=== PATIENT | female | born 1950 | race Caucasian/White ===

== ENCOUNTER 2022-01-05 18:53 | Inpatient (IN) | payer MEDICARE, BC, SELFPAY ==
--- NOTE | 2022-01-05 18:58 | ECG_ITS ---
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 Measurements Intervals [place] Rate: 111 P: [place]: QRS: 37 QRSD: 92 T: 4 QT: 369 QTc: 504 Interpretive Statements ATRIAL FIBRILLATION WITH RAPID VENTRICULAR RESPONSE WITH ABERRANT CONDUCTION OR VENTRICULAR PREMATURE COMPLEXES ABNORMAL RHYTHM ECG No previous ECG available for comparison Electronically Signed On 01-06-2022 20:31:03 CDT by Harsh Hernandez M.D. [email or web address] Cardiovascularchillicothe va medical centerPrescription Eyewear/store/NU/[id number]/[email or web address]/[id number] f
[2022-01-05 19:16] VITALS: BP 120/69; PULSE 91; RESP 18; TEMP 36.1; O2SAT 97; BMI 38.7
--- NOTE | 2022-01-05 20:58 | ECG_ITS ---
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 Measurements Intervals [place] Rate: 97 P: [place]: QRS: 6 QRSD: 96 T: -22 QT: 386 QTc: 491 Interpretive Statements ATRIAL FIBRILLATION MODERATE ST DEPRESSION [0.05+ mV ST DEPRESSION] No previous ECG available for comparison Electronically Signed On 01-06-2022 20:48:20 CDT by Harsh Hernandez M.D. [email or web address] valley medical centerEnduraCare AcuteCare/store/OM/[id number]
--- NOTE | 2022-01-05 21:07 | CTR_ITS ---
PROCEDURE INFORMATION: Exam: CT Abdomen And Pelvis With Contrast Exam date and time: 01/05/2022 10:49 PM Age: 71 years old Clinical indication: Abdominal pain; Prior surgery; Surgery type: Gb; Patient HX: C/O epigastric pain. Congenital defect of single kidney. History of breast/cervical cancer. ; Additional info: Abd pain TECHNIQUE: Imaging protocol: Computed tomography of the abdomen and pelvis with contrast. Radiation optimization: All CT scans at this facility use at least one of these dose optimization techniques: automated exposure control; mA and/or kV adjustment per patient size (includes targeted exams where dose is matched to clinical indication); or iterative reconstruction. Contrast material: VISI 320; Contrast volume: 95 ml; Contrast route: INTRAVENOUS (IV); COMPARISON: No relevant prior studies available. RADIATION DOSE METRICS: Total DLP (mGy-cm): 1121.13 FINDINGS: Liver: Normal. No mass. Gallbladder and bile ducts: Surgical clips in the gallbladder fossa consistent with cholecystectomy. Dilatation of the intra-and extrahepatic biliary tree which can be normal following cholecystectomy. Pancreas: Normal. No ductal dilation. Spleen: Normal. No splenomegaly. Adrenal glands: Normal. No mass. Kidneys and ureters: Probable tiny partially calcified right renal rim the/scar most consistent with in utero infarct or other in utero insult. Axial series 3, images 22-29. 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 One or more nonobstructing left renal calyceal stones. Stomach and bowel: Moderate descending and/or sigmoid colon diverticulosis without diverticulitis. Appendix: No evidence of appendicitis. Intraperitoneal space: Unremarkable. No free air. No significant fluid collection. Vasculature: Unremarkable. No abdominal aortic aneurysm. Lymph nodes: Unremarkable. No enlarged lymph nodes. Urinary bladder: Unremarkable as visualized. Reproductive: Status post hysterectomy. Bones/joints: Multilevel moderate to severe facet hypertrophy and degenerative change. Soft tissues: Unremarkable. CT/CT abdomen pelvis w con* [id number] IMPRESSION: 1. Dilatation of the intra-and extrahepatic biliary tree which can be normal following cholecystectomy. 2. Probable tiny partially calcified right renal rim the/scar most consistent with in utero infarct or other in utero insult. Axial series 3, images 22-29. 3. 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 4. Moderate descending and/or sigmoid colon diverticulosis without diverticulitis.
[2022-01-05] MEDS: sodium chloride 0.9% 500 ML IV (21:16)
--- NOTE | 2022-01-05 21:16 | ED_ITS ---
Documented by User: Socorro Alford MD 01/09/22 11:48 HPI - General Adult General: Chief complaint: Arrhythmia/Palpitations Stated complaint: afib Time Seen by Provider: 01/05/22 20:34 History of Present Illness: Patient is a 71-year-old female history of COPD on 3L oxygen baseline, recent pneumonia, atrial fibrillation on Xarelto presenting to the emergency room with complaints of midepigastric abdominal fullness for the last 10 days followed by 6 days of palpitation and rapid heart rate. Patient tells me that for the last 10 days, patient has had midepigastric abdominal fullness does not relieved. Patient denies that the pain is worse with eating. He denies any nausea/vomiting, diarrhea, melena/hematochezia. Patient denies any active chest pain but reports her abdominal pain is worse with sitting up. Patient denies any active chest pain, exertional chest pain, dyspnea or pleuritic chest pain. Patient reports that she is compliant with her Xarelto. Patient tells me that she takes ibutilide and bisoprolol for her atrial fibrillation. Patient recently moved from [place] to [place]. Patient has yet to follow-up with a physical therapist clinic director here. Patient denies any cough, runny nose, sore throat, increased oxygen requirement, fever/chills today. Patient denies any complaints. Onset:10 days of midepigastric abd pain and 6 days of palpitations Duration:ongoing Location:home Severity:moderate Associated symptoms: Reports palpitations; Deny chest pain, dyspnea, nausea, rash or vomiting Review of Systems Const: Denies: fever(s) or chills Eyes: Denies: change in vision ENMT: Denies: mouth pain Card: Reports: palpitations; Denies: chest pain Resp: Denies: dyspnea or non-productive cough GI: Reports: abdominal pain (+midepigastric abdominal fullness); Denies: nausea, vomiting or diarrhea : Denies: dysuria Musc: Denies: extremity pain Skin/Breast: Denies: rash or new lesions Neuro: Denies: weakness in extremities Psych: Reports: other (Normal mood) Mahesh/Lymph: Denies: easy bruising PFS ED PFSH: Medical History Atrial fibrillation COPD (chronic obstructive pulmonary disease) HTN (hypertension) with goal to be determined Surgical History Hx of cholecystectomy Social History Smoking and tobacco status: current every day smoker Alcohol intake: never Substance/Drug Use: never Marital status: / Physical Exam Const: COMMON NORMALS: alert HENMT: COMMON NORMALS: atraumatic HEAD & SCALP: atraumatic MOUTH: moist mucous membranes not abnormal Eye: COMMON NORMALS: EOMs intact bilaterally and conjunctivae normal CONJUNCTIVA: Yes conjunctivae normal Neck/C-Spine: COMMON NORMALS: full ROM and supple Resp: COMMON NORMALS: normal respiratory effort and clear to auscultation bilaterally AUSCULTATION: clear to auscultation bilaterally Cardio: RATE: tachycardic OTHER: +irregular irregular tachycardia GI: COMMON NORMALS: Soft to palpation and non-tender PALPATION: Yes Soft to palpation OTHER: No focal TTP. NO guarding rebound, guarding, rigidity. No CVA tenderness to percussion. Neg Galloway/Neg McBurney's point tenderness, no suprabupic tenderness to palpation. Extremity: COMMON NORMALS: full ROM Neuro: SENSORIUM/ORIENTATION: Yes alert MOTOR EXAM: No Abnormal motor strength present and Other motor observations present (no focal motor deficits) Psych: COMMON NORMALS: speech normal SPEECH: Yes normal speech MOOD & AFFECT: Yes euthymic mood Course Vital Signs: Vital signs: Vital Signs Temperature 98 F 01/07/22 13:22 Pulse Rate 56 L 01/07/22 13:22 Respiratory Rate 24 H 01/07/22 13:22 Blood Pressure 102/53 01/07/22 13:22 Pulse Oximetry 93 01/07/22 13:22 Oxygen Delivery Me thod 01/07/22 08:00 Oxygen Flow Rate 2 01/07/22 08:00 MDM - General Adult Medical Decision Making 71-year-old female history of COPD on 3 L oxygen, atrial fibrillation, hypertension, smoking presenting to the emergency room for evaluation of palpitation and midepigastric Brian fullness. On physical exam, patient is noted to have irregular irregular heart rate. Patient is noted to be occasionally in atrial fibrillation with RVR to the 110s to 140s on the athletic monitor. Rest of exam within normal limit. Lab work-up showed white count 12.3. Hemoglobin 16.0 no prior for comparison. Electrolytes largely within normal limit. Patient will be admitted for AFIB with RVR Lab Data : 01/07/22 05:30 01/07/22 05:30 Radiology Impressions Abdomen/Pelvis CT 01/05/22 21:07 IMPRESSION: 1. Dilatation of the intra-and extrahepatic biliary tree which can be normal following cholecystectomy. 2. Probable tiny partially calcified right renal rim the/scar most consistent with in utero infarct or other in utero insult. Axial series 3, images 22-29. 3. 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 4. Moderate descending and/or sigmoid colon diverticulosis without diverticulitis. Chest X-Ray 01/06/22 00:32 IMPRESSION: Mild cardiomegaly. Laboratory Results WBC 12.3 10^3/uL (4.0-10.0) H 01/05/22 21:10 RBC 5.03 10^6/uL (4.1-5.3) 01/05/22 21:10 Hgb 16.0 g/dL (11.5-15.3) H 01/05/22 21:10 Hct 50.0 % (37.0-47.0) H 01/05/22 21:10 MCV 99.4 fl (81-99) H 01/05/22 21:10 MCH 31.8 pg (28.0-34.0) 01/05/22 21:10 MCHC 32.0 g/dL (30.0-36.0) 01/05/22 21:10 RDW 13.0 % (12.1-15.1) 01/05/22 21:10 Plt Count 293 10^3/cmm (130-400) 01/05/22 21:10 MPV 9.7 fL (7.4-10.4) 01/05/22 21:10 Neut % (Auto) 73.6 % 01/05/22 21:10 Lymph % (Auto) 17.8 % 01/05/22 21:10 [place] % (Auto) 7.9 % 01/05/22 21:10 Eos % (Auto) 0.2 % 01/05/22 21:10 Baso % (Auto) 0.2 % 01/05/22 21:10 Neut # (Auto) 9.09 10^3/uL (1.8-7.7) H 01/05/22 21:10 Lymph # (Auto) 2.2 10^3/uL (0.8-4.8) 01/05/22 21:10 [place] # (Auto) 1.0 10^3/uL (0.2-0.9) H 01/05/22 21:10 Eos # (Auto) 0.0 10^3/uL (0.0-0.8) 01/05/22 21:10 Baso # (Auto) 0.0 10^3/uL (0.0-0.1) 01/05/22 21:10 Nucleated RBC % (auto) 0 % 01/05/22 21:10 Nucleated RBCs # 0.0 /100WBC 01/05/22 21:10 Sodium 142 mmol/L (136-145) 01/05/22 21:10 Potassium 3.2 mmol/L (3.5-5.1) L 01/05/22 21:10 Chloride 96 mmol/L (98-107) L 01/05/22 21:10 Carbon Dioxide 36 mmol/L (22-29) H 01/05/22 21:10 Anion Gap 13.2 (5-19) 01/05/22 21:10 BUN 20 mg/dL (8-23) 01/05/22 21:10 Creatinine 1.3 mg/dL (0.5-0.9) H 01/05/22 21:10 GFR Calculation Not Reportable 01/05/22 21:10 Glucose 113 mg/dL (65-115) 01/05/22 21:10 Estimat Average Glucose 154 01/05/22 21:10 Hemoglobin A1c 7.0 % (4.0-6.0) H 01/05/22 21:10 Calculated Osmolality 297 mOsm/kg (285-295) H 01/05/22 21:10 Lactate 1.5 mmol/L (0.5-2.2) 01/05/22 21:10 Calcium 10.2 mg/dL (8.5-10.5) 01/05/22 21:10 Magnesium 2.1 mg/dL (1.7-2.3) 01/05/22 21:10 Magnesium Cancelled 01/05/22 21:10 Total Bilirubin 0.7 mg/dL (0.15-1.2) 01/05/22 21:10 AST 24 U/L (0-32) 01/05/22 21:10 ALT 13 U/L (0-33) 01/05/22 21:10 Alkaline Phosphatase 74 IU/L (35-105) 01/05/22 21:10 Troponin T Baseline 41 ng/L (0-10) H 01/05/22 21:10 Troponin T 120 Minute 33.67 ng/L (0-10) H 01/05/22 23:10 Delta Troponin T -7.33 ABS# (0-10) L 01/05/22 23:10 NT-Pro-B Natriuret Pep 1844 pg/mL (0-125) H 01/05/22 21:10 Total Protein 6.3 g/dL (6.6-8.7) L 01/05/22 21:10 Albumin 4.2 g/dL (3.5-5.2) 01/05/22 21:10 Globulin 2.1 g/dL (1.3-4.6) 01/05/22 21:10 Lipase 25 U/L (13-60) 01/05/22 21:10 Discharge Plan Discharge Patient Disposition: Admitted As Inpatient Admit Provider: Ezra Chaudhari Clinical Impression: Atrial fibrillation, Abdominal pain, Atrial fibrillation with rapid ventricular response, Dehydration, Hypokalemia Condition: Stable Discharge Diet: Cardiac Discharge Activity: Resume usual activity Sign Out Sign Out Data: Patient Sign Out occurred on 01/05/22 at 23:15. Patient's care was discussed, and care was transferred from to Dhruv Hensley MD. Coding Level of Care Code ED Research Laboratory Manager for Chg Fwd Exam Comprehensive Documented by User: Dhruv Hensley MD 01/17/22 21:02 HPI - General Adult 2 General: Chief complaint: Arrhythmia/Palpitations Stated complaint: afib Time Seen by Provider: 01/05/22 20:34 [facility] ED 2 PFSH: Medical History Atrial fibrillation COPD (chronic obstructive pulmonary disease) HTN (hypertension) with goal to be determined Surgical History Hx of cholecystectomy Social History Smoking and tobacco status: current every day smoker Alcohol intake: never Substance/Drug Use: never Marital status: / Course Vital Signs: Vital signs: Vital Signs Temperature 98 F 01/07/22 13:22 Pulse Rate 56 L 01/07/22 13:22 Respiratory Rate 24 H 01/07/22 13:22 Blood Pressure 102/53 01/07/22 13:22 Pulse Oximetry 93 01/07/22 13:22 Oxygen Delivery Me thod 01/07/22 08:00 Oxygen Flow Rate 2 01/07/22 08:00 [facility] - General Adult Medical Decision Making 71-year-old female history of COPD on 3 L oxygen, atrial fibrillation, hyperten josue, smoking presenting to the emergency room for evaluation of palpitation and midepigastric Brian fullness. On physical exam, patient is noted to have irregular irregular heart rate. Patient is noted to be occasionally in atrial fibrillation with RVR to the 110s to 140s on the athletic monitor. Rest of exam within normal limit. Lab work-up showed white count 12.3. Hemoglobin 16.0 no prior for comparison. Electrolytes largely within normal limit. Patient will be admitted for AFIB with RVR Patient care handoff received from Dr. Alford pending completion of evaluation. No evidence of urinary tract infection. Despite treatment patient continued to have significant debility including rapid ventricle response. Given complex history of arrhythmia she requires a cardiology consult for medication titration. Patient agreeable with plan. Discussed with hospitalist service and patient admitted to the hospital in satisfactory condition. Dhruv Hensley MD Emergency Medicine Lab Data : 01/07/22 05:30 01/07/22 05:30 Radiology Impressions Abdomen/Pelvis CT 01/05/22 21:07 IMPRESSION: 1. Dilatation of the intra-and extrahepatic biliary tree which can be normal following cholecystectomy. 2. Probable tiny partially calcified right renal rim the/scar most consistent with in utero infarct or other in utero insult. Axial series 3, images 22-29. 3. 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 4. Moderate descending and/or sigmoid colon diverticulosis without diverticulitis. Chest X-Ray 01/06/22 00:32
[2022-01-05] MEDS: metoprolol tartrate 50 mg Tablet PO (21:17)
[2022-01-05 21:18] LABS: Basophils % 0.2 %; Eosinophils % 0.2 %; Lymphocytes # 2.2 10^3/uL (0.8-4.8); Lymphocytes % 17.8 %; Mean Corpuscular Hemoglobin 31.8 pg (28.0-34.0); Mean Corpuscular Volume 99.4 fl (81-99); Mean Platelet Volume 9.7 fL (7.4-10.4); Monocytes % 7.9 %; Neutrophils # 9.09 10^3/uL (1.8-7.7); Neutrophils % 73.6 %; Nucleated Red Blood Cells % 0 %; Platelet Count 293 10^3/cmm (130-400); Red Blood Count 5.03 10^6/uL (4.1-5.3); White Blood Count 12.3 10^3/uL (4.0-10.0)
[2022-01-05] MEDS: metoprolol tartrate 1 mg/1 mL SDV 5 mL 5 MG IVP (21:18)
[2022-01-05 21:37] LABS: Lactate (Lactic Acid level) 1.5 mmol/L (0.5-2.2)
[2022-01-05 21:41] VITALS: BP 104/67; PULSE 112; RESP 18; O2SAT 96
[2022-01-05 21:51] VITALS: BP 96/58; PULSE 113; RESP 16; O2SAT 97
[2022-01-05 22:09] LABS: Troponin(5th) Baseline 41 ng/L (0-10)
[2022-01-05 22:14] LABS: Alanine Aminotransferase 13 U/L (0-33); Albumin Level 4.2 g/dL (3.5-5.2); Alkaline Phosphatase 74 IU/L (35-105); Anion Gap 13.2 (5-19); Aspartate Amino Transferase 24 U/L (0-32); Blood Urea Nitrogen 20 mg/dL (8-23); Calcium 10.2 mg/dL (8.5-10.5); Carbon Dioxide 36 mmol/L (22-29); Chloride 96 mmol/L (98-107); Globulin 2.1 g/dL (1.3-4.6); Glucose 113 mg/dL (65-115); Lipase 25 U/L (13-60); Magnesium 2.1 mg/dL (1.7-2.3); Osmolality Calculated 297 mOsm/kg (285-295); Potassium 3.2 mmol/L (3.5-5.1); Sodium 142 mmol/L (136-145); Total Bilirubin 0.7 mg/dL (0.15-1.2); Total Protein 6.3 g/dL (6.6-8.7)
[2022-01-05] MEDS: digoxin 250 mcg/ml INJ 2 mL IVP (22:21)
[2022-01-05] MEDS: iodixanol 320 mg/mL 100mL Btl IV (23:02)
[2022-01-05 23:32] LABS: Estmated Average Glucose 154
[2022-01-05 23:53] LABS: Troponin 5 2HR 33.67 ng/L (0-10)
[2022-01-05] MEDS: potassium chloride ER 20 mEq Tablet 40 MEQ PO (23:55)
[2022-01-06] VITALS (87 sets, daily range): BP systolic 83–166; BP diastolic 47–81; PULSE 45–85; RESP 11–30; TEMP 36–36.7; O2SAT 86–100; BMI 39.2
--- NOTE | 2022-01-06 00:32 | XRR_ITS ---
PROCEDURE INFORMATION: Exam: XR Chest Exam date and time: 01/06/2022 12:40 AM Age: 71 years old Clinical indication: Pain; Patient HX: C/O palpitations. History of afib and copd. ; Additional info: Palpataion TECHNIQUE: Imaging protocol: Radiologic exam of the chest. Views: 1 view. COMPARISON: CT abdomen pelvis w con* [id number] 01/05/2022 10:49 PM FINDINGS: Lungs: Unremarkable. No consolidation. Pleural spaces: Unremarkable. No pleural effusion. No pneumothorax. Heart/Mediastinum: Mild cardiomegaly. Bones/joints: Unremarkable. XR/XR chest 1V portable [id number] IMPRESSION: Mild cardiomegaly.
[2022-01-06 00:46] LABS: Add Urine Microscopic? NO; Charge for UA Resulting for Rev
[2022-01-06 00:56] LABS: Glucose Urine UA Norm (Normal); Ketones Urine Negative (Negative); Protein Urine Neg (Negative); Urine Appearance Clear (CLEAR); Urine Color Yellow (Yellow); pH Urine 5 (5-7)
[2022-01-06 00:57] LABS: Bilirubin Urine Neg (Negative); Blood Urine Neg (Negative); Leukocyte Esterase Urine Negative (Negative); Nitrate Urine Negative (Negative); Urobilinogen Urine Norm (Negative)
--- NOTE | 2022-01-06 00:58 | ECG_ITS ---
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 Measurements Intervals [place] Rate: 111 P: [place]: QRS: 28 QRSD: 91 T: -14 QT: 374 QTc: 509 Interpretive Statements ATRIAL FIBRILLATION WITH RAPID VENTRICULAR RESPONSE WITH ABERRANT CONDUCTION OR VENTRICULAR PREMATURE COMPLEXES MODERATE ST DEPRESSION [0.05+ mV ST DEPRESSION] Compared to ECG 01/05/2022 21:40:59 Aberrant conduction of supraventricular beat(s) now present Ventricular premature complex(es) now present ST (T wave) deviation still present Electronically Signed On 01-06-2022 20:48:06 CDT by Harsh Hernandez M.D. [id number]
[2022-01-06 01:05] LABS: NT Pro B Type Natriuretic Pept 1844 pg/mL (0-125)
--- NOTE | 2022-01-06 02:17 | P.HP_ITS ---
Providers/Chief Complaint Admitting Physician: Ezra Chaudhari Chief Complaint: afib History of Present Illness Pleasant 71-year-old lady who had moved down here recently from [place] after losing her there, she moved down here to be closer with her sons. She has history of COPD, as well as pneumonia due to resistant organism in September since when she has been on oxygen about 3 L nasal cannula at home. She presented to ER with about 10-day history of upper abdominal discomfort, fullness, several weeks progressive lower extremity swelling, and also about 6 days of palpitations. In ER she was noted to be in atrial fibrillation with RVR, heart rates in 100- teens. She is normally on antiarrhythmic management with dofetilide, on Xarelto. In ER she was metoprolol IV push 5 mg x 2, 50 mg p.o. metoprolol. With limited response, also was given a dose of digoxin 250 MCG IV push x1. With mild hypokalemia, potassium 3.2, was given oral 40 mEq of potassium. NT proBNP 1844. Chest x-ray with noted cardiomegaly. CT abdomen pelvis with dilation of intra and extrahepatic biliary tree which can be normal following cholecystectomy. Probable tiny partially calcified right renal renal scar most consistent with in utero infarct or other injury or insult. Some prominence of the left kidney consistent with hypertrophy secondary right renal demise. Moderate descending sigmoid colon diverticulosis without diverticulitis. Details in full report. Review of Systems 2 Const: Denies: fever(s), chills, body aches or malaise Eyes: Denies: change in vision, eye discomfort or eye redness ENMT: Denies: throat pain, oral sores or ear or mastoid pain Card: Reports: palpitations, edema, swelling of feet/ankles and dyspnea on exertion; Denies: chest pain or pre-syncope Resp: Denies: dyspnea, productive cough, change in phlegm color or hemoptysis GI: Reports: abdominal pain and bloating; Denies: nausea, vomiting, diarrhea, constipation, hematochezia or melena : Denies: flank pain, urinary frequency or hematuria Musc: Denies: back pain, joint swelling or joint redness Skin/Breast: Denies: rash or new lesions Neuro: Denies: headache(s), numbness in extremities, weakness in extremities, dizziness, confusion or seizure-like activity Endo: Denies: polyuria or polydipsia Mahesh/Lymph: Denies: easy bleeding or tender lymph nodes All/Imm: Denies: urticaria or tongue swelling Medications/Allergies Allergies Allergy/AdvReac Type Severity Reaction Status Date / Time morphine Allergy Unknown Verified 01/05/22 21:43 Penicillins Allergy Unknown Verified 01/05/22 21:43 PFSH Acute PFSH: Medical History Atrial fibrillation COPD (chronic obstructive pulmonary disease) HTN (hypertension) with goal to be determined Surgical History Hx of cholecystectomy Social History Smoking and tobacco status: current every day smoker Alcohol intake: never Substance/Drug Use: never Marital status: / Vitals/I&O/Wt Last Vital Signs Temp 97 F L 01/05/22 19:16 Pulse 47 L 01/06/22 02:02 Resp 18 01/06/22 02:02 BP 106/61 01/06/22 02:02 Pulse Ox 96 01/06/22 02:02 01/05/22 01/05/22 01/06/22 14:59 22:59 06:59 Intake Total 500 / 500 Balance 500 / 500 Weight last 48 hrs Weight 108.862 kg Physical Exam Const: COMMON NORMALS: alert GENERAL APPEARANCE: cooperative NUTRITIONAL APPEARANCE: obese ORIENTATION/CONSCIOUSNESS: Yes awake HENMT: COMMON NORMALS: normocephalic, EAC's normal, Normal external nose present and moist oral mucous membranes HEAD & SCALP: normocephalic NOSE: Normal external nose present EXTERNAL AUDITORY CANAL: EAC's normal Neck/C-Spine: COMMON NORMALS: no meningeal signs Chest: CHEST: Yes Symmetrical chest wall rise Resp: COMMON NORMALS: clear to auscultation bilaterally AUSCULTATION: clear to auscultation bilaterally Cardio: COMMON NORMALS: regular rate, regular rhythm and No murmurs present (Cardio) RATE: regular rate RHYTHM: regular rhythm GI: COMMON NORMALS: Soft to palpation and non-tender INSPECTION: Yes abdominal distension PALPATION: Yes Soft to palpation Extremity: GENERAL: Yes edema (3+) Neuro: COMMON NORMALS: moves all extremities SENSORIUM/ORIENTATION: Yes alert MENINGEAL SIGNS: Yes no meningeal signs Psych: COMMON NORMALS: mental status grossly normal Skin: COMMON NORMALS: no wounds RASHES: no rashes Data : 01/05/22 21:10 01/05/22 21:10 A&P Assessment and plan (1) Atrial fibrillation with rapid ventricular response: Symptomatic A. fib with RVR, with palpitations, possibly contributing also to volume overload/acute CHF. Without initial response after metoprolol 5 mg IV times 2+ 50 mg p.o., subsequently also 250 MCG IV digoxin. Replacement potassium. Just now had converted back to sinus rhythm, now bradycardic, heart rate 47. Blood pressure soft. Continue to monitor on telemetry. Reassess blood pressure. Complete troponin EKG series to assess for ischemia. Also with volume overload, possible acute CHF, assess TTE. Reassess electrolytes and replace K and Mg as needed. Was on bisoprolol at home. Currently continue metoprolol 25 mg daily. Tanesha. Report from ER she is also on ibutilide, however, I see prescription for dofetilide 150mcg BID on external med history this month. She herself does not remember which one it is, did have a bag of medications with her in ER, but says that it was sent home with family. I tried calling her son Chinedu, but calls are not currently accepted at the phone number listed. Please confirm in the morning which antiarrhythmic she takes. QTC is also noted to be 509, in case medication is dofetilide (or ibutilide) consider discussing with on-call cardiology whether that medication is still safe to continue. Especially now with bradycardia. Follow-up magnesium. Check TSH. Will need to establish with cardiology. Status: Acute (2) Volume overload: Volume overload with lower extremity BL 3+ edema. Cardiomegaly noted. Elevated BNP. Possible acute CHF, unknown. Assess TTE. Reports takes Lasix PO at home. For now IV 40 mg twice daily for now. Monitor I&O. Weights. Renal function. Electrolytes. Status: Acute (3) Abdominal pain: Epigastric abdominal discomfort, also has been having abdominal fullness/distention. Discussed with her consideration of symptoms due to volume overload, CHF. CT abdomen pelvis with some dilation of biliary ductal system, likely after cholecystectomy. Diverticulosis. No findings to explain abdominal discomfort. Received recent prescription for prednisone on external med history. Possibly steroid-induced gastritis. Add PPI. Status: Acute (4) HERBER (acute kidney injury): HERBER vs CKD. With suspect CKD given left kidney atrophy. Some compensatory right kidney hypertrophy. Recheck renal function. Avoid nephrotoxins. Status: Acute Plan COPD: Not currently in exacerbation Pneumonia in September, reports with resistant organism for which required IV antibiotic infusions, since then on 3 L nasal cannula oxygen Chronic abdominal pain reports with prior work-up including at [facility] Home medications need to be reviewed. Attestations Medical Necessity Statement*: Admission of over 2 midnights is anticipated for assessment and management of possible acute CHF, optimization of control of atrial fibrillation, with QTC prolongation, now with bradycardia. Coding Level of Care Code Acute Seed Mill Superintendent for Kraigg Fwd Diagnoses Atrial fibrillation with rapid ventricular response I48.91 Abdominal pain R10.9 HERBER (acute kidney injury) N17.9 Volume overload E87.70
--- NOTE | 2022-01-06 03:28 | USCV_ITS ---
Rebeca Álvarez Age: 71 Gender: F : 1950 Exam Date: 01/06/2022 05:48 Ordering Phys: Ezra Chaudhari MD Technologist: MINI Exam Location: [facility] [place] Indication: A FIB, CARDIOMEGALY BP: 142 / 73 HR: 52 Rhythm: Atrial fibrillation Technical Quality: Very technically difficult study MEASUREMENTS (Male / Female) Normal Values 2D ECHO LVOT Diameter 2.0 cm LV Ejection Fraction MOD 2C 61.8 % LV Ejection Fraction 2C AL 63.9 % LA Diameter 2.6 cm Aorta at Sinotubular Diameter 2.8 cm DOPPLER MV Peak Velocity 113.0 cm/s MV Area PHT 4.5 cm squared MV E' Velocity 48.5 cm/s Mitral E to MV E' Ratio 11.5 Mitral E to LV E' Lateral Ratio 13.0 Mitral E to LV E' Septal Ratio 10.3 Right Atrial Pressure 8.0 mmHg FINDINGS Left Ventricle Contrast echocardiogram was used to delineate the LV borders. Normal LV size ejection fraction of 62%. No gross wall motion abnormalities. Right Ventricle The right ventricle appears to be mildly dilated with slightly diminished ejection fraction Right Atrium Could not be visualized well Left Atrium Left atrium not well visualized. Mitral Valve Morphology could not be delineated that well. Aortic Valve Morphology could not be delineated that well. Tricuspid Valve Morphology could not be delineated that well. Pulmonic Valve Morphology could not be delineated that well. Pericardium No pericardial effusion. Aorta Normal aortic annulus size. IVC Inferior vena cava not visualized. CONCLUSIONS Contrast echocardiogram was used to delineate the LV borders. Normal LV size ejection fraction of 62%. No gross wall motion abnormalities. The right ventricle appears to be mildly dilated with slightly diminished ejection fraction There is no pericardial effusion. There are no intracardiac masses. Technically difficult study Dr Massiel Cabezas MD [facility] (Electronically Signed) Final Date: 06 January 2022 19:23 S
[2022-01-06 04:43] LABS: Basophils % 0.3 %; Eosinophils # 0.1 10^3/uL (0.0-0.8); Eosinophils % 0.7 %; Hematocrit 47.3 % (37.0-47.0); Hemoglobin 15.2 g/dL (11.5-15.3); Lymphocytes # 2.2 10^3/uL (0.8-4.8); Lymphocytes % 19.4 %; Mean Corpuscular HGB Conc 32.1 g/dL (30.0-36.0); Mean Corpuscular Hemoglobin 32.3 pg (28.0-34.0); Mean Corpuscular Volume 100.4 fl (81-99); Mean Platelet Volume 10.3 fL (7.4-10.4); Monocytes # 0.8 10^3/uL (0.2-0.9); Monocytes % 7.6 %; Neutrophils # 7.92 10^3/uL (1.8-7.7); Neutrophils % 71.6 %; Nucleated Red Blood Cells % 0 %; Platelet Count 307 10^3/cmm (130-400); Red Blood Count 4.71 10^6/uL (4.1-5.3); Red Cell Distribution Width 13.1 % (12.1-15.1); White Blood Count 11.1 10^3/uL (4.0-10.0)
[2022-01-06 05:01] LABS: Alanine Aminotransferase 12 U/L (0-33); Albumin Level 3.7 g/dL (3.5-5.2); Alkaline Phosphatase 63 IU/L (35-105); Aspartate Amino Transferase 24 U/L (0-32); Blood Urea Nitrogen 18 mg/dL (8-23); Calcium 9.4 mg/dL (8.5-10.5); Carbon Dioxide 36 mmol/L (22-29); Chloride 99 mmol/L (98-107); Globulin 1.5 g/dL (1.3-4.6); Glucose 91 mg/dL (65-115); Osmolality Calculated 299 mOsm/kg (285-295); Sodium 144 mmol/L (136-145); Total Bilirubin 0.9 mg/dL (0.15-1.2); Total Protein 5.2 g/dL (6.6-8.7)
[2022-01-06 05:05] LABS: Troponin 5 6HR 43.93 ng/L (0-10)
[2022-01-06 05:13] LABS: Anion Gap 12.3 (5-19); Potassium 3.3 mmol/L (3.5-5.1)
[2022-01-06 05:14] LABS: Troponin 5 6HR Delta 2.93 ng/L (0-12)
[2022-01-06 05:50] LABS: Thyroid Stimulating Hormone 0.85 uIU/mL (0.27-4.20)
[2022-01-06] MEDS: perflutren protein-a microsphr 0.22 mg/mL SDV 3 mL IV (06:37)
[2022-01-06] MEDS: FUROsemide 10 mg/mL SDV 4mL 40 MG IVP (06:58)
[2022-01-06] MEDS: rivaroxaban 10 mg Tablet 20 MG PO (08:19)
[2022-01-06] MEDS: pantoprazole DR 40 mg Tablet PO (08:19)
[2022-01-06] MEDS: potassium chloride ER 20 mEq Tablet 40 MEQ PO (09:16)
--- NOTE | 2022-01-06 09:20 | PC.PHAR ---
PT UNSURE OF OTHER MEDICATIONS SHE TAKES- UNABLE TO VERIFY WITH HER SON- HILDA STATES SHE HAS A SCRIPT FOR LANTUS BUT IT HAS NOT BEEN FILLED- PREDNISONE SHOULD HAVE BEEN FINISHED ON 01/01/22
--- NOTE | 2022-01-06 09:49 | ECG_ITS ---
[facility] Test Date: 2022-01-06 Pat Name: Rebeca Álvarez Department: Room: [facility] Gender: Female Car Shagger: : 1950 Requested By: Naeem Hale Order Number: [id number] Mohamud MD: Harsh Hernandez M.D. Measurements Intervals Media Rate: 56 P: -21 OK: 191 QRS: 22 QRSD: 97 T: 39 QT: 440 QTc: 427 Interpretive Statements SINUS BRADYCARDIA MODERATE T-WAVE ABNORMALITY, CONSIDER ANTEROLATERAL ISCHEMIA [-0.1+ mV T-WAVE IN V3-V6] Compared to ECG 01/05/2022 23:17:40 T-wave abnormality now present Possible ischemia now present Atrial fibrillation no longer present Aberrant conduction of supraventricular beat(s) no longer present Ventricular premature complex(es) no longer present ST (T wave) deviation no longer present Electronically Signed On 01-06-2022 20:41:48 CDT by Harsh Hernandez M.D. [id number]
--- NOTE | 2022-01-06 12:41 | PC.CHAP ---
Pastoral Care Encounter/Spiritual Assessment Type of Contact [] Declined yarn dyer visit [] Patient/Family/Request visit [] Outpatient visit [] Follow-up visit [] Physician referral [] Code/Alert [x] Routine visit [] Staff referral [] Actively dying [] Patient sleeping [] Family support [] [] Out of room [] Palliative care [] [x] Receiving care in room [] Pre-surgical visit [] Trauma [] Long length of stay [x] ICU visit [] Other: Relational/Emotional Strength [] Patient feels connected with others/family/visitors/staff [] Distress [] Loneliness/isolation [] Abandonment Spirituality of Patient [] Person of Karen [] Attends Religious of their Karen [] Believes in Prayer [] Reads Bible or Yazdanism materials [] There are Spiritual issues to be addressed Sleep Scientist Interventions [x] Prayer [] Active listening [] Non-anxious presence [] Spiritual/emotional support [] Crisis/trauma care [] Spiritual counseling [] Bereavement support [] Provided bereavement packet [] Provided Bible/devotional materials [] Provided toy/stuffed animal, coloring book to patient or family member [] Provided Communion [] Anointing/[place] [] Salvation [x] Completed spiritual assessment [] Other: Impact on Illness or Injury [] Angry [] Fearful [] Anxious [] Often cries [] Exhaustion [] Unable to work [] Unable to attend evangelical [] Unable to walk/stand [] Unable to read [] Unable to drive [] Unable to eat/drink [] Unable to sleep [] Unable to be with family [] Patient intubated [] Other: Summary Time spent with patient
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
[2022-01-06] MEDS: metoprolol tartrate 25 mg Tablet 12.5 MG PO (18:04)
[2022-01-06] MEDS: HYDROcodone-acetaminophen 10-325 mg Tablet 1 TAB PO (19:50)
--- NOTE | 2022-01-06 21:17 | PC.NURSE ---
Patient has Metoprolol 12.5 PO ordered for 2100. Last given at 1800 this evening. Heart rate 48. Called Dr. Cabezas to confirm holding this medication. Dr. Cabezas confirmed to hold and give next scheduled dose in the morning at 0900.
[2022-01-07] VITALS (11 sets, daily range): BP systolic 101–128; BP diastolic 49–67; PULSE 44–80; RESP 15–24; TEMP 36.6–36.7; O2SAT 90–97
[2022-01-07] MEDS: HYDROcodone-acetaminophen 10-325 mg Tablet 1 TAB PO ×2 (04:32→12:52)
--- NOTE | 2022-01-07 05:48 | PC.NURSE ---
Patient continues to remove blood pressure cuff throughout the night.
[2022-01-07 06:30] LABS: Basophils % 0.3 %; Eosinophils # 0.1 10^3/uL (0.0-0.8); Eosinophils % 1.2 %; Hematocrit 43.6 % (37.0-47.0); Hemoglobin 13.5 g/dL (11.5-15.3); Lymphocytes # 1.9 10^3/uL (0.8-4.8); Lymphocytes % 17.1 %; Mean Corpuscular Hemoglobin 31.3 pg (28.0-34.0); Mean Corpuscular Volume 100.9 fl (81-99); Mean Platelet Volume 10.5 fL (7.4-10.4); Monocytes # 1.1 10^3/uL (0.2-0.9); Monocytes % 9.5 %; Neutrophils # 8.04 10^3/uL (1.8-7.7); Neutrophils % 71.5 %; Nucleated Red Blood Cells % 0 %; Platelet Count 270 10^3/cmm (130-400); Red Blood Count 4.32 10^6/uL (4.1-5.3); Red Cell Distribution Width 13.2 % (12.1-15.1); White Blood Count 11.3 10^3/uL (4.0-10.0)
[2022-01-07 06:56] LABS: Alanine Aminotransferase 10 U/L (0-33); Albumin Level 3.5 g/dL (3.5-5.2); Alkaline Phosphatase 61 IU/L (35-105); Anion Gap 10.1 (5-19); Aspartate Amino Transferase 17 U/L (0-32); Blood Urea Nitrogen 16 mg/dL (8-23); Calcium 9.3 mg/dL (8.5-10.5); Carbon Dioxide 37 mmol/L (22-29); Chloride 100 mmol/L (98-107); Globulin 1.9 g/dL (1.3-4.6); Glucose 91 mg/dL (65-115); Magnesium 1.8 mg/dL (1.7-2.3); Osmolality Calculated 299 mOsm/kg (285-295); Potassium 3.1 mmol/L (3.5-5.1); Sodium 144 mmol/L (136-145); Total Bilirubin 0.8 mg/dL (0.15-1.2); Total Protein 5.4 g/dL (6.6-8.7)
[2022-01-07] MEDS: FUROsemide 10 mg/mL SDV 4mL 40 MG IVP (08:09)
[2022-01-07] MEDS: rivaroxaban 10 mg Tablet 20 MG PO (08:10)
[2022-01-07] MEDS: pantoprazole DR 40 mg Tablet PO (08:10)
[2022-01-07] MEDS: metoprolol tartrate 25 mg Tablet 12.5 MG PO (08:11)
[2022-01-07] MEDS: potassium chloride ER 20 mEq Tablet 40 MEQ PO ×2 (08:25→11:27)
--- NOTE | 2022-01-07 11:13 | P.PN_ITS ---
Subjective Subjective: The patient is feeling okay. She has been tolerating the metoprolol 12.5 mg p.o. twice daily without any bradycardia. No recurrence of atrial fibrillation. Denies any chest pain or shortness of breath. No other specific complaints. Medications: Medication Review Details: Current Medications Acetaminophen (Acetaminophen 325 Mg Tablet) 650 mg PO Q6H PRN PRN Reason: Mild/Mod Pain Or Temp >/= 101 Hydrocodone Bitart/Acetaminophen (Hydrocodone-Acetaminophen 10-325 Mg Tablet) 1 tab PO Q6H PRN PRN Reason: Pain Last Admin: 01/07/22 04:32 Dose: 1 tab Documented by: Furosemide (Furosemide 10 Mg/Ml Sdv 4ml) 40 mg IVP Q24H [facility] Last Admin: 01/07/22 08:09 Dose: 40 mg Documented by: Metoprolol Tartrate (Metoprolol Tartrate 25 Mg Tablet) 12.5 mg PO BID@0900,2100 [facility] Last Admin: 01/07/22 08:11 Dose: 12.5 mg Documented by: Non-Formulary Medication (Dofetilide) 125 mcg PO BID [facility] Ondansetron HCl (Ondansetron 2 Mg/Ml Sdv 2 Ml) 4 mg IVP Q8H PRN PRN Reason: vomiting, or N/V if npo Pantoprazole Sodium (Pantoprazole Dr 40 Mg Tablet) 40 mg PO DAILY [facility] Last Admin: 01/07/22 08:10 Dose: 40 mg Documented by: Potassium Chloride (Potassium Chloride Er 20 Meq Tablet) 40 meq PO DAILY [facility] Last Admin: 01/07/22 08:25 Dose: 40 meq Documented by: Rivaroxaban (Rivaroxaban 10 Mg Tablet) 20 mg PO DAILY [facility] Last Admin: 01/07/22 08:10 Dose: 20 mg Documented by: Vitals/I&O/Wt Last Vital Signs Temp 98.0 F 01/07/22 04:00 Pulse 56 L 01/07/22 08:00 Resp 24 H 01/07/22 08:00 BP 102/53 01/07/22 08:00 Pulse Ox 93 01/07/22 08:00 01/06/22 01/07/22 01/07/22 22:59 06:59 14:59 Intake Total 470 / 1570 240 / 1810 200 / 200 Output Total 600 / 1900 450 / 2350 Balance -130 / -330 -210 / -540 200 / 200 Weight last 48 hrs Weight 243 lb 5 oz Weight 243 lb 3 oz Weight 243 lb Weight 240 lb Physical Exam Narrative: GENERAL: The patient is alert and oriented times three. Not in any acute distress. HEENT: No significant pallor, icterus or lymphadenopathy.Oral cavity: There are no mucous membrane lesions. NECK: Trachea appears to be central. No masses noted. No JVD or thyromegaly appreciated. RESPIRATORY: Chest is symmetrical. No intercostals muscle retraction or any accessory muscle activation. There is no chest wall tenderness. Breath sounds are heard bilaterally. No rales or rhonchi heard. No evidence of any consolidation. BREASTS: Deferred. HEART: The heart sounds are normal. No S3 or S4. No significant murmurs. No pericardial rub ABDOMEN: No vessel pulsations or distention. No tenderness. No organomegaly appreciated. Bowel sounds are normally heard. : Deferred. RECTAL: Deferred. LYMPHATIC: No lymphadenopathy noted in the neck. EXTREMITIES: No edema or cyanosis. No clubbing. MUSCULOSKELETAL: No acute joint deformities or swelling SKIN: There are no significant rashes or ecchymosis NEUROPSYCHIATRIC: The patient is alert and oriented x3. Appears to be in a good mood. No tremors or rigidity noted. Data : 01/07/22 05:30 01/07/22 05:30 Other Labs: The echocardiogram from 01/06/2022 Contrast echocardiogram was used to delineate the LV borders. ? ?Normal LV size ejection fraction of 62%.? No gross wall motion ?abnormalities. ?The right ventricle appears to be mildly dilated with slightly ?diminished ejection fraction ?There is no pericardial effusion. ?There are no intracardiac masses. ?Technically difficult study A&P Assessment and plan (1) Atrial fibrillation with rapid ventricular response: Extremities continue on the metoprolol 12.5 twice daily and dofetilide 125 mg p.o. twice daily. Status: Acute (2) Hypokalemia: This needs to be corrected. The potassium today is 3.1 Status: Acute (3) History of syncope: Etiology not clear. Patient may benefit from an event monitor at the time of discharge. Status: Acute (4) T2DM (type 2 diabetes mellitus): Management as per the primary attending. Status: Acute Plan Potassium chloride 40 mEq p.o. now band 40 mQ IV If she continues remain stable, may be discharged home from a cardiac standpoint. Need to be seen by nurse practitioner next week in the office. Event monitor as an outpatient-for 30 days Continue on the metoprolol 12.5 mg p.o. twice daily and the dofetilide 125 mg p.o. twice daily Attestations Medical Necessity Statement*: Disposition as per the primary Coding Level of Care Code Acute Staffing Administrator for Emely Fwd History Expanded Problem Focused Exam Expanded Problem Focused Medical Decision Making Moderate Complexity Diagnoses Atrial fibrillation with rapid ventricular response I48.91 Hypokalemia E87.6 History of syncope Z87.898 T2DM (type 2 diabetes mellitus) E11.9
--- NOTE | 2022-01-07 11:13 | PM.DCS ---
Discharge Providers Date of Admission: 01/06/22 00:37 Date of Discharge: January 07, 2022 Attending Provider at Admission: Ezra Chaudhari Attending Provider at Discharge: Naeem Hale MD Diagnoses at Discharge Discharge Diagnosis (1) Atrial fibrillation with rapid ventricular response: Status: Acute (2) Hypokalemia: Status: Acute (3) History of syncope: Status: Acute (4) T2DM (type 2 diabetes mellitus): Status: Acute Reason for Visit Reason for Visit: afib Hospital Course Hospital Course 71-year-old female with past medical history of hypertension COPD On 3LS home oxygen atrial fibrillation on Xarelto, heart failure ( mildly dilated R.V with slightly diminished ejection fraction ) was brought in with chief complaint of upper abdominal discomfort, fullness, lower extremity swelling, and palpitations. Further work-up in the ER Found her to be in A. fib with RVR, she was admitted for the management of same. She received metoprolol IV, PO IV digoxin in the ER, hypokalemia correction was taken , she converted to Sinus rhythm with bradycardia, later on during the hospital stay she was restarted back on her antiarrhythmic medication dofetilide 125 MCG p.o. twice daily, bisoprolol has been discontinued, she has been started on metoprolol tartrate 12.5 mg p.o. twice daily, she was continued on her home dose of Lasix 40 mg p.o. daily, oral potassium has been added. Given the fact that she has A. fib with now sinus bradycardia, possibility of underlying sick sinus syndrome do exist, or it may be just an acute presentation for now she will follow cardiology as an outpatient, she may need further work-up in future. Overall patient has responded well to above medical management, and is being discharged home in stable condition. Physical Exam Const: COMMON NORMALS: patient oriented x3 HENMT: COMMON NORMALS: normocephalic and atraumatic HEAD & SCALP: normocephalic and atraumatic Resp: COMMON NORMALS: clear to auscultation bilaterally EFFORT & INSPECTION: Yes symmetric chest movement AUSCULTATION: clear to auscultation bilaterally OTHER: Diminished air entry B/L Cardio: COMMON NORMALS: regular rate, regular rhythm, S1 normal heart sound present, S2 normal heart sound present, No gallops present (Cardio), No murmurs present (Cardio), No rub (Cardio) and Peripheral pulses 2+ throughout RATE: regular rate RHYTHM: regular rhythm HEART SOUNDS: S1 normal heart sound present and S2 normal heart sound present PERIPHERAL PULSES: Peripheral pulses 2+ throughout GI: COMMON NORMALS: Normal to inspection, nondistended, normoactive bowel sounds present, Soft to palpation, non-tender, No hepatosplenomegaly present and no masses AUSCULTATION: Yes normoactive bowel sounds PALPATION: Yes Soft to palpation and Yes No hepatosplenomegaly present RECTAL EXAM: deferred Extremity: COMMON NORMALS: no clubbing, cyanosis or edema and no pedal edema Neuro: COMMON NORMALS: patient oriented x3 Discharge Data Studies Completed and Pending Completed Studies During Hospitalization Category Date Time Status CT abdomen pelvis w con* [id number] Urgent Cat Scan 01/05/22 21:07 Completed XR chest 1V portable [id number] Urgent Exams 01/06/22 00:32 Completed CV. echo wo/w contrast [id number] Routine Ultrasound 01/06/22 03:28 Completed Pending at discharge Category Date Time Status Complete Blood Count w/Auto AM LABS Lab 01/08/22 04:00 Ordered Complete Blood Count w/Auto AM LABS Lab 01/09/22 04:00 Ordered Comprehensive Metabolic Panel AM LABS Lab 01/08/22 04:00 Ordered Comprehensive Metabolic Panel AM LABS Lab 01/09/22 04:00 Ordered Magnesium AM LABS Lab 01/08/22 04:00 Ordered Radiology Impressions Abdomen/Pelvis CT 01/05/22 21:07 IMPRESSION: 1. Dilatation of the intra-and extrahepatic biliary tree which can be normal following cholecystectomy. 2. Probable tiny partially calcified right renal rim the/scar most consistent with in utero infarct or other in utero insult. Axial series 3, images 22-29. 3. 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 4. Moderate descending and/or sigmoid colon diverticulosis without diverticulitis. Chest X-Ray 01/06/22 00:32 IMPRESSION: Mild cardiomegaly. Laboratory Results WBC 11.3 10^3/uL (4.0-10.0) H 01/07/22 05:30 RBC 4.32 10^6/uL (4.1-5.3) 01/07/22 05:30 Hgb 13.5 g/dL (11.5-15.3) 01/07/22 05:30 Hct 43.6 % (37.0-47.0) 01/07/22 05:30 MCV 100.9 fl (81-99) H 01/07/22 05:30 MCH 31.3 pg (28.0-34.0) 01/07/22 05:30 MCHC 31.0 g/dL (30.0-36.0) 01/07/22 05:30 RDW 13.2 % (12.1-15.1) 01/07/22 05:30 Plt Count 270 10^3/cmm (130-400) 01/07/22 05:30 MPV 10.5 fL (7.4-10.4) H 01/07/22 05:30 Neut % (Auto) 71.5 % 01/07/22 05:30 Lymph % (Auto) 17.1 % 01/07/22 05:30 [place] % (Auto) 9.5 % 01/07/22 05:30 Eos % (Auto) 1.2 % 01/07/22 05:30 Baso % (Auto) 0.3 % 01/07/22 05:30 Neut # (Auto) 8.04 10^3/uL (1.8-7.7) H 01/07/22 05:30 Lymph # (Auto) 1.9 10^3/uL (0.8-4.8) 01/07/22 05:30 [place] # (Auto) 1.1 10^3/uL (0.2-0.9) H 01/07/22 05:30 Eos # (Auto) 0.1 10^3/uL (0.0-0.8) 01/07/22 05:30 Baso # (Auto) 0.0 10^3/uL (0.0-0.1) 01/07/22 05:30 Nucleated RBC % (auto) 0 % 01/07/22 05:30 Nucleated RBCs # 0.0 /100WBC 01/07/22 05:30 Sodium 144 mmol/L (136-145) 01/07/22 05:30 Potassium 3.1 mmol/L (3.5-5.1) L 01/07/22 05:30 Chloride 100 mmol/L (98-107) 01/07/22 05:30 Carbon Dioxide 37 mmol/L (22-29) H 01/07/22 05:30 Anion Gap 10.1 (5-19) 01/07/22 05:30 BUN 16 mg/dL (8-23) 01/07/22 05:30 Creatinine 1.1 mg/dL (0.5-0.9) H 01/07/22 05:30 GFR Calculation Not Reportable 01/07/22 05:30 Glucose 91 mg/dL (65-115) 01/07/22 05:30 Estimat Average Glucose 154 01/05/22 21:10 Hemoglobin A1c 7.0 % (4.0-6.0) H 01/05/22 21:10 Calculated Osmolality 299 mOsm/kg (285-295) H 01/07/22 05:30 Lactate 1.5 mmol/L (0.5-2.2) 01/05/22 21:10 Calcium 9.3 mg/dL (8.5-10.5) 01/07/22 05:30 Magnesium 1.8 mg/dL (1.7-2.3) 01/07/22 05:30 Total Bilirubin 0.8 mg/dL (0.15-1.2) 01/07/22 05:30 AST 17 U/L (0-32) 01/07/22 05:30 ALT 10 U/L (0-33) 01/07/22 05:30 Alkaline Phosphatase 61 IU/L (35-105) 01/07/22 05:30 Troponin T Baseline 41 ng/L (0-10) H 01/05/22 21:10 Troponin T 120 Minute 33.67 ng/L (0-10) H 01/05/22 23:10 Delta Troponin T -7.33 ABS# (0-10) L 01/05/22 23:10 Troponin T Hi Sens 6Hr 43.93 ng/L (0-10) H 01/06/22 03:51 Troponin T Hi Sens 6Hr Delta 2.93 ng/L (0-12) 01/06/22 03:51 NT-Pro-B Natriuret Pep 1844 pg/mL (0-125) H 01/05/22 21:10 Total Protein 5.4 g/dL (6.6-8.7) L 01/07/22 05:30 Albumin 3.5 g/dL (3.5-5.2) 01/07/22 05:30 Globulin 1.9 g/dL (1.3-4.6) 01/07/22 05:30 Lipase 25 U/L (13-60) 01/05/22 21:10 TSH 0.85 uIU/mL (0.27-4.20) 01/06/22 03:51 Urine Color Yellow (Yellow) 01/06/22 00:45 Urine Appearance Clear (CLEAR) 01/06/22 00:45 Urine pH 5 (5-7) 01/06/22 00:45 Ur Specific [place] 1.010 (1.005-1.030) 01/06/22 00:45 Urine Protein Neg (Negative) 01/06/22 00:45 Urine Glucose (UA) Norm (Normal) 01/06/22 00:45 Urine Ketones Negative (Negative) 01/06/22 00:45 Urine Blood Neg (Negative) 01/06/22 00:45 Urine Nitrate Negative (Negative) 01/06/22 00:45 Urine Bilirubin Neg (Negative) 01/06/22 00:45 Urine Urobilinogen Norm mg/dL (Negative) 01/06/22 00:45 Ur Leukocyte Esterase Negative (Negative) 01/06/22 00:45 Vitals Last Vital Signs Temp 98.0 F 01/07/22 04:00 Pulse 56 L 01/07/22 08:00 Resp 24 H 01/07/22 08:00 BP 102/53 01/07/22 08:00 Pulse Ox 93 01/07/22 08:00 Discharge Plan Discharge Patient Disposition: Home Condition: Stable Prescriptions: [place]-Con M20 20 mEq Tablet,Er Particles/Crystals 40 meq PO DAILY 30 Days Qty: 30 0RF metoprolol tartrate 25 mg Tablet 12.5 mg PO BID@0900,2100 30 Days Qty: 60 3RF Continued dofetilide 125 mcg capsule 125 mcg PO BID 0RF rosuvastatin 20 mg Tablet 20 mg PO DAILY 0RF Lasix 40 mg Tablet 40 mg PO DAILY 0RF zolpidem 10 mg Tablet, Sublingual 10 mg SUBLINGUAL BEDTIME 0RF alprazolam 1 mg Tablet 1 mg PO BID 0RF montelukast 10 mg Tablet 1 mg PO BEDTIME 0RF hydrocodone-acetaminophen 10-325 mg Tablet 1 tab PO Q6H PRN (Reason: Pain) 0RF Xarelto tablet 15 mg PO DAILY 0RF Discontinued bisoprolol-hydrochlorothiazide 5 mg PO DAILY 0RF prednisone 10 mg tablet 10 mg PO DAILY 0RF Discharge Orders: Discharge Order (Routine); Ordered 01/07/22 Ordered By: Naeem Hale Referrals: Massiel Cabezas MD [Physician] - 1 month (Please call Dr. Cabezas's Office on Sunday at [phone] to schedule a follow up appointment for 1 month. Thank you. ) Discharge Diet: Cardiac Discharge Activity: Resume usual activity Patient Instructions: Metoprolol (By mouth) (Lopressor, Toprol XL), Potassium Chloride (By mouth) (K-Dur, K-Karla, K-Tab, Jay Mur), Abdominal Pain (ED), Opioid Safety Discharge Attestations Time Spent in Discharge Care*: greater than 30 min Quality Metrics Clinical Quality Measures [ No reported AMI, CVA or VTE this stay] Coding Level of Care Code Acute Chg FW DC note Exam Detailed Diagnoses Atrial fibrillation with rapid ventricular response I48.91 Hypokalemia E87.6 History of syncope Z87.898 T2DM (type 2 diabetes mellitus) E11.9
== END 2022-01-07 13:51 | disposition home or self-care (01) | DRG 309 ==
LOC: ER 01-06 00:36 → ICU 01-06 01:46
PROVIDERS: Emergency Medicine; Admitting Provider Internal Medicine; Emergency Provider Emergency Medicine; Visit Provider Internal Medicine
DX: I48.91 Unspecified atrial fibrillation (principal); N17.9 Acute kidney failure, unspecified; E87.6 Hypokalemia; J44.9 Chronic obstructive pulmonary disease, unspecified; I10 Essential (primary) hypertension; E11.9 Type 2 diabetes mellitus without complications; E86.0 Dehydration; I51.7 Cardiomegaly; R10.10 Upper abdominal pain, unspecified; R55 Syncope and collapse; R51.9 Headache, unspecified; K57.30 Diverticulosis of large intestine without perforation or abscess without bleeding; N28.81 Hypertrophy of kidney; F17.200 Nicotine dependence, unspecified, uncomplicated; Z99.81 Dependence on supplemental oxygen; Z79.01 Long term (current) use of anticoagulants; Z90.49 Acquired absence of other specified parts of digestive tract
CPT/HCPCS: 36415; 71045; 74177; 80053; 81003; 83036; 83605; 83690; 83735; 83880; 84443; 84484; 85025; 93005; 93306; 94760; 96361; 96374; 96375; 96376; 99285; C8929; J1160; J1940; J3490; J7040; Q9956; Q9967

== ENCOUNTER 2022-01-22 17:18 | Inpatient (IN) | payer MEDICARE, BC, SELFPAY ==
[2022-01-22] VITALS (49 sets, daily range): BP systolic 84–128; BP diastolic 50–88; PULSE 70–174; RESP 10–34; TEMP 36.1–37.6; O2SAT 88–98; BMI 38.7; BMI 37.1
--- NOTE | 2022-01-22 17:39 | ECG_ITS ---
[facility] Test Date: 2022-01-22 Pat Name: Rebeca Álvarez Department: Room: Gender: Female Entry Specialists: : [id number] Requested By: Torres Dupont Order Number: [id number] Mohamud MD: Massiel Cabezas M.D. Measurements Intervals [place] Rate: 139 P: DC: QRS: 24 QRSD: 84 T: 18 QT: 317 QTc: 483 Interpretive Statements ATRIAL FIBRILLATION WITH RAPID VENTRICULAR RESPONSE POSSIBLE ANTERIOR MYOCARDIAL INFARCTION , PROBABLY OLD [30 ms Q WAVE IN V3/V4, OR R < 0.2 mV IN V4] ABNORMAL RHYTHM ECG INTERPRETATION BASED ON A DEFAULT AGE OF 40 YEARS Compared to ECG 01/06/2022 09:59:01 Myocardial infarct finding now present Sinus bradycardia no longer present T-wave abnormality no longer present Possible ischemia no longer present Electronically Signed On 01-22-2022 19:07:44 CDT by Massiel Cabezas M.D. [email or web address]
--- NOTE | 2022-01-22 17:44 | XRR_ITS ---
PROCEDURE INFORMATION: Exam: XR Chest Exam date and time: 01/22/2022 5:51 PM Age: 71 years old Clinical indication: Cough and dyspnea; Additional info: Dyspnea/cough TECHNIQUE: Imaging protocol: Radiologic exam of the chest. Views: 1 view. COMPARISON: CR (CHEST, ) 01/06/2022 12:40 AM FINDINGS: Lungs: Mild left lower lobe atelectasis versus pneumonia. Pleural spaces: No pleural effusion. No pneumothorax. Heart/Mediastinum: Stable marked enlargement of the cardiac silhouette. Mediastinal contours are unremarkable. Vasculature: Stable vascular calcifications in the aorta. Bones/joints: Unremarkable for age. Soft tissues: Surgical clips in the right axilla are stable. XR/XR chest 1V portable [id number] IMPRESSION: 1. Mild left lower lobe atelectasis versus pneumonia. Recommend clinical correlation. Recommend followup chest imaging to insure resolution of these findings. 2. Incidental/nonacute findings are listed in the report.
--- NOTE | 2022-01-22 17:46 | W.ED.ARRPALP ---
Documented by User: Torres Chairez DO 02/04/22 09:51 HPI - Arrhythmia/Palpitations General: Chief Complaint: Arrhythmia/Palpitations Stated Complaint: AFIB Time Seen by Provider: 01/22/22 17:59 Source: patient Mode of arrival: ambulatory Limitations: no limitations History of Present Illness: 70-year-old female presents emergency room complaining of rapid heart rate and irregular heart rate. She has a known history of atrial fibrillation she recently was changed from bisoprolol to metoprolol XL she is taking 12 and half milligrams twice daily. MD complaint: rapid heart beat and atrial fibrillation Onset (ago): hour(s) Duration: constant Severity: moderate Context: occurred during rest Arrhythmia history: atrial fibrillation Associated symptoms: Reports short of breath; Deny anxiety, cough, diaphoresis, muscle cramps, nausea, paresthesias, pre-syncope, sense of impending doom, syncope or vomiting Treatments prior to arrival: beta-huan Review of Systems Const: Denies: fever(s), chills, fatigue, malaise or diaphoresis ENMT: Denies: throat pain, ear or mastoid pain, nasal discharge or nasal congestion Card: Denies: chest pain, palpitations, syncope or pre-syncope Resp: Denies: dyspnea, productive cough or non-productive cough GI: Denies: abdominal pain, nausea or vomiting : Denies: flank pain, difficulty voiding, dysuria, urinary frequency or urinary urgency Musc: Denies: muscle cramps Skin/Breast: Denies: rash or pruritus Psych: Denies: anxiety PFSH ED PFSH: Medical History Abdominal pain Acute diastolic heart failure Acute kidney injury superimposed on CKD HERBER (acute kidney injury) Atrial fibrillation Atrial fibrillation with rapid ventricular response Atrial fibrillation with RVR Chronic anticoagulation Chronic kidney disease COPD (chronic obstructive pulmonary disease) Dehydration Fatigue Generalized weakness History of syncope HTN (hypertension) with goal to be determined Hypokalemia Right heart failure T2DM (type 2 diabetes mellitus) Volume overload Surgical History Hx of cholecystectomy Social History Smoking and tobacco status: current every day smoker Alcohol intake: never Marital status: / Physical Exam Const: GENERAL APPEARANCE: cooperative and comfortable ORIENTATION/CONSCIOUSNESS: Yes awake, Yes oriented to person, Yes oriented to place and Yes oriented to time HENMT: COMMON NORMALS: normocephalic, atraumatic and hearing grossly normal bilaterally HEAD & SCALP: normocephalic and atraumatic Resp: COMMON NORMALS: normal respiratory effort, No retractions, No use of accessory muscles and clear to auscultation bilaterally AUSCULTATION: clear to auscultation bilaterally Cardio: COMMON NORMALS: regular rate, regular rhythm and No murmurs present (Cardio) RATE: regular rate RHYTHM: regular rhythm GI: COMMON NORMALS: Soft to palpation and No hepatosplenomegaly present AUSCULTATION: Yes normoactive bowel sounds PALPATION: Yes Soft to palpation, No Tenderness to palpation present (GI), No Guarding due to palpation present (GI) and Yes No hepatosplenomegaly present Extremity: COMMON NORMALS: normal to inspection, capillary refill normal, no clubbing, cyanosis or edema, no calf tenderness and no pedal edema Neuro: SENSORIUM/ORIENTATION: Yes oriented to person, Yes oriented to place and Yes oriented to time Skin: COMMON NORMALS: no rashes or lesions noted GENERAL SKIN EXAM: no rashes or lesions noted Course Vital Signs: Vital signs: Vital Signs Temperature 98.2 F 01/25/22 13:37 Pulse Rate 57 L 01/25/22 13:37 Respiratory Rate 18 01/25/22 13:37 Blood Pressure 134/75 01/25/22 13:37 Pulse Oximetry 94 01/25/22 13:37 Oxygen Delivery Me thod 01/25/22 07:57 Oxygen Flow Rate 2 01/25/22 07:57 MDM - Arrhythmia/Palpitations Medical Decision Making Care signed out to Dr. Bautista at change of shift. See final notes for diagnosis and disposition. Patient presents here with Ivis alvarenga with RVR patient's on esmolol drip her heart rate has improved it is currently 111 she is still tachycardic spoke to the hospitalist will admit to the ICU on esmolol drip. Medical Records I reviewed the patient's medical records. Lab Data I reviewed the patient's lab results. : 01/24/22 08:30 01/25/22 04:46 Radiology Impressions Chest X-Ray 01/23/22 03:56 IMPRESSION: Right-sided central venous line noted with the distal tip in the region of the lower SVC. Chest CT 01/24/22 07:04 IMPRESSION: 1. Minimal subsegmental atelectasis at the lung bases. 2. No pneumonia or pneumothorax. 3. Mild cardiomegaly. 4. Prior cholecystectomy. Pneumobilia. 5. Centrilobular emphysema. Abdomen/Pelvis CT 01/24/22 13:54 IMPRESSION: 1. No acute findings. 2. Incidental findings above. Laboratory Results WBC 8.4 10^3/uL (4.0-10.0) 01/22/22 17:50 RBC 4.83 10^6/uL (4.1-5.3) 01/22/22 17:50 Hgb 15.1 g/dL (11.5-15.3) 01/22/22 17:50 Hct 48.5 % (37.0-47.0) H 01/22/22 17:50 MCV 100.4 fl (81-99) H 01/22/22 17:50 MCH 31.3 pg (28.0-34.0) 01/22/22 17:50 MCHC 31.1 g/dL (30.0-36.0) 01/22/22 17:50 RDW 13.1 % (12.1-15.1) 01/22/22 17:50 Plt Count 429 10^3/cmm (130-400) H 01/22/22 17:50 MPV 9.0 fL (7.4-10.4) 01/22/22 17:50 Neut % (Auto) 60.6 % 01/22/22 17:50 Lymph % (Auto) 25.3 % 01/22/22 17:50 [place] % (Auto) 10.8 % 01/22/22 17:50 Eos % (Auto) 2.4 % 01/22/22 17:50 Baso % (Auto) 0.5 % 01/22/22 17:50 Neut # (Auto) 5.07 10^3/uL (1.8-7.7) 01/22/22 17:50 Lymph # (Auto) 2.1 10^3/uL (0.8-4.8) 01/22/22 17:50 [place] # (Auto) 0.9 10^3/uL (0.2-0.9) 01/22/22 17:50 Eos # (Auto) 0.2 10^3/uL (0.0-0.8) 01/22/22 17:50 Baso # (Auto) 0.0 10^3/uL (0.0-0.1) 01/22/22 17:50 Nucleated RBC % (auto) 0 % 01/22/22 17:50 Nucleated RBCs # 0.0 /100WBC 01/22/22 17:50 PT 15.50 SECONDS (12.1-14.9) H 01/22/22 17:50 INR 1.20 (0.8-1.2) 01/22/22 17:50 Sodium 140 mmol/L (136-145) 01/22/22 17:50 Potassium 3.8 mmol/L (3.5-5.1) 01/22/22 17:50 Chloride 100 mmol/L (98-107) 01/22/22 17:50 Carbon Dioxide 29 mmol/L (22-29) 01/22/22 17:50 Anion Gap 14.8 (5-19) 01/22/22 17:50 BUN 13 mg/dL (8-23) 01/22/22 17:50 Creatinine 1.1 mg/dL (0.5-0.9) H 01/22/22 17:50 GFR Calculation Not Reportable 01/22/22 17:50 Glucose 124 mg/dL (65-115) H 01/22/22 17:50 Calculated Osmolality 292 mOsm/kg (285-295) 01/22/22 17:50 Lactic Acid 1.6 mmol/L (0.5-2.2) 01/22/22 17:50 Calcium 10.2 mg/dL (8.5-10.5) 01/22/22 17:50 Magnesium 1.6 mg/dL (1.7-2.3) L 01/22/22 19:40 Total Bilirubin 0.4 mg/dL (0.15-1.2) 01/22/22 17:50 AST 25 U/L (0-32) 01/22/22 17:50 ALT 10 U/L (0-33) 01/22/22 17:50 Alkaline Phosphatase 75 IU/L (35-105) 01/22/22 17:50 Troponin T Baseline 48 ng/L (0-10) H 01/22/22 17:50 Troponin T 120 Minute 40.69 ng/L (0-10) H 01/22/22 19:40 Delta Troponin T -7.31 ABS# (0-10) L 01/22/22 19:40 Total Protein 6.4 g/dL (6.6-8.7) L 01/22/22 17:50 Albumin 3.6 g/dL (3.5-5.2) 01/22/22 17:50 Globulin 2.8 g/dL (1.3-4.6) 01/22/22 17:50 Procalcitonin 0.05 ng/mL (0-0.5) 01/22/22 19:40 TSH 0.77 uIU/mL (0.27-4.20) 01/22/22 19:40 TSH Cancelled 01/22/22 19:40 EKG Data EKG 1: Other EKG comments: Chest X-Ray 01/23/22 03:56 IMPRESSION: Right-sided central venous line noted with the distal tip in the region of the lower SVC. Chest CT 01/24/22 07:04 IMPRESSION: 1. Minimal subsegmental atelectasis at the lung bases. 2. No pneumonia or pneumothorax. 3. Mild cardiomegaly. 4. Prior cholecystectomy. Pneumobilia. 5. Centrilobular emphysema. Abdomen/Pelvis CT 01/24/22 13:54 IMPRESSION: 1. No acute findings. 2. Incidental findings above. Discharge Plan Discharge Patient Disposition: Admitted As Inpatient Admit Provider: Jennie Mata Clinical Impression: Atrial fibrillation with rapid ventricular response Condition: Stable Discharge Diet: Regular Discharge Activity: Resume usual activity and Increase activity as tolerated Coding Level of Care Code ED Obstetrics And Gynecology Professor for Chg Fwd Exam Detailed Documented by User: Roya Bautista MD 01/22/22 20:41 HPI - Arrhythmia/Palpitations General: Chief Complaint: Arrhythmia/Palpitations Stated Complaint: AFIB Time Seen by Provider: 01/22/22 17:59 PFSH ED PFSH: Medical History Abdominal pain Acute diastolic heart failure Acute kidney injury superimposed on CKD HERBER (acute kidney injury) Atrial fibrillation Atrial fibrillation with rapid ventricular response Atrial fibrillation with RVR Chronic anticoagulation Chronic kidney disease COPD (chronic obstructive pulmonary disease) Dehydration Fatigue Generalized weakness History of syncope HTN (hypertension) with goal to be determined Hypokalemia Right heart failure T2DM (type 2 diabetes mellitus) Volume overload Surgical History Hx of cholecystectomy Social History Smoking and tobacco status: current every day smoker Alcohol intake: never Marital status: / Course Vital Signs: Vital signs: Vital Signs Temperature 98.2 F 01/25/22 13:37 Pulse Rate 57 L 01/25/22 13:37 Respiratory Rate 18 01/25/22 13:37 Blood Pressure 134/75 01/25/22 13:37 Pulse Oximetry 94 01/25/22 13:37 Oxygen Delivery Me thod 01/25/22 07:57 Oxygen Flow Rate 2 01/25/22 07:57 MDM - Arrhythmia/Palpitations Medical Decision Making Patient presents here with Ivis alvarenga with RVR patient's on esmolol drip her heart rate has improved it is currently 111 she is still tachycardic spoke to the hospitalist will admit to the ICU on esmolol drip. Lab Data : 01/24/22 08:30 01/25/22 04:46 Radiology Impressions Chest X-Ray 01/23/22 03:56 IMPRESSION: Right-sided central venous line noted with the distal tip in the region of the lower SVC. Chest CT 01/24/22 07:04 IMPRESSION: 1. Minimal subsegmental atelectasis at the lung bases. 2. No pneumonia or pneumothorax. 3. Mild cardiomegaly. 4. Prior cholecystectomy. Pneumobilia. 5. Centrilobular emphysema. Abdomen/Pelvis CT 01/24/22 13:54 IMPRESSION: 1. No acute findings. 2. Incidental findings above. Laboratory Results WBC 8.4 10^3/uL (4.0-10.0) 01/22/22 17:50 RBC 4.83 10^6/uL (4.1-5.3) 01/22/22 17:50 Hgb 15.1 g/dL (11.5-15.3) 01/22/22 17:50 Hct 48.5 % (37.0-47.0) H 01/22/22 17:50 MCV 100.4 fl (81-99) H 01/22/22 17:50 MCH 31.3 pg (28.0-34.0) 01/22/22 17:50 MCHC 31.1 g/dL (30.0-36.0) 01/22/22 17:50 RDW 13.1 % (12.1-15.1) 01/22/22 17:50 Plt Count 429 10^3/cmm (130-400) H 01/22/22 17:50 MPV 9.0 fL (7.4-10.4) 01/22/22 17:50 Neut % (Auto) 60.6 % 01/22/22 17:50 Lymph % (Auto) 25.3 % 01/22/22 17:50 [place] % (Auto) 10.8 % 01/22/22 17:50 Eos % (Auto) 2.4 % 01/22/22 17:50 Baso % (Auto) 0.5 % 01/22/22 17:50 Neut # (Auto) 5.07 10^3/uL (1.8-7.7) 01/22/22 17:50 Lymph # (Auto) 2.1 10^3/uL (0.8-4.8) 01/22/22 17:50 [place] # (Auto) 0.9 10^3/uL (0.2-0.9) 01/22/22 17:50 Eos # (Auto) 0.2 10^3/uL (0.0-0.8) 01/22/22 17:50 Baso # (Auto) 0.0 10^3/uL (0.0-0.1) 01/22/22 17:50 Nucleated RBC % (auto) 0 % 01/22/22 17:50 Nucleated RBCs # 0.0 /100WBC 01/22/22 17:50 PT 15.50 SECONDS (12.1-14.9) H 01/22/22 17:50 INR 1.20 (0.8-1.2) 01/22/22 17:50 Sodium 140 mmol/L (136-145) 01/22/22 17:50 Potassium 3.8 mmol/L (3.5-5.1) 01/22/22 17:50 Chloride 100 mmol/L (98-107) 01/22/22 17:50 Carbon Dioxide 29 mmol/L (22-29) 01/22/22 17:50 Anion Gap 14.8 (5-19) 01/22/22 17:50 BUN 13 mg/dL (8-23) 01/22/22 17:50 Creatinine 1.1 mg/dL (0.5-0.9) H 01/22/22 17:50 GFR Calculation Not Reportable 01/22/22 17:50 Glucose 124 mg/dL (65-115) H 01/22/22 17:50 Calculated Osmolality 292 mOsm/kg (285-295) 01/22/22 17:50 Lactic Acid 1.6 mmol/L (0.5-2.2) 01/22/22 17:50 Calcium 10.2 mg/dL (8.5-10.5) 01/22/22 17:50 Magnesium 1.6 mg/dL (1.7-2.3) L 01/22/22 19:40 Total Bilirubin 0.4 mg/dL (0.15-1.2) 01/22/22 17:50 AST 25 U/L (0-32) 01/22/22 17:50 ALT 10 U/L (0-33) 01/22/22 17:50 Alkaline Phosphatase 75 IU/L (35-105) 01/22/22 17:50 Troponin T Baseline 48 ng/L (0-10) H 01/22/22 17:50 Troponin T 120 Minute 40.69 ng/L (0-10) H 01/22/22 19:40 Delta Troponin T -7.31 ABS# (0-10) L 01/22/22 19:40 Total Protein 6.4 g/dL (6.6-8.7) L 01/22/22 17:50 Albumin 3.6 g/dL (3.5-5.2) 01/22/22 17:50 Globulin 2.8 g/dL (1.3-4.6) 01/22/22 17:50 Procalcitonin 0.05 ng/mL (0-0.5) 01/22/22 19:40 TSH 0.77 uIU/mL (0.27-4.20) 01/22/22 19:40 TSH Cancelled 01/22/22 19:40 EKG Data EKG 1: I personally reviewed and interpreted this EKG as follows: EKG interpretation date: 01/22/22 EKG interpretation time: 17:43 Interpretation: afib rvr hr [address] or t wave abnormalities qrs 84 qtc 398 Other EKG comments: Chest X-Ray 01/23/22 03:56 IMPRESSION: Right-sided central venous line noted with the distal tip in the region of the lower SVC. Chest CT 01/24/22 07:04 IMPRESSION: 1. Minimal subsegmental atelectasis at the lung bases. 2. No pneumonia or pneumothorax. 3. Mild cardiomegaly. 4. Prior cholecystectomy. Pneumobilia. 5. Centrilobular emphysema. Abdomen/Pelvis CT 01/24/22 13:54 IMPRESSION: 1. No acute findings. 2. Incidental findings above. Critical Care Time Critical Care Time: Critical Care Time: Yes Total Critical Care Time: 43 Attestation: The high probability of a clinically significant, sudden or life threatening deterioration of the patient's cv system(s) required my full and direct attention, intervention and personal management. The critical care time is as shown. This time is in addition to time spent performing any reported procedures but includes the following: [x] Data and vital sign review and interpretation [x] Patient assessment, examination and intervention [x] Documentation [x] Medication orders and management Discharge Plan Discharge Patient Disposition: Admitted As Inpatient Admit Provider: Jennie Mata Clinical Impression: Atrial fibrillation with rapid ventricular response Condition: Stable Discharge Diet: Regular Discharge Activity: Resume usual activity and Increase activity as tolerated Coding Level of Care Code ED Obstetrics And Gynecology Professor for Chg Fwd Exam Detailed
--- NOTE | 2022-01-22 17:53 | PC.NURSE ---
Pt reports having trouble with her AFIB since around noon. Denies missed doses of medication. Reports epigastric chest pain, denies dyspnea or lightheadness. A&Ox4, speech clear, lungs clear bilat, skin pink/warm/dry
[2022-01-22] MEDS: metoprolol succinate ER (24 HR) 25 mg Tablet PO (18:00)
[2022-01-22 18:02] LABS: Basophils % 0.5 %; Eosinophils # 0.2 10^3/uL (0.0-0.8); Eosinophils % 2.4 %; Hematocrit 48.5 % (37.0-47.0); Hemoglobin 15.1 g/dL (11.5-15.3); Lymphocytes # 2.1 10^3/uL (0.8-4.8); Lymphocytes % 25.3 %; Mean Corpuscular HGB Conc 31.1 g/dL (30.0-36.0); Mean Corpuscular Hemoglobin 31.3 pg (28.0-34.0); Mean Corpuscular Volume 100.4 fl (81-99); Monocytes # 0.9 10^3/uL (0.2-0.9); Monocytes % 10.8 %; Neutrophils # 5.07 10^3/uL (1.8-7.7); Neutrophils % 60.6 %; Nucleated Red Blood Cells % 0 %; Platelet Count 429 10^3/cmm (130-400); Red Blood Count 4.83 10^6/uL (4.1-5.3); Red Cell Distribution Width 13.1 % (12.1-15.1); White Blood Count 8.4 10^3/uL (4.0-10.0)
[2022-01-22] MEDS: esmolol drip 2,500 MG/250 ML PREMIX 32.66 MG IV ×2 (18:12→18:38)
[2022-01-22 18:30] LABS: Troponin(5th) Baseline 48 ng/L (0-10)
[2022-01-22 18:39] LABS: Alanine Aminotransferase 10 U/L (0-33); Albumin Level 3.6 g/dL (3.5-5.2); Alkaline Phosphatase 75 IU/L (35-105); Anion Gap 14.8 (5-19); Aspartate Amino Transferase 25 U/L (0-32); Blood Urea Nitrogen 13 mg/dL (8-23); Calcium 10.2 mg/dL (8.5-10.5); Carbon Dioxide 29 mmol/L (22-29); Chloride 100 mmol/L (98-107); Globulin 2.8 g/dL (1.3-4.6); Glucose 124 mg/dL (65-115); Osmolality Calculated 292 mOsm/kg (285-295); Potassium 3.8 mmol/L (3.5-5.1); Sodium 140 mmol/L (136-145); Thyroid Stimulating Hormone 0.93 uIU/mL (0.27-4.20); Total Bilirubin 0.4 mg/dL (0.15-1.2); Total Protein 6.4 g/dL (6.6-8.7)
[2022-01-22] MEDS: sodium chloride 0.9% 500 ML 999 ML IV (18:50)
--- NOTE | 2022-01-22 19:11 | PC.NURSE ---
shift report given to Eamon
--- NOTE | 2022-01-22 19:12 | PC.NURSE ---
Physician notified of metoprolol given an hour ago and esmolol gtt is at max dose per protocol. Physician verbalized and states due to pt current blood pressure, no additional medications will be ordered at this time. Primary nurse and charge nurse notified.
[2022-01-22 20:09] LABS: Troponin 5 2HR 40.69 ng/L (0-10)
[2022-01-22 20:10] LABS: Troponin 5 2HR Delta -7.31 ABS# (0-10)
[2022-01-22] MEDS: dilTIAZem 5 mg/mL SDV 5 mL 10 MG IVP (20:45)
--- NOTE | 2022-01-22 20:54 | P.HP_ITS ---
Providers/Chief Complaint Chief Complaint: possible AFIB History of Present Illness Rebeca Álvarez is a 71 year old female with past medical history of atrial fibrillation with RVR, COPD, hypertension, type 2 diabetes mellitus who presented to the hospital today for palpitations. She states that she has a pulse oximeter at home and always knows when she is in A. fib. She has been not icing her heart rate jumping up to [birth year]08[birth year]1929 range and then coming back down. She states for the last 1 week she has been having atrial fibrillation and intermittently going back into sinus rhythm. She has been taking her Xarelto, Tikosyn, metoprolol on time without missing any doses. She states that about 6 weeks ago she was in [place] and treated for pneumonia. She states the pneumonia that she had was a particular kind were currently treated with IV medication according to the bacteria that she had. She is unsure of details. We will request records. She says since then nobody has done a sputum culture we will further imaging to see if she is better. Since the last 3 days she has been noticing increased sputum production and change in color in the sputum. Now it is yellow in color and normally is clear. She is a daily smoker. When she was discharged home the previous hospital she was also given a prednisone taper. At this point she also states that she has been experiencing increased lower extremity edema bilaterally and mild increased shortness of breath compared to baseline. She is on 3 L of nasal cannula at home on a regular basis. ED course: 107/60, respiratory 20, heart rate 130s, temperature 97, on presentation to clinic on arrival to hospital. Now she is on 4 L. Chest x-ray showed mild left lower lobe atelectasis versus pneumonia. Recommend clinical c orrelation. Patient given 20 Cardizem x1, metoprolol 25x1, placed on esmolol drip. Discussed with Dr. Cabezas over the phone. He recommends to keep Tikosyn twice daily, continued on metoprolol low-dose. Medications/Allergies Home Medications Medication Instructions Recorded Confirmed Last Taken Type alprazolam 1 mg tablet 1 mg PO BID 01/06/22 01/22/22 01/22/22 History dofetilide 125 mcg capsule 125 mcg PO BID 01/06/22 01/22/22 01/22/22 History furosemide 40 mg tablet (Lasix) 40 mg PO BID 01/06/22 01/22/22 01/22/22 History hydrocodone 10 mg-acetaminophen 1 tab PO Q6H PRN Pain 01/06/22 01/22/22 01/22/22 History 325 mg tablet montelukast 10 mg tablet 1 mg PO BEDTIME 01/06/22 01/22/22 01/21/22 History rivaroxaban 15 mg tablet (Xarelto) 15 mg PO DAILY ##0 01/06/22 01/22/22 01/21/22 History rosuvastatin 20 mg tablet 20 mg PO DAILY 01/06/22 01/22/22 01/21/22 History metoprolol tartrate 25 mg tablet 12.5 mg PO BID@0900,2100 30 days 01/07/22 01/22/22 01/22/22 Rx #60 tabs potassium chloride 20 mEq 40 meq PO DAILY 30 days #30 tabs 01/07/22 01/22/22 01/22/22 Rx tablet,extended release(part/cryst) (Klor-Con M) zolpidem 10 mg tablet 10 mg PO BEDTIME 01/22/22 01/22/22 01/21/22 History Allergies Allergy/AdvReac Type Severity Reaction Status Date / Time morphine Allergy Unknown Verified 01/06/22 08:19 Penicillins Allergy Unknown Verified 01/06/22 08:19 PFSH Acute PFSH: Medical History (Updated 01/22/22 @ 21:29 by Jennie Mata MD) Abdominal pain HERBER (acute kidney injury) Atrial fibrillation Atrial fibrillation Atrial fibrillation with rapid ventricular response COPD (chronic obstructive pulmonary disease) Dehydration History of syncope HTN (hypertension) with goal to be determined Hypokalemia T2DM (type 2 diabetes mellitus) Volume overload Surgical History Hx of cholecystectomy Social History Smoking and tobacco status: current every day smoker Alcohol intake: never Marital status: / Vitals/I&O/Wt Last Vital Signs Temp 97.0 F L 01/22/22 17:22 Pulse 124 H 01/22/22 19:00 Resp 13 01/22/22 19:00 BP 107/88 01/22/22 19:00 Pulse Ox 96 01/22/22 18:00 O2 Del Method 01/22/22 17:46 O2 Flow Rate 3 01/22/22 17:46 01/22/22 01/22/22 01/22/22 06:59 14:59 22:59 Intake Total 30.483 / 30.483 Balance 30.483 / 30.483 Weight last 48 hrs Weight 108.862 kg Physical Exam Narrative: General: Alert oriented x3, patient seen sitting up in bed on 4 L nasal cannula, has glassy toxic appearance HEENT: Normocephalic, atraumatic, EOMI, breathing normally, no acute distress. Cardio: Irregularly irregular, tachycardic normal S1-S2, Respiratory: Diffuse rhonchi throughout lung [place] with bibasilar crackles GI: Abdomen soft, nontender, nondistended, bowel sounds + Behavior: Appropriate and cooperative Extremities: 3+ pitting edema up to knees bilaterally Data : 01/22/22 17:50 01/22/22 17:50 A&P Assessment and plan (1) Right heart failure: Status: Acute (2) T2DM (type 2 diabetes mellitus): Status: Acute (3) COPD (chronic obstructive pulmonary disease): Status: Acute (4) HTN (hypertension) with goal to be determined: Status: Acute (5) Atrial fibrillation with rapid ventricular response: Status: Acute (6) Chronic anticoagulation: Status: Acute Plan #Atrial fibrillation with RVR #Acute on chronic COPD exacerbation #Right-sided heart failure #Hypertension #Type 2 diabetes mellitus #History of recent pneumonia 6 weeks. ? Continue with Tikosyn 125 twice daily. Patient will request family to bring medication from home. It is not on nonformulary here. -Most recent echo from 2 weeks ago. EF normal, mild right-sided dysfunction. -Continue on metoprolol 12.5 BID -Continue on esmolol drip ? Diurese patient. Start Lasix 40 IV twice daily, strict input output ? Solu-Medrol 60.x1 now, prednisone 40 daily and after for 5 days total ? Azithromycin 500 now, 250 daily for next 4 days ? Continue to use supplemental oxygen patient gets back to baseline ? Check sputum gram stain culture ? Repeat chest x-ray in a.m. Patient did have pneumonia 6 weeks ago. She has no white count and is afebrile. ? Check procalcitonin ? Continue Xarelto, rosuvastatin, zolpidem -Insulin sliding scale low-dose. Check hemoglobin A1c ? Request records from [facility]. -All questions answered to patient satisfaction Full code DVT prophylaxis: On Xarelto Attestations Medical Necessity Statement*: Will require greater than 2 midnight stay for management of atrial fibrillation with RVR, COPD exacerbation, CHF exacerbation Coding Level of Care Code Acute Cardiopulmonary Specialist for Chg Fwd Diagnoses Right heart failure I50.810 T2DM (type 2 diabetes mellitus) E11.9 COPD (chronic obstructive pulmonary disease) J44.9 HTN (hypertension) with goal to be determined I10 Atrial fibrillation with rapid ventricular response I48.91 Chronic anticoagulation Z79.01
[2022-01-22 21:34] LABS: Lactic Sepsis W/Reflex 1.6 mmol/L (0.5-2.2)
[2022-01-22 21:44] LABS: Procalcitonin 0.05 ng/mL (0-0.5); Thyroid Stimulating Hormone 0.77 uIU/mL (0.27-4.20)
[2022-01-22 21:54] LABS: Magnesium 1.6 mg/dL (1.7-2.3)
[2022-01-22] MEDS: digoxin 250 mcg/ml INJ 2 mL IVP (23:15)
[2022-01-22] MEDS: pneumococcal (23 valent) SDV 0.5 mL IM (23:32)
[2022-01-22] MEDS: FUROsemide 10 mg/mL SDV 10mL 40 MG IVP (23:32)
[2022-01-22] MEDS: montelukast sodium 10 mg Tablet PO (23:37)
--- NOTE | 2022-01-22 23:39 | ECG_ITS ---
[facility] Test Date: 2022-01-22 Pat Name: Rebeca Álvarez Department: Room: [facility] Gender: Female [employer] Instructor: : 1950 Requested By: Torres Dupont Order Number: [id number] Reading MD: Massiel Cabezas M.D. Measurements Intervals [place] Rate: 151 P: FL: QRS: 32 QRSD: 90 T: 18 QT: 256 QTc: 406 Interpretive Statements ATRIAL FIBRILLATION WITH RAPID VENTRICULAR RESPONSE LOW QRS VOLTAGE IN PRECORDIAL LEADS [QRS DEFLECTION < 1.0 mV IN CHEST LEADS] ST DEPRESSION, CONSIDER SUBENDOCARDIAL INJURY [0.1+ mV ST DEPRESSION] CRITICAL TEST RESULT Compared to ECG 01/22/2022 17:43:25 Low QRS voltage now present ST (T wave) deviation now present Myocardial infarct finding no longer present Electronically Signed On 01-24-2022 0:51:02 CDT by Massiel Cabezas M.D. [id number]
[2022-01-22] MEDS: HYDROcodone-acetaminophen 10-325 mg Tablet 1 TAB PO (23:57)
[2022-01-22] MEDS: azithromycin 500 MG in sodium chloride 0.9% 250 ML 250 MG IV (23:58)
[2022-01-22] MEDS: magnesium sulfate premix 2 GM/50 ML PIGGYBACK IV (23:58)
[2022-01-23] VITALS (134 sets, daily range): BP systolic 75–138; BP diastolic 50–86; PULSE 57–143; RESP 12–29; TEMP 36.6; O2SAT 84–98
[2022-01-23] MEDS: esmolol drip 2,500 MG/250 ML PREMIX 130.63 MG IV ×3 (00:01→03:04)
[2022-01-23] MEDS: ondansetron 2 mg/ML SDV 2 mL 4 MG IVP (02:13)
[2022-01-23] MEDS: sodium chloride 0.9% 500 ML 999 ML IV (03:30)
--- NOTE | 2022-01-23 03:56 | XRR_ITS ---
PROCEDURE INFORMATION: Exam: XR Chest Exam date and time: 01/23/2022 4:08 AM Age: 71 years old Clinical indication: Device placement; Other: Central line placement; Patient HX: Breast cancer TECHNIQUE: Imaging protocol: Radiologic exam of the chest. Views: 1 view. COMPARISON: CR (CHEST, ) 01/22/2022 5:51 PM FINDINGS: Tubes, catheters and devices: Right-sided central venous line noted with the distal tip in the region of the lower SVC. Lungs: The lung parenchyma is clear. Mildly increased density overlying the left lung base likely due to overlapping soft tissues. Pleural spaces: No pneumothorax. No pleural effusion. Heart/Mediastinum: The heart is mildly enlarged for size. Bones/joints: Unremarkable. XR/XR chest 1V portable [id number] IMPRESSION: Right-sided central venous line noted with the distal tip in the region of the lower SVC.
--- NOTE | 2022-01-23 04:23 | ED_ITS ---
HPI - Arrhythmia/Palpitations General: Chief Complaint: Arrhythmia/Palpitations Stated Complaint: AFIB Time Seen by Provider: 01/22/22 17:59 Source: patient Mode of arrival: ambulatory Limitations: no limitations History of Present Illness: . MD complaint: rapid heart beat and atrial fibrillation Context: occurred during rest Treatments prior to arrival: beta-huan [facility] ED PFSH: Medical History (Updated 01/23/22 @ 04:24 by Roya Bautista MD) Abdominal pain HERBER (acute kidney injury) Atrial fibrillation Atrial fibrillation Atrial fibrillation with rapid ventricular response COPD (chronic obstructive pulmonary disease) Dehydration History of syncope HTN (hypertension) with goal to be determined Hypokalemia T2DM (type 2 diabetes mellitus) Volume overload Surgical History Hx of cholecystectomy Social History Smoking and tobacco status: current every day smoker Alcohol intake: never Marital status: / Procedures Central Line Placement Right IJ: Time Out Performed: Yes Patient Placed on Monitor/Pulse Ox: Yes MD Prep: mask, gown and gloves Central Line Prep: Povidone-Iodine 1% Local Anesthetic: lidocaine 1% Amount of anesthesia used (mL): 3 Ultrasound Used for Placement: Yes Central Line Lumen Inserted: triple Post Procedure: sutured in place, good blood return, all ports aspirated, flushed, capped and sterile dressing applied Post Procedure X-Ray: tip of catheter in good position and no pneumothorax seen Patient Tolerated Procedure: well Complications: none Course Vital Signs: Vital signs: Vital Signs Temperature 99.6 F 01/22/22 21:15 Pulse Rate 142 H 01/23/22 03:33 Respiratory Rate 16 01/23/22 03:33 Blood Pressure 89/54 01/23/22 00:55 Pulse Oximetry 91 01/23/22 03:33 Oxygen Delivery Me thod 01/23/22 03:33 Oxygen Flow Rate 3 01/23/22 03:33 MDM - Arrhythmia/Palpitations Medical Decision Making I was called to ICU for central line placement as patient was on pressors did place a central line no complications patient tolerated procedure well Lab Data : 01/22/22 17:50 01/22/22 17:50 Laboratory Results WBC 8.4 10^3/uL (4.0-10.0) 01/22/22 17:50 RBC 4.83 10^6/uL (4.1-5.3) 01/22/22 17:50 Hgb 15.1 g/dL (11.5-15.3) 01/22/22 17:50 Hct 48.5 % (37.0-47.0) H 01/22/22 17:50 MCV 100.4 fl (81-99) H 01/22/22 17:50 MCH 31.3 pg (28.0-34.0) 01/22/22 17:50 MCHC 31.1 g/dL (30.0-36.0) 01/22/22 17:50 RDW 13.1 % (12.1-15.1) 01/22/22 17:50 Plt Count 429 10^3/cmm (130-400) H 01/22/22 17:50 MPV 9.0 fL (7.4-10.4) 01/22/22 17:50 Neut % (Auto) 60.6 % 01/22/22 17:50 Lymph % (Auto) 25.3 % 01/22/22 17:50 [place] % (Auto) 10.8 % 01/22/22 17:50 Eos % (Auto) 2.4 % 01/22/22 17:50 Baso % (Auto) 0.5 % 01/22/22 17:50 Neut # (Auto) 5.07 10^3/uL (1.8-7.7) 01/22/22 17:50 Lymph # (Auto) 2.1 10^3/uL (0.8-4.8) 01/22/22 17:50 [place] # (Auto) 0.9 10^3/uL (0.2-0.9) 01/22/22 17:50 Eos # (Auto) 0.2 10^3/uL (0.0-0.8) 01/22/22 17:50 Baso # (Auto) 0.0 10^3/uL (0.0-0.1) 01/22/22 17:50 Nucleated RBC % (auto) 0 % 01/22/22 17:50 Nucleated RBCs # 0.0 /100WBC 01/22/22 17:50 PT 15.50 SECONDS (12.1-14.9) H 01/22/22 17:50 INR 1.20 (0.8-1.2) 01/22/22 17:50 Sodium 140 mmol/L (136-145) 01/22/22 17:50 Potassium 3.8 mmol/L (3.5-5.1) 01/22/22 17:50 Chloride 100 mmol/L (98-107) 01/22/22 17:50 Carbon Dioxide 29 mmol/L (22-29) 01/22/22 17:50 Anion Gap 14.8 (5-19) 01/22/22 17:50 BUN 13 mg/dL (8-23) 01/22/22 17:50 Creatinine 1.1 mg/dL (0.5-0.9) H 01/22/22 17:50 GFR Calculation Not Reportable 01/22/22 17:50 Glucose 124 mg/dL (65-115) H 01/22/22 17:50 Calculated Osmolality 292 mOsm/kg (285-295) 01/22/22 17:50 Lactic Acid 1.6 mmol/L (0.5-2.2) 01/22/22 17:50 Calcium 10.2 mg/dL (8.5-10.5) 01/22/22 17:50 Magnesium 1.6 mg/dL (1.7-2.3) L 01/22/22 19:40 Total Bilirubin 0.4 mg/dL (0.15-1.2) 01/22/22 17:50 AST 25 U/L (0-32) 01/22/22 17:50 ALT 10 U/L (0-33) 01/22/22 17:50 Alkaline Phosphatase 75 IU/L (35-105) 01/22/22 17:50 Troponin T Baseline 48 ng/L (0-10) H 01/22/22 17:50 Troponin T 120 Minute 40.69 ng/L (0-10) H 01/22/22 19:40 Delta Troponin T -7.31 ABS# (0-10) L 01/22/22 19:40 Total Protein 6.4 g/dL (6.6-8.7) L 01/22/22 17:50 Albumin 3.6 g/dL (3.5-5.2) 01/22/22 17:50 Globulin 2.8 g/dL (1.3-4.6) 01/22/22 17:50 Procalcitonin 0.05 ng/mL (0-0.5) 01/22/22 19:40 TSH 0.77 uIU/mL (0.27-4.20) 01/22/22 19:40 TSH Cancelled 01/22/22 19:40 Discharge Plan Discharge Patient Disposition: Admitted As Inpatient Admit Provider: Jennie Mata Clinical Impression: Atrial fibrillation with rapid ventricular response Condition: Stable Coding Level of Care Code ED V Belt Finisher for Emely Silva
--- NOTE | 2022-01-23 06:08 | ECG_ITS ---
[facility] Test Date: 2022-01-23 Pat Name: Rebeca Álvarez Department: Room: [facility]08 Gender: Female Capacitor Assembler: : 1950 Requested By: Massiel Cabezas Order Number: [id number] Reading MD: Massiel Cabezas M.D. Measurements Intervals [place] Rate: 63 P: 66 [place]: 244 QRS: 0 QRSD: 80 T: 45 QT: 404 QTc: 415 Interpretive Statements SINUS RHYTHM WITH FIRST DEGREE AV BLOCK LOW QRS VOLTAGE IN PRECORDIAL LEADS [QRS DEFLECTION < 1.0 mV IN CHEST LEADS] POSSIBLE ANTERIOR MYOCARDIAL INFARCTION , OF INDETERMINATE AGE [30 ms Q WAVE IN V3/V4, OR R < 0.2 mV IN V4] Compared to ECG 01/22/2022 23:02:44 First degree AV block now present Myocardial infarct finding now present Atrial fibrillation no longer present ST (T wave) deviation no longer present Electronically Signed On 01-24-2022 0:41:15 CDT by Massiel Cabezas M.D. [id number]
--- NOTE | 2022-01-23 06:16 | PC.NURSE ---
Dr. Cabezas called unit for an update on patient. Update given. Order for EKG stat with return call with QTc report. Patient became bradycardic with heart rate low 60's dropping to mid 40's periodically. Telephone order given to stop amiodarone drip.
--- NOTE | 2022-01-23 06:22 | PC.NURSE ---
Change in patient status Patient started becoming increasingly hypotensive around 0200. Dr Rodríguez was notified and Esmolol gtt was stopped. 500ml bolus was administered and then Levo started. R subclavian central line was obtained for greater vascular access. Amio Bolus administered and then gtt started at 1mg/hr.
--- NOTE | 2022-01-23 06:25 | PC.NURSE ---
Patient converted to Sinus Rhythm at 0509.
[2022-01-23 06:28] LABS: Basophils % 0.3 %; Eosinophils % 0.1 %; Hemoglobin 13.7 g/dL (11.5-15.3); Lymphocytes # 0.8 10^3/uL (0.8-4.8); Mean Corpuscular HGB Conc 31.1 g/dL (30.0-36.0); Mean Corpuscular Hemoglobin 31.1 pg (28.0-34.0); Monocytes # 0.1 10^3/uL (0.2-0.9); Monocytes % 1.4 %; Neutrophils # 6.36 10^3/uL (1.8-7.7); Neutrophils % 86.7 %; Nucleated Red Blood Cells % 0 %; Platelet Count 399 10^3/cmm (130-400); Red Cell Distribution Width 13.1 % (12.1-15.1); White Blood Count 7.3 10^3/uL (4.0-10.0)
--- NOTE | 2022-01-23 06:35 | PC.NURSE ---
Lorene gtt stopped via Dr. Cabezas's orders
--- NOTE | 2022-01-23 07:40 | P.CONIM_ITS ---
Providers/Reason For Consult Consulting Physician/Specialty*: SCOTT Cabezas MD/cardiology Reason for Consult*: Patient with atrial fibrillation rapid ventricular rate Requesting Physician: Esperanza Attending Physician: Nathaniel Sam MD History of Present Illness History of Present Illness Rebeca Álvarez is a 71 year old female is admitted to hospital through the emergency room where she presented with complaints of palpitation and generalized weakness with shortness of breath. This patient is known to have chronic intermittent atrial fibrillation. She was recently discharged from the hospital eventually admitted with atrial fibrillation rapid ventricular rate. She was placed back on the medicine that she been taking namely Tikosyn 125 mg p.o. twice daily and metoprolol 12.5 mg p.o. twice daily. Currently patient, she was doing okay for a week or so. For the last 5 or 6 days, she been having episodes of palpitation associated with weakness. No syncopal episodes. She has no chest pain. No fever, chills or cough. She also has some shortness of breath. She has a history of COPD with intermittent exacerbation. She used to be followed by a certified residential medication aide in [place]. Apparently she was tried on multiple antiarrhythmic drugs. We do not have the list of medication that was tried in the past. However patient recalls Betapace and flecainide. She could not take the flecainide. The Betapace also was tried but did not work, according to the patient. Whether she was on a higher dose of Tikosyn or not prior to the current dose is also not known. She has been taking the Tikosyn 125 mg p.o. twice daily, as mentioned above. Recently she was admitted to hospital in [place] with a COPD exacerbation. The general merchandise salesperson started her on bisoprolol and short of the metoprolol. Her most recent hospital admission he had at the [facility] was thought to be because of this medication change. So we placed her back on the metoprolol during that admission. She has a history of syncopal episodes prior to the last hospital admission. Has not had any syncope since the last hospital discharge. She had chemical stress test few years ago and was told to be okay.? No history for coronary artery disease or myocardial infarction.? No history for any heart failure.? She was recently diagnosed with diabetes.? She started taking insulin couple of months ago.? No history of? hypertension or dyslipidemia.? He has been taking prednisone for arthritis off and on.? Apparently this was giving her some relief of symptoms.? Review of Systems Narrative: CONSTITUTIONAL: No fever or chills. Has generalized weakness and some shortness of breath. EYES: No blurring of vision or other visual disturbances lately. ENT: No hoarseness of voice, auditory disturbances or sore throat. CARDIOVASCULAR: As mentioned above. RESPIRATORY: History of recurrent COPD exacerbation/pneumonia has not the patient GASTROINTESTINAL: No hematemesis or melena. GENITOURINARY: No dysuria or hematuria. INTEGUMENTARY: No skin rashes or history of skin cancer. NEURO: No transient ischemic attacks or amaurosis. PSYCHIATRIC: No history of psychosis or major depression. HEMATOLOGIC: No bleeding disorders or significant anemia. ENDOCRINE: Recently diagnosed diabetes MUSCULOSKELETAL: History of degenerative joint disease ALLERGY/IMMUNOLOGY: As mentioned above. Medications/Allergies Home Medications Medication Instructions Recorded Confirmed Last Taken Type alprazolam 1 mg tablet 0.5 mg PO BID 14 days #14 tabs 01/25/22 01/29/22 Unknown Rx dofetilide 125 mcg capsule 250 mcg PO BID 30 days #120 caps 01/25/22 01/29/22 Unknown Rx furosemide 40 mg tablet (Lasix) 40 mg PO BID 30 days #60 tabs 01/25/22 01/29/22 Unknown Rx hydrocodone 10 mg-acetaminophen 1 tab PO Q6H PRN Pain #14 tabs 01/25/22 01/29/22 Unknown Rx 325 mg tablet lactulose 10 gram/15 mL oral 10 g (15 mL) PO DAILY PRN 01/25/22 01/29/22 Unknown Rx solution constipation #237 mL montelukast 10 mg tablet 1 mg PO BEDTIME #30 tabs 01/25/22 01/29/22 Unknown Rx pantoprazole 40 mg tablet,delayed 40 mg PO DAILY #14 tabs 01/25/22 01/29/22 Unknown Rx release potassium chloride 20 mEq 40 meq PO DAILY 30 days #30 tabs 01/25/22 01/29/22 Unknown Rx tablet,extended release(part/cryst) (Klor-Con M) prednisone 20 mg tablet 40 mg PO DAILY #10 tabs 01/25/22 01/29/22 Unknown Rx rivaroxaban 15 mg tablet (Xarelto) 15 mg PO DAILY #30 tabs 01/25/22 01/29/22 Unknown Rx rosuvastatin 20 mg tablet 20 mg PO DAILY 30 days #30 tabs 01/25/22 01/29/22 Unknown Rx sennosides 8.6 mg-docusate sodium 1 tab PO BID #60 tabs 01/25/22 01/29/22 Unknown Rx 50 mg tablet (Stool Softener-Laxative) zolpidem 10 mg tablet 10 mg PO BEDTIME #30 tabs 01/25/22 01/29/22 Unknown Rx albuterol sulfate 2.5 mg inhalation Q4H PRN 01/29/22 01/29/22 Unknown History Shortness Of Breath albuterol sulfate 90 mcg/actuation 1 puff inhalation QID PRN 01/29/22 01/29/22 Unknown History aerosol inhaler Shortness Of Breath umeclidinium 62.5 mcg-vilanterol 1 inh inhalation DAILY 01/29/22 01/29/22 Unknown History 25 mcg/actuation powdr for inhalation (Anoro Ellipta) Allergies Allergy/AdvReac Type Severity Reaction Status Date / Time morphine Allergy Unknown Verified 01/06/22 08:19 Penicillins Allergy Unknown Verified 01/06/22 08:19 Current Medications Generic Name Dose Route Start Last Admin Trade Name Freq PRN Reason Stop Dose Admin Hydrocodone Bitart/Acetaminophen 1 tab 01/22/22 21:14 01/22/22 23:57 Hydrocodone-Acetaminophen 10-325 Mg Tablet PO 1 tab Q6H PRN Administration Pain Albuterol/Ipratropium 3 ml 01/23/22 02:00 01/23/22 03:33 Ipratropium-Albuterol 3 Ml Neb INHALATION Not Given Q6H.RESP JONATAN Furosemide 40 mg 01/22/22 21:27 01/22/22 23:32 Furosemide 10 Mg/Ml Sdv 10ml IVP 40 mg Q12H JONATAN Administration Amiodarone HCl 900 mg/ 518 mls @ 0 mls/hr 01/23/22 03:45 01/23/22 05:00 Dextrose/ IV Miscellaneous IV 1 mg/min Supplies .Q0M JONATAN 34.53 mls/hr Administration Protocol Per Protocol Norepinephrine Bitartrate 4 mg 254 mls @ 0 mls/hr 01/23/22 03:45 01/23/22 03:30 / Dextrose IV 2 mcg/min .Q0M JONATAN 7.62 mls/hr Administration Protocol Per Protocol Montelukast Sodium 1 mg 01/22/22 21:14 01/22/22 23:37 Montelukast Sodium 10 Mg Tablet PO 1 mg BEDTIME JONATAN Administration Non-Formulary Medication 10 mg 01/22/22 21:14 01/23/22 01:01 Zolpidem PO Not Given BEDTIME JONATAN Ondansetron HCl 4 mg 01/22/22 20:58 01/23/22 02:13 Ondansetron 2 Mg/Ml Sdv 2 Ml IVP 4 mg Q8H PRN Administration vomiting, or N/V if npo PFSH Acute PFSH: Medical History Abdominal pain HERBER (acute kidney injury) Atrial fibrillation Atrial fibrillation Atrial fibrillation with rapid ventricular response COPD (chronic obstructive pulmonary disease) Dehydration History of syncope HTN (hypertension) with goal to be determined Hypokalemia Right heart failure T2DM (type 2 diabetes mellitus) Volume overload Surgical History Hx of cholecystectomy Social History Smoking and tobacco status: current every day smoker Alcohol intake: never Marital status: / Vitals/I&O/Wt Last Vital Signs Temp 99.6 F 01/22/22 21:15 Pulse 96 01/23/22 04:50 Resp 16 01/23/22 03:33 BP 106/68 01/23/22 04:50 Pulse Ox 95 01/23/22 04:50 O2 Del Method 01/23/22 03:33 O2 Flow Rate 3 01/23/22 03:33 01/22/22 01/23/22 01/23/22 22:59 06:59 14:59 Intake Total 814.153 / 725.932 3069.578 / 2104.731 Output Total 50 / 50 Balance 764.153 / 288.632 3106.578 / 2054.731 Weight last 48 hrs Weight 230 lb 4.8 oz Weight 240 lb Physical Exam Narrative: GENERAL: The patient is alert and oriented times three. Not in any acute distress. HEENT: No significant pallor, icterus or lymphadenopathy.Oral cavity: There are no mucous membrane lesions. Fundus is not visualized NECK: Trachea appears to be central. No masses noted. No JVD or thyromegaly appreciated. RESPIRATORY: Chest is symmetrical. No intercostals muscle retraction or any accessory muscle activation. There is no chest wall tenderness. Breath sounds are heard bilaterally. No rales or rhonchi heard. No evidence of any consolidation. BREASTS: Deferred. HEART: The first heart sound is variable. Second heart sound is normal. No S3 or S4. Short systolic murmur in the left sternal border. No diastolic murmurs. No pericardial rub ABDOMEN: No vessel pulsations or distention. No tenderness. No organomegaly appreciated. Bowel sounds are normally heard. : Deferred. RECTAL: Deferred. LYMPHATIC: No lymphadenopathy noted in the neck. EXTREMITIES: No edema or cyanosis. No clubbing. MUSCULOSKELETAL: No acute joint deformities or swelling SKIN: There are no significant rashes or ecchymosis NEUROPSYCHIATRIC: The patient is alert and oriented x3. Appears to be in a good mood. No tremors or rigidity noted. Data : 01/24/22 08:30 01/25/22 04:46 Other Labs: Laboratory Last Values WBC 7.3 10^3/uL (4.0-10.0) 01/23/22 04:40 RBC 4.40 10^6/uL (4.1-5.3) 01/23/22 04:40 Hgb 13.7 g/dL (11.5-15.3) 01/23/22 04:40 Hct 44.0 % (37.0-47.0) 01/23/22 04:40 MCV 100.0 fl (81-99) H 01/23/22 04:40 MCH 31.1 pg (28.0-34.0) 01/23/22 04:40 MCHC 31.1 g/dL (30.0-36.0) 01/23/22 04:40 RDW 13.1 % (12.1-15.1) 01/23/22 04:40 Plt Count 399 10^3/cmm (130-400) 01/23/22 04:40 MPV 10.0 fL (7.4-10.4) 01/23/22 04:40 Neut % (Auto) 86.7 % 01/23/22 04:40 Lymph % (Auto) 11.0 % 01/23/22 04:40 [place] % (Auto) 1.4 % 01/23/22 04:40 Eos % (Auto) 0.1 % 01/23/22 04:40 Baso % (Auto) 0.3 % 01/23/22 04:40 Neut # (Auto) 6.36 10^3/uL (1.8-7.7) 01/23/22 04:40 Lymph # (Auto) 0.8 10^3/uL (0.8-4.8) 01/23/22 04:40 [place] # (Auto) 0.1 10^3/uL (0.2-0.9) L 01/23/22 04:40 Eos # (Auto) 0.0 10^3/uL (0.0-0.8) 01/23/22 04:40 Baso # (Auto) 0.0 10^3/uL (0.0-0.1) 01/23/22 04:40 Nucleated RBC % (auto) 0 % 01/23/22 04:40 Nucleated RBCs # 0.0 /100WBC 01/23/22 04:40 PT 15.50 SECONDS (12.1-14.9) H 01/22/22 17:50 INR 1.20 (0.8-1.2) 01/22/22 17:50 Sodium 141 mmol/L (136-145) 01/23/22 04:40 Potassium 3.8 mmol/L (3.5-5.1) 01/23/22 04:40 Chloride 104 mmol/L (98-107) 01/23/22 04:40 Carbon Dioxide 26 mmol/L (22-29) 01/23/22 04:40 Anion Gap 14.8 (5-19) 01/23/22 04:40 BUN 12 mg/dL (8-23) 01/23/22 04:40 Creatinine 1.0 mg/dL (0.5-0.9) H 01/23/22 04:40 GFR Calculation Not Reportable 01/23/22 04:40 Glucose 197 mg/dL (65-115) H 01/23/22 04:40 Calculated Osmolality 297 mOsm/kg (285-295) H 01/23/22 04:40 Lactic Acid 1.6 mmol/L (0.5-2.2) 01/22/22 17:50 Calcium 9.1 mg/dL (8.5-10.5) 01/23/22 04:40 Magnesium 2.3 mg/dL (1.7-2.3) 01/23/22 04:40 Total Bilirubin 0.3 mg/dL (0.15-1.2) 01/23/22 04:40 AST 21 U/L (0-32) 01/23/22 04:40 ALT 8 U/L (0-33) 01/23/22 04:40 Alkaline Phosphatase 65 IU/L (35-105) 01/23/22 04:40 Troponin T Baseline 48 ng/L (0-10) H 01/22/22 17:50 Troponin T 120 Minute 40.69 ng/L (0-10) H 01/22/22 19:40 Delta Troponin T -7.31 ABS# (0-10) L 01/22/22 19:40 Troponin T Hi Sens 6Hr 42.10 ng/L (0-10) H 01/22/22 22:53 Troponin T Hi Sens 6Hr Delta -5.90 ng/L (0-12) L 01/22/22 22:53 Total Protein 5.6 g/dL (6.6-8.7) L 01/23/22 04:40 Albumin 3.1 g/dL (3.5-5.2) L 01/23/22 04:40 Globulin 2.5 g/dL (1.3-4.6) 01/23/22 04:40 Procalcitonin 0.05 ng/mL (0-0.5) 01/22/22 19:40 TSH 0.77 uIU/mL (0.27-4.20) 01/22/22 19:40 TSH Cancelled 01/22/22 19:40 Echo: My impression: 01/06/2022 Normal LV size ejection fraction of 62%.? No gross wall motion ?abnormalities. ?The right ventricle appears to be mildly dilated with slightly ?diminished ejection fraction ?There is no pericardial effusion. ?There are no intracardiac masses. ?Technically difficult study A&P Assessment and plan (1) Atrial fibrillation with rapid ventricular response: Patient was started on amiodarone patient was started on amiodarone last night. Her QTC is within normal limits. Instead of trying a new medicine, it may be appropriate to maximize the dose of the Tikosyn. Since the hospital does not have the Tikosyn ,once her son brings the medicine, we may try giving her 500 mg loading dose and see the response. Based on the clinical response, further recommendations will be made. I may discontinue the amiodarone. Status: Acute (2) T2DM (type 2 diabetes mellitus): May continue on the current medications. Status: Inactive (3) COPD (chronic obstructive pulmonary disease): Treatment as per Dr. Chavez Status: Acute (4) Acute diastolic heart failure: May be treated carefully with the diuretics. Status: Acute (5) Elevated white blood cell count: Possibly related to upper respiratory tract infection. Management as per the primary Status: Acute Plan Based on the patient's clinical progress, further recommendations will be made Thank you for the opportunity to eval this patient and make these recommendations Consult Attestations Medical Necessity Statement: Patient requires continued hospital stay for close monitoring and further management Coding Level of Care Code Acute Retail Client Solutions Analyst for Emely Silva History Detailed Exam Detailed Medical Decision Making Moderate Complexity Diagnoses Atrial fibrillation with rapid ventricular response I48.91 T2DM (type 2 diabetes mellitus) E11.9 COPD (chronic obstructive pulmonary disease) J44.9 Acute diastolic heart failure I50.31 Elevated white blood cell count D72.829
[2022-01-23 07:50] LABS: Alanine Aminotransferase 8 U/L (0-33); Albumin Level 3.1 g/dL (3.5-5.2); Alkaline Phosphatase 65 IU/L (35-105); Aspartate Amino Transferase 21 U/L (0-32); Blood Urea Nitrogen 12 mg/dL (8-23); Calcium 9.1 mg/dL (8.5-10.5); Carbon Dioxide 26 mmol/L (22-29); Globulin 2.5 g/dL (1.3-4.6); Glucose 197 mg/dL (65-115); Magnesium 2.3 mg/dL (1.7-2.3); Total Bilirubin 0.3 mg/dL (0.15-1.2); Total Protein 5.6 g/dL (6.6-8.7)
[2022-01-23 07:58] LABS: Anion Gap 14.8 (5-19); Chloride 104 mmol/L (98-107); Osmolality Calculated 297 mOsm/kg (285-295); Potassium 3.8 mmol/L (3.5-5.1); Sodium 141 mmol/L (136-145)
[2022-01-23 08:02] LABS: Creatinine Clr Calc Pharmacy 61.1934
[2022-01-23] MEDS: pantoprazole DR 40 mg Tablet PO (08:11)
[2022-01-23] MEDS: predniSONE 20 mg Tablet 40 MG PO (08:11)
[2022-01-23] MEDS: atorvastatin 40 mg Tablet 80 MG PO (08:11)
[2022-01-23] MEDS: azithromycin 250 mg Tablet PO (08:11)
[2022-01-23] MEDS: rivaroxaban 10 mg Tablet 15 MG PO (08:11)
--- NOTE | 2022-01-23 10:11 | ECG_ITS ---
[facility] Test Date: 2022-01-23 Pat Name: Rebeca Álvarez Department: Room: [facility]08 Gender: Female Analytical Lab Analyst: : 1950 Requested By: Massiel Cabezas Order Number: [id number] Reading MD: Massiel Cabezas M.D. Measurements Intervals [place] Rate: 117 P: [place]: QRS: 4 QRSD: 85 T: 0 QT: 345 QTc: 483 Interpretive Statements ATRIAL FIBRILLATION WITH RAPID VENTRICULAR RESPONSE POSSIBLE ANTERIOR MYOCARDIAL INFARCTION , PROBABLY OLD [30 ms Q WAVE IN V3/V4, OR R < 0.2 mV IN V4] ABNORMAL RHYTHM ECG Compared to ECG 01/23/2022 06:11:23 Sinus rhythm no longer present First degree AV block no longer present Myocardial infarct finding still present Electronically Signed On 01-24-2022 0:43:30 CDT by Massiel Cabezas M.D. [id number]
[2022-01-23] MEDS: magnesium hydroxide 30 mL UDC PO (10:15)
[2022-01-23] MEDS: ALPRAZolam 0.5 mg Tablet PO ×2 (10:15→17:15)
[2022-01-23] MEDS: metoprolol tartrate 25 mg Tablet 12.5 MG PO ×2 (10:15→20:18)
[2022-01-23 10:45] LABS: D Dimer 1.63 ug/mIFEU (0-0.59)
[2022-01-23 11:31] LABS: Folate Level 15.1 ng/mL (4.8-37.3)
[2022-01-23 11:32] LABS: Iron 42 ug/dL (37-145); NT Pro B Type Natriuretic Pept 3448 pg/mL (0-125); Percent Saturation 14.6 % (20-50); Total Iron Binding Capacity 286 mcg/dl; Unsaturated Iron Binding 244 ug/dL (112-347); Vitamin B12 789 pg/mL (232-1245)
--- NOTE | 2022-01-23 14:24 | ECG_ITS ---
[facility] Test Date: 2022-01-23 Pat Name: Rebeca Álvarez Department: Room: [facility]08 Gender: Female Retail Advertising Executive: : 1950 Requested By: Nathaniel Sam Order Number: [id number] Mohamud MD: Harsh Hernandez M.D. Measurements Intervals [place] Rate: 61 P: 69 [place]: 226 QRS: 7 QRSD: 97 T: 54 QT: 454 QTc: 459 Interpretive Statements SINUS RHYTHM WITH FIRST DEGREE AV BLOCK Compared to ECG 01/23/2022 10:36:50 First degree AV block now present Atrial fibrillation no longer present Myocardial infarct finding no longer present Electronically Signed On 01-24-2022 19:04:04 CDT by Harsh Hernandez M.D. [id number]
[2022-01-23] MEDS: HYDROcodone-acetaminophen 10-325 mg Tablet 1 TAB PO (14:35)
--- NOTE | 2022-01-23 15:50 | P.PN_ITS ---
Subjective Subjective: Admitted overnight. On examination seen in ICU with family at bedside. Patient's heart rate running in 140s to 120s. Levophed turned off early in the morning around 5 AM. Amiodarone drip has also been stopped. During conversation her started on amiodarone drip. Currently running at 0.5. Patient denies of having any chest pain, fogginess, palpitations. States feeling better. Vitals/I&O/Wt Last Vital Signs Temp 97.8 F 01/23/22 11:30 Pulse 61 01/23/22 13:47 Resp 16 01/23/22 12:00 BP 129/65 01/23/22 12:00 Pulse Ox 94 01/23/22 12:00 O2 Del Method 01/23/22 03:33 O2 Flow Rate 3 01/23/22 03:33 01/23/22 01/23/22 01/23/22 06:59 14:59 22:59 Intake Total 1295.758 / 2109.911 535.859 / 535.859 Balance 1295.758 / 2059.911 535.859 / 535.859 Weight last 48 hrs Weight 104.462 kg Weight 108.862 kg Physical Exam Narrative: General: Alert oriented x3, patient seen sitting up in bed on 3 L nasal cannula, HEENT: Normocephalic, atraumatic, EOMI, breathing normally, no acute distress. Cardio: Irregularly irregular, tachycardic normal S1-S2, Respiratory: Diffuse rhonchi throughout lung bullock with bibasilar crackles GI: Abdomen soft, nontender, nondistended, bowel sounds + Behavior: Appropriate and cooperative Extremities: 3+ pitting edema up to knees bilaterally Data : 01/23/22 04:40 01/23/22 04:40 A&P Assessment and plan (1) Atrial fibrillation with rapid ventricular response: Status: Acute (2) Right heart failure: Status: Acute (3) T2DM (type 2 diabetes mellitus): Status: Acute (4) COPD (chronic obstructive pulmonary disease): Status: Acute (5) HTN (hypertension) with goal to be determined: Status: Acute (6) Chronic anticoagulation: Status: Acute Plan #Atrial fibrillation with RVR: Stop amiodarone drip. 1 hour after stopping amiodarone load with dofetilide 500 mg 1 time. Check EKG before and 3 hours after the loading dose and monitor for QTC. We will plan for 125 versus 250 mg dose as per EKG and QTC. Restart home dose of metoprolol 12.5 mg twice daily. Monitor blood pressures. Continue with home dose of Xarelto for anticoagulation. Last echocardiogram done in December 2021 shows an EF of 62% with slightly decreased right ventricular systolic function and right ventricular dilatation. Appreciate cardiology recommendations. #Acute on chronic COPD exacerbation: Very mild eczema exacerbation. Continue prednisone 40 mg oral daily. Switch to ipratropium and Xopenex every 6 hour. Start on budesonide twice daily. Oxygen supplementation keeping saturation over 88%. #Right-sided heart failure: Currently compensated. Hold off on any further Lasix or IV fluid. Monitor fluid status. #Hypertension #Type 2 diabetes mellitus #History of recent pneumonia 6 weeks. Restart home medications including Xanax. Analgesia: Home dose of hydrocodone 10 mg every 6 hour as needed Glycemic control: Not needed. Check A1c. Nutrition: Cardiac diet CODE STATUS: Full code PUD prophylaxis: Protonix DVT prophylaxis: Xarelto Discharge planning: Plan to discharge home with caregiver once medically stable. Continue with care at ICU level. This documentation was created by [employer] salesperson new cars software. Every effort was made to ensure accuracy of salesperson new cars. Any obvious errors or omissions should be clarified with the author of the document. Attestations Medical Necessity Statement*: Requires further hospitalization for management of atrial fibrillation with rapid ventricular response while QTC is monitored Critical Care Time: The high probability of a clinically significant, sudden or life threatening deterioration of the patient's [cardiac, pulmonary] system(s) required my full and direct attention, intervention and personal management. The critical care time is as shown. This time is in addition to time spent performing any reported procedures but includes the following: [x] Data and vital sign review and interpretation [x] Patient assessment, examination and intervention [x] Documentation [x] Medication orders and management Critical Care Time (min): 70 Coding Level of Care Code Acute Strip Cutting Machine Operator for Chg Fwd Diagnoses Atrial fibrillation with rapid ventricular response I48.91 Right heart failure I50.810 T2DM (type 2 diabetes mellitus) E11.9 COPD (chronic obstructive pulmonary disease) J44.9 HTN (hypertension) with goal to be determined I10 Chronic anticoagulation Z79.01
[2022-01-23] MEDS: ferrous gluconate 324 mg Tablet PO (17:15)
[2022-01-23] MEDS: ipratropium 0.5 mg/2.5 mL Neb INHALATION (20:00)
[2022-01-23] MEDS: levalbuterol 0.63 mg/3 mL Neb INHALATION (20:00)
[2022-01-23] MEDS: budesonide 0.5 mg/2 mL Neb INHALATION (20:03)
[2022-01-23] MEDS: sennosides 8.6 mg Tablet PO (20:18)
[2022-01-23] MEDS: montelukast sodium 10 mg Tablet PO (20:18)
[2022-01-23 21:21] LABS: Add Urine Microscopic? YES; Bilirubin Urine Neg (Negative); Blood Urine Neg (Negative); Glucose Urine UA 2+ (Normal); Ketones Urine Negative (Negative); Leukocyte Esterase Urine Negative (Negative); Nitrate Urine Negative (Negative); Protein Urine Trace (Negative); Urine Appearance Clear (CLEAR); Urine Color Yellow (Yellow); Urobilinogen Urine Norm (Negative); pH Urine 5 (5-7)
[2022-01-23 21:24] LABS: Add Urine Culture? No; Bacteria Urine 4+ /hpf; Mucus Urine 3+ /hpf; RBC Urine 0-4 /hpf (0-2); Squamous Epithelial Cell Urine 25-40 /hpf (0-5); WBC Urine 25-40 /hpf (0-5)
[2022-01-24] VITALS (98 sets, daily range): BP systolic 93–165; BP diastolic 50–90; PULSE 50–127; RESP 8–31; TEMP 36.6; O2SAT 83–100
--- NOTE | 2022-01-24 07:04 | CT_ITS ---
WS: [id number] CT CHEST WITHOUT INTRAVENOUS CONTRAST HISTORY: sob TECHNIQUE: Contiguous 5 mm axial imaging performed on the thorax. Coronal and sagittal reformats are submitted. All CT scans at [facility] use at least one of these dose optimization techniques: automated exposure control; mA and/or kV adjustment per patient size (includes targeted exams where dose is matched to clinical indication); or iterative reconstruction. CONTRAST: None DLP: 649.85 mGy.cm COMPARISON: None available. Lungs and central airway: Centrilobular emphysema. No mass or nodule. Subsegmental atelectasis at the lung bases. Pleura: Normal. No pleural effusion. Heart and pericardium: Mild enlargement of the heart. No pericardial effusion. Mediastinum and portia: No mediastinum or hilar adenopathy. Vessels: Mild atherosclerosis aorta. Normal size pulmonary artery. RIGHT IJ line with tip terminating in the distal SVC. Chest wall and lower neck: No soft tissue masses. Upper abdomen: Prior cholecystectomy. Pneumobilia. Mild pancreatic atrophy. No pancreatic duct dilata tion. No adrenal mass. Osseous structures: Mild scoliosis thoracic spine. No osteoblastic or osteolytic bone disease. CT/CT chest wo con [id number] IMPRESSION: 1. Minimal subsegmental atelectasis at the lung bases. 2. No pneumonia or pneumothorax. 3. Mild cardiomegaly. 4. Prior cholecystectomy. Pneumobilia. 5. Centrilobular emphysema.
[2022-01-24] MEDS: budesonide 0.5 mg/2 mL Neb INHALATION ×2 (08:10→20:10)
[2022-01-24] MEDS: levalbuterol 0.63 mg/3 mL Neb INHALATION ×2 (08:10→20:11)
[2022-01-24] MEDS: ipratropium 0.5 mg/2.5 mL Neb INHALATION ×2 (08:10→20:10)
[2022-01-24] MEDS: rivaroxaban 10 mg Tablet 15 MG PO (08:19)
[2022-01-24] MEDS: ALPRAZolam 0.5 mg Tablet PO ×2 (08:19→17:20)
[2022-01-24] MEDS: predniSONE 20 mg Tablet 40 MG PO (08:19)
[2022-01-24] MEDS: ferrous gluconate 324 mg Tablet PO ×2 (08:19→17:19)
[2022-01-24] MEDS: pantoprazole DR 40 mg Tablet PO (08:19)
[2022-01-24] MEDS: azithromycin 250 mg Tablet PO (08:20)
[2022-01-24] MEDS: metoprolol tartrate 25 mg Tablet 12.5 MG PO (08:20)
[2022-01-24] MEDS: atorvastatin 40 mg Tablet 80 MG PO (08:20)
[2022-01-24] MEDS: FUROsemide 10 mg/mL SDV 10mL 40 MG IVP (08:20)
[2022-01-24] MEDS: sennosides 8.6 mg Tablet PO (08:25)
--- NOTE | 2022-01-24 08:53 | P.PN_ITS ---
Subjective Subjective: She feels better. some congestion today Remains in SR Medications: Reviewed: Yes Vitals/I&O/Wt Last Vital Signs Temp 97.8 F 01/24/22 04:00 Pulse 68 01/24/22 08:14 Resp 20 H 01/24/22 08:13 BP 137/61 01/24/22 05:15 Pulse Ox 95 01/24/22 08:13 O2 Del Method 01/24/22 08:13 O2 Flow Rate 3 01/24/22 08:13 01/23/22 01/24/22 01/24/22 22:59 06:59 14:59 Intake Total 480 / 1015.859 Output Total 50 / 50 0 / 50 Balance 430 / 965.859 0 / 965.859 Weight last 48 hrs Weight 230 lb 4.8 oz Weight 240 lb Physical Exam Narrative: GENERAL: obese woman sitting in bed in no acute distress HEENT: Extraocular movement intact. No pallor or icterus. NECK: No JVD, No carotid bruit. CARDIOVASCULAR SYSTEM: S1-S2 regular. No S3 or S4 present. No murmur rubs or gallops. RESPIRATORY SYSTEM: Chest clear to auscultation. No wheezes rhonchi or rubs heard. No use of accessory muscles. ABDOMEN: Soft, nontender and nondistended. Normal bowel sounds present. EXTREMITIES: No cyanosis or edema. No signs of chronic venous insufficiency. MECHANICAL SERVICE SPECIALIST: Patient is alert oriented ?3. No focal neurological deficits. SKIN: Normal turgor and temperature. PSYCH: Normal insight and judgment. Data : 01/24/22 08:30 01/24/22 08:30 Micro: Microbiology 01/23/22 20:40 Bacterial Antigens - Final Urine Kidney 01/23/22 20:40 Legionella Urinary Antigen - Final Urine,Clean Catch A&P Assessment and plan (1) Atrial fibrillation with rapid ventricular response: Patient was started on amiodarone patient was started on amiodarone day before yesterday. Her QTC is within normal limits. -Since the hospital does not have the Tikosyn , her son brought the medicine, -She recieved loading dose of Tikosyn 500 mcg f/b 250 mcg -EKG and telemetry reviewed -continue with Tikosyn 250 mcg twice a day -EKG 2 hour after each dose of Tikosyn Status: Acute (2) Acute diastolic heart failure: May be treated carefully with the diuretics. Status: Acute (3) T2DM (type 2 diabetes mellitus): May continue on the current medications. Status: Acute (4) COPD (chronic obstructive pulmonary disease): Treatment as per primary team Status: Acute Plan Based on the patient's clinical progress, further recommendations will be made Thank you for the opportunity to eval this patient and make these recommendations Attestations Medical Necessity Statement*: needs hospital stay for Tikosyn monitoring and CHF Time Spent in Patient Care: Greater than 35 minutes Coding Level of Care Code Acute Multicultural Internship for g Fwd Diagnoses Atrial fibrillation with rapid ventricular response I48.91 Acute diastolic heart failure I50.31 T2DM (type 2 diabetes mellitus) E11.9 COPD (chronic obstructive pulmonary disease) J44.9
[2022-01-24 08:59] LABS: Basophils % 0.1 %; Hematocrit 40.4 % (37.0-47.0); Hemoglobin 12.6 g/dL (11.5-15.3); Lymphocytes # 1.5 10^3/uL (0.8-4.8); Lymphocytes % 9.2 %; Mean Corpuscular HGB Conc 31.2 g/dL (30.0-36.0); Mean Corpuscular Hemoglobin 31.3 pg (28.0-34.0); Mean Corpuscular Volume 100.5 fl (81-99); Mean Platelet Volume 9.5 fL (7.4-10.4); Monocytes % 6.2 %; Neutrophils # 13.96 10^3/uL (1.8-7.7); Neutrophils % 83.7 %; Nucleated Red Blood Cells % 0 %; Platelet Count 350 10^3/cmm (130-400); Red Blood Count 4.02 10^6/uL (4.1-5.3); Red Cell Distribution Width 13.2 % (12.1-15.1); White Blood Count 16.7 10^3/uL (4.0-10.0)
[2022-01-24 09:24] LABS: Alanine Aminotransferase < 5 U/L (0-33); Albumin Level 3.4 g/dL (3.5-5.2); Alkaline Phosphatase 60 IU/L (35-105); Anion Gap 11.2 (5-19); Aspartate Amino Transferase 12 U/L (0-32); Blood Urea Nitrogen 13 mg/dL (8-23); Calcium 9.6 mg/dL (8.5-10.5); Carbon Dioxide 31 mmol/L (22-29); Chloride 107 mmol/L (98-107); Cholesterol 108 mg/dL (0-200); Globulin 2.1 g/dL (1.3-4.6); Glucose 167 mg/dL (65-115); HDL Cholesterol 30 mg/dL (60-100); LDL Cholesterol Calculated 53 mg/dL (50-129); Osmolality Calculated 304 mOsm/kg (285-295); Potassium 4.2 mmol/L (3.5-5.1); Sodium 145 mmol/L (136-145); Total Bilirubin 0.2 mg/dL (0.15-1.2); Total Protein 5.5 g/dL (6.6-8.7); Triglycerides 126 mg/dL (0-150); VLDL Cholestrol Calculation 25 mg/dL (0-30)
[2022-01-24 09:26] LABS: Creatinine Clr Calc Pharmacy 61.1934
--- NOTE | 2022-01-24 09:34 | PC.CHAP ---
Pastoral Care Encounter/Spiritual Assessment Type of Contact [] Declined fibre optics jointer visit [] Patient/Family/Request visit [] Outpatient visit [] Follow-up visit [] Physician referral [] Code/Alert [x] Routine visit [] Staff referral [] Actively dying [] Patient sleeping [] Family support [] [] Out of room [] Palliative care [] [x] Receiving care in room [] Pre-surgical visit [] Trauma [] Long length of stay [x] ICU visit [] Other: Relational/Emotional Strength [] Patient feels connected with others/family/visitors/staff [] Distress [] Loneliness/isolation [] Abandonment Spirituality of Patient [] Person of Karen [] Attends Restoration of their Karen [] Believes in Prayer [] Reads Bible or Baptist materials [] There are Spiritual issues to be addressed Credit Manager Interventions [x] Prayer [] Active listening [] Non-anxious presence [] Spiritual/emotional support [] Crisis/trauma care [] Spiritual counseling [] Bereavement support [] Provided bereavement packet [] Provided Bible/devotional materials [] Provided toy/stuffed animal, coloring book to patient or family member [] Provided Communion [] Anointing/Macy [] Salvation [x] Completed spiritual assessment [] Other: Impact on Illness or Injury [] Angry [] Fearful [] Anxious [] Often cries [] Exhaustion [] Unable to work [] Unable to attend yazidi [] Unable to walk/stand [] Unable to read [] Unable to drive [] Unable to eat/drink [] Unable to sleep [] Unable to be with family [] Patient intubated [] Other: Summary Time spent with patient
[2022-01-24] MEDS: lactulose oral liq 20 gm/30 mL UDC 30 GM PO (09:42)
--- NOTE | 2022-01-24 10:13 | ECG_ITS ---
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 Measurements Intervals [place] Rate: 58 P: 24 [place]: 191 QRS: 10 QRSD: 94 T: 44 QT: 430 QTc: 425 Interpretive Statements SINUS BRADYCARDIA LOW QRS VOLTAGE IN PRECORDIAL LEADS [QRS DEFLECTION < 1.0 mV IN CHEST LEADS] POSSIBLE ANTERIOR MYOCARDIAL INFARCTION , OF INDETERMINATE AGE [30 ms Q WAVE IN V3/V4, OR R < 0.2 mV IN V4] Compared to ECG 01/23/2022 14:24:10 Low QRS voltage now present Myocardial infarct finding now present Sinus rhythm no longer present First degree AV block no longer present Electronically Signed On 01-24-2022 18:57:08 CDT by Harsh Hernandez M.D. [id number]
[2022-01-24 10:44] LABS: Estmated Average Glucose 151; Hemoglobin A1C 6.9 % (4.0-6.0)
[2022-01-24 12:54] LABS: Magnesium 2.2 mg/dL (1.7-2.3)
--- NOTE | 2022-01-24 13:15 | ECG_ITS ---
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 Measurements Intervals [place] Rate: 64 P: 31 [place]: 188 QRS: 14 QRSD: 91 T: 63 QT: 407 QTc: 423 Interpretive Statements SINUS RHYTHM WITH SINUS ARRHYTHMIA NONSPECIFIC T-WAVE ABNORMALITY Compared to ECG 01/24/2022 10:13:43 T-wave abnormality now present Sinus bradycardia no longer present Myocardial infarct finding no longer present Electronically Signed On 01-24-2022 19:01:01 CDT by Harsh Hernandez M.D. [id number]
--- NOTE | 2022-01-24 13:51 | P.PN_ITS ---
Subjective Subjective: No acute events overnight. Patient's heart rate back remained stable. On examination seen sitting up in chair. States breathing is little better than yesterday. Currently on 5 L. Denies any nausea, vomiting, headache. Denies any chest pain. Complaining of lower abdominal pain. Vitals/I&O/Wt Last Vital Signs Temp 97.8 F 01/24/22 04:00 Pulse 65 01/24/22 13:00 Resp 31 H 01/24/22 13:00 BP 125/64 01/24/22 13:00 Pulse Ox 93 01/24/22 13:00 O2 Del Method 01/24/22 08:13 O2 Flow Rate 3 01/24/22 08:13 01/23/22 01/24/22 01/24/22 22:59 06:59 14:59 Intake Total 480 / 1015.859 360 / 360 Output Total 50 / 50 0 / 50 1075 / 1075 Balance 430 / 965.859 0 / 965.859 -715 / -715 Weight last 48 hrs Weight 104.462 kg Weight 108.862 kg Physical Exam Narrative: General: Alert oriented x3, patient seen sitting up in bed on 3 L nasal cannula, HEENT: Normocephalic, atraumatic, EOMI, breathing normally, no acute distress. Cardio: Irregularly irregular, tachycardic normal S1-S2, Respiratory: Diffuse rhonchi throughout lung bullock with bibasilar crackles GI: Abdomen soft, nontender, nondistended, bowel sounds + Behavior: Appropriate and cooperative Extremities: 3+ pitting edema up to knees bilaterally Data : 01/24/22 08:30 01/24/22 08:30 Micro: Microbiology 01/23/22 20:40 Bacterial Antigens - Final Urine Kidney 01/23/22 20:40 Legionella Urinary Antigen - Final Urine,Clean Catch A&P Assessment and plan (1) Atrial fibrillation with rapid ventricular response: Status: Acute (2) Right heart failure: Status: Acute (3) T2DM (type 2 diabetes mellitus): Status: Acute (4) COPD (chronic obstructive pulmonary disease): Status: Acute (5) HTN (hypertension) with goal to be determined: Status: Acute (6) Chronic anticoagulation: Status: Acute Plan #Atrial fibrillation with RVR: Continue with dofetilide 250 mg twice daily QTC remained stable. Bradycardia overnight so we will hold off on metoprolol. Monitor EKG after each dose of dofetilide for QTC prolongation. Continue with home dose of Xarelto for anticoagulation. Last echocardiogram done in December 2021 shows an EF of 62% with slightly decreased right ventricular systolic function and right ventricular dilatation. Appreciate cardiology recommendations. #Acute on chronic COPD exacerbation: Very mild exacerbation. Continue prednisone 40 mg oral daily to finish a 5-day course. Switch to ipratropium and Xopenex every 6 hour. Start on budesonide twice daily. Oxygen supplementation keeping saturation over 88%. Restart IV Lasix [address] chest to rule out pneumonia. #Right-sided heart failure: Currently compensated. Restart IV Lasix 40 mg daily. Right lower quadrant abdominal pain: Complains of chronic constipation. Aggressive bowel regimen. Lactulose one-time dose, continue with senna Colace. CT abdomen pelvis to rule out renal calculi. Most likely patient need to follow-up with surgery as an outpatient for colonoscopy along with aggressive bowel regimen. #Hypertension #Type 2 diabetes mellitus #History of recent pneumonia 6 weeks. Restart home medications including Xanax. Analgesia: Home dose of hydrocodone 10 mg every 6 hour as needed Glycemic control: Not needed. Check A1c. Nutrition: Cardiac diet CODE STATUS: Full code PUD prophylaxis: Protonix DVT prophylaxis: Xarelto Discharge planning: Plan to discharge home with caregiver once medically stable. Transfer to CSU. This documentation was created by [employer] market relationship manager software. Every effort was made to ensure accuracy of market relationship manager. Any obvious errors or omissions should be clarified with the author of the document. Attestations Medical Necessity Statement*: Requires further hospitalization for management of atrial fibrillation with rapid ventricular response while dose of dofetilide is increased while monitoring QTC Time Spent in Patient Care: Greater than 35 minutes Coding Level of Care Code Acute Chief Of Service for [facility] Fwd Diagnoses Atrial fibrillation with rapid ventricular response I48.91 Right heart failure I50.810 T2DM (type 2 diabetes mellitus) E11.9 COPD (chronic obstructive pulmonary disease) J44.9 HTN (hypertension) with goal to be determined I10 Chronic anticoagulation Z79.01
[2022-01-24] MEDS: ondansetron 2 mg/ML SDV 2 mL 4 MG IVP (13:52)
--- NOTE | 2022-01-24 13:54 | CTR_ITS ---
PROCEDURE INFORMATION: Exam: CT Abdomen And Pelvis Without Contrast Exam date and time: 01/24/2022 4:50 PM Age: 71 years old Clinical indication: Pain; Other: Rlq; Additional info: Right lower quadrant pain TECHNIQUE: Imaging protocol: Computed tomography of the abdomen and pelvis without contrast. Radiation optimization: All CT scans at this facility use at least one of these dose optimization techniques: automated exposure control; mA and/or kV adjustment per patient size (includes targeted exams where dose is matched to clinical indication); or iterative reconstruction. COMPARISON: CT abdomen pelvis w con* [id number] 01/05/2022 10:49 PM RADIATION DOSE METRICS: Total DLP (mGy-cm): 949.27 FINDINGS: Lungs: There is subsegmental atelectasis in the lung bases. Liver: The liver is normal. Gallbladder and bile ducts: The gallbladder is absent. There is gas in the mildly dilated common bile duct and central intrahepatic ducts consistent with prior sphincterotomy. Pancreas: There is mild atrophy of the pancreas. Spleen: The spleen is unremarkable. Adrenal glands: The adrenal glands are unremarkable. Kidneys and ureters: There are nonobstructive stones in the left kidney. No hydronephrosis or ureteral dilation. 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 Stomach and bowel: The stomach is decompressed, preventing meaningful evaluation of wall thickness. The small bowel is nondilated. There is moderate distal descending and sigmoid colonic diverticulosis without evidence of diverticulitis. Appendix: The appendix is normal. Intraperitoneal space: There is no intraperitoneal free air. Vasculature: There is severe aortic atherosclerotic disease. Lymph nodes: There is no lymphadenopathy in the retroperitoneum, mesentery, pelvis or inguinal regions. Urinary bladder: The urinary bladder is decompressed, preventing meaningful evaluation of wall thickness. Reproductive: The uterus is absent. There is no adnexal mass or large cyst. Bones/joints: There is mild degenerative disease in the lumbar spine. The pelvis and hips are unremarkable. Soft tissues: The abdominal wall is intact. CT/CT abdomen pelvis wo con [id number] IMPRESSION: 1. No acute findings. 2. Incidental findings above.
[2022-01-24] MEDS: HYDROcodone-acetaminophen 10-325 mg Tablet 1 TAB PO (14:40)
[2022-01-24] MEDS: sennosides-docusate Tablet 1 TAB PO (17:19)
[2022-01-24] MEDS: montelukast sodium 10 mg Tablet PO (20:24)
--- NOTE | 2022-01-24 22:27 | ECG_ITS ---
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 Measurements Intervals [place] Rate: 53 P: 58 [place]: 198 QRS: 12 QRSD: 98 T: 49 QT: 448 QTc: 421 Interpretive Statements SINUS BRADYCARDIA NONSPECIFIC T-WAVE ABNORMALITY Compared to ECG 01/24/2022 14:20:04 Sinus rhythm no longer present Sinus arrhythmia no longer present T-wave abnormality still present Electronically Signed On 01-24-2022 23:33:10 CDT by Harsh Hernandez M.D. [id number]
[2022-01-25] VITALS (45 sets, daily range): BP systolic 100–181; BP diastolic 52–93; PULSE 41–77; RESP 10–24; TEMP 36.8–36.9; O2SAT 77–97
--- NOTE | 2022-01-25 01:30 | PC.NURSE ---
Pt. is sinus bradycardic without symptoms. No needs or complaints expressed at this time.
[2022-01-25 05:41] LABS: Alanine Aminotransferase < 5 U/L (0-33); Albumin Level 3.1 g/dL (3.5-5.2); Alkaline Phosphatase 61 IU/L (35-105); Anion Gap 10.7 (5-19); Aspartate Amino Transferase 10 U/L (0-32); Blood Urea Nitrogen 16 mg/dL (8-23); Calcium 9.1 mg/dL (8.5-10.5); Carbon Dioxide 32 mmol/L (22-29); Chloride 102 mmol/L (98-107); Globulin 2.1 g/dL (1.3-4.6); Glucose 172 mg/dL (65-115); Osmolality Calculated 297 mOsm/kg (285-295); Potassium 3.7 mmol/L (3.5-5.1); Sodium 141 mmol/L (136-145); Total Bilirubin 0.2 mg/dL (0.15-1.2); Total Protein 5.2 g/dL (6.6-8.7)
[2022-01-25 05:45] LABS: Creatinine Clr Calc Pharmacy 61.1934
[2022-01-25] MEDS: levalbuterol 0.63 mg/3 mL Neb INHALATION (07:46)
[2022-01-25] MEDS: ipratropium 0.5 mg/2.5 mL Neb INHALATION (07:46)
[2022-01-25] MEDS: budesonide 0.5 mg/2 mL Neb INHALATION (07:47)
[2022-01-25] MEDS: ALPRAZolam 0.5 mg Tablet PO (09:18)
[2022-01-25] MEDS: pantoprazole DR 40 mg Tablet PO (09:19)
[2022-01-25] MEDS: sennosides-docusate Tablet 1 TAB PO (09:19)
[2022-01-25] MEDS: ferrous gluconate 324 mg Tablet PO (09:20)
[2022-01-25] MEDS: predniSONE 20 mg Tablet 40 MG PO (09:20)
[2022-01-25] MEDS: atorvastatin 40 mg Tablet 80 MG PO (09:21)
--- NOTE | 2022-01-25 09:21 | P.DS_ITS ---
Discharge Providers Date of Admission: 01/22/22 20:22 Date of Discharge: January 25, 2022 Attending Provider at Admission: Jennie Mata MD Attending Provider at Discharge: Nathaniel Sam MD Consults: Cardiology: Dr. Cabezas/Dr. Fall Diagnoses at Discharge Discharge Diagnosis (1) Atrial fibrillation with rapid ventricular response: Status: Acute (2) Acute diastolic heart failure: Status: Acute (3) T2DM (type 2 diabetes mellitus): Status: Acute (4) COPD (chronic obstructive pulmonary disease): Status: Acute Reason for Visit Reason for Visit: possible AFIB Hospital Course Hospital Course Rebeca Álvarez is a 71 year old female is admitted to hospital through the emergency room where she presented with complaints of palpitation and generalized weakness with shortness of breath.? This patient is known to have chronic intermittent atrial fibrillation.? She was recently discharged from the hospital eventually admitted with atrial fibrillation rapid ventricular rate.? She was placed back on the medicine that she been taking namely Tikosyn 125 mg p.o. twice daily and metoprolol 12.5 mg p.o. twice daily.? Currently patient, malick cobb was doing okay for a week or so.? For the last 5 or 6 days, she been having episodes of palpitation associated with weakness.? No syncopal episodes.? She has no chest pain.? No fever, chills or cough.? She also has some shortness of breath.? She has a history of COPD with intermittent exacerbation. She used to be followed by a copy director in [place].? Apparently she was tried on multiple antiarrhythmic drugs.? We do not have the list of medication that was tried in the past.? However patient recalls Betapace and flecainide.? She could not take the flecainide.? The Betapace also was tried but did not work, according to the patient.? Whether she was on a higher dose of Tikosyn or not prior to the current dose is also not known.? She has been taking the Tikosyn 125 mg p.o. twice daily, as mentioned above. Recently she was admitted to hospital in [place] with a COPD exacerbation.? The home appliance technician started her on bisoprolol and short of the metoprolol.? Her most recent hospital admission he had at the [facility] was thought to be because of this medication change.? So we placed her back on the metoprolol during that admission.? She has a history of syncopal episodes prior to the last hospital admission.? Has not had any syncope since the last hospital discharge. She had chemical stress test few years ago and was told to be okay.? No history for coronary artery disease or myocardial infarction.? No history for any heart failure.? She was recently diagnosed with diabetes.? She started taking insulin couple of months ago.? No history of? hypertension or dyslipidemia.? He has been taking prednisone for arthritis off and on.? Apparently this was giving her some relief of symptoms. She is into the hospital further evaluation and management. She was initially admitted to the ICU. She was started on Cardizem drip which was later stopped as patient transiently developed hypotension for which she required Levophed for 2 to 3 hours. Later after stopping Cardizem patient was loaded with dofetilide 500 mg. Her dose of dofetilide was increased to 250 mg twice daily while QTC was closely monitored. Since loading of dofetilide patient has remained in normal sinus rhythm. There was a concern of COPD exacerbation admission for which she was on IV steroids which was slowly weaned down. Overall patient's hospitalization was unremarkable and she responded well to the treatment. Patient was also complaining of chronic constipation and right side. Lower abdominal pain for which she was treated with aggressive bowel regimen. CT abdomen pelvis was done which was negative for any acute abnormality. She has been discharged in hemodynamically stable condition advised to follow-up with cardiology within next 2 weeks, she is advised to check her heart rate regularly at home and if her morning heart rates are below 50 she is to contact the cardiology services or come to the ER. She is advised to change her position from laying to sitting to standing gradually. She is also advised to follow-up with surgery within next 1 month for continuous chronic lower abdominal pain with the possibility of colonoscopy. New primary care provider appointment has been made for her. Physical Exam Narrative: General: Alert oriented x3, patient seen sitting up in bed on 2 L nasal cannula, HEENT: Normocephalic, atraumatic, EOMI, breathing normally, no acute distress. Cardio: Irregularly irregular, tachycardic normal S1-S2, Respiratory: Diffuse rhonchi throughout lung bullock with bibasilar crackles GI: Abdomen soft, nontender, nondistended, bowel sounds + Behavior: Appropriate and cooperative Extremities: 3+ pitting edema up to knees bilaterally Discharge Data Studies Completed and Pending Completed Studies During Hospitalization Category Date Time Status CT abdomen pelvis wo con [id number] Routine Cat Scan 01/24/22 13:[address] chest wo con [id number] Routine Cat Scan 01/24/22 07:04 Completed XR chest 1V portable [id number] Stat Exams 01/22/22 17:44 Completed XR chest 1V portable [id number] Stat Exams 01/23/22 03:56 Completed Pending at discharge Category Date Time Status Sputum Culture and Gram Stain Stat Lab 01/22/22 21:05 Uncollected Radiology Impressions Chest X-Ray 01/23/22 03:56 IMPRESSION: Right-sided central venous line noted with the distal tip in the region of the lower SVC. Chest CT 01/24/22 07:04 IMPRESSION: 1. Minimal subsegmental atelectasis at the lung bases. 2. No pneumonia or pneumothorax. 3. Mild cardiomegaly. 4. Prior cholecystectomy. Pneumobilia. 5. Centrilobular emphysema. Abdomen/Pelvis CT 01/24/22 13:54 IMPRESSION: 1. No acute findings. 2. Incidental findings above. Laboratory Results WBC 16.7 10^3/uL (4.0-10.0) H 01/24/22 08:30 RBC 4.02 10^6/uL (4.1-5.3) L 01/24/22 08:30 Hgb 12.6 g/dL (11.5-15.3) 01/24/22 08:30 Hct 40.4 % (37.0-47.0) 01/24/22 08:30 MCV 100.5 fl (81-99) H 01/24/22 08:30 MCH 31.3 pg (28.0-34.0) 01/24/22 08:30 MCHC 31.2 g/dL (30.0-36.0) 01/24/22 08:30 RDW 13.2 % (12.1-15.1) 01/24/22 08:30 Plt Count 350 10^3/cmm (130-400) 01/24/22 08:30 MPV 9.5 fL (7.4-10.4) 01/24/22 08:30 Neut % (Auto) 83.7 % 01/24/22 08:30 Lymph % (Auto) 9.2 % 01/24/22 08:30 [place] % (Auto) 6.2 % 01/24/22 08:30 Eos % (Auto) 0.0 % 01/24/22 08:30 Baso % (Auto) 0.1 % 01/24/22 08:30 Neut # (Auto) 13.96 10^3/uL (1.8-7.7) H 01/24/22 08:30 Lymph # (Auto) 1.5 10^3/uL (0.8-4.8) 01/24/22 08:30 [place] # (Auto) 1.0 10^3/uL (0.2-0.9) H 01/24/22 08:30 Eos # (Auto) 0.0 10^3/uL (0.0-0.8) 01/24/22 08:30 Baso # (Auto) 0.0 10^3/uL (0.0-0.1) 01/24/22 08:30 Nucleated RBC % (auto) 0 % 01/24/22 08:30 Nucleated RBCs # 0.0 /100WBC 01/24/22 08:30 PT 15.50 SECONDS (12.1-14.9) H 01/22/22 17:50 INR 1.20 (0.8-1.2) 01/22/22 17:50 D-Dimer 1.63 ug/mIFEU (0-0.59) H 01/23/22 10:19 Sodium 141 mmol/L (136-145) 01/25/22 04:46 Potassium 3.7 mmol/L (3.5-5.1) 01/25/22 04:46 Chloride 102 mmol/L (98-107) 01/25/22 04:46 Carbon Dioxide 32 mmol/L (22-29) H 01/25/22 04:46 Anion Gap 10.7 (5-19) 01/25/22 04:46 BUN 16 mg/dL (8-23) 01/25/22 04:46 Creatinine 1.0 mg/dL (0.5-0.9) H 01/25/22 04:46 GFR Calculation Not Reportable 01/25/22 04:46 Glucose 172 mg/dL (65-115) H 01/25/22 04:46 Estimat Average Glucose 151 01/24/22 08:30 Hemoglobin A1c 6.9 % (4.0-6.0) H 01/24/22 08:30 Calculated Osmolality 297 mOsm/kg (285-295) H 01/25/22 04:46 Lactic Acid 1.6 mmol/L (0.5-2.2) 01/22/22 17:50 Calcium 9.1 mg/dL (8.5-10.5) 01/25/22 04:46 Magnesium 2.2 mg/dL (1.7-2.3) 01/24/22 08:30 Iron 42 ug/dL (37-145) 01/23/22 10:19 TIBC 286 mcg/dl 01/23/22 10:19 % Saturation 14.6 % (20-50) L 01/23/22 10:19 Unsat Iron Binding 244 ug/dL (112-347) 01/23/22 10:19 Total Bilirubin 0.2 mg/dL (0.15-1.2) 01/25/22 04:46 AST 10 U/L (0-32) 01/25/22 04:46 ALT < 5 U/L (0-33) 01/25/22 04:46 Alkaline Phosphatase 61 IU/L (35-105) 01/25/22 04:46 Troponin T Baseline 48 ng/L (0-10) H 01/22/22 17:50 Troponin T 120 Minute 40.69 ng/L (0-10) H 01/22/22 19:40 Delta Troponin T -7.31 ABS# (0-10) L 01/22/22 19:40 Troponin T Hi Sens 6Hr 42.10 ng/L (0-10) H 01/22/22 22:53 Troponin T Hi Sens 6Hr Delta -5.90 ng/L (0-12) L 01/22/22 22:53 NT-Pro-B Natriuret Pep 3448 pg/mL (0-125) H 01/23/22 10:19 Total Protein 5.2 g/dL (6.6-8.7) L 01/25/22 04:46 Albumin 3.1 g/dL (3.5-5.2) L 01/25/22 04:46 Globulin 2.1 g/dL (1.3-4.6) 01/25/22 04:46 Triglycerides 126 mg/dL (0-150) 01/24/22 08:30 Cholesterol 108 mg/dL (0-200) 01/24/22 08:30 LDL Cholesterol, Calc 53 mg/dL (50-129) 01/24/22 08:30 Total VLDL Cholesterol 25 mg/dL (0-30) 01/24/22 08:30 HDL Cholesterol 30 mg/dL (60-100) L 01/24/22 08:30 Cholesterol/HDL Ratio 3.60 mg/dL (0.0-4.40) 01/24/22 08:30 Vitamin B12 789 pg/mL (232-1245) 01/23/22 10:19 Folate 15.1 ng/mL (4.8-37.3) 01/23/22 10:19 Procalcitonin 0.05 ng/mL (0-0.5) 01/22/22 19:40 TSH 0.77 uIU/mL (0.27-4.20) 01/22/22 19:40 TSH Cancelled 01/22/22 19:40 Urine Color Yellow (Yellow) 01/23/22 20:40 Urine Appearance Clear (CLEAR) 01/23/22 20:40 Urine pH 5 (5-7) 01/23/22 20:40 Ur Specific [place] 1.020 (1.005-1.030) 01/23/22 20:40 Urine Protein Trace (Negative) 01/23/22 20:40 Urine Glucose (UA) 2+ (Normal) H 01/23/22 20:40 Urine Ketones Negative (Negative) 01/23/22 20:40 Urine Blood Neg (Negative) 01/23/22 20:40 Urine Nitrate Negative (Negative) 01/23/22 20:40 Urine Bilirubin Neg (Negative) 01/23/22 20:40 Urine Urobilinogen Norm mg/dL (Negative) 01/23/22 20:40 Ur Leukocyte Esterase Negative (Negative) 01/23/22 20:40 Urine RBC 0-4 /hpf (0-2) H 01/23/22 20:40 Urine WBC 25-40 /hpf (0-5) H 01/23/22 20:40 Ur Squamous Epith Cells 25-40 /hpf (0-5) H 01/23/22 20:40 Amorphous Sediment Not Reportable 01/23/22 20:40 Urine Bacteria 4+ /hpf (NONE) H 01/23/22 20:40 Urine Mucus 3+ /hpf 01/23/22 20:40 Vitals Last Vital Signs Temp 98.4 F 01/25/22 03:25 Pulse 58 L 01/25/22 07:57 Resp 16 01/25/22 07:57 BP 127/65 01/25/22 05:00 Pulse Ox 97 01/25/22 07:57 O2 Del Method 01/25/22 07:57 O2 Flow Rate 2 01/25/22 07:57 Discharge Plan Discharge Patient Disposition: Home Condition: Stable Prescriptions: New prednisone 20 mg Tablet 40 mg PO DAILY Qty: 10 0RF Stool Softener-Laxative 8.6-50 mg Tablet 1 tab PO BID Qty: 60 0RF pantoprazole 40 mg Tablet,Delayed Release (Dr/Ec) 40 mg PO DAILY Qty: 14 0RF lactulose 10 gram/15 mL solution 10 g PO DAILY PRN (Reason: constipation) Qty: 237 0RF Continued Lasix 40 mg Tablet 40 mg PO BID 30 Days Qty: 60 0RF hydrocodone-acetaminophen 10-325 mg Tablet 1 tab PO Q6H PRN (Reason: Pain) Qty: 14 0RF Klor-Con M20 20 mEq Tablet,Er Particles/Crystals 40 meq PO DAILY 30 Days Qty: 30 0RF montelukast 10 mg Tablet 1 mg PO BEDTIME Qty: 30 0RF zolpidem 10 mg Tablet 10 mg PO BEDTIME Qty: 30 0RF rosuvastatin 20 mg Tablet 20 mg PO DAILY 30 Days Qty: 30 0RF Xarelto 15 mg Tablet 15 mg PO DAILY Qty: 30 0RF Rx Instructions: must administer with evening meal Changed alprazolam 1 mg Tablet 0.5 mg PO BID 14 Days Qty: 14 0RF dofetilide 125 mcg capsule 250 mcg PO BID 30 Days Qty: 120 0RF Discontinued metoprolol tartrate 25 mg Tablet 12.5 mg PO BID@0900,2100 30 Days Qty: 60 3RF Discharge Orders: Discharge Order (Routine); Ordered 01/25/22 Ordered By: Nathaniel Sam Referrals: Carrie Olguin FNP [Nurse Practitioner] - (New patient /hospital visit please bring bottles of medication in with you. February 02, 2022 . time of 3:00 pm ) Louie Joiner MD [Physician] - 1 month (Chronic abdominal pain This appointment [facility] office [facility] - February 23, 2022 at 2:20 pm ) Lis Hopkins FNP [Nurse Practitioner] - 01/31/22 12:45 pm (Follow up with Amy VIEIRA on January 31 at 12:45pm. ) Massiel Cabezas MD [Physician] - 1 month Discharge Diet: Regular Discharge Activity: Resume usual activity and Increase activity as tolerated Patient Instructions: Prednisone (By mouth), Lactulose (By mouth), Pantoprazole (By mouth), A-fib (Atrial Fibrillation) (DC), COPD (Chronic Obstructive Pulmonary Disease) (DC), COPD Stoplight, Opioid Safety Activity Restrictions/Additional Instructions: Please do not take metoprolol anymore. Your dose of dofetilide has been increased to 250 mg twice daily. Please follow-up with cardiology on set appointment on January 31. Please continue to monitor your heart rate at home. If it drops below 50 during the morning please report to cardiology office or come to the ER. Please change positions from laying to sitting to standing gradually. Discharge Attestations Time Spent in Discharge Care*: greater than 30 min Specific Discharge Activities: educating patient, discussing with pcp/other providers, discussing with registered nurse hh case manager/social workers/dc planners, documenting/other paperwork and evaluating patient/reviewing data Status at Discharge: Cognitive status at discharge: cognitively intact , Behavioral status at discharge: cooperative , Functional status at discharge: independent ambulation , Overall status at discharge: patient is back to baseline Quality Metrics Clinical Quality Measures [ No reported AMI, CVA or VTE this stay] Coding Level of Care Code Acute Chg FW DC note History Comprehensive Exam Comprehensive Medical Decision Making High Complexity Diagnoses Atrial fibrillation with rapid ventricular response I48.91 Acute diastolic heart failure I50.31 T2DM (type 2 diabetes mellitus) E11.9 COPD (chronic obstructive pulmonary disease) J44.9
[2022-01-25] MEDS: FUROsemide 10 mg/mL SDV 4mL 40 MG IVP (09:22)
[2022-01-25] MEDS: azithromycin 250 mg Tablet PO (09:22)
[2022-01-25] MEDS: rivaroxaban 10 mg Tablet 15 MG PO (09:27)
[2022-01-25] MEDS: DOFETILIDE 250 MCG 250 EACH PO (09:34)
--- NOTE | 2022-01-25 11:04 | ECG_ITS ---
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 Measurements Intervals [place] Rate: 55 P: 47 ME: 183 QRS: 15 QRSD: 93 T: 41 QT: 455 QTc: 437 Interpretive Statements SINUS BRADYCARDIA MODERATE T-WAVE ABNORMALITY, CONSIDER ANTERIOR ISCHEMIA [-0.1+ mV T-WAVE IN V3/V4] Compared to ECG 01/24/2022 22:27:59 Possible ischemia now present T-wave abnormality still present Electronically Signed On 01-26-2022 19:06:34 CDT by Diandra Fall M.D. [id number]
--- NOTE | 2022-01-25 11:47 | PC.SOCIAL ---
Pg 2 IMM. Explained to pt Pg 2 IMM. No questions voiced. Provided pt a copy. Initialed, dated & timed a copy & placed in chart.
--- NOTE | 2022-01-25 13:44 | PC.NURSE ---
NUrse discharged patient. New prescriptions sent to [facility]. upcoming appointment, activity, and new medication education provided. patient signature form signed. Patient taken out to vehicle wia wheelchair where spouse was waiting. patient changed over to home o2 concentrator.
--- NOTE | 2022-01-25 16:17 | PM.PN ---
Subjective Subjective: She feels well and has maintained SR. EKG's and tele reviewed. Medications: Reviewed: Yes Vitals/I&O/Wt Last Vital Signs Temp 98.2 F 01/25/22 13:37 Pulse 57 L 01/25/22 13:37 Resp 18 01/25/22 13:37 BP 134/75 01/25/22 13:37 Pulse Ox 94 01/25/22 13:37 O2 Del Method 01/25/22 07:57 O2 Flow Rate 2 01/25/22 07:57 01/25/22 01/25/22 01/25/22 06:59 14:59 22:59 Intake Total 120 / 120 Output Total 300 / 300 Balance -180 / -180 Physical Exam Narrative: GENERAL: obese woman sitting in bed in no acute distress HEENT: Extraocular movement intact. No pallor or icterus. NECK: No JVD, No carotid bruit. CARDIOVASCULAR SYSTEM: S1-S2 regular. No S3 or S4 present. No murmur rubs or gallops. RESPIRATORY SYSTEM: Chest clear to auscultation. No wheezes rhonchi or rubs heard. No use of accessory muscles. ABDOMEN: Soft, nontender and nondistended. Normal bowel sounds present. EXTREMITIES: No cyanosis or edema. No signs of chronic venous insufficiency. MATERIAL CLERK: Patient is alert oriented ?3. No focal neurological deficits. SKIN: Normal turgor and temperature. PSYCH: Normal insight and judgment. Data : 01/24/22 08:30 01/25/22 04:46 A&P Assessment and plan (1) Atrial fibrillation with rapid ventricular response: Patient was started on amiodarone patient was started on amiodarone day before yesterday. Her QTC is within normal limits. -Since the hospital does not have the Tikosyn , her son brought the medicine, -She recieved loading dose of Tikosyn 500 mcg f/b 250 mcg -EKG and telemetry reviewed -continue with Tikosyn 250 mcg twice a day -EKG 2 hour after each dose of Tikosyn -f/u with Lis in 1-[address] Kaplan in 8 weeks. Status: Acute (2) Acute diastolic heart failure: May be treated carefully with the diuretics. Status: Acute (3) T2DM (type 2 diabetes mellitus): May continue on the current medications. Status: Acute (4) COPD (chronic obstructive pulmonary disease): Treatment as per primary team Status: Acute Plan Thank you for the opportunity to eval this patient and make these recommendations Attestations Medical Necessity Statement*: stable to be diachrged Coding Level of Care Code Acute Block Making Machine Operator for Emely Fwd Diagnoses Atrial fibrillation with rapid ventricular response I48.91 Acute diastolic heart failure I50.31 T2DM (type 2 diabetes mellitus) E11.9 COPD (chronic obstructive pulmonary disease) J44.9
== END 2022-01-25 13:47 | disposition home or self-care (01) | DRG 308 ==
LOC: ER 17:59 → ICU 20:36
PROVIDERS: Family Medicine; Internal Medicine Cardiovascular Disease; Admitting Provider Internal Medicine; Emergency Provider Emergency Medicine; Visit Provider Student in an Organized Health Care Education/Training Program
DX: I48.20 Chronic atrial fibrillation, unspecified (principal); I50.33 Acute on chronic diastolic (congestive) heart failure; J44.1 Chronic obstructive pulmonary disease with (acute) exacerbation; I11.0 Hypertensive heart disease with heart failure; E11.9 Type 2 diabetes mellitus without complications; F17.200 Nicotine dependence, unspecified, uncomplicated; Z87.01 Personal history of pneumonia (recurrent); K59.09 Other constipation; Z79.01 Long term (current) use of anticoagulants; I95.9 Hypotension, unspecified
CPT/HCPCS: 36415; 36416; 36556; 36600; 71045; 71250; 71275; 74176; 80051; 80053; 80061; 81001; 81003; 82330; 82607; 82746; 82805; 82962; 83036; 83540; 83550; 83605; 83735; 83880; 84100; 84145; 84439; 84443; 84484; 85025; 85378; 85610; 86140; 86403; 87449; 87635; 90471; 90732; 93005; 93970; 94640; 94664; 96365; 96366; 96372; 96374; 96375; 97165; 99285; 99291; J0282; J0456; J1160; J1815; J1940; J2405; J2930; J3475; J3490; J7040; J7050; J7060; J7512; J7614; J7626; J7644; Q0144; Q9967

== ENCOUNTER 2022-01-28 17:03 | Inpatient (IN) | payer MEDICARE, SELFPAY ==
--- NOTE | 2022-01-28 17:17 | XRR_ITS ---
PROCEDURE INFORMATION: Exam: XR Chest Exam date and time: 01/28/2022 5:24 PM Age: 71 years old Clinical indication: Shortness of breath; Additional info: SOB TECHNIQUE: Imaging protocol: Radiologic exam of the chest. Views: 1 view. COMPARISON: CT chest con [id number] 01/24/2022 11:00 AM FINDINGS: Lungs: There is no consolidation. Pleural spaces: There is no pleural effusion or pneumothorax. Heart/Mediastinum: There is moderate enlargement of the cardiac silhouette. Bones/joints: Bones are unremarkable. XR/XR chest 1V portable [id number] IMPRESSION: No acute findings.
--- NOTE | 2022-01-28 17:17 | ECG_ITS ---
[facility] Test Date: 2022-01-28 Pat Name: Rebeca Álvarez Department: Room: Gender: Female Admissions Officer: : 1950 Requested By: Roya Bautista Order Number: [id number] Mohamud MD: Harsh Hernandez M.D. Measurements Intervals [place] Rate: 143 P: [place]: QRS: 17 QRSD: 88 T: -6 QT: 338 QTc: 522 Interpretive Statements ATRIAL FIBRILLATION WITH RVR MODERATE ST DEPRESSION [0.05+ mV ST DEPRESSION] Compared to ECG 01/25/2022 11:04:34 ST (T wave) deviation now present Sinus bradycardia no longer present T-wave abnormality no longer present Possible ischemia no longer present Electronically Signed On 01-28-2022 20:30:49 CDT by Harsh Hernandez M.D. [email or web address] regional medical centerSungy Mobilewilson [facility] hospital.[email or web address] [employer]/store/NU/[id number]
[2022-01-28 17:24] VITALS: BP 130/78; PULSE 102; RESP 16; TEMP 36.6; O2SAT 97
--- NOTE | 2022-01-28 17:33 | W.ED.GENADLT ---
HPI - General Adult General: Chief complaint: Arrhythmia/Palpitations Stated complaint: AFIB need 02 Time Seen by Provider: 01/28/22 17:27 History of Present Illness: Patient is a 71-year-old female history of atrial fibrillation on dofetilide, COPD on 3L of NC presented to the emergency room with complaint generalized aches, increased fatigue, and abdominal pressure. In terms of her abdominal pressure, patient reports that it radiates from the RUQ to the midepigastric area.the abdominal pressure is not worse with p.o. intake or exertion. Patient denies any pleuritic chest pain, or active chest pain currently. Patient tells me that she was seen and admitted to the hospital for atrial fibrillation and CHF exacerbation on 01/23/2022. Since her discharge, patient is feeling increasingly more fatigued in the last few days. Patient denies any fever/chills, cough, runny nose sore throat. Patient also denies any abdominal pain, nausea/vomiting, diarrhea melena hematochezia. Patient has no complaints. Onset: 2 days ago Duration:2 days Location:home Severity:moderate Associated symptoms: Reports malaise; Deny chest pain, dyspnea, nausea, rash, palpitations or vomiting Review of Systems Const: Reports: malaise and other (+body aches); Denies: fever(s) or chills Eyes: Denies: change in vision ENMT: Denies: mouth pain Card: Denies: chest pain or palpitations Resp: Denies: dyspnea or non-productive cough GI: Reports: abdominal pain; Denies: nausea, vomiting or diarrhea : Denies: dysuria Musc: Denies: extremity pain Skin/Breast: Denies: rash or new lesions Neuro: Denies: weakness in extremities Psych: Reports: other (Normal mood) Mahesh/Lymph: Denies: easy bruising PFSH ED PFSH: Medical History Abdominal pain HERBER (acute kidney injury) Atrial fibrillation Atrial fibrillation Atrial fibrillation with rapid ventricular response COPD (chronic obstructive pulmonary disease) Dehydration History of syncope HTN (hypertension) with goal to be determined Hypokalemia T2DM (type 2 diabetes mellitus) Volume overload Surgical History Hx of cholecystectomy Social History Smoking and tobacco status: current every day smoker Alcohol intake: never Marital status: / Physical Exam Const: COMMON NORMALS: alert HENMT: COMMON NORMALS: atraumatic HEAD & SCALP: atraumatic MOUTH: moist mucous membranes not abnormal Eye: COMMON NORMALS: EOMs intact bilaterally and conjunctivae normal CONJUNCTIVA: Yes conjunctivae normal Neck/C-Spine: COMMON NORMALS: full ROM and supple Resp: COMMON NORMALS: normal respiratory effort and clear to auscultation bilaterally AUSCULTATION: clear to auscultation bilaterally Cardio: COMMON NORMALS: regular rate RATE: regular rate GI: COMMON NORMALS: Soft to palpation and non-tender PALPATION: Yes Soft to palpation Extremity: COMMON NORMALS: full ROM Neuro: SENSORIUM/ORIENTATION: Yes alert MOTOR EXAM: No Abnormal motor strength present and Other motor observations present (no focal motor deficits) Psych: COMMON NORMALS: speech normal SPEECH: Yes normal speech MOOD & AFFECT: Yes euthymic mood Course Vital Signs: Vital signs: Vital Signs Temperature 98 F 01/28/22 17:24 Pulse Rate 102 H 01/28/22 17:24 Respiratory Rate 16 01/28/22 17:24 Blood Pressure 130/78 01/28/22 17:24 Pulse Oximetry 97 01/28/22 17:24 Oxygen Delivery Me thod 01/28/22 17:24 Oxygen Flow Rate 3 01/28/22 17:24 MDM - General Adult Medical Decision Making 71-year-old female history atrial fibrillation presenting to the emergency room for concerns of generalized weakness and fatigue. On physical exam, patient was noted to be irregular irregular tachycardia. fitness specialist showed atrial fibrillation with heart rate between 1 98-1 30. Patient received multiple doses of diltiazem with improvement heart rate. Patient needs to be in the low 100s 120s. HERBER on CKD today Troponin similar to baseline. proBNP appears to similar to baseline. Patient is afebrile without a white count. Patient will be admitted to hospital for further work-up. Disposition: admission Lab Data : 01/28/22 17:45 01/28/22 17:45 Radiology Impressions Chest X-Ray 01/28/22 17:17 IMPRESSION: No acute findings. Laboratory Results WBC 10.1 10^3/uL (4.0-10.0) H 01/28/22 17:45 RBC 4.89 10^6/uL (4.1-5.3) 01/28/22 17:45 Hgb 15.0 g/dL (11.5-15.3) 01/28/22 17:45 Hct 47.8 % (37.0-47.0) H 01/28/22 17:45 MCV 97.8 fl (81-99) 01/28/22 17:45 MCH 30.7 pg (28.0-34.0) 01/28/22 17:45 MCHC 31.4 g/dL (30.0-36.0) 01/28/22 17:45 RDW 13.2 % (12.1-15.1) 01/28/22 17:45 Plt Count 336 10^3/cmm (130-400) 01/28/22 17:45 MPV 9.8 fL (7.4-10.4) 01/28/22 17:45 Neut % (Auto) 93.0 % 01/28/22 17:45 Lymph % (Auto) 5.8 % 01/28/22 17:45 [place] % (Auto) 0.8 % 01/28/22 17:45 Eos % (Auto) 0.0 % 01/28/22 17:45 Baso % (Auto) 0.1 % 01/28/22 17:45 Neut # (Auto) 9.39 10^3/uL (1.8-7.7) H 01/28/22 17:45 Lymph # (Auto) 0.6 10^3/uL (0.8-4.8) L 01/28/22 17:45 [place] # (Auto) 0.1 10^3/uL (0.2-0.9) L 01/28/22 17:45 Eos # (Auto) 0.0 10^3/uL (0.0-0.8) 01/28/22 17:45 Baso # (Auto) 0.0 10^3/uL (0.0-0.1) 01/28/22 17:45 Nucleated RBC % (auto) 0 % 01/28/22 17:45 Nucleated RBCs # 0.0 /100WBC 01/28/22 17:45 PT 15.00 SECONDS (12.1-14.9) H 01/28/22 17:45 INR 1.14 (0.8-1.2) 01/28/22 17:45 Specimen Type Arterial 01/28/22 17:55 Sample Site Radial, left 01/28/22 17:55 ABG pH 7.47 (7.35-7.45) H 01/28/22 17:55 ABG pCO2 42.9 mmHg (35-45) 01/28/22 17:55 ABG pO2 79.6 mmHg (80.0-100.0) L 01/28/22 17:55 ABG HCO3 31.0 mmol/L (22-26) H 01/28/22 17:55 ABG O2 Saturation 96.8 01/28/22 17:55 ABG Base Excess 6.4 mmol/L (-2.0-2.0) H 01/28/22 17:55 Jayden Test Pos 01/28/22 17:55 A-a O2 Gradient 12.4 mmHg (5-10) H 01/28/22 17:55 Hematocrit 46.1 % (37-47) 01/28/22 17:55 Hgb O2 Saturation 92.1 % (95-100) L 01/28/22 17:55 Carboxyhemoglobin 4.4 %THgb (0.4-20.1) 01/28/22 17:55 Methemoglobin 0.5 % (0.4-1.5) 01/28/22 17:55 Total Hemoglobin 15.0 g/dL (12-16) 01/28/22 17:55 Sodium 141.0 mmol/L (131-143) 01/28/22 17:55 Potassium 3.2 mmol/L (3.5-5.0) L 01/28/22 17:55 Glucose 226.0 mg/dL (70-115) H 01/28/22 17:55 Ionized Calcium 1.1 mmol/L (1.1-1.4) 01/28/22 17:55 O2 Delivery Device Nc 01/28/22 17:55 O2 Liters/Min 3.0 % 01/28/22 17:55 FiO2 32.0 % 01/28/22 17:55 Metal Bumper ID Ed 01/28/22 17:55 Sodium 141 mmol/L (136-145) 01/28/22 17:45 Potassium 3.7 mmol/L (3.5-5.1) 01/28/22 17:45 Chloride 95 mmol/L (98-107) L 01/28/22 17:45 Carbon Dioxide 29 mmol/L (22-29) 01/28/22 17:45 Anion Gap 20.7 (5-19) H 01/28/22 17:45 BUN 23 mg/dL (8-23) 01/28/22 17:45 Creatinine 1.5 mg/dL (0.5-0.9) H 01/28/22 17:45 GFR Calculation Not Reportable 01/28/22 17:45 Glucose 220 mg/dL (65-115) H 01/28/22 17:45 Calculated Osmolality 302 mOsm/kg (285-295) H 01/28/22 17:45 Calcium 9.1 mg/dL (8.5-10.5) 01/28/22 17:45 Total Bilirubin 0.6 mg/dL (0.15-1.2) 01/28/22 17:45 AST 18 U/L (0-32) 01/28/22 17:45 ALT 8 U/L (0-33) 01/28/22 17:45 Alkaline Phosphatase 74 IU/L (35-105) 01/28/22 17:45 Troponin T Baseline 31 ng/L (0-10) H 01/28/22 17:45 NT-Pro-B Natriuret Pep 1860 pg/mL (0-125) H 01/28/22 17:45 Total Protein 5.9 g/dL (6.6-8.7) L 01/28/22 17:45 Albumin 4.0 g/dL (3.5-5.2) 01/28/22 17:45 Globulin 1.9 g/dL (1.3-4.6) 01/28/22 17:45 TSH 0.27 uIU/mL (0.27-4.20) 01/28/22 17:45 Imaging Data Other Imaging: Radiologist's impression: [address] [address] XRay Report Signed Patient: Rebeca Álvarez Unit #: [id number] : 1950 Age/Sex: 71 / F ADM Date: 01/28/22 Loc: ER Room/Bed: Attending Dr: Ordering Provider/Ordering MD: Roay Bautista MD Date of Service: 01/28/22 Procedure(s): XR chest 1V portable [id number] Accession Number(s): [id number] Report Number: [id number] PROCEDURE INFORMATION: Exam: XR Chest Exam date and time: 01/28/2022 5:24 PM Age: 71 years old Clinical indication: Shortness of breath; Additional info: SOB TECHNIQUE: Imaging protocol: Radiologic exam of the chest. Views: 1 view. COMPARISON: CT chest wo con [id number] 01/24/2022 11:00 AM FINDINGS: Lungs: There is no consolidation. Pleural spaces: There is no pleural effusion or pneumothorax. Heart/Mediastinum: There is moderate enlargement of the cardiac silhouette. Bones/joints: Bones are unremarkable. XR/XR chest 1V portable [id number] IMPRESSION: No acute findings. ? Dictated By: Wojciech Masters MD Signed By: Wojciech Masters MD Signed Date/Time: 01/28/221758 DD/ 23 Discharge Plan Discharge Patient Disposition: Admitted As Inpatient Clinical Impression: Atrial fibrillation, Fatigue, Generalized weakness Condition: Stable Coding Level of Care Code ED Editorial Director for Chg Fwd Exam Comprehensive
[2022-01-28 17:55] LABS: Basophils % 0.1 %; Hematocrit 47.8 % (37.0-47.0); Lymphocytes # 0.6 10^3/uL (0.8-4.8); Lymphocytes % 5.8 %; Mean Corpuscular HGB Conc 31.4 g/dL (30.0-36.0); Mean Corpuscular Hemoglobin 30.7 pg (28.0-34.0); Mean Corpuscular Volume 97.8 fl (81-99); Mean Platelet Volume 9.8 fL (7.4-10.4); Monocytes # 0.1 10^3/uL (0.2-0.9); Monocytes % 0.8 %; Neutrophils # 9.39 10^3/uL (1.8-7.7); Nucleated Red Blood Cells % 0 %; Platelet Count 336 10^3/cmm (130-400); Red Blood Count 4.89 10^6/uL (4.1-5.3); Red Cell Distribution Width 13.2 % (12.1-15.1); White Blood Count 10.1 10^3/uL (4.0-10.0)
--- NOTE | 2022-01-28 18:00 | PC.NURSE ---
PT IS ON CONTINUOUS SPO2, NIBP, AND CM.
[2022-01-28 18:07] LABS: ABG PCO2 42.9 mmHg (35-45); ABG PH Result 7.47 (7.35-7.45); Alveolar-Arterial Oxygen Gradi 12.4 mmHg (5-10); Arterial Blood Gas Hematocrit 46.1 % (37-47); Base Excess ABG 6.4 mmol/L (-2.0-2.0); Blood Gas Allen Test Pos; Blood Gas Operator Identificat ED; Blood Gas Sample Site Radial, left; Blood Gas Sample Type Arterial; Carboxyhemoglobin 4.4 %THgb (0.4-20.1); HGB O2 Sat 92.1 % (95-100); Ionized Calcium Level - ABG 1.1 mmol/L (1.1-1.4); Methemoglobin 0.5 % (0.4-1.5); Oxygen Device NC; Oxygen Saturation ABG 96.8; PO2 ABG 79.6 mmHg (80.0-100.0); Potassium Level - ABG 3.2 mmol/L (3.5-5.0)
[2022-01-28] MEDS: dilTIAZem 5 mg/mL SDV 5 mL 20 MG IVP (18:08)
[2022-01-28 18:29] LABS: INR 1.14 (0.8-1.2)
[2022-01-28 18:33] LABS: Troponin(5th) Baseline 31 ng/L (0-10)
[2022-01-28] MEDS: dilTIAZem 60 mg Tablet PO (18:38)
[2022-01-28 18:39] LABS: Thyroid Stimulating Hormone 0.27 uIU/mL (0.27-4.20)
[2022-01-28 18:42] LABS: Alanine Aminotransferase 8 U/L (0-33); Alkaline Phosphatase 74 IU/L (35-105); Anion Gap 20.7 (5-19); Aspartate Amino Transferase 18 U/L (0-32); Blood Urea Nitrogen 23 mg/dL (8-23); Calcium 9.1 mg/dL (8.5-10.5); Carbon Dioxide 29 mmol/L (22-29); Chloride 95 mmol/L (98-107); Globulin 1.9 g/dL (1.3-4.6); Glucose 220 mg/dL (65-115); NT Pro B Type Natriuretic Pept 1860 pg/mL (0-125); Osmolality Calculated 302 mOsm/kg (285-295); Potassium 3.7 mmol/L (3.5-5.1); Sodium 141 mmol/L (136-145); Total Bilirubin 0.6 mg/dL (0.15-1.2); Total Protein 5.9 g/dL (6.6-8.7)
[2022-01-28 19:04] LABS: D Dimer 2.35 ug/mIFEU (0-0.59)
--- NOTE | 2022-01-28 19:04 | PC.NURSE ---
REPORT GIVEN TO [facility].
--- NOTE | 2022-01-28 19:17 | ECG_ITS ---
[facility] Test Date: 2022-01-28 Pat Name: Rebeca Álvarez Department: Room: 277 Gender: Female Poker Supervisor: : 1950 Requested By: Roya Bautista Order Number: [id number] Mohamud MD: Harsh Hernandez M.D. Measurements Intervals [place] Rate: 122 P: 8 MS: 218 QRS: 63 QRSD: 93 T: 1 QT: 378 QTc: 541 Interpretive Statements SINUS TACHYCARDIA WITH FIRST DEGREE AV BLOCK Compared to ECG 01/28/2022 17:17:13 First degree AV block now present Atrial fibrillation no longer present ST (T wave) deviation no longer present Electronically Signed On 01-30-2022 17:50:11 CDT by Harsh Hernandez M.D. [id number]
--- NOTE | 2022-01-28 19:32 | P.HP_ITS ---
Providers/Chief Complaint Admitting Physician: Moses Miranda MD Chief Complaint: AFIB need 02 History of Present Illness Rebeca Álvarez is a 71 year old female with a past medical history with A. fib with RVR, COPD, hypertension, type 2 diabetes mellitus who had a recent hospitalization for COPD exacerbation, Bennie. fib with RVR recently discharged, who presents [facility] due to persistent lower extremity edema, shortness of breath, fatigue, malaise. She tells me that she is originally from [place], her in November, she is recently moved to the area to be with her sons, she tells me that since getting home from the hospital she continues to have lower extremity edema, shortness of breath with exertion, fatigue, malaise. She also was having intermittent episodes of chest palpitations, no fevers, no chills, no nausea, no vomiting, no dysuria, hematuria. Review of Systems Const: Reports: fatigue and malaise; Denies: fever(s) Card: Reports: palpitations, irregular heart rhythm and edema; Denies: chest pain Resp: Reports: dyspnea GI: Denies: abdominal pain : Denies: flank pain or dysuria Medications/Allergies Home Medications Medication Instructions Recorded Confirmed Last Taken Type alprazolam 1 mg tablet 0.5 mg PO BID 14 days #14 tabs 01/25/22 Unknown Rx dofetilide 125 mcg capsule 250 mcg PO BID 30 days #120 caps 01/25/22 Unknown Rx furosemide 40 mg tablet (Lasix) 40 mg PO BID 30 days #60 tabs 01/25/22 Unknown Rx hydrocodone 10 mg-acetaminophen 1 tab PO Q6H PRN Pain #14 tabs 01/25/22 Unknown Rx 325 mg tablet lactulose 10 gram/15 mL oral 10 g (15 mL) PO DAILY PRN 01/25/22 Unknown Rx solution constipation #237 mL montelukast 10 mg tablet 1 mg PO BEDTIME #30 tabs 01/25/22 Unknown Rx pantoprazole 40 mg tablet,delayed 40 mg PO DAILY #14 tabs 01/25/22 Unknown Rx release potassium chloride 20 mEq 40 meq PO DAILY 30 days #30 tabs 01/25/22 Unknown Rx tablet,extended release(part/cryst) (Klor-Con M) prednisone 20 mg tablet 40 mg PO DAILY #10 tabs 01/25/22 Unknown Rx rivaroxaban 15 mg tablet (Xarelto) 15 mg PO DAILY #30 tabs 01/25/22 Unknown Rx rosuvastatin 20 mg tablet 20 mg PO DAILY 30 days #30 tabs 01/25/22 Unknown Rx sennosides 8.6 mg-docusate sodium 1 tab PO BID #60 tabs 01/25/22 Unknown Rx 50 mg tablet (Stool Softener-Laxative) zolpidem 10 mg tablet 10 mg PO BEDTIME #30 tabs 01/25/22 Unknown Rx Allergies Allergy/AdvReac Type Severity Reaction Status Date / Time morphine Allergy Unknown Verified 01/06/22 08:19 Penicillins Allergy Unknown Verified 01/06/22 08:19 PFSH Acute PFSH: Medical History Abdominal pain HERBER (acute kidney injury) Atrial fibrillation Atrial fibrillation Atrial fibrillation with rapid ventricular response COPD (chronic obstructive pulmonary disease) Dehydration History of syncope HTN (hypertension) with goal to be determined Hypokalemia Right heart failure T2DM (type 2 diabetes mellitus) Volume overload Surgical History Hx of cholecystectomy Social History Smoking and tobacco status: current every day smoker Alcohol intake: never Marital status: / Vitals/I&O/Wt Last Vital Signs Temp 98 F 01/28/22 17:24 Pulse 102 H 01/28/22 17:24 Resp 16 01/28/22 17:24 BP 130/78 01/28/22 17:24 Pulse Ox 97 01/28/22 17:24 O2 Del Method 01/28/22 17:24 O2 Flow Rate 3 01/28/22 17:24 Weight last 48 hrs Weight 104.326 kg Physical Exam Const: COMMON NORMALS: no acute distress and patient oriented x3 HENMT: COMMON NORMALS: normocephalic HEAD & SCALP: normocephalic Eye: COMMON NORMALS: Equal, round and reactive pupils present and EOMs intact bilaterally Neck/C-Spine: COMMON NORMALS: no JVD Resp: COMMON NORMALS: normal respiratory effort, No retractions, No use of accessory muscles and clear to auscultation bilaterally AUSCULTATION: clear to auscultation bilaterally Cardio: COMMON NORMALS: S1 normal heart sound present and S2 normal heart sound present RATE: tachycardic RHYTHM: abnormal rhythm regularly irregular HEART SOUNDS: S1 normal heart sound present and S2 normal heart sound present GI: COMMON NORMALS: Normal to inspection, nondistended, normoactive bowel s ounds present, Soft to palpation, non-tender, No hepatosplenomegaly present, no masses and no bruits PALPATION: Yes Soft to palpation and Yes No hepatosplenomegaly present Extremity: COMMON NORMALS: capillary refill normal, no clubbing, cyanosis or edema, no calf tenderness and no pedal edema Neuro: COMMON NORMALS: patient oriented x3, CN's II-XII intact bilaterally, moves all extremities and no focal motor deficits Psych: COMMON NORMALS: mental status grossly normal Data : 01/28/22 17:45 01/28/22 17:45 A&P Assessment and plan (1) Atrial fibrillation with RVR: Status: Acute (2) Acute kidney injury superimposed on CKD: Status: Acute (3) Fatigue: Status: Acute (4) Generalized weakness: Status: Acute (5) Chronic anticoagulation: Status: Acute (6) Acute diastolic heart failure: Status: Acute Plan A. fib with rapid ventricular response -Family advised to bring in Tikosyn -Has received multiple Cardizem pushes, currently heart rates are in the 100s, b ut does jump up into the 140s intermittently, A. fib -Alert oriented x3, following all commands on 3 L -Continue Cardizem, but will start on 30 every 6 hours -During last hospitalization developed hypotension with esmolol, was not tolerant to metoprolol, also developed hypotensive episodes with Cardizem -Was managed with amiodarone monitor for now -Monitor heart rates, monitor blood pressures -Continue Xarelto -Cardiology consulted HERBER on CKD, creatinine 1.5, hold Lasix Acute diastolic CHF exacerbation -No crackles on exam, but does have bilateral from edema, 1+ -Decrease Lasix to 40 mg IV every 24 hours starting tomorrow cardiac echo ?Contrast echocardiogram was used to delineate the LV borders. ? ?Normal LV size ejection fraction of 62%.? No gross wall motion ?abnormalities. ?The right ventricle appears to be mildly dilated with slightly ?diminished ejection fraction ?There is no pericardial effusion. ?There are no intracardiac masses. ?Technically difficult study Weakness, fatigue -UA ordered -No evidence of pneumonia -TSH within normal limits -Likely related to patient's severe depression anxiety, she has had the loss of her a few months ago, and she has had to move from [place] down to [place], to live with her son's -Consider discussing with psychiatry Full code Xarelto for DVT prophylaxis Attestations Medical Necessity Statement*: Patient requires hospitalization for A. fib with RVR, diastolic CHF exacerbation, HERBER, inpatient, greater than 2 midnights Coding Level of Care Code Acute E Commerce Strategist for Chg Fwd Diagnoses Atrial fibrillation with RVR I48.91 Acute kidney injury superimposed on CKD N17.9; N18.9 Fatigue R53.83 Generalized weakness R53.1 Chronic anticoagulation Z79.01 Acute diastolic heart failure I50.31
[2022-01-28 19:54] LABS: Adenovirus Not Detected (NOT DETECT); Chlamydia Pneumoniae Not Detected (NOT DETECT); Coronavirus 229E,HKU1,NL63,OC4 Not Detected (NOT DETECT); Human Metapneumovirus Not Detected (NOT DETECT); Human Rhinovirus/Enterovirus Not Detected (NOT DETECT); Influenza A Not Detected (NOT DETECT); Influenza A H1 Not Detected (NOT DETECT); Influenza A H1-2009 Not Detected (NOT DETECT); Influenza A H3 Not Detected (NOT DETECT); Influenza B Not Detected (NOT DETECT); Mycoplasma Pneumoniae Not Detected (NOT DETECT); Parainfluenza Virus Type 1 Not Detected (NOT DETECT); Parainfluenza Virus Type 2 Not Detected (NOT DETECT); Parainfluenza Virus Type 3 Not Detected (NOT DETECT); Parainfluenza Virus Type 4 Not Detected (NOT DETECT); Respiratory Syncytial Virus A Not Detected (NOT DETECT); Respiratory Syncytial Virus B Not Detected (NOT DETECT); SARS-COV-2 Not Detected (NOT DETECT)
[2022-01-28 19:59] LABS: Chol HDL Ratio 3.05 mg/dL (0.0-4.40); Cholesterol 128 mg/dL (0-200); HDL Cholesterol 42 mg/dL (60-100); LDL Cholesterol Calculated 53 mg/dL (50-129); LDL HDL Ratio 1.26 RATIO (0.00-3.22); Magnesium 1.7 mg/dL (1.7-2.3); Triglycerides 167 mg/dL (0-150)
[2022-01-28 20:00] LABS: Troponin 5 2HR 28.96 ng/L (0-10)
[2022-01-28 20:01] LABS: Troponin 5 2HR Delta -2.04 ABS# (0-10)
[2022-01-28 20:03] VITALS: BP 101/87; PULSE 70; RESP 14; TEMP 36.7; O2SAT 95
[2022-01-28 21:13] VITALS: O2SAT 96
[2022-01-28] MEDS: zolpidem 5 mg Tablet 10 MG PO (21:47)
[2022-01-28] MEDS: montelukast sodium 10 mg Tablet PO (21:47)
[2022-01-28 22:00] VITALS: PULSE 66
[2022-01-28 22:35] LABS: Free T4 Free Thyroxine 1.83 ng/dL (0.82-1.77)
--- NOTE | 2022-01-28 23:17 | ECG_ITS ---
[facility] Test Date: 2022-01-28 Pat Name: Rebeca Álvarez Department: Room: 277 Gender: Female Assistant Attorney General: : 1950 Requested By: Roya Bautista Order Number: [id number] Mohamud MD: Harsh Hernandez M.D. Measurements Intervals [place] Rate: 97 P: MA: QRS: 61 QRSD: 93 T: -44 QT: 376 QTc: 479 Interpretive Statements ATRIAL FIBRILLATION MODERATE T-WAVE ABNORMALITY, CONSIDER LATERAL ISCHEMIA [-0.1+ mV T-WAVE IN I/aVL/V5/V6] MODERATE T-WAVE ABNORMALITY, CONSIDER INFERIOR ISCHEMIA [-0.1+ mV T-WAVE IN II/aVF] Compared to ECG 01/28/2022 20:54:39 T-wave abnormality now present Possible ischemia now present Sinus tachycardia no longer present First degree AV block no longer present Electronically Signed On 01-30-2022 17:49:37 CDT by Harsh Hernandez M.D. [id number]
[2022-01-28 23:39] VITALS: BP 120/65; PULSE 86; RESP 22; TEMP 36.7; O2SAT 95
[2022-01-28 23:56] LABS: Troponin 5 6HR 27.14 ng/L (0-10); Troponin 5 6HR Delta -3.86 ng/L (0-12)
[2022-01-29] VITALS (10 sets, daily range): BP systolic 106–122; BP diastolic 63–81; PULSE 61–122; RESP 16–20; TEMP 36.8–37.3; O2SAT 94–98
[2022-01-29 01:58] LABS: Add Urine Microscopic? NO; Charge for UA Resulting for Rev
[2022-01-29] MEDS: dilTIAZem 30 mg Tablet PO ×4 (01:58→20:26)
[2022-01-29 02:01] LABS: Bilirubin Urine Neg (Negative); Blood Urine Neg (Negative); Glucose Urine UA Norm (Normal); Ketones Urine Negative (Negative); Leukocyte Esterase Urine Negative (Negative); Nitrate Urine Negative (Negative); Protein Urine Neg (Negative); Specific Gravity, Urine 1.015 (1.005-1.030); Urine Appearance Clear (CLEAR); Urine Color Yellow (Yellow); Urobilinogen Urine Neg (Negative); pH Urine 6 (5-7)
[2022-01-29 04:40] LABS: Basophils % 0.1 %; Hemoglobin 13.5 g/dL (11.5-15.3); Lymphocytes # 1.6 10^3/uL (0.8-4.8); Lymphocytes % 13.7 %; Mean Corpuscular HGB Conc 32.9 g/dL (30.0-36.0); Mean Corpuscular Hemoglobin 31.3 pg (28.0-34.0); Mean Corpuscular Volume 94.9 fl (81-99); Mean Platelet Volume 10.8 fL (7.4-10.4); Monocytes # 0.7 10^3/uL (0.2-0.9); Monocytes % 5.9 %; Neutrophils # 9.01 10^3/uL (1.8-7.7); Neutrophils % 79.7 %; Nucleated Red Blood Cells % 0 %; Platelet Count 273 10^3/cmm (130-400); Red Blood Count 4.32 10^6/uL (4.1-5.3); Red Cell Distribution Width 13.4 % (12.1-15.1); White Blood Count 11.3 10^3/uL (4.0-10.0)
[2022-01-29 05:27] LABS: Alanine Aminotransferase 7 U/L (0-33); Albumin Level 3.2 g/dL (3.5-5.2); Alkaline Phosphatase 66 IU/L (35-105); Blood Urea Nitrogen 19 mg/dL (8-23); C Reactive Protein 4.5 mg/L (0.0-4.9); Calcium 8.8 mg/dL (8.5-10.5); Carbon Dioxide 30 mmol/L (22-29); Chloride 95 mmol/L (98-107); Globulin 1.8 g/dL (1.3-4.6); Glucose 239 mg/dL (65-115); Magnesium 1.7 mg/dL (1.7-2.3); NT Pro B Type Natriuretic Pept 1429 pg/mL (0-125); Osmolality Calculated 298 mOsm/kg (285-295); Phosphorus 3.5 mg/dL (2.5-4.5); Sodium 139 mmol/L (136-145); Total Bilirubin 0.6 mg/dL (0.15-1.2)
[2022-01-29 05:28] LABS: Anion Gap 17.3 (5-19); Aspartate Amino Transferase 14 U/L (0-32); Creatinine Clr Calc Pharmacy 61.1504; Potassium 3.3 mmol/L (3.5-5.1)
[2022-01-29] MEDS: FUROsemide 10 mg/mL SDV 4mL 40 MG IVP (05:51)
[2022-01-29] MEDS: atorvastatin 40 mg Tablet 80 MG PO (08:55)
[2022-01-29] MEDS: sennosides-docusate Tablet 1 TAB PO (08:55)
[2022-01-29] MEDS: pantoprazole DR 40 mg Tablet PO (08:56)
[2022-01-29] MEDS: ALPRAZolam 0.5 mg Tablet PO ×2 (08:56→16:59)
[2022-01-29] MEDS: potassium chloride ER 20 mEq Tablet 40 MEQ PO (08:56)
[2022-01-29] MEDS: rivaroxaban 10 mg Tablet 15 MG PO (08:56)
[2022-01-29] MEDS: HYDROcodone-acetaminophen 10-325 mg Tablet 1 TAB PO ×2 (10:22→16:50)
--- NOTE | 2022-01-29 10:37 | P.CONIM_ITS ---
Providers/Reason For Consult Consulting Physician/Specialty*: Harsh Hernandez MD/Cardiology Reason for Consult*: Atrial fibrillation Requesting Physician: Dr Alford Attending Physician: Shayy Chavez MD History of Present Illness History of Present Illness Rebeca Álvarez is a 71 year old female with past medical history of atrial fibrillation with RVR, diabetes, history of DVT who was recently discharged from the hospital after she had A. fib with RVR. She was started on Tikosyn and was on Xarelto. According to patient since going home when she has been having shortness of breath, feels palpitations and has fatigue. In the ER she was found to be in A. fib. Currently she has controlled heart rate however is staying in A. fib. Blood pressure is controlled. Review of Systems Const: Reports: fatigue and malaise; Denies: fever(s) Card: Reports: palpitations, irregular heart rhythm and edema; Denies: chest pain Resp: Reports: dyspnea GI: Denies: abdominal pain : Denies: flank pain or dysuria Musc: Denies: extremity pain Medications/Allergies Home Medications Medication Instructions Recorded Confirmed Last Taken Type alprazolam 1 mg tablet 0.5 mg PO BID 14 days #14 tabs 01/25/22 Unknown Rx dofetilide 125 mcg capsule 250 mcg PO BID 30 days #120 caps 01/25/22 Unknown Rx furosemide 40 mg tablet (Lasix) 40 mg PO BID 30 days #60 tabs 01/25/22 Unknown Rx hydrocodone 10 mg-acetaminophen 1 tab PO Q6H PRN Pain #14 tabs 01/25/22 Unknown Rx 325 mg tablet lactulose 10 gram/15 mL oral 10 g (15 mL) PO DAILY PRN 01/25/22 Unknown Rx solution constipation #237 mL montelukast 10 mg tablet 1 mg PO BEDTIME #30 tabs 01/25/22 Unknown Rx pantoprazole 40 mg tablet,delayed 40 mg PO DAILY #14 tabs 01/25/22 Unknown Rx release potassium chloride 20 mEq 40 meq PO DAILY 30 days #30 tabs 01/25/22 Unknown Rx tablet,extended release(part/cryst) (Klor-Con M) prednisone 20 mg tablet 40 mg PO DAILY #10 tabs 01/25/22 Unknown Rx rivaroxaban 15 mg tablet (Xarelto) 15 mg PO DAILY #30 tabs 01/25/22 Unknown Rx rosuvastatin 20 mg tablet 20 mg PO DAILY 30 days #30 tabs 01/25/22 Unknown Rx sennosides 8.6 mg-docusate sodium 1 tab PO BID #60 tabs 01/25/22 Unknown Rx 50 mg tablet (Stool Softener-Laxative) zolpidem 10 mg tablet 10 mg PO BEDTIME #30 tabs 01/25/22 Unknown Rx Allergies Allergy/AdvReac Type Severity Reaction Status Date / Time morphine Allergy Unknown Verified 01/06/22 08:19 Penicillins Allergy Unknown Verified 01/06/22 08:19 Current Medications Generic Name Dose Route Start Last Admin Trade Name Freq PRN Reason Stop Dose Admin Hydrocodone Bitart/Acetaminophen 1 tab 01/28/22 20:54 01/29/22 10:22 Hydrocodone-Acetaminophen 10-325 Mg Tablet PO 1 tab Q6H PRN Administration Pain Alprazolam 0.5 mg 01/29/22 09:00 01/29/22 08:56 Alprazolam 0.5 Mg Tablet PO 0.5 mg BID JONATAN Administration Atorvastatin Calcium 80 mg 01/29/22 09:00 01/29/22 08:55 Atorvastatin 40 Mg Tablet PO 80 mg DAILY JONATAN Administration Diltiazem HCl 30 mg 01/28/22 20:54 01/29/22 08:56 Diltiazem 30 Mg Tablet PO 30 mg Q6H JONATAN Administration Furosemide 40 mg 01/29/22 06:00 01/29/22 05:51 Furosemide 10 Mg/Ml Sdv 4ml IVP 40 mg QAM JONATAN Administration Montelukast Sodium 10 mg 01/28/22 21:00 01/28/22 21:47 Montelukast Sodium 10 Mg Tablet PO 10 mg BEDTIME JONATAN Administration Non-Formulary Medication 250 mcg 01/28/22 21:30 01/29/22 09:20 Dofetilide PO 250 mcg BID JONATAN Administration Pantoprazole Sodium 40 mg 01/29/22 09:00 01/29/22 08:[address] 40 Mg Tablet PO 40 mg DAILY JONATAN Administration Potassium Chloride 40 meq 01/29/22 09:00 01/29/22 08:56 Potassium Chloride Er 20 Meq Tablet PO 40 meq DAILY JONATAN Administration Rivaroxaban 15 mg 01/29/22 09:00 01/29/22 08:56 Rivaroxaban 10 Mg Tablet PO 15 mg DAILY JONATAN Administration Senna/Docusate Sodium 1 tab 01/29/22 09:00 01/29/22 08:55 Sennosides-Docusate Tablet PO 1 tab BID JONATAN Administration Zolpidem Tartrate 10 mg 01/28/22 21:30 01/28/22 21:47 Zolpidem 5 Mg Tablet PO 10 mg BEDTIME JONATAN Administration PFSH Acute PFSH: Medical History Abdominal pain HERBER (acute kidney injury) Atrial fibrillation Atrial fibrillation Atrial fibrillation with rapid ventricular response COPD (chronic obstructive pulmonary disease) Dehydration History of syncope HTN (hypertension) with goal to be determined Hypokalemia Right heart failure T2DM (type 2 diabetes mellitus) Volume overload Surgical History Hx of cholecystectomy Social History Smoking and tobacco status: current every day smoker Alcohol intake: never Marital status: / Vitals/I&O/Wt Last Vital Signs Temp 98.6 F 01/29/22 08:00 Pulse 75 01/29/22 08:11 Resp 16 01/29/22 08:11 BP 119/67 01/29/22 08:00 Pulse Ox 98 01/29/22 08:11 O2 Del Method 01/29/22 08:11 O2 Flow Rate 3 01/29/22 08:11 01/28/22 01/29/22 01/29/22 22:59 06:59 14:59 Intake Total 120 / 120 Output Total 400 / 400 Balance -280 / -280 Weight last 48 hrs Weight 230 lb Physical Exam Narrative: GENERAL: Patient is alert, awake and oriented x3. [] NECK: No jugular vein distension. [] HEENT: No cyanosis. No icterus. No pallor. [] HEART: Irregularly irregular. LUNGS: Clear to auscultate bilaterally. [] ABDOMEN: Soft, nontender and nondistended. Positive bowel sounds. No guarding, rebound or tenderness. [] CENTRAL NERVOUS SYSTEM: Grossly nonfocal. [] EXTREMITIES: Lower extremities with 1+ edema bilaterally. Pulses palpable in the lower extremities, both dorsalis pedis and posterior tibial. [] Data : 01/29/22 03:45 01/29/22 03:45 A&P Assessment and plan (1) Atrial fibrillation with RVR: Status: Acute (2) Fatigue: Status: Acute (3) Generalized weakness: Status: Acute (4) Acute kidney injury superimposed on CKD: Status: Acute (5) COPD (chronic obstructive pulmonary disease): Status: Acute Plan Patient is presented with A. fib with RVR. Continue cardizem and uptitrate as BP and heart rate allow Continue Tikosyn Continue telemetry monitoring for today. Continue anticoagulation with Xarelto. Thank you for involving us with care of this patient. We will continue to follow. Please call with questions. Consult Attestations Medical Necessity Statement: Care expected to cross 2 midnights. Coding Level of Care Code Acute Concentrator Operator for Emely Silva Diagnoses Atrial fibrillation with RVR I48.91 Fatigue R53.83 Generalized weakness R53.1 Acute kidney injury superimposed on CKD N17.9; N18.9 COPD (chronic obstructive pulmonary disease) J44.9
--- NOTE | 2022-01-29 12:51 | P.PN_ITS ---
Subjective Subjective: Heart rate stays in 70s at rest however gets worse on ambulation She has been started on Cardizem We will plan to titrate her Cardizem p.o. regimen for now Replenish electrolytes potassium 3.3, magnesium is 1.7 Vitals/I&O/Wt Last Vital Signs Temp 98.6 F 01/29/22 08:00 Pulse 75 01/29/22 08:11 Resp 16 01/29/22 08:11 BP 119/67 01/29/22 08:00 Pulse Ox 98 01/29/22 08:11 O2 Del Method 01/29/22 08:11 O2 Flow Rate 3 01/29/22 08:11 01/28/22 01/29/22 01/29/22 22:59 06:59 14:59 Intake Total 120 / 120 Output Total 400 / 400 400 / 400 Balance -280 / -280 -400 / -400 Weight last 48 hrs Weight 104.326 kg Physical Exam Narrative: [facility] female Cushingoid appearance Chronic steroid use and Abdomen soft Trace edema of legs S1, S2 variable No active chest pain or shortness of breath Currently on room air [facility] Data : 01/29/22 03:45 01/29/22 03:45 A&P Assessment and plan (1) Atrial fibrillation with RVR: Status: Acute (2) Fatigue: Status: Acute (3) Generalized weakness: Status: Acute (4) Chronic anticoagulation: Status: Acute (5) COPD (chronic obstructive pulmonary disease): Status: Acute Plan A. fib RVR at rest her heart rate is in 70s On ambulation and gets up to 120s and 130s We will replenish her potassium and magnesium D-dimer is high we will get PE work-up and obtain venous Doppler Continue Cardizem and titrate Normal TSH Chronic steroid use for her arthritis I have asked patient to taper his steroids down to 10 mg gradually, She has cushingoid appearance Acute diastolic CHF exacerbation Continue Lasix Follow-up with echo Chronic hypoxia, patient is using 3 L of oxygen at baseline for her atypical pneumonia She does not know the cardiology of pneumonia which was diagnosed in [place] Full code Cardiac diet DVT prophylaxis on board Attestations Medical Necessity Statement*: Continue medical management, discharge tomorrow if stable Time Spent in Patient Care: 30 Coding Level of Care Code Acute Stress Engineer for Emely Silva Diagnoses Atrial fibrillation with RVR I48.91 Fatigue R53.83 Generalized weakness R53.1 Chronic anticoagulation Z79.01 COPD (chronic obstructive pulmonary disease) J44.9
--- NOTE | 2022-01-29 12:59 | CTR_ITS ---
PROCEDURE INFORMATION: Exam: CTA Chest With Contrast Exam date and time: 01/30/2022 2:46 AM Age: 71 years old Clinical indication: Pain; Left-sided; Additional info: Afib rvr TECHNIQUE: Imaging protocol: Computed tomographic angiography of the chest with contrast. 3D rendering (Not supervised by radiologist): MIP and/or 3D reconstructed images were created by the technologist. Radiation optimization: All CT scans at this facility use at least one of these dose optimization techniques: automated exposure control; mA and/or kV adjustment per patient size (includes targeted exams where dose is matched to clinical indication); or iterative reconstruction. Contrast material: OMNI 350; Contrast volume: 95 ml; Contrast route: INTRAVENOUS (IV); COMPARISON: CT chest wo con [id number] 01/24/2022 11:00 AM RADIATION DOSE METRICS: Total DLP (mGy-cm): 434.66 FINDINGS: Pulmonary arteries: No CT evidence for segmental pulmonary emboli. The main pulmonary arteries and outflow trunk are unremarkable. Aorta: No thoracic aortic aneurysm. There is poor contrast opacification of the thoracic aorta, which limits assessment for thoracic aortic dissection. 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 Trachea: The central airway is normal. Lungs: Moderate centrilobular emphysema is seen. Biapical subpleural blebs are seen, the largest in the right apical region measuring 2 x 3.7 cm. Mild left upper lobe posterior and right lower lobe posterior atelectasis is seen. Mild bilateral basilar atelectasis is also seen. Pleural spaces: No pneumothorax. No pleural effusion. Heart: There is mild 4 chamber cardiomegaly. There is lipomatosis of the intra-atrial septum. Mild left anterior descending coronary arterial atherosclerotic vascular calcifications are seen. No pericardial effusion. Lymph nodes: No enlarged lymph nodes. Bones/joints: There are no acute osseous abnormalities noted. Small degenerative osteophytes and mild degenerative disc disease changes are seen throughout the thoracic spine. Soft tissues: Unremarkable. CT/CT angio chest PE protcl [id number] IMPRESSION: 1. No CTA evidence of pulmonary embolism or thoracic aortic aneurysm. Poor contrast opacification of the thoracic aorta, which limits assessment for thoracic aortic dissection. 2. Unchanged moderate centrilobular emphysema with unchanged biapical subpleural blebs. Mild scattered areas of bilateral lung atelectasis, as noted above. 3. Unchanged mild 4 chamber cardiomegaly. Unchanged mild left anterior descending coronary arterial atherosclerotic vascular calcifications. 4. Occluded left subclavian vein seen with multiple collateral veins seen in the left chest wall region.
--- NOTE | 2022-01-29 12:59 | USR_ITS ---
PROCEDURE INFORMATION: Exam: US Duplex Lower Extremity Veins, Bilateral Exam date and time: 01/29/2022 1:23 PM Age: 71 years old Clinical indication: Swelling (edema) of limb; Lower extremity, bilateral; Prior surgery; Surgery date: 6+ months; Surgery type: Lt knee replaced several years ago; Patient HX: PT is very SOB TECHNIQUE: Imaging protocol: Real-time Duplex ultrasound of the bilateral extremities with 2-D bob scale, color Doppler flow and spectral waveform analysis with image documentation. Complete exam focused on the bilateral lower extremity veins. COMPARISON: CT abdomen pelvis wo con [id number] 01/24/2022 4:50 PM FINDINGS: Right deep veins: Unremarkable. The common femoral, femoral, proximal profunda femoral and popliteal veins are patent without thrombus. Normal Doppler waveforms. Normal compressibility and/or augmentation response. Right superficial veins: Saphenofemoral junction is patent without thrombus. Left deep veins: Unremarkable. The common femoral, femoral, proximal profunda femoral and popliteal veins are patent without thrombus. Normal Doppler waveforms. Normal compressibility and/or augmentation response. Left superficial veins: Saphenofemoral junction is patent without thrombus. Soft tissues: Unremarkable. US/[place] [id number] IMPRESSION: No evidence of deep vein thrombosis.
[2022-01-29] MEDS: magnesium oxide 400 mg tablet PO ×2 (13:19→16:59)
--- NOTE | 2022-01-29 15:35 | PC.PT ---
Discussed with Dr. Chavez, the patient was safely independent with transfers and ambulation, with good safety awareness, with occupational therapist who saw her earlier, and he feels no need of PT evaluation at this time. No further attempts to be made at this time.
[2022-01-29 15:49] LABS: Estmated Average Glucose 166; Hemoglobin A1C 7.4 % (4.0-6.0)
[2022-01-29 17:16] LABS: Glucose Point of Care 209 mg/dL (70-110)
[2022-01-29] MEDS: insulin lispro 100 unit/1 mL SUBCUT (17:47)
[2022-01-29] MEDS: montelukast sodium 10 mg Tablet PO (20:26)
[2022-01-29 21:03] LABS: Glucose Point of Care 196 mg/dL (70-110)
[2022-01-29] MEDS: zolpidem 5 mg Tablet 10 MG PO (22:29)
[2022-01-30] VITALS (11 sets, daily range): BP systolic 102–138; BP diastolic 67–80; PULSE 58–108; RESP 16–20; TEMP 36.6–36.9; O2SAT 93–97
[2022-01-30] MEDS: dilTIAZem 30 mg Tablet PO ×3 (01:59→10:40)
[2022-01-30] MEDS: HYDROcodone-acetaminophen 10-325 mg Tablet 1 TAB PO ×4 (01:59→19:49)
[2022-01-30] MEDS: iohexol 350 mg/mL 100 mL Btl IV (03:06)
[2022-01-30 05:01] LABS: Basophils % 0.3 %; Eosinophils # 0.1 10^3/uL (0.0-0.8); Eosinophils % 1.2 %; Hematocrit 42.4 % (37.0-47.0); Hemoglobin 13.3 g/dL (11.5-15.3); Lymphocytes # 2.3 10^3/uL (0.8-4.8); Lymphocytes % 34.5 %; Mean Corpuscular HGB Conc 31.4 g/dL (30.0-36.0); Mean Corpuscular Hemoglobin 31.1 pg (28.0-34.0); Mean Corpuscular Volume 99.3 fl (81-99); Mean Platelet Volume 9.6 fL (7.4-10.4); Monocytes # 0.5 10^3/uL (0.2-0.9); Neutrophils # 3.79 10^3/uL (1.8-7.7); Neutrophils % 55.7 %; Nucleated Red Blood Cells % 0 %; Platelet Count 293 10^3/cmm (130-400); Red Blood Count 4.27 10^6/uL (4.1-5.3); Red Cell Distribution Width 13.4 % (12.1-15.1); White Blood Count 6.8 10^3/uL (4.0-10.0)
[2022-01-30] MEDS: FUROsemide 10 mg/mL SDV 4mL 40 MG IVP (05:21)
[2022-01-30 05:37] LABS: Alanine Aminotransferase 7 U/L (0-33); Alkaline Phosphatase 66 IU/L (35-105); Anion Gap 13.2 (5-19); Aspartate Amino Transferase 12 U/L (0-32); Blood Urea Nitrogen 20 mg/dL (8-23); C Reactive Protein 4.2 mg/L (0.0-4.9); Calcium 9.1 mg/dL (8.5-10.5); Carbon Dioxide 30 mmol/L (22-29); Chloride 99 mmol/L (98-107); Globulin 2.3 g/dL (1.3-4.6); Glucose 144 mg/dL (65-115); NT Pro B Type Natriuretic Pept 508 pg/mL (0-125); Osmolality Calculated 293 mOsm/kg (285-295); Potassium 3.2 mmol/L (3.5-5.1); Sodium 139 mmol/L (136-145); Total Bilirubin 0.6 mg/dL (0.15-1.2); Total Protein 5.3 g/dL (6.6-8.7)
[2022-01-30 05:55] LABS: Slide Review Slide Review Perform
[2022-01-30 06:22] LABS: Glucose Point of Care 137 mg/dL (70-110)
[2022-01-30] MEDS: atorvastatin 40 mg Tablet 80 MG PO (08:10)
[2022-01-30] MEDS: ALPRAZolam 0.5 mg Tablet PO ×2 (08:10→17:44)
[2022-01-30] MEDS: magnesium oxide 400 mg tablet PO ×2 (08:10→17:44)
[2022-01-30] MEDS: pantoprazole DR 40 mg Tablet PO (08:12)
[2022-01-30] MEDS: potassium chloride ER 20 mEq Tablet 40 MEQ PO (08:12)
[2022-01-30] MEDS: rivaroxaban 10 mg Tablet 15 MG PO (08:13)
[2022-01-30] MEDS: sennosides-docusate Tablet 1 TAB PO ×2 (08:13→17:44)
[2022-01-30] MEDS: predniSONE 20 mg Tablet PO (08:13)
--- NOTE | 2022-01-30 10:18 | PM.PN ---
Subjective Subjective: Patient feeling tired and weak. Has palpitations. Is currently in A. fib with RVR. Vitals/I&O/Wt Last Vital Signs Temp 98.1 F 01/30/22 08:00 Pulse 99 01/30/22 08:00 Resp 17 01/30/22 08:00 BP 138/80 01/30/22 08:00 Pulse Ox 95 01/30/22 08:00 O2 Del Method 01/30/22 08:00 O2 Flow Rate 3 01/30/22 08:00 01/29/22 01/30/22 01/30/22 22:59 06:59 14:59 Intake Total 420 / 540 120 / 660 240 / 240 Output Total 200 / 600 Balance 220 / -60 120 / 60 240 / 240 Weight last 48 hrs Weight 230 lb Physical Exam Narrative: GENERAL: Patient is alert, awake and oriented x3. [] NECK: No jugular vein distension. [] HEENT: No cyanosis. No icterus. No pallor. [] HEART: Irregularly irregular. Tachycardic LUNGS: Clear to auscultate bilaterally. [] ABDOMEN: Soft, nontender and nondistended. Positive bowel sounds. No guarding, rebound or tenderness. [] CENTRAL NERVOUS SYSTEM: Grossly nonfocal. [] EXTREMITIES: Lower extremities with 1+ edema bilaterally. Pulses palpable in the lower extremities, both dorsalis pedis and posterior tibial. [] Data : 01/31/22 05:17 01/31/22 05:17 A&P Assessment and plan (1) Atrial fibrillation with RVR: Status: Acute (2) Fatigue: Status: Acute (3) Generalized weakness: Status: Acute (4) Acute kidney injury superimposed on CKD: Status: Acute (5) COPD (chronic obstructive pulmonary disease): Status: Acute Plan Patient is still in A. fib with RVR this AM. We will continue Tikosyn. We will uptitrate to Cardizem to 60 mg every 6 hours. If by tomorrow patient stays in A. fib with RVR, we will plan on CARMELO/cardioversion Continue anticoagulation with Xarelto. Thank you for involving us with care of this patient. We will continue to follow. Please call with questions. Attestations Medical Necessity Statement*: Care expected to cross 2 midnights Coding Level of Care Code Acute Bottling Line Operator for Chg Fwd Diagnoses Atrial fibrillation with RVR I48.91 Fatigue R53.83 Generalized weakness R53.1 Acute kidney injury superimposed on CKD N17.9; N18.9 COPD (chronic obstructive pulmonary disease) J44.9
[2022-01-30] MEDS: insulin lispro 100 unit/1 mL SUBCUT ×2 (12:25→17:44)
[2022-01-30 12:34] LABS: Glucose Point of Care 258 mg/dL (70-110)
--- NOTE | 2022-01-30 14:35 | PM.PN ---
Subjective Subjective: Her Cardizem dose has been increased because of her tachyarrhythmia on ambulation We will watch her on 60 mg of Cardizem every 6 hours for now along her dofetilide In case of further worsening she might become a good candidate for cardioversion Vitals/I&O/Wt Last Vital Signs Temp 98.4 F 01/30/22 13:00 Pulse 89 01/30/22 13:00 Resp 17 01/30/22 13:00 BP 102/74 01/30/22 13:00 Pulse Ox 93 01/30/22 13:00 O2 Del Method 01/30/22 13:00 O2 Flow Rate 3 01/30/22 13:00 01/29/22 01/30/22 01/30/22 22:59 06:59 14:59 Intake Total 420 / 540 120 / 660 480 / 480 Output Total 200 / 600 1100 / 1100 Balance 220 / -60 120 / 60 -620 / -620 Weight last 48 hrs Weight 104.326 kg Physical Exam Narrative: Patient is awake and alert A. fib RVR on ambulation however heart rate dips down to low 70s at rest No active chest pain or shortness of breath Awake and alert Abdomen soft No signs of congestive heart failure Very pleasant cooperative Saturating well on room air Data : 01/30/22 04:45 01/30/22 04:45 A&P Assessment and plan (1) Atrial fibrillation with RVR: Status: Acute (2) Fatigue: Status: Acute (3) Generalized weakness: Status: Acute (4) Chronic anticoagulation: Status: Acute (5) Chronic kidney disease: Status: Acute Plan Dyspnea on exertion A. fib RVR on exertion She has been on Cardizem 30 mg every 6 hours which has not controlled her heart rate on ambulation Dose has been increased to 60 mg every 6 hours Along ibutilide Plan for cardioversion if she becomes more symptomatic or worsens Appreciate cardiology recommendations Replenish electrolytes Chronic kidney disease creatinine seems to be around baseline Hemoglobin A1c 7.4 Hyperglycemia Medically does not look fluid overloaded Full code Cardiac diet Attestations Medical Necessity Statement*: Continue medical management Time Spent in Patient Care: 30 Coding Level of Care Code Acute Soldering Machine Operator Automatic for Chg Fwd Diagnoses Atrial fibrillation with RVR I48.91 Fatigue R53.83 Generalized weakness R53.1 Chronic anticoagulation Z79.01 Chronic kidney disease N18.9
[2022-01-30] MEDS: dilTIAZem 60 mg Tablet PO ×2 (15:47→21:19)
[2022-01-30] MEDS: potassium chloride ER 20 mEq Tablet PO (15:48)
[2022-01-30 17:29] LABS: Glucose Point of Care 262 mg/dL (70-110)
[2022-01-30] MEDS: montelukast sodium 10 mg Tablet PO (21:19)
[2022-01-30 22:03] LABS: Glucose Point of Care 193 mg/dL (70-110)
[2022-01-30] MEDS: zolpidem 5 mg Tablet 10 MG PO (22:58)
[2022-01-31] VITALS: BP 105/67; PULSE 60; RESP 20; TEMP 36.3; O2SAT 93
[2022-01-31] MEDS: dilTIAZem 60 mg Tablet PO ×2 (03:44→08:19)
[2022-01-31 04:00] VITALS: BP 121/68; PULSE 62; RESP 13; TEMP 36.4; O2SAT 96
[2022-01-31] MEDS: FUROsemide 10 mg/mL SDV 4mL 40 MG IVP (05:08)
[2022-01-31 05:32] LABS: Basophils % 0.2 %; Eosinophils # 0.1 10^3/uL (0.0-0.8); Eosinophils % 0.5 %; Hematocrit 42.8 % (37.0-47.0); Hemoglobin 13.5 g/dL (11.5-15.3); Lymphocytes # 2.3 10^3/uL (0.8-4.8); Lymphocytes % 18.5 %; Mean Corpuscular HGB Conc 31.5 g/dL (30.0-36.0); Mean Corpuscular Volume 98.4 fl (81-99); Monocytes # 0.9 10^3/uL (0.2-0.9); Monocytes % 6.9 %; Neutrophils # 9.09 10^3/uL (1.8-7.7); Neutrophils % 73.4 %; Nucleated Red Blood Cells % 0 %; Platelet Count 310 10^3/cmm (130-400); Red Blood Count 4.35 10^6/uL (4.1-5.3); Red Cell Distribution Width 13.2 % (12.1-15.1); White Blood Count 12.4 10^3/uL (4.0-10.0)
[2022-01-31 06:00] VITALS: PULSE 66
[2022-01-31 06:24] LABS: Alanine Aminotransferase 8 U/L (0-33); Albumin Level 3.6 g/dL (3.5-5.2); Alkaline Phosphatase 72 U/L (35-105); Anion Gap 12.8 (5-19); Aspartate Amino Transferase 14 U/L (0-32); Blood Urea Nitrogen 20 mg/dL (8-23); Calcium 9.4 mg/dL (8.5-10.5); Carbon Dioxide 33 mmol/L (22-29); Chloride 100 mmol/L (98-107); Globulin 2.2 g/dL (1.3-4.6); Glucose 136 mg/dL (65-115); Magnesium 2.1 mg/dL (1.7-2.3); NT Pro B Type Natriuretic Pept 389 pg/mL (0-125); Osmolality Calculated 299 mOsm/kg (285-295); Phosphorus 3.1 mg/dL (2.5-4.5); Potassium 3.8 mmol/L (3.5-5.1); Sodium 142 mmol/L (136-145); Total Bilirubin 0.6 mg/dL (0.15-1.2); Total Protein 5.8 g/dL (6.6-8.7)
[2022-01-31 06:54] LABS: Glucose Point of Care 144 mg/dL (70-110)
[2022-01-31 08:00] VITALS: BP 118/61; PULSE 61; RESP 16; TEMP 36.9; O2SAT 94
[2022-01-31] MEDS: rivaroxaban 10 mg Tablet 15 MG PO (08:17)
[2022-01-31] MEDS: HYDROcodone-acetaminophen 10-325 mg Tablet 1 TAB PO (08:18)
[2022-01-31] MEDS: atorvastatin 40 mg Tablet 80 MG PO (08:18)
[2022-01-31] MEDS: potassium chloride ER 20 mEq Tablet 40 MEQ PO (08:18)
[2022-01-31] MEDS: ALPRAZolam 0.5 mg Tablet PO (08:18)
[2022-01-31] MEDS: predniSONE 20 mg Tablet PO (08:19)
[2022-01-31] MEDS: pantoprazole DR 40 mg Tablet PO (08:19)
[2022-01-31] MEDS: sennosides-docusate Tablet 1 TAB PO (08:19)
[2022-01-31] MEDS: magnesium oxide 400 mg tablet PO (08:19)
[2022-01-31] MEDS: insulin lispro 100 unit/1 mL SUBCUT (08:20)
--- NOTE | 2022-01-31 09:12 | PM.PN ---
Subjective Subjective: Patient is doing well today. He has converted back to normal sinus rhythm. Vitals/I&O/Wt Last Vital Signs Temp 98.5 F 01/31/22 08:00 Pulse 61 01/31/22 08:00 Resp 16 01/31/22 08:00 BP 118/61 01/31/22 08:00 Pulse Ox 94 01/31/22 08:00 O2 Del Method 01/31/22 08:00 O2 Flow Rate 3 01/31/22 04:00 01/30/22 01/31/22 01/31/22 22:59 06:59 14:59 Intake Total 600 / 1080 250 / 1330 Balance 600 / -20 250 / 230 Physical Exam Narrative: GENERAL: Patient is alert, awake and oriented x3. [] NECK: No jugular vein distension. [] HEENT: No cyanosis. No icterus. No pallor. [] HEART: Irregularly irregular. Tachycardic LUNGS: Clear to auscultate bilaterally. [] ABDOMEN: Soft, nontender and nondistended. Positive bowel sounds. No guarding, rebound or tenderness. [] CENTRAL NERVOUS SYSTEM: Grossly nonfocal. [] EXTREMITIES: Lower extremities with 1+ edema bilaterally. Pulses palpable in the lower extremities, both dorsalis pedis and posterior tibial. [] Data : 01/31/22 05:17 01/31/22 05:17 A&P Assessment and plan (1) Atrial fibrillation with RVR: Status: Acute (2) Fatigue: Status: Acute (3) Generalized weakness: Status: Acute (4) Acute kidney injury superimposed on CKD: Status: Acute (5) COPD (chronic obstructive pulmonary disease): Status: Acute Plan Patient has converted back to normal sinus rhythm. We will continue Tikosyn and switch Cardizem to 240 mg daily. Continue anticoagulation with Xarelto. Event monitor as outpatient Thank you for involving us with care of this patient. Patient is stable to be discharged from cardiology standpoint. Please call with questions. Attestations Medical Necessity Statement*: Care expected to cross 2 midnights Coding Level of Care Code Acute Service Captain for Chg Fwd Diagnoses Atrial fibrillation with RVR I48.91 Fatigue R53.83 Generalized weakness R53.1 Acute kidney injury superimposed on CKD N17.9; N18.9 COPD (chronic obstructive pulmonary disease) J44.9
--- NOTE | 2022-01-31 09:36 | PC.SOCIAL ---
IMM Update pg 2 of IMM updated and reviewed w/ patient. Copy provided and Copy initialed, dated and placed in chart.
--- NOTE | 2022-01-31 10:23 | PM.DCS ---
Discharge Providers Date of Admission: 01/28/22 23:43 Date of Discharge: January 31, 2022 Attending Provider at Admission: Moses Miranda MD Attending Provider at Discharge: Shayy Chavez MD Diagnoses at Discharge Discharge Diagnosis (1) Atrial fibrillation with RVR: Status: Acute (2) Fatigue: Status: Acute (3) Generalized weakness: Status: Acute (4) Chronic anticoagulation: Status: Acute (5) Chronic kidney disease: Status: Acute Reason for Visit Reason for Visit: AFIB need 02 Hospital Course Hospital Course 71-year-old female who was at readmitted for her A. fib RVR. Her atrial fibrillation with RVR worsens only on exertion at rest her heart rate was staying in 70 to 80s. Decision was made to increase her Cardizem dose to 60 mg every 6 hours which converted her A. fib into sinus rhythm and heart rate improved. She can continue her Tikosyn along Cardizem 240 mg daily and take her anticoagulating agent on daily basis. She will get event monitor at the time of discharge and outpatient follow-up with Dr. Cabezas Cardiology was consulted there was plan to consider cardioversion however on 01/31 she converted to sinus rhythm, hence decision was made to discharge her home Physical Exam Narrative: Patient is awake and alert Noted to be in sinus rhythm No active chest pain or shortness of breath Awake and alert Abdomen soft No signs of congestive heart failure Very pleasant cooperative Saturating well on room air Discharge Data Studies Completed and Pending Completed Studies During Hospitalization Category Date Time Status CTA PE [CT angio chest PE protcl [id number]] Routine Cat Scan 01/29/22 12:59 Completed XR chest 1V portable [id number] Stat Exams 01/28/22 17:17 Completed US venous duplex lower extremity bilat [CV venous Ultrasound 01/29/22 12:59 [place] [id number]] Routine Radiology Impressions Chest X-Ray 01/28/22 17:17 IMPRESSION: No acute findings. Chest CTA 01/29/22 12:59 IMPRESSION: 1. No CTA evidence of pulmonary embolism or thoracic aortic aneurysm. Poor contrast opacification of the thoracic aorta, which limits assessment for thoracic aortic dissection. 2. Unchanged moderate centrilobular emphysema with unchanged biapical subpleural blebs. Mild scattered areas of bilateral lung atelectasis, as noted above. 3. Unchanged mild 4 chamber cardiomegaly. Unchanged mild left anterior descending coronary arterial atherosclerotic vascular calcifications. 4. Occluded left subclavian vein seen with multiple collateral veins seen in the left chest wall region. Venous Duplex 01/29/22 12:59 IMPRESSION: No evidence of deep vein thrombosis. Laboratory Results WBC 12.4 10^3/uL (4.0-10.0) H 01/31/22 05:17 RBC 4.35 10^6/uL (4.1-5.3) 01/31/22 05:17 Hgb 13.5 g/dL (11.5-15.3) 01/31/22 05:17 Hct 42.8 % (37.0-47.0) 01/31/22 05:17 MCV 98.4 fl (81-99) 01/31/22 05:17 MCH 31.0 pg (28.0-34.0) 01/31/22 05:17 MCHC 31.5 g/dL (30.0-36.0) 01/31/22 05:17 RDW 13.2 % (12.1-15.1) 01/31/22 05:17 Plt Count 310 10^3/cmm (130-400) 01/31/22 05:17 MPV 10.0 fL (7.4-10.4) 01/31/22 05:17 Neut % (Auto) 73.4 % 01/31/22 05:17 Lymph % (Auto) 18.5 % 01/31/22 05:17 [place] % (Auto) 6.9 % 01/31/22 05:17 Eos % (Auto) 0.5 % 01/31/22 05:17 Baso % (Auto) 0.2 % 01/31/22 05:17 Neut # (Auto) 9.09 10^3/uL (1.8-7.7) H 01/31/22 05:17 Lymph # (Auto) 2.3 10^3/uL (0.8-4.8) 01/31/22 05:17 [place] # (Auto) 0.9 10^3/uL (0.2-0.9) 01/31/22 05:17 Eos # (Auto) 0.1 10^3/uL (0.0-0.8) 01/31/22 05:17 Baso # (Auto) 0.0 10^3/uL (0.0-0.1) 01/31/22 05:17 Nucleated RBC % (auto) 0 % 01/31/22 05:17 Nucleated RBCs # 0.0 /100WBC 01/31/22 05:17 PT 15.00 SECONDS (12.1-14.9) H 01/28/22 17:45 INR 1.14 (0.8-1.2) 01/28/22 17:45 D-Dimer 2.35 ug/mIFEU (0-0.59) H 01/28/22 17:45 Specimen Type Arterial 01/28/22 17:55 Sample Site Radial, left 01/28/22 17:55 ABG pH 7.47 (7.35-7.45) H 01/28/22 17:55 ABG pCO2 42.9 mmHg (35-45) 01/28/22 17:55 ABG pO2 79.6 mmHg (80.0-100.0) L 01/28/22 17:55 ABG HCO3 31.0 mmol/L (22-26) H 01/28/22 17:55 ABG O2 Saturation 96.8 01/28/22 17:55 ABG Base Excess 6.4 mmol/L (-2.0-2.0) H 01/28/22 17:55 Jayden Test Pos 01/28/22 17:55 A-a O2 Gradient 12.4 mmHg (5-10) H 01/28/22 17:55 Hematocrit 46.1 % (37-47) 01/28/22 17:55 Hgb O2 Saturation 92.1 % (95-100) L 01/28/22 17:55 Carboxyhemoglobin 4.4 %THgb (0.4-20.1) 01/28/22 17:55 Methemoglobin 0.5 % (0.4-1.5) 01/28/22 17:55 Total Hemoglobin 15.0 g/dL (12-16) 01/28/22 17:55 Sodium 141.0 mmol/L (131-143) 01/28/22 17:55 Potassium 3.2 mmol/L (3.5-5.0) L 01/28/22 17:55 Glucose 226.0 mg/dL (70-115) H 01/28/22 17:55 Ionized Calcium 1.1 mmol/L (1.1-1.4) 01/28/22 17:55 O2 Delivery Device Nc 01/28/22 17:55 O2 Liters/Min 3.0 % 01/28/22 17:55 FiO2 32.0 % 01/28/22 17:55 Library Assistant ID Ed 01/28/22 17:55 Sodium 142 mmol/L (136-145) 01/31/22 05:17 Potassium 3.8 mmol/L (3.5-5.1) 01/31/22 05:17 Chloride 100 mmol/L (98-107) 01/31/22 05:17 Carbon Dioxide 33 mmol/L (22-29) H 01/31/22 05:17 Anion Gap 12.8 (5-19) 01/31/22 05:17 BUN 20 mg/dL (8-23) 01/31/22 05:17 Creatinine 1.1 mg/dL (0.5-0.9) H 01/31/22 05:17 GFR Calculation Not Reportable 01/31/22 05:17 Glucose 136 mg/dL (65-115) H 01/31/22 05:17 POC Glucose 144 mg/dL (70-110) H 01/31/22 06:45 Estimat Average Glucose 166 01/28/22 17:45 Hemoglobin A1c 7.4 % (4.0-6.0) H 01/28/22 17:45 Calculated Osmolality 299 mOsm/kg (285-295) H 01/31/22 05:17 Calcium 9.4 mg/dL (8.5-10.5) 01/31/22 05:17 Phosphorus 3.1 mg/dL (2.5-4.5) 01/31/22 05:17 Magnesium 2.1 mg/dL (1.7-2.3) 01/31/22 05:17 Total Bilirubin 0.6 mg/dL (0.15-1.2) 01/31/22 05:17 AST 14 U/L (0-32) 01/31/22 05:17 ALT 8 U/L (0-33) 01/31/22 05:17 Alkaline Phosphatase 72 U/L (35-105) 01/31/22 05:17 Troponin T Baseline 31 ng/L (0-10) H 01/28/22 17:45 Troponin T 120 Minute 28.96 ng/L (0-10) H 01/28/22 19:27 Delta Troponin T -2.04 ABS# (0-10) L 01/28/22 19:27 Troponin T Hi Sens 6Hr 27.14 ng/L (0-10) H 01/28/22 23:15 Troponin T Hi Sens 6Hr Delta -3.86 ng/L (0-12) L 01/28/22 23:15 C-Reactive Protein 3.0 mg/L (0.0-4.9) 01/31/22 05:17 NT-Pro-B Natriuret Pep 389 pg/mL (0-125) H 01/31/22 05:17 Total Protein 5.8 g/dL (6.6-8.7) L 01/31/22 05:17 Albumin 3.6 g/dL (3.5-5.2) 01/31/22 05:17 Globulin 2.2 g/dL (1.3-4.6) 01/31/22 05:17 Triglycerides 167 mg/dL (0-150) H 01/28/22 19:27 Cholesterol 128 mg/dL (0-200) 01/28/22 19:27 LDL Cholesterol, Calc 53 mg/dL (50-129) 01/28/22 19: HDL Cholesterol 42 mg/dL (60-100) L 01/28/22 19:27 LDL/HDL Ratio 1.26 RATIO (0.00-3.22) 01/28/22 19: Cholesterol/HDL Ratio 3.05 mg/dL (0.0-4.40) 01/28/22 19:27 TSH 0.27 uIU/mL (0.27-4.20) 01/28/22 17:45 Free T4 1.83 ng/dL (0.82-1.77) H 01/28/22 17:45 Urine Color Yellow (Yellow) 01/29/22 01:50 Urine Appearance Clear (CLEAR) 01/29/22 01:50 Urine pH 6 (5-7) 01/29/22 01:50 Ur Specific [place] 1.015 (1.005-1.030) 01/29/22 01:50 Urine Protein Neg (Negative) 01/29/22 01:50 Urine Glucose (UA) Norm (Normal) 01/29/22 01:50 Urine Ketones Negative (Negative) 01/29/22 01:50 Urine Blood Neg (Negative) 01/29/22 01:50 Urine Nitrate Negative (Negative) 01/29/22 01:50 Urine Bilirubin Neg (Negative) 01/29/22 01:50 Urine Urobilinogen Neg mg/dL (Negative) 01/29/22 01:50 Ur Leukocyte Esterase Negative (Negative) 01/29/22 01:50 Coronavirus 229E (PCR) Not detected (NOT DETECT) 01/28/22 17:43 SARS-CoV-2 (PCR) Not detected (NOT DETECT) 01/28/22 17:43 Vitals Last Vital Signs Temp 98.5 F 01/31/22 08:00 Pulse 61 01/31/22 08:00 Resp 16 01/31/22 08:00 BP 118/61 01/31/22 08:00 Pulse Ox 94 01/31/22 08:00 O2 Del Method 01/31/22 08:00 O2 Flow Rate 3 01/31/22 04:00 Discharge Plan Discharge Patient Disposition: Home Condition: Stable Prescriptions: New Cardizem LA 240 mg tablet extended release 24 hr 240 mg PO DAILY Qty: 90 2RF Continued prednisone 20 mg Tablet 40 mg PO DAILY Qty: 10 0RF sennosides-docusate sodium [Stool Softener-Laxative] 8.6-50 mg Tablet 1 tab PO BID Qty: 60 0RF pantoprazole 40 mg Tablet,Delayed Release (Dr/Ec) 40 mg PO DAILY Qty: 14 0RF lactulose 10 gram/15 mL solution 10 g PO DAILY PRN (Reason: constipation) Qty: 237 0RF furosemide [Lasix] 40 mg Tablet 40 mg PO BID 30 Days Qty: 60 0RF alprazolam 1 mg Tablet 0.5 mg PO BID 14 Days Qty: 14 0RF dofetilide 125 mcg capsule 250 mcg PO BID 30 Days Qty: 120 0RF hydrocodone-acetaminophen 10-325 mg Tablet 1 tab PO Q6H PRN (Reason: Pain) Qty: 14 0RF potassium chloride [Klor-Con M20] 20 mEq Tablet,Er Particles/Crystals 40 meq PO DAILY 30 Days Qty: 30 0RF montelukast 10 mg Tablet 1 mg PO BEDTIME Qty: 30 0RF zolpidem 10 mg Tablet 10 mg PO BEDTIME Qty: 30 0RF rosuvastatin 20 mg Tablet 20 mg PO DAILY 30 Days Qty: 30 0RF Xarelto 15 mg Tablet 15 mg PO DAILY Qty: 30 0RF Rx Instructions: must administer with evening meal albuterol sulfate 2.5 mg /3 mL (0.083 %) Solution For Nebulization 2.5 mg INHALATION Q4H PRN (Reason: Shortness Of Breath) albuterol sulfate 90 mcg/actuation Hfa Aerosol Inhaler 1 puff INHALATION QID PRN (Reason: Shortness Of Breath) Anoro Ellipta 62.5-25 mcg/actuation Blister With Device 1 inh INHALATION DAILY Discharge Orders: Discharge Order (Routine); Ordered 01/31/22 Ordered By: Shayy Chavez Other Ambulatory Orders: MCT/Event Monitor 21 Days (Routine) Timeframe: 3 Weeks Facility: [facility] - Location: Radiology Ordered By: Shayy Chavez Referrals: Massiel Cabezas MD [Physician] - 02/16/22 11:30 am (21 day event monitor: sundayFebruary 13 @ 1045 am follow-up with dr Leal due to Dr. Cabezas booked until April.) Discharge Diet: Cardiac Discharge Activity: Increase activity as tolerated Patient Instructions: Diltiazem (By mouth), A-fib (Atrial Fibrillation) (GEN), Opioid Safety Discharge Attestations Time Spent in Discharge Care*: less than 30 min Status at Discharge: Cognitive status at discharge: cognitively intact, Behavioral status at discharge: cooperative, Quality Metrics Clinical Quality Measures [ No reported AMI, CVA or VTE this stay] Coding Level of Care Code Acute Chg FW DC note Diagnoses Atrial fibrillation with RVR I48.91 Fatigue R53.83 Generalized weakness R53.1 Chronic anticoagulation Z79.01 Chronic kidney disease N18.9
[2022-01-31 11:30] VITALS: BP 118/61; PULSE 69; RESP 16; TEMP 37.1; O2SAT 94
[2022-01-31 11:51] VITALS: PULSE 71; RESP 16; O2SAT 96
== END 2022-01-31 14:11 | disposition home or self-care (01) | DRG 308 ==
LOC: ER 18:47 → MEDSURG 19:39
PROVIDERS: Emergency Medicine; Admitting Provider Family Medicine; Emergency Provider Emergency Medicine; Visit Provider Internal Medicine
DX: I48.91 Unspecified atrial fibrillation (principal); I50.31 Acute diastolic (congestive) heart failure; I13.0 Hypertensive heart and chronic kidney disease with heart failure and stage 1 through stage 4 chronic kidney disease, or unspecified chronic kidney disease; N17.9 Acute kidney failure, unspecified; I82.B12 Acute embolism and thrombosis of left subclavian vein; J43.2 Centrilobular emphysema; E11.65 Type 2 diabetes mellitus with hyperglycemia; E11.22 Type 2 diabetes mellitus with diabetic chronic kidney disease; N18.9 Chronic kidney disease, unspecified; F17.200 Nicotine dependence, unspecified, uncomplicated; F41.8 Other specified anxiety disorders; Z63.4 Disappearance and death of family member; Z86.718 Personal history of other venous thrombosis and embolism; M19.90 Unspecified osteoarthritis, unspecified site; Z79.52 Long term (current) use of systemic steroids; Z87.01 Personal history of pneumonia (recurrent); Z79.891 Long term (current) use of opiate analgesic; Z79.51 Long term (current) use of inhaled steroids; Z79.01 Long term (current) use of anticoagulants
CPT/HCPCS: 36415; 36416; 36600; 71045; 71275; 80051; 80053; 80061; 81003; 82330; 82805; 82962; 83036; 83735; 83880; 84100; 84439; 84443; 84484; 85025; 85378; 85610; 86140; 87635; 93005; 93970; 94664; 96372; 96374; 97165; 99285; J1815; J1940; J3490; J7512; Q9967

== ENCOUNTER 2022-02-07 17:03 | Emergency (ER) | payer MEDICARE, BC, SELFPAY ==
[2022-02-07 17:13] VITALS: PULSE 70; RESP 16; O2SAT 99; BMI 36.3
--- NOTE | 2022-02-07 17:15 | W.ED.ARRPALP ---
Documented by User: Torres Chairez DO 02/07/22 17:57 HPI - Arrhythmia/Palpitations General: Chief Complaint: Arrhythmia/Palpitations Stated Complaint: AFIB WITH RVR Time Seen by Provider: 02/07/22 17:03 Source: patient Mode of arrival: EMS History of Present Illness: 71-year-old female presents emergency room with complaint of atrial fibrillation. She states earlier today her heart rate was racing into the 140s and 150s states it was intermittently that way for most of the day and then converted before she came in. On arrival here she is in normal sinus rhythm with occasional PVCs with compensatory pauses and the rate in the low 70s to upper 60s. She is on diltiazem and dofetilide. She is normally on 3 L by nasal cannula and she is maintaining a normal saturation at that level. She denies any chest pain. No orthopnea. MD complaint: rapid heart beat and atrial fibrillation Onset (ago): hour(s) Duration: intermittent Severity: mild Context: occurred during rest Arrhythmia history: atrial fibrillation Associated symptoms: Deny anxiety, cough, diaphoresis, muscle cramps, nausea, paresthesias, pre-syncope, sense of impending doom, short of breath, syncope or vomiting Treatments prior to arrival: calcium channel huan and other (Dofetilide) Review of Systems Const: Reports: fatigue; Denies: fever(s), chills, malaise or diaphoresis ENMT: Denies: throat pain, ear or mastoid pain, nasal discharge or nasal congestion Card: Reports: palpitations, irregular heart rhythm and dyspnea on exertion; Denies: chest pain, edema, swelling of feet/ankles, lightheadedness, syncope or pre-syncope Resp: Denies: dyspnea, productive cough or non-productive cough GI: Denies: abdominal pain, nausea or vomiting : Denies: flank pain, difficulty voiding, dysuria, urinary frequency or urinary urgency Musc: Denies: muscle cramps Skin/Breast: Denies: rash or pruritus Psych: Denies: anxiety PFSH ED PFSH: Medical History Abdominal pain Acute diastolic heart failure Acute kidney injury superimposed on CKD HERBER (acute kidney injury) Atrial fibrillation Atrial fibrillation with rapid ventricular response Atrial fibrillation with RVR Chronic anticoagulation Chronic kidney disease COPD (chronic obstructive pulmonary disease) Dehydration Fatigue Generalized weakness History of syncope HTN (hypertension) with goal to be determined Hypokalemia Right heart failure T2DM (type 2 diabetes mellitus) Volume overload Surgical History Hx of cholecystectomy Social History Smoking and tobacco status: current every day smoker Alcohol intake: never Marital status: / Physical Exam Const: COMMON NORMALS: no acute distress GENERAL APPEARANCE: cooperative and comfortable ORIENTATION/CONSCIOUSNESS: Yes awake, Yes oriented to person, Yes oriented to place and Yes oriented to time HENMT: COMMON NORMALS: normocephalic, atraumatic and hearing grossly normal bilaterally HEAD & SCALP: normocephalic and atraumatic Resp: COMMON NORMALS: normal respiratory effort, No retractions, No use of accessory muscles and clear to auscultation bilaterally AUSCULTATION: clear to auscultation bilaterally Cardio: COMMON NORMALS: regular rate, regular rhythm and No murmurs present (Cardio) RATE: regular rate RHYTHM: regular rhythm GI: COMMON NORMALS: Soft to palpation and No hepatosplenomegaly present AUSCULTATION: Yes normoactive bowel sounds PALPATION: Yes Soft to palpation, No Tenderness to palpation present (GI), No Guarding due to palpation present (GI) and Yes No hepatosplenomegaly present Extremity: COMMON NORMALS: normal to inspection, capillary refill normal, no clubbing, cyanosis or edema, no calf tenderness and no pedal edema Neuro: SENSORIUM/ORIENTATION: Yes oriented to person, Yes oriented to place and Yes oriented to time Skin: COMMON NORMALS: no rashes or lesions noted GENERAL SKIN EXAM: no rashes or lesions noted Course Vital Signs: Vital signs: Vital Signs Pulse Rate 68 02/07/22 18:30 Respiratory Rate 18 02/07/22 18:30 Pulse Oximetry 99 02/07/22 18:30 Oxygen Delivery Me thod 02/07/22 17:13 Oxygen Flow Rate 4 02/07/22 17:13 MDM - Arrhythmia/Palpitations Medical Decision Making Care signed out to Dr. Bautista at change of shift. See final notes for diagnosis and disposition. Medical Records I reviewed the patient's medical records. Lab Data I reviewed the patient's lab results. : 02/07/22 18:46 02/07/22 18:46 Radiology Impressions Chest X-Ray 02/07/22 17:40 IMPRESSION: Cardiomegaly with possible mild interstitial edema in the lung bases. Laboratory Results WBC 12.9 10^3/uL (4.0-10.0) H 02/07/22 18:46 RBC 4.82 10^6/uL (4.1-5.3) 02/07/22 18:46 Hgb 14.8 g/dL (11.5-15.3) 02/07/22 18:46 Hct 46.9 % (37.0-47.0) 02/07/22 18:46 MCV 97.3 fl (81-99) 02/07/22 18:46 MCH 30.7 pg (28.0-34.0) 02/07/22 18:46 MCHC 31.6 g/dL (30.0-36.0) 02/07/22 18:46 RDW 13.4 % (12.1-15.1) 02/07/22 18:46 Plt Count 357 10^3/cmm (130-400) 02/07/22 18:46 MPV 9.7 fL (7.4-10.4) 02/07/22 18:46 Neut % (Auto) 87.6 % 02/07/22 18:46 Lymph % (Auto) 7.2 % 02/07/22 18:46 [place] % (Auto) 4.7 % 02/07/22 18:46 Eos % (Auto) 0.0 % 02/07/22 18:46 Baso % (Auto) 0.1 % 02/07/22 18:46 Neut # (Auto) 11.26 10^3/uL (1.8-7.7) H 02/07/22 18:46 Lymph # (Auto) 0.9 10^3/uL (0.8-4.8) 02/07/22 18:46 [place] # (Auto) 0.6 10^3/uL (0.2-0.9) 02/07/22 18:46 Eos # (Auto) 0.0 10^3/uL (0.0-0.8) 02/07/22 18:46 Baso # (Auto) 0.0 10^3/uL (0.0-0.1) 02/07/22 18:46 Nucleated RBC % (auto) 0 % 02/07/22 18:46 Nucleated RBCs # 0.0 /100WBC 02/07/22 18:46 Sodium 141 mmol/L (136-145) 02/07/22 18:46 Potassium 4.2 mmol/L (3.5-5.1) 02/07/22 18:46 Chloride 96 mmol/L (98-107) L 02/07/22 18:46 Carbon Dioxide 35 mmol/L (22-29) H 02/07/22 18:46 Anion Gap 14.2 (5-19) 02/07/22 18:46 BUN 20 mg/dL (8-23) 02/07/22 18:46 Creatinine 1.3 mg/dL (0.5-0.9) H 02/07/22 18:46 GFR Calculation Not Reportable 02/07/22 18:46 Glucose 267 mg/dL (65-115) H 02/07/22 18:46 Calculated Osmolality 304 mOsm/kg (285-295) H 02/07/22 18:46 Calcium 9.4 mg/dL (8.5-10.5) 02/07/22 18:46 Discharge Plan Discharge Patient Disposition: Home Clinical Impression: Atrial fibrillation Condition: Stable Prescriptions: No Action Anoro Ellipta 62.5-25 mcg/actuation blister with device 1 inh INHALATION DAILY Qty: 60 2RF Xarelto 15 mg tablet 15 mg PO DAILY Qty: 30 2RF Rx Instructions: must administer with evening meal furosemide [Lasix] 40 mg tablet 40 mg PO BID 30 Days Qty: 60 2RF hydrocodone-acetaminophen 10-325 mg tablet 1 tab PO Q6H PRN (Reason: Pain) 30 Days Qty: 120 0RF prednisone 20 mg Tablet 40 mg PO DAILY Qty: 10 0RF sennosides-docusate sodium [Stool Softener-Laxative] 8.6-50 mg Tablet 1 tab PO BID Qty: 60 0RF pantoprazole 40 mg Tablet,Delayed Release (Dr/Ec) 40 mg PO DAILY Qty: 14 0RF lactulose 10 gram/15 mL solution 10 g PO DAILY PRN (Reason: constipation) Qty: 237 0RF alprazolam 1 mg Tablet 0.5 mg PO BID 14 Days Qty: 14 0RF dofetilide 125 mcg capsule 250 mcg PO BID 30 Days Qty: 120 0RF montelukast 10 mg Tablet 1 mg PO BEDTIME Qty: 30 0RF zolpidem 10 mg Tablet 10 mg PO BEDTIME Qty: 30 0RF rosuvastatin 20 mg Tablet 20 mg PO DAILY 30 Days Qty: 30 0RF albuterol sulfate 2.5 mg /3 mL (0.083 %) Solution For Nebulization 2.5 mg INHALATION Q4H PRN (Reason: Shortness Of Breath) albuterol sulfate 90 mcg/actuation Hfa Aerosol Inhaler 1 puff INHALATION QID PRN (Reason: Shortness Of Breath) Cardizem LA 240 mg tablet extended release 24 hr 240 mg PO DAILY Qty: 90 2RF Discharge Orders: Discharge ED (Routine); Ordered 02/07/22 Ordered By: Roya Bautista Discharge Diet: Advance as tolerated Discharge Activity: Resume usual activity Patient Instructions: A-fib (Atrial Fibrillation) (ED) Coding Level of Care Code ED Skin Specialist for Chg Fwd Exam Detailed Documented by User: Roya Bautista MD 02/07/22 19:59 HPI - Arrhythmia/Palpitations General: Chief Complaint: Arrhythmia/Palpitations Stated Complaint: AFIB WITH RVR Time Seen by Provider: 02/07/22 17:03 [facility] ED PFSH: Medical History Abdominal pain Acute diastolic heart failure Acute kidney injury superimposed on CKD HERBER (acute kidney injury) Atrial fibrillation Atrial fibrillation with rapid ventricular response Atrial fibrillation with RVR Chronic anticoagulation Chronic kidney disease COPD (chronic obstructive pulmonary disease) Dehydration Fatigue Generalized weakness History of syncope HTN (hypertension) with goal to be determined Hypokalemia Right heart failure T2DM (type 2 diabetes mellitus) Volume overload Surgical History Hx of cholecystectomy Social History Smoking and tobacco status: current every day smoker Alcohol intake: never Marital status: / Course Vital Signs: Vital signs: Vital Signs Pulse Rate 68 02/07/22 18:30 Respiratory Rate 18 02/07/22 18:30 Pulse Oximetry 99 02/07/22 18:30 Oxygen Delivery Me thod 02/07/22 17:13 Oxygen Flow Rate 4 02/07/22 17:13 MDM - Arrhythmia/Palpitations Medical Decision Making Care signed out to Dr. Bautista at change of shift. See final notes for diagnosis and disposition. Patient presents with Ivis alvarenga she has been in normal sinus rhythm here blood work is normal she stable here she stable for discharge she is to follow-up with her nurse practitioner manager return if worsening she understands agrees plan. Lab Data : 02/07/22 18:46 02/07/22 18:46 Radiology Impressions Chest X-Ray 02/07/22 17:40 IMPRESSION: Cardiomegaly with possible mild interstitial edema in the lung bases. Laboratory Results WBC 12.9 10^3/uL (4.0-10.0) H 02/07/22 18:46 RBC 4.82 10^6/uL (4.1-5.3) 02/07/22 18:46 Hgb 14.8 g/dL (11.5-15.3) 02/07/22 18:46 Hct 46.9 % (37.0-47.0) 02/07/22 18:46 MCV 97.3 fl (81-99) 02/07/22 18:46 MCH 30.7 pg (28.0-34.0) 02/07/22 18:46 MCHC 31.6 g/dL (30.0-36.0) 02/07/22 18:46 RDW 13.4 % (12.1-15.1) 02/07/22 18:46 Plt Count 357 10^3/cmm (130-400) 02/07/22 18:46 MPV 9.7 fL (7.4-10.4) 02/07/22 18:46 Neut % (Auto) 87.6 % 02/07/22 18:46 Lymph % (Auto) 7.2 % 02/07/22 18:46 [place] % (Auto) 4.7 % 02/07/22 18:46 Eos % (Auto) 0.0 % 02/07/22 18:46 Baso % (Auto) 0.1 % 02/07/22 18:46 Neut # (Auto) 11.26 10^3/uL (1.8-7.7) H 02/07/22 18:46 Lymph # (Auto) 0.9 10^3/uL (0.8-4.8) 02/07/22 18:46 [place] # (Auto) 0.6 10^3/uL (0.2-0.9) 02/07/22 18:46 Eos # (Auto) 0.0 10^3/uL (0.0-0.8) 02/07/22 18:46 Baso # (Auto) 0.0 10^3/uL (0.0-0.1) 02/07/22 18:46 Nucleated RBC % (auto) 0 % 02/07/22 18:46 Nucleated RBCs # 0.0 /100WBC 02/07/22 18:46 Sodium 141 mmol/L (136-145) 02/07/22 18:46 Potassium 4.2 mmol/L (3.5-5.1) 02/07/22 18:46 Chloride 96 mmol/L (98-107) L 02/07/22 18:46 Carbon Dioxide 35 mmol/L (22-29) H 02/07/22 18:46 Anion Gap 14.2 (5-19) 02/07/22 18:46 BUN 20 mg/dL (8-23) 02/07/22 18:46 Creatinine 1.3 mg/dL (0.5-0.9) H 02/07/22 18:46 GFR Calculation Not Reportable 02/07/22 18:46 Glucose 267 mg/dL (65-115) H 02/07/22 18:46 Calculated Osmolality 304 mOsm/kg (285-295) H 02/07/22 18:46 Calcium 9.4 mg/dL (8.5-10.5) 02/07/22 18:46 Discharge Plan Discharge Patient Disposition: Home Clinical Impression: Atrial fibrillation Condition: Stable Prescriptions: No Action Anoro Ellipta 62.5-25 mcg/actuation blister with device 1 inh INHALATION DAILY Qty: 60 2RF Xarelto 15 mg tablet 15 mg PO DAILY Qty: 30 2RF Rx Instructions: must administer with evening meal furosemide [Lasix] 40 mg tablet 40 mg PO BID 30 Days Qty: 60 2RF hydrocodone-acetaminophen 10-325 mg tablet 1 tab PO Q6H PRN (Reason: Pain) 30 Days Qty: 120 0RF prednisone 20 mg Tablet 40 mg PO DAILY Qty: 10 0RF sennosides-docusate sodium [Stool Softener-Laxative] 8.6-50 mg Tablet 1 tab PO BID Qty: 60 0RF pantoprazole 40 mg Tablet,Delayed Release (Dr/Ec) 40 mg PO DAILY Qty: 14 0RF lactulose 10 gram/15 mL solution 10 g PO DAILY PRN (Reason: constipation) Qty: 237 0RF alprazolam 1 mg Tablet 0.5 mg PO BID 14 Days Qty: 14 0RF dofetilide 125 mcg capsule 250 mcg PO BID 30 Days Qty: 120 0RF montelukast 10 mg Tablet 1 mg PO BEDTIME Qty: 30 0RF zolpidem 10 mg Tablet 10 mg PO BEDTIME Qty: 30 0RF rosuvastatin 20 mg Tablet 20 mg PO DAILY 30 Days Qty: 30 0RF albuterol sulfate 2.5 mg /3 mL (0.083 %) Solution For Nebulization 2.5 mg INHALATION Q4H PRN (Reason: Shortness Of Breath) albuterol sulfate 90 mcg/actuation Hfa Aerosol Inhaler 1 puff INHALATION QID PRN (Reason: Shortness Of Breath) Cardizem LA 240 mg tablet extended release 24 hr 240 mg PO DAILY Qty: 90 2RF Discharge Orders: Discharge ED (Routine); Ordered 02/07/22 Ordered By: Roya Bautista Discharge Diet: Advance as tolerated Discharge Activity: Resume usual activity Patient Instructions: A-fib (Atrial Fibrillation) (ED) Coding Level of Care Code ED Skin Specialist for [place] Fwd Exam Detailed
[2022-02-07 17:18] VITALS: PULSE 68; RESP 22; O2SAT 98
[2022-02-07 17:30] VITALS: PULSE 75; RESP 17; O2SAT 98
--- NOTE | 2022-02-07 17:40 | XRR_ITS ---
PROCEDURE INFORMATION: Exam: XR Chest Exam date and time: 02/07/2022 6:13 PM Age: 71 years old Clinical indication: Cough and dyspnea; Additional info: Dyspnea/cough TECHNIQUE: Imaging protocol: Radiologic exam of the chest. Views: 1 view. COMPARISON: CR (CHEST, ) 01/28/2022 5:24 PM FINDINGS: Lungs: Mild interstitial opacities in the lung bases. Pleural spaces: Unremarkable. No pleural effusion. No pneumothorax. Heart/Mediastinum: Stable cardiomegaly. Bones/joints: Unremarkable. XR/XR chest 1V portable [id number] IMPRESSION: Cardiomegaly with possible mild interstitial edema in the lung bases.
[2022-02-07 18:05] VITALS: O2SAT 98
[2022-02-07 18:30] VITALS: PULSE 68; RESP 18; O2SAT 99
[2022-02-07 19:15] LABS: Basophils % 0.1 %; Hematocrit 46.9 % (37.0-47.0); Hemoglobin 14.8 g/dL (11.5-15.3); Lymphocytes # 0.9 10^3/uL (0.8-4.8); Lymphocytes % 7.2 %; Mean Corpuscular HGB Conc 31.6 g/dL (30.0-36.0); Mean Corpuscular Hemoglobin 30.7 pg (28.0-34.0); Mean Corpuscular Volume 97.3 fl (81-99); Mean Platelet Volume 9.7 fL (7.4-10.4); Monocytes # 0.6 10^3/uL (0.2-0.9); Monocytes % 4.7 %; Neutrophils # 11.26 10^3/uL (1.8-7.7); Neutrophils % 87.6 %; Nucleated Red Blood Cells % 0 %; Platelet Count 357 10^3/cmm (130-400); Red Blood Count 4.82 10^6/uL (4.1-5.3); Red Cell Distribution Width 13.4 % (12.1-15.1); White Blood Count 12.9 10^3/uL (4.0-10.0)
[2022-02-07 19:44] LABS: Anion Gap 14.2 (5-19); Blood Urea Nitrogen 20 mg/dL (8-23); Calcium 9.4 mg/dL (8.5-10.5); Carbon Dioxide 35 mmol/L (22-29); Chloride 96 mmol/L (98-107); Glucose 267 mg/dL (65-115); Osmolality Calculated 304 mOsm/kg (285-295); Potassium 4.2 mmol/L (3.5-5.1); Sodium 141 mmol/L (136-145)
[2022-02-07 20:13] VITALS: BP 111/57; PULSE 62; RESP 14; O2SAT 100
== END 2022-02-07 20:19 | disposition home or self-care (01) ==
PROVIDERS: Family Medicine; Emergency Provider Emergency Medicine
DX: I48.91 Unspecified atrial fibrillation (principal); I11.0 Hypertensive heart disease with heart failure; I50.9 Heart failure, unspecified; J44.9 Chronic obstructive pulmonary disease, unspecified; E11.9 Type 2 diabetes mellitus without complications; F17.210 Nicotine dependence, cigarettes, uncomplicated
CPT/HCPCS: 71045; 80048; 85025; 99285

== ENCOUNTER 2022-02-19 10:40 | Emergency (ER) | payer MEDICARE, BC, SELFPAY ==
--- NOTE | 2022-02-19 10:46 | ECG_ITS ---
[facility] Test Date: 2022-02-19 Pat Name: Rebeca Álvarez Department: Room: Gender: Female Telemetry Nurse: : 1950 Requested By: Elena Gonzales Order Number: [id number] Mohamud MD: Diandra Fall M.D. Measurements Intervals [place] Rate: 118 P: TN: QRS: 52 QRSD: 94 T: 56 QT: 361 QTc: 507 Interpretive Statements ATRIAL FIBRILLATION WITH RAPID VENTRICULAR RESPONSE MODERATE ST DEPRESSION [0.05+ mV ST DEPRESSION] Compared to ECG 01/28/2022 23:27:32 ST (T wave) deviation now present T-wave abnormality no longer present Possible ischemia no longer present Electronically Signed On 02-19-2022 13:02:46 CDT by Diandra Fall M.D. [email or web address]
[2022-02-19 10:52] VITALS: BP 113/60; PULSE 90; RESP 14; TEMP 36.6; O2SAT 95; BMI 37.9
--- NOTE | 2022-02-19 11:05 | XRR_ITS ---
PROCEDURE INFORMATION: Exam: XR Chest Exam date and time: 02/19/2022 11:47 AM Age: 71 years old Clinical indication: Pain; Angina pectoris; Additional info: Cp TECHNIQUE: Imaging protocol: Radiologic exam of the chest. Views: 1 view. COMPARISON: CR (CHEST, ) 02/07/2022 6:13 PM FINDINGS: Lungs: Unremarkable. No consolidation. Pleural spaces: Unremarkable. No pleural effusion. No pneumothorax. Heart/Mediastinum: Cardiomegaly similar to the prior study. Vasculature: There is calcified plaque in the aortic knob. Bones/joints: Unremarkable. Soft tissues: There are metallic clips in the right axillary region. XR/XR chest 1V portable [id number] IMPRESSION: Cardiomegaly, similar to the prior study. No evidence for acute cardiopulmonary disease.
--- NOTE | 2022-02-19 11:25 | W.ED.ARRPALP ---
HPI - Arrhythmia/Palpitations General: Chief Complaint: General Medical Stated Complaint: Possible afib Time Seen by Provider: 02/19/22 11:24 History of Present Illness: Ms. Álvarez is a 71-year-old lady with significant past medical history of COPD with chronic hypoxic respiratory failure, atrial fibrillation, heart failure who presents to the emergency department due to abnormal heart rhythm. She reports over the past week or so been feeling generally unwell with some cough and congestion however starting yesterday developed abnormal heart rhythm consistent with previous episodes of atrial fibrillation. She associates some chest pressure and epigastric abdominal pain with this as well as continued worsening of her generalized malaise. Intensity symptoms is moderate. Course has worsened. No other specific changes in health, exacerbating, or alleviating factors identified. Onset (ago): day(s) Duration: constant Severity: moderate Arrhythmia history: atrial fibrillation Associated symptoms: Reports cough, nausea, short of breath and other Review of Systems General: Reports: 10 or more systems reviewed and unremarkable except in HPI and below GI: Reports: nausea PFSH ED PFSH: Medical History Abdominal pain Acute diastolic heart failure Acute kidney injury superimposed on CKD HERBER (acute kidney injury) Atrial fibrillation Atrial fibrillation with rapid ventricular response Atrial fibrillation with RVR Chronic anticoagulation Chronic kidney disease COPD (chronic obstructive pulmonary disease) Dehydration Fatigue Generalized weakness History of syncope HTN (hypertension) with goal to be determined Hypokalemia Right heart failure T2DM (type 2 diabetes mellitus) Volume overload Surgical History Hx of cholecystectomy Social History Smoking and tobacco status: current every day smoker Alcohol intake: never Marital status: / Physical Exam Const: COMMON NORMALS: alert GENERAL APPEARANCE: cooperative, well developed and ill appearing (Mildly) HENMT: COMMON NORMALS: normocephalic and atraumatic HEAD & SCALP: normocephalic and atraumatic Eye: COMMON NORMALS: conjunctivae normal CONJUNCTIVA: Yes conjunctivae normal SCLERA: sclerae normal Neck/C-Spine: COMMON NORMALS: supple GENERAL: Yes trachea midline Resp: EFFORT & INSPECTION: Yes able to speak in complete sentences AUSCULTATION: diminished lung sounds Cardio: RATE: tachycardic RHYTHM: abnormal rhythm irregularly irregular GI: COMMON NORMALS: Soft to palpation PALPATION: Yes Soft to palpation and No Tenderness to palpation present (GI) PERCUSSION: normal to percussion Extremity: GENERAL: Yes normal exam except as noted and No edema Neuro: COMMON NORMALS: moves all extremities SENSORIUM/ORIENTATION: Yes alert and No Orientation impaired Psych: COMMON NORMALS: mental status grossly normal and Normal thought process present THOUGHT PROCESS: Normal thought process present Course ED course: - Patient was seen and evaluated by me at bedside - Patient placed on cardiac monitors, IV access obtained - Initial evaluation notable for exam as above. - Labs and xrays personally interpreted by me. EKG notable for A. fib with RVR, no STEMI - Fluids, diltiazem given - Labs notable for minimal leukocytosis and hemoconcentration which should improve with fluids. Metabolic panel notable for hypokalemia, replenishment ordered. Delta troponin negative. TSH normal. COVID-negative. - Imaging notable for no lobar consolidation or pneumothorax. - Upon serial reexamination after treatment the patient was improved. - Case discussed with cardiology regarding medications, plan to add as needed lower dose of diltiazem to baseline medication regimen. -Repeat EKG improved with rate control and patient had sustained rate control even with ambulation. - Based on patient history, evaluation, and testing as interpreted the most likely cause of the patient's condition is A. fib with RVR - The results of ED evaluation were discussed with the patient including possible disposition options. Patient comfortable with discharge. I discussed prescriptions and/or symptomatic cares (if applicable) including appropriate and responsible use, followup plan, and return precautions. The patient verbalized understanding and felt safe for discharge. - Patient discharged in satisfactory condition. Note: Click bubbles or prepopulated bullock in note writing are used for assistance with data collection and billing and are inherently more limited than narrative and other text portions of this note. Please use narrative for additional clinical history and defer to narrative/free test for any case of contradictory information. If information appears in only free text or click bubble it should be considered present or absent as reported. Please contact note technical proposal writer for clarifications of clinical information or contradictory information. MDM is a brief summary, contradictory or erroneous seeming information should be clarified and full note should be reviewed. Vital Signs: Vital signs: Vital Signs Temperature 97.9 F 02/19/22 10:52 Pulse Rate 67 02/19/22 16:50 Respiratory Rate 18 02/19/22 16:50 Blood Pressure 117/71 02/19/22 16:50 Pulse Oximetry 97 02/19/22 16:50 Oxygen Delivery Me thod 02/19/22 16:50 Oxygen Flow Rate 3 02/19/22 10:52 MDM - Arrhythmia/Palpitations Medical Decision Making 71-year-old lady with history of paroxysmal A. fib presenting with symptomatic A. fib. Improved with single dose of IV Cardizem with sustained improvement. Discussed with cardiology. Plan to add as needed dose of diltiazem to baseline regimen. Patient comfortable with discharge. Satisfactory for outpatient management with strict return precautions given. Medical Records I reviewed the patient's medical records. Lab Data I reviewed the patient's lab results. : 02/19/22 12:42 02/19/22 13:15 Radiology Impressions Chest X-Ray 02/19/22 11:05 IMPRESSION: Cardiomegaly, similar to the prior study. No evidence for acute cardiopulmonary disease. Laboratory Results WBC 11.9 10^3/uL (4.0-10.0) H 02/19/22 12:42 RBC 5.22 10^6/uL (4.1-5.3) 02/19/22 12:42 Hgb 16.0 g/dL (11.5-15.3) H 02/19/22 12:42 Hct 50.6 % (37.0-47.0) H 02/19/22 12:42 MCV 96.9 fl (81-99) 02/19/22 12:42 MCH 30.7 pg (28.0-34.0) 02/19/22 12:42 MCHC 31.6 g/dL (30.0-36.0) 02/19/22 12:42 RDW 13.8 % (12.1-15.1) 02/19/22 12:42 Plt Count 322 10^3/cmm (130-400) 02/19/22 12:42 MPV 9.6 fL (7.4-10.4) 02/19/22 12:42 Neut % (Auto) 68.6 % 02/19/22 12:42 Lymph % (Auto) 21.3 % 02/19/22 12:42 Gibson % (Auto) 8.4 % 02/19/22 12:42 Eos % (Auto) 0.9 % 02/19/22 12:42 Baso % (Auto) 0.3 % 02/19/22 12:42 Neut # (Auto) 8.18 10^3/uL (1.8-7.7) H 02/19/22 12:42 Lymph # (Auto) 2.5 10^3/uL (0.8-4.8) 02/19/22 12:42 Gibson # (Auto) 1.0 10^3/uL (0.2-0.9) H 02/19/22 12:42 Eos # (Auto) 0.1 10^3/uL (0.0-0.8) 02/19/22 12:42 Baso # (Auto) 0.0 10^3/uL (0.0-0.1) 02/19/22 12:42 Nucleated RBC % (auto) 0 % 02/19/22 12:42 Nucleated RBCs # 0.0 /100WBC 02/19/22 12:42 Sodium 140 mmol/L (136-145) 02/19/22 13:15 Potassium 3.0 mmol/L (3.5-5.1) L 02/19/22 13:15 Chloride 102 mmol/L (98-107) 02/19/22 13:15 Carbon Dioxide 28 mmol/L (22-29) 02/19/22 13:15 Anion Gap 13.0 (5-19) 02/19/22 13:15 BUN 19 mg/dL (8-23) 02/19/22 13:15 Creatinine 1.1 mg/dL (0.5-0.9) H 02/19/22 13:15 GFR Calculation Not Reportable 02/19/22 13:15 Glucose 143 mg/dL (65-115) H 02/19/22 13:15 Calculated Osmolality 295 mOsm/kg (285-295) 02/19/22 13:15 Calcium 9.1 mg/dL (8.5-10.5) 02/19/22 13:15 Magnesium 2.0 mg/dL (1.7-2.3) 02/19/22 13:15 Total Bilirubin 0.6 mg/dL (0.15-1.2) 02/19/22 13:15 AST 20 U/L (0-32) 02/19/22 13:15 ALT 10 U/L (0-33) 02/19/22 13:15 Alkaline Phosphatase 83 U/L (35-105) 02/19/22 13:15 Troponin T Baseline 41 ng/L (0-10) H 02/19/22 12:42 Troponin T 120 Minute 32.92 ng/L (0-10) H 02/19/22 13:50 Delta Troponin T -8.08 ABS# (0-10) L 02/19/22 13:50 Total Protein 5.7 g/dL (6.6-8.7) L 02/19/22 13:15 Albumin 3.6 g/dL (3.5-5.2) 02/19/22 13:15 Globulin 2.1 g/dL (1.3-4.6) 02/19/22 13:15 TSH 0.32 uIU/mL (0.27-4.20) 02/19/22 13:15 SARS-CoV-2 Ag (Rapid) Negative (Negative) 02/19/22 13:50 Discharge Plan Discharge Patient Disposition: Home Clinical Impression: Atrial fibrillation with rapid ventricular response Condition: Stable Prescriptions: New Cardizem 30 mg tablet 30 mg PO Q8H PRN (Reason: tachycardia) Qty: 30 0RF Rx Instructions: for heart rate atrial fibrillation greater than 110 potassium chloride 20 mEq tablet extended release 20 meq PO DAILY Qty: 10 0RF No Action Anoro Ellipta 62.5-25 mcg/actuation blister with device 1 inh INHALATION DAILY Qty: 60 2RF Xarelto 15 mg tablet 15 mg PO DAILY Qty: 30 2RF Rx Instructions: must administer with evening meal furosemide [Lasix] 40 mg tablet 40 mg PO BID 30 Days Qty: 60 2RF hydrocodone-acetaminophen 10-325 mg tablet 1 tab PO Q6H PRN (Reason: Pain) 30 Days Qty: 120 0RF prednisone 20 mg Tablet 40 mg PO DAILY Qty: 10 0RF sennosides-docusate sodium [Stool Softener-Laxative] 8.6-50 mg Tablet 1 tab PO BID Qty: 60 0RF pantoprazole 40 mg Tablet,Delayed Release (Dr/Ec) 40 mg PO DAILY Qty: 14 0RF lactulose 10 gram/15 mL solution 10 g PO DAILY PRN (Reason: constipation) Qty: 237 0RF alprazolam 1 mg Tablet 0.5 mg PO BID 14 Days Qty: 14 0RF dofetilide 125 mcg capsule 250 mcg PO BID 30 Days Qty: 120 0RF montelukast 10 mg Tablet 1 mg PO BEDTIME Qty: 30 0RF zolpidem 10 mg Tablet 10 mg PO BEDTIME Qty: 30 0RF rosuvastatin 20 mg Tablet 20 mg PO DAILY 30 Days Qty: 30 0RF albuterol sulfate 2.5 mg /3 mL (0.083 %) Solution For Nebulization 2.5 mg INHALATION Q4H PRN (Reason: Shortness Of Breath) albuterol sulfate 90 mcg/actuation Hfa Aerosol Inhaler 1 puff INHALATION QID PRN (Reason: Shortness Of Breath) Cardizem LA 240 mg tablet extended release 24 hr 240 mg PO DAILY Qty: 90 2RF Discharge Orders: Discharge ED (Routine); Ordered 02/19/22 Ordered By: Dhruv Hensley Discharge Diet: Usual diet Discharge Activity: Increase activity as tolerated Patient Instructions: A-fib (Atrial Fibrillation) (ED), Hypokalemia (ED) Activity Restrictions/Additional Instructions: Thank you for visiting the emergency department. You were seen evaluated for generalized symptoms including palpitations. This most likely is due to atrial fibrillation. This may have been caused by low potassium and other electrolyte abnormalities. In discussion with cardiology we will plan to continue your current medication regimen. For the low potassium I will prescribe potassium supplementation. Additionally I will prescribe 30 mg of more rapid acting diltiazem which you can take in addition to your Cardizem LA as needed every 8 hours for atrial fibrillation with rates greater than 110. Additionally I will message case management for follow-up with cardiology. You need repeat lab work within 1 week. Please follow-up with your primary care provider. Please return to the emergency department for worsening symptoms or anything else that you are concerned about and feel needs emergency department evaluation. Coding Level of Care Code ED Die Cast Operator for Emely F[place]in[place] Exam Comprehensive
[2022-02-19 12:54] LABS: Basophils % 0.3 %; Eosinophils # 0.1 10^3/uL (0.0-0.8); Eosinophils % 0.9 %; Hematocrit 50.6 % (37.0-47.0); Lymphocytes # 2.5 10^3/uL (0.8-4.8); Lymphocytes % 21.3 %; Mean Corpuscular HGB Conc 31.6 g/dL (30.0-36.0); Mean Corpuscular Hemoglobin 30.7 pg (28.0-34.0); Mean Corpuscular Volume 96.9 fl (81-99); Mean Platelet Volume 9.6 fL (7.4-10.4); Monocytes % 8.4 %; Neutrophils # 8.18 10^3/uL (1.8-7.7); Neutrophils % 68.6 %; Nucleated Red Blood Cells % 0 %; Platelet Count 322 10^3/cmm (130-400); Red Blood Count 5.22 10^6/uL (4.1-5.3); Red Cell Distribution Width 13.8 % (12.1-15.1); White Blood Count 11.9 10^3/uL (4.0-10.0)
[2022-02-19] MEDS: dilTIAZem 5 mg/mL SDV 5 mL 20 MG IVP (12:58)
[2022-02-19] MEDS: sodium chloride 0.9% 500 ML 999 ML IV (12:58)
--- NOTE | 2022-02-19 13:05 | ECG_ITS ---
[facility] Test Date: 2022-02-19 Pat Name: Rebeca Álvarez Department: Room: Gender: Female Floral Specialist: : 1950 Requested By: Elena Gonzales Order Number: [id number] Mohamud MD: Diandra Fall M.D. Measurements Intervals [place] Rate: 72 P: -58 [place]: 172 QRS: 0 QRSD: 112 T: 79 QT: 449 QTc: 493 Interpretive Statements ECTOPIC ATRIAL RHYTHM WITH OCCASIONAL SUPRAVENTRICULAR PREMATURE COMPLEXES MODERATE INTRAVENTRICULAR CONDUCTION DELAY [110+ ms QRS DURATION] MODERATE T-WAVE ABNORMALITY, CONSIDER ANTEROLATERAL ISCHEMIA Compared to ECG 02/19/2022 10:46:40 Ectopic atrial rhythm now present Intraventricular conduction delay now present T-wave abnormality now present Possible ischemia now present Atrial fibrillation no longer present ST (T wave) deviation no longer present Electronically Signed On 02-22-2022 17:37:59 CDT by Diandra Fall M.D. [id number]
[2022-02-19 13:12] LABS: Troponin(5th) Baseline 41 ng/L (0-10)
[2022-02-19 13:22] VITALS: BP 113/70; PULSE 64; RESP 18; O2SAT 95
[2022-02-19 14:01] LABS: Alanine Aminotransferase 10 U/L (0-33); Albumin Level 3.6 g/dL (3.5-5.2); Alkaline Phosphatase 83 U/L (35-105); Aspartate Amino Transferase 20 U/L (0-32); Blood Urea Nitrogen 19 mg/dL (8-23); Calcium 9.1 mg/dL (8.5-10.5); Carbon Dioxide 28 mmol/L (22-29); Chloride 102 mmol/L (98-107); Globulin 2.1 g/dL (1.3-4.6); Glucose 143 mg/dL (65-115); Osmolality Calculated 295 mOsm/kg (285-295); Sodium 140 mmol/L (136-145); Thyroid Stimulating Hormone 0.32 uIU/mL (0.27-4.20); Total Bilirubin 0.6 mg/dL (0.15-1.2); Total Protein 5.7 g/dL (6.6-8.7)
[2022-02-19 14:30] LABS: SARS Covid-2 Antigen Negative (Negative)
[2022-02-19 14:31] LABS: Troponin 5 2HR 32.92 ng/L (0-10)
[2022-02-19 15:00] LABS: Troponin 5 2HR Delta -8.08 ABS# (0-10)
[2022-02-19] MEDS: potassium chloride ER 20 mEq Tablet 40 MEQ PO (15:03)
[2022-02-19] MEDS: magnesium sulfate premix 2 GM/50 ML PIGGYBACK IV (15:03)
[2022-02-19 16:50] VITALS: BP 117/71; PULSE 67; RESP 18; O2SAT 97
--- NOTE | 2022-02-22 09:28 | DCPLANNER ---
Addendum entered by Staci Casey 02/24/22 07:36: Patient had a follow up appointment scheduled for 02.23.22 with Lis at [facility] - patient did attend appointment. Original Note: clerical manager had message to schedule a follow up appointment for patient with cardiology. clerical manager sent patients information to the front office staff at [facility]. Patients information will be printed and reviewed. Clinic will call patient with appointment information.
== END 2022-02-19 17:03 | disposition home or self-care (01) ==
PROVIDERS: Registered Nurse; Emergency Provider Emergency Medicine
DX: I48.20 Chronic atrial fibrillation, unspecified (principal); I11.0 Hypertensive heart disease with heart failure; I50.31 Acute diastolic (congestive) heart failure; J44.9 Chronic obstructive pulmonary disease, unspecified; E11.9 Type 2 diabetes mellitus without complications; F17.210 Nicotine dependence, cigarettes, uncomplicated; Z20.822 Contact with and (suspected) exposure to COVID-19
CPT/HCPCS: 36415; 71045; 80053; 83735; 84443; 84484; 85025; 87426; 93005; 96374; 96375; 99285; J3475; J3490; J7040

== ENCOUNTER → 2022-02-23 14:39 | Outpatient (BNVA) | payer MEDICARE, BC, SELFPAY | PROVIDERS: PCP Family Medicine; Visit Provider Nurse Practitioner Family | DX: I48.91 Unspecified atrial fibrillation (principal) | CPT/HCPCS: 93005; 99214 ==

== ENCOUNTER 2022-03-13 13:17 | Inpatient (IN) | payer MEDICARE, BC, SELFPAY ==
[2022-03-13] VITALS (8 sets, daily range): BP systolic 107–123; BP diastolic 61–75; PULSE 56–64; RESP 16–20; TEMP 36.9–37.2; O2SAT 94–96; BMI 34.7
--- NOTE | 2022-03-13 13:44 | ECG_ITS ---
[facility] Test Date: 2022-03-13 Pat Name: Rebeca Álvarez Department: Room: Gender: Female Delivery Helper: : 1950 Requested By: Torres Dupont Order Number: [id number] Mohamud MD: Massiel Cabezas M.D. Measurements Intervals [place] Rate: 54 P: 48 [place]: 226 QRS: 13 QRSD: 92 T: 43 QT: 449 QTc: 426 Interpretive Statements SINUS BRADYCARDIA WITH FIRST DEGREE AV BLOCK LOW QRS VOLTAGE IN PRECORDIAL LEADS [QRS DEFLECTION < 1.0 mV IN CHEST LEADS] PATTERN CONSISTENT WITH PULMONARY DISEASE Compared to ECG 02/19/2022 13:34:22 First degree AV block now present Low QRS voltage now present Ectopic atrial rhythm no longer present Intraventricular conduction delay no longer present T-wave abnormality no longer present Possible ischemia no longer present Electronically Signed On 03-14-2022 0:12:06 CDT by Massiel Cabezas M.D. [id number]
[2022-03-13 14:26] LABS: Basophils % 0.2 %; Eosinophils % 0.1 %; Hematocrit 44.4 % (37.0-47.0); Lymphocytes % 7.8 %; Mean Corpuscular HGB Conc 31.5 g/dL (30.0-36.0); Mean Corpuscular Volume 98.4 fl (81-99); Mean Platelet Volume 9.5 fL (7.4-10.4); Monocytes # 0.4 10^3/uL (0.2-0.9); Monocytes % 2.7 %; Neutrophils # 11.29 10^3/uL (1.8-7.7); Neutrophils % 88.7 %; Nucleated Red Blood Cells % 0 %; Platelet Count 336 10^3/cmm (130-400); Red Blood Count 4.51 10^6/uL (4.1-5.3); Red Cell Distribution Width 14.4 % (12.1-15.1); White Blood Count 12.7 10^3/uL (4.0-10.0)
[2022-03-13 14:46] LABS: Alanine Aminotransferase 7 U/L (0-33); Albumin Level 3.8 g/dL (3.5-5.2); Alkaline Phosphatase 86 U/L (35-105); Anion Gap 16.5 (5-19); Aspartate Amino Transferase 14 U/L (0-32); Blood Urea Nitrogen 19 mg/dL (8-23); Carbon Dioxide 30 mmol/L (22-29); Chloride 97 mmol/L (98-107); Globulin 2.8 g/dL (1.3-4.6); Glucose 194 mg/dL (65-115); Lipase 34 U/L (13-60); Osmolality Calculated 294 mOsm/kg (285-295); Potassium 5.5 mmol/L (3.5-5.1); Sodium 138 mmol/L (136-145); Total Bilirubin 0.4 mg/dL (0.15-1.2); Total Protein 6.6 g/dL (6.6-8.7)
[2022-03-13 16:01] LABS: Bilirubin Urine Neg (Negative); Blood Urine 3+ (Negative); Glucose Urine UA Norm (Normal); Ketones Urine Negative (Negative); Nitrate Urine Negative (Negative); Protein Urine 2+ (Negative); Specific Gravity, Urine 1.015 (1.005-1.030); Urine Appearance Bloody (CLEAR); Urine Color Red (Yellow); pH Urine 6 (5-7)
[2022-03-13 16:02] LABS: Add Urine Culture? Yes; Add Urine Microscopic? YES; Bacteria Urine 1+ /hpf; Leukocyte Esterase Urine Negative (Negative); RBC Urine TOO NUMEROUS TO CNT /hpf (0-2); Urobilinogen Urine Norm (Negative)
--- NOTE | 2022-03-13 17:28 | ED_ITS ---
HPI - General Adult General: Chief complaint: Urogenital-Female Stated complaint: possible AFIB Time Seen by Provider: 03/13/22 16:41 History of Present Illness: Patient is a 71-year-old female with a history of paroxysmal atrial fibrillation on Xarelto who presents emergency room with concerns of gross hematuria and diffuse abdominal pain for the last 2 days. Patient tells me that symptoms started 2 days ago and continues to have intermittent abdominal pain. Patient has any nausea/vomiting, fever/chills or melena or hematochezia. Patient has noted gross hematuria without passage of clots. Patient denies any dysuria. Patient has no other prior abdominal surgery. Patient decided to come to the emergency room for further evaluation. Onset:2 days ago Duration:2 days Location:home Severity:moderate Associated symptoms: Deny chest pain, dyspnea, nausea, rash, palpitations or vomiting Review of Systems Const: Denies: fever(s) or chills Eyes: Denies: change in vision ENMT: Denies: mouth pain Card: Denies: chest pain or palpitations Resp: Denies: dyspnea or non-productive cough GI: Reports: abdominal pain (+diffuse abd pain); Denies: nausea, vomiting or diarrhea : Reports: other (+hematuria); Denies: dysuria Musc: Denies: extremity pain Skin/Breast: Denies: rash or new lesions Neuro: Denies: weakness in extremities Psych: Reports: other (Normal mood) Mahesh/Lymph: Denies: easy bruising PFSH ED PFSH: Medical History Abdominal pain Acute diastolic heart failure Acute kidney injury superimposed on CKD HERBER (acute kidney injury) Atrial fibrillation Atrial fibrillation with rapid ventricular response Atrial fibrillation with RVR Chronic anticoagulation Chronic kidney disease COPD (chronic obstructive pulmonary disease) Dehydration Fatigue Generalized weakness History of syncope HTN (hypertension) with goal to be determined Hypokalemia Right heart failure T2DM (type 2 diabetes mellitus) Volume overload Surgical History Hx of cholecystectomy Social History Smoking and tobacco status: current every day smoker Alcohol intake: never Marital status: / Physical Exam Const: COMMON NORMALS: alert HENMT: COMMON NORMALS: atraumatic HEAD & SCALP: atraumatic MOUTH: moist mucous membranes not abnormal Eye: COMMON NORMALS: EOMs intact bilaterally and conjunctivae normal CONJUNCTIVA: Yes conjunctivae normal Neck/C-Spine: COMMON NORMALS: full ROM and supple Resp: COMMON NORMALS: normal respiratory effort and clear to auscultation bilaterally AUSCULTATION: clear to auscultation bilaterally Cardio: COMMON NORMALS: regular rate RATE: regular rate GI: COMMON NORMALS: Soft to palpation and non-tender PALPATION: Yes Soft to palpation OTHER: +mild diffuse abd TTP. NO guarding rebound, guarding, rigidity. No CVA tenderness to percussion. Neg Galloway/Neg McBurney's point tenderness, no suprabupic tenderness to palpation. Extremity: COMMON NORMALS: full ROM Neuro: SENSORIUM/ORIENTATION: Yes alert MOTOR EXAM: No Abnormal motor strength present and Other motor observations present (no focal motor deficits) Psych: COMMON NORMALS: speech normal SPEECH: Yes normal speech MOOD & AFFECT: Yes euthymic mood Course Vital Signs: Vital signs: Vital Signs Temperature 98.2 F 03/15/22 11:12 Pulse Rate 87 03/15/22 12:45 Respiratory Rate 16 03/15/22 11:23 Blood Pressure 115/68 03/15/22 11:12 Pulse Oximetry 95 03/15/22 11:23 Oxygen Delivery Me thod 03/15/22 11:23 Oxygen Flow Rate 2 03/15/22 11:23 [facility] - General Adult Medical Decision Making Patient is a 71-year-old female with a history of paroxysmal atrial fibrillation on Xarelto who presents emergency room with concerns of gross hematuria and diffuse abdominal pain for the last 2 days. On exam, patient has mild diffuse tenderness palpation. He has no guarding or rebound tenderness. White count 12.7 today. Rest of lab within normal limit. UA is consistent with possible kidney stone versus hematuria. CT abdomen pelvis showed left-sided mild hydroureter. Creatinine 1.4. Patient received IVF. Patient received cefdinir in the ER. UA is questionable for UTI. Paulinatent only has one kidney. Case discussed with Dr Ojeda who recommended observation. Disposition: observation Lab Data : 03/15/22 04:11 03/15/22 04:11 Radiology Impressions Abdomen/Pelvis CT 03/13/22 17:27 IMPRESSION: 1. Small stone in the mid left ureter. 2. Congenitally absent right kidney KUB X-Ray 03/13/22 20:08 IMPRESSION: No acute finding. C-Arm Fluoroscopy 03/14/22 11:58 IMPRESSION: 1. Persistent filling defect in the mid left ureter apparently representing a known ureteral stone. Chest X-Ray 03/14/22 14:12 IMPRESSION: 1. Probable infiltrate in the left lower lobe that may represent developing pneumonia. 2. Cardiac enlargement unchanged. Laboratory Results WBC 12.7 10^3/uL (4.0-10.0) H 03/13/22 14:17 RBC 4.51 10^6/uL (4.1-5.3) 03/13/22 14:17 Hgb 14.0 g/dL (11.5-15.3) 03/13/22 14:17 Hct 44.4 % (37.0-47.0) 03/13/22 14:17 MCV 98.4 fl (81-99) 03/13/22 14:17 MCH 31.0 pg (28.0-34.0) 03/13/22 14:17 MCHC 31.5 g/dL (30.0-36.0) 03/13/22 14:17 RDW 14.4 % (12.1-15.1) 03/13/22 14:17 Plt Count 336 10^3/cmm (130-400) 03/13/22 14:17 MPV 9.5 fL (7.4-10.4) 03/13/22 14:17 Neut % (Auto) 88.7 % 03/13/22 14:17 Lymph % (Auto) 7.8 % 03/13/22 14:17 Lander % (Auto) 2.7 % 03/13/22 14:17 Eos % (Auto) 0.1 % 03/13/22 14:17 Baso % (Auto) 0.2 % 03/13/22 14:17 Neut # (Auto) 11.29 10^3/uL (1.8-7.7) H 03/13/22 14:17 Lymph # (Auto) 1.0 10^3/uL (0.8-4.8) 03/13/22 14:17 Lander # (Auto) 0.4 10^3/uL (0.2-0.9) 03/13/22 14:17 Eos # (Auto) 0.0 10^3/uL (0.0-0.8) 03/13/22 14:17 Baso # (Auto) 0.0 10^3/uL (0.0-0.1) 03/13/22 14:17 Nucleated RBC % (auto) 0 % 03/13/22 14:17 Nucleated RBCs # 0.0 /100WBC 03/13/22 14:17 Sodium 138 mmol/L (136-145) 03/13/22 14:17 Potassium 5.5 mmol/L (3.5-5.1) H 03/13/22 14:17 Chloride 97 mmol/L (98-107) L 03/13/22 14:17 Carbon Dioxide 30 mmol/L (22-29) H 03/13/22 14:17 Anion Gap 16.5 (5-19) 03/13/22 14:17 BUN 19 mg/dL (8-23) 03/13/22 14:17 Creatinine 1.4 mg/dL (0.5-0.9) H 03/13/22 14:17 GFR Calculation Not Reportable 03/13/22 14:17 Glucose 194 mg/dL (65-115) H 03/13/22 14:17 Calculated Osmolality 294 mOsm/kg (285-295) 03/13/22 14:17 Calcium 10.0 mg/dL (8.5-10.5) 03/13/22 14:17 Total Bilirubin 0.4 mg/dL (0.15-1.2) 03/13/22 14:17 AST 14 U/L (0-32) 03/13/22 14:17 ALT 7 U/L (0-33) 03/13/22 14:17 Alkaline Phosphatase 86 U/L (35-105) 03/13/22 14:17 Total Protein 6.6 g/dL (6.6-8.7) 03/13/22 14:17 Albumin 3.8 g/dL (3.5-5.2) 03/13/22 14:17 Globulin 2.8 g/dL (1.3-4.6) 03/13/22 14:17 Lipase 34 U/L (13-60) 03/13/22 14:17 Urine Color Red (Yellow) 03/13/22 13:46 Urine Appearance Bloody (CLEAR) A 03/13/22 13:46 Urine pH 6 (5-7) 03/13/22 13:46 Ur Specific [place] 1.015 (1.005-1.030) 03/13/22 13:46 Urine Protein 2+ (Negative) H 03/13/22 13:46 Urine Glucose (UA) Norm (Normal) 03/13/22 13:46 Urine Ketones Negative (Negative) 03/13/22 13:46 Urine Blood 3+ (Negative) H 03/13/22 13:46 Urine Nitrate Negative (Negative) 03/13/22 13:46 Urine Bilirubin Neg (Negative) 03/13/22 13:46 Urine Urobilinogen Norm mg/dL (Negative) 03/13/22 13:46 Ur Leukocyte Esterase Negative (Negative) 03/13/22 13:46 Urine RBC Too numerous to cnt /hpf (0-2) H 03/13/22 13:46 Urine WBC 5-10 /hpf (0-5) H 03/13/22 13:46 Ur Squamous Epith Cells None /hpf (0-5) 03/13/22 13:46 Amorphous Sediment Not Reportable 03/13/22 13:46 Urine Bacteria 1+ /hpf (NONE) H 03/13/22 13:46 Imaging Data Other Imaging: Radiologist's impression: [place] [address] CT Scan Report Signed Patient: Rebeca Álvarez Unit #: [id number] : 1950 Age/Sex: 71 / F ADM Date: 03/13/22 Loc: ER Room/Bed: Attending Dr: Ordering Provider/Ordering MD: Socorro Alford MD Date of Service: 03/13/22 Procedure(s): CT abdomen pelvis w con* [id number] Accession Number(s): [id number] Report Number: [id number] PROCEDURE INFORMATION: Exam: CT Abdomen And Pelvis With Contrast Exam date and time: 03/13/2022 5:53 PM Age: 71 years old Clinical indication: Abdominal pain; Additional info: Pelvic pain, down low, HX of diverticulitis, . congenital 1 kidney TECHNIQUE: Imaging protocol: Computed tomography of the abdomen and pelvis with contrast. Radiation optimization: All CT scans at this facility use at least one of these dose optimization techniques: automated exposure control; mA and/or kV adjustment per patient size (includes targeted exams where dose is matched to clinical indication); or iterative reconstruction. Contrast material: OMNIPAQUE 350; Contrast volume: 65 ml; Contrast route: INTRAVENOUS (IV);? COMPARISON: CT abdomen pelvis wo con [id number] 01/24/2022 4:50 PM RADIATION DOSE METRICS: Total DLP (mGy-cm): 854.66 FINDINGS: Liver: There is no focal abnormality within the liver. There is air in the biliary tree of the left lobe of the liver not significantly changed. Gallbladder and bile ducts: There has been a cholecystectomy. Pancreas: The pancreas is normal. Spleen: The spleen is normal. Adrenal glands: The adrenal glands are normal. Kidneys and ureters:? Right kidney is severely hypoplastic. This is consistent with a history of congenital absence. The left kidney is normal. There is mild fullness of the left ureter. 3 mm sized stone is present in the mid left ureter. This measures around 400 Hounsfield units. This is not seen on the dispensing operator image. Stomach and bowel: There is no evidence of colitis/diverticulitis. Appendix: A normal appendix is identified. Intraperitoneal space: Unremarkable. No free air. No significant fluid collection. Vasculature: The aorta demonstrates moderate atherosclerotic calcification. There is no evidence of an abdominal aortic aneurysm. Lymph nodes: There is no evidence of lymphadenopathy. Urinary bladder: Unremarkable as visualized. Reproductive: There has been a hysterectomy. Bones/joints: Unremarkable. No acute fracture. Soft tissues: Unremarkable. CT/CT abdomen pelvis w con* [id number] IMPRESSION: 1. Small stone in the mid left ureter. 2. Congenitally absent right kidney ? Dictated By: Donte Moore Signed By: Donte Moore Signed Date/Time: 03/13/22 1844 DD/ 1753 Discharge Plan Discharge Patient Disposition: Home Clinical Impression: Hematuria, Abdominal pain, Renal colic Condition: Stable Discharge Orders: Discharge Order (Routine); Ordered 03/15/22 Ordered By: Ezra Chaudhari Discharge Diet: Advance as tolerated Discharge Activity: Increase activity as tolerated and Oxygen as instructed Coding Level of Care Code ED Anatomic Pathology Assistant for Chg Fwd Exam Comprehensive
[2022-03-13] MEDS: famotidine 20 mg/2 mL INJ IVP (18:12)
[2022-03-13] MEDS: lactated ringers 500 ML 999 ML IV (18:12)
--- NOTE | 2022-03-13 18:20 | PC.NURSE ---
Per jose Gomez for patient to take her home hydrocodone 10/.
--- NOTE | 2022-03-13 20:08 | XRR_ITS ---
PROCEDURE INFORMATION: Exam: XR Abdomen Exam date and time: 03/13/2022 8:27 PM Age: 71 years old Clinical indication: Condition or disease; Kidney or ureter condition; Calculus (stone) in kidney; Additional info: Kidney stone TECHNIQUE: Imaging protocol: Radiologic exam of the abdomen. Views: Frontal supine view of the abdomen. 1 View. COMPARISON: CT abdomen pelvis w con* [id number] 03/13/2022 5:53 PM FINDINGS: Heart/Mediastinum: There is mild cardiomegaly. Gastrointestinal tract: Bowel gas pattern is unremarkable. Organs: No urinary tract calculi are demonstrated. There is some contrast material within the left collecting system and in the urinary bladder from the recent CT scan. Bones/joints: There are degenerative changes in the lumbar spine with mild scoliosis concave to the right. XR/XR KUB portable [id number] IMPRESSION: No acute finding.
--- NOTE | 2022-03-13 20:40 | P.HP_ITS ---
Providers/Chief Complaint Primary Care Provider: Ava Fernandez DO Chief Complaint: possible AFIB History of Present Illness Rebeca Álvarez is a 71 year old female with past medical history of hypertension COPD On 3LS? home oxygen atrial fibrillation on Xarelto, and dofetilide , Cardizem, metoprolol, heart failure (?mildly dilated R.V with slightly diminished ejection fraction )?, was brought in with chief complaint of Generalized abdominal pain, going on for the last 2 days, accompanied with nausea, and also started having hematuria which has worsened since this morning. She was also complaining of left-sided back pain. Upon arrival in the ER she was worked up for above-mentioned complaint: Pertinent imaging studies: CT abdomen and pelvis w con: ?Small stone in the mid left ureter.Congenitally absent right kidney. XR KUB portable:No acute finding. EKG: SINUS BRADYCARDIA WITH FIRST DEGREE AV BLOCK Pertinent labs: WBC : 12.7 , H&H: 14/44 , PLT : 336, serum sodium 138, K: 5.5 , BUN/SCR : 19/1.4 , AST ALT alk phos normal total bilirubin normal. Urinalysis gross hematuria Review of Systems General: Reports: 10 or more systems reviewed and unremarkable except in HPI and below Const: Denies: fever(s), chills, body aches, change in appetite or diaphoresis Card: Denies: palpitations, edema, swelling of feet/ankles, dyspnea on exertion, orthopnea or leg pain with exertion Resp: Denies: dyspnea, productive cough, wheezing or pain on inspiration GI: Reports: abdominal pain and nausea; Denies: vomiting, diarrhea or constipation : Denies: flank pain Musc: Denies: back pain, extremity pain or extremity swelling Neuro: Denies: headache(s), difficulty walking or confusion Medications/Allergies Home Medications Medication Instructions Recorded Confirmed Last Taken Type alprazolam 1 mg tablet 0.5 mg PO BID 14 days #14 tabs 01/25/22 03/13/22 03/13/22 Rx lactulose 10 gram/15 mL oral 10 g (15 mL) PO DAILY PRN 01/25/22 03/13/22 Unknown Rx solution constipation #237 mL montelukast 10 mg tablet 1 mg PO BEDTIME #30 tabs 08/10/22 09/26/22 09/25/22 Rx pantoprazole 40 mg tablet,delayed 40 mg PO DAILY #14 tabs 01/25/22 03/13/22 03/13/22 Rx release rosuvastatin 20 mg tablet 20 mg PO DAILY 30 days #30 tabs 01/25/22 03/13/22 03/12/22 Rx sennosides 8.6 mg-docusate sodium 1 tab PO BID #60 tabs 01/25/22 03/13/22 03/13/22 Rx 50 mg tablet (Stool Softener-Laxative) zolpidem 10 mg tablet 10 mg PO BEDTIME #30 tabs 01/25/22 03/13/22 03/12/22 Rx albuterol sulfate 2.5 mg/3 mL 2.5 mg inhalation Q4H PRN 01/29/22 03/13/22 Unknown History (0.083 %) solution for nebulization Shortness Of Breath albuterol sulfate 90 mcg/actuation 1 puff inhalation QID PRN 01/29/22 03/13/22 Unknown History aerosol inhaler Shortness Of Breath diltiazem HCl 240 mg 240 mg PO DAILY #90 tabs 01/31/22 03/13/22 03/13/22 Rx tablet,extended release 24 hr (Cardizem LA) furosemide 40 mg tablet (Lasix) 40 mg PO BID 30 days #60 tabs 02/03/22 03/13/22 03/13/22 Rx hydrocodone 10 mg-acetaminophen 1 tab PO Q6H PRN Pain 30 days #120 02/03/22 03/13/22 Unknown Rx 325 mg tablet tabs rivaroxaban 15 mg tablet (Xarelto) 15 mg PO DAILY #30 tabs 02/03/22 03/13/22 03/13/22 Rx diltiazem HCl 30 mg tablet 30 mg PO Q8H PRN tachycardia #30 02/19/22 03/13/22 Unknown Rx (Cardizem) tabs magnesium L-lactate 84 mg 84 mg PO BID #180 tabs 03/09/22 03/13/22 03/13/22 Rx tablet,extended release (Magtab) metoprolol tartrate 25 mg tablet 12.5 mg PO BID #90 tabs 03/09/22 03/13/22 03/13/22 Rx dofetilide 125 mcg capsule 250 mcg PO BID 30 days #120 caps 03/13/22 Unknown Rx potassium chloride 20 mEq 40 meq PO DAILY 03/13/22 03/13/22 03/13/22 History tablet,extended release prednisone 10 mg tablet 10 mg PO DAILY 03/13/22 03/13/22 03/13/22 History promethazine 6.25 mg/5 mL oral 6.25 mg PO QID PRN Cough 03/13/22 03/13/22 Unknown History syrup umeclidinium 62.5 mcg-vilanterol 1 inh inhalation BID 03/13/22 03/13/22 03/13/22 History 25 mcg/actuation powdr for inhalation (Anoro Ellipta) Allergies Allergy/AdvReac Type Severity Reaction Status Date / Time morphine Allergy Unknown Verified 02/23/22 14:53 Penicillins Allergy Unknown Verified 02/23/22 14:53 PFSH Acute PFSH: Medical History Abdominal pain Acute diastolic heart failure Acute kidney injury superimposed on CKD HERBER (acute kidney injury) Atrial fibrillation Atrial fibrillation with rapid ventricular response Atrial fibrillation with RVR Chronic anticoagulation Chronic kidney disease COPD (chronic obstructive pulmonary disease) Dehydration Fatigue Generalized weakness History of syncope HTN (hypertension) with goal to be determined Hypokalemia Right heart failure T2DM (type 2 diabetes mellitus) Volume overload Surgical History Hx of cholecystectomy Social History Smoking and tobacco status: current every day smoker Alcohol intake: never Marital status: / Vitals/I&O/Wt Last Vital Signs Temp 98.9 F 03/13/22 13:24 Pulse 60 03/13/22 18:21 Resp 18 03/13/22 18:21 BP 122/68 03/13/22 18:21 Pulse Ox 96 03/13/22 18:21 O2 Del Method 03/13/22 13:24 O2 Flow Rate 3 03/13/22 18:21 03/13/22 03/13/22 03/13/22 06:59 14:59 22:59 Intake Total 500 / 500 Balance 500 / 500 Weight last 48 hrs Weight 97.522 kg Physical Exam Resp: COMMON NORMALS: normal respiratory effort, No retractions, No use of accessory muscles and clear to auscultation bilaterally EFFORT & INSPECTION: Yes symmetric chest movement AUSCULTATION: clear to auscultation bilaterally Cardio: COMMON NORMALS: regular rate, regular rhythm, S1 normal heart sound present, S2 normal heart sound present, No gallops present (Cardio), No murmurs present (Cardio), No rub (Cardio) and Peripheral pulses 2+ throughout RATE: regular rate RHYTHM: regular rhythm HEART SOUNDS: S1 normal heart sound present and S2 normal heart sound present PERIPHERAL PULSES: Peripheral pulses 2+ throughout GI: COMMON NORMALS: Normal to inspection, nondistended, normoactive bowel sounds present, Soft to palpation, non-tender, No hepatosplenomegaly present and no masses AUSCULTATION: Yes normoactive bowel sounds PALPATION: Yes Soft to palpation and Yes No hepatosplenomegaly present RECTAL EXAM: deferred Extremity: COMMON NORMALS: no clubbing, cyanosis or edema and no pedal edema Neuro: COMMON NORMALS: patient oriented x3 Data : 03/14/22 04:25 03/13/22 14:17 A&P Assessment and plan (1) Hematuria: (2) Abdominal pain: (3) Renal colic: (4) Chronic anticoagulation: (5) Atrial fibrillation: (6) Diastolic heart failure: (7) CKD (chronic kidney disease): Plan 71 year old female with past medical history of hypertension COPD On 3LS? home oxygen atrial fibrillation on Xarelto, and dofetilide , Cardizem, metoprolol, heart failure (?mildly dilated R.V with slightly diminished ejection fraction )?, was brought in with chief complaint of Generalized abdominal pain, going on for the last 2 days, accompanied with nausea, and also started having hematuria which has worsened since this morning. She was also complaining of left-sided back pain. Assessment: Renal colic hypertension COPD atrial fibrillation Plan: Pain management Continue gentle IV hydration with normal saline at 75 cc an hour Hold Xarelto for now Continue Tikosyn, Cardizem , dose has been decreased to 180, from 240, as patient currently has well-controlled heart rate, will hold metoprolol for now. [facility]: Full code. Attestations Medical Necessity Statement*: Patient is to be in hospital for management of renal colic hematuria. Time Spent in Patient Care: Greater than 35 minutes (>than 50% of time spent in counselling and/or direct pt care on unit) . Coding Level of Care Code Acute Physical Optics Teacher for Chg Fwd Exam Detailed Diagnoses Hematuria R31.9 Abdominal pain R10.9 Renal colic N23 Chronic anticoagulation Z79.01 Atrial fibrillation I48.91 Diastolic heart failure I50.30 CKD (chronic kidney disease) N18.9
[2022-03-13] MEDS: fentaNYL 50 mcg/mL INJ 2mL IVP (20:50)
[2022-03-13] MEDS: sodium chloride 0.9% 1,000 ML 75 ML IV (20:50)
[2022-03-13] MEDS: cefdinir 300 MG CAPSULE PO (20:51)
[2022-03-13] MEDS: oxyCODONE-APAP 5-325 mg Tablet 1 TAB PO (23:10)
[2022-03-14] VITALS (26 sets, daily range): BP systolic 95–132; BP diastolic 55–72; PULSE 61–96; RESP 16–20; TEMP 36.2–36.9; O2SAT 92–98
--- NOTE | 2022-03-14 | SCC_ITS ---
Procedure done: 1. Cystoscopy, LEFT: Retrograde 2. LEFT: Ureteroscopy, stone extraction, stent 37.1 seconds of fluoroscopic guidance, for a cumulative dose of 11.98 mGy, was provided to Dr. Ojeda by the radiology department. C-arm images of the abdomen were saved for the patient's permanent record. [facility]
[2022-03-14 05:16] LABS: Basophils % 0.3 %; Eosinophils # 0.1 10^3/uL (0.0-0.8); Eosinophils % 1.1 %; Hematocrit 38.2 % (37.0-47.0); Hemoglobin 11.6 g/dL (11.5-15.3); Lymphocytes # 2.1 10^3/uL (0.8-4.8); Lymphocytes % 23.3 %; Mean Corpuscular HGB Conc 30.4 g/dL (30.0-36.0); Mean Corpuscular Hemoglobin 30.7 pg (28.0-34.0); Mean Corpuscular Volume 101.1 fl (81-99); Monocytes # 0.9 10^3/uL (0.2-0.9); Neutrophils # 5.94 10^3/uL (1.8-7.7); Nucleated Red Blood Cells % 0 %; Platelet Count 272 10^3/cmm (130-400); Red Blood Count 3.78 10^6/uL (4.1-5.3); Red Cell Distribution Width 14.6 % (12.1-15.1); White Blood Count 9.1 10^3/uL (4.0-10.0)
[2022-03-14 05:31] LABS: INR 0.99 (0.8-1.2)
[2022-03-14 05:43] LABS: Blood Urea Nitrogen 16 mg/dL (8-23); Calcium 8.9 mg/dL (8.5-10.5); Carbon Dioxide 26 mmol/L (22-29); Chloride 104 mmol/L (98-107); Glucose 133 mg/dL (65-115); Osmolality Calculated 291 mOsm/kg (285-295); Sodium 139 mmol/L (136-145)
[2022-03-14 05:48] LABS: Anion Gap 12.9 (5-19); Potassium 3.9 mmol/L (3.5-5.1)
[2022-03-14 05:49] LABS: Procalcitonin 0.04 ng/mL (0-0.5)
--- NOTE | 2022-03-14 07:44 | P.CONIM_ITS ---
Providers/Reason For Consult Consulting Physician/Specialty*: Urology/Ojeda Reason for Consult*: Solitary kidney Requesting Physician: Dr. Hale Attending Physician: Naeem Hale MD Primary Care Provider: Ava Fernandez DO History of Present Illness History of Present Illness Rebeca Álvarez is a 71 year old female who I evaluated for the first time today at the request of the emergency room and Dr. Hale regarding left 3 mm mid ureteral stone with obstruction of solitary kidney. Was identified on CT scan done yesterday for hematuria and renal colicky type symptoms. No prior stones. No evidence of infection. No fever or chills. No sepsis. Pain was quite severe at times. It began 5 days ago. She did have some pain medicine at home which kept her out of the emergency department. Initial creatinine was 1.4. This morning is 1.3. She is not anuric. Reviewed with her these findings and the more urgent nature given if she does have a solitary kidney. She has effectively failed a reasonable conservative trial based on the small size of the stone and time since onset of symptoms and without success. She had a CT scan done on 01/24/2022 that showed the stone now located in the left mid ureter was in the left lower pole at that time. No evidence of obstruction. No additional stones were seen. Reviewed further conservative therapy versus intervention. Offered cystoscopy, left retrograde, ureteroscopy, laser, stent as a reasonable treatment at this point based on the solitary kidney, failure of conservative therapy, and mildly elevated creatinine. After detailed discussion including benefits, risks, potential complications, potential staging of approach if the stone could not be safely accessed with endoscopy leading to a stent placement and repeat procedure later versus inability to access even with a guidewire the upper urinary tracts which would necessitate interventional radiology consultation elsewhere for antegrade approach. Perioperative limitations expectations reviewed. Informed consent was obtained. Other comorbidities include COPD, intermittent atrial fibrillation, chronic anticoagulation, hypertension, history of hypokalemia although higher normal now, history of acute diastolic heart failure, type 2 diabetes mellitus Review of Systems Const: Denies: fever(s) or chills Eyes: Denies: eye discharge ENMT: Denies: hoarseness Card: Reports: palpitations (With intermittent atrial fibrillation with RVR); Denies: chest pain Resp: Denies: dyspnea or productive cough GI: Reports: abdominal pain and nausea; Denies: vomiting or hematochezia : Reports: flank pain; Denies: dysuria Musc: Reports: back pain (CVA ) Skin/Breast: Denies: jaundice Neuro: Denies: confusion, Slurred speech present or difficulty communicating thoughts Psych: Denies: memory loss Endo: Denies: flushing Mahesh/Lymph: Reports: easy bruising and easy bleeding All/Imm: Denies: acute wheezing Medications/Allergies Home Medications Medication Instructions Recorded Confirmed Last Taken Type alprazolam 1 mg tablet 0.5 mg PO BID 14 days #14 tabs 01/25/22 03/13/22 03/13/22 Rx lactulose 10 gram/15 mL oral 10 g (15 mL) PO DAILY PRN 01/25/22 03/13/22 Unknown Rx solution constipation #237 mL montelukast 10 mg tablet 1 mg PO BEDTIME #30 tabs 01/25/22 03/13/22 03/12/22 Rx pantoprazole 40 mg tablet,delayed 40 mg PO DAILY #14 tabs 01/25/22 03/13/22 03/13/22 Rx release rosuvastatin 20 mg tablet 20 mg PO DAILY 30 days #30 tabs 01/25/22 03/13/22 03/12/22 Rx sennosides 8.6 mg-docusate sodium 1 tab PO BID #60 tabs 01/25/22 03/13/22 03/13/22 Rx 50 mg tablet (Stool Softener-Laxative) zolpidem 10 mg tablet 10 mg PO BEDTIME #30 tabs 01/25/22 03/13/22 03/12/22 Rx albuterol sulfate 2.5 mg/3 mL 2.5 mg inhalation Q4H PRN 01/29/22 03/13/22 Unknown History (0.083 %) solution for nebulization Shortness Of Breath albuterol sulfate 90 mcg/actuation 1 puff inhalation QID PRN 01/29/22 03/13/22 Unknown History aerosol inhaler Shortness Of Breath diltiazem HCl 240 mg 240 mg PO DAILY #90 tabs 01/31/22 03/13/22 03/13/22 Rx tablet,extended release 24 hr (Cardizem LA) furosemide 40 mg tablet (Lasix) 40 mg PO BID 30 days #60 tabs 02/03/22 03/13/22 03/13/22 Rx hydrocodone 10 mg-acetaminophen 1 tab PO Q6H PRN Pain 30 days #120 02/03/22 03/13/22 Unknown Rx 325 mg tablet tabs rivaroxaban 15 mg tablet (Xarelto) 15 mg PO DAILY #30 tabs 02/03/22 03/13/22 03/13/22 Rx diltiazem HCl 30 mg tablet 30 mg PO Q8H PRN tachycardia #30 02/19/22 03/13/22 Unknown Rx (Cardizem) tabs magnesium L-lactate 84 mg 84 mg PO BID #180 tabs 03/09/22 03/13/22 03/13/22 Rx tablet,extended release (Magtab) metoprolol tartrate 25 mg tablet 12.5 mg PO BID #90 tabs 03/09/22 03/13/22 03/13/22 Rx dofetilide 125 mcg capsule 250 mcg PO BID 30 days #120 caps 03/13/22 Unknown Rx potassium chloride 20 mEq 40 meq PO DAILY 03/13/22 03/13/22 03/13/22 History tablet,extended release prednisone 10 mg tablet 10 mg PO DAILY 03/13/22 03/13/22 03/13/22 History promethazine 6.25 mg/5 mL oral 6.25 mg PO QID PRN Cough 03/13/22 03/13/22 Unknown History syrup umeclidinium 62.5 mcg-vilanterol 1 inh inhalation BID 03/13/22 03/13/22 03/13/22 History 25 mcg/actuation powdr for inhalation (Anoro Ellipta) Allergies Allergy/AdvReac Type Severity Reaction Status Date / Time morphine Allergy Unknown Verified 02/23/22 14:53 Penicillins Allergy Unknown Verified 02/23/22 14:53 Current Medications Generic Name Dose Route Start Last Admin Trade Name Freq PRN Reason Stop Dose Admin Sodium Chloride 1,000 mls @ 75 mls/hr 03/13/22 20:30 03/13/22 20:50 Sodium Chloride 0.9% IV 75 mls/hr .[id number] JONATAN Administration Oxycodone/Acetaminophen 1 tab 03/13/22 20:28 03/13/22 23:10 Oxycodone-Apap 5-325 Mg Tablet PO 1 tab Q4H PRN Administration SEVERE PAIN PFSH Acute PFSH: Medical History Abdominal pain Acute diastolic heart failure Acute kidney injury superimposed on CKD HERBER (acute kidney injury) Atrial fibrillation Atrial fibrillation with rapid ventricular response Atrial fibrillation with RVR Chronic anticoagulation Chronic kidney disease COPD (chronic obstructive pulmonary disease) Dehydration Fatigue Generalized weakness History of syncope HTN (hypertension) with goal to be determined Hypokalemia Right heart failure T2DM (type 2 diabetes mellitus) Volume overload Surgical History Hx of cholecystectomy Social History Smoking and tobacco status: current every day smoker Alcohol intake: never Marital status: / Vitals/I&O/Wt Last Vital Signs Temp 98.0 F 03/14/22 04:00 Pulse 61 03/14/22 04:00 Resp 16 03/14/22 04:00 BP 95/55 03/14/22 04:00 Pulse Ox 98 03/14/22 04:00 O2 Del Method 03/14/22 04:00 O2 Flow Rate 3 03/14/22 04:00 03/13/22 03/14/22 03/14/22 22:59 06:59 14:59 Intake Total 500 / 500 Balance 500 / 500 Weight last 48 hrs Weight 215 lb Physical Exam Const: COMMON NORMALS: no acute distress, alert and well nourished GENERAL APPEARANCE: well kempt and well developed ORIENTATION/CONSCIOUSNESS: not confused HENMT: COMMON NORMALS: normocephalic HEAD & SCALP: normal to inspection and normocephalic Eye: COMMON NORMALS: conjunctivae normal and no scleral icterus CONJUNCTIVA: Yes conjunctivae normal Neck/C-Spine: GENERAL: Yes normal visual inspection Resp: COMMON NORMALS: normal respiratory effort EFFORT & INSPECTION: Yes able to speak in complete sentences, No labored and No Actively coughing Cardio: OTHER: Regular rate and rhythm GI: OTHER: Soft. Some tenderness in her left lower quadrant. No palpable mass. : COMMON NORMALS: Yes no CVA tenderness BLADDER/KIDNEY EXAM: Yes no CVA tenderness OTHER: Normal external female genitalia. Atrophic changes noted. No vaginal discharge. No palpable urethral abnormality. No significant pelvic floor pro lapse. Back/Pelvis: COMMON NORMALS: no CVA tenderness Extremity: NARRATIVE EXTREMITY EXAM: Good range of motion. Neuro: COMMON NORMALS: no focal motor deficits SENSORIUM/ORIENTATION: Yes alert Psych: COMMON NORMALS: mental status grossly normal APPEARANCE: Yes grossly normal and Yes well kempt ATTITUDE: Yes calm and Yes engaged Skin: COMMON NORMALS: no rashes or lesions noted and no jaundice GENERAL SKIN EXAM: no rashes or lesions noted Data : 03/14/22 04:25 03/14/22 04:25 Other data: I personally reviewed her labs, CT, KUB this morning. A&P Assessment and plan (1) Left ureteral calculus: 3 mm mid ureter location with mild obstructive changes and solitary kidney. (2) Solitary kidney, congenital: Kidney looks fine structurally and historically has been functionally adequate. (3) Hematuria: Likely secondary to stone. On chronic anticoagulation. (4) Renal colic: Secondary to mid ureteral calculus (5) CKD (chronic kidney disease): Plan 1. We elected to proceed to the operating room today for stone extraction laser lithotripsy etc. Consult Attestations Medical Necessity Statement: Solitary kidney with obstructing stone. Coding Level of Care Code Acute Computational Physicist for g Fwd Exam Comprehensive Diagnoses Left ureteral calculus N20.1 Solitary kidney, congenital Q60.0 Hematuria R31.9 Renal colic N23 CKD (chronic kidney disease) N18.9
[2022-03-14] MEDS: dilTIAZem 30 mg Tablet PO ×2 (09:56→20:28)
[2022-03-14] MEDS: atorvastatin 40 mg Tablet 80 MG PO (09:56)
[2022-03-14] MEDS: magnesium lactate 84 mg Tablet PO (09:56)
[2022-03-14] MEDS: sennosides-docusate Tablet 1 TAB PO ×2 (09:56→17:33)
[2022-03-14] MEDS: pantoprazole DR 40 mg Tablet PO (09:56)
[2022-03-14] MEDS: ALPRAZolam 0.5 mg Tablet PO ×2 (09:56→17:33)
[2022-03-14] MEDS: predniSONE 10 mg Tablet PO (09:56)
--- NOTE | 2022-03-14 10:45 | ANES.PREANE2 ---
Pre-Anesthetic Assessment Height/Weight: Height 1.68 m Weight 97.522 kg Temp Pulse Resp BP Pulse Ox O2 Del Method O2 Flow Rate 97.9 F 63 18 121/59 95 3 03/14/22 10:19 03/14/22 10:19 03/14/22 10:19 03/14/22 10:19 03/14/22 10:19 03/14/22 10:19 03/14/22 10:19 Operation Date: 03/14/22 11:30 Proposed Procedures p Cystoscopy(Not Applicable) - Jacques Ojeda MD s Retrograde Pyelogram(Left) - MD rebecca Peña Ureteroscopy(Left) - MD rebecca Peña Ureteral Stent Placement(Left) - Jacques Ojeda MD s Laser Lithotripsy(Left) - Jacques Ojeda MD Familial anesthetic complications: None Was Beta Jake taken within 24 hours: Yes Was Clonidine taken within 24 hours: N/A Last intake: > 8 hrs Social Tobacco and No alcohol Exam alert, oriented x 3, clear to auscultation bilaterally and regular rate & rhythm Airway Mallampati: Class III Dentition: caps Pulmonary Chronic Obstructive Pulmonary Disease (3 L NC at home) CV/HEM Atrial Fibrillation Echo 01/06 -EF 62%, mild RV dilation Chronic Renal Insufficiency Renal agenesis Metabolic Diabetes Mellitus Anesthetic Plan ASA status: 4 Anesthesia: General Risk of > 500 ml blood loss (7ml/kg in children): No Medications/Allergies Home Medications Medication Instructions Recorded Confirmed Last Taken Type alprazolam 1 mg tablet 0.5 mg PO BID 14 days #14 tabs 01/25/22 03/13/22 03/13/22 Rx lactulose 10 gram/15 mL oral 10 g (15 mL) PO DAILY PRN 01/25/22 03/13/22 Unknown Rx solution constipation #237 mL montelukast 10 mg tablet 1 mg PO BEDTIME #30 tabs 01/25/22 03/13/22 03/12/22 Rx pantoprazole 40 mg tablet,delayed 40 mg PO DAILY #14 tabs 01/25/22 03/13/22 03/13/22 Rx release rosuvastatin 20 mg tablet 20 mg PO DAILY 30 days #30 tabs 01/25/22 03/13/22 03/12/22 Rx sennosides 8.6 mg-docusate sodium 1 tab PO BID #60 tabs 01/25/22 03/13/22 03/13/22 Rx 50 mg tablet (Stool Softener-Laxative) zolpidem 10 mg tablet 10 mg PO BEDTIME #30 tabs 01/25/22 03/13/22 03/12/22 Rx albuterol sulfate 2.5 mg/3 mL 2.5 mg inhalation Q4H PRN 01/29/22 03/13/22 Unknown History (0.083 %) solution for nebulization Shortness Of Breath albuterol sulfate 90 mcg/actuation 1 puff inhalation QID PRN 01/29/22 03/13/22 Unknown History aerosol inhaler Shortness Of Breath diltiazem HCl 240 mg 240 mg PO DAILY #90 tabs 01/31/22 03/13/22 03/13/22 Rx tablet,extended release 24 hr (Cardizem LA) furosemide 40 mg tablet (Lasix) 40 mg PO BID 30 days #60 tabs 02/03/22 03/13/22 03/13/22 Rx hydrocodone 10 mg-acetaminophen 1 tab PO Q6H PRN Pain 30 days #120 02/03/22 03/13/22 Unknown Rx 325 mg tablet tabs rivaroxaban 15 mg tablet (Xarelto) 15 mg PO DAILY #30 tabs 02/03/22 03/13/22 03/13/22 Rx diltiazem HCl 30 mg tablet 30 mg PO Q8H PRN tachycardia #30 02/19/22 03/13/22 Unknown Rx (Cardizem) tabs magnesium L-lactate 84 mg 84 mg PO BID #180 tabs 03/09/22 03/13/22 03/13/22 Rx tablet,extended release (Magtab) metoprolol tartrate 25 mg tablet 12.5 mg PO BID #90 tabs 03/09/22 03/13/22 03/13/22 Rx dofetilide 125 mcg capsule 250 mcg PO BID 30 days #120 caps 03/13/22 Unknown Rx potassium chloride 20 mEq 40 meq PO DAILY 03/13/22 03/13/22 03/13/22 History tablet,extended release prednisone 10 mg tablet 10 mg PO DAILY 03/13/22 03/13/22 03/13/22 History promethazine 6.25 mg/5 mL oral 6.25 mg PO QID PRN Cough 03/13/22 03/13/22 Unknown History syrup umeclidinium 62.5 mcg-vilanterol 1 inh inhalation BID 03/13/22 03/13/22 03/13/22 History 25 mcg/actuation powdr for inhalation (Anoro Ellipta) Allergies Allergy/AdvReac Type Severity Reaction Status Date / Time morphine Allergy Unknown Verified 02/23/22 14:53 Penicillins Allergy Unknown Verified 02/23/22 14:53 Current Medications Generic Name Dose Route Start Last Admin Trade Name Freq PRN Reason Stop Dose Admin Alprazolam 0.5 mg 03/14/22 09:00 03/14/22 09:56 Alprazolam 0.5 Mg Tablet PO 0.5 mg BID JONATAN Administration Atorvastatin Calcium 80 mg 03/14/22 09:00 03/14/22 09:56 Atorvastatin 40 Mg Tablet PO 80 mg DAILY JONATAN Administration Diltiazem HCl 30 mg 03/14/22 08:00 03/14/22 09:56 Diltiazem 30 Mg Tablet PO 30 mg Q6H JONATAN Administration Sodium Chloride 1,000 mls @ 75 mls/hr 03/13/22 20:30 03/13/22 20:50 Sodium Chloride 0.9% IV 75 mls/hr .[id number] JONATAN Administration Magnesium Lactate 84 mg 03/14/22 09:00 03/14/22 09:56 Magnesium Lactate 84 Mg Tablet PO 84 mg BID JONATAN Administration Oxycodone/Acetaminophen 1 tab 03/13/22 20:28 03/13/22 23:10 Oxycodone-Apap 5-325 Mg Tablet PO 1 tab Q4H PRN Administration SEVERE PAIN Pantoprazole Sodium 40 mg 03/14/22 09:00 03/14/22 09:[address] 40 Mg Tablet PO 40 mg DAILY JONATAN Administration Prednisone 10 mg 03/14/22 09:00 03/14/22 09:56 Prednisone 10 Mg Tablet PO 10 mg DAILY JONATAN Administration Senna/Docusate Sodium 1 tab 03/14/22 09:00 03/14/22 09:56 Sennosides-Docusate Tablet PO 1 tab BID JONATAN Administration PFSH Anesthesia Medical History Abdominal pain Acute diastolic heart failure Acute kidney injury superimposed on CKD HERBER (acute kidney injury) Atrial fibrillation Atrial fibrillation with rapid ventricular response Atrial fibrillation with RVR Chronic anticoagulation Chronic kidney disease COPD (chronic obstructive pulmonary disease) Dehydration Fatigue Generalized weakness History of syncope HTN (hypertension) with goal to be determined Hypokalemia Right heart failure T2DM (type 2 diabetes mellitus) Volume overload Surgical History Hx of cholecystectomy Social History Smoking and tobacco status: current every day smoker Alcohol intake: never Marital status: / Data Anesthesia : 03/14/22 04:25 03/14/22 04:25 Short CBC 03/13/22 03/14/22 Range/Units 14:17 04:25 WBC 12.7 H 9.1 (4.0-10.0) 10^3/uL Hgb 14.0 11.6 (11.5-15.3) g/dL Hct 44.4 38.2 (37.0-47.0) % MCV 98.4 101.1 H (81-99) fl Plt Count 336 272 (130-400) 10^3/cmm Neut % (Auto) 88.7 65.0 % Neut # (Auto) 11.29 H 5.94 (1.8-7.7) 10^3/uL BMP 03/13/22 03/14/22 14:17 04:25 Sodium 138 139 Potassium 5.5 H 3.9 Chloride 97 L 104 Carbon Dioxide 30 H 26 BUN 19 16 Creatinine 1.4 H 1.3 H Glucose 194 H 133 H Calcium 10.0 8.9 Liver Function 03/13/22 Range/Units 14:17 Total Bilirubin 0.4 (0.15-1.2) mg/dL AST 14 (0-32) U/L ALT 7 (0-33) U/L Alkaline Phosphatase 86 (35-105) U/L Albumin 3.8 (3.5-5.2) g/dL Urine 03/13/22 Range/Units 13:46 Urine Color Red (Yellow) Urine Appearance Bloody A (CLEAR) Urine pH 6 (5-7) Ur Specific [place] 1.015 (1.005-1.030) Urine Protein 2+ H (Negative) Urine Glucose (UA) Norm (Normal) Urine Ketones Negative (Negative) Urine Nitrate Negative (Negative) Urine Bilirubin Neg (Negative) Ur Leukocyte Esterase Negative (Negative) Urine RBC Too numerous to cnt H (0-2) /hpf Urine WBC 5-10 H (0-5) /hpf Coags 03/14/22 04:25 PT 13.40 INR 0.99 Cardiac Studies: Echocardiogram 01/06/22
[2022-03-14] MEDS: sodium chloride 0.9% 1,000 ML 30 ML IV (10:55)
[2022-03-14] MEDS: levofloxacin-dextrose 5 % 500 MG/100 ML PREMIX 100 MG IV (11:44)
--- NOTE | 2022-03-14 11:55 | P.OP_ITS ---
Operative Report Date of procedure: March 14, 2022 Pre-op diagnosis: 1. Left mid ureteral stone with obstruction, solitary kidney Post-op diagnosis: 1. Left mid ureteral stone with obstruction, solitary kidney Procedure done: 1. Cystoscopy, LEFT: Retrograde 2. LEFT: Ureteroscopy, stone extraction, stent Implants: Left ureteral stent, 7 Dominican by 26 cm double-pigtail without string Specimens removed/disposition: Left ureteral stone Pathology: Left ureteral stone Surgeon: Rusty Estimated blood loss: None Urine output: Not measured Complications: None Findings: Anesthesia: General Condition: Stable Disposition: PACU Intraoperative findings: * Stone in the expected position on retrograde pyelogram * Easily accessible with ureteroscope and removed intact without requirement for fragmentation. * 7 Dominican by 26 cm double-pigtail stent left indwelling at the completion of the procedure. Brief History: Rebeca is a very pleasant 71-year-old white female who I evaluated for the first time this morning after admission last night for refractory left renal colicky type symptoms as well as gross hematuria with discovery of a solitary kidney on the left and a mid ureteral stone with partial obstructive changes. She was not anuric, there is no clear evidence of infection. We reviewed options and ultimately she elected to proceed with endoscopy due to the increased risk associated with solitary kidney and obstructing stone. Procedure: After urgent evaluation examination and obtaining of informed consent she was taken to the operating suite on 03/14/2022 where general anesthesia was administered without difficulty after appropriate timeout was performed, SCDs confirmed to be functioning, preoperative antibiotics administered, beta-huan protocol confirmed. Prepped and draped in usual sterile fashion in dorsolithotomy position pain careful attention to avoid pressure points. 21 Dominican cystoscope with 30 degree lens was introduced into the urethra meatus and advanced to the bladder without difficulty. The bladder was systematically examined. No stones were seen. No other gross pathology identified. An 8 Dominican cone-tip catheter was intubated into the left ureteral orifice for left retrograde ureteropyelogram demonstrating: Flexible tip guidewire was then advanced up the left ureter easily bypassing the stone. The distal ureter was then dilated with a 15 Dominican 4 cm balloon. The scope was removed and the wire was secured to the drapes as a safety wire. A 7 Dominican offset semirigid ureteroscope was then advanced up the left ureter next to the guidewire. Stone was encountered slightly proximal to its expected position. It appeared to be small enough to withdraw without fragmentation. Trigrasping forceps were then utilized to secure the stone and with careful none tension manipulation the stone was removed without difficulty. No laser was required. Some business services sales representative samples were obtained with the X catch basket. The ureter was carefully inspected as the scope was removed. No additional fragments were identified. There was some inflammation at the site of the stone. The cystoscope was then backloaded over the guidewire and a 7 Dominican by 26 m double-pigtail stent was advanced over the guidewire through the cystoscope into appropriate position as confirmed via fluoroscopy and cystoscopy. The stent was confirmed to be draining appropriately. Bladder was drained and the procedure was completed. She tolerated the procedure well without complications and was awakened in the operating room and returned to the recovery room in stable condition. PLANS: 1. Can be discharged per hospitalist's criteria. 2. Follow-up in second week March for cystoscopy and stent removal.
--- NOTE | 2022-03-14 11:58 | SC_ITS ---
WS: [id number] Exam: C-arm [facility] for Urology Date/Time of Exam: 03/14/2022 11:58 AM Reason For Exam: kidney stone Intraoperative anterior posterior C-arm images of the left abdomen and pelvis are submitted for evalu ation. Left retrograde pyelogram is performed. Persistent small intraluminal filling defect seen in the mid left ureter apparently represents a known retained stone in the left ureter. One image depicts a uret eroscope in place extending into the region of the right kidney. No other significant finding on this limited series [place]/C-arm [place] for Urology IMPRESSION: 1. Persistent filling defect in the mid left ureter apparently representing a k nown ureteral stone.
--- NOTE | 2022-03-14 12:14 | P.PN_ITS ---
Subjective Subjective: This morning she says she is doing okay all things considering. Apart from her other symptoms she states she has been having some cough, mild nausea, no diarrhea. At home she is normally on 3 L of oxygen. Vitals/I&O/Wt Last Vital Signs Temp 97.9 F 03/14/22 10:19 Pulse 63 03/14/22 10:19 Resp 18 03/14/22 10:19 BP 121/59 03/14/22 10:19 Pulse Ox 95 03/14/22 10:19 O2 Del Method 03/14/22 10:19 O2 Flow Rate 3 03/14/22 10:19 03/13/22 03/14/22 03/14/22 22:59 06:59 14:59 Intake Total 500 / 500 Balance 500 / 500 Weight last 48 hrs Weight 97.522 kg Physical Exam Const: COMMON NORMALS: patient oriented x3 and alert GENERAL APPEARANCE: cooperative NUTRITIONAL APPEARANCE: overweight ORIENTATION/CONSCIOUSNESS: Yes awake HENMT: COMMON NORMALS: oropharynx normal Neck/C-Spine: COMMON NORMALS: no JVD Resp: COMMON NORMALS: normal respiratory effort and clear to auscultation bilaterally AUSCULTATION: clear to auscultation bilaterally OTHER: Some cough, minimal wheeze if any. Cardio: COMMON NORMALS: no JVD, regular rhythm, S1 normal heart sound present, S2 normal heart sound present and No murmurs present (Cardio) RHYTHM: regular rhythm HEART SOUNDS: S1 normal heart sound present and S2 normal heart sound present GI: COMMON NORMALS: Normal to inspection, nondistended, normoactive bowel sounds present, Soft to palpation and non-tender PALPATION: Yes Soft to palpation Extremity: COMMON NORMALS: no joint enlargement OTHER: Trace edema. Neuro: COMMON NORMALS: patient oriented x3 and moves all extremities SENSORIUM/ORIENTATION: Yes alert Skin: COMMON NORMALS: no rashes or lesions noted GENERAL SKIN EXAM: no rashes or lesions noted Data : 03/14/22 04:25 03/14/22 04:25 A&P Assessment and plan (1) Hematuria: Xarelto has been held. Going for cystoscopy, ureteroscopy and stone extraction/lithotripsy. (2) Abdominal pain: (3) Renal colic: (4) Chronic anticoagulation: (5) Atrial fibrillation: Continue diltiazem, dofetilide. Xarelto on hold for now. (6) Diastolic heart failure: (7) CKD (chronic kidney disease): Plan Cough: Appears to have possibly some mild bronchitis. Some cough, mild nausea. Minimal wheeze. Will test rapid COVID. Chest x-ray. Normally on 3 L oxygen at home at baseline. Continue neb treatments. hypertension COPD CODE STATUS: Full code. Attestations Medical Necessity Statement*: Continue hospitalization due to hematuria with urolithiasis while on anticoagulation, stone extraction. Coding Level of Care Code Acute Assembler Filters for g Fwd Diagnoses Hematuria R31.9 Abdominal pain R10.9 Renal colic N23 Chronic anticoagulation Z79.01 Atrial fibrillation I48.91 Diastolic heart failure I50.30 CKD (chronic kidney disease) N18.9
--- NOTE | 2022-03-14 12:41 | DCPLANNER ---
business relations manager had message to schedule a follow up appointment for patient with urology. Patient was admitted to hospital, and was seen by Dr. Ojeda.
[2022-03-14] MEDS: fentaNYL 50 mcg/mL INJ 2mL IVP (13:52)
--- NOTE | 2022-03-14 14:12 | XR_ITS ---
WS: [id number] Exam: XR chest 1V portable [id number] Date/Time of Exam: 03/14/2022 2:16 PM Reason For Exam: cough Comparison 02/19/2022. There is probable infiltrate in the left retrocardiac region. The heart is enlarged but unchanged in size. Remaining lung bullock are clear. No pleural effusions. The mediastinum is normal in contour. Gómez rgical clips along the right axilla. Recommendations: A detailed PA and lateral chest radiograph would be helpful for more accurate evalua tion. XR/XR chest 1V portable [id number] IMPRESSION: 1. Probable infiltrate in the left lower lobe that may represent developing pne umonia. 2. Cardiac enlargement unchanged.
--- NOTE | 2022-03-14 14:47 | ANE.PACU2 ---
Inpatient post-anesthesia follow up: Airway intact: Yes Vital signs: Temperature 97.2 F Pulse Rate 70 Respiratory Rate 18 Blood Pressure 118/70 Pulse Oximetry 95 Oxygen Delivery Me thod Nasal Cannula Oxygen Flow Rate 3 Fraction of Inspir ed Oxygen Hydration adequate: Yes Nausea and vomiting: No Pain level: 1 Mental status: Baseline
[2022-03-14] MEDS: oxyCODONE-APAP 5-325 mg Tablet 1 TAB PO ×2 (14:54→20:28)
[2022-03-14 15:19] LABS: SARS Covid-2 Antigen Negative (Negative)
[2022-03-14] MEDS: ipratropium-albuterol 3 mL Neb INHALATION ×2 (16:20→20:06)
[2022-03-14] MEDS: zolpidem 5 mg Tablet 10 MG PO (22:29)
[2022-03-14] MEDS: montelukast sodium 10 mg Tablet PO (22:29)
[2022-03-15] VITALS (10 sets, daily range): BP systolic 115–127; BP diastolic 68–72; PULSE 68–87; RESP 16–18; TEMP 36.4–36.9; O2SAT 91–96
[2022-03-15] MEDS: dilTIAZem 30 mg Tablet PO ×2 (01:38→08:52)
[2022-03-15 04:51] LABS: Basophils % 0.1 %; Hematocrit 39.1 % (37.0-47.0); Hemoglobin 12.3 g/dL (11.5-15.3); Lymphocytes # 0.5 10^3/uL (0.8-4.8); Lymphocytes % 5.1 %; Mean Corpuscular HGB Conc 31.5 g/dL (30.0-36.0); Mean Corpuscular Hemoglobin 30.9 pg (28.0-34.0); Mean Corpuscular Volume 98.2 fl (81-99); Monocytes # 0.3 10^3/uL (0.2-0.9); Monocytes % 3.2 %; Neutrophils # 9.23 10^3/uL (1.8-7.7); Neutrophils % 90.9 %; Nucleated Red Blood Cells % 0 %; Platelet Count 311 10^3/cmm (130-400); Red Blood Count 3.98 10^6/uL (4.1-5.3); Red Cell Distribution Width 14.4 % (12.1-15.1); White Blood Count 10.2 10^3/uL (4.0-10.0)
[2022-03-15 05:16] LABS: Anion Gap 16.8 (5-19); Blood Urea Nitrogen 13 mg/dL (8-23); Calcium 9.8 mg/dL (8.5-10.5); Carbon Dioxide 27 mmol/L (22-29); Chloride 103 mmol/L (98-107); Glucose 228 mg/dL (65-115); Osmolality Calculated 301 mOsm/kg (285-295); Potassium 4.8 mmol/L (3.5-5.1); Sodium 142 mmol/L (136-145)
[2022-03-15] MEDS: ipratropium-albuterol 3 mL Neb INHALATION ×2 (07:35→11:23)
[2022-03-15] MEDS: pantoprazole DR 40 mg Tablet PO (08:53)
[2022-03-15] MEDS: magnesium lactate 84 mg Tablet PO (08:53)
[2022-03-15] MEDS: atorvastatin 40 mg Tablet 80 MG PO (08:53)
[2022-03-15] MEDS: predniSONE 10 mg Tablet PO (08:53)
[2022-03-15] MEDS: ALPRAZolam 0.5 mg Tablet PO (08:53)
[2022-03-15] MEDS: sennosides-docusate Tablet 1 TAB PO (08:53)
[2022-03-15] MEDS: levofloxacin-dextrose 5 % 750 MG/150 ML PREMIX 100 MG IV (08:55)
[2022-03-15] MEDS: levoFLOXacin 500 mg Tablet PO (10:54)
--- NOTE | 2022-03-15 10:54 | P.DS_ITS ---
Discharge Providers Date of Admission: 03/13/22 20:28 Date of Discharge: March 15, 2022 Attending Provider at Admission: Naeem Hale MD Attending Provider at Discharge: Ezra Chaudhari Primary Care Provider: Ava Fernandez DO Diagnoses at Discharge Discharge Diagnosis (1) Left ureteral calculus: Status: Acute (2) Solitary kidney, congenital: Status: Acute (3) Hematuria: Status: Acute (4) Renal colic: Status: Acute (5) CKD (chronic kidney disease): Status: Acute Reason for Visit Reason for Visit: possible AFIB Hospital Course Hospital Course Pleasant 71-year-old lady with history of COPD, currently on 3 L oxygen at home, atrial fibrillation on anticoagulation with Xarelto, dofetilide, Cardizem, Toprol, history of CHF was admitted for assessment of management due to abdominal pain, nausea, hematuria while on anticoagulation, was found to have left ureterolithiasis, after assessment by urology, discussion of options underwent cystoscopy, ureteroscopy, stone retrieval, stent placement, he is asked to follow-up with urology in office. She is also been having progressive cough over the last several days, states that her sputum has been starting to turn green in color. He was assessed with rapid COVID-19 which was negative. Chest x-ray suspicious for infiltrate re lated to pneumonia in left lower lobe for which she is given Levaquin. Risk class III with pneumonia severity index, was monitored in hospital, but did otherwise well, today is doing well on 2 L nasal cannula, lungs sound much better. Due to intertrigo is given prescription for nystatin powder. Physical Exam Const: COMMON NORMALS: patient oriented x3 and alert GENERAL APPEARANCE: cooperative NUTRITIONAL APPEARANCE: overweight ORIENTATION/CONSCIOUSNESS: Yes awake HENMT: COMMON NORMALS: oropharynx normal Neck/C-Spine: COMMON NORMALS: no JVD Resp: COMMON NORMALS: normal respiratory effort and clear to auscultation bilaterally AUSCULTATION: clear to auscultation bilaterally Cardio: COMMON NORMALS: no JVD, regular rhythm, S1 normal heart sound present, S2 normal heart sound present and No murmurs present (Cardio) RHYTHM: regular rhythm HEART SOUNDS: S1 normal heart sound present and S2 normal heart sound present GI: COMMON NORMALS: Normal to inspection, nondistended, normoactive bowel sounds present, Soft to palpation and non-tender PALPATION: Yes Soft to palpation Extremity: COMMON NORMALS: no joint enlargement and no pedal edema Neuro: COMMON NORMALS: patient oriented x3 and moves all extremities SENSORIUM/ORIENTATION: Yes alert Discharge Data Studies Completed and Pending Completed Studies During Hospitalization Category Date Time Status CT abdomen pelvis w con* [id number] Stat Cat Scan 03/13/22 17:27 Completed CXRP [XR chest 1V portable [id number]] Routine Exams 03/14/22 14:12 Completed XR KUB portable [id number] Stat Exams 03/13/22 20:08 Completed Pending at discharge Category Date Time Status Basic Metabolic Panel AM LABS Lab 03/16/22 04:00 Ordered Complete Blood Count w/Auto AM LABS Lab 03/16/22 04:00 Ordered Stone Analysis Routine Lab 03/14/22 12:45 Received Pathology: Surgical [PTH] Routine Pth 03/14/22 12:45 Received Radiology Impressions Abdomen/Pelvis CT 03/13/22 17:27 IMPRESSION: 1. Small stone in the mid left ureter. 2. Congenitally absent right kidney KUB X-Ray 03/13/22 20:08 IMPRESSION: No acute finding. C-Arm Fluoroscopy 03/14/22 11:58 IMPRESSION: 1. Persistent filling defect in the mid left ureter apparently representing a known ureteral stone. Chest X-Ray 03/14/22 14:12 IMPRESSION: 1. Probable infiltrate in the left lower lobe that may represent developing pneumonia. 2. Cardiac enlargement unchanged. Laboratory Results WBC 10.2 10^3/uL (4.0-10.0) H 03/15/22 04:11 RBC 3.98 10^6/uL (4.1-5.3) L 03/15/22 04:11 Hgb 12.3 g/dL (11.5-15.3) 03/15/22 04:11 Hct 39.1 % (37.0-47.0) 03/15/22 04:11 MCV 98.2 fl (81-99) 03/15/22 04:11 MCH 30.9 pg (28.0-34.0) 03/15/22 04:11 MCHC 31.5 g/dL (30.0-36.0) 03/15/22 04:11 RDW 14.4 % (12.1-15.1) 03/15/22 04:11 Plt Count 311 10^3/cmm (130-400) 03/15/22 04:11 MPV 10.0 fL (7.4-10.4) 03/15/22 04:11 Neut % (Auto) 90.9 % 03/15/22 04:11 Lymph % (Auto) 5.1 % 03/15/22 04:11 Citrus % (Auto) 3.2 % 03/15/22 04:11 Eos % (Auto) 0.0 % 03/15/22 04:11 Baso % (Auto) 0.1 % 03/15/22 04:11 Neut # (Auto) 9.23 10^3/uL (1.8-7.7) H 03/15/22 04:11 Lymph # (Auto) 0.5 10^3/uL (0.8-4.8) L 03/15/22 04:11 [place] # (Auto) 0.3 10^3/uL (0.2-0.9) 03/15/22 04:11 Eos # (Auto) 0.0 10^3/uL (0.0-0.8) 03/15/22 04:11 Baso # (Auto) 0.0 10^3/uL (0.0-0.1) 03/15/22 04:11 Nucleated RBC % (auto) 0 % 03/15/22 04:11 Nucleated RBCs # 0.0 /100WBC 03/15/22 04:11 PT 13.40 SECONDS (12.1-14.9) 03/14/22 04:25 INR 0.99 (0.8-1.2) 03/14/22 04:25 Sodium 142 mmol/L (136-145) 03/15/22 04:11 Potassium 4.8 mmol/L (3.5-5.1) 03/15/22 04:11 Chloride 103 mmol/L (98-107) 03/15/22 04:11 Carbon Dioxide 27 mmol/L (22-29) 03/15/22 04:11 Anion Gap 16.8 (5-19) 03/15/22 04:11 BUN 13 mg/dL (8-23) 03/15/22 04:11 Creatinine 1.3 mg/dL (0.5-0.9) H 03/15/22 04:11 GFR Calculation Not Reportable 03/15/22 04:11 Glucose 228 mg/dL (65-115) H 03/15/22 04:11 Calculated Osmolality 301 mOsm/kg (285-295) H 03/15/22 04:11 Calcium 9.8 mg/dL (8.5-10.5) 03/15/22 04:11 Total Bilirubin 0.4 mg/dL (0.15-1.2) 03/13/22 14:17 AST 14 U/L (0-32) 03/13/22 14:17 ALT 7 U/L (0-33) 03/13/22 14:17 Alkaline Phosphatase 86 U/L (35-105) 03/13/22 14:17 Total Protein 6.6 g/dL (6.6-8.7) 03/13/22 14:17 Albumin 3.8 g/dL (3.5-5.2) 03/13/22 14:17 Globulin 2.8 g/dL (1.3-4.6) 03/13/22 14:17 Lipase 34 U/L (13-60) 03/13/22 14:17 Procalcitonin 0.04 ng/mL (0-0.5) 03/14/22 04:25 Urine Color Red (Yellow) 03/13/22 13:46 Urine Appearance Bloody (CLEAR) A 03/13/22 13:46 Urine pH 6 (5-7) 03/13/22 13:46 Ur Specific [place] 1.015 (1.005-1.030) 03/13/22 13:46 Urine Protein 2+ (Negative) H 03/13/22 13:46 Urine Glucose (UA) Norm (Normal) 03/13/22 13:46 Urine Ketones Negative (Negative) 03/13/22 13:46 Urine Blood 3+ (Negative) H 03/13/22 13:46 Urine Nitrate Negative (Negative) 03/13/22 13:46 Urine Bilirubin Neg (Negative) 03/13/22 13:46 Urine Urobilinogen Norm mg/dL (Negative) 03/13/22 13:46 Ur Leukocyte Esterase Negative (Negative) 03/13/22 13:46 Urine RBC Too numerous to cnt /hpf (0-2) H 03/13/22 13:46 Urine WBC 5-10 /hpf (0-5) H 03/13/22 13:46 Ur Squamous Epith Cells None /hpf (0-5) 03/13/22 13:46 Amorphous Sediment Not Reportable 03/13/22 13:46 Urine Bacteria 1+ /hpf (NONE) H 03/13/22 13:46 SARS-CoV-2 Ag (Rapid) Negative (Negative) 03/14/22 14:50 Vitals Last Vital Signs Temp 98.4 F 03/15/22 07:27 Pulse 80 03/15/22 07:41 Resp 16 03/15/22 07:36 BP 127/71 03/15/22 07:27 Pulse Ox 94 03/15/22 07:36 O2 Del Method 03/15/22 07:36 O2 Flow Rate 2 03/15/22 07:36 Discharge Plan Discharge Patient Disposition: Home Condition: Stable Prescriptions: New levofloxacin 500 mg tablet 500 mg PO DAILY 5 Days Qty: 5 0RF nystatin 100,000 unit/gram powder 1 applic topical BID Qty: 30 0RF Rx Instructions: Intertriginous areas guaifenesin 400 mg tablet 400 mg PO TID Qty: 21 0RF Continued Xarelto 15 mg tablet 15 mg PO DAILY Qty: 30 2RF Rx Instructions: must administer with evening meal furosemide [Lasix] 40 mg tablet 40 mg PO BID 30 Days Qty: 60 2RF hydrocodone-acetaminophen 10-325 mg tablet 1 tab PO Q6H PRN (Reason: Pain) 30 Days Qty: 120 0RF metoprolol tartrate 25 mg tablet 12.5 mg PO BID Qty: 90 3RF magnesium L-lactate [Magtab] 84 mg tablet extended release 84 mg PO BID Qty: 180 3RF sennosides-docusate sodium [Stool Softener-Laxative] 8.6-50 mg Tablet 1 tab PO BID Qty: 60 0RF pantoprazole 40 mg Tablet,Delayed Release (Dr/Ec) 40 mg PO DAILY Qty: 14 0RF lactulose 10 gram/15 mL solution 10 g PO DAILY PRN (Reason: constipation) Qty: 237 0RF alprazolam 1 mg Tablet 0.5 mg PO BID 14 Days Qty: 14 0RF montelukast 10 mg Tablet 1 mg PO BEDTIME Qty: 30 0RF zolpidem 10 mg Tablet 10 mg PO BEDTIME Qty: 30 0RF rosuvastatin 20 mg Tablet 20 mg PO DAILY 30 Days Qty: 30 0RF albuterol sulfate 2.5 mg /3 mL (0.083 %) Solution For Nebulization 2.5 mg INHALATION Q4H PRN (Reason: Shortness Of Breath) albuterol sulfate 90 mcg/actuation Hfa Aerosol Inhaler 1 puff INHALATION QID PRN (Reason: Shortness Of Breath) diltiazem HCl [Cardizem LA] 240 mg tablet extended release 24 hr 240 mg PO DAILY Qty: 90 2RF prednisone 10 mg tablet 10 mg PO DAILY promethazine 6.25 mg/5 mL Syrup 6.25 mg PO QID PRN (Reason: Cough) potassium chloride 20 mEq Tablet Extended Release 40 meq PO DAILY Anoro Ellipta 62.5-25 mcg/actuation blister with device 1 inh INHALATION BID dofetilide 125 mcg capsule 250 mcg PO BID 30 Days Qty: 120 3RF Discharge Orders: Discharge Order (Routine); Ordered 03/15/22 Ordered By: Ezra Chaudhari Referrals: Jacques Mena MD [Physician] - 2 weeks (DR. MENA'S OFFICE WILL CALL WITH AN APPOINTMENT. ) Ava Fernandez DO [Primary Care Provider] - 03/16/22 2:15 pm Discharge Diet: Advance as tolerated Discharge Activity: Increase activity as tolerated and Oxygen as instructed Patient Instructions: Renal Colic (ED), Abdominal Pain (ED), Opioid Safety, Pain Management Activity Restrictions/Additional Instructions: UROLOGY INSTRUCTIONS: 1. The stone was easily removed without fragmentation. 2. A stent was left indwelling to wait for swelling to resolve before its removal. We will plan on removing it in my clinic in about 2 weeks. 3. The stent will create urgency, frequency, blood in the urine, sometimes flan k pain with voiding. These were all normal. They tend to get better with time and will resolve once the stent is removed. Discharge Attestations Time Spent in Discharge Care*: greater than 30 min Status at Discharge: Cognitive status at discharge: cognitively intact , Behavioral status at discharge: cooperative , Quality Metrics Clinical Quality Measures [ No reported AMI, CVA or VTE this stay] Coding Level of Care Code Acute Chg FW DC note Diagnoses Left ureteral calculus N20.1 Solitary kidney, congenital Q60.0 Hematuria R31.9 Renal colic N23 CKD (chronic kidney disease) N18.9
--- NOTE | 2022-03-15 12:44 | PC.NURSE ---
Discussed discharge, new medications, follow up appointments and urology instructions with patient. Patient verbalized understanding.
[2022-03-17 19:33] LABS: Stone Source URETERAL STONE
== END 2022-03-15 12:46 | disposition home or self-care (01) | DRG 659 ==
LOC: ER 21:59 → MEDSURG 22:43
PROVIDERS: Family Medicine; Urology; Admitting Provider Internal Medicine; Emergency Provider Emergency Medicine; PCP Family Medicine; Visit Provider Internal Medicine
PROC: 0TJB8ZZ Inspection of Bladder, Via Natural or Artificial Opening Endoscopic (ICD-10-PCS; CPT 52000; principal; 2022-03-14 11:30)
PROC: 0T778DZ Dilation of Left Ureter with Intraluminal Device, Via Natural or Artificial Opening Endoscopic (ICD-10-PCS; CPT 74420; 2022-03-14 11:30)
PROC: 0TJ98ZZ Inspection of Ureter, Via Natural or Artificial Opening Endoscopic (ICD-10-PCS; CPT 52351; 2022-03-14 11:30)
PROC: 0T778DZ Dilation of Left Ureter with Intraluminal Device, Via Natural or Artificial Opening Endoscopic (ICD-10-PCS; CPT 50605; 2022-03-14 11:30)
DX: N20.2 Calculus of kidney with calculus of ureter (principal); J18.9 Pneumonia, unspecified organism; I13.0 Hypertensive heart and chronic kidney disease with heart failure and stage 1 through stage 4 chronic kidney disease, or unspecified chronic kidney disease; I50.32 Chronic diastolic (congestive) heart failure; Q60.0 Renal agenesis, unilateral; N18.9 Chronic kidney disease, unspecified; E11.22 Type 2 diabetes mellitus with diabetic chronic kidney disease; J44.9 Chronic obstructive pulmonary disease, unspecified; Z99.81 Dependence on supplemental oxygen; I48.91 Unspecified atrial fibrillation; F17.200 Nicotine dependence, unspecified, uncomplicated; R31.9 Hematuria, unspecified; Z79.01 Long term (current) use of anticoagulants; Z79.891 Long term (current) use of opiate analgesic; Z79.51 Long term (current) use of inhaled steroids
CPT/HCPCS: 36415; 71045; 74018; 74177; 76000; 80048; 80053; 81001; 82365; 83690; 84145; 85025; 85610; 87426; 88300; 93005; 94640; 96374; 96375; 99285; C2625; J0330; J1100; J1956; J2405; J2704; J2710; J3010; J3490; J7030; J7512

== ENCOUNTER 2022-03-20 18:15 | Emergency (ER) | payer MEDICARE, BC, SELFPAY ==
[2022-03-20 18:27] VITALS: PULSE 87; RESP 20; TEMP 36.8; O2SAT 96; BMI 35.0
[2022-03-20 18:31] VITALS: BP 102/57
--- NOTE | 2022-03-20 18:31 | ECG_ITS ---
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 Measurements Intervals [place] Rate: 99 P: ID: QRS: 42 QRSD: 90 T: 77 QT: 283 QTc: 364 Interpretive Statements ATRIAL FIBRILLATION WITH ABERRANT CONDUCTION OR VENTRICULAR PREMATURE COMPLEXES LOW QRS VOLTAGE IN PRECORDIAL LEADS [QRS DEFLECTION < 1.0 mV IN CHEST LEADS] MINIMAL ST DEPRESSION [0.025+ mV ST DEPRESSION] ABNORMAL RHYTHM ECG INTERPRETATION BASED ON A DEFAULT AGE OF 40 YEARS Compared to ECG 03/13/2022 13:50:56 Ventricular premature complex(es) now present Aberrant conduction of supraventricular beat(s) now present ST (T wave) deviation now present Sinus bradycardia no longer present First degree AV block no longer present Electronically Signed On 03-20-2022 22:43:51 CDT by Harsh Hernandez M.D. [email or web address]
--- NOTE | 2022-03-20 18:39 | XRR_ITS ---
PROCEDURE INFORMATION: Exam: XR Chest Exam date and time: 03/20/2022 6:56 PM Age: 71 years old Clinical indication: Pain; Chest pressure; Additional info: Cp TECHNIQUE: Imaging protocol: Radiologic exam of the chest. Views: 1 view. COMPARISON: CR XR chest 1V portable [id number] 03/14/2022 2:21 PM FINDINGS: Lungs: Lungs are clear bilaterally. Pleural spaces: No pleural effusion. No pneumothorax. Heart/Mediastinum: Stable marked enlargement of the cardiac silhouette. Mediastinal contours are unremarkable. Vasculature: Stable vascular calcifications in the aorta. Bones/joints: Unremarkable for age. Soft tissues: Surgical clips in the right axilla are stable. XR/XR chest 1V portable [id number] IMPRESSION: 1. No acute cardiopulmonary process. 2. Incidental/nonacute findings are listed in the report.
--- NOTE | 2022-03-20 19:07 | W.ED.CHESTPA ---
HPI - Chest Pain General: Chief Complaint: Chest Pain Stated Complaint: Afib and [place]um[place] Time Seen by Provider: 03/20/22 18:39 Source: patient Mode of arrival: ambulatory Limitations: no limitations History of Present Illness: 71-year-old female has a history of A. fib states that she has been having palpitations throughout the day and felt like that she has been in A. fib states her heart rates been slow and fast she has had some she states what feels like burning in her lungs she is recently treated for pneumonia is finished her antibiotics she is on 3 L oxygen at baseline here her pulse ox was 96% here on 2 L. Her heart rates in the 80s. She denies any fever denies any worsening improving factors. Associated symptoms: Reports palpitations; Deny abdominal pain, dyspnea, fever(s), nausea or vomiting Review of Systems Const: Denies: fever(s), chills, body aches or change in appetite Eyes: Denies: blurry vision or eye discomfort ENMT: Denies: throat pain or dental pain Card: Reports: chest pain, palpitations and irregular heart rhythm Resp: Denies: dyspnea GI: Denies: abdominal pain, nausea, vomiting or diarrhea : Denies: dysuria Musc: Denies: neck pain or back pain Skin/Breast: Denies: rash Neuro: Denies: headache(s) Psych: Denies: depression Mahesh/Lymph: Denies: easy bruising All/Imm: Denies: urticaria PFSH ED PFSH: Medical History Abdominal pain Acute diastolic heart failure Acute kidney injury superimposed on CKD HERBER (acute kidney injury) Atrial fibrillation Atrial fibrillation with rapid ventricular response Atrial fibrillation with RVR Chronic anticoagulation Chronic kidney disease COPD (chronic obstructive pulmonary disease) Dehydration Fatigue Generalized weakness History of syncope HTN (hypertension) with goal to be determined Hypokalemia Right heart failure T2DM (type 2 diabetes mellitus) Volume overload Surgical History Hx of cholecystectomy Social History Smoking and tobacco status: current every day smoker Alcohol intake: never Marital status: / Physical Exam Const: COMMON NORMALS: no acute distress, patient oriented x3 and healthy appearing HENMT: COMMON NORMALS: normocephalic and atraumatic HEAD & SCALP: normocephalic and atraumatic Eye: COMMON NORMALS: Equal, round and reactive pupils present and EOMs intact bilaterally PUPIL: Yes Equal, round and reactive pupils present Neck/C-Spine: COMMON NORMALS: full ROM and supple Chest: COMMONS NORMALS: normal inspection of the chest and normal palpation of entire chest wall Resp: COMMON NORMALS: normal respiratory effort, No retractions, No use of accessory muscles and clear to auscultation bilaterally AUSCULTATION: clear to auscultation bilaterally Cardio: COMMON NORMALS: regular rate and No murmurs present (Cardio) RATE: regular rate and tachycardic RHYTHM: abnormal rhythm irregularly irregular GI: COMMON NORMALS: Normal to inspection, nondistended, normoactive bowel sounds present, Soft to palpation, non-tender and no masses PALPATION: Yes Soft to palpation Extremity: COMMON NORMALS: normal to inspection and full ROM Neuro: COMMON NORMALS: patient oriented x3, moves all extremities and no focal motor deficits Psych: COMMON NORMALS: mental status grossly normal, Normal thought process present and cooperative THOUGHT PROCESS: Normal thought process present Skin: COMMON NORMALS: no rashes or lesions noted and no wounds GENERAL SKIN EXAM: no rashes or lesions noted Course Vital Signs: Vital signs: Vital Signs Temperature 98.3 F 03/20/22 18:27 Pulse Rate 68 03/20/22 20:21 Respiratory Rate 18 03/20/22 20:21 Blood Pressure 113/63 03/20/22 20:21 Pulse Oximetry 95 03/20/22 20:21 Oxygen Delivery Me thod 03/20/22 20:21 Oxygen Flow Rate 3 03/20/22 19:46 MDM - Chest Pain Medical Decision Making Patient presents with palpitations and concerns with her A. fib her heart rate here has been controlled she is well-appearing here her troponin is at her baseline she has had no pain here she is stable for discharge she is to follow-up with her biopharmaceutical rep and return if worsening she understands and agrees to plan. Lab Data : 03/20/22 18:56 03/20/22 18:56 Radiology Impressions Chest X-Ray 03/20/22 18:39 IMPRESSION: 1. No acute cardiopulmonary process. 2. Incidental/nonacute findings are listed in the report. Laboratory Results WBC 10.3 10^3/uL (4.0-10.0) H 03/20/22 18:56 RBC 4.23 10^6/uL (4.1-5.3) 03/20/22 18:56 Hgb 13.3 g/dL (11.5-15.3) 03/20/22 18:56 Hct 40.7 % (37.0-47.0) 03/20/22 18:56 MCV 96.2 fl (81-99) 03/20/22 18:56 MCH 31.4 pg (28.0-34.0) 03/20/22 18:56 MCHC 32.7 g/dL (30.0-36.0) 03/20/22 18:56 RDW 14.6 % (12.1-15.1) 03/20/22 18:56 Plt Count 338 10^3/cmm (130-400) 03/20/22 18:56 MPV 10.1 fL (7.4-10.4) 03/20/22 18:56 Neut % (Auto) 68.4 % 03/20/22 18:56 Lymph % (Auto) 17.6 % 03/20/22 18:56 [place] % (Auto) 10.4 % 03/20/22 18:56 Eos % (Auto) 2.8 % 03/20/22 18:56 Baso % (Auto) 0.4 % 03/20/22 18:56 Neut # (Auto) 7.06 10^3/uL (1.8-7.7) 03/20/22 18:56 Lymph # (Auto) 1.8 10^3/uL (0.8-4.8) 03/20/22 18:56 [place] # (Auto) 1.1 10^3/uL (0.2-0.9) H 03/20/22 18:56 Eos # (Auto) 0.3 10^3/uL (0.0-0.8) 03/20/22 18:56 Baso # (Auto) 0.0 10^3/uL (0.0-0.1) 03/20/22 18:56 Nucleated RBC % (auto) 0 % 03/20/22 18:56 Nucleated RBCs # 0.0 /100WBC 03/20/22 18:56 PT 16.50 SECONDS (12.1-14.9) H 03/20/22 18:56 INR 1.29 (0.8-1.2) H 03/20/22 18:56 Sodium Cancelled 03/20/22 18:56 Potassium Cancelled 03/20/22 18:56 Chloride Cancelled 03/20/22 18:56 Carbon Dioxide Cancelled 03/20/22 18:56 Anion Gap Cancelled 03/20/22 18:56 BUN Cancelled 03/20/22 18:56 Creatinine Cancelled 03/20/22 18:56 GFR Calculation Cancelled 03/20/22 18:56 Glucose Cancelled 03/20/22 18:56 Calculated Osmolality Cancelled 03/20/22 18:56 Calcium Cancelled 03/20/22 18:56 Total Bilirubin Cancelled 03/20/22 18:56 AST Cancelled 03/20/22 18:56 ALT Cancelled 03/20/22 18:56 Alkaline Phosphatase Cancelled 03/20/22 18:56 Troponin T Baseline 35 ng/L (0-10) H 03/20/22 18:56 Total Protein Cancelled 03/20/22 18:56 Albumin Cancelled 03/20/22 18:56 Globulin Cancelled 03/20/22 18:56 EKG Data EKG 1: I personally reviewed and interpreted this EKG as follows: EKG interpretation date: 03/20/22 EKG interpretation time: 18:26 Interpretation: afib with rvr hr [address] or t wave abnormalities qrs 90 qtc 339 Discharge Plan Discharge Patient Disposition: Home Clinical Impression: Atrial fibrillation Chest pain Qualifiers: Chest pain type: unspecified Qualified Code(s): R07.9 - Chest pain, unspecified Condition: Stable Prescriptions: No Action Xarelto 15 mg tablet 15 mg PO DAILY Qty: 30 2RF Rx Instructions: must administer with evening meal furosemide [Lasix] 40 mg tablet 40 mg PO BID 30 Days Qty: 60 2RF hydrocodone-acetaminophen 10-325 mg tablet 1 tab PO Q6H PRN (Reason: Pain) 30 Days Qty: 120 0RF metoprolol tartrate 25 mg tablet 12.5 mg PO BID Qty: 90 3RF magnesium L-lactate [Magtab] 84 mg tablet extended release 84 mg PO BID Qty: 180 3RF sennosides-docusate sodium [Stool Softener-Laxative] 8.6-50 mg Tablet 1 tab PO BID Qty: 60 0RF pantoprazole 40 mg Tablet,Delayed Release (Dr/Ec) 40 mg PO DAILY Qty: 14 0RF lactulose 10 gram/15 mL solution 10 g PO DAILY PRN (Reason: constipation) Qty: 237 0RF alprazolam 1 mg Tablet 0.5 mg PO BID 14 Days Qty: 14 0RF montelukast 10 mg Tablet 1 mg PO BEDTIME Qty: 30 0RF zolpidem 10 mg Tablet 10 mg PO BEDTIME Qty: 30 0RF rosuvastatin 20 mg Tablet 20 mg PO DAILY 30 Days Qty: 30 0RF albuterol sulfate 2.5 mg /3 mL (0.083 %) Solution For Nebulization 2.5 mg INHALATION Q4H PRN (Reason: Shortness Of Breath) albuterol sulfate 90 mcg/actuation Hfa Aerosol Inhaler 1 puff INHALATION QID PRN (Reason: Shortness Of Breath) diltiazem HCl [Cardizem LA] 240 mg tablet extended release 24 hr 240 mg PO DAILY Qty: 90 2RF prednisone 10 mg tablet 10 mg PO DAILY promethazine 6.25 mg/5 mL Syrup 6.25 mg PO QID PRN (Reason: Cough) potassium chloride 20 mEq Tablet Extended Release 40 meq PO DAILY Anoro Ellipta 62.5-25 mcg/actuation blister with device 1 inh INHALATION BID dofetilide 125 mcg capsule 250 mcg PO BID 30 Days Qty: 120 3RF nystatin 100,000 unit/gram powder 1 applic topical BID Qty: 30 0RF Rx Instructions: Intertriginous areas diltiazem HCl 120 mg capsule,extended release 24 hr 120 mg PO DAILY diltiazem HCl 30 mg tablet 30 mg PO Q8H PRN (Reason: Blood Pressure) Rx Instructions: TAKE IF BP OVER 110 guaifenesin 400 mg tablet 400 mg PO TID PRN (Reason: Congestion) Vitamin D3 25 mcg (1,000 unit) Tablet 25 mcg PO DAILY Discharge Orders: Discharge ED (Routine); Ordered 03/20/22 Ordered By: Roya Bautista Referrals: Ava Fernandez DO [Primary Care Provider] - 1-3 days Discharge Diet: Advance as tolerated Discharge Activity: Resume usual activity Patient Instructions: A-fib (Atrial Fibrillation) (ED), Chest Pain (ED) Coding Level of Care Code ED Customer Service Advocate for Chg Fwd Exam Comprehensive
[2022-03-20 19:14] LABS: Basophils % 0.4 %; Eosinophils # 0.3 10^3/uL (0.0-0.8); Eosinophils % 2.8 %; Hematocrit 40.7 % (37.0-47.0); Hemoglobin 13.3 g/dL (11.5-15.3); Lymphocytes # 1.8 10^3/uL (0.8-4.8); Lymphocytes % 17.6 %; Mean Corpuscular HGB Conc 32.7 g/dL (30.0-36.0); Mean Corpuscular Hemoglobin 31.4 pg (28.0-34.0); Mean Corpuscular Volume 96.2 fl (81-99); Mean Platelet Volume 10.1 fL (7.4-10.4); Monocytes # 1.1 10^3/uL (0.2-0.9); Monocytes % 10.4 %; Neutrophils # 7.06 10^3/uL (1.8-7.7); Neutrophils % 68.4 %; Nucleated Red Blood Cells % 0 %; Platelet Count 338 10^3/cmm (130-400); Red Blood Count 4.23 10^6/uL (4.1-5.3); Red Cell Distribution Width 14.6 % (12.1-15.1); White Blood Count 10.3 10^3/uL (4.0-10.0)
[2022-03-20 19:21] VITALS: BP 101/60; PULSE 69; RESP 18; O2SAT 99
[2022-03-20 19:28] LABS: INR 1.29 (0.8-1.2)
[2022-03-20 19:38] LABS: Troponin(5th) Baseline 35 ng/L (0-10)
[2022-03-20 19:46] VITALS: PULSE 82; RESP 18; O2SAT 95
[2022-03-20 19:49] VITALS: PULSE 99
--- NOTE | 2022-03-20 20:08 | PC.PHAR ---
PT UNSURE OF THE MG SHE TAKES OF DILTIAZEM ER - EXTERNAL MED LIST SHOWS ER 240MG FILLED 01/31/22 30DS AND ER 120MG FILLED 02/01/22 90DS- PT STS SHE WAS ON INSULIN BUT HAS NOT TAKEN ANY FOR ABOUT A WEEK, PT IS UNSURE OF THE NAMES OF THE INSULINS SHE USED TO TAKE
[2022-03-20 20:21] VITALS: BP 113/63; PULSE 68; RESP 18; O2SAT 95
== END 2022-03-20 20:44 | disposition home or self-care (01) ==
PROVIDERS: Emergency Provider Emergency Medicine; PCP Family Medicine
DX: I48.91 Unspecified atrial fibrillation (principal); R07.9 Chest pain, unspecified; I13.0 Hypertensive heart and chronic kidney disease with heart failure and stage 1 through stage 4 chronic kidney disease, or unspecified chronic kidney disease; I50.31 Acute diastolic (congestive) heart failure; E11.22 Type 2 diabetes mellitus with diabetic chronic kidney disease; N18.9 Chronic kidney disease, unspecified; J44.9 Chronic obstructive pulmonary disease, unspecified; F17.200 Nicotine dependence, unspecified, uncomplicated; Z79.01 Long term (current) use of anticoagulants
CPT/HCPCS: 71045; 84484; 85025; 85610; 93005; 99285

== ENCOUNTER → 2022-03-31 09:30 | Outpatient (BNVA) | payer MEDICARE, BC, SELFPAY | PROVIDERS: PCP Family Medicine; Visit Provider Urology | DX: N20.1 Calculus of ureter (principal); Z96.0 Presence of urogenital implants; Q60.0 Renal agenesis, unilateral; Z98.890 Other specified postprocedural states | CPT/HCPCS: 52310; 81003 ==

== ENCOUNTER → 2022-04-06 12:55 | Outpatient (BNVA) | payer MEDICARE, BC, SELFPAY | PROVIDERS: PCP Family Medicine; Visit Provider Internal Medicine Cardiovascular Disease | DX: I48.91 Unspecified atrial fibrillation (principal); I49.5 Sick sinus syndrome; J43.1 Panlobular emphysema; N18.9 Chronic kidney disease, unspecified; F17.200 Nicotine dependence, unspecified, uncomplicated; I50.31 Acute diastolic (congestive) heart failure | CPT/HCPCS: 36415; 80048; 85025; 85610; 86850; 86900; 99214 ==

== ENCOUNTER 2022-04-10 06:26 | Outpatient (CLI) | payer MEDICARE, BC, SELFPAY ==
--- NOTE | 2022-04-10 06:00 | XACV_ITS ---
Exam Room: [facility] Ht: 168 cm Wt: 98 kg BSA: 2.18 m2 Gender: Female : 1950 Any Known Allergies: Penicillins Exam Priority: Routine Procedure(s): Procedure Description: Diagnostic procedure Procedure Description: Miscellaneous Procedure Description: Dual Chamber Pacemaker Implant Diagnostic Cath Status: Elective Diagnostic Findings * This patient was brought to the cardiac catheterization lab for a dual-chamber permanent pacemaker evaluation. Apparently she did not have any peripheral venous access on the left side. An external jugular venous access obtained by the anesthesia service. We performed a venogram by injecting dye into the external jugular vein. The external jugular vein appeared to be draining into the brachiocephalic trunk. There was no significant black flow into the subclavian vein. I attempted subclavian venous access by using a micropuncture needle system. But this was unsuccessful. At this point, we aborted the procedure. Conclusions 1. This patient was brought to the cardiac catheterization lab for dual-chamber permanent pacemaker implantation. 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 Attempt to get subclavian venous access with a micropuncture needle system also was unsuccessful. The procedure was aborted at this point. Patient had a breast cancer surgery on the right side. Recommendations * Dr. Price was consulted. This patient may benefit from a Micra pacing system. Appointment was made with Dr. Price for tomorrow to be seen in his office and then decide on the pacemaker implantation. This was discussed with the patient and her family in detail which they understood well. Patient left the cardiac catheterization lab in stable condition. Diagnostic RX Recommendation: other cardiac therapy w/o CABG/PCI Pressures Phase:Rest AO : / ( -59 ) @ 8:51:00 AM / ( -59 ) @ 9:00:00 AM Clinical Evaluation EBL: 5mL-10mL Procedural Details Pre-Procedure Time Out. Identified patient by full name and date of as verbalized by the patient/guarantor. Does the consent match the physician's order: Yes. Accurate & Complete Informed Consent: Yes. Inpatient/Outpatient History & Physical on Chart: Yes. If H&P is completed, is and addenduem needed: No; If yes, is the addendum complete: N/A. Visualize and Verify Site with Patient/Guarantor: N/A. Relevant Radiology Images available: Yes. Pre-op teaching completed and patient verbalized understanding. The risks, benefits, and alternatives of sedation and/or procedure were discussed by physician. The patient agrees to continue. Procedure started. Correct patient, site and procedure confirmed by cath team. PERRLA. Strong, equal hand premix concrete batcher bilaterally. Lungs clear x 5 lobes. IV Site on Arrival: 20 gauge in the right IJ. IV Fluids: 0.9% NaCl at KVO. 0 mL infused prior to paint laboratory technician. Oxygen started at 2liters/min via nasal canula. Physician arrived. 20 mL contrast injection was performed for subclavian visualization. bilateral subclavian region was prepped with chloroprep then draped in the usual sterile fashion. Baseline sample Acquired. HR: 44 BPM. Supplies: Cath pack, micropunture, bovie pen, 2-0 silk, 0 surgilon, 3-0 vicryl, 4-0 vicryl. Pre sponge count: 55. 10 mL contrast injection was performed for subclavian visualization. Physician scrubbed in. Time out performed with cath team. Lidocaine 1% infiltrated to Left subclavian area. Lidocaine 1% infiltrated to Left subclavian area. Antibiotic stopped. Unable to obtain venous access. Procedure aborted per Dr. Cabezas. No bleeding or hematoma noted at left subclavian pocket. left subclavian pocket dressed per physician order. All final counts correct. PERRLA. Strong, equal hand premix concrete batcher bilaterally. No VTE prophylaxis required. Total IV fluids: 20 mL. Medication's Wasted: Other = Fentanyl 25 mcg Versed 1 mg. Estimated blood loss: 5mL-10mL. Responsiveness - Normal response to verbal stimuli; alert and oriented, PERRLA. Airway - Unaffected, no intervention required; spontaneous ventilation. Circulation: W/N/L, pulses unchanged. Nausea/Vomiting: No. Procedure completed. Patient transferred by bed to [facility]. Vital chart was stopped. Procedure Medications Start: 7:54 AM Stop: 7:54 AM Medication: Versed 1 mg and Fentanyl 25 mcg Amount: 1 Route: I.V. Start: 7:56 AM Stop: 7:56 AM Medication: Vancomycin Amount: 1 g Route: I.V.P.B Start: 8:00 AM Stop: 8:00 AM Medication: Versed 1 mg and Fentanyl 25 mcg Amount: 1 Route: I.V. Start: 8:10 AM Stop: 8:10 AM Medication: Versed 1 mg and Fentanyl 25 mcg Amount: 1 Route: I.V. I, the attending physician, have reviewed and verified all procedure medications. Yes, all medications given per verbal order History/Risk Factors Hypertension: No Dyslipidemia: No Peripheral Arterial Disease (PAD): No Myocardial Infarction (NC): No Obesity: No Renal Disease: No Prior Interventions PCI: No CABG: No Valve Surgery: No Report Signatures Finalized by Dr Massiel Cabezas MD [facility] on 04/10/2022 10:11 AM
[2022-04-10 07:13] VITALS: BP 133/77; PULSE 96; RESP 16; TEMP 37.1; O2SAT 94; BMI 34.8
--- NOTE | 2022-04-10 07:20 | W.PM.OPSUD ---
Surgery/Procedure H&P Update DATE OF PROCEDURE: April 10, 2022 DATE H&P PERFORMED: 04/06/22 H&P UPDATE INFORMATION: I have reviewed H&P completed within last 30 days, I have examined patient prior to procedure and No changes to prior documentation PREOP DIAGNOSIS: Symptomatic bradycardia cardia/atrial fibrillation/prolonged pauses PRIMARY INDICATION FOR PROCEDURE: Atrial fibrillation with rapid ventricular rate/prolonged pauses of more than 3 seconds/symptomatic bradycardia PLANNED PROCEDURE: Operation Date: 04/10/22 07:00 Proposed Procedures p Pacemaker Insertion [id number],I48.92,I50.31,I50.30(Not Applicable) - Massiel Cabezas MD PATIENT REASSESSED PRIOR TO SEDATION, WITH NO CHANGE NOTED: Yes PHYSICAL EXAM: alert, oriented x 3 and clear to auscultation bilaterally AIRWAY EVAL/ANESTHESIA PLAN: normal airway, see other exam findings, ASA II, Monitored Anesthesia, Local Anesthesia, Risks, benefits & alternatives of sedation and/or procedure discussed and Patient agrees to continue as planned
--- NOTE | 2022-04-10 07:32 | SUR.PREOP ---
A 20g EJ was placed on the left by Dr. Santa MD from anesthesiology
[2022-04-10 08:30] VITALS: BP 114/80; PULSE 123; RESP 17; O2SAT 96
[2022-04-10 08:45] VITALS: BP 107/68; PULSE 104; RESP 20; O2SAT 96
--- NOTE | 2022-04-10 08:45 | P.PCN_ITS ---
Procedure Note: Procedure: The patient was brought to the outpatient department for a scheduled permanent pacemaker implantation. An IV access was attempted in the left upper extremity. No IV access could be obtained. Anesthesia service came by and placed an IV access in the external jugular vein. The patient taken to the cardiac cardiac Histotechnologist Supervisor and a venogram was performed through the external jugular venous access. The vein was found to be draining into the brachiocephalic trunk. There was no significant backflow into the subclavian vein. I attempted to get a subclavian venous access using a micropuncture needle system. Apparently this was unsuccessful. 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 Patient had a breast cancer surgery on the right side. At this point it was decided to abort this procedure. Patient may benefit from a Micra pacemaker. This was discussed with the patient and her family. This was understood well. I contacted Dr. Price and discussed the case. Dr. Price is going to see this patient in his office this week and will make the arrangements to have the procedure done possibly early next week. Since the patient is remaining stable, she will be discharged home today. Complications: None Condition: stable Coding Level of Care Code Acute Residential Lawn Specialist for Emely Silva
--- NOTE | 2022-04-10 08:45 | SUR.PHASEII ---
Received the patient back from the label fuser tender at 0830. The procedure was unable to be completed due to anatomy. The patient came via wheelchair and ambulated to the bed. She is A & O x3. Dr. Cabezas at bedside explaining that the patient will need a surgical consult for the PPM insertion. Family at bedside. They both verbalized their understanding. card setter placed and vital sign obtained. Will monitor x 1 hour and DC home with an appointment with Dr. Albert malin. No other assessment changes noted from pre cath assessment.
[2022-04-10 09:00] VITALS: BP 100/74; PULSE 96; RESP 17; O2SAT 96
[2022-04-10 09:15] VITALS: BP 100/74; PULSE 105; RESP 20; O2SAT 96
== END 2022-04-10 09:29 | disposition home or self-care (01) ==
LOC: CCL 06:29 → MEDSURG 07:39 → CCL 08:45
PROVIDERS: PCP Family Medicine; Visit Provider Internal Medicine Cardiovascular Disease
DX: I48.92 Unspecified atrial flutter (principal); Z53.8 Procedure and treatment not carried out for other reasons; J44.9 Chronic obstructive pulmonary disease, unspecified; Z79.01 Long term (current) use of anticoagulants; E11.22 Type 2 diabetes mellitus with diabetic chronic kidney disease; I13.0 Hypertensive heart and chronic kidney disease with heart failure and stage 1 through stage 4 chronic kidney disease, or unspecified chronic kidney disease; N18.9 Chronic kidney disease, unspecified; I50.31 Acute diastolic (congestive) heart failure; N17.9 Acute kidney failure, unspecified; F17.210 Nicotine dependence, cigarettes, uncomplicated
CPT/HCPCS: 36415; 96360; 99152; 99153; C1769; C1894; J2250; J3010; J3370; J7030; J7050; Q9967

== ENCOUNTER → 2022-04-11 14:14 | Outpatient (BNVA) | payer MEDICARE, BC, SELFPAY | PROVIDERS: PCP Family Medicine; Visit Provider Thoracic Surgery (Cardiothoracic Vascular Surgery) | DX: I49.5 Sick sinus syndrome (principal); F17.200 Nicotine dependence, unspecified, uncomplicated | CPT/HCPCS: 99203; 99204 ==

== ENCOUNTER 2022-04-21 10:03 | Inpatient (IN) | payer MEDICARE, BC, SELFPAY ==
[2022-04-21] VITALS (12 sets, daily range): BP systolic 117–146; BP diastolic 55–78; PULSE 59–100; RESP 14–22; TEMP 37.1–37.6; O2SAT 92–99; BMI 35.0
--- NOTE | 2022-04-21 10:25 | ECG_ITS ---
[facility] Test Date: 2022-04-21 Pat Name: Rebeca Álvarez Department: Room: Gender: Female Investigation Specialist: : 1950 Requested By: Torres Dupont Order Number: [id number] Mohamud MD: Diandra Fall M.D. Measurements Intervals [place] Rate: 66 P: 2 MD: 199 QRS: 38 QRSD: 86 T: 52 QT: 416 QTc: 438 Interpretive Statements SINUS RHYTHM Compared to ECG 03/20/2022 18:26:04 Atrial fibrillation no longer present Ventricular premature complex(es) no longer present Aberrant conduction of supraventricular beat(s) no longer present ST (T wave) deviation no longer present Electronically Signed On 04-21-2022 11:47:49 CDT by Diandra Fall M.D. [id number]
--- NOTE | 2022-04-21 10:38 | PC.NURSE ---
pt is not currently taking antibiotics and has not been seen for respiratory infection
--- NOTE | 2022-04-21 10:41 | XR_ITS ---
WS: [id number] Portable AP upright chest, 04/21/2022 Clinical Data: cough, SOB, fever Comparison: Portable chest, 03/20/2022 Findings: The heart is enlarged and unchanged. The diaphragms are flattened. There is a patchy right lower lobe opacity which could represent atelectasis and/or pneumonia. No pneumothorax is seen. The a ortic arch and descending thoracic aorta show mild tortuosity and calcification. No nodules or masses are seen. There are surgical clips in the right axilla. Monitor leads are on the chest wall. XR/XR chest 1V portable [id number] Impression: 1. Patchy opacity in right lower lobe which could indicate atelectasis and/or p neumonia. 2. Cardiomegaly and atherosclerosis.
--- NOTE | 2022-04-21 10:43 | ED_ITS ---
Documented by User: Britt Lowery PA-C 04/21/22 13:33 HPI - SOB/Dyspnea General: Chief Complaint: Shortness of Breath/Dyspnea Stated Complaint: SOB and Afib Time Seen by Provider: 04/21/22 10:34 Source: patient and family Mode of arrival: wheelchair Limitations: no limitations History of Present Illness: HPI Narrative: 71-year-old female with a history of sick sinus syndrome, A. fib, COPD, CKD, CHF presents to the ER today for 3 days of worsening shortness of breath and cough. Patient reports her cough is productive at this time. Patient reports chills however has not checked her temperature at home. She reports chest pressure and pain at times that is not associated with her cough. Patient denies any radiating pain. Patient reports her heart rate at home got up into the 180s before dropping back to the 130s and then reports it got down to 40. In the ER today patient is at mid 60s low 70s. Patient reports she is on 3 L of oxygen at home and has maintained that over the last couple of days. Patient denies any sore throat or ear pain. Denies any other recent illnesses. Denies any recent sick contacts. Patient reports she is scheduled to have a pacemaker placed on Sunday. Due to this she has been off of her blood thinners for almost 1 week. Patient has not gone to the doctor for the increased cough and shortness of br eath at this time. Review of Systems General: Reports: 10 or more systems reviewed and unremarkable except in HPI and below PFSH ED PFSH: Medical History Abdominal pain Acute diastolic heart failure Acute kidney injury superimposed on CKD HERBER (acute kidney injury) Atrial fibrillation Atrial fibrillation with rapid ventricular response Atrial fibrillation with RVR Chronic anticoagulation Chronic kidney disease COPD (chronic obstructive pulmonary disease) Dehydration Fatigue Generalized weakness History of syncope HTN (hypertension) with goal to be determined Hypokalemia Right heart failure T2DM (type 2 diabetes mellitus) Volume overload Surgical History Hx of cholecystectomy Family History Mother , at age 62 Cancer Cervical Emphysema lung Father , at age 64 Black lung disease Social History Smoking and tobacco status: current every day smoker Alcohol intake: never Household members: spouse Marital status: / Current occupational status: retired History of recent travel: No Physical Exam Const: COMMON NORMALS: average body habitus, patient oriented x3, no l imitations, healthy appearing, alert and well nourished HENMT: COMMON NORMALS: normocephalic, atraumatic, Normal external nose present, Normal nasal mucous membranes and turbinates present and moist oral mucous membranes HEAD & SCALP: normocephalic and atraumatic NOSE: Normal external nose present and Normal nasal mucous membranes and turbinates present Eye: COMMON NORMALS: conjunctivae normal CONJUNCTIVA: Yes conjunctivae normal Lymph: LYMPHATIC: no lymphadenopathy noted Resp: COMMON NORMALS: normal respiratory effort and No retractions AUSCULTATION: wheezes expiratory wheezes and lower bilaterally Cardio: COMMON NORMALS: regular rate, regular rhythm and No murmurs present (Cardio) RATE: regular rate RHYTHM: regular rhythm GI: COMMON NORMALS: Normal to inspection, nondistended, normoactive bowel sounds present, Soft to palpation and non-tender PALPATION: Yes Soft to palpation Extremity: COMMON NORMALS: normal to inspection and full ROM Neuro: COMMON NORMALS: patient oriented x3 SENSORIUM/ORIENTATION: Yes alert Psych: COMMON NORMALS: mental status grossly normal, Normal thought process present and cooperative THOUGHT PROCESS: Normal thought process present Skin: COMMON NORMALS: no rashes or lesions noted and no wounds GENERAL SKIN EXAM: no rashes or lesions noted Course ED course: Patient has a significant past medical history. At this time her cough and chest congestion appears to be the primary complaint. Patient does report an episode of A. fib this morning however that has resolved at this time and patient is running in the 60-70 range. We will get a chest x-ray and lab w ork at this time. We will swab for COVID and flu. Patient had a temp at 99.6 in the ER. Reevaluation(s): Reevaluation #1: I spoke with Dr. Cabezas who recommends canceling procedure Sunday and admitting for treatment for pneumonia and afib/rate control. Time: 12:11 Reevaluation #2: Dr. Chavez accepts patient for admission at this time. Pt notified of recommended admission and verbalizes understanding. Time: 12:12 Reevaluation #3: Will start pt on Rocephin and Doxy for pneumonia treatment. Time: 12:16 Vital Signs: Vital signs: Vital Signs Temperature 99.4 F 04/21/22 10:25 Pulse Rate 73 04/21/22 13:30 Respiratory Rate 22 H 04/21/22 13:30 Blood Pressure 146/78 04/21/22 11:50 Pulse Oximetry 96 04/21/22 13:30 Oxygen Delivery Me thod 04/21/22 13:30 Oxygen Flow Rate 3 04/21/22 13:30 MDM - SOB/Dyspnea Medical Decision Making Patient is noted to have a probable early right lower lobe pneumonia. Patient is also going in and out of A. fib with RVR while in the ER today. Patient had slightly bumped troponin likely due to patient's A. fib. I did discuss this patient with Dr. Cabezas who was set to do her surgery on Sunday. He would like to hold off on the surgery admit patient for pneumonia treatment and rate control. Patient was accepted by . Patient will be started on Rocephin and doxycycline at this time. Patient was also discussed with both Dr. Chairez and Dr. Hensley who agreed with treatment plan. Lab Data : 04/21/22 10:35 04/21/22 10:35 Labs/Radiology: Radiology Impressions Chest X-Ray 04/21/22 10:41 Impression: 1. Patchy opacity in right lower lobe which could indicate atelectasis and/or pneumonia. 2. Cardiomegaly and atherosclerosis. Laboratory Results WBC 8.8 10^3/uL (4.0-10.0) 04/21/22 10:35 RBC 4.07 10^6/uL (4.1-5.3) L 04/21/22 10:35 Hgb 12.2 g/dL (11.5-15.3) 04/21/22 10:35 Hct 39.4 % (37.0-47.0) 04/21/22 10:35 MCV 96.8 fl (81-99) 04/21/22 10:35 MCH 30.0 pg (28.0-34.0) 04/21/22 10:35 MCHC 31.0 g/dL (30.0-36.0) 04/21/22 10:35 RDW 13.2 % (12.1-15.1) 04/21/22 10:35 Plt Count 499 10^3/cmm (130-400) H 04/21/22 10:35 MPV 9.4 fL (7.4-10.4) 04/21/22 10:35 Neut % (Auto) 68.2 % 04/21/22 10:35 Lymph % (Auto) 17.6 % 04/21/22 10:35 Sawyer % (Auto) 10.5 % 04/21/22 10:35 Eos % (Auto) 2.8 % 04/21/22 10:35 Baso % (Auto) 0.6 % 04/21/22 10:35 Neut # (Auto) 6.00 10^3/uL (1.8-7.7) 04/21/22 10:35 Lymph # (Auto) 1.6 10^3/uL (0.8-4.8) 04/21/22 10:35 Sawyer # (Auto) 0.9 10^3/uL (0.2-0.9) 04/21/22 10:35 Eos # (Auto) 0.3 10^3/uL (0.0-0.8) 04/21/22 10:35 Baso # (Auto) 0.1 10^3/uL (0.0-0.1) 04/21/22 10:35 Nucleated RBC % (auto) 0 % 04/21/22 10:35 Nucleated RBCs # 0.0 /100WBC 04/21/22 10:35 Sodium 139 mmol/L (136-145) 04/21/22 10:35 Potassium 3.7 mmol/L (3.5-5.1) 04/21/22 10:35 Chloride 101 mmol/L (98-107) 04/21/22 10:35 Carbon Dioxide 27 mmol/L (22-29) 04/21/22 10:35 Anion Gap 14.7 (5-19) 04/21/22 10:35 BUN 8 mg/dL (8-23) 04/21/22 10:35 Creatinine 0.9 mg/dL (0.5-0.9) 04/21/22 10:35 GFR Calculation Not Reportable 04/21/22 10:35 Glucose 141 mg/dL (65-115) H 04/21/22 10:35 Calculated Osmolality 289 mOsm/kg (285-295) 04/21/22 10:35 Calcium 9.7 mg/dL (8.5-10.5) 04/21/22 10:35 Total Bilirubin 0.3 mg/dL (0.15-1.2) 04/21/22 10:35 AST 19 U/L (0-32) 04/21/22 10:35 ALT < 5 U/L (0-33) 04/21/22 10:35 Alkaline Phosphatase 115 U/L (35-105) H 04/21/22 10:35 Troponin T Gen 5 ng/L 40 ng/L (0-10) H 04/21/22 10:35 Troponin T 120 Minute 33.36 ng/L (0-10) H 04/21/22 13:05 NT-Pro-B Natriuret Pep 686 pg/mL (0-125) H 04/21/22 10:35 Total Protein 6.3 g/dL (6.6-8.7) L 04/21/22 10:35 Albumin 3.2 g/dL (3.5-5.2) L 04/21/22 10:35 Globulin 3.1 g/dL (1.3-4.6) 04/21/22 10:35 Influenza Type A Ag negative (Negative) 04/21/22 10:45 Influenza Type B Ag negative (Negative) 04/21/22 10:45 SARS-CoV-2 Ag (Rapid) negative (Negative) 04/21/22 10:45 Critical Care Time Critical Care Time: Critical Care Time: No Discharge Plan Discharge Patient Disposition: Admitted As Inpatient Clinical Impression: Pneumonia Qualifiers: Pneumonia type: due to unspecified organism Laterality: right Lung location: lower lobe of lung Qualified Code(s): J18.9 - Pneumonia, unspecified organism Atrial fibrillation Qualifiers: Atrial fibrillation type: unspecified Qualified Code(s): I48.91 - Unspecified atrial fibrillation Condition: Stable Discharge Diet: Usual diet Coding Level of Care Code ED Clinical Lab Assistant for Chg Fwd Exam Comprehensive Documented by User: Torres Chairez DO 04/21/22 13:49 HPI - SOB/Dyspnea General: Chief Complaint: Shortness of Breath/Dyspnea Stated Complaint: SOB and Afib Time Seen by Provider: 04/21/22 10:34 PFSH ED PFSH: Medical History Abdominal pain Acute diastolic heart failure Acute kidney injury superimposed on CKD HERBER (acute kidney injury) Atrial fibrillation Atrial fibrillation with rapid ventricular response Atrial fibrillation with RVR Chronic anticoagulation Chronic kidney disease COPD (chronic obstructive pulmonary disease) Dehydration Fatigue Generalized weakness History of syncope HTN (hypertension) with goal to be determined Hypokalemia Right heart failure T2DM (type 2 diabetes mellitus) Volume overload Surgical History Hx of cholecystectomy Family History Mother , at age 62 Cancer Cervical Emphysema lung Father , at age 64 Black lung disease Social History Smoking and tobacco status: current every day smoker Alcohol intake: never Household members: spouse Marital status: / Current occupational status: retired History of recent travel: No Course Vital Signs: Vital signs: Vital Signs Temperature 99.4 F 04/21/22 10:25 Pulse Rate 73 04/21/22 13:30 Respiratory Rate 22 H 04/21/22 13:30 Blood Pressure 146/78 04/21/22 11:50 Pulse Oximetry 96 04/21/22 13:30 Oxygen Delivery Me thod 04/21/22 13:30 Oxygen Flow Rate 3 04/21/22 13:30 MDM - SOB/Dyspnea Medical Decision Making Patient is noted to have a probable early right lower lobe pneumonia. Patient is also going in and out of A. fib with RVR while in the ER today. Patient had slightly bumped troponin likely due to patient's A. fib. I did discuss this patient with Dr. Cabezas who was set to do her surgery on Sunday. He would like to hold off on the surgery admit patient for pneumonia treatment and rate control. Patient was accepted by . Patient will be started on Rocephin and doxycycline at this time. Patient was also discussed with both Dr. Chairez and Dr. Hensley who agreed with treatment plan. Chart reviewed and patient discussed with midlevel. Agree with assessment and plan. Lab Data : 04/21/22 10:35 04/21/22 10:35 Labs/Radiology: Radiology Impressions Chest X-Ray 04/21/22 10:41 Impression: 1. Patchy opacity in right lower lobe which could indicate atelectasis and/or pneumonia. 2. Cardiomegaly and atherosclerosis. Laboratory Results WBC 8.8 10^3/uL (4.0-10.0) 04/21/22 10:35 RBC 4.07 10^6/uL (4.1-5.3) L 04/21/22 10:35 Hgb 12.2 g/dL (11.5-15.3) 04/21/22 10:35 Hct 39.4 % (37.0-47.0) 04/21/22 10:35 MCV 96.8 fl (81-99) 04/21/22 10:35 MCH 30.0 pg (28.0-34.0) 04/21/22 10:35 MCHC 31.0 g/dL (30.0-36.0) 04/21/22 10:35 RDW 13.2 % (12.1-15.1) 04/21/22 10:35 Plt Count 499 10^3/cmm (130-400) H 04/21/22 10:35 MPV 9.4 fL (7.4-10.4) 04/21/22 10:35 Neut % (Auto) 68.2 % 04/21/22 10:35 Lymph % (Auto) 17.6 % 04/21/22 10:35 Sawyer % (Auto) 10.5 % 04/21/22 10:35 Eos % (Auto) 2.8 % 04/21/22 10:35 Baso % (Auto) 0.6 % 04/21/22 10:35 Neut # (Auto) 6.00 10^3/uL (1.8-7.7) 04/21/22 10:35 Lymph # (Auto) 1.6 10^3/uL (0.8-4.8) 04/21/22 10:35 Sawyer # (Auto) 0.9 10^3/uL (0.2-0.9) 04/21/22 10:35 Eos # (Auto) 0.3 10^3/uL (0.0-0.8) 04/21/22 10:35 Baso # (Auto) 0.1 10^3/uL (0.0-0.1) 04/21/22 10:35 Nucleated RBC % (auto) 0 % 04/21/22 10:35 Nucleated RBCs # 0.0 /100WBC 04/21/22 10:35 Sodium 139 mmol/L (136-145) 04/21/22 10:35 Potassium 3.7 mmol/L (3.5-5.1) 04/21/22 10:35 Chloride 101 mmol/L (98-107) 04/21/22 10:35 Carbon Dioxide 27 mmol/L (22-29) 04/21/22 10:35 Anion Gap 14.7 (5-19) 04/21/22 10:35 BUN 8 mg/dL (8-23) 04/21/22 10:35 Creatinine 0.9 mg/dL (0.5-0.9) 04/21/22 10:35 GFR Calculation Not Reportable 04/21/22 10:35 Glucose 141 mg/dL (65-115) H 04/21/22 10:35 Calculated Osmolality 289 mOsm/kg (285-295) 04/21/22 10:35 Calcium 9.7 mg/dL (8.5-10.5) 04/21/22 10:35 Total Bilirubin 0.3 mg/dL (0.15-1.2) 04/21/22 10:35 AST 19 U/L (0-32) 04/21/22 10:35 ALT < 5 U/L (0-33) 04/21/22 10:35 Alkaline Phosphatase 115 U/L (35-105) H 04/21/22 10:35 Troponin T Gen 5 ng/L 40 ng/L (0-10) H 04/21/22 10:35 Troponin T 120 Minute 33.36 ng/L (0-10) H 04/21/22 13:05 NT-Pro-B Natriuret Pep 686 pg/mL (0-125) H 04/21/22 10:35 Total Protein 6.3 g/dL (6.6-8.7) L 04/21/22 10:35 Albumin 3.2 g/dL (3.5-5.2) L 04/21/22 10:35 Globulin 3.1 g/dL (1.3-4.6) 04/21/22 10:35 Influenza Type A Ag negative (Negative) 04/21/22 10:45 Influenza Type B Ag negative (Negative) 04/21/22 10:45 SARS-CoV-2 Ag (Rapid) negative (Negative) 04/21/22 10:45 Discharge Plan Discharge Patient Disposition: Admitted As Inpatient Clinical Impression: Pneumonia Qualifiers: Pneumonia type: due to unspecified organism Laterality: right Lung location: lower lobe of lung Qualified Code(s): J18.9 - Pneumonia, unspecified organism Atrial fibrillation Qualifiers: Atrial fibrillation type: unspecified Qualified Code(s): I48.91 - Unspecified atrial fibrillation Condition: Stable Discharge Diet: Usual diet Coding Level of Care Code ED Clinical Lab Assistant for Kraigg Fwd Exam Comprehensive
[2022-04-21 11:03] LABS: Basophils # 0.1 10^3/uL (0.0-0.1); Basophils % 0.6 %; Eosinophils # 0.3 10^3/uL (0.0-0.8); Eosinophils % 2.8 %; Hematocrit 39.4 % (37.0-47.0); Hemoglobin 12.2 g/dL (11.5-15.3); Lymphocytes # 1.6 10^3/uL (0.8-4.8); Lymphocytes % 17.6 %; Mean Corpuscular Volume 96.8 fl (81-99); Mean Platelet Volume 9.4 fL (7.4-10.4); Monocytes # 0.9 10^3/uL (0.2-0.9); Monocytes % 10.5 %; Neutrophils % 68.2 %; Nucleated Red Blood Cells % 0 %; Platelet Count 499 10^3/cmm (130-400); Red Blood Count 4.07 10^6/uL (4.1-5.3); Red Cell Distribution Width 13.2 % (12.1-15.1); White Blood Count 8.8 10^3/uL (4.0-10.0)
[2022-04-21 11:18] LABS: Troponin T (5th) Once 40 ng/L (0-10)
[2022-04-21 11:18] LABS: SARS Covid-2 Antigen negative (Negative)
[2022-04-21 11:19] LABS: Influenza A by IFA negative (Negative); Influenza B by IFA negative (Negative)
[2022-04-21 11:25] LABS: Alanine Aminotransferase < 5 U/L (0-33); Albumin Level 3.2 g/dL (3.5-5.2); Alkaline Phosphatase 115 U/L (35-105); Anion Gap 14.7 (5-19); Aspartate Amino Transferase 19 U/L (0-32); Blood Urea Nitrogen 8 mg/dL (8-23); Calcium 9.7 mg/dL (8.5-10.5); Carbon Dioxide 27 mmol/L (22-29); Chloride 101 mmol/L (98-107); Globulin 3.1 g/dL (1.3-4.6); Glucose 141 mg/dL (65-115); Osmolality Calculated 289 mOsm/kg (285-295); Potassium 3.7 mmol/L (3.5-5.1); Sodium 139 mmol/L (136-145); Total Bilirubin 0.3 mg/dL (0.15-1.2); Total Protein 6.3 g/dL (6.6-8.7)
[2022-04-21] MEDS: ondansetron 2 mg/ML SDV 2 mL 4 MG IVP (11:56)
--- NOTE | 2022-04-21 12:25 | ECG_ITS ---
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 Measurements Intervals [place] Rate: 62 P: -65 [place]: 219 QRS: 42 QRSD: 85 T: 57 QT: 438 QTc: 447 Interpretive Statements SINUS RHYTHM WITH FIRST DEGREE AV BLOCK NONSPECIFIC T-WAVE ABNORMALITY Compared to ECG 04/21/2022 10:28:30 First degree AV block now present T-wave abnormality now present Electronically Signed On 04-21-2022 17:58:45 CDT by Diandra Fall M.D. [id number]
[2022-04-21] MEDS: cefTRIAXone 1,000 MG in sodium chloride 0.9% (plus) 50 ML 100 MG IV (12:35)
[2022-04-21 13:07] LABS: NT Pro B Type Natriuretic Pept 686 pg/mL (0-125)
[2022-04-21] MEDS: doxycycline 100 MG in sodium chloride 0.9% (plus) 100 ML IV (13:28)
[2022-04-21 13:34] LABS: Troponin 5 2HR 33.36 ng/L (0-10)
--- NOTE | 2022-04-21 14:21 | PC.NURSE ---
pt took 30 mg cardizem po from her personal medication at 1345 okayed by provider
--- NOTE | 2022-04-21 15:08 | P.HP_ITS ---
Providers/Chief Complaint Admitting Physician: Shayy Chavez MD Primary Care Provider: Ava Fernandez DO Chief Complaint: SOB and Afib History of Present Illness Rebeca Álvarez is a 71 year old female who was scheduled for permanent pacemaker placement with Dr. Price on Sunday presented to the hospital for worsening of productive cough and shortness of breath. Patient does use 3 L of oxygen at baseline, for last 1 week she has been experiencing gradual worsening of shortness of breath along with productive cough. Patient is stating that she takes metoprolol Cardizem and dofetilide to keep her heart rate controlled and sometimes takes as needed Cardizem as well. She decided to come to the hospital for worsening of her symptoms, she has been diagnosed with right-sided pneumonia I will start her on ceftriaxone and azithromycin, patient wants to get pacemaker placed during this visit, In the ER she received ceftriaxone and doxycycline. Review of Systems Const: Denies: fever(s) Eyes: Denies: change in vision ENMT: Denies: throat pain Card: Reports: chest pain Resp: Reports: dyspnea and productive cough GI: Reports: early satiety : Denies: flank pain Musc: Denies: neck pain Skin/Breast: Denies: rash Neuro: Denies: headache(s) Psych: Reports: anxiety Endo: Denies: polyuria Mahesh/Lymph: Denies: easy bruising All/Imm: Denies: urticaria Medications/Allergies Home Medications Medication Instructions Recorded Confirmed Last Taken Type alprazolam 1 mg tablet 0.5 mg PO BID 14 days #14 tabs 01/25/22 04/21/22 04/09/22 21:00 Rx lactulose 10 gram/15 mL oral 10 g (15 mL) PO DAILY PRN 01/25/22 04/21/22 Unknown Rx solution constipation #237 mL pantoprazole 40 mg tablet,delayed 40 mg PO DAILY #14 tabs 01/25/22 04/21/22 04/09/22 10:00 Rx release rosuvastatin 20 mg tablet 20 mg PO DAILY 30 days #30 tabs 01/25/22 04/21/22 04/09/22 10:00 Rx sennosides 8.6 mg-docusate sodium 1 tab PO BID #60 tabs 01/25/22 04/21/22 04/09/22 21:00 Rx 50 mg tablet (Stool Softener-Laxative) albuterol sulfate 2.5 mg/3 mL 2.5 mg inhalation Q4H PRN 01/29/22 04/21/22 Unknown History (0.083 %) solution for nebulization Shortness Of Breath albuterol sulfate 90 mcg/actuation 1 puff inhalation QID PRN 01/29/22 04/21/22 Unknown History aerosol inhaler Shortness Of Breath diltiazem HCl 240 mg 240 mg PO DAILY #90 tabs 01/31/22 04/21/22 04/21/22 Rx tablet,extended release 24 hr (Cardizem LA) furosemide 40 mg tablet (Lasix) 40 mg PO BID 30 days #60 tabs 02/03/22 04/21/22 04/09/22 17:00 Rx magnesium L-lactate 84 mg 84 mg PO BID #180 tabs 03/09/22 04/21/22 04/09/22 21:00 Rx tablet,extended release (Magtab) metoprolol tartrate 25 mg tablet 12.5 mg PO BID #90 tabs 03/09/22 04/21/22 04/21/22 Rx dofetilide 125 mcg capsule 250 mcg PO BID 30 days #120 caps 03/13/22 04/21/22 04/21/22 Rx potassium chloride 20 mEq 40 meq PO DAILY 03/13/22 04/21/22 04/09/22 10:00 History tablet,extended release prednisone 10 mg tablet 10 mg PO DAILY 03/13/22 04/21/22 04/21/22 History promethazine 6.25 mg/5 mL oral 6.25 mg PO QID PRN Cough 03/13/22 04/21/22 Unknown History syrup umeclidinium 62.5 mcg-vilanterol 1 inh inhalation BID 03/13/22 04/21/22 04/21/22 History 25 mcg/actuation powdr for inhalation (Anoro Ellipta) cholecalciferol (vitamin D3) 25 25 mcg PO DAILY 03/20/22 04/21/22 04/21/22 History mcg (1,000 unit) tablet (Vitamin D3) diltiazem HCl 30 mg tablet 30 mg PO Q8H PRN Blood Pressure 03/20/22 04/21/22 04/09/22 10:00 History guaifenesin 400 mg tablet 400 mg PO TID PRN Congestion 03/20/22 04/21/22 Unknown History montelukast 10 mg tablet 10 mg PO BEDTIME #30 tabs 03/21/22 04/21/22 04/20/22 Rx rivaroxaban 15 mg tablet (Xarelto) 15 mg PO DAILY #30 tabs 03/21/22 04/21/22 04/21/22 Rx hydrocodone 10 mg-acetaminophen 1 tab PO Q8H PRN Pain 30 days #90 03/22/22 04/21/22 04/09/22 21:00 Rx 325 mg tablet tabs zolpidem 10 mg tablet 10 mg PO BEDTIME #30 tabs 04/20/22 04/21/22 04/20/22 Rx Allergies Allergy/AdvReac Type Severity Reaction Status Date / Time morphine Allergy Unknown Verified 04/21/22 11:03 Penicillins Allergy Unknown Verified 04/21/22 11:03 PFSH Acute PFSH: Medical History (Updated 04/21/22 @ 17:23 by Shayy Chavez MD) Abdominal pain Acute diastolic heart failure Acute kidney injury superimposed on CKD HERBER (acute kidney injury) Atrial fibrillation Atrial fibrillation with rapid ventricular response Atrial fibrillation with RVR Chronic anticoagulation Chronic kidney disease COPD (chronic obstructive pulmonary disease) Dehydration Fatigue Generalized weakness History of breast cancer History of syncope HTN (hypertension) with goal to be determined Hypokalemia Right heart failure T2DM (type 2 diabetes mellitus) Volume overload Surgical History (Updated 04/21/22 @ 17:23 by Shayy Chavez MD) History of knee replacement History of radical hysterectomy Hx of cholecystectomy Family History Mother , at age 62 Cancer Cervical Emphysema lung Father , at age 64 Black lung disease Social History Smoking and tobacco status: current every day smoker Alcohol intake: never Household members: spouse Marital status: / Current occupational status: retired History of recent travel: No Vitals/I&O/Wt Last Vital Signs Temp 99.4 F 04/21/22 10:25 Pulse 64 04/21/22 14:00 Resp 18 04/21/22 14:00 BP 117/55 04/21/22 14:00 Pulse Ox 96 04/21/22 14:00 O2 Del Method 04/21/22 14:00 O2 Flow Rate 3 04/21/22 14:00 04/21/22 04/21/22 04/21/22 06:59 14:59 22:59 Intake Total 50 / 50 Balance 50 / 50 Physical Exam Narrative: Patient is currently on 3 L Comfortable No conversational dyspnea at the bedside Nonfocal neuro exam S1, S2 variable A. fib without RVR Euvolemic Clinically noted Appropriate mood and affect Data : 04/21/22 10:35 04/21/22 10:35 A&P Assessment and plan (1) Pneumonia: Qualifiers: Laterality: right Lung location: lower lobe of lung Pneumonia type: due to unspecified organism Qualified Code(s): J18.9 - Pneumonia, unspecified organism (2) Sinus node dysfunction: (3) Chronic anticoagulation: (4) COPD (chronic obstructive pulmonary disease): Qualifiers: COPD type: emphysema Emphysema type: panlobular Qualified Code(s): J43.1 - Panlobular emphysema Plan Community-acquired pneumonia Patient oxygen requirement has not worsened No leukocytosis or sepsis I will start her on ceftriaxone and azithromycin DuoNeb every 4 as needed We will give her low-dose steroid Sick sinus syndrome Patient was scheduled for permanent pacemaker placement on Sunday by Dr. Price Currently inform Dr. Velazco on Sunday if she stays until then She prefers to get it done during this hospitalization Congestive heart failure without acute exacerbation Currently she looks euvolemic I will hold her Lasix and potassium supplementation for now A. 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
[2022-04-21 17:19] LABS: Troponin 5 6HR Delta -2.2 ng/L (0-12)
[2022-04-21 17:27] LABS: Glucose Point of Care 214 mg/dL (70-110)
[2022-04-21] MEDS: insulin lispro 100 unit/1 mL SUBCUT (18:21)
[2022-04-21] MEDS: nystatin powder 15 gm Btl 1 APPLIC TOPICAL (18:22)
[2022-04-21] MEDS: HYDROcodone-acetaminophen 10-325 mg Tablet 1 TAB PO (19:39)
[2022-04-21] MEDS: ipratropium-albuterol 3 mL Neb INHALATION (20:02)
[2022-04-21 20:32] LABS: Estmated Average Glucose 123; Hemoglobin A1C 5.9 % (4.0-6.0)
[2022-04-21 21:25] LABS: Glucose Point of Care 141 mg/dL (70-110)
[2022-04-21] MEDS: zolpidem 5 mg Tablet 10 MG PO (21:58)
[2022-04-22] VITALS (10 sets, daily range): BP systolic 118–124; BP diastolic 62–76; PULSE 53–85; RESP 16–18; TEMP 36.7–36.8; O2SAT 95–98
[2022-04-22 04:44] LABS: Basophils # 0.1 10^3/uL (0.0-0.1); Basophils % 0.7 %; Eosinophils # 0.3 10^3/uL (0.0-0.8); Eosinophils % 3.4 %; Hematocrit 34.4 % (37.0-47.0); Hemoglobin 10.3 g/dL (11.5-15.3); Lymphocytes # 2.3 10^3/uL (0.8-4.8); Lymphocytes % 30.5 %; Mean Corpuscular HGB Conc 29.9 g/dL (30.0-36.0); Mean Corpuscular Hemoglobin 30.2 pg (28.0-34.0); Mean Corpuscular Volume 100.9 fl (81-99); Mean Platelet Volume 9.7 fL (7.4-10.4); Monocytes % 12.8 %; Neutrophils # 4.01 10^3/uL (1.8-7.7); Neutrophils % 52.2 %; Nucleated Red Blood Cells % 0 %; Platelet Count 378 10^3/cmm (130-400); Red Blood Count 3.41 10^6/uL (4.1-5.3); Red Cell Distribution Width 13.5 % (12.1-15.1); White Blood Count 7.7 10^3/uL (4.0-10.0)
[2022-04-22 05:10] LABS: Blood Urea Nitrogen 10 mg/dL (8-23); C Reactive Protein 19.6 mg/L (0.0-4.9); Calcium 9.3 mg/dL (8.5-10.5); Carbon Dioxide 27 mmol/L (22-29); Chloride 102 mmol/L (98-107); Glucose 125 mg/dL (65-115); Magnesium 1.5 mg/dL (1.7-2.3); Osmolality Calculated 285 mOsm/kg (285-295); Sodium 137 mmol/L (136-145)
[2022-04-22 05:12] LABS: Anion Gap 11.5 (5-19); Potassium 3.5 mmol/L (3.5-5.1)
[2022-04-22 06:49] LABS: Glucose Point of Care 146 mg/dL (70-110)
[2022-04-22] MEDS: dilTIAZem ER (24HR) 240 mg Capsule PO (08:08)
[2022-04-22] MEDS: cefTRIAXone 1,000 MG in sodium chloride 0.9% (plus) 50 ML 100 MG IV (08:08)
[2022-04-22] MEDS: metoprolol tartrate 25 mg Tablet 12.5 MG PO ×2 (08:09→17:46)
[2022-04-22] MEDS: pantoprazole DR 40 mg Tablet PO (08:09)
[2022-04-22] MEDS: azithromycin 250 mg Tablet 500 MG PO (08:09)
[2022-04-22] MEDS: sennosides-docusate Tablet 1 TAB PO (08:09)
[2022-04-22] MEDS: predniSONE 10 mg Tablet PO (08:09)
[2022-04-22] MEDS: insulin lispro 100 unit/1 mL SUBCUT ×3 (08:09→17:45)
[2022-04-22 11:09] LABS: Glucose Point of Care 187 mg/dL (70-110)
--- NOTE | 2022-04-22 14:19 | PM.PN ---
Subjective Subjective: Patient was seen and examined this morning, continues to complain of shortness of breath generalized weakness fatigue. Medications: Medication Review Details: Generic Name Dose Route Start Last Admin Trade Name Stephanie PRN Reason Stop Dose Admin Hydrocodone Bitart /Acetaminophen 1 tab 04/21/22 16:08 04/21/22 19:39 Hydrocodone-Acet aminophen 10-325 M g Tablet PO 1 tab Q8H PRN Administration Pain Albuterol/Ipratrop ium 3 ml 04/21/22 16:05 04/21/22 20:02 Ipratropium-Albu terol 3 Ml Neb INHALATION 3 ml Q6H PRN Administration SHORTNESS OF EDWIN TH Azithromycin 500 mg 04/22/22 09:00 04/22/22 08:09 Azithromycin 250 Mg Tablet PO 500 mg DAILY [facility] Administration Protocol Diltiazem HCl 240 mg 04/22/22 09:00 04/22/22 08:08 Diltiazem Er (24 hr) 240 Mg Capsule PO 240 mg DAILY JONATAN Administration Enoxaparin Sodium 40 mg 04/21/22 16:15 04/21/22 18:27 Enoxaparin 40 Mg /0.4 Ml Syringe SUBCUT Not Given Q24H JONATAN Ceftriaxone Sodium 1,000 mg/ 50 mls @ 100 mls/ hr 04/22/22 09:00 04/22/22 09:31 Sodium Chloride IV Infused DAILY [facility] Infusion Protocol Insulin Human Lisp ro 0 unit 04/21/22 18:00 04/22/22 11:47 Insulin Lispro 1 00 Unit/1 Ml SUBCUT 4 unit TIDWM [facility] Administration Protocol Metoprolol Tartrat e 12.5 mg 04/21/22 18:00 04/22/22 08:09 Metoprolol Tartr ate 25 Mg Tablet PO 12.5 mg BID JONATAN Administration Non-Formulary Medi cation 250 mcg 04/21/22 18:00 04/22/22 08:25 Dofetilide PO 250 mcg BID JONATAN Administration Nystatin 1 applic 04/21/22 18:00 04/22/22 11:30 Nystatin Powder 15 Gm Btl TOPICAL Not Given BID JONATAN Pantoprazole Sodiu m 40 mg 04/22/22 09:00 04/22/22 08:[address] 40 Mg Tablet PO 40 mg DAILY JONATAN Administration Prednisone 10 mg 04/22/22 09:00 04/22/22 08:09 Prednisone 10 Mg Tablet PO 10 mg DAILY JONATAN Administration Senna/Docusate Sod ium 1 tab 04/22/22 09:00 04/22/22 08:09 Sennosides-Docus ate Tablet PO 1 tab DAILY JONATAN Administration Zolpidem Tartrate 10 mg 04/21/22 21:00 04/21/22 21:58 Zolpidem 5 Mg Ta blet PO 10 mg BEDTIME OJNATAN Administration Vitals/I&O/Wt Last Vital Signs Temp 98.2 F 04/22/22 11:32 Pulse 84 04/22/22 11:32 Resp 17 04/22/22 11:32 BP 121/64 04/22/22 11:32 Pulse Ox 98 04/22/22 11:32 O2 Del Method 04/22/22 11:32 O2 Flow Rate 3 04/22/22 08:00 04/21/22 04/22/22 04/22/22 22:59 06:59 14:59 Intake Total 340 / 390 360 / 750 650 / 650 Balance 340 / 390 360 / 750 650 / 650 Weight last 48 hrs Weight 98.43 kg Physical Exam Const: COMMON NORMALS: patient oriented x3 Resp: COMMON NORMALS: clear to auscultation bilaterally AUSCULTATION: clear to auscultation bilaterally Cardio: COMMON NORMALS: regular rate, regular rhythm, S1 normal heart sound present, S2 normal heart sound present, No gallops present (Cardio), No murmurs present (Cardio), No rub (Cardio) and Peripheral pulses 2+ throughout RATE: regular rate RHYTHM: regular rhythm HEART SOUNDS: S1 normal heart sound present and S2 normal heart sound present PERIPHERAL PULSES: Peripheral pulses 2+ throughout GI: COMMON NORMALS: Normal to inspection, nondistended, normoactive bowel sounds present, Soft to palpation, non-tender, No hepatosplenomegaly present and no masses AUSCULTATION: Yes normoactive bowel sounds PALPATION: Yes Soft to palpation and Yes No hepatosplenomegaly present RECTAL EXAM: deferred Extremity: COMMON NORMALS: no clubbing, cyanosis or edema and no pedal edema Neuro: COMMON NORMALS: patient oriented x3 Data : 04/22/22 03:31 04/22/22 03:31 A&P Assessment and plan (1) Pneumonia: Qualifiers: Laterality: right Lung location: lower lobe of lung Pneumonia type: due to unspecified organism Qualified Code(s): J18.9 - Pneumonia, unspecified organism (2) Sinus node dysfunction: (3) Chronic anticoagulation: (4) COPD (chronic obstructive pulmonary disease): Qualifiers: COPD type: emphysema Emphysema type: panlobular Qualified Code(s): J43.1 - Panlobular emphysema Plan Community-acquired pneumonia Patient oxygen requirement has not worsened No leukocytosis or sepsis I will start her on ceftriaxone and azithromycin DuoNeb every 4 as needed We will give her low-dose steroid Sick sinus syndrome Patient was scheduled for permanent pacemaker placement on Sunday by Dr. Price Currently inform Dr. Price on Sunday if she stays until then She prefers to get it done during this hospitalization Congestive heart failure without acute exacerbation Currently she looks euvolemic I will hold her Lasix and potassium supplementation for now A. fib without RVR Continue dofetilide metoprolol and Cardizem Her Xarelto has been on hold in anticipation of pacemaker placement Cardiac diet Full code DVT prophylaxis with Lovenox for now Attestations Medical Necessity Statement*: Continues to be in hospital management of pneumonia need for IV antibiotic. 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
[2022-04-22] MEDS: dilTIAZem 30 mg Tablet PO (15:09)
[2022-04-22] MEDS: HYDROcodone-acetaminophen 10-325 mg Tablet 1 TAB PO (16:31)
[2022-04-22 17:08] LABS: Glucose Point of Care 161 mg/dL (70-110)
[2022-04-22] MEDS: nystatin powder 15 gm Btl 1 APPLIC TOPICAL (17:47)
[2022-04-22] MEDS: zolpidem 5 mg Tablet 10 MG PO (20:38)
[2022-04-22 21:10] LABS: Glucose Point of Care 142 mg/dL (70-110)
[2022-04-23] VITALS (12 sets, daily range): BP systolic 100–135; BP diastolic 60–75; PULSE 50–87; RESP 15–18; TEMP 36.6–36.9; O2SAT 94–98
[2022-04-23] MEDS: ondansetron 2 mg/ML SDV 2 mL 4 MG IVP (00:02)
[2022-04-23 06:36] LABS: Glucose Point of Care 125 mg/dL (70-110)
[2022-04-23] MEDS: pantoprazole DR 40 mg Tablet PO (08:36)
[2022-04-23] MEDS: metoprolol tartrate 25 mg Tablet 12.5 MG PO ×2 (08:36→17:21)
[2022-04-23] MEDS: predniSONE 10 mg Tablet PO (08:36)
[2022-04-23] MEDS: azithromycin 250 mg Tablet 500 MG PO (08:36)
[2022-04-23] MEDS: cefTRIAXone 1,000 MG in sodium chloride 0.9% (plus) 50 ML 100 MG IV (08:37)
[2022-04-23] MEDS: dilTIAZem ER (24HR) 240 mg Capsule PO (09:00)
[2022-04-23] MEDS: nystatin powder 15 gm Btl 1 APPLIC TOPICAL ×2 (09:00→17:19)
[2022-04-23] MEDS: sennosides-docusate Tablet 1 TAB PO (09:00)
[2022-04-23 11:50] LABS: Glucose Point of Care 187 mg/dL (70-110)
[2022-04-23] MEDS: levalbuterol 0.63 mg/3 mL Neb INHALATION ×2 (13:04→21:02)
[2022-04-23] MEDS: ipratropium 0.5 mg/2.5 mL Neb INHALATION ×2 (13:04→21:02)
[2022-04-23] MEDS: FUROsemide 10 mg/mL SDV 4mL 40 MG IVP (13:16)
[2022-04-23] MEDS: insulin lispro 100 unit/1 mL SUBCUT ×2 (13:17→17:23)
[2022-04-23 13:30] LABS: Basophils # 0.1 10^3/uL (0.0-0.1); Basophils % 0.6 %; Eosinophils # 0.1 10^3/uL (0.0-0.8); Eosinophils % 1.4 %; Hematocrit 34.9 % (37.0-47.0); Hemoglobin 10.8 g/dL (11.5-15.3); Lymphocytes # 1.3 10^3/uL (0.8-4.8); Lymphocytes % 15.3 %; Mean Corpuscular HGB Conc 30.9 g/dL (30.0-36.0); Mean Corpuscular Volume 96.9 fl (81-99); Mean Platelet Volume 9.8 fL (7.4-10.4); Monocytes # 0.5 10^3/uL (0.2-0.9); Monocytes % 5.4 %; Neutrophils # 6.53 10^3/uL (1.8-7.7); Neutrophils % 76.8 %; Nucleated Red Blood Cells % 0 %; Platelet Count 460 10^3/cmm (130-400); Red Cell Distribution Width 13.5 % (12.1-15.1); White Blood Count 8.5 10^3/uL (4.0-10.0)
[2022-04-23] MEDS: HYDROcodone-acetaminophen 10-325 mg Tablet 1 TAB PO ×2 (13:42→23:52)
[2022-04-23 13:48] LABS: Anion Gap 12.9 (5-19); Blood Urea Nitrogen 13 mg/dL (8-23); Calcium 9.3 mg/dL (8.5-10.5); Carbon Dioxide 29 mmol/L (22-29); Chloride 102 mmol/L (98-107); Glucose 156 mg/dL (65-115); Osmolality Calculated 293 mOsm/kg (285-295); Potassium 3.9 mmol/L (3.5-5.1); Sodium 140 mmol/L (136-145)
--- NOTE | 2022-04-23 16:28 | P.PN_ITS ---
Subjective Subjective: Patient was seen and examined this morning, continues to be weak, went into A. fib with heart rate in 110s responded to extra dose of Cardizem 30 p.o. this morning she was in sinus rhythm with heart rate in upper 50s. Medications: Medication Review Details: Generic Name Dose Route Start Last Admin Trade Name Freq PRN Reason Stop Dose Admin Hydrocodone Bitart /Acetaminophen 1 tab 04/21/22 16:08 04/23/22 13:42 Hydrocodone-Acet aminophen 10-325 M g Tablet PO 1 tab Q8H PRN Administration Pain Azithromycin 500 mg 04/22/22 09:00 04/23/22 08:36 Azithromycin 250 Mg Tablet PO 500 mg DAILY JONATAN Administration Protocol Diltiazem HCl 240 mg 04/22/22 09:00 04/23/22 09:00 Diltiazem Er (24 hr) 240 Mg Capsule PO 240 mg DAILY JONATAN Administration Diltiazem HCl 30 mg 04/22/22 14:41 04/22/22 15:09 Diltiazem 30 Mg Tablet PO 30 mg Q6H PRN Administration HEART RATE-HIGH Enoxaparin Sodium 40 mg 04/21/22 16:15 04/22/22 16:32 Enoxaparin 40 Mg /0.4 Ml Syringe SUBCUT Not Given Q24H JONATAN Furosemide 40 mg 04/23/22 11:45 04/23/22 13:16 Furosemide 10 Mg /Ml Sdv 4ml IVP 40 mg Q24H JONATAN Administration Ceftriaxone Sodium 1,000 mg/ 50 mls @ 100 mls/ hr 04/22/22 09:00 04/23/22 10:10 Sodium Chloride IV Infused DAILY JONATAN Infusion Protocol Insulin Human Lisp ro 0 unit 04/21/22 18:00 04/23/22 13:17 Insulin Lispro 1 00 Unit/1 Ml SUBCUT 2 unit TIDWM JONATAN Administration Protocol Ipratropium Bromid e 0.5 mg 04/23/22 14:00 04/23/22 13:04 Ipratropium 0.5 Mg/2.5 Ml Neb INHALATION 0.5 mg Q6H JONATAN Administration Levalbuterol HCl 0.63 mg 04/23/22 14:00 04/23/22 13:04 Levalbuterol 0.6 3 Mg/3 Ml Neb INHALATION 0.63 mg Q6H.RESP JONATAN Administration Metoprolol Tartrat e 12.5 mg 04/21/22 18:00 04/23/22 08:36 Metoprolol Tartr ate 25 Mg Tablet PO 12.5 mg BID JONATAN Administration Non-Formulary Medi cation 250 mcg 04/21/22 18:00 04/23/22 08:59 Dofetilide PO 250 mcg BID JONATAN Administration Nystatin 1 applic 04/21/22 18:00 04/23/22 09:00 Nystatin Powder 15 Gm Btl TOPICAL 1 applic BID JONATAN Administration Ondansetron HCl 4 mg 04/21/22 16:05 04/23/22 00:02 Ondansetron 2 Mg /Ml Sdv 2 Ml IVP 4 mg Q6H PRN Administration NAUSEA AND VOMITI NG Pantoprazole Sodiu m 40 mg 04/22/22 09:00 04/23/22 08:[address] 40 Mg Tablet PO 40 mg DAILY JONATAN Administration Prednisone 10 mg 04/22/22 09:00 04/23/22 08:36 Prednisone 10 Mg Tablet PO 10 mg DAILY JONATAN Administration Senna/Docusate Sod ium 1 tab 04/22/22 09:00 04/23/22 09:00 Sennosides-Docus ate Tablet PO 1 tab DAILY JONATAN Administration Zolpidem Tartrate 10 mg 04/21/22 21:00 04/22/22 20:38 Zolpidem 5 Mg Ta blet PO 10 mg BEDTIME JONATAN Administration Vitals/I&O/Wt Last Vital Signs Temp 98.2 F 04/23/22 15:34 Pulse 86 04/23/22 15:34 Resp 16 04/23/22 15:34 BP 100/69 04/23/22 15:34 Pulse Ox 95 04/23/22 15:34 O2 Del Method 04/23/22 15:34 O2 Flow Rate 3 04/23/22 13:04 04/23/22 04/23/22 04/23/22 06:59 14:59 22:59 Intake Total 1010 / 1010 Balance 1010 / 1010 Physical Exam 2 Const: COMMON NORMALS: patient oriented x3 Resp: COMMON NORMALS: clear to auscultation bilaterally AUSCULTATION: clear to auscultation bilaterally Cardio: COMMON NORMALS: regular rate, regular rhythm, S1 normal heart sound present, S2 normal heart sound present, No gallops present (Cardio), No murmurs present (Cardio), No rub (Cardio) and Peripheral pulses 2+ throughout RATE: regular rate RHYTHM: regular rhythm HEART SOUNDS: S1 normal heart sound present and S2 normal heart sound present PERIPHERAL PULSES: Peripheral pulses 2+ throughout GI: COMMON NORMALS: Normal to inspection, nondistended, normoactive bowel sounds present, Soft to palpation, non-tender, No hepatosplenomegaly present and no masses AUSCULTATION: Yes normoactive bowel sounds PALPATION: Yes Soft to palpation and Yes No hepatosplenomegaly present RECTAL EXAM: deferred Extremity: COMMON NORMALS: no clubbing, cyanosis or edema and no pedal edema Neuro: COMMON NORMALS: patient oriented x3 Data : 04/23/22 12:48 04/23/22 12:48 A&P Assessment and plan (1) Pneumonia: Qualifiers: Laterality: right Lung location: lower lobe of lung Pneumonia type: due to unspecified organism Qualified Code(s): J18.9 - Pneumonia, unspecified organism (2) Sinus node dysfunction: (3) Chronic anticoagulation: (4) COPD (chronic obstructive pulmonary disease): Qualifiers: COPD type: emphysema Emphysema type: panlobular Qualified Code(s): J43 .1 - Panlobular emphysema Plan Community-acquired pneumonia Patient oxygen requirement has not worsened No leukocytosis or sepsis I will start her on ceftriaxone and azithromycin DuoNeb every 4 as needed We will give her low-dose steroid Sick sinus syndrome Patient was scheduled for permanent pacemaker placement on Sunday by Dr. Price Currently inform Dr. Price on Sunday if she stays until then She prefers to get it done during this hospitalization HFpEF Continue Lasix 40 IV daily Monitor intake and output charting K>4,MG>2 Daily weight A. fib without RVR Continue dofetilide metoprolol and Cardizem Her Xarelto has been on hold in anticipation of pacemaker placement Cardiac diet Full code DVT prophylaxis with Lovenox for now Attestations Medical Necessity Statement*: Patient is in hospital for management of pneumonia. Time Spent in Patient Care: Greater than 35 minutes (>than 50% of time spent in counselling and/or direct pt care on unit) . 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
[2022-04-23 16:52] LABS: Glucose Point of Care 184 mg/dL (70-110)
[2022-04-23] MEDS: zolpidem 5 mg Tablet 10 MG PO (21:27)
[2022-04-23 21:31] LABS: Glucose Point of Care 163 mg/dL (70-110)
[2022-04-24] VITALS (8 sets, daily range): BP systolic 102–119; BP diastolic 53–65; PULSE 48–60; RESP 16–18; TEMP 36.5–36.8; O2SAT 94–97
[2022-04-24] MEDS: ipratropium 0.5 mg/2.5 mL Neb INHALATION ×2 (03:09→09:30)
[2022-04-24] MEDS: levalbuterol 0.63 mg/3 mL Neb INHALATION ×2 (03:09→09:30)
[2022-04-24 05:40] LABS: Basophils % 0.3 %; Eosinophils # 0.2 10^3/uL (0.0-0.8); Eosinophils % 1.8 %; Hematocrit 34.3 % (37.0-47.0); Hemoglobin 10.7 g/dL (11.5-15.3); Lymphocytes # 2.6 10^3/uL (0.8-4.8); Lymphocytes % 26.1 %; Mean Corpuscular HGB Conc 31.2 g/dL (30.0-36.0); Mean Corpuscular Hemoglobin 30.1 pg (28.0-34.0); Mean Corpuscular Volume 96.6 fl (81-99); Mean Platelet Volume 9.9 fL (7.4-10.4); Monocytes # 0.8 10^3/uL (0.2-0.9); Monocytes % 8.3 %; Neutrophils # 6.32 10^3/uL (1.8-7.7); Neutrophils % 63.1 %; Nucleated Red Blood Cells % 0 %; Platelet Count 448 10^3/cmm (130-400); Red Blood Count 3.55 10^6/uL (4.1-5.3); Red Cell Distribution Width 13.3 % (12.1-15.1)
[2022-04-24 06:00] LABS: Alanine Aminotransferase < 5 U/L (0-33); Alkaline Phosphatase 90 U/L (35-105); Aspartate Amino Transferase 15 U/L (0-32); Blood Urea Nitrogen 16 mg/dL (8-23); Calcium 9.2 mg/dL (8.5-10.5); Carbon Dioxide 30 mmol/L (22-29); Chloride 100 mmol/L (98-107); Globulin 2.6 g/dL (1.3-4.6); Glucose 100 mg/dL (65-115); Magnesium 1.6 mg/dL (1.7-2.3); Osmolality Calculated 285 mOsm/kg (285-295); Sodium 137 mmol/L (136-145); Total Bilirubin 0.2 mg/dL (0.15-1.2); Total Protein 5.6 g/dL (6.6-8.7)
[2022-04-24 06:05] LABS: Anion Gap 10.3 (5-19); Potassium 3.3 mmol/L (3.5-5.1)
[2022-04-24 06:26] LABS: Glucose Point of Care 131 mg/dL (70-110)
[2022-04-24] MEDS: nystatin powder 15 gm Btl 1 APPLIC TOPICAL (07:39)
[2022-04-24] MEDS: pantoprazole DR 40 mg Tablet PO (07:46)
[2022-04-24] MEDS: dilTIAZem ER (24HR) 240 mg Capsule PO (07:47)
[2022-04-24] MEDS: metoprolol tartrate 25 mg Tablet 12.5 MG PO (07:47)
[2022-04-24] MEDS: azithromycin 250 mg Tablet 500 MG PO (07:50)
[2022-04-24] MEDS: sennosides-docusate Tablet 1 TAB PO (07:51)
[2022-04-24] MEDS: cefTRIAXone 1,000 MG in sodium chloride 0.9% (plus) 50 ML 100 MG IV (07:52)
[2022-04-24 11:18] LABS: Glucose Point of Care 191 mg/dL (70-110)
[2022-04-24] MEDS: FUROsemide 10 mg/mL SDV 4mL 40 MG IVP (11:45)
[2022-04-24] MEDS: insulin lispro 100 unit/1 mL SUBCUT (11:45)
--- NOTE | 2022-04-24 11:48 | P.PN_ITS ---
Subjective Subjective: Ms. Álvarez is currently hospitalized for RLL pneumonia. She was scheduled for pacemaker implantation electively tomorrow. She maintains a productive cough on my visit at bedside this morning. Vitals/I&O/Wt Last Vital Signs Temp 97.8 F 04/24/22 07:55 Pulse 57 L 04/24/22 09:32 Resp 16 04/24/22 09:32 BP 113/65 04/24/22 07:55 Pulse Ox 97 04/24/22 09:32 O2 Del Method 04/24/22 09:32 O2 Flow Rate 3 04/24/22 09:32 04/23/22 04/24/22 04/24/22 22:59 06:59 14:59 Intake Total 340 / 1350 420 / 1770 170 / 170 Balance 340 / 1350 420 / 1770 170 / 170 Physical Exam Resp: AUSCULTATION: rales on the right Cardio: RHYTHM: abnormal rhythm irregularly irregular Data : 04/24/22 04:33 04/24/22 04:33 Micro: Microbiology 04/21/22 11:53 MRSA Culture - Final Nose 04/21/22 11:53 Bacterial Antigens - Final Urine,Voided A&P Assessment and plan (1) Sinus node dysfunction: I would delay elective pacemaker implantation as she is currently under treatmen t for pneumonia. We will reach out to her from our office in one week to assess her progress. Attestations Medical Necessity Statement*: Sinus node dysfunction; current admission for pneumonia Coding Level of Care Code Established Pt Acute Ship'S Electronic Warfare Officer for [facility] Patient Type Established Diagnoses Sinus node dysfunction I49.5
--- NOTE | 2022-04-24 12:00 | PC.CHAP ---
Pastoral Care Encounter/Spiritual Assessment Type of Contact [] Declined product development manager visit [] Patient/Family/Request visit [] Outpatient visit [] Follow-up visit [] Physician referral [] Code/Alert [x] Routine visit [] Staff referral [] Actively dying [] Patient sleeping [] Family support [] [] Out of room [] Palliative care [] [] Receiving care in room [] Pre-surgical visit [] Trauma [] Long length of stay [] ICU visit [] Other: Relational/Emotional Strength x[] Patient feels connected with others/family/visitors/staff [] Distress [] Loneliness/isolation [] Abandonment Spirituality of Patient [x] Person of Karen [x] Attends Shinto of their Karen [x] Believes in Prayer [] Reads Bible or Islam materials [] There are Spiritual issues to be addressed Manager Of Case Interventions [x] Prayer [] Active listening [] Non-anxious presence [] Spiritual/emotional support [] Crisis/trauma care [] Spiritual counseling [] Bereavement support [] Provided bereavement packet [] Provided Bible/devotional materials [] Provided toy/stuffed animal, coloring book to patient or family member [] Provided Communion [] Anointing/[place] [] Salvation [] Completed spiritual assessment [] Other: Impact on Illness or Injury [] Angry [] Fearful [] Anxious [] Often cries [] Exhaustion [] Unable to work [] Unable to attend judaism [] Unable to walk/stand [] Unable to read [] Unable to drive [] Unable to eat/drink [] Unable to sleep [] Unable to be with family [] Patient intubated [] Other: Summary Time spent with patient 10 min
--- NOTE | 2022-04-24 12:59 | P.DS_ITS ---
Discharge Providers Date of Admission: 04/21/22 14:25 Date of Discharge: April 24, 2022 Attending Provider at Admission: Shayy Chavez MD Attending Provider at Discharge: Naeem Hale MD Primary Care Provider: Ava Fernandez DO Diagnoses at Discharge Discharge Diagnosis (1) Sinus node dysfunction: Status: Acute Reason for Visit Reason for Visit: SOB and Afib Hospital Course Hospital Course 71 year old female with past medical history of hypertension COPD On 3LS? home oxygen atrial fibrillation on Xarelto, and dofetilide , Cardizem, metoprolol, sick sinus syndrome , currently awaiting pacemaker placement , heart failure with preserved ejection fraction (?mildly dilated R.V with slightly diminished ejection fraction )?, was brought in with chief complaint of worsening shortness of breath and productive cough, for the management of pneumonia, she was kept on antibiotic, DuoNebs, supplemental oxygen as needed, and other conservative respiratory support measures, MRSA PCR was negative, bacterial antigen panel was negative, overall she responded well to above medical management, at the time of discharge she was hemodynamically stable , saturating well at home supplemental oxygen requirement, she was discharged on levofloxacin for a dditional 7 days.She will follow Dr. Price as outpatient, for the pacemaker placement, once she has recovered from the current pneumonia episode. She is being discharged home in stable condition. Physical Exam Const: COMMON NORMALS: patient oriented x3 Resp: COMMON NORMALS: clear to auscultation bilaterally AUSCULTATION: clear to auscultation bilaterally Cardio: COMMON NORMALS: regular rate, regular rhythm, S1 normal heart sound present, S2 normal heart sound present, No gallops present (Cardio), No murmurs present (Cardio), No rub (Cardio) and Peripheral pulses 2+ throughout RATE: regular rate RHYTHM: regular rhythm HEART SOUNDS: S1 normal heart sound present and S2 normal heart sound present PERIPHERAL PULSES: Peripheral pulses 2+ throughout GI: COMMON NORMALS: Normal to inspection, nondistended, normoactive bowel sounds present, Soft to palpation, non-tender, No hepatosplenomegaly present and no masses AUSCULTATION: Yes normoactive bowel sounds PALPATION: Yes Soft to palpation and Yes No hepatosplenomegaly present RECTAL EXAM: deferred Extremity: COMMON NORMALS: no clubbing, cyanosis or edema and no pedal edema Neuro: COMMON NORMALS: patient oriented x3 Discharge Data Studies Completed and Pending Completed Studies During Hospitalization Category Date Time Status XR chest 1V portable [id number] Stat Exams 04/21/22 10:41 Completed Pending at discharge Category Date Time Status CBC Auto Diff [Complete Blood Count w/Auto] AM LABS Lab 04/25/22 04:00 Ordered CBC Auto Diff [Complete Blood Count w/Auto] AM LABS Lab 04/26/22 04:00 Ordered CMP [Comprehensive Metabolic Panel] AM LABS Lab 04/25/22 04:00 Ordered CMP [Comprehensive Metabolic Panel] AM LABS Lab 04/26/22 04:00 Ordered Magnesium AM LABS Lab 04/25/22 04:00 Ordered Magnesium AM LABS Lab 04/26/22 04:00 Ordered Radiology Impressions Chest X-Ray 04/21/22 10:41 Impression: 1. Patchy opacity in right lower lobe which could indicate atelectasis and/or pneumonia. 2. Cardiomegaly and atherosclerosis. Laboratory Results WBC 10.0 10^3/uL (4.0-10.0) 04/24/22 04:33 RBC 3.55 10^6/uL (4.1-5.3) L 04/24/22 04:33 Hgb 10.7 g/dL (11.5-15.3) L 04/24/22 04:33 Hct 34.3 % (37.0-47.0) L 04/24/22 04:33 MCV 96.6 fl (81-99) 04/24/22 04:33 MCH 30.1 pg (28.0-34.0) 04/24/22 04:33 MCHC 31.2 g/dL (30.0-36.0) 04/24/22 04:33 RDW 13.3 % (12.1-15.1) 04/24/22 04:33 Plt Count 448 10^3/cmm (130-400) H 04/24/22 04:33 MPV 9.9 fL (7.4-10.4) 04/24/22 04:33 Neut % (Auto) 63.1 % 04/24/22 04:33 Lymph % (Auto) 26.1 % 04/24/22 04:33 [place] % (Auto) 8.3 % 04/24/22 04:33 Eos % (Auto) 1.8 % 04/24/22 04:33 Baso % (Auto) 0.3 % 04/24/22 04:33 Neut # (Auto) 6.32 10^3/uL (1.8-7.7) 04/24/22 04:33 Lymph # (Auto) 2.6 10^3/uL (0.8-4.8) 04/24/22 04:33 [place] # (Auto) 0.8 10^3/uL (0.2-0.9) 04/24/22 04:33 Eos # (Auto) 0.2 10^3/uL (0.0-0.8) 04/24/22 04:33 Baso # (Auto) 0.0 10^3/uL (0.0-0.1) 04/24/22 04:33 Nucleated RBC % (auto) 0 % 04/24/22 04:33 Nucleated RBCs # 0.0 /100WBC 04/24/22 04:33 Sodium 137 mmol/L (136-145) 04/24/22 04:33 Potassium 3.3 mmol/L (3.5-5.1) L 04/24/22 04:33 Chloride 100 mmol/L (98-107) 04/24/22 04:33 Carbon Dioxide 30 mmol/L (22-29) H 04/24/22 04:33 Anion Gap 10.3 (5-19) 04/24/22 04:33 BUN 16 mg/dL (8-23) 04/24/22 04:33 Creatinine 1.0 mg/dL (0.5-0.9) H 04/24/22 04:33 GFR Calculation Not Reportable 04/24/22 04:33 Glucose 100 mg/dL (65-115) 04/24/22 04:33 POC Glucose 191 mg/dL (70-110) H 04/24/22 11:10 Estimat Average Glucose 123 04/21/22 10:35 Hemoglobin A1c 5.9 % (4.0-6.0) 04/21/22 10:35 Calculated Osmolality 285 mOsm/kg (285-295) 04/24/22 04:33 Calcium 9.2 mg/dL (8.5-10.5) 04/24/22 04:33 Magnesium 1.6 mg/dL (1.7-2.3) L 04/24/22 04:33 Total Bilirubin 0.2 mg/dL (0.15-1.2) 04/24/22 04:33 AST 15 U/L (0-32) 04/24/22 04:33 ALT < 5 U/L (0-33) 04/24/22 04:33 Alkaline Phosphatase 90 U/L (35-105) 04/24/22 04:33 Troponin T Gen 5 ng/L 40 ng/L (0-10) H 04/21/22 10:35 Troponin T 120 Minute 33.36 ng/L (0-10) H 04/21/22 13:05 Delta Troponin T -6.64 ABS# (0-10) L 04/21/22 13:05 Troponin T Hi Sens 6Hr 37.80 ng/L (0-10) H 04/21/22 16:15 Troponin T Hi Sens 6Hr Delta -2.2 ng/L (0-12) L 04/21/22 16:15 C-Reactive Protein 19.6 mg/L (0.0-4.9) H 04/22/22 03:31 NT-Pro-B Natriuret Pep 686 pg/mL (0-125) H 04/21/22 10:35 Total Protein 5.6 g/dL (6.6-8.7) L 04/24/22 04:33 Albumin 3.0 g/dL (3.5-5.2) L 04/24/22 04:33 Globulin 2.6 g/dL (1.3-4.6) 04/24/22 04:33 Influenza Type A Ag negative (Negative) 04/21/22 10:45 Influenza Type B Ag negative (Negative) 04/21/22 10:45 SARS-CoV-2 Ag (Rapid) negative (Negative) 04/21/22 10:45 Vitals Last Vital Signs Temp 98.3 F 04/24/22 12:00 Pulse 60 04/24/22 12:00 Resp 16 04/24/22 12:00 BP 102/53 04/24/22 12:00 Pulse Ox 96 04/24/22 12:00 O2 Del Method 04/24/22 09:32 O2 Flow Rate 3 04/24/22 09:32 Discharge Plan Discharge Patient Disposition: Home Condition: Stable Prescriptions: New levofloxacin 750 mg tablet 750 mg PO DAILY 7 Days Qty: 7 0RF Continued furosemide [Lasix] 40 mg tablet 40 mg PO BID 30 Days Qty: 60 2RF metoprolol tartrate 25 mg tablet 12.5 mg PO BID Qty: 90 3RF magnesium L-lactate [Magtab] 84 mg tablet extended release 84 mg PO BID Qty: 180 3RF Xarelto 15 mg tablet 15 mg PO DAILY Qty: 30 2RF Hold Instructions: Resume on 04/11/22. This evening Rx Instructions: must administer with evening meal montelukast 10 mg tablet 10 mg PO BEDTIME Qty: 30 1RF hydrocodone-acetaminophen 10-325 mg tablet 1 tab PO Q8H PRN (Reason: Pain) 30 Days Qty: 90 0RF zolpidem 10 mg tablet 10 mg PO BEDTIME Qty: 30 0RF sennosides-docusate sodium [Stool Softener-Laxative] 8.6-50 mg Tablet 1 tab PO BID Qty: 60 0RF pantoprazole 40 mg Tablet,Delayed Release (Dr/Ec) 40 mg PO DAILY Qty: 14 0RF lactulose 10 gram/15 mL solution 10 g PO DAILY PRN (Reason: constipation) Qty: 237 0RF alprazolam 1 mg Tablet 0.5 mg PO BID 14 Days Qty: 14 0RF rosuvastatin 20 mg Tablet 20 mg PO DAILY 30 Days Qty: 30 0RF albuterol sulfate 2.5 mg /3 mL (0.083 %) Solution For Nebulization 2.5 mg INHALATION Q4H PRN (Reason: Shortness Of Breath) albuterol sulfate 90 mcg/actuation Hfa Aerosol Inhaler 1 puff INHALATION QID PRN (Reason: Shortness Of Breath) diltiazem HCl [Cardizem LA] 240 mg tablet extended release 24 hr 240 mg PO DAILY Qty: 90 2RF promethazine 6.25 mg/5 mL Syrup 6.25 mg PO QID PRN (Reason: Cough) potassium chloride 20 mEq Tablet Extended Release 40 meq PO DAILY Anoro Ellipta 62.5-25 mcg/actuation blister with device 1 inh INHALATION BID dofetilide 125 mcg capsule 250 mcg PO BID 30 Days Qty: 120 3RF diltiazem HCl 30 mg tablet 30 mg PO Q8H PRN (Reason: Blood Pressure) Rx Instructions: TAKE IF BP OVER 110 guaifenesin 400 mg tablet 400 mg PO TID PRN (Reason: Congestion) cholecalciferol (vitamin D3) [Vitamin D3] 25 mcg (1,000 unit) Tablet 25 mcg PO DAILY Discontinued prednisone 10 mg tablet 10 mg PO DAILY Discharge Orders: Discharge Order (Routine); Ordered 04/24/22 Ordered By: Naeem Hale Referrals: Ava Fernandez DO [Primary Care Provider] - 05/01/22 2:15 pm Discharge Diet: Usual diet Patient Instructions: Levofloxacin (By mouth), Pneumonia (GEN), Sick Sinus Syndrome (GEN), Opioid Safety Discharge Attestations Time Spent in Discharge Care*: less than 30 min Status at Discharge: Cognitive status at discharge: cognitively intact , Behavioral status at discharge: cooperative , Quality Metrics Clinical Quality Measures [ No reported AMI, CVA or VTE this stay] Coding Level of Care Code Acute [facility] [place] note Diagnoses Sinus node dysfunction I49.5
== END 2022-04-24 14:48 | disposition home or self-care (01) | DRG 194 ==
LOC: ER 12:10 → MEDSURG 14:25
PROVIDERS: Emergency Medicine; Admitting Provider Internal Medicine; Emergency Provider Physician Assistant; PCP Family Medicine; Visit Provider Internal Medicine
DX: J18.9 Pneumonia, unspecified organism (principal); I13.0 Hypertensive heart and chronic kidney disease with heart failure and stage 1 through stage 4 chronic kidney disease, or unspecified chronic kidney disease; I50.32 Chronic diastolic (congestive) heart failure; I48.91 Unspecified atrial fibrillation; Z99.81 Dependence on supplemental oxygen; Z88.5 Allergy status to narcotic agent; Z88.0 Allergy status to penicillin; N18.9 Chronic kidney disease, unspecified; E11.22 Type 2 diabetes mellitus with diabetic chronic kidney disease; J43.1 Panlobular emphysema; Z85.3 Personal history of malignant neoplasm of breast; F17.200 Nicotine dependence, unspecified, uncomplicated; I49.5 Sick sinus syndrome; Z79.01 Long term (current) use of anticoagulants; Z79.51 Long term (current) use of inhaled steroids; Z79.891 Long term (current) use of opiate analgesic
CPT/HCPCS: 36415; 36416; 71045; 80048; 80053; 82962; 83036; 83735; 83880; 84484; 85025; 86140; 86403; 87426; 87641; 87804; 93005; 94640; 94664; 96365; 96367; 96372; 96375; 99285; J0696; J1815; J1940; J2405; J3490; J7512; J7614; J7644; Q0144

== ENCOUNTER → 2022-05-04 15:25 | Outpatient (BNVA) | payer MEDICARE, BC, SELFPAY | PROVIDERS: PCP Family Medicine; Visit Provider Family Medicine | DX: J18.9 Pneumonia, unspecified organism (principal) | CPT/HCPCS: 71046 ==

== ENCOUNTER 2022-05-20 16:08 | Emergency (ER) | payer MEDICARE, BC, SELFPAY ==
[2022-05-20 16:31] VITALS: BP 109/63; PULSE 61; RESP 18; TEMP 36.6; O2SAT 97
--- NOTE | 2022-05-20 18:25 | XRR_ITS ---
PROCEDURE INFORMATION: Exam: XR Chest Exam date and time: 05/20/2022 8:00 PM Age: 71 years old Clinical indication: Shortness of breath; Additional info: SOB TECHNIQUE: Imaging protocol: Radiologic exam of the chest. Views: 1 view. COMPARISON: CR XR chest 2V* [id number] 05/04/2022 3:31 PM FINDINGS: Tubes, catheters and devices: EKG monitoring leads overlie the thoracic wall. Lungs: The pulmonary vascularity appears normal. There is a retrocardiac opacity that may represent atelectasis and/or pneumonia. Pleural spaces: No pleural effusion or pneumothorax. Heart/Mediastinum: There is stable cardiomegaly. Bones/joints: No acute fracture is identified. Soft tissues: There are postoperative changes of the right sub axillary region. XR/XR chest 1V portable [id number] IMPRESSION: 1. Stable cardiomegaly. 2. Interim development of a retrocardiac opacity that may be secondary to atelectasis or in the appropriate clinical setting, pneumonia.
[2022-05-20 20:20] LABS: Basophils % 0.5 %; Eosinophils # 0.3 10^3/uL (0.0-0.8); Eosinophils % 3.6 %; Hematocrit 40.4 % (37.0-47.0); Hemoglobin 12.6 g/dL (11.5-15.3); Lymphocytes # 2.1 10^3/uL (0.8-4.8); Lymphocytes % 27.4 %; Mean Corpuscular HGB Conc 31.2 g/dL (30.0-36.0); Mean Corpuscular Hemoglobin 29.6 pg (28.0-34.0); Mean Corpuscular Volume 95.1 fl (81-99); Mean Platelet Volume 9.6 fL (7.4-10.4); Monocytes # 0.7 10^3/uL (0.2-0.9); Monocytes % 9.5 %; Neutrophils # 4.41 10^3/uL (1.8-7.7); Neutrophils % 58.7 %; Nucleated Red Blood Cells % 0 %; Platelet Count 415 10^3/cmm (130-400); Red Blood Count 4.25 10^6/uL (4.1-5.3); White Blood Count 7.5 10^3/uL (4.0-10.0)
[2022-05-20 20:56] LABS: Alanine Aminotransferase 6 U/L (0-33); Albumin Level 3.4 g/dL (3.5-5.2); Alkaline Phosphatase 115 U/L (35-105); Blood Urea Nitrogen 13 mg/dL (8-23); Carbon Dioxide 31 mmol/L (22-29); Chloride 97 mmol/L (98-107); Globulin 3.1 g/dL (1.3-4.6); Glucose 134 mg/dL (65-115); NT Pro B Type Natriuretic Pept 303 pg/mL (0-125); Osmolality Calculated 286 mOsm/kg (285-295); Sodium 137 mmol/L (136-145); Total Bilirubin 0.3 mg/dL (0.15-1.2); Total Protein 6.5 g/dL (6.6-8.7)
[2022-05-20 21:03] LABS: Aspartate Amino Transferase 18 U/L (0-32)
[2022-05-20 21:04] VITALS: BP 111/63; PULSE 80; RESP 20; O2SAT 97
[2022-05-20] MEDS: doxycycline 100 mg Tablet PO (22:06)
[2022-05-20 22:19] VITALS: BP 111/63; PULSE 80; RESP 20; O2SAT 97
--- NOTE | 2022-05-21 16:37 | W.ED.SOB ---
HPI - SOB/Dyspnea General: Chief Complaint: Shortness of Breath/Dyspnea Stated Complaint: SOB, fever Time Seen by Provider: 05/20/22 20:02 Source: patient History of Present Illness: HPI Narrative: 71 year old female he was admitted three weeks ago with pneumonia. She states that she had improved to some degree. She stopped her levofloxacin early due to stomach pain, and now believes she has pneumonia again. She's experiencing pleuritic left sided chest pain, cough, and sputum production. No fevers. MD elicited complaint: shortness of breath, cough and chest pain (mild pleuritic left) Pertinent past history: COPD and pneumonia Onset (ago): day(s) Context: recent illness Timing: constant Severity: similar to previous episodes Exacerbating factors: exertion and coughing Relieving factors: oxygen and bronchodilators Known history of: COPD and other (Afib) Associated symptoms: Reports chest congestion, chest pain, cough and nausea; Deny abdominal pain, diaphoresis, fever(s) or vomiting Treatment prior to arrival: oxygen and bronchodilator Related Data: Home oxygen amount: 4 liters Review of Systems Const: Denies: fever(s) or diaphoresis ENMT: Reports: throat pain Card: Reports: chest pain Resp: Reports: dyspnea, productive cough and chest congestion GI: Reports: nausea; Denies: abdominal pain or vomiting PFSH ED PFSH: Medical History Abdominal pain Acute diastolic heart failure Acute kidney injury superimposed on CKD HERBER (acute kidney injury) Atrial fibrillation Atrial fibrillation Atrial fibrillation with rapid ventricular response Atrial fibrillation with RVR Chronic anticoagulation Chronic kidney disease COPD (chronic obstructive pulmonary disease) Dehydration Fatigue Generalized weakness GERD (gastroesophageal reflux disease) History of breast cancer History of syncope HTN (hypertension) with goal to be determined Hypokalemia Pneumonia Right heart failure Sinus node dysfunction T2DM (type 2 diabetes mellitus) Volume overload Surgical History History of knee replacement History of radical hysterectomy Hx of cholecystectomy Family History Mother , at age 62 Cancer Cervical Emphysema lung Father , at age 64 Black lung disease Social History Smoking and tobacco status: current every day smoker Alcohol intake: never Household members: spouse Marital status: / Current occupational status: retired History of recent travel: No Physical Exam Const: COMMON NORMALS: no acute distress GENERAL APPEARANCE: cooperative, ill appearing (mildly) and frail appearing HENMT: COMMON NORMALS: normocephalic, atraumatic and Normal external nose present HEAD & SCALP: normocephalic and atraumatic FACE & SINUS: normal facial exam and face symmetric NOSE: Normal external nose present Eye: COMMON NORMALS: Equal, round and reactive pupils present and EOMs intact bilaterally PUPIL: Yes Equal, round and reactive pupils present Neck/C-Spine: GENERAL: Yes trachea midline Chest: CHEST: Yes Symmetrical chest wall rise Resp: COMMON NORMALS: normal respiratory effort, No retractions, No use of accessory muscles and clear to auscultation bilaterally AUSCULTATION: clear to auscultation bilaterally Cardio: COMMON NORMALS: regular rate and regular rhythm RATE: regular rate RHYTHM: regular rhythm GI: COMMON NORMALS: Normal to inspection, nondistended, normoactive bowel sounds present Extremity: COMMON NORMALS: no pedal edema Neuro: CON COMA SCALE: document GCS findings [place] coma scale eye opening: Spontaneous [place] coma scale verbal response: Orientated Con coma scale motor response: Obey commands [place] coma scale total score: 15 SENSORY EXAM: Yes extremities (intact) Psych: COMMON NORMALS: speech normal SPEECH: Yes normal speech Skin: COMMON NORMALS: no rashes or lesions noted GENERAL SKIN EXAM: no rashes or lesions noted Course Vital Signs: Vital signs: Vital Signs Temperature 97.9 F 05/20/22 16:31 Pulse Rate 80 05/20/22 22:19 Respiratory Rate 20 H 05/20/22 22:19 Blood Pressure 111/63 05/20/22 22:19 Pulse Oximetry 97 05/20/22 22:19 Oxygen Delivery Me thod 05/20/22 21:04 Oxygen Flow Rate 3 05/20/22 21:04 MDM - SOB/Dyspnea Medical Decision Making Oxygen saturations have been normal on her home oxygen setting. Vitals were good otherwise. Chest X-ray shows a retro cardiac infiltrate that could be analysis or pneumonia. White blood cell count only 7.5. Laboratory is not otherwise remarkable. She will go home on doxycycline, an extended course this time. To return if worsening. Lab Data 05/20/22 20:11 05/20/22 20:11 Labs/Radiology: Radiology Impressions Chest X-Ray 05/20/22 18:25 IMPRESSION: 1. Stable cardiomegaly. 2. Interim development of a retrocardiac opacity that may be secondary to atelectasis or in the appropriate clinical setting, pneumonia. ADDENDUM: 05/20/222132 As of 8:59 p.m. on 05/20/2022, Franchesca Lazaro confirmed that Dr. Buckner has received the exam report, is aware of the critical finding, and indicated no conference call was necessary to discuss the exam findings. Laboratory Results WBC 7.5 10^3/uL (4.0-10.0) 05/20/22 20:11 RBC 4.25 10^6/uL (4.1-5.3) 05/20/22 20:11 Hgb 12.6 g/dL (11.5-15.3) 05/20/22 20:11 Hct 40.4 % (37.0-47.0) 05/20/22 20:11 MCV 95.1 fl (81-99) 05/20/22 20:11 MCH 29.6 pg (28.0-34.0) 05/20/22 20:11 MCHC 31.2 g/dL (30.0-36.0) 05/20/22 20:11 RDW 13.0 % (12.1-15.1) 05/20/22 20:11 Plt Count 415 10^3/cmm (130-400) H 05/20/22 20:11 MPV 9.6 fL (7.4-10.4) 05/20/22 20:11 Neut % (Auto) 58.7 % 05/20/22 20:11 Lymph % (Auto) 27.4 % 05/20/22 20:11 [place] % (Auto) 9.5 % 05/20/22 20:11 Eos % (Auto) 3.6 % 05/20/22 20:11 Baso % (Auto) 0.5 % 05/20/22 20:11 Neut # (Auto) 4.41 10^3/uL (1.8-7.7) 05/20/22 20:11 Lymph # (Auto) 2.1 10^3/uL (0.8-4.8) 05/20/22 20:11 [place] # (Auto) 0.7 10^3/uL (0.2-0.9) 05/20/22 20:11 Eos # (Auto) 0.3 10^3/uL (0.0-0.8) 05/20/22 20:11 Baso # (Auto) 0.0 10^3/uL (0.0-0.1) 05/20/22 20:11 Nucleated RBC % (auto) 0 % 05/20/22 20:11 Nucleated RBCs # 0.0 /100WBC 05/20/22 20:11 Sodium 137 mmol/L (136-145) 05/20/22 20:11 Potassium 4.0 mmol/L (3.5-5.1) 05/20/22 20:11 Chloride 97 mmol/L (98-107) L 05/20/22 20:11 Carbon Dioxide 31 mmol/L (22-29) H 05/20/22 20:11 Anion Gap 13.0 (5-19) 05/20/22 20:11 BUN 13 mg/dL (8-23) 05/20/22 20:11 Creatinine 1.0 mg/dL (0.5-0.9) H 05/20/22 20:11 GFR Calculation Not Reportable 05/20/22 20:11 Glucose 134 mg/dL (65-115) H 05/20/22 20:11 Calculated Osmolality 286 mOsm/kg (285-295) 05/20/22 20:11 Calcium 10.0 mg/dL (8.5-10.5) 05/20/22 20:11 Total Bilirubin 0.3 mg/dL (0.15-1.2) 05/20/22 20:11 AST 18 U/L (0-32) 05/20/22 20:11 ALT 6 U/L (0-33) 05/20/22 20:11 Alkaline Phosphatase 115 U/L (35-105) H 05/20/22 20:11 NT-Pro-B Natriuret Pep 303 pg/mL (0-125) H 05/20/22 20:11 Total Protein 6.5 g/dL (6.6-8.7) L 05/20/22 20:11 Albumin 3.4 g/dL (3.5-5.2) L 05/20/22 20:11 Globulin 3.1 g/dL (1.3-4.6) 05/20/22 20:11 Discharge Plan Discharge Patient Disposition: Home Clinical Impression: Pneumonia Qualifiers: Pneumonia type: due to unspecified organism Laterality: left Lung location: lower lobe of lung Qualified Code(s): J18.9 - Pneumonia, unspecified organism Condition: Stable Prescriptions: New doxycycline hyclate 100 mg capsule 100 mg PO BID 10 Days Qty: 20 0RF No Action furosemide [Lasix] 40 mg tablet 40 mg PO BID 30 Days Qty: 60 0RF Rx Instructions: 340 B metoprolol tartrate 25 mg tablet 12.5 mg PO BID Qty: 90 3RF magnesium L-lactate [Magtab] 84 mg tablet extended release 84 mg PO BID Qty: 180 3RF Xarelto 15 mg tablet 15 mg PO DAILY Qty: 30 2RF Hold Instructions: Resume on 04/11/22. This evening Rx Instructions: must administer with evening meal zolpidem 10 mg tablet 10 mg PO BEDTIME Qty: 30 0RF hydrocodone-acetaminophen 10-325 mg tablet 1 tab PO Q8H PRN (Reason: Pain) 30 Days Qty: 90 0RF montelukast 10 mg tablet 10 mg PO BEDTIME Qty: 30 0RF Rx Instructions: 340 B sennosides-docusate sodium [Stool Softener-Laxative] 8.6-50 mg Tablet 1 tab PO BID Qty: 60 0RF lactulose 10 gram/15 mL solution 10 g PO DAILY PRN (Reason: constipation) Qty: 237 0RF alprazolam 1 mg Tablet 0.5 mg PO BID 14 Days Qty: 14 0RF rosuvastatin 20 mg Tablet 20 mg PO DAILY 30 Days Qty: 30 0RF pantoprazole 40 mg tablet,delayed release (DR/EC) 40 mg PO DAILY Qty: 30 0RF Rx Instructions: 340 B albuterol sulfate 2.5 mg /3 mL (0.083 %) Solution For Nebulization 2.5 mg INHALATION Q4H PRN (Reason: Shortness Of Breath) albuterol sulfate 90 mcg/actuation Hfa Aerosol Inhaler 1 puff INHALATION QID PRN (Reason: Shortness Of Breath) diltiazem HCl [Cardizem LA] 240 mg tablet extended release 24 hr 240 mg PO DAILY Qty: 90 2RF promethazine 6.25 mg/5 mL Syrup 6.25 mg PO QID PRN (Reason: Cough) Anoro Ellipta 62.5-25 mcg/actuation blister with device 1 inh INHALATION BID dofetilide 125 mcg capsule 250 mcg PO BID 30 Days Qty: 120 3RF potassium chloride 20 mEq tablet extended release 40 meq PO DAILY Qty: 30 0RF Rx Instructions: 340 B guaifenesin 400 mg tablet 400 mg PO TID PRN (Reason: Congestion) cholecalciferol (vitamin D3) [Vitamin D3] 25 mcg (1,000 unit) Tablet 25 mcg PO DAILY diltiazem HCl 30 mg tablet 30 mg PO Q8H PRN (Reason: Blood Pressure) Qty: 60 0RF Rx Instructions: TAKE IF BP OVER 110 340 B Discharge Orders: Discharge ED (Routine); Ordered 05/20/22 Ordered By: Anthony Buckner Referrals: Ava Fernandez DO [Primary Care Provider] - Patient Instructions: Pneumonia (ED), Opioid Safety, Pain Management Activity Restrictions/Additional Instructions: Use your nebulizer/inhaler every 4 hours while awake for the next 48 hours, then as needed following that. Monitor for fevers. Antibiotic as directed. See your doctor next week and follow-up. Return for worsening pain despite treatment, fever despite 3-4 doses of antibiotics, worsening shortness of breath despite treatment, other concerning symptoms. Coding Level of Care Code ED Emergency Medicine Specialist for Emely Silva
== END 2022-05-20 22:15 | disposition home or self-care (01) ==
PROVIDERS: Emergency Medicine; Emergency Provider Emergency Medicine; PCP Family Medicine
DX: J44.0 Chronic obstructive pulmonary disease with (acute) lower respiratory infection (principal); J18.9 Pneumonia, unspecified organism; I13.0 Hypertensive heart and chronic kidney disease with heart failure and stage 1 through stage 4 chronic kidney disease, or unspecified chronic kidney disease; E11.22 Type 2 diabetes mellitus with diabetic chronic kidney disease; N18.9 Chronic kidney disease, unspecified; I50.31 Acute diastolic (congestive) heart failure; Z85.3 Personal history of malignant neoplasm of breast; F17.210 Nicotine dependence, cigarettes, uncomplicated
CPT/HCPCS: 71045; 80053; 83880; 85025; 99284

== ENCOUNTER 2022-05-25 17:05 | Emergency (ER) | payer MEDICARE, BC, SELFPAY ==
[2022-05-25] VITALS (48 sets, daily range): BP systolic 82–144; BP diastolic 47–97; PULSE 62–129; RESP 11–24; TEMP 37–37.8; O2SAT 98; BMI 34.7
--- NOTE | 2022-05-25 17:48 | ECG_ITS ---
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 Measurements Intervals [place] Rate: 100 P: 0 VT: 0 QRS: 29 QRSD: 90 T: 53 QT: 390 QTc: 504 Interpretive Statements ATRIAL FIBRILLATION WITH RAPID VENTRICULAR RESPONSE POSSIBLE ANTERIOR MYOCARDIAL INFARCTION , OF INDETERMINATE AGE [30 ms Q WAVE IN V3/V4, OR R < 0.2 mV IN V4] Compared to ECG 04/21/2022 11:52:28 Myocardial infarct finding now present Sinus rhythm no longer present First degree AV block no longer present T-wave abnormality no longer present Electronically Signed On 05-27-2022 16:38:00 PROGRAMMING MANAGER by Ayo Leal M.D. [email or web address]
--- NOTE | 2022-05-25 18:13 | PC.NURSE ---
assumed pt care @ 1800
--- NOTE | 2022-05-25 18:18 | XRR_ITS ---
PROCEDURE INFORMATION: Exam: XR Chest Exam date and time: 05/25/2022 6:24 PM Age: 71 years old Clinical indication: Shortness of breath; Additional info: SOB TECHNIQUE: Imaging protocol: Radiologic exam of the chest. Views: 1 view. COMPARISON: CR (CHEST, ) 05/20/2022 8:00 PM FINDINGS: Lungs: No consolidation. Pleural spaces: Bilateral costophrenic blunting. No pneumothorax. Heart/Mediastinum: Similar moderate cardiomegaly. Bones/joints: Visualized osseous structures are intact. Soft tissues: Right axillary clips noted. XR/XR chest 1V portable [id number] IMPRESSION: Bilateral costophrenic blunting which may reflect small volume pleural effusions.
--- NOTE | 2022-05-25 18:34 | W.ED.CHESTPA ---
HPI - Chest Pain General: Chief Complaint: Chest Pain Stated Complaint: afib, n/v, chills Time Seen by Provider: 05/25/22 17:33 Source: patient Mode of arrival: ambulatory Limitations: no limitations History of Present Illness: 71-year-old female is very well-known to the ER states she was diagnosed with pneumonia 2 days ago states she has had increasing cough she is also had fever she does have a long history of A. fib states her heart rates been increased causing her some chest pain her heart rate here is 105 she wears 2 L of oxygen at home he is 96% on that. Associated symptoms: Reports fever(s) and palpitations; Deny abdominal pain, nausea or vomiting Review of Systems Const: Reports: fever(s) and chills Eyes: Denies: blurry vision or eye discomfort ENMT: Denies: throat pain or dental pain Card: Reports: chest pain and palpitations Resp: Reports: non-productive cough GI: Denies: abdominal pain, nausea, vomiting or diarrhea : Denies: dysuria Musc: Denies: neck pain or back pain Skin/Breast: Denies: rash Neuro: Denies: headache(s) Psych: Denies: depression Mahesh/Lymph: Denies: easy bruising All/Imm: Denies: urticaria PFSH ED PFSH: Medical History Abdominal pain Acute diastolic heart failure Acute kidney injury superimposed on CKD HERBER (acute kidney injury) Atrial fibrillation Atrial fibrillation Atrial fibrillation with rapid ventricular response Atrial fibrillation with RVR Chronic anticoagulation Chronic kidney disease COPD (chronic obstructive pulmonary disease) Dehydration Fatigue Generalized weakness GERD (gastroesophageal reflux disease) History of breast cancer History of syncope HTN (hypertension) with goal to be determined Hypokalemia Pneumonia Right heart failure Sinus node dysfunction T2DM (type 2 diabetes mellitus) Volume overload Surgical History History of knee replacement History of radical hysterectomy Hx of cholecystectomy Family History Mother , at age 62 Cancer Cervical Emphysema lung Father , at age 64 Black lung disease Social History Smoking and tobacco status: current every day smoker Alcohol intake: never Household members: spouse Marital status: / Current occupational status: retired History of recent travel: No Physical Exam Const: COMMON NORMALS: patient oriented x3 HENMT: COMMON NORMALS: normocephalic and atraumatic HEAD & SCALP: normocephalic and atraumatic Eye: COMMON NORMALS: Equal, round and reactive pupils present and EOMs intact bilaterally PUPIL: Yes Equal, round and reactive pupils present Neck/C-Spine: COMMON NORMALS: full ROM and supple Chest: COMMONS NORMALS: normal inspection of the chest and normal palpation of entire chest wall Resp: COMMON NORMALS: normal respiratory effort, No retractions, No use of accessory muscles and clear to auscultation bilaterally AUSCULTATION: clear to auscultation bilaterally Cardio: COMMON NORMALS: regular rate and No murmurs present (Cardio) RATE: regular rate RHYTHM: abnormal rhythm irregularly irregular GI: COMMON NORMALS: Normal to inspection, nondistended, normoactive bowel sounds present, Soft to palpation, non-tender and no masses PALPATION: Yes Soft to palpation Extremity: COMMON NORMALS: normal to inspection and full ROM Neuro: COMMON NORMALS: patient oriented x3, moves all extremities and no focal motor deficits Psych: COMMON NORMALS: mental status grossly normal, Normal thought process present and cooperative THOUGHT PROCESS: Normal thought process present Skin: COMMON NORMALS: no rashes or lesions noted and no wounds GENERAL SKIN EXAM: no rashes or lesions noted Course Vital Signs: Vital signs: Vital Signs Temperature 98.6 F 05/25/22 20:59 Pulse Rate 92 05/25/22 21:20 Respiratory Rate 14 05/25/22 21:20 Blood Pressure 97/53 05/25/22 21:20 Pulse Oximetry 98 05/25/22 17:13 Oxygen Delivery Me thod 05/25/22 17:13 Oxygen Flow Rate 3 05/25/22 17:13 MDM - Chest Pain Medical Decision Making Patient presents for chest pain with A. fib her A. fib is much improved heart rate now is in the 60s x-ray here is normal she feels improved I feel she is stable for discharge she is to follow-up with PCP and return if worsening she understands agrees to plan. Lab Data 05/25/22 19:20 05/25/22 19:20 Radiology Impressions Chest X-Ray 05/25/22 18:18 IMPRESSION: Bilateral costophrenic blunting which may reflect small volume pleural effusions. Laboratory Results WBC 6.3 10^3/uL (4.0-10.0) 05/25/22 19:20 RBC 4.33 10^6/uL (4.1-5.3) 05/25/22 19:20 Hgb 12.9 g/dL (11.5-15.3) 05/25/22 19:20 Hct 41.6 % (37.0-47.0) 05/25/22 19:20 MCV 96.1 fl (81-99) 05/25/22 19:20 MCH 29.8 pg (28.0-34.0) 05/25/22 19:20 MCHC 31.0 g/dL (30.0-36.0) 05/25/22 19:20 RDW 13.2 % (12.1-15.1) 05/25/22 19:20 Plt Count 336 10^3/cmm (130-400) 05/25/22 19:20 MPV 9.3 fL (7.4-10.4) 05/25/22 19:20 Neut % (Auto) 62.5 % 05/25/22 19:20 Lymph % (Auto) 20.0 % 05/25/22 19:20 [place] % (Auto) 16.1 % 05/25/22 19:20 Eos % (Auto) 0.6 % 05/25/22 19:20 Baso % (Auto) 0.5 % 05/25/22 19:20 Neut # (Auto) 3.91 10^3/uL (1.8-7.7) 05/25/22 19:20 Lymph # (Auto) 1.3 10^3/uL (0.8-4.8) 05/25/22 19:20 [place] # (Auto) 1.0 10^3/uL (0.2-0.9) H 05/25/22 19:20 Eos # (Auto) 0.0 10^3/uL (0.0-0.8) 05/25/22 19:20 Baso # (Auto) 0.0 10^3/uL (0.0-0.1) 05/25/22 19:20 Nucleated RBC % (auto) 0 % 05/25/22 19:20 Nucleated RBCs # 0.0 /100WBC 05/25/22 19:20 PT 12.60 SECONDS (12.1-14.9) 05/25/22 19:20 INR 0.92 (0.8-1.2) 05/25/22 19:20 Sodium 139 mmol/L (136-145) 05/25/22 19:20 Potassium 3.8 mmol/L (3.5-5.1) 05/25/22 19:20 Chloride 101 mmol/L (98-107) 05/25/22 19:20 Carbon Dioxide 29 mmol/L (22-29) 05/25/22 19:20 Anion Gap 12.8 (5-19) 05/25/22 19:20 BUN 8 mg/dL (8-23) 05/25/22 19:20 Creatinine 1.0 mg/dL (0.5-0.9) H 05/25/22 19:20 GFR Calculation Not Reportable 05/25/22 19:20 Glucose 107 mg/dL (65-115) 05/25/22 19:20 Calculated Osmolality 287 mOsm/kg (285-295) 05/25/22 19:20 Calcium 9.8 mg/dL (8.5-10.5) 05/25/22 19:20 Total Bilirubin 0.2 mg/dL (0.15-1.2) 05/25/22 19:20 AST 22 U/L (0-32) 05/25/22 19:20 ALT 6 U/L (0-33) 05/25/22 19:20 Alkaline Phosphatase 115 U/L (35-105) H 05/25/22 19:20 Troponin T Baseline 38 ng/L (0-10) H 05/25/22 19:20 Troponin T 120 Minute 34.23 ng/L (0-10) H 05/25/22 20:57 Delta Troponin T -3.77 ABS# (0-10) L 05/25/22 20:57 NT-Pro-B Natriuret Pep 3749 pg/mL (0-125) H 05/25/22 19:20 Total Protein 6.0 g/dL (6.6-8.7) L 05/25/22 19:20 Albumin 3.4 g/dL (3.5-5.2) L 05/25/22 19:20 Globulin 2.6 g/dL (1.3-4.6) 05/25/22 19:20 Influenza Type A Ag negative (Negative) 05/25/22 19:30 Influenza Type B Ag negative (Negative) 05/25/22 19:30 SARS-CoV-2 Ag (Rapid) negative (Negative) 05/25/22 19:30 EKG Data EKG 1: I personally reviewed and interpreted this EKG as follows: EKG interpretation date: 05/25/22 EKG interpretation time: 17:48 Interpretation: afib hr [address] or t wave abnormalities qrs 90 qtc 447 Discharge Plan Discharge Patient Disposition: Home Clinical Impression: Chest pain, Atrial fibrillation with rapid ventricular response Condition: Stable Prescriptions: New ondansetron 4 mg tablet,disintegrating 4 mg PO Q6H PRN (Reason: nausea and vomiting) Qty: 14 0RF No Action furosemide [Lasix] 40 mg tablet 40 mg PO BID 30 Days Qty: 60 0RF Rx Instructions: 340 B metoprolol tartrate 25 mg tablet 12.5 mg PO BID Qty: 90 3RF magnesium L-lactate [Magtab] 84 mg tablet extended release 84 mg PO BID Qty: 180 3RF Xarelto 15 mg tablet 15 mg PO DAILY Qty: 30 2RF Hold Instructions: Resume on 04/11/22. This evening Rx Instructions: must administer with evening meal hydrocodone-acetaminophen 10-325 mg tablet 1 tab PO Q8H PRN (Reason: Pain) 30 Days Qty: 90 0RF montelukast 10 mg tablet 10 mg PO BEDTIME Qty: 30 0RF Rx Instructions: 340 B zolpidem 10 mg tablet 10 mg PO BEDTIME Qty: 30 1RF sennosides-docusate sodium [Stool Softener-Laxative] 8.6-50 mg Tablet 1 tab PO BID Qty: 60 0RF lactulose 10 gram/15 mL solution 10 g PO DAILY PRN (Reason: constipation) Qty: 237 0RF alprazolam 1 mg Tablet 0.5 mg PO BID 14 Days Qty: 14 0RF rosuvastatin 20 mg Tablet 20 mg PO DAILY 30 Days Qty: 30 0RF pantoprazole 40 mg tablet,delayed release (DR/EC) 40 mg PO DAILY Qty: 30 0RF Rx Instructions: 340 B albuterol sulfate 2.5 mg /3 mL (0.083 %) Solution For Nebulization 2.5 mg INHALATION Q4H PRN (Reason: Shortness Of Breath) albuterol sulfate 90 mcg/actuation Hfa Aerosol Inhaler 1 puff INHALATION QID PRN (Reason: Shortness Of Breath) diltiazem HCl [Cardizem LA] 240 mg tablet extended release 24 hr 240 mg PO DAILY Qty: 90 2RF promethazine 6.25 mg/5 mL Syrup 6.25 mg PO QID PRN (Reason: Cough) Anoro Ellipta 62.5-25 mcg/actuation blister with device 1 inh INHALATION BID dofetilide 125 mcg capsule 250 mcg PO BID 30 Days Qty: 120 3RF potassium chloride 20 mEq tablet extended release 40 meq PO DAILY Qty: 30 0RF Rx Instructions: 340 B guaifenesin 400 mg tablet 400 mg PO TID PRN (Reason: Congestion) cholecalciferol (vitamin D3) [Vitamin D3] 25 mcg (1,000 unit) Tablet 25 mcg PO DAILY diltiazem HCl 30 mg tablet 30 mg PO Q8H PRN (Reason: Blood Pressure) Qty: 60 0RF Rx Instructions: TAKE IF BP OVER 110 340 B doxycycline hyclate 100 mg capsule 100 mg PO BID 10 Days Qty: 20 0RF Discharge Orders: Discharge ED (Routine); Ordered 05/25/22 Ordered By: Roya Bautista Referrals: Ava Fernandez DO [Primary Care Provider] - 1-3 days Discharge Diet: Advance as tolerated Discharge Activity: Resume usual activity Patient Instructions: A-fib (Atrial Fibrillation) (ED), Chest Pain (ED) Coding Level of Care Code ED Semiautomatic Taper Operator for Chg Fwd Exam Comprehensive
[2022-05-25] MEDS: ondansetron 2 mg/ML SDV 2 mL 4 MG IVP ×2 (19:28→21:55)
[2022-05-25 19:30] LABS: Basophils % 0.5 %; Eosinophils % 0.6 %; Hematocrit 41.6 % (37.0-47.0); Hemoglobin 12.9 g/dL (11.5-15.3); Lymphocytes # 1.3 10^3/uL (0.8-4.8); Mean Corpuscular Hemoglobin 29.8 pg (28.0-34.0); Mean Corpuscular Volume 96.1 fl (81-99); Mean Platelet Volume 9.3 fL (7.4-10.4); Monocytes % 16.1 %; Neutrophils # 3.91 10^3/uL (1.8-7.7); Neutrophils % 62.5 %; Nucleated Red Blood Cells % 0 %; Platelet Count 336 10^3/cmm (130-400); Red Blood Count 4.33 10^6/uL (4.1-5.3); Red Cell Distribution Width 13.2 % (12.1-15.1); White Blood Count 6.3 10^3/uL (4.0-10.0)
[2022-05-25 19:41] LABS: INR 0.92 (0.8-1.2)
[2022-05-25 19:55] LABS: Troponin(5th) Baseline 38 ng/L (0-10)
[2022-05-25 20:02] LABS: Alanine Aminotransferase 6 U/L (0-33); Albumin Level 3.4 g/dL (3.5-5.2); Alkaline Phosphatase 115 U/L (35-105); Anion Gap 12.8 (5-19); Aspartate Amino Transferase 22 U/L (0-32); Blood Urea Nitrogen 8 mg/dL (8-23); Calcium 9.8 mg/dL (8.5-10.5); Carbon Dioxide 29 mmol/L (22-29); Chloride 101 mmol/L (98-107); Globulin 2.6 g/dL (1.3-4.6); Glucose 107 mg/dL (65-115); NT Pro B Type Natriuretic Pept 3749 pg/mL (0-125); Osmolality Calculated 287 mOsm/kg (285-295); Potassium 3.8 mmol/L (3.5-5.1); Sodium 139 mmol/L (136-145); Total Bilirubin 0.2 mg/dL (0.15-1.2)
[2022-05-25 20:03] LABS: Influenza A by IFA negative (Negative); Influenza B by IFA negative (Negative); SARS Covid-2 Antigen negative (Negative)
[2022-05-25] MEDS: sodium chloride 0.9% 1,000 ML 999 ML IV (20:09)
--- NOTE | 2022-05-25 20:19 | ECG_ITS ---
[facility] Test Date: 2022-05-25 Pat Name: Rebeca Álvarez Department: Room: Gender: Female Biological Inspector: : 1950 Requested By: Roya Bautista Order Number: [id number] Reading MD: Ayo Leal M.D. Measurements Intervals [place] Rate: 93 P: 0 CA: 0 QRS: 25 QRSD: 89 T: 37 QT: 405 QTc: 504 Interpretive Statements ATRIAL FIBRILLATION LOW QRS VOLTAGE IN PRECORDIAL LEADS [QRS DEFLECTION < 1.0 mV IN CHEST LEADS] POSSIBLE ANTERIOR MYOCARDIAL INFARCTION , OF INDETERMINATE AGE [30 ms Q WAVE IN V3/V4, OR R < 0.2 mV IN V4] Compared to ECG 05/25/2022 17:48:16 Low QRS voltage now present Myocardial infarct finding still present Electronically Signed On 05-27-2022 16:44:05 OUTPATIENT PROGRAM COORDINATOR by Ayo Leal M.D. [id number]
[2022-05-25 21:37] LABS: Troponin 5 2HR 34.23 ng/L (0-10)
[2022-05-25 21:50] LABS: Troponin 5 2HR Delta -3.77 ABS# (0-10)
== END 2022-05-25 22:07 | disposition home or self-care (01) ==
PROVIDERS: Emergency Provider Emergency Medicine; PCP Family Medicine
DX: R07.9 Chest pain, unspecified (principal); I48.20 Chronic atrial fibrillation, unspecified; Z20.822 Contact with and (suspected) exposure to COVID-19; F17.210 Nicotine dependence, cigarettes, uncomplicated; I13.0 Hypertensive heart and chronic kidney disease with heart failure and stage 1 through stage 4 chronic kidney disease, or unspecified chronic kidney disease; E11.22 Type 2 diabetes mellitus with diabetic chronic kidney disease; N18.9 Chronic kidney disease, unspecified; I50.9 Heart failure, unspecified; J44.9 Chronic obstructive pulmonary disease, unspecified; Z85.3 Personal history of malignant neoplasm of breast
CPT/HCPCS: 71045; 80053; 83880; 84484; 85025; 85610; 87426; 87804; 93005; 96374; 96375; 99285; J2405; J7030

== ENCOUNTER 2022-06-14 18:54 | Emergency (ER) | payer MEDICARE, BC, SELFPAY ==
--- NOTE | 2022-06-14 19:05 | XRR_ITS ---
PROCEDURE INFORMATION: Exam: XR Chest Exam date and time: 06/14/2022 7:10 PM Age: 71 years old Clinical indication: Chest wall pain; Additional info: Cp TECHNIQUE: Imaging protocol: Radiologic exam of the chest. Views: 1 view. COMPARISON: CR (CHEST, ) 05/25/2022 6:24 PM FINDINGS: Lungs: No consolidation. Pleural spaces: No pleural effusion. No pneumothorax. Heart/Mediastinum: Stable cardiomegaly. Bones/joints: Visualized osseous structures are intact. XR/XR chest 1V portable [id number] IMPRESSION: No acute findings.
--- NOTE | 2022-06-14 19:11 | W.ED.ABDPA2 ---
HPI - Abdominal Pain General: Chief Complaint: Chest Pain Stated Complaint: CHEST/ ABDOMINAL PAIN Time Seen by Provider: 06/14/22 19:06 Source: patient and EMS Mode of arrival: EMS Limitations: no limitations History of Present Illness: 71-year-old female well-known to ER she states that she had COVID couple weeks ago was admitted at [facility] for 5 days states she was discharged roughly a week ago states that she has not been feeling well since then she states she has been having chest pain abdominal pain a lot of nausea states that today the nausea and abdominal pain got worse with some weakness denies any cough shortness of breath she is on 3 L chronically her pulse ox 98% here. Denies any fevers. Associated Symptoms: Denies chills, dysuria and fever(s) Review of Systems Const: Denies: fever(s), chills, body aches or change in appetite Eyes: Denies: blurry vision or eye discomfort ENMT: Denies: throat pain or dental pain Card: Reports: chest pain Resp: Denies: dyspnea GI: Reports: abdominal pain : Denies: dysuria Musc: Denies: neck pain or back pain Skin/Breast: Denies: rash Neuro: Denies: headache(s) Psych: Denies: depression Mahesh/Lymph: Denies: easy bruising All/Imm: Denies: urticaria PFSH ED PFSH: Medical History Abdominal pain Acute diastolic heart failure Acute kidney injury superimposed on CKD HERBER (acute kidney injury) Atrial fibrillation Atrial fibrillation Atrial fibrillation with rapid ventricular response Atrial fibrillation with RVR Chronic anticoagulation Chronic kidney disease COPD (chronic obstructive pulmonary disease) Dehydration Fatigue Generalized weakness GERD (gastroesophageal reflux disease) History of breast cancer History of syncope HTN (hypertension) with goal to be determined Hypokalemia Pneumonia Right heart failure Sinus node dysfunction T2DM (type 2 diabetes mellitus) Volume overload Surgical History History of knee replacement History of radical hysterectomy Hx of cholecystectomy Family History Mother , at age 62 Cancer Cervical Emphysema lung Father , at age 64 Black lung disease Social History Smoking and tobacco status: current every day smoker Alcohol intake: never Household members: spouse Marital status: / Current occupational status: retired History of recent travel: No Physical Exam Const: COMMON NORMALS: no acute distress, patient oriented x3 and healthy appearing HENMT: COMMON NORMALS: normocephalic and atraumatic HEAD & SCALP: normocephalic and atraumatic Eye: COMMON NORMALS: Equal, round and reactive pupils present and EOMs intact bilaterally PUPIL: Yes Equal, round and reactive pupils present Neck/C-Spine: COMMON NORMALS: full ROM and supple Chest: COMMONS NORMALS: normal inspection of the chest and normal palpation of entire chest wall Resp: COMMON NORMALS: normal respiratory effort, No retractions, No use of accessory muscles and clear to auscultation bilaterally AUSCULTATION: clear to auscultation bilaterally Cardio: COMMON NORMALS: regular rate, regular rhythm and No murmurs present (Cardio) RATE: regular rate RHYTHM: regular rhythm GI: COMMON NORMALS: Normal to inspection, nondistended, normoactive bowel sounds present, Soft to palpation, non-tender and no masses PALPATION: Yes Soft to palpation Extremity: COMMON NORMALS: normal to inspection and full ROM Neuro: COMMON NORMALS: patient oriented x3, moves all extremities and no focal motor deficits Psych: COMMON NORMALS: mental status grossly normal, Normal thought process present and cooperative THOUGHT PROCESS: Normal thought process present Skin: COMMON NORMALS: no rashes or lesions noted and no wounds GENERAL SKIN EXAM: no rashes or lesions noted Course Vital Signs: Vital signs: Vital Signs Temperature 98.1 F 06/14/22 19:33 Pulse Rate 83 06/14/22 23:05 Respiratory Rate 18 06/14/22 23:05 Blood Pressure 133/70 06/14/22 23:05 Pulse Oximetry 98 06/14/22 23:05 Oxygen Delivery Me thod 06/14/22 19:33 Oxygen Flow Rate 3 06/14/22 19:33 MDM - Abdominal Pain Medical Decision Making Patient presents for chest pain along with some abdominal pain she is post COVID CT scan here shows no acute abnormality besides a possible gastritis her blood work is normal mild leukocytosis she has no signs of any severe infection her abdominal exam at discharge is benign she is stable for discharge she is to follow-up with PCP we will place her on pain meds along with nausea meds. Lab Data 06/14/22 19:48 06/14/22 19:48 Labs/Radiology: Radiology Impressions Chest X-Ray 06/14/22 19:05 IMPRESSION: No acute findings. Chest/Abdomen/Pelvis CT 06/14/22 20:24 IMPRESSION: 1. No acute findings. 2. [id number] emphysematous changes of the lungs. IMPRESSION: No acute findings. Laboratory Results WBC 18.3 10^3/uL (4.0-10.0) H 06/14/22 19:48 RBC 5.02 10^6/uL (4.1-5.3) 06/14/22 19:48 Hgb 14.8 g/dL (11.5-15.3) 06/14/22 19:48 Hct 46.1 % (37.0-47.0) 06/14/22 19:48 MCV 91.8 fl (81-99) 06/14/22 19:48 MCH 29.5 pg (28.0-34.0) 06/14/22 19:48 MCHC 32.1 g/dL (30.0-36.0) 06/14/22 19:48 RDW 13.5 % (12.1-15.1) 06/14/22 19:48 Plt Count 394 10^3/cmm (130-400) 06/14/22 19:48 MPV 9.8 fL (7.4-10.4) 06/14/22 19:48 Neut % (Auto) 78.8 % 06/14/22 19:48 Lymph % (Auto) 11.2 % 06/14/22 19:48 [place] % (Auto) 8.3 % 06/14/22 19:48 Eos % (Auto) 0.6 % 06/14/22 19:48 Baso % (Auto) 0.2 % 06/14/22 19:48 Neut # (Auto) 14.39 10^3/uL (1.8-7.7) H 06/14/22 19:48 Lymph # (Auto) 2.1 10^3/uL (0.8-4.8) 06/14/22 19:48 [place] # (Auto) 1.5 10^3/uL (0.2-0.9) H 06/14/22 19:48 Eos # (Auto) 0.1 10^3/uL (0.0-0.8) 06/14/22 19:48 Baso # (Auto) 0.0 10^3/uL (0.0-0.1) 06/14/22 19:48 Nucleated RBC % (auto) 0 % 06/14/22 19:48 Nucleated RBCs # 0.0 /100WBC 06/14/22 19:48 Sodium 136 mmol/L (136-145) 06/14/22 19:48 Potassium 4.4 mmol/L (3.5-5.1) 06/14/22 19:48 Chloride 97 mmol/L (98-107) L 06/14/22 19:48 Carbon Dioxide 27 mmol/L (22-29) 06/14/22 19:48 Anion Gap 16.4 (5-19) 06/14/22 19:48 BUN 23 mg/dL (8-23) 06/14/22 19:48 Creatinine 1.0 mg/dL (0.5-0.9) H 06/14/22 19:48 GFR Calculation Not Reportable 06/14/22 19:48 Glucose 174 mg/dL (65-115) H 06/14/22 19:48 Calculated Osmolality 290 mOsm/kg (285-295) 06/14/22 19:48 Calcium 9.1 mg/dL (8.5-10.5) 06/14/22 19:48 Total Bilirubin 0.7 mg/dL (0.15-1.2) 06/14/22 19:48 AST 22 U/L (0-32) 06/14/22 19:48 ALT 11 U/L (0-33) 06/14/22 19:48 Alkaline Phosphatase 145 U/L (35-105) H 06/14/22 19:48 Troponin T Baseline 56 ng/L (0-10) H 06/14/22 19:48 Troponin T 120 Minute 60.04 ng/L (0-10) H 06/14/22 21:46 Delta Troponin T 4.04 ABS# (0-10) 06/14/22 21:46 Total Protein 5.9 g/dL (6.6-8.7) L 06/14/22 19:48 Albumin 3.9 g/dL (3.5-5.2) 06/14/22 19:48 Globulin 2.0 g/dL (1.3-4.6) 06/14/22 19:48 Lipase 26 U/L (13-60) 06/14/22 19:48 Urine Color Yellow (Yellow) 06/14/22 21:22 Urine Appearance Clear (CLEAR) 06/14/22 21:22 Urine pH 6.5 (5-7) 06/14/22 21:22 Ur Specific [place] 1.010 (1.005-1.030) 06/14/22 21:22 Urine Protein Neg (Negative) 06/14/22 21: Urine Glucose (UA) Norm (Normal) 06/14/22 21: Urine Ketones Negative (Negative) 06/14/22 21:22 Urine Blood Neg (Negative) 06/14/22 21: Urine Nitrate Negative (Negative) 06/14/22 21: Urine Bilirubin Neg (Negative) 06/14/22 21:22 Urine Urobilinogen Norm mg/dL (Negative) 06/14/22 21: Ur Leukocyte Esterase Negative (Negative) 06/14/22 21:22 EKG Data EKG 1: I personally reviewed and interpreted this EKG as follows: EKG interpretation date: 06/14/22 EKG interpretation time: 21:29 Interpretation: afib with rvr hr [address] or t wave abnormaliies qrs 87 qtc 427 Discharge Plan Discharge Patient Disposition: Home Clinical Impression: Chest pain Condition: Stable Prescriptions: New hydrocodone-acetaminophen 5-325 mg tablet 1 tab PO Q6H PRN (Reason: pain) Qty: 14 0RF ondansetron 4 mg tablet,disintegrating 4 mg PO Q6H PRN (Reason: nausea and vomiting) Qty: 14 0RF No Action furosemide [Lasix] 40 mg tablet 40 mg PO BID 30 Days Qty: 60 0RF Rx Instructions: 340 B metoprolol tartrate 25 mg tablet 12.5 mg PO BID Qty: 90 3RF magnesium L-lactate [Magtab] 84 mg tablet extended release 84 mg PO BID Qty: 180 3RF Xarelto 15 mg tablet 15 mg PO DAILY Qty: 30 2RF Hold Instructions: Resume on 04/11/22. This evening Rx Instructions: must administer with evening meal hydrocodone-acetaminophen 10-325 mg tablet 1 tab PO Q8H PRN (Reason: Pain) 30 Days Qty: 90 0RF montelukast 10 mg tablet 10 mg PO BEDTIME Qty: 30 0RF Rx Instructions: 340 B zolpidem 10 mg tablet 10 mg PO BEDTIME Qty: 30 1RF sennosides-docusate sodium [Stool Softener-Laxative] 8.6-50 mg Tablet 1 tab PO BID Qty: 60 0RF lactulose 10 gram/15 mL solution 10 g PO DAILY PRN (Reason: constipation) Qty: 237 0RF alprazolam 1 mg Tablet 0.5 mg PO BID 14 Days Qty: 14 0RF rosuvastatin 20 mg Tablet 20 mg PO DAILY 30 Days Qty: 30 0RF pantoprazole 40 mg tablet,delayed release (DR/EC) 40 mg PO DAILY Qty: 30 0RF Rx Instructions: 340 B albuterol sulfate 2.5 mg /3 mL (0.083 %) Solution For Nebulization 2.5 mg INHALATION Q4H PRN (Reason: Shortness Of Breath) albuterol sulfate 90 mcg/actuation Hfa Aerosol Inhaler 1 puff INHALATION QID PRN (Reason: Shortness Of Breath) diltiazem HCl [Cardizem LA] 240 mg tablet extended release 24 hr 240 mg PO DAILY Qty: 90 2RF promethazine 6.25 mg/5 mL Syrup 6.25 mg PO QID PRN (Reason: Cough) Anoro Ellipta 62.5-25 mcg/actuation blister with device 1 inh INHALATION BID dofetilide 125 mcg capsule 250 mcg PO BID 30 Days Qty: 120 3RF potassium chloride 20 mEq tablet extended release 40 meq PO DAILY Qty: 30 0RF Rx Instructions: 340 B guaifenesin 400 mg tablet 400 mg PO TID PRN (Reason: Congestion) cholecalciferol (vitamin D3) [Vitamin D3] 25 mcg (1,000 unit) Tablet 25 mcg PO DAILY diltiazem HCl 30 mg tablet 30 mg PO Q8H PRN (Reason: Blood Pressure) Qty: 60 0RF Rx Instructions: TAKE IF BP OVER 110 340 B ondansetron 4 mg tablet,disintegrating 4 mg PO Q6H PRN (Reason: nausea and vomiting) Qty: 14 0RF Discharge Orders: Discharge ED (Routine); Ordered 06/14/22 Ordered By: Roya Bautista Referrals: Ava Fernandez DO [Primary Care Provider] - 1-3 days Discharge Diet: Advance as tolerated Discharge Activity: Resume usual activity Patient Instructions: Chest Pain (ED), Opioid Safety Coding Level of Care Code ED Chief Knowledge Officer for Chg Fwd Exam Comprehensive
--- NOTE | 2022-06-14 19:14 | ECG_ITS ---
[facility] Test Date: 2022-06-14 Pat Name: Rebeca Álvarez Department: Room: Gender: Female Supervisor Welding Equipment Repairer: : 1950 Requested By: Roya Bautista Order Number: [id number] Mohamud MD: Massiel Cabezas M.D. Measurements Intervals [place] Rate: 115 P: 0 LA: 0 QRS: 77 QRSD: 84 T: 77 QT: 343 QTc: 475 Interpretive Statements ATRIAL FIBRILLATION WITH RAPID VENTRICULAR RESPONSE MODERATE ST DEPRESSION [0.05+ mV ST DEPRESSION] Compared to ECG 05/25/2022 20:26:43 ST (T wave) deviation now present Myocardial infarct finding no longer present Electronically Signed On 06-15-2022 21:02:19 CHARGE ACCOUNTS AUDIT CLERK by Massiel Cabezas M.D. [id number] [email or web address]
[2022-06-14 19:33] VITALS: BP 109/59; PULSE 85; RESP 15; TEMP 36.7; O2SAT 99; BMI 32.3
[2022-06-14 19:52] LABS: Basophils % 0.2 %; Eosinophils # 0.1 10^3/uL (0.0-0.8); Eosinophils % 0.6 %; Hematocrit 46.1 % (37.0-47.0); Hemoglobin 14.8 g/dL (11.5-15.3); Lymphocytes # 2.1 10^3/uL (0.8-4.8); Lymphocytes % 11.2 %; Mean Corpuscular HGB Conc 32.1 g/dL (30.0-36.0); Mean Corpuscular Hemoglobin 29.5 pg (28.0-34.0); Mean Corpuscular Volume 91.8 fl (81-99); Mean Platelet Volume 9.8 fL (7.4-10.4); Monocytes # 1.5 10^3/uL (0.2-0.9); Monocytes % 8.3 %; Neutrophils # 14.39 10^3/uL (1.8-7.7); Neutrophils % 78.8 %; Nucleated Red Blood Cells % 0 %; Platelet Count 394 10^3/cmm (130-400); Red Blood Count 5.02 10^6/uL (4.1-5.3); Red Cell Distribution Width 13.5 % (12.1-15.1); White Blood Count 18.3 10^3/uL (4.0-10.0)
[2022-06-14] MEDS: ondansetron 2 mg/ML SDV 2 mL 4 MG IVP (19:52)
[2022-06-14] MEDS: sodium chloride 0.9% 500 ML 999 ML IV ×2 (19:52→22:17)
[2022-06-14 20:17] LABS: Troponin(5th) Baseline 56 ng/L (0-10)
--- NOTE | 2022-06-14 20:24 | CTR_ITS ---
PROCEDURE INFORMATION: Exam: CTA Chest With Contrast Exam date and time: 06/14/2022 8:32 PM Age: 71 years old Clinical indication: Other: N/a; Abdominal pain; Generalized; Shortness of breath; Sternal or substernal pain; Prior surgery; Surgery type: Lumpectomy. Gb. Hysterectomy. Patient HX: C/O substernal chest pain with SOB. Difuse abd pain. Elevated troponin. History of copd and breast cancer. TECHNIQUE: Imaging protocol: Computed tomographic angiography of the chest with contrast. 3D rendering (Not supervised by radiologist): MIP and/or 3D reconstructed images were created by the technologist. Radiation optimization: All CT scans at this facility use at least one of these dose optimization techniques: automated exposure control; mA and/or kV adjustment per patient size (includes targeted exams where dose is matched to clinical indication); or iterative reconstruction. Contrast material: OMNI 350; Contrast volume: 100 ml; Contrast route: INTRAVENOUS (IV); COMPARISON: CT angio chest PE protcl [id number] 01/30/2022 2:46 AM RADIATION DOSE METRICS: Total DLP (mGy-cm): 1123.23 FINDINGS: Pulmonary arteries: Normal. No pulmonary emboli. Aorta: No aortic aneurysm. No aortic dissection. Lungs: Agod-ks-spuoxnmk centrilobular emphysematous changes of the lungs. No consolidation. No masses. Pleural spaces: No pneumothorax. No pleural effusion. Heart: Cardiomegaly. No pericardial effusion. Lymph nodes: No enlarged lymph nodes. Bones/joints: No acute fracture. Soft tissues: Right breast surgical clips noted. PROCEDURE INFORMATION: Exam: CT Abdomen And Pelvis With Contrast Exam date and time: 06/14/2022 8:32 PM Age: 71 years old Clinical indication: Other: N/a; Abdominal pain; Generalized; Shortness of breath; Sternal or substernal pain; Prior surgery; Surgery type: Lumpectomy. Gb. Hysterectomy. Patient HX: C/O substernal chest pain with SOB. Difuse abd pain. Elevated troponin. History of copd and breast cancer. TECHNIQUE: Imaging protocol: Computed tomography of the abdomen and pelvis with contrast. Radiation optimization: All CT scans at this facility use at least one of these dose optimization techniques: automated exposure control; mA and/or kV adjustment per patient size (includes targeted exams where dose is matched to clinical indication); or iterative reconstruction. Contrast material: OMNI 350; Contrast volume: 100 ml; Contrast route: INTRAVENOUS (IV); COMPARISON: CT abdomen pelvis w con* [id number] 03/13/2022 5:53 PM RADIATION DOSE METRICS: Total DLP (mGy-cm): 1123.23 FINDINGS: Liver: Normal. No mass. Gallbladder and bile ducts: Cholecystectomy. Dilation of the common bile duct up to 1.7 cm and mild dilation of the intrahepatic biliary system, likely reflecting reservoir effect from prior cholecystectomy. Pancreas: Normal. No ductal dilation. Spleen: Normal. No splenomegaly. Adrenal glands: Normal. No mass. Kidneys and ureters: Right sided nephrectomy. No hydronephrosis. Stomach and bowel: Colonic diverticulosis. No obstruction. No mucosal thickening. Appendix: No evidence of appendicitis. Intraperitoneal space: No free air. No significant fluid collection. Vasculature: No abdominal aortic aneurysm. Lymph nodes: No enlarged lymph nodes. Urinary bladder: Unremarkable as visualized. Reproductive: Unremarkable as visualized. Bones/joints: No acute fracture. Soft tissues: Unremarkable. CT/CT angio chest w abd pel w con IMPRESSION: 1. No acute findings. 2. Xgar-si-lytlhyvf emphysematous changes of the lungs. IMPRESSION: No acute findings.
[2022-06-14 20:27] LABS: Alanine Aminotransferase 11 U/L (0-33); Albumin Level 3.9 g/dL (3.5-5.2); Alkaline Phosphatase 145 U/L (35-105); Blood Urea Nitrogen 23 mg/dL (8-23); Calcium 9.1 mg/dL (8.5-10.5); Carbon Dioxide 27 mmol/L (22-29); Chloride 97 mmol/L (98-107); Glucose 174 mg/dL (65-115); Lipase 26 U/L (13-60); Osmolality Calculated 290 mOsm/kg (285-295); Sodium 136 mmol/L (136-145); Total Bilirubin 0.7 mg/dL (0.15-1.2); Total Protein 5.9 g/dL (6.6-8.7)
[2022-06-14 20:32] LABS: Anion Gap 16.4 (5-19); Aspartate Amino Transferase 22 U/L (0-32); Potassium 4.4 mmol/L (3.5-5.1)
[2022-06-14] MEDS: iohexol 350 mg/mL 500 mL Btl (per mL) IV (20:35)
--- NOTE | 2022-06-14 21:29 | ECG_ITS ---
[facility] Test Date: 2022-06-14 Pat Name: Rebeca Álvarez Department: Room: Gender: Female Configuration Consultant: : 1950 Requested By: Roya Bautista Order Number: [id number] Mohamud MD: Massiel Cabezas M.D. Measurements Intervals [place] Rate: 106 P: 0 VA: 0 QRS: 46 QRSD: 87 T: 72 QT: 365 QTc: 486 Interpretive Statements ATRIAL FIBRILLATION WITH RAPID VENTRICULAR RESPONSE ABNORMAL RHYTHM ECG Compared to ECG 05/25/2022 20:26:43 Myocardial infarct finding no longer present Electronically Signed On 06-15-2022 21:23:34 RADIOTELEGRAPHER by Massiel Cabezas M.D. [id number]
[2022-06-14 21:45] LABS: Add Urine Microscopic? NO; Charge for UA Resulting for Rev
[2022-06-14 22:06] LABS: Bilirubin Urine Neg (Negative); Blood Urine Neg (Negative); Glucose Urine UA Norm (Normal); Ketones Urine Negative (Negative); Leukocyte Esterase Urine Negative (Negative); Nitrate Urine Negative (Negative); Protein Urine Neg (Negative); Urine Appearance Clear (CLEAR); Urine Color Yellow (Yellow); Urobilinogen Urine Norm (Negative); pH Urine 6.5 (5-7)
[2022-06-14 22:12] LABS: Troponin 5 2HR 60.04 ng/L (0-10)
[2022-06-14] MEDS: dilTIAZem 5 mg/mL SDV 5 mL 10 MG IVP (22:17)
[2022-06-14 22:23] LABS: Troponin 5 2HR Delta 4.04 ABS# (0-10)
[2022-06-14 23:05] VITALS: BP 133/70; PULSE 83; RESP 18; O2SAT 98
== END 2022-06-14 23:46 | disposition home or self-care (01) ==
PROVIDERS: Emergency Provider Emergency Medicine; PCP Family Medicine
DX: R07.9 Chest pain, unspecified (principal); F17.210 Nicotine dependence, cigarettes, uncomplicated; I13.0 Hypertensive heart and chronic kidney disease with heart failure and stage 1 through stage 4 chronic kidney disease, or unspecified chronic kidney disease; E11.22 Type 2 diabetes mellitus with diabetic chronic kidney disease; N18.9 Chronic kidney disease, unspecified; I50.31 Acute diastolic (congestive) heart failure; J44.9 Chronic obstructive pulmonary disease, unspecified; Z85.3 Personal history of malignant neoplasm of breast
CPT/HCPCS: 71045; 71275; 74177; 80053; 81003; 83690; 84484; 85025; 93005; 96361; 96374; 96375; 99285; J2405; J3490; J7040; Q9967

== ENCOUNTER 2022-06-18 12:39 | Inpatient (IN) | payer MEDICARE, BC, SELFPAY ==
[2022-06-18] VITALS (32 sets, daily range): BP systolic 90–120; BP diastolic 56–72; PULSE 74–112; RESP 13–22; TEMP 36.6–37.1; O2SAT 2–100
--- NOTE | 2022-06-18 13:39 | PC.NURSE ---
WHILE IN LOBBY PT IS SITTING IN A CHAIR IN [facility].
--- NOTE | 2022-06-18 14:10 | W.ED.GIBLEED ---
HPI - GI Bleed General: Chief complaint: Abdominal Pain Stated complaint: possible afib and gi bleed Time Seen by Provider: 06/18/22 13:37 Source: patient and family Mode of arrival: ambulatory Limitations: no limitations History of Present Illness: This patient returns to our emergency department because of concerns about blood in her stools. She states that began yesterday and is continued throughout the night until today. She states she was up approximately 20 times over the night with the urge to defecate and each time she did so there was bright red blood in the stool with some clots. States there is no associated stool with the blood. She states that she gets a cramping sensation and then has the urge to pass blood. She was in this hospital 2 days ago for emergency department visit because of abdominal pain and chest pain and was evaluated at that time and discharged in a stable condition. She has a history of atrial fibrillation that she is known about for at least 5 years for which she takes Xarelto for stroke risk reduction.She denies chest pain, shortness of breath, palpitations, syncope etc. No other bleeding dyscrasias noted. MD complaint: gross hematochezia Context: anticoagulant use Associated symptoms: Reports abdominal pain, easy bruising and nausea; Denies chills, fever(s), headache(s), rash, syncope or vomiting Review of Systems Const: Denies: fever(s) or chills Eyes: Denies: change in vision ENMT: Denies: odynophagia, nasal discharge or nasal congestion Card: Denies: chest pain, palpitations, irregular heart rhythm, syncope or pre-syncope Resp: Denies: dyspnea, productive cough or non-productive cough GI: Reports: abdominal pain, nausea and hematochezia; Denies: vomiting, hematemesis or melena : Denies: flank pain, difficulty voiding, dysuria, urinary frequency, hematuria or vaginal bleeding Musc: Denies: neck pain, back pain, extremity pain or extremity swelling Skin/Breast: Denies: rash or pruritus Neuro: Denies: headache(s), numbness in extremities or weakness in extremities Mahesh/Lymph: Reports: easy bruising PFSH ED PFSH: Medical History Abdominal pain Acute diastolic heart failure Acute kidney injury superimposed on CKD HERBER (acute kidney injury) Atrial fibrillation Atrial fibrillation Atrial fibrillation with rapid ventricular response Atrial fibrillation with RVR Chronic anticoagulation Chronic kidney disease COPD (chronic obstructive pulmonary disease) Dehydration Fatigue Generalized weakness GERD (gastroesophageal reflux disease) History of breast cancer History of syncope HTN (hypertension) with goal to be determined Hypokalemia Pneumonia Right heart failure Sinus node dysfunction T2DM (type 2 diabetes mellitus) Volume overload Surgical History History of knee replacement History of radical hysterectomy Hx of cholecystectomy Family History Mother , at age 62 Cancer Cervical Emphysema lung Father , at age 64 Black lung disease Social History Smoking and tobacco status: current every day smoker Alcohol intake: never Household members: spouse Marital status: / Current occupational status: retired History of recent travel: No Physical Exam Narrative: EXAM NARRATIVE: Patient is alert and answers all questions in a goal-directed fashion. Appears to be comfortable. Const: COMMON NORMALS: no acute distress and patient oriented x3 GENERAL APPEARANCE: cooperative NUTRITIONAL APPEARANCE: overweight ORIENTATION/CONSCIOUSNESS: Yes awake HENMT: COMMON NORMALS: normocephalic, Normal nasal mucous membranes and turbinates present, moist oral mucous membranes and oropharynx normal HEAD & SCALP: normocephalic NOSE: Normal nasal mucous membranes and turbinates present Eye: COMMON NORMALS: Equal, round and reactive pupils present, EOMs intact bilaterally and conjunctivae normal CONJUNCTIVA: Yes conjunctivae normal PUPIL: Yes Equal, round and reactive pupils present Neck/C-Spine: COMMON NORMALS: full ROM, no lymphadenopathy and supple Chest: COMMONS NORMALS: normal inspection of the chest Resp: COMMON NORMALS: normal respiratory effort, No retractions, No use of accessory muscles and clear to auscultation bilaterally AUSCULTATION: clear to auscultation bilaterally Cardio: COMMON NORMALS: regular rate, regular rhythm, No murmurs present (Cardio) and Peripheral pulses 2+ throughout RATE: regular rate RHYTHM: regular rhythm PERIPHERAL PULSES: Peripheral pulses 2+ throughout GI: OTHER: She has tenderness to palpation particularly of the right lower and left lower quadrants. No rebound no guarding. No masses. No ecchymosis. No skin rashes. : COMMON NORMALS: Yes no CVA tenderness BLADDER/KIDNEY EXAM: Yes no CVA tenderness Back/Pelvis: COMMON NORMALS: no CVA tenderness, thoracic and lumbar spine normal to inspection, no thoracic nor lumbar tenderness and thoraco-lumbar ROM normal Extremity: COMMON NORMALS: normal to inspection, full ROM, capillary refill normal, no calf tenderness and no pedal edema Neuro: COMMON NORMALS: patient oriented x3, moves all extremities, no focal motor deficits and no sensory deficits noted CRANIAL NERVES: Yes CN normal except as noted Psych: COMMON NORMALS: mental status grossly normal Skin: COMMON NORMALS: no rashes or lesions noted, turgor normal and no petechiae GENERAL SKIN EXAM: no rashes or lesions noted and turgor normal Course Reevaluation(s): Reevaluation #1: I discussed current findings with the patient and the recommendation for inpatient care which she acknowledged and voiced understanding. She is currently clinically stable however because of her 50% drop in hemoglobin from her baseline in the gets reasonable for us to begin a unit of packed cells and that is not clear if she is equilibrated her blood loss. Time: 15:58 Consultations: Consultation #1: Discussed with Dr. Abreu hospitalist who agreed to the plan of care and admission. Time: 15:58 Vital Signs: Vital signs: Vital Signs Temperature 97.9 F 06/18/22 12:46 Pulse Rate 85 06/18/22 15:30 Respiratory Rate 19 H 06/18/22 15:30 Blood Pressure 90/62 06/18/22 15:30 Pulse Oximetry 96 06/18/22 15:25 MDM - GI Bleed Medical Decision Making This patient came to our emergency department because of concerns about rectal bleeding. She is on Xarelto for stroke risk for recent duction because of her chronic atrial fibrillation. Her evaluation in the emergency department was revealing and that she had a anemia as well as significant evidence of diverticulitis without any complications as likely etiology of her hematochezia. She is has been in normal sinus rhythm while in the emergency department which is to her benefit given that we are going to have to discontinue her Xarelto at this point because of her bleeding. Should be noted that she gave a history that she has had some bleeding issues in the past on anticoagulants as well. She is currently clinically stable however because of the significance of of her anemia I think it is reasonable for us to begin a single unit of packed cells as it is unclear if she is equilibrated her blood loss at this point in time. She will also be loaded with usual antibiotic choices for diverticulitis. This was reviewed with the patient who agreed with the plan of care. Medical Records I reviewed the patient's medical records. Lab Data I reviewed the patient's lab results. 06/18/22 14:40 06/18/22 14:40 Radiology Impressions Abdomen/Pelvis CT 06/18/22 14:16 IMPRESSION: Acute uncomplicated sigmoid diverticulitis. Laboratory Results WBC 14.4 10^3/uL (4.0-10.0) H 06/18/22 14:40 RBC 2.51 10^6/uL (4.1-5.3) L 06/18/22 14:40 Hgb 7.5 g/dL (11.5-15.3) L 06/18/22 14:40 Hct 24.1 % (37.0-47.0) L 06/18/22 14:40 MCV 96.0 fl (81-99) 06/18/22 14:40 MCH 29.9 pg (28.0-34.0) 06/18/22 14:40 MCHC 31.1 g/dL (30.0-36.0) 06/18/22 14:40 RDW 14.4 % (12.1-15.1) 06/18/22 14:40 Plt Count 228 10^3/cmm (130-400) 06/18/22 14:40 MPV 9.8 fL (7.4-10.4) 06/18/22 14:40 Neut % (Auto) 76.6 % 06/18/22 14:40 Lymph % (Auto) 13.2 % 06/18/22 14:40 [place] % (Auto) 8.0 % 06/18/22 14:40 Eos % (Auto) 1.5 % 06/18/22 14:40 Baso % (Auto) 0.1 % 06/18/22 14:40 Neut # (Auto) 11.06 10^3/uL (1.8-7.7) H 06/18/22 14:40 Lymph # (Auto) 1.9 10^3/uL (0.8-4.8) 06/18/22 14:40 [place] # (Auto) 1.2 10^3/uL (0.2-0.9) H 06/18/22 14:40 Eos # (Auto) 0.2 10^3/uL (0.0-0.8) 06/18/22 14:40 Baso # (Auto) 0.0 10^3/uL (0.0-0.1) 06/18/22 14:40 Nucleated RBC % (auto) 0 % 06/18/22 14:40 Nucleated RBCs # 0.0 /100WBC 06/18/22 14:40 Sodium 134 mmol/L (136-145) L 06/18/22 14:40 Potassium 3.9 mmol/L (3.5-5.1) 06/18/22 14:40 Chloride 98 mmol/L (98-107) 06/18/22 14:40 Carbon Dioxide 29 mmol/L (22-29) 06/18/22 14:40 Anion Gap 10.9 (5-19) 06/18/22 14:40 BUN 29 mg/dL (8-23) H 06/18/22 14:40 Creatinine 1.2 mg/dL (0.5-0.9) H 06/18/22 14:40 GFR Calculation Not Reportable 06/18/22 14:40 Glucose 156 mg/dL (65-115) H 06/18/22 14:40 Calculated Osmolality 287 mOsm/kg (285-295) 06/18/22 14:40 Calcium 8.9 mg/dL (8.5-10.5) 06/18/22 14:40 Total Bilirubin 0.2 mg/dL (0.15-1.2) 06/18/22 14:40 AST 7 U/L (0-32) 06/18/22 14:40 ALT < 5 U/L (0-33) 06/18/22 14:40 Alkaline Phosphatase 91 U/L (35-105) 06/18/22 14:40 Total Protein 5.3 g/dL (6.6-8.7) L 06/18/22 14:40 Albumin 2.8 g/dL (3.5-5.2) L 06/18/22 14:40 Globulin 2.5 g/dL (1.3-4.6) 06/18/22 14:40 Lipase 38 U/L (13-60) 06/18/22 14:40 EKG Data EKG 1: I personally reviewed and interpreted this EKG as follows: Interpretation: Resting EKG reveals a ventricular rate of 90 bpm. She has predominantly a sinus rhythm with occasional extrasystole. She has normal NC interval, normal QRS duration, normal uke QTc interval. Normal axes. No significant ST-T wave segment changes noted Discharge Plan Discharge Patient Disposition: Admitted As Inpatient Clinical Impression: Diverticulitis, Anemia, Atrial fibrillation Condition: Stable Prescriptions: No Action furosemide [Lasix] 40 mg tablet 40 mg PO BID 30 Days Qty: 60 0RF Rx Instructions: 340 B metoprolol tartrate 25 mg tablet 12.5 mg PO BID Qty: 90 3RF magnesium L-lactate [Magtab] 84 mg tablet extended release 84 mg PO BID Qty: 180 3RF Xarelto 15 mg tablet 15 mg PO DAILY Qty: 30 2RF Hold Instructions: Resume on 04/11/22. This evening Rx Instructions: must administer with evening meal hydrocodone-acetaminophen 10-325 mg tablet 1 tab PO Q8H PRN (Reason: Pain) 30 Days Qty: 90 0RF montelukast 10 mg tablet 10 mg PO BEDTIME Qty: 30 0RF Rx Instructions: 340 B zolpidem 10 mg tablet 10 mg PO BEDTIME Qty: 30 1RF hydrocodone-acetaminophen 5-325 mg tablet 1 tab PO Q6H PRN (Reason: pain) 5 Days Qty: 14 0RF Rx Instructions: For Dr. Fernandez from an ER visit sennosides-docusate sodium [Stool Softener-Laxative] 8.6-50 mg Tablet 1 tab PO BID Qty: 60 0RF lactulose 10 gram/15 mL solution 10 g PO DAILY PRN (Reason: constipation) Qty: 237 0RF alprazolam 1 mg Tablet 0.5 mg PO BID 14 Days Qty: 14 0RF rosuvastatin 20 mg Tablet 20 mg PO DAILY 30 Days Qty: 30 0RF pantoprazole 40 mg tablet,delayed release (DR/EC) 40 mg PO DAILY Qty: 30 0RF Rx Instructions: 340 B albuterol sulfate 2.5 mg /3 mL (0.083 %) Solution For Nebulization 2.5 mg INHALATION Q4H PRN (Reason: Shortness Of Breath) albuterol sulfate 90 mcg/actuation Hfa Aerosol Inhaler 1 puff INHALATION QID PRN (Reason: Shortness Of Breath) diltiazem HCl [Cardizem LA] 240 mg tablet extended release 24 hr 240 mg PO DAILY Qty: 90 2RF promethazine 6.25 mg/5 mL Syrup 6.25 mg PO QID PRN (Reason: Cough) Anoro Ellipta 62.5-25 mcg/actuation blister with device 1 inh INHALATION BID dofetilide 125 mcg capsule 250 mcg PO BID 30 Days Qty: 120 3RF potassium chloride 20 mEq tablet extended release 40 meq PO DAILY Qty: 30 0RF Rx Instructions: 340 B guaifenesin 400 mg tablet 400 mg PO TID PRN (Reason: Congestion) cholecalciferol (vitamin D3) [Vitamin D3] 25 mcg (1,000 unit) Tablet 25 mcg PO DAILY diltiazem HCl 30 mg tablet 30 mg PO Q8H PRN (Reason: Blood Pressure) Qty: 60 0RF Rx Instructions: TAKE IF BP OVER 110 340 B ondansetron 4 mg tablet,disintegrating 4 mg PO Q6H PRN (Reason: nausea and vomiting) Qty: 14 0RF ondansetron 4 mg tablet,disintegrating 4 mg PO Q6H PRN (Reason: nausea and vomiting) Qty: 14 0RF Referrals: Ava Fernandez DO [Primary Care Provider] - Coding Level of Care Code ED Precision Mechanical Instrument Maker for Chg Fwd Exam Comprehensive
--- NOTE | 2022-06-18 14:14 | ECG_ITS ---
[facility] Test Date: 2022-06-18 Pat Name: Rebeca Álvarez Department: Room: Gender: Female Public Relations Analyst: : 1950 Requested By: Elena Gonzales Order Number: [id number] Mohamud MD: Massiel Cabezas M.D. Measurements Intervals [place] Rate: 90 P: -9 HI: 198 QRS: 49 QRSD: 76 T: 70 QT: 362 QTc: 443 Interpretive Statements SINUS RHYTHM WITH OCCASIONAL SUPRAVENTRICULAR PREMATURE COMPLEXES POSSIBLE LEFT ATRIAL ENLARGEMENT [-0.1mV P-WAVE IN V1/V2] Compared to ECG 06/14/2022 21:29:57 Atrial fibrillation no longer present Electronically Signed On 06-18-2022 20:19:39 WAREHOUSE CLERK by Massiel Cabezas M.D. [id number]
--- NOTE | 2022-06-18 14:16 | CTR_ITS ---
PROCEDURE INFORMATION: Exam: CT Abdomen And Pelvis Without Contrast Exam date and time: 06/18/2022 2:52 PM Age: 71 years old Clinical indication: Other: Hematochezia; Prior surgery; Surgery type: Gb, hyster; Additional info: Lower abd pain with brbpr TECHNIQUE: Imaging protocol: Computed tomography of the abdomen and pelvis without contrast. Radiation optimization: All CT scans at this facility use at least one of these dose optimization techniques: automated exposure control; mA and/or kV adjustment per patient size (includes targeted exams where dose is matched to clinical indication); or iterative reconstruction. COMPARISON: CT angio chest w abd pel w con 06/14/2022 8:32 PM RADIATION DOSE METRICS: Total DLP (mGy-cm): 725.39 FINDINGS: Liver: Normal. No mass. Gallbladder and bile ducts: Cholecystectomy. No ductal dilation. Trace pneumobilia likely secondary to sphincterotomy. Pancreas: Normal. No ductal dilation. Spleen: Normal. No splenomegaly. Adrenal glands: Normal. No mass. Kidneys and ureters: Asymmetric severe atrophy of the right kidney. No hydronephrosis. Stomach and bowel: Colonic diverticulosis with inflammatory fat stranding adjacent to a diverticula within the sigmoid colon. No signs of colonic perforation or pericolonic abscess. Appendix: No evidence of appendicitis. Intraperitoneal space: No free air. No significant fluid collection. Vasculature: Unremarkable. No abdominal aortic aneurysm. Lymph nodes: Unremarkable. No enlarged lymph nodes. Urinary bladder: Unremarkable as visualized. Reproductive: Unremarkable as visualized. Bones/joints: No acute fracture. Soft tissues: Unremarkable. CT/CT abdomen pelvis con [id number] IMPRESSION: Acute uncomplicated sigmoid diverticulitis.
[2022-06-18 15:22] LABS: Basophils % 0.1 %; Eosinophils # 0.2 10^3/uL (0.0-0.8); Eosinophils % 1.5 %; Hematocrit 24.1 % (37.0-47.0); Hemoglobin 7.5 g/dL (11.5-15.3); Lymphocytes # 1.9 10^3/uL (0.8-4.8); Lymphocytes % 13.2 %; Mean Corpuscular HGB Conc 31.1 g/dL (30.0-36.0); Mean Corpuscular Hemoglobin 29.9 pg (28.0-34.0); Mean Platelet Volume 9.8 fL (7.4-10.4); Monocytes # 1.2 10^3/uL (0.2-0.9); Neutrophils # 11.06 10^3/uL (1.8-7.7); Neutrophils % 76.6 %; Nucleated Red Blood Cells % 0 %; Platelet Count 228 10^3/cmm (130-400); Red Blood Count 2.51 10^6/uL (4.1-5.3); Red Cell Distribution Width 14.4 % (12.1-15.1); White Blood Count 14.4 10^3/uL (4.0-10.0)
[2022-06-18 15:36] LABS: Alanine Aminotransferase < 5 U/L (0-33); Albumin Level 2.8 g/dL (3.5-5.2); Alkaline Phosphatase 91 U/L (35-105); Anion Gap 10.9 (5-19); Aspartate Amino Transferase 7 U/L (0-32); Blood Urea Nitrogen 29 mg/dL (8-23); Calcium 8.9 mg/dL (8.5-10.5); Carbon Dioxide 29 mmol/L (22-29); Chloride 98 mmol/L (98-107); Globulin 2.5 g/dL (1.3-4.6); Glucose 156 mg/dL (65-115); Lipase 38 U/L (13-60); Osmolality Calculated 287 mOsm/kg (285-295); Potassium 3.9 mmol/L (3.5-5.1); Sodium 134 mmol/L (136-145); Total Bilirubin 0.2 mg/dL (0.15-1.2); Total Protein 5.3 g/dL (6.6-8.7)
[2022-06-18] MEDS: ciprofloxacin 400 MG/200 ML PREMIX 200 MG IV (16:23)
--- NOTE | 2022-06-18 17:07 | P.HP_ITS ---
Providers/Chief Complaint Admitting Physician: Shayy Chavez MD Primary Care Provider: Ava Fernandez DO Chief Complaint: possible afib and gi bleed History of Present Illness Rebeca Álvarez is a 71 year old female who is on coagulating agent Xarelto for A. fib presented with chief complaint of hematochezia. Her symptoms started 3 days ago, she has been experiencing loose stools, more than 20 episodes, bright bleed per rectum, abdominal pain and nausea. She has not expressed any vomiting but endorsing fever of 101 Fahrenheit at home. Her last meal was this morning, she has been noticing shortness of breath however no chest pain. Of note, she was admitted at [facility] 2 weeks ago for COVID-19 related pneumonia where she was kept for 5 days, she uses 3 L of oxygen at baseline In the ER she has been diagnosed with acute blood loss anemia related to divert iculitis, CT scan is showing diverticulitis no signs of abscess, mild leukocytosis she is afebrile, no tachycardia, hemodynamically stable No signs of sepsis She will be given 1 unit PRBC, will be kept on clear liquids and then n.p.o. after midnight in case she required any intervention Review of Systems Const: Reports: fever(s) and chills Eyes: Denies: change in vision ENMT: Denies: throat pain Card: Denies: chest pain Resp: Reports: dyspnea GI: Reports: abdominal pain, nausea and hematochezia : Denies: flank pain Musc: Denies: neck pain Skin/Breast: Reports: rash Neuro: Denies: headache(s) Psych: Denies: anxiety Endo: Denies: cold intolerance Mahesh/Lymph: Reports: easy bruising All/Imm: Denies: urticaria Medications/Allergies Home Medications Medication Instructions Recorded Confirmed Last Taken Type lactulose 10 gram/15 mL oral 10 g (15 mL) PO DAILY PRN 01/25/22 06/18/22 Unknown Rx solution constipation #237 mL albuterol sulfate 2.5 mg/3 mL 2.5 mg inhalation Q4H PRN 01/29/22 06/18/22 Unknown History (0.083 %) solution for nebulization Shortness Of Breath albuterol sulfate 90 mcg/actuation 1 puff inhalation QID PRN 01/29/22 06/18/22 Unknown History aerosol inhaler Shortness Of Breath metoprolol tartrate 25 mg tablet 12.5 mg PO BID #90 tabs 03/09/22 06/18/22 06/17/22 Rx promethazine 6.25 mg/5 mL oral 6.25 mg PO QID PRN Cough 03/13/22 06/18/22 Unknown History syrup umeclidinium 62.5 mcg-vilanterol 1 inh inhalation BID 03/13/22 06/18/22 06/17/22 History 25 mcg/actuation powdr for inhalation (Anoro Ellipta) cholecalciferol (vitamin D3) 25 25 mcg PO DAILY 03/20/22 06/18/22 06/17/22 History mcg (1,000 unit) tablet (Vitamin D3) guaifenesin 400 mg tablet 400 mg PO TID PRN Congestion 03/20/22 06/18/22 Unknown History diltiazem HCl 30 mg tablet 30 mg PO Q8H PRN Blood Pressure 05/04/22 06/18/22 Unknown Rx #60 tabs furosemide 40 mg tablet (Lasix) 40 mg PO BID 30 days #60 tabs 05/04/22 06/18/22 06/17/22 Rx montelukast 10 mg tablet 10 mg PO BEDTIME #30 tabs 05/04/22 06/18/22 06/17/22 Rx pantoprazole 40 mg tablet,delayed 40 mg PO DAILY #30 tabs 05/04/22 06/18/22 1 Rx release potassium chloride 20 mEq 40 meq PO DAILY #30 tabs 05/04/22 06/18/22 06/17/22 Rx tablet,extended release zolpidem 10 mg tablet 10 mg PO BEDTIME #30 tabs 05/24/22 06/18/22 06/17/22 Rx ondansetron 4 mg disintegrating 4 mg PO Q6H PRN nausea and 05/25/22 06/18/22 Unk nown Rx tablet vomiting #14 tabs hydrocodone 5 mg-acetaminophen 325 1 tab PO Q6H PRN pain 5 days #14 06/16/22 06/18/22 06/18/22 Rx mg tablet tabs alprazolam 1 mg tablet 0.5 mg PO BID PRN Anxiety 06/18/22 06/18/22 Unknown History diltiazem HCl 120 mg capsule,24 240 mg PO DAILY 06/18/22 06/18/22 06/18/22 History hr,extended release gabapentin 300 mg capsule 300 mg PO BID 06/18/22 06/18/22 06/17/22 History sennosides 8.6 mg-docusate sodium 1 tab PO DAILY 06/18/22 06/18/22 06/17/22 History 50 mg tablet (Stool Softener-Laxative) Allergies Allergy/AdvReac Type Severity Reaction Status Date / Time morphine Allergy Unknown Verified 05/04/22 14:37 Penicillins Allergy Unknown Verified 05/04/22 14:37 PFSH Acute PFSH: Medical History Abdominal pain Acute diastolic heart failure Acute kidney injury superimposed on CKD HERBER (acute kidney injury) Atrial fibrillation Atrial fibrillation Atrial fibrillation with rapid ventricular response Atrial fibrillation with RVR Chronic anticoagulation Chronic kidney disease COPD (chronic obstructive pulmonary disease) Dehydration Fatigue Generalized weakness GERD (gastroesophageal reflux disease) History of breast cancer History of syncope HTN (hypertension) with goal to be determined Hypokalemia Pneumonia Right heart failure Sinus node dysfunction T2DM (type 2 diabetes mellitus) Volume overload Surgical History History of knee replacement History of radical hysterectomy Hx of cholecystectomy Family History Mother , at age 62 Cancer Cervical Emphysema lung Father , at age 64 Black lung disease Social History Smoking and tobacco status: current every day smoker Alcohol intake: never Household members: spouse Marital status: / Current occupational status: retired History of recent travel: No Vitals/I&O/Wt Last Vital Signs Temp 97.9 F 06/18/22 12:46 Pulse 91 06/18/22 16:50 Resp 15 06/18/22 16:50 BP 108/65 06/18/22 16:50 Pulse Ox 100 06/18/22 16:50 Weight last 48 hrs Weight 90.718 kg Physical Exam Narrative: Pleasant cooperative elderly female Appears stated age No signs of dehydration Sinus rhythm, heart rate in 70s S1, S2 Normal blood pressure Currently saturating 99% on 2 L Abdomen tender hypogastric and left lower quadrant area Petechial rash noted in hypogastric region Mild pitting edema of legs noted Hemoccult PERRLA Nonfocal neuro exam Data 06/18/22 14:40 06/18/22 14:40 A&P Assessment and plan (1) Diverticulitis: (2) Anemia: (3) Atrial fibrillation: Plan Acute diverticulitis with diverticular bleed Hematochezia Acute normocytic GI blood loss anemia Transfuse 1 unit PRBC, previous hemoglobin ranged between 10-12 Hold Xarelto Patient is hemodynamically stable Ciprofloxacin and Flagyl for diverticulitis Recently recovered from COVID-19 infection uses 3 L of oxygen at baseline currently doing well on 2 L Tender abdomen on deep palpation, petechial rash hypogastric and left lower quadrant area Patient is full code N.p.o. after midnight in case she would require any sigmoidoscopy, Chronic kidney disease creatinine seems to not baseline A. fib without RVR Continue Cardizem, holding metoprolol to avoid severe hypotension Will consult general surgery in case of any worsening Attestations Medical Necessity Statement*: Anticipating more than 2 midnights for man agement of diverticulitis, hematochezia Time Spent in Patient Care: 40 Coding Level of Care Code Acute Plant Safety Engineer for [facility] Shira Diagnoses Diverticulitis K57.92 Anemia D64.9 Atrial fibrillation I48.91
[2022-06-18 18:29] LABS: Procalcitonin 0.17 ng/mL (0-0.5)
[2022-06-18] MEDS: metroNIDAZOLE IV 500 MG/100 ML PREMIX 100 MG IV (18:52)
[2022-06-18] MEDS: pantoprazole 40 mg SDV IVP (19:06)
[2022-06-18 19:18] LABS: Add Urine Microscopic? NO; Charge for UA Resulting for Rev
[2022-06-18 19:49] LABS: Bilirubin Urine Neg (Negative); Blood Urine Neg (Negative); Glucose Urine UA Norm (Normal); Ketones Urine Negative (Negative); Leukocyte Esterase Urine Negative (Negative); Nitrate Urine Negative (Negative); Protein Urine Neg (Negative); Specific Gravity, Urine 1.025 (1.005-1.030); Urine Appearance Clear (CLEAR); Urine Color Yellow (Yellow); Urobilinogen Urine Norm (Negative); pH Urine 5 (5-7)
[2022-06-18] MEDS: sodium chloride 0.9% (100 ml) 100 ML (20:14)
[2022-06-18] MEDS: zolpidem 5 mg Tablet 10 MG PO (21:03)
[2022-06-19] VITALS (13 sets, daily range): BP systolic 90–107; BP diastolic 54–77; PULSE 68–109; RESP 16–18; TEMP 36.5–38; O2SAT 96–98
[2022-06-19] MEDS: metroNIDAZOLE IV 500 MG/100 ML PREMIX 100 MG IV ×3 (02:42→17:41)
[2022-06-19 04:12] LABS: Basophils % 0.1 %; Eosinophils # 0.2 10^3/uL (0.0-0.8); Eosinophils % 1.7 %; Lymphocytes # 1.7 10^3/uL (0.8-4.8); Lymphocytes % 13.5 %; Mean Corpuscular HGB Conc 31.7 g/dL (30.0-36.0); Mean Corpuscular Hemoglobin 29.4 pg (28.0-34.0); Mean Corpuscular Volume 92.8 fl (81-99); Mean Platelet Volume 9.4 fL (7.4-10.4); Monocytes # 1.3 10^3/uL (0.2-0.9); Monocytes % 10.3 %; Neutrophils % 73.8 %; Nucleated Red Blood Cells % 0 %; Platelet Count 167 10^3/cmm (130-400); Red Blood Count 2.21 10^6/uL (4.1-5.3); Red Cell Distribution Width 15.3 % (12.1-15.1); White Blood Count 12.6 10^3/uL (4.0-10.0)
[2022-06-19 04:37] LABS: Anion Gap 10.7 (5-19); Blood Urea Nitrogen 24 mg/dL (8-23); C Reactive Protein 76.4 mg/L (0.0-4.9); Calcium 8.1 mg/dL (8.5-10.5); Carbon Dioxide 26 mmol/L (22-29); Chloride 104 mmol/L (98-107); Glucose 135 mg/dL (65-115); Magnesium 1.8 mg/dL (1.7-2.3); Osmolality Calculated 290 mOsm/kg (285-295); Potassium 3.7 mmol/L (3.5-5.1); Sodium 137 mmol/L (136-145)
[2022-06-19 04:44] LABS: Hematocrit 20.5 % (37.0-47.0); Hemoglobin 6.5 g/dL (11.5-15.3)
--- NOTE | 2022-06-19 06:53 | P.PN_ITS ---
Subjective Subjective: Hemoglobin 6.5, hemodynamically stable Temperature 97.7 No sign of fever or sepsis She had couple of episode of hematochezia last night but stating that bleeding is slowing down Vitals/I&O/Wt Last Vital Signs Temp 97.7 F 06/19/22 04:16 Pulse 76 06/19/22 04:16 Resp 18 06/19/22 04:16 BP 96/57 06/19/22 04:16 Pulse Ox 96 06/19/22 04:16 O2 Del Method 06/19/22 04:16 O2 Flow Rate 2 06/18/22 22:29 06/18/22 06/18/22 06/19/22 14:59 22:59 06:59 Intake Total 360 / 360 200 / 560 Balance 360 / 360 200 / 560 Weight last 48 hrs Weight 90.718 kg Physical Exam Narrative: Awake and alert Tender abdomen left lower quadrant Hemodynamically stable Doing well on room air S1, S2 Variable Nonfocal neuro exam Pleasant and cooperative Data 06/19/22 03:30 06/19/22 03:30 A&P Assessment and plan (1) Diverticulitis: (2) Anemia: (3) Atrial fibrillation: (4) GERD (gastroesophageal reflux disease): (5) Acute blood loss anemia: Plan Acute GI related blood loss anemia Diverticular bleed Will give setting of PRBC Hemodynamically stable Hemoglobin 6.5 Hold anticoagulating agent No signs of sepsis, afebrile Continue antibiotics for diverticulitis Patient will need colonoscopy outpatient In case of further worsening will consult general surgery DVT prophylaxis SCDs Full code Patient uses 2 to 3 L of oxygen at baseline Advance diet to clear liquids She will be getting her second unit of PRBC Attestations Medical Necessity Statement*: Continue medical management Time Spent in Patient Care: 30 Coding Level of Care Code Acute Patient Financial Services Coordinator for [facility] Fwd Diagnoses Diverticulitis K57.92 Anemia D64.9 Atrial fibrillation I48.91 GERD (gastroesophageal reflux disease) K21.9 Acute blood loss anemia D62
[2022-06-19] MEDS: sodium chloride 0.9% 100 ML 20 ML IV (09:32)
[2022-06-19] MEDS: dilTIAZem ER (24HR) 240 mg Capsule PO (09:32)
[2022-06-19] MEDS: pantoprazole 40 mg SDV IVP ×2 (10:06→17:02)
[2022-06-19] MEDS: ciprofloxacin 400 MG/200 ML PREMIX 200 MG IV ×2 (12:26→20:19)
[2022-06-19 15:25] LABS: Hematocrit 23.4 % (37.0-47.0); Hemoglobin 7.4 g/dL (11.5-15.3)
[2022-06-19 15:43] LABS: Lactate (Lactic Acid level) 1.7 mmol/L (0.5-2.2)
[2022-06-19] MEDS: ALPRAZolam 0.5 mg Tablet PO (16:57)
[2022-06-19] MEDS: HYDROcodone-acetaminophen 5-325 mg Tablet 1 TAB PO (16:57)
[2022-06-19] MEDS: zolpidem 5 mg Tablet 10 MG PO (20:19)
[2022-06-20] VITALS (7 sets, daily range): BP systolic 96–119; BP diastolic 57–73; PULSE 75–93; RESP 15–18; TEMP 36.7–37.2; O2SAT 96–100
[2022-06-20] MEDS: metroNIDAZOLE IV 500 MG/100 ML PREMIX 100 MG IV ×3 (01:48→17:41)
[2022-06-20 05:31] LABS: Basophils % 0.2 %; Eosinophils # 0.2 10^3/uL (0.0-0.8); Eosinophils % 1.6 %; Hematocrit 25.4 % (37.0-47.0); Hemoglobin 8.1 g/dL (11.5-15.3); Lymphocytes # 1.8 10^3/uL (0.8-4.8); Lymphocytes % 18.8 %; Mean Corpuscular HGB Conc 31.9 g/dL (30.0-36.0); Mean Corpuscular Hemoglobin 28.9 pg (28.0-34.0); Mean Corpuscular Volume 90.7 fl (81-99); Mean Platelet Volume 9.1 fL (7.4-10.4); Monocytes % 10.2 %; Neutrophils % 68.7 %; Nucleated Red Blood Cells % 0 %; Platelet Count 179 10^3/cmm (130-400); Red Cell Distribution Width 16.3 % (12.1-15.1); White Blood Count 9.6 10^3/uL (4.0-10.0)
[2022-06-20 05:46] LABS: Anion Gap 10.5 (5-19); Blood Urea Nitrogen 9 mg/dL (8-23); Calcium 8.1 mg/dL (8.5-10.5); Carbon Dioxide 24 mmol/L (22-29); Chloride 111 mmol/L (98-107); Glucose 110 mg/dL (65-115); Osmolality Calculated 293 mOsm/kg (285-295); Potassium 3.5 mmol/L (3.5-5.1); Sodium 142 mmol/L (136-145)
[2022-06-20] MEDS: dilTIAZem ER (24HR) 240 mg Capsule PO (08:24)
[2022-06-20] MEDS: pantoprazole 40 mg SDV IVP ×2 (08:24→17:40)
[2022-06-20] MEDS: ciprofloxacin 400 MG/200 ML PREMIX 200 MG IV ×2 (08:24→19:45)
[2022-06-20] MEDS: ALPRAZolam 0.5 mg Tablet PO ×2 (08:33→23:16)
[2022-06-20] MEDS: HYDROcodone-acetaminophen 5-325 mg Tablet 1 TAB PO ×2 (08:33→19:45)
--- NOTE | 2022-06-20 12:20 | P.PN_ITS ---
Subjective Subjective: Patient is stating that she still having mild discomfort in her lower quadrants however she is noticing that her bleeding is slowing down, HemoGlobin stable at 8.1 Hemodynamically stable, soft low pressure I will hold her Cardizem for tomorrow Patient is willing to stay 1 more day to watch her H&H She will need 10 days of antibiotics and then colonoscopy Vitals/I&O/Wt Last Vital Signs Temp 99.0 F 06/20/22 11:48 Pulse 75 06/20/22 11:48 Resp 16 06/20/22 11:48 BP 100/62 06/20/22 11:48 Pulse Ox 97 06/20/22 11:48 O2 Del Method 06/20/22 11:48 O2 Flow Rate 2 06/20/22 07:16 06/19/22 06/20/22 06/20/22 22:59 06:59 14:59 Intake Total 1320 / 2538.667 100 / 2638.667 700 / 700 Output Total 900 / 900 Balance 420 / 1638.667 100 / 1738.667 700 / 700 Weight last 48 hrs Weight 90.718 kg Physical Exam Narrative: Awake and alert Nonfocal neuro exam Currently on 3 L at baseline A. fib without RVR Hemodynamically stable Abdomen soft on palpation, no significant tenderness on deep palpation, bowel sound present Awake and alert No signs of congestive heart failure Data 06/20/22 05:09 06/20/22 05:09 Micro: Microbiology 06/19/22 15:18 Blood Culture - Preliminary Blood SPECIMEN COLLECTED 06/19/22 15:09 Blood Culture - Preliminary Blood SPECIMEN COLLECTED A&P Assessment and plan (1) Acute blood loss anemia: (2) Diverticulitis: (3) Anemia: (4) Atrial fibrillation: (5) Atrial fibrillation with rapid ventricular response: (6) Abdominal pain: Plan Acute diverticulitis No sepsis, tolerating diet however still complaining abdominal pain, no active signs of tenderness or peritonitis, she has remained afebrile Ciprofloxacin and Flagyl to be continued until the day of discharge She will need p.o. antibiotics for 10 days at discharge Hemoglobin stable status post 2 units PRBC She will need colonoscopy outpatient Holding Xarelto for next 2 weeks as well Full code Continue clear liquid diet for now Attestations Medical Necessity Statement*: Discharge tomorrow if stable Time Spent in Patient Care: 30 Coding Level of Care Code Acute Research Project Manager for [facility] Fwd Diagnoses Acute blood loss anemia D62 Diverticulitis K57.92 Anemia D64.9 Atrial fibrillation I48.91 Atrial fibrillation with rapid ventricular response I48.91 Abdominal pain R10.9
[2022-06-20] MEDS: zolpidem 5 mg Tablet 10 MG PO (21:00)
[2022-06-21] VITALS (11 sets, daily range): BP systolic 107–134; BP diastolic 60–75; PULSE 73–82; RESP 15–18; TEMP 36.8–37.3; O2SAT 96–100
[2022-06-21 01:36] LABS: Basophils % 0.3 %; Eosinophils # 0.2 10^3/uL (0.0-0.8); Eosinophils % 3.2 %; Hematocrit 23.7 % (37.0-47.0); Hemoglobin 7.4 g/dL (11.5-15.3); Lymphocytes # 1.7 10^3/uL (0.8-4.8); Lymphocytes % 25.5 %; Mean Corpuscular HGB Conc 31.2 g/dL (30.0-36.0); Mean Corpuscular Hemoglobin 28.7 pg (28.0-34.0); Mean Corpuscular Volume 91.9 fl (81-99); Mean Platelet Volume 8.8 fL (7.4-10.4); Monocytes # 0.8 10^3/uL (0.2-0.9); Monocytes % 11.5 %; Neutrophils % 59.1 %; Nucleated Red Blood Cells % 0 %; Platelet Count 194 10^3/cmm (130-400); Red Blood Count 2.58 10^6/uL (4.1-5.3); Red Cell Distribution Width 16.5 % (12.1-15.1); White Blood Count 6.8 10^3/uL (4.0-10.0)
[2022-06-21] MEDS: metroNIDAZOLE IV 500 MG/100 ML PREMIX 100 MG IV ×2 (02:55→11:03)
[2022-06-21] MEDS: HYDROcodone-acetaminophen 5-325 mg Tablet 1 TAB PO (02:58)
[2022-06-21 07:11] LABS: Hematocrit 22.9 % (37.0-47.0); Hemoglobin 7.1 g/dL (11.5-15.3)
--- NOTE | 2022-06-21 09:03 | PC.SOCIAL ---
IMM update IMM Updated with patient. Verbalized an understanding. Copy Pg 2 provided. Initialled, dated, timed, and placed in chart.
[2022-06-21] MEDS: ciprofloxacin 400 MG/200 ML PREMIX 200 MG IV (09:52)
[2022-06-21 10:00] LABS: Hematocrit 23.4 % (37.0-47.0); Hemoglobin 7.3 g/dL (11.5-15.3)
--- NOTE | 2022-06-21 10:09 | PM.DCS ---
Discharge Providers Date of Admission: 06/18/22 16:02 Date of Discharge: June 21, 2022 Attending Provider at Admission: Shayy Chavez MD Attending Provider at Discharge: Shayy Chavez MD Primary Care Provider: Ava Fernandez DO Diagnoses at Discharge Discharge Diagnosis (1) Acute blood loss anemia: Status: Acute (2) Diverticulitis: Status: Acute (3) Anemia: Status: Acute (4) Atrial fibrillation: Status: Acute (5) Atrial fibrillation with rapid ventricular response: Status: Acute (6) Abdominal pain: Status: Acute Reason for Visit Reason for Visit: possible afib and gi bleed Hospital Course Hospital Course Very pleasant 71-year-old female who is from [place] currently living with her son in [place] presented with chief complaint of abdominal pain, fever and bloody bowel movement. Her symptoms worsened on the day she presented to the ER. She was diagnosed with severe anemia hemoglobin 6.5, required 2 units of PRBC which improved her hemoglobin to 8, she was diagnosed with diverticulitis and diverticular bleed. Hematochezia improved however her hemoglobin trickled down to 7.3 again, throughout her hospitalization she remained hemodynamically stable, no significant tachycardia. She carries history of A. fib and takes Xarelto. Patient will need outpatient colonoscopy after 10 days of antibiotics give her referral to see Dr. Frazier. No signs of bacteremia or sepsis. Patient is stating that she had couple of episodes of diverticulitis and diverticular bleed and no emboli and required blood transfusion as well I have asked her not to take Xarelto for at least 1 month and follow-up with PCP after her colonoscopy. In Total she required 3 units PRBC during this hospitalization. At baseline she requires 3 L of oxygen she carries history of oxygen dependent COPD. Physical Exam Narrative: Awake and alert Nonfocal neuro exam Currently on 3 L at baseline A. fib without RVR Hemodynamically stable Abdomen soft on palpation, no significant tenderness on deep palpation, bowel sound present Awake and alert No signs of congestive heart failure Discharge Data Studies Completed and Pending Completed Studies During Hospitalization Category Date Time Status CT abdomen pelvis con [id number] Stat Cat Scan 06/18/22 14:16 Completed Pending at discharge Category Date Time Status Blood Culture Stat Lab 06/19/22 15:18 Results Radiology Impressions Abdomen/Pelvis CT 06/18/22 14:16 IMPRESSION: Acute uncomplicated sigmoid diverticulitis. Laboratory Results WBC 6.8 10^3/uL (4.0-10.0) 06/21/22: RBC 2.58 10^6/uL (4.1-5.3) L 06/21/22 01: Hgb 7.3 g/dL (11.5-15.3) L 06/21/22 09:46 Hct 23.4 % (37.0-47.0) L 06/21/22 09:46 MCV 91.9 fl (81-99) 06/21/22: MCH 28.7 pg (28.0-34.0) 06/21/22: MCHC 31.2 g/dL (30.0-36.0) 06/21/22: RDW 16.5 % (12.1-15.1) H 06/21/22: Plt Count 194 10^3/cmm (130-400) 06/21/22: MPV 8.8 fL (7.4-10.4) 06/21/22 01: Neut % (Auto) 59.1 % 06/21/22: Lymph % (Auto) 25.5 % 06/21/22: [place] % (Auto) 11.5 % 06/21/22: Eos % (Auto) 3.2 % 06/21/22: Baso % (Auto) 0.3 % 06/21/22: Neut # (Auto) 4.00 10^3/uL (1.8-7.7) 06/21/22: Lymph # (Auto) 1.7 10^3/uL (0.8-4.8) 06/21/22: [place] # (Auto) 0.8 10^3/uL (0.2-0.9) 06/21/22: Eos # (Auto) 0.2 10^3/uL (0.0-0.8) 06/21/22: Baso # (Auto) 0.0 10^3/uL (0.0-0.1) 06/21/22: Nucleated RBC % (auto) 0 % 06/21/22:23 Nucleated RBCs # 0.0 /100WBC 06/21/22 01:23 Sodium 142 mmol/L (136-145) 06/20/22 05:09 Potassium 3.5 mmol/L (3.5-5.1) 06/20/22 05:09 Chloride 111 mmol/L (98-107) H 06/20/22 05:09 Carbon Dioxide 24 mmol/L (22-29) 06/20/22 05:09 Anion Gap 10.5 (5-19) 06/20/22 05:09 BUN 9 mg/dL (8-23) 06/20/22 05:09 Creatinine 0.8 mg/dL (0.5-0.9) 06/20/22 05:09 GFR Calculation Not Reportable 06/20/22 05:09 Glucose 110 mg/dL (65-115) 06/20/22 05:09 Calculated Osmolality 293 mOsm/kg (285-295) 06/20/22 05:09 Lactate 1.7 mmol/L (0.5-2.2) 06/19/22 15:09 Calcium 8.1 mg/dL (8.5-10.5) L 06/20/22 05:09 Magnesium 1.8 mg/dL (1.7-2.3) 06/19/22 03:30 Total Bilirubin 0.2 mg/dL (0.15-1.2) 06/18/22 14:40 AST 7 U/L (0-32) 06/18/22 14:40 ALT < 5 U/L (0-33) 06/18/22 14:40 Alkaline Phosphatase 91 U/L (35-105) 06/18/22 14:40 C-Reactive Protein 76.4 mg/L (0.0-4.9) H 06/19/22 03:30 Total Protein 5.3 g/dL (6.6-8.7) L 06/18/22 14:40 Albumin 2.8 g/dL (3.5-5.2) L 06/18/22 14:40 Globulin 2.5 g/dL (1.3-4.6) 06/18/22 14:40 Lipase 38 U/L (13-60) 06/18/22 14:40 Procalcitonin 0.17 ng/mL (0-0.5) 06/18/22 14:40 Urine Color Yellow (Yellow) 06/18/22 18:35 Urine Appearance Clear (CLEAR) 06/18/22 18:35 Urine pH 5 (5-7) 06/18/22 18:35 Ur Specific [place] 1.025 (1.005-1.030) 06/18/22 18:35 Urine Protein Neg (Negative) 06/18/22 18:35 Urine Glucose (UA) Norm (Normal) 06/18/22 18:35 Urine Ketones Negative (Negative) 06/18/22 18:35 Urine Blood Neg (Negative) 06/18/22 18:35 Urine Nitrate Negative (Negative) 06/18/22 18:35 Urine Bilirubin Neg (Negative) 06/18/22 18:35 Urine Urobilinogen Norm mg/dL (Negative) 06/18/22 18:35 Ur Leukocyte Esterase Negative (Negative) 06/18/22 18:35 Blood Type A Positive 06/18/22 16:21 Rho(D) Type Positive 06/18/22 16:21 Antibody Screen Negative 06/18/22 16:21 Crossmatch See Detail 06/18/22 16:21 Vitals Last Vital Signs Temp 98.4 F 06/21/22 08:00 Pulse 80 06/21/22 08:36 Resp 18 06/21/22 08:36 BP 110/60 06/21/22 08:00 Pulse Ox 99 06/21/22 08:36 O2 Del Method 06/21/22 08:36 O2 Flow Rate 2 06/21/22 08:36 Discharge Plan Discharge Patient Disposition: Home Condition: Stable Prescriptions: New metronidazole 500 mg tablet 500 mg PO BID 10 Days Qty: 20 0RF levofloxacin 750 mg tablet 750 mg PO DAILY 10 Days Qty: 10 0RF Continued metoprolol tartrate 25 mg tablet 12.5 mg PO BID Qty: 90 3RF montelukast 10 mg tablet 10 mg PO BEDTIME Qty: 30 0RF Rx Instructions: 340 B zolpidem 10 mg tablet 10 mg PO BEDTIME Qty: 30 1RF hydrocodone-acetaminophen 5-325 mg tablet 1 tab PO Q6H PRN (Reason: pain) 5 Days Qty: 14 0RF Rx Instructions: For Dr. Fernandez from an ER visit lactulose 10 gram/15 mL solution 10 g PO DAILY PRN (Reason: constipation) Qty: 237 0RF pantoprazole 40 mg tablet,delayed release (DR/EC) 40 mg PO DAILY Qty: 30 0RF Rx Instructions: 340 B albuterol sulfate 2.5 mg /3 mL (0.083 %) Solution For Nebulization 2.5 mg INHALATION Q4H PRN (Reason: Shortness Of Breath) albuterol sulfate 90 mcg/actuation Hfa Aerosol Inhaler 1 puff INHALATION QID PRN (Reason: Shortness Of Breath) promethazine 6.25 mg/5 mL Syrup 6.25 mg PO QID PRN (Reason: Cough) Anoro Ellipta 62.5-25 mcg/actuation blister with device 1 inh INHALATION BID potassium chloride 20 mEq tablet extended release 40 meq PO DAILY Qty: 30 0RF Rx Instructions: 340 B diltiazem HCl 120 mg capsule,extended release 24 hr 240 mg PO DAILY gabapentin 300 mg Capsule 300 mg PO BID alprazolam 1 mg tablet 0.5 mg PO BID PRN (Reason: Anxiety) Stool Softener-Laxative 8.6-50 mg tablet 1 tab PO DAILY guaifenesin 400 mg tablet 400 mg PO TID PRN (Reason: Congestion) cholecalciferol (vitamin D3) [Vitamin D3] 25 mcg (1,000 unit) Tablet 25 mcg PO DAILY diltiazem HCl 30 mg tablet 30 mg PO Q8H PRN (Reason: Blood Pressure) Qty: 60 0RF Rx Instructions: TAKE IF BP OVER 110 340 B ondansetron 4 mg tablet,disintegrating 4 mg PO Q6H PRN (Reason: nausea and vomiting) Qty: 14 0RF Changed furosemide [Lasix] 40 mg tablet 40 mg PO DAILY 30 Days Qty: 60 0RF Rx Instructions: 340 B Referrals: Go Frazier DO [Physician] - 2 weeks (Patient will need colonoscopy after an episode of diverticulitis) Ava Fernandez DO [Primary Care Provider] - 1-3 days Discharge Diet: GI Soft Discharge Activity: Increase activity as tolerated Patient Instructions: Opioid Safety Discharge Attestations Time Spent in Discharge Care*: less than 30 min Status at Discharge: Cognitive status at discharge: cognitively intact, Behavioral status at discharge: cooperative, Quality Metrics Clinical Quality Measures [ No reported AMI, CVA or VTE this stay] Coding Level of Care Code Acute [facility] DC note Diagnoses Acute blood loss anemia D62 Diverticulitis K57.92 Anemia D64.9 Atrial fibrillation I48.91 Atrial fibrillation with rapid ventricular response I48.91 Abdominal pain R10.9
[2022-06-21] MEDS: pantoprazole 40 mg SDV IVP (11:03)
[2022-06-21] MEDS: sodium chloride 0.9% 100 mL Bag 50 ML IV (13:14)
== END 2022-06-21 17:05 | disposition home or self-care (01) | DRG 378 ==
LOC: ER 16:46 → MEDSURG 16:52
PROVIDERS: Registered Nurse; Admitting Provider Internal Medicine; Emergency Provider Emergency Medicine; PCP Family Medicine; Visit Provider Internal Medicine
DX: K57.33 Diverticulitis of large intestine without perforation or abscess with bleeding (principal); D62 Acute posthemorrhagic anemia; I13.0 Hypertensive heart and chronic kidney disease with heart failure and stage 1 through stage 4 chronic kidney disease, or unspecified chronic kidney disease; I48.91 Unspecified atrial fibrillation; J44.9 Chronic obstructive pulmonary disease, unspecified; Z99.81 Dependence on supplemental oxygen; Z79.891 Long term (current) use of opiate analgesic; Z79.51 Long term (current) use of inhaled steroids; Z87.01 Personal history of pneumonia (recurrent); I49.5 Sick sinus syndrome; D63.1 Anemia in chronic kidney disease; Z86.16 Personal history of COVID-19; F17.200 Nicotine dependence, unspecified, uncomplicated; E11.22 Type 2 diabetes mellitus with diabetic chronic kidney disease; N18.9 Chronic kidney disease, unspecified; I50.810 Right heart failure, unspecified
CPT/HCPCS: 36415; 36430; 74176; 80048; 80053; 81003; 83605; 83690; 83735; 84145; 85014; 85018; 85025; 86140; 86850; 86900; 86920; 87040; 93005; 96365; 96367; 99285; C9113; J0744; J3490; J7050; P9016; P9040

== ENCOUNTER → 2022-06-27 16:28 | Outpatient (BNVA) | payer MEDICARE, BC, SELFPAY | PROVIDERS: PCP Family Medicine; Visit Provider Family Medicine | DX: D62 Acute posthemorrhagic anemia (principal); K57.92 Diverticulitis of intestine, part unspecified, without perforation or abscess without bleeding | CPT/HCPCS: 85025 ==

== ENCOUNTER 2022-07-28 14:51 | Emergency (ER) | payer MEDICARE, BC, SELFPAY ==
[2022-07-28] VITALS (10 sets, daily range): BP systolic 114–143; BP diastolic 67–72; PULSE 67–119; RESP 16–22; TEMP 36.9; O2SAT 90–100
--- NOTE | 2022-07-28 15:09 | ED_ITS ---
Documented by User: ZOLTAN Mack 07/28/22 15:36 HPI - Abdominal Pain General: Chief Complaint: Abdominal Pain Stated Complaint: abd pain, chest pain Time Seen by Provider: 07/28/22 14:58 Source: patient Mode of arrival: ambulatory Limitations: no limitations History of Present Illness: Patient is a 71-year-old female presents to ED today with a complaint of abdominal pain and stating my lungs hurt . Patient states she was admitted to the hospital last month for GI bleeding. According to documentation she was having a large amount of hematochezia with an acute dr op in her hemoglobin thus the need for hospitalization. While in the hospital patient states that her bleeding improved. She was given a blood transfusion. She states about a week after discharge her bleeding completely subsided and has not returned however she states she is continuing to have abdominal pain. Pain has been present for over a month now and does not seem to be improving. She do es have some component of chronic abdominal pain according to documentation. She was supposed to be receiving an outpatient colonoscopy through general surgery but this has not been completed yet. Patient also has a complaint of stating my lungs hurt . She states she has had a cough and low-grade fevers over the past 4 to 5 days. She also states she is having palpitations related to her atrial fibrillation. Patient states she used to take metoprolol but states this medication was discontinued. She discontinued her Xarelto secondary to the GI bleed. She states she is only taking diltiazem for the atrial fibrillation. MD elicited complaint: abdominal pain and other ( lung pain ) Pertinent past history: diverticulitis and gastrointestinal bleeding Onset (ago): week(s) Pain Consistency: constant Location: RUQ and RLQ Severity: moderate Radiation: none Migration to: no migration Exacerbating factors: nothing Relieving factors: nothing Associated Symptoms: Reports fever(s); Denies change in bowel habits, chills, dysuria, hematochezia, hematuria, hematemesis, melena, nausea, syncope and vomiting Related Data: Patient : No Review of Systems Const: Reports: fever(s) and fatigue; Denies: chills, body aches or malaise Eyes: Denies: change in vision, blurry vision or photophobia Card: Reports: chest pain (states my lungs hurt ) and irregular heart rhythm (reports hx of atrial fib); Denies: palpitations, edema, swelling of feet/ankles, lightheadedness, syncope or pre-syncope Resp: Reports: dyspnea, non-productive cough, pain on inspiration and chest congestion; Denies: wheezing, stridor or hemoptysis GI: Reports: abdominal pain; Denies: nausea, vomiting, hematemesis, change in bowel habits, hematochezia, melena or white/light colored stool : Denies: flank pain, dysuria or hematuria Musc: Denies: neck pain, back pain, extremity pain or joint pain Skin/Breast: Denies: rash Neuro: Denies: headache(s) or dizziness PFSH ED PFSH: Medical History Abdominal pain Abdominal pain Acute blood loss anemia Acute diastolic heart failure Acute kidney injury superimposed on CKD HERBER (acute kidney injury) Anemia Atrial fibrillation Atrial fibrillation Atrial fibrillation Atrial fibrillation with rapid ventricular response Atrial fibrillation with RVR Chronic anticoagulation Chronic kidney disease COPD (chronic obstructive pulmonary disease) Dehydration Diverticulitis Fatigue Generalized weakness GERD (gastroesophageal reflux disease) History of breast cancer History of syncope HTN (hypertension) with goal to be determined Hypokalemia Pneumonia Right heart failure Sinus node dysfunction T2DM (type 2 diabetes mellitus) Volume overload Surgical History History of knee replacement History of radical hysterectomy Hx of cholecystectomy Family History Mother , at age 62 Cancer Cervical Emphysema lung Father , at age 64 Black lung disease Social History Smoking and tobacco status: current every day smoker Alcohol intake: never Household members: spouse Marital status: / Current occupational status: retired History of recent travel: No Physical Exam Const: COMMON NORMALS: no acute distress, patient oriented x3, no limitations, alert and well nourished GENERAL APPEARANCE: cooperative ORIENTATION/CONSCIOUSNESS: Yes awake, Yes oriented to person, Yes oriented to place and Yes oriented to time HENMT: COMMON NORMALS: normocephalic and atraumatic HEAD & SCALP: normal to inspection, normocephalic and atraumatic Eye: GENERAL EYE: appearance normal, both eyes and all related structures Neck/C-Spine: COMMON NORMALS: full ROM, no lymphadenopathy, no meningeal signs and no JVD Chest: COMMONS NORMALS: normal inspection of the chest and normal palpation of entire chest wall Resp: COMMON NORMALS: normal respiratory effort and clear to auscultation bilaterally AUSCULTATION: clear to auscultation bilaterally Cardio: COMMON NORMALS: no JVD, regular rate and regular rhythm RATE: regular rate RHYTHM: regular rhythm GI: COMMON NORMALS: Normal to inspection, nondistended, normoactive bowel sounds present, Soft to palpation, No hepatosplenomegaly present and no masses INSPECTION: Yes normal to inspection AUSCULTATION: Yes normoactive bowel sounds PALPATION: Yes Soft to palpation, Yes Tenderness to palpation present (GI) (throughout R abdomen ), No Guarding due to palpation present (GI), No Rigid due to palpation and Yes No hepatosplenomegaly present : COMMON NORMALS: Yes no CVA tenderness BLADDER/KIDNEY EXAM: Yes no CVA tenderness Back/Pelvis: COMMON NORMALS: no CVA tenderness, thoracic and lumbar spine normal to inspection, no thoracic nor lumbar tenderness and thoraco-lumbar ROM normal Extremity: COMMON NORMALS: normal to inspection GENERAL: Yes normal exam except as noted Neuro: CON COMA SCALE: document GCS findings Con coma scale eye opening: Spontaneous [place] coma scale verbal response: Orientated [place] coma scale motor response: Obey commands [place] coma scale total score: 15 COMMON NORMALS: patient oriented x3, moves all extremities, no focal motor deficits and no sensory deficits noted SENSORIUM/ORIENTATION: Yes alert, Yes oriented to person, Yes oriented to place and Yes oriented to time MENINGEAL SIGNS: Yes no meningeal signs Skin: COMMON NORMALS: no rashes or lesions noted GENERAL SKIN EXAM: no rashes or lesions noted Course Vital Signs: Vital signs: Vital Signs Temperature 98.5 F 07/28/22 14:53 Pulse Rate 69 07/28/22 19:00 Respiratory Rate 18 07/28/22 19:00 Blood Pressure 143/72 07/28/22 19:00 Pulse Oximetry 100 07/28/22 19:00 Oxygen Delivery Me thod 07/28/22 19:00 Oxygen Flow Rate 3 07/28/22 19:00 MDM - Abdominal Pain Lab Data 07/28/22 15:40 07/28/22 15:40 Labs/Radiology: Radiology Impressions Chest X-Ray 07/28/22 15:09 IMPRESSION: Mild pulmonary hyperexpansion. No pneumonia. Abdomen/Pelvis CT 07/28/22 15:15 IMPRESSION: There is wall thickening of the ascending and transverse colon compatible with mild to moderate colitis. Mild wall thickening and collapse of the distal colon is noted in may reflect mild colitis versus lack of distension. No fluid collection, abscess or free air. Laboratory Results WBC 9.8 10^3/uL (4.0-10.0) 07/28/22 15:40 RBC 4.15 10^6/uL (4.1-5.3) 07/28/22 15:40 Hgb 11.7 g/dL (11.5-15.3) 07/28/22 15:40 Hct 38.7 % (37.0-47.0) 07/28/22 15:40 MCV 93.3 fl (81-99) 07/28/22 15:40 MCH 28.2 pg (28.0-34.0) 07/28/22 15:40 MCHC 30.2 g/dL (30.0-36.0) 07/28/22 15:40 RDW 16.2 % (12.1-15.1) H 07/28/22 15:40 Plt Count 469 10^3/cmm (130-400) H 07/28/22 15:40 MPV 9.0 fL (7.4-10.4) 07/28/22 15:40 Neut % (Auto) 68.1 % 07/28/22 15:40 Lymph % (Auto) 21.4 % 07/28/22 15:40 [place] % (Auto) 8.2 % 07/28/22 15:40 Eos % (Auto) 1.6 % 07/28/22 15:40 Baso % (Auto) 0.4 % 07/28/22 15:40 Neut # (Auto) 6.69 10^3/uL (1.8-7.7) 07/28/22 15:40 Lymph # (Auto) 2.1 10^3/uL (0.8-4.8) 07/28/22 15:40 [place] # (Auto) 0.8 10^3/uL (0.2-0.9) 07/28/22 15:40 Eos # (Auto) 0.2 10^3/uL (0.0-0.8) 07/28/22 15:40 Baso # (Auto) 0.0 10^3/uL (0.0-0.1) 07/28/22 15:40 Nucleated RBC % (auto) 0 % 07/28/22 15:40 Nucleated RBCs # 0.0 /100WBC 07/28/22 15:40 Sodium 140 mmol/L (136-145) 07/28/22 15:40 Potassium 4.2 mmol/L (3.5-5.1) 07/28/22 15:40 Chloride 102 mmol/L (98-107) 07/28/22 15:40 Carbon Dioxide 28 mmol/L (22-29) 07/28/22 15:40 Anion Gap 14.2 (5-19) 07/28/22 15:40 BUN 14 mg/dL (8-23) 07/28/22 15:40 Creatinine 0.8 mg/dL (0.5-0.9) 07/28/22 15:40 GFR Calculation Not Reportable 07/28/22 15:40 Glucose 93 mg/dL (65-115) 07/28/22 15:40 Calculated Osmolality 290 mOsm/kg (285-295) 07/28/22 15:40 Calcium 9.7 mg/dL (8.5-10.5) 07/28/22 15:40 Total Bilirubin 0.2 mg/dL (0.15-1.2) 07/28/22 15:40 AST 12 U/L (0-32) 07/28/22 15:40 ALT < 5 U/L (0-33) 07/28/22 15:40 Alkaline Phosphatase 90 U/L (35-105) 07/28/22 15:40 Troponin T Baseline 32 ng/L (0-10) H 07/28/22 15:40 Troponin T 120 Minute 31.44 ng/L (0-10) H 07/28/22 18:55 Delta Troponin T -0.56 ABS# (0-10) L 07/28/22 18:55 Total Protein 6.2 g/dL (6.6-8.7) L 07/28/22 15:40 Albumin 3.9 g/dL (3.5-5.2) 07/28/22 15:40 Globulin 2.3 g/dL (1.3-4.6) 07/28/22 15:40 Lipase 25 U/L (13-60) 07/28/22 15:40 Urine Color Yellow (Yellow) 07/28/22 15:30 Urine Appearance Clear (CLEAR) 07/28/22 15:30 Urine pH 5 (5-7) 07/28/22 15:30 Ur Specific [place] 1.025 (1.005-1.030) 07/28/22 15:30 Urine Protein Neg (Negative) 07/28/22 15:30 Urine Glucose (UA) Norm (Normal) 07/28/22 15:30 Urine Ketones 1+ (Negative) H 07/28/22 15:30 Urine Blood Neg (Negative) 07/28/22 15:30 Urine Nitrate Negative (Negative) 07/28/22 15:30 Urine Bilirubin Neg (Negative) 07/28/22 15:30 Urine Urobilinogen Norm mg/dL (Negative) 07/28/22 15:30 Ur Leukocyte Esterase Trace (Negative) H 07/28/22 15:30 Urine RBC 0-4 /hpf (0-2) H 07/28/22 15:30 Urine WBC 0-4 /hpf (0-5) H 07/28/22 15:30 Ur Squamous Epith Cells 0-4 /hpf (0-5) H 07/28/22 15:30 Calcium Oxalate Crystal 15-25 /hpf H 07/28/22 15:30 Amorphous Sediment Not Reportable 07/28/22 15:30 Urine Bacteria None /hpf (NONE) 07/28/22 15:30 Hyaline Casts Rare /lpf 07/28/22 15:30 Urine Mucus 1+ /hpf 07/28/22 15:30 Discharge Plan Discharge Patient Disposition: Home Clinical Impression: Colitis Condition: Stable Prescriptions: No Action zolpidem 10 mg tablet 10 mg PO BEDTIME Qty: 30 1RF hydrocodone-acetaminophen 5-325 mg tablet 1 tab PO Q8H PRN (Reason: pain) 30 Days Qty: 60 0RF Rx Instructions: Must last 30 days potassium chloride 20 mEq tablet extended release 40 meq PO DAILY Qty: 60 5RF lactulose 10 gram/15 mL solution 10 g PO DAILY PRN (Reason: constipation) Qty: 237 0RF pantoprazole 40 mg tablet,delayed release (DR/EC) 40 mg PO DAILY Qty: 30 0RF Rx Instructions: 340 B albuterol sulfate 2.5 mg /3 mL (0.083 %) Solution For Nebulization 2.5 mg INHALATION Q4H PRN (Reason: Shortness Of Breath) albuterol sulfate 90 mcg/actuation Hfa Aerosol Inhaler 1 puff INHALATION QID PRN (Reason: Shortness Of Breath) Anoro Ellipta 62.5-25 mcg/actuation blister with device 1 inh INHALATION BID Qty: 60 5RF diltiazem HCl 120 mg capsule,extended release 24 hr 240 mg PO QAM gabapentin 300 mg Capsule 300 mg PO BID sennosides-docusate sodium [Stool Softener-Laxative] 8.6-50 mg tablet 1 tab PO DAILY PRN (Reason: Constipation) furosemide [Lasix] 40 mg tablet 40 mg PO DAILY 30 Days Qty: 60 0RF Rx Instructions: 340 B alprazolam 0.5 mg tablet 0.5 mg PO BID PRN (Reason: Anxiety) Qty: 60 1RF promethazine-DM 6.25-15 mg/5 mL syrup 5 ml PO QID PRN (Reason: Cough) magnesium oxide 400 mg magnesium Tablet 400 mg PO DAILY montelukast 10 mg tablet 10 mg PO BEDTIME PRN (Reason: Allergy Symptoms) Rx Instructions: 340 B guaifenesin 400 mg tablet 400 mg PO TID PRN (Reason: Congestion) cholecalciferol (vitamin D3) [Vitamin D3] 25 mcg (1,000 unit) Tablet 25 mcg PO DAILY diltiazem HCl 30 mg tablet 30 mg PO Q8H PRN (Reason: Blood Pressure) Qty: 60 0RF Rx Instructions: TAKE IF BP OVER 110 340 B ondansetron 4 mg tablet,disintegrating 4 mg PO Q6H PRN (Reason: nausea and vomiting) Qty: 14 0RF Discharge Orders: Discharge ED (Routine); Ordered 07/28/22 Ordered By: Dinora Edwards Referrals: Ava Fernandez DO [Primary Care Provider] - Discharge Diet: Advance as tolerated and Usual diet Discharge Activity: Resume usual activity Patient Instructions: Colitis (ED), Opioid Safety, Pain Management Activity Restrictions/Additional Instructions: Please return to the emergency department for new concerning or worsening symptoms. You need to return to the emergency department if you are unable to tolerate oral fluids. If your symptoms worsen or if you develop blood in your stool you need to return to the emergency department Coding Level of Care Code ED Automobile Body Customizer for Emely Fwd Documented by User: JENNA Gonzalez 07/29/22 00:02 HPI - Abdominal Pain General: Chief Complaint: Abdominal Pain Stated Complaint: abd pain, chest pain Time Seen by Provider: 07/28/22 14:58 PFSH ED PFSH: Medical History Abdominal pain Abdominal pain Acute blood loss anemia Acute diastolic heart failure Acute kidney injury superimposed on CKD HERBER (acute kidney injury) Anemia Atrial fibrillation Atrial fibrillation Atrial fibrillation Atrial fibrillation with rapid ventricular response Atrial fibrillation with RVR Chronic anticoagulation Chronic kidney disease COPD (chronic obstructive pulmonary disease) Dehydration Diverticulitis Fatigue Generalized weakness GERD (gastroesophageal reflux disease) History of breast cancer History of syncope HTN (hypertension) with goal to be determined Hypokalemia Pneumonia Right heart failure Sinus node dysfunction T2DM (type 2 diabetes mellitus) Volume overload Surgical History History of knee replacement History of radical hysterectomy Hx of cholecystectomy Family History Mother , at age 62 Cancer Cervical Emphysema lung Father , at age 64 Black lung disease Social History Smoking and tobacco status: current every day smoker Alcohol intake: never Household members: spouse Marital status: / Current occupational status: retired History of recent travel: No Physical Exam Neuro: CON COMA SCALE: document GCS findings [place] coma scale total score: 15 Course Vital Signs: Vital signs: Vital Signs Temperature 98.5 F 07/28/22 14:53 Pulse Rate 69 07/28/22 19:00 Respiratory Rate 18 07/28/22 19:00 Blood Pressure 143/72 07/28/22 19:00 Pulse Oximetry 100 07/28/22 19:00 Oxygen Delivery Me thod 07/28/22 19:00 Oxygen Flow Rate 3 07/28/22 19:00 MDM - Abdominal Pain Medical Decision Making Rebeca is a 71-year-old female that was evaluated in the emergency department due to complaints of right lower quadrant abdominal pain. Patient has had multiple episodes of hematochezia and abdominal pain over the last 6 weeks. She has been evaluated numerous times in the emergency department, urgent care, primary care. On this visit she has had no hematochezia. She was recently taken off her Coumadin due to hematochezia. She has been set up with GI, Dr. Frazier for co lonoscopy; although, she has not had appointment yet. At the time of my evaluation at 1700, patient has undergone evaluation through laboratory studies my EKG, and CT abdomen pelvis. Laboratory studies do not reveal any leukocytosis, anemia, electrolyte disturbance, renal or liver dysfunction. She did have a troponin drawn which was within her baseline. 2- hour troponin unchanged. She underwent an EKG at 1514 that was reviewed by Laurie Blanton. This revealed a sinus rhythm with first-degree AV block which is unchanged from baseline. Her repeat EKG at 171 revealed a ventricular rate of 68 beats a minute, QTc 416. This was unchanged from her previous EKG. CT imaging was completed and reveals thickening of the ascending and transverse colon compatible with mild to moderate colitis. She has diverticulosis without evidence of diverticulitis. Due to these findings without systemic symptoms, we will forego the round of antibiotics. She was given Zofran here in the emergency department and will discharge home. If she is not tolerating p.o. fluids or foods or if her pain worsens, or if she develops hematochezia, then she is to return to the emergency department for reevaluation. She and her son are agreeable with this. Patient has been holding Coumadin for greater than 2 weeks and does not have follow-up for another month. I have advised them to call Sunday for an carlos ointment. If they are unable to successfully get her in earlier, she needs to make contact with primary care to discuss Coumadin hold further. They are agreeable. Patient's heart needs but ultimately cleared for discharge from Lab Data 07/28/22 15:40 07/28/22 15:40 Labs/Radiology: Radiology Impressions Chest X-Ray 07/28/22 15:09 IMPRESSION: Mild pulmonary hyperexpansion. No pneumonia. Abdomen/Pelvis CT 07/28/22 15:15 IMPRESSION: There is wall thickening of the ascending and transverse colon compatible with mild to moderate colitis. Mild wall thickening and collapse of the distal colon is noted in may reflect mild colitis versus lack of distension. No fluid collection, abscess or free air. Laboratory Results WBC 9.8 10^3/uL (4.0-10.0) 07/28/22 15:40 RBC 4.15 10^6/uL (4.1-5.3) 07/28/22 15:40 Hgb 11.7 g/dL (11.5-15.3) 07/28/22 15:40 Hct 38.7 % (37.0-47.0) 07/28/22 15:40 MCV 93.3 fl (81-99) 07/28/22 15:40 MCH 28.2 pg (28.0-34.0) 07/28/22 15:40 MCHC 30.2 g/dL (30.0-36.0) 07/28/22 15:40 RDW 16.2 % (12.1-15.1) H 07/28/22 15:40 Plt Count 469 10^3/cmm (130-400) H 07/28/22 15:40 MPV 9.0 fL (7.4-10.4) 07/28/22 15:40 Neut % (Auto) 68.1 % 07/28/22 15:40 Lymph % (Auto) 21.4 % 07/28/22 15:40 [place] % (Auto) 8.2 % 07/28/22 15:40 Eos % (Auto) 1.6 % 07/28/22 15:40 Baso % (Auto) 0.4 % 07/28/22 15:40 Neut # (Auto) 6.69 10^3/uL (1.8-7.7) 07/28/22 15:40 Lymph # (Auto) 2.1 10^3/uL (0.8-4.8) 07/28/22 15:40 [place] # (Auto) 0.8 10^3/uL (0.2-0.9) 07/28/22 15:40 Eos # (Auto) 0.2 10^3/uL (0.0-0.8) 07/28/22 15:40 Baso # (Auto) 0.0 10^3/uL (0.0-0.1) 07/28/22 15:40 Nucleated RBC % (auto) 0 % 07/28/22 15:40 Nucleated RBCs # 0.0 /100WBC 07/28/22 15:40 Sodium 140 mmol/L (136-145) 07/28/22 15:40 Potassium 4.2 mmol/L (3.5-5.1) 07/28/22 15:40 Chloride 102 mmol/L (98-107) 07/28/22 15:40 Carbon Dioxide 28 mmol/L (22-29) 07/28/22 15:40 Anion Gap 14.2 (5-19) 07/28/22 15:40 BUN 14 mg/dL (8-23) 07/28/22 15:40 Creatinine 0.8 mg/dL (0.5-0.9) 07/28/22 15:40 GFR Calculation Not Reportable 07/28/22 15:40 Glucose 93 mg/dL (65-115) 07/28/22 15:40 Calculated Osmolality 290 mOsm/kg (285-295) 07/28/22 15:40 Calcium 9.7 mg/dL (8.5-10.5) 07/28/22 15:40 Total Bilirubin 0.2 mg/dL (0.15-1.2) 07/28/22 15:40 AST 12 U/L (0-32) 07/28/22 15:40 ALT < 5 U/L (0-33) 07/28/22 15:40 Alkaline Phosphatase 90 U/L (35-105) 07/28/22 15:40 Troponin T Baseline 32 ng/L (0-10) H 07/28/22 15:40 Troponin T 120 Minute 31.44 ng/L (0-10) H 07/28/22 18:55 Delta Troponin T -0.56 ABS# (0-10) L 07/28/22 18:55 Total Protein 6.2 g/dL (6.6-8.7) L 07/28/22 15:40 Albumin 3.9 g/dL (3.5-5.2) 07/28/22 15:40 Globulin 2.3 g/dL (1.3-4.6) 07/28/22 15:40 Lipase 25 U/L (13-60) 07/28/22 15:40 Urine Color Yellow (Yellow) 07/28/22 15:30 Urine Appearance Clear (CLEAR) 07/28/22 15:30 Urine pH 5 (5-7) 07/28/22 15:30 Ur Specific [place] 1.025 (1.005-1.030) 07/28/22 15:30 Urine Protein Neg (Negative) 07/28/22 15:30 Urine Glucose (UA) Norm (Normal) 07/28/22 15:30 Urine Ketones 1+ (Negative) H 07/28/22 15:30 Urine Blood Neg (Negative) 07/28/22 15:30 Urine Nitrate Negative (Negative) 07/28/22 15:30 Urine Bilirubin Neg (Negative) 07/28/22 15:30 Urine Urobilinogen Norm mg/dL (Negative) 07/28/22 15:30 Ur Leukocyte Esterase Trace (Negative) H 07/28/22 15:30 Urine RBC 0-4 /hpf (0-2) H 07/28/22 15:30 Urine WBC 0-4 /hpf (0-5) H 07/28/22 15:30 Ur Squamous Epith Cells 0-4 /hpf (0-5) H 07/28/22 15:30 Calcium Oxalate Crystal 15-25 /hpf H 07/28/22 15:30 Amorphous Sediment Not Reportable 07/28/22 15:30 Urine Bacteria None /hpf (NONE) 07/28/22 15:30 Hyaline Casts Rare /lpf 07/28/22 15:30 Urine Mucus 1+ /hpf 07/28/22 15:30 Discharge Plan Discharge Patient Disposition: Home Clinical Impression: Colitis Condition: Stable Prescriptions: No Action zolpidem 10 mg tablet 10 mg PO BEDTIME Qty: 30 1RF hydrocodone-acetaminophen 5-325 mg tablet 1 tab PO Q8H PRN (Reason: pain) 30 Days Qty: 60 0RF Rx Instructions: Must last 30 days potassium chloride 20 mEq tablet extended release 40 meq PO DAILY Qty: 60 5RF lactulose 10 gram/15 mL solution 10 g PO DAILY PRN (Reason: constipation) Qty: 237 0RF pantoprazole 40 mg tablet,delayed release (DR/EC) 40 mg PO DAILY Qty: 30 0RF Rx Instructions: 340 B albuterol sulfate 2.5 mg /3 mL (0.083 %) Solution For Nebulization 2.5 mg INHALATION Q4H PRN (Reason: Shortness Of Breath) albuterol sulfate 90 mcg/actuation Hfa Aerosol Inhaler 1 puff INHALATION QID PRN (Reason: Shortness Of Breath) Anoro Ellipta 62.5-25 mcg/actuation blister with device 1 inh INHALATION BID Qty: 60 5RF diltiazem HCl 120 mg capsule,extended release 24 hr 240 mg PO QAM gabapentin 300 mg Capsule 300 mg PO BID sennosides-docusate sodium [Stool Softener-Laxative] 8.6-50 mg tablet 1 tab PO DAILY PRN (Reason: Constipation) furosemide [Lasix] 40 mg tablet 40 mg PO DAILY 30 Days Qty: 60 0RF Rx Instructions: 340 B alprazolam 0.5 mg tablet 0.5 mg PO BID PRN (Reason: Anxiety) Qty: 60 1RF promethazine-DM 6.25-15 mg/5 mL syrup 5 ml PO QID PRN (Reason: Cough) magnesium oxide 400 mg magnesium Tablet 400 mg PO DAILY montelukast 10 mg tablet 10 mg PO BEDTIME PRN (Reason: Allergy Symptoms) Rx Instructions: 340 B guaifenesin 400 mg tablet 400 mg PO TID PRN (Reason: Congestion) cholecalciferol (vitamin D3) [Vitamin D3] 25 mcg (1,000 unit) Tablet 25 mcg PO DAILY diltiazem HCl 30 mg tablet 30 mg PO Q8H PRN (Reason: Blood Pressure) Qty: 60 0RF Rx Instructions: TAKE IF BP OVER 110 340 B ondansetron 4 mg tablet,disintegrating 4 mg PO Q6H PRN (Reason: nausea and vomiting) Qty: 14 0RF Discharge Orders: Discharge ED (Routine); Ordered 07/28/22 Ordered By: Dinora Edwards Referrals: Ava Fernandez, [Primary Care Provider] - Discharge Diet: Advance as tolerated and Usual diet Discharge Activity: Resume usual activity Patient Instructions: Colitis (ED), Opioid Safety, Pain Management Activity Restrictions/Additional Instructions: Please return to the emergency department for new concerning or worsening symptoms. You need to return to the emergency department if you are unable to tolerate oral fluids. If your symptoms worsen or if you develop blood in your stool you need to return to the emergency department Coding Level of Care Code ED Automobile Body Customizer for Chg Fwd Documented by User: Torres Chairez DO 08/01/22 05:53 HPI - Abdominal Pain General: Chief Complaint: Abdominal Pain Stated Complaint: abd pain, chest pain Time Seen by Provider: 07/28/22 14:58 PFSH ED PFSH: Medical History Abdominal pain Abdominal pain Acute blood loss anemia Acute diastolic heart failure Acute kidney injury superimposed on CKD HERBER (acute kidney injury) Anemia Atrial fibrillation Atrial fibrillation Atrial fibrillation Atrial fibrillation with rapid ventricular response Atrial fibrillation with RVR Chronic anticoagulation Chronic kidney disease COPD (chronic obstructive pulmonary disease) Dehydration Diverticulitis Fatigue Generalized weakness GERD (gastroesophageal reflux disease) History of breast cancer History of syncope HTN (hypertension) with goal to be determined Hypokalemia Pneumonia Right heart failure Sinus node dysfunction T2DM (type 2 diabetes mellitus) Volume overload Surgical History History of knee replacement History of radical hysterectomy Hx of cholecystectomy Family History Mother , at age 62 Cancer Cervical Emphysema lung Father , at age 64 Black lung disease Social History Smoking and tobacco status: current every day smoker Alcohol intake: never Household members: spouse Marital status: / Current occupational status: retired History of recent travel: No Physical Exam Neuro: CON COMA SCALE: document GCS findings [place] coma scale total score: 15 Course Vital Signs: Vital signs: Vital Signs Temperature 98.5 F 07/28/22 14:53 Pulse Rate 69 07/28/22 19:00 Respiratory Rate 18 07/28/22 19:00 Blood Pressure 143/72 07/28/22 19:00 Pulse Oximetry 100 07/28/22 19:00 Oxygen Delivery Me thod 07/28/22 19:00 Oxygen Flow Rate 3 07/28/22 19:00 MDM - Abdominal Pain Medical Decision Making Rebeca is a 71-year-old female that was evaluated in the emergency department due to complaints of right lower quadrant abdominal pain. Patient has had multiple episodes of hematochezia and abdominal pain over the last 6 weeks. She has been evaluated numerous times in the emergency department, urgent care, primary care. On this visit she has had no hematochezia. She was recently taken off her Coumadin due to hematochezia. She has been set up with GI, Dr. Frazier for colonoscopy; although, she has not had appointment yet. At the time of my evaluation at 1700, patient has undergone evaluation through laboratory studies my EKG, and CT abdomen pelvis. Laboratory studies do not reveal any leukocytosis, anemia, electrolyte disturbance, renal or liver dysfunction. She did have a troponin drawn which was within her baseline. 2- hour troponin unchanged. She underwent an EKG at 1514 that was reviewed by Laurie Blanton. This revealed a sinus rhythm with first-degree AV block which is unchanged from baseline. Her repeat EKG at 1718 revealed a ventricular rate of 68 beats a minute, QTc 416. This was unchanged from her previous EKG. CT imaging was completed and reveals thickening of the ascending and transverse colon compatible with mild to moderate colitis. She has diverticulosis without evidence of diverticulitis. Due to these findings without systemic symptoms, we will forego the round of antibiotics. She was given Zofran here in the emergency department and will discharge home. If she is not tolerating p.o. fluids or foods or if her pain worsens, or if she develops hematochezia, then she is to return to the emergency department for reevaluation. She and her son are agreeable with this. Patient has been holding Coumadin for greater than 2 weeks and does not have follow-up for another month. I have advised them to call Sunday for an appointment. If they are unable to successfully get her in earlier, she needs to make contact with primary care to discuss Coumadin hold further. They are agreeable. Patient's heart needs but ultimately cleared for discharge from Chart reviewed and patient discussed with midlevel. Agree with assessment and plan. Lab Data 07/28/22 15:40 07/28/22 15:40 Labs/Radiology: Radiology Impressions Chest X-Ray 07/28/22 15:09 IMPRESSION: Mild pulmonary hyperexpansion. No pneumonia. Abdomen/Pelvis CT 07/28/22 15:15 IMPRESSION: There is wall thickening of the ascending and transverse colon compatible with mild to moderate colitis. Mild wall thickening and collapse of the distal colon is noted in may reflect mild colitis versus lack of distension. No fluid collection, abscess or free air. Laboratory Results WBC 9.8 10^3/uL (4.0-10.0) 07/28/22 15:40 RBC 4.15 10^6/uL (4.1-5.3) 07/28/22 15:40 Hgb 11.7 g/dL (11.5-15.3) 07/28/22 15:40 Hct 38.7 % (37.0-47.0) 07/28/22 15:40 MCV 93.3 fl (81-99) 07/28/22 15:40 MCH 28.2 pg (28.0-34.0) 07/28/22 15:40 MCHC 30.2 g/dL (30.0-36.0) 07/28/22 15:40 RDW 16.2 % (12.1-15.1) H 07/28/22 15:40 Plt Count 469 10^3/cmm (130-400) H 07/28/22 15:40 MPV 9.0 fL (7.4-10.4) 07/28/22 15:40 Neut % (Auto) 68.1 % 07/28/22 15:40 Lymph % (Auto) 21.4 % 07/28/22 15:40 [place] % (Auto) 8.2 % 07/28/22 15:40 Eos % (Auto) 1.6 % 07/28/22 15:40 Baso % (Auto) 0.4 % 07/28/22 15:40 Neut # (Auto) 6.69 10^3/uL (1.8-7.7) 07/28/22 15:40 Lymph # (Auto) 2.1 10^3/uL (0.8-4.8) 07/28/22 15:40 [place] # (Auto) 0.8 10^3/uL (0.2-0.9) 07/28/22 15:40 Eos # (Auto) 0.2 10^3/uL (0.0-0.8) 07/28/22 15:40 Baso # (Auto) 0.0 10^3/uL (0.0-0.1) 07/28/22 15:40 Nucleated RBC % (auto) 0 % 07/28/22 15:40 Nucleated RBCs # 0.0 /100WBC 07/28/22 15:40 Sodium 140 mmol/L (136-145) 07/28/22 15:40 Potassium 4.2 mmol/L (3.5-5.1) 07/28/22 15:40 Chloride 102 mmol/L (98-107) 07/28/22 15:40 Carbon Dioxide 28 mmol/L (22-29) 07/28/22 15:40 Anion Gap 14.2 (5-19) 07/28/22 15:40 BUN 14 mg/dL (8-23) 07/28/22 15:40 Creatinine 0.8 mg/dL (0.5-0.9) 07/28/22 15:40 GFR Calculation Not Reportable 07/28/22 15:40 Glucose 93 mg/dL (65-115) 07/28/22 15:40 Calculated Osmolality 290 mOsm/kg (285-295) 07/28/22 15:40 Calcium 9.7 mg/dL (8.5-10.5) 07/28/22 15:40 Total Bilirubin 0.2 mg/dL (0.15-1.2) 07/28/22 15:40 AST 12 U/L (0-32) 07/28/22 15:40 ALT < 5 U/L (0-33) 07/28/22 15:40 Alkaline Phosphatase 90 U/L (35-105) 07/28/22 15:40 Troponin T Baseline 32 ng/L (0-10) H 07/28/22 15:40 Troponin T 120 Minute 31.44 ng/L (0-10) H 07/28/22 18:55 Delta Troponin T -0.56 ABS# (0-10) L 02/10/23 18:55 Total Protein 6.2 g/dL (6.6-8.7) L 07/28/22 15:40 Albumin 3.9 g/dL (3.5-5.2) 07/28/22 15:40 Globulin 2.3 g/dL (1.3-4.6) 07/28/22 15:40 Lipase 25 U/L (13-60) 07/28/22 15:40 Urine Color Yellow (Yellow) 07/28/22 15:30 Urine Appearance Clear (CLEAR) 07/28/22 15:30 Urine pH 5 (5-7) 07/28/22 15:30 Ur Specific [place] 1.025 (1.005-1.030) 07/28/22 15:30 Urine Protein Neg (Negative) 07/28/22 15:30 Urine Glucose (UA) Norm (Normal) 07/28/22 15:30 Urine Ketones 1+ (Negative) H 07/28/22 15:30 Urine Blood Neg (Negative) 07/28/22 15:30 Urine Nitrate Negative (Negative) 07/28/22 15:30 Urine Bilirubin Neg (Negative) 07/28/22 15:30 Urine Urobilinogen Norm mg/dL (Negative) 07/28/22 15:30 Ur Leukocyte Esterase Trace (Negative) H 07/28/22 15:30 Urine RBC 0-4 /hpf (0-2) H 07/28/22 15:30 Urine WBC 0-4 /hpf (0-5) H 07/28/22 15:30 Ur Squamous Epith Cells 0-4 /hpf (0-5) H 07/28/22 15:30 Calcium Oxalate Crystal 15-25 /hpf H 07/28/22 15:30 Amorphous Sediment Not Reportable 07/28/22 15:30 Urine Bacteria None /hpf (NONE) 07/28/22 15:30 Hyaline Casts Rare /lpf 07/28/22 15:30 Urine Mucus 1+ /hpf 07/28/22 15:30 Discharge Plan Discharge Patient Disposition: Home Clinical Impression: Colitis Condition: Stable Prescriptions: No Action zolpidem 10 mg tablet 10 mg PO BEDTIME Qty: 30 1RF hydrocodone-acetaminophen 5-325 mg tablet 1 tab PO Q8H PRN (Reason: pain) 30 Days Qty: 60 0RF Rx Instructions: Must last 30 days potassium chloride 20 mEq tablet extended release 40 meq PO DAILY Qty: 60 5RF lactulose 10 gram/15 mL solution 10 g PO DAILY PRN (Reason: constipation) Qty: 237 0RF pantoprazole 40 mg tablet,delayed release (DR/EC) 40 mg PO DAILY Qty: 30 0RF Rx Instructions: 340 B albuterol sulfate 2.5 mg /3 mL (0.083 %) Solution For Nebulization 2.5 mg INHALATION Q4H PRN (Reason: Shortness Of Breath) albuterol sulfate 90 mcg/actuation Hfa Aerosol Inhaler 1 puff INHALATION QID PRN (Reason: Shortness Of Breath) Anoro Ellipta 62.5-25 mcg/actuation blister with device 1 inh INHALATION BID Qty: 60 5RF diltiazem HCl 120 mg capsule,extended release 24 hr 240 mg PO QAM gabapentin 300 mg Capsule 300 mg PO BID sennosides-docusate sodium [Stool Softener-Laxative] 8.6-50 mg tablet 1 tab PO DAILY PRN (Reason: Constipation) furosemide [Lasix] 40 mg tablet 40 mg PO DAILY 30 Days Qty: 60 0RF Rx Instructions: 340 B alprazolam 0.5 mg tablet 0.5 mg PO BID PRN (Reason: Anxiety) Qty: 60 1RF promethazine-DM 6.25-15 mg/5 mL syrup 5 ml PO QID PRN (Reason: Cough) magnesium oxide 400 mg magnesium Tablet 400 mg PO DAILY montelukast 10 mg tablet 10 mg PO BEDTIME PRN (Reason: Allergy Symptoms) Rx Instructions: 340 B guaifenesin 400 mg tablet 400 mg PO TID PRN (Reason: Congestion) cholecalciferol (vitamin D3) [Vitamin D3] 25 mcg (1,000 unit) Tablet 25 mcg PO DAILY diltiazem HCl 30 mg tablet 30 mg PO Q8H PRN (Reason: Blood Pressure) Qty: 60 0RF Rx Instructions: TAKE IF BP OVER 110 340 B ondansetron 4 mg tablet,disintegrating 4 mg PO Q6H PRN (Reason: nausea and vomiting) Qty: 14 0RF Discharge Orders: Discharge ED (Routine); Ordered 07/28/22 Ordered By: [facility] Das [facility] Referrals: Ava Fernandez DO [Primary Care Provider] - Discharge Diet: Advance as tolerated and Usual diet Discharge Activity: Resume usual activity Patient Instructions: Colitis (ED), Opioid Safety, Pain Management Activity Restrictions/Additional Instructions: Please return to the emergency department for new concerning or worsening symptoms. You need to return to the emergency department if you are unable to tolerate oral fluids. If your symptoms worsen or if you develop blood in your stool you need to return to the emergency department Coding Level of Care Code ED Automobile Body Customizer for Emely Silva
--- NOTE | 2022-07-28 15:09 | XR_ITS ---
WS: [id number] PORTABLE CHEST HISTORY: lung pain COMPARISON: 06/14/2022 Mild pulmonary hyperexpansion. No pneumonia. No pleural effusion or pneumothorax. Cardiac size: Normal. Mediastinum/Aorta: Mild atherosclerosis aorta. No osseous abnormality seen. XR/XR chest 1V portable [id number] IMPRESSION: Mild pulmonary hyperexpansion. No pneumonia.
--- NOTE | 2022-07-28 15:14 | ECG_ITS ---
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 Measurements Intervals [place] Rate: 73 P: 29 DC: 216 QRS: 2 QRSD: 83 T: 31 QT: 391 QTc: 433 Interpretive Statements SINUS RHYTHM WITH FIRST DEGREE AV BLOCK Compared to ECG 06/18/2022 14:14:16 First degree AV block now present Electronically Signed On 07-28-2022 16:20:32 [employer] by Ayo Leal M.D. [id number]
--- NOTE | 2022-07-28 15:15 | CTR_ITS ---
PROCEDURE INFORMATION: Exam: CT Abdomen And Pelvis With Contrast Exam date and time: 07/28/2022 4:51 PM Age: 71 years old Clinical indication: Abdominal pain; Acute; Prior surgery; Surgery date: 6+ months; Surgery type: Josseline; Bowel; Patient HX: HX of breast CA; Cervical CA; Additional info: Abdominal pain and diarrhea TECHNIQUE: Imaging protocol: Computed tomography of the abdomen and pelvis with contrast. Radiation optimization: All CT scans at this facility use at least one of these dose optimization techniques: automated exposure control; mA and/or kV adjustment per patient size (includes targeted exams where dose is matched to clinical indication); or iterative reconstruction. Contrast material: OMNI 350; Contrast volume: 100 ml; Contrast route: INTRAVENOUS (IV); Other protocol: This patient has received 7 known CTs and 0 known cardiac nuclear medicine studies in the 12 months prior to the current study. COMPARISON: CT abdomen pelvis wo con [id number] 06/18/2022 2:52 PM RADIATION DOSE METRICS: Total DLP (mGy-cm): 655.93 FINDINGS: Heart: The heart is enlarged. There is a small pericardial fluid collection present. Diaphragm: A small hiatal hernia is present. Liver: Unremarkable.No mass. Gallbladder and bile ducts: There has been a cholecystectomy. There is pneumobilia. There is no common bile duct dilation. Pancreas: The pancreas is normal. Spleen: The spleen is normal. The spleen is normal. Adrenal glands: The left adrenal gland is normal. Several unchanged tiny right adrenal calcifications are noted. Kidneys and ureters: There has been a right nephrectomy. There is no evidence of left hydronephrosis. There is no evidence of left renal calcifications. Stomach and bowel: The stomach is decompressed, preventing meaningful evaluation of wall thickness. Extensive diverticulosis is present in the distal colon. There is wall thickening of the ascending and transverse colon compatible with mild to moderate colitis. The descending and sigmoid colon are collapsed and the wall appears mildly thickened compatible with mild colitis versus lack of distension. No definite localized diverticulitis. There is no evidence of intestinal perforation or obstruction. Appendix: A normal appendix is identified. Intraperitoneal space: Unremarkable. No free air. No significant fluid collection. Vasculature: The aorta demonstrates moderate atherosclerotic calcification. Lymph nodes: Unremarkable.No enlarged lymph nodes. Urinary bladder: The bladder is normal. Reproductive: There has been a hysterectomy. Bones/joints: Unremarkable. No acute fracture. Soft tissues: Unremarkable. CT/CT abdomen pelvis w con* [id number] IMPRESSION: There is wall thickening of the ascending and transverse colon compatible with mild to moderate colitis. Mild wall thickening and collapse of the distal colon is noted in may reflect mild colitis versus lack of distension. No fluid collection, abscess or free air.
--- NOTE | 2022-07-28 16:05 | PC.PHAR ---
PT STATES SHE TAKES CARE OF HER OWN MEDICATION-PT STATES THE DCED HER XARELTO 15MG DAILY LAST FILLED 03/19/22 90D/S ABOUT 5 WEEKS AGO-PT STATES SHE TAKES DILTIAZEM ER 120MG TAKES 240MG QAM STATES DR ESTRADA INCREASED BUT DIDNT GIVE A NEW RX-EXT MED HISTORY SHOWS LAST FILLED 07/26/22 90D/S 120MG DAILY-PT STATES THE DR GUERDA HOLLAND DCED HER METOPROLOL TARTRATE 12.5MG BID-NOTES ARE MADE IN THE PHARMACY COMMENTS
[2022-07-28 16:17] LABS: Basophils % 0.4 %; Eosinophils # 0.2 10^3/uL (0.0-0.8); Eosinophils % 1.6 %; Hematocrit 38.7 % (37.0-47.0); Hemoglobin 11.7 g/dL (11.5-15.3); Lymphocytes # 2.1 10^3/uL (0.8-4.8); Lymphocytes % 21.4 %; Mean Corpuscular HGB Conc 30.2 g/dL (30.0-36.0); Mean Corpuscular Hemoglobin 28.2 pg (28.0-34.0); Mean Corpuscular Volume 93.3 fl (81-99); Monocytes # 0.8 10^3/uL (0.2-0.9); Monocytes % 8.2 %; Neutrophils # 6.69 10^3/uL (1.8-7.7); Neutrophils % 68.1 %; Nucleated Red Blood Cells % 0 %; Platelet Count 469 10^3/cmm (130-400); Red Blood Count 4.15 10^6/uL (4.1-5.3); Red Cell Distribution Width 16.2 % (12.1-15.1); White Blood Count 9.8 10^3/uL (4.0-10.0)
[2022-07-28 16:25] LABS: Troponin(5th) Baseline 32 ng/L (0-10)
[2022-07-28 16:27] LABS: Alanine Aminotransferase < 5 U/L (0-33); Albumin Level 3.9 g/dL (3.5-5.2); Alkaline Phosphatase 90 U/L (35-105); Anion Gap 14.2 (5-19); Aspartate Amino Transferase 12 U/L (0-32); Blood Urea Nitrogen 14 mg/dL (8-23); Calcium 9.7 mg/dL (8.5-10.5); Carbon Dioxide 28 mmol/L (22-29); Chloride 102 mmol/L (98-107); Globulin 2.3 g/dL (1.3-4.6); Glucose 93 mg/dL (65-115); Lipase 25 U/L (13-60); Osmolality Calculated 290 mOsm/kg (285-295); Potassium 4.2 mmol/L (3.5-5.1); Sodium 140 mmol/L (136-145); Total Bilirubin 0.2 mg/dL (0.15-1.2); Total Protein 6.2 g/dL (6.6-8.7)
[2022-07-28 16:29] LABS: Add Urine Microscopic? YES; Bilirubin Urine Neg (Negative); Blood Urine Neg (Negative); Glucose Urine UA Norm (Normal); Ketones Urine 1+ (Negative); Leukocyte Esterase Urine Trace (Negative); Nitrate Urine Negative (Negative); Protein Urine Neg (Negative); Specific Gravity, Urine 1.025 (1.005-1.030); Urine Appearance Clear (CLEAR); Urine Color Yellow (Yellow); Urobilinogen Urine Norm (Negative); pH Urine 5 (5-7)
[2022-07-28 16:30] LABS: Calcium Oxalate Crystals Urine 15-25 /hpf; Mucus Urine 1+ /hpf; RBC Urine 0-4 /hpf (0-2); Squamous Epithelial Cell Urine 0-4 /hpf (0-5); WBC Urine 0-4 /hpf (0-5)
[2022-07-28 16:31] LABS: Hyaline Casts Urine RARE /lpf
[2022-07-28 16:32] LABS: Add Urine Culture? No
--- NOTE | 2022-07-28 17:10 | ECG_ITS ---
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 Measurements Intervals [place] Rate: 68 P: 37 IN: 210 QRS: -3 QRSD: 85 T: 13 QT: 399 QTc: 425 Interpretive Statements SINUS RHYTHM WITH FIRST DEGREE AV BLOCK Compared to ECG 07/28/2022 15:14:59 No significant changes Electronically Signed On 07-28-2022 21:57:23 [employer] by Harsh Hernandez M.D. [id number]
[2022-07-28] MEDS: iohexol 350 mg/mL 500 mL Btl (per mL) IV (17:15)
[2022-07-28] MEDS: ondansetron 2 mg/ML SDV 2 mL 4 MG IVP (17:22)
--- NOTE | 2022-07-28 19:05 | PC.NURSE ---
NURSE ARRIVED IN ROOM AND FAMILY MEMBER ASKED NURSE, PLEASE CHECK MY WORK, SHE WAS NOT ON OXYGEN WHEN I GOT IN HERE AND PROBABLY BEEN LIKE THAT FOR AN HOUR. NURSE CHECKED AND PT WAS ON 2.5L AND MOVED UP TO 3L (HOME DOSE). FAMILY MEMBER STATES THAT WHEN PT GOT BACK FROM CT, SHE WAS NEVER PUT ON HER 3L. FAMILY MEMBER STATED TO NURSE SHE WAS ON 91% WHEN I CAME IN HERE AND WAS UPSET WAS PATIENT. NURSE EXPLAINED TO PT THAT SHE HAS CHRONIC AFIB AND THAT 91% IS NOT CRITICALLY LOW; HOWEVER, NURSE APOLOGIZED AND WOULD MAKE SURE IT WAS HANDLED. PT'S VITALS WERE REVIEWED ON MONITOR AND PT DID NOT FALL FROM 90% IN THAT TIME SHE WAS OFF OF HER OXYGEN. REVIEWED THIS WITH WAITER/WAITRESS HEAD PROVIDER AND CHARGE NURSE.
[2022-07-28 19:24] LABS: Troponin 5 2HR 31.44 ng/L (0-10)
[2022-07-28 19:39] LABS: Troponin 5 2HR Delta -0.56 ABS# (0-10)
[2022-07-28] MEDS: ondansetron 4 MG Tablet PO (20:11)
== END 2022-07-28 20:13 | disposition home or self-care (01) ==
PROVIDERS: Physician Assistant; Emergency Provider Nurse Practitioner; PCP Family Medicine
DX: K52.9 Noninfective gastroenteritis and colitis, unspecified (principal); F17.210 Nicotine dependence, cigarettes, uncomplicated; I13.0 Hypertensive heart and chronic kidney disease with heart failure and stage 1 through stage 4 chronic kidney disease, or unspecified chronic kidney disease; E11.22 Type 2 diabetes mellitus with diabetic chronic kidney disease; N18.9 Chronic kidney disease, unspecified; I50.31 Acute diastolic (congestive) heart failure; J44.9 Chronic obstructive pulmonary disease, unspecified; Z85.3 Personal history of malignant neoplasm of breast
CPT/HCPCS: 36415; 71045; 74177; 80053; 81001; 83690; 84484; 85025; 93005; 96374; 99285; J2405; Q0162; Q9967

== ENCOUNTER → 2022-08-08 13:15 | Outpatient (BNVA) | payer MEDICARE, BC, SELFPAY | PROVIDERS: PCP Family Medicine; Visit Provider Surgery | DX: R10.31 Right lower quadrant pain (principal); K92.1 Melena; K21.9 Gastro-esophageal reflux disease without esophagitis; R11.2 Nausea with vomiting, unspecified | CPT/HCPCS: 99203 ==

== ENCOUNTER → 2022-08-10 11:04 | Outpatient (BNVA) | payer MEDICARE, BC, SELFPAY | PROVIDERS: PCP Family Medicine; Visit Provider Surgery | DX: R10.31 Right lower quadrant pain (principal); R19.7 Diarrhea, unspecified | CPT/HCPCS: 83630; 87338; 87493; 87506 ==

== ENCOUNTER → 2022-08-16 17:02 | Outpatient (BNVA) | payer MEDICARE, BC, SELFPAY | PROVIDERS: PCP Family Medicine; Visit Provider Surgery | DX: R10.31 Right lower quadrant pain (principal) | CPT/HCPCS: 99212 ==

== ENCOUNTER → 2022-09-18 15:27 | Outpatient (BNVA) | payer MEDICARE, BC, SELFPAY | PROVIDERS: PCP Family Medicine; Visit Provider Family Medicine | DX: E11.9 Type 2 diabetes mellitus without complications (principal); K57.92 Diverticulitis of intestine, part unspecified, without perforation or abscess without bleeding; F41.9 Anxiety disorder, unspecified; I48.91 Unspecified atrial fibrillation; K21.9 Gastro-esophageal reflux disease without esophagitis; G47.00 Insomnia, unspecified | CPT/HCPCS: 80053; 83036 ==

== ENCOUNTER 2022-11-06 13:45 | Emergency (ER) | payer MEDICARE, BC, SELFPAY ==
[2022-11-06 13:50] VITALS: BP 113/62; PULSE 57; RESP 16; TEMP 36.7; O2SAT 97; BMI 25.8
[2022-11-06 14:24] VITALS: BP 97/61; PULSE 58; RESP 17; TEMP 36.9; O2SAT 99
[2022-11-06 15:19] LABS: Basophils % 0.3 %; Eosinophils # 0.1 10^3/uL (0.0-0.8); Eosinophils % 1.4 %; Hematocrit 39.3 % (37.0-47.0); Hemoglobin 12.5 g/dL (11.5-15.3); Lymphocytes # 2.1 10^3/uL (0.8-4.8); Lymphocytes % 21.7 %; Mean Corpuscular HGB Conc 31.8 g/dL (30.0-36.0); Mean Corpuscular Hemoglobin 28.5 pg (28.0-34.0); Mean Corpuscular Volume 89.7 fl (81-99); Mean Platelet Volume 8.6 fL (7.4-10.4); Monocytes # 0.7 10^3/uL (0.2-0.9); Monocytes % 7.1 %; Neutrophils # 6.73 10^3/uL (1.8-7.7); Neutrophils % 69.1 %; Nucleated Red Blood Cells % 0 %; Platelet Count 385 10^3/cmm (130-400); Red Blood Count 4.38 10^6/uL (4.1-5.3); Red Cell Distribution Width 15.6 % (12.1-15.1); White Blood Count 9.7 10^3/uL (4.0-10.0)
[2022-11-06 15:34] LABS: Erythrocyte Sedimentation Rate 21 mm/hr (0-15)
[2022-11-06 15:40] LABS: Alanine Aminotransferase < 5 U/L (0-33); Alkaline Phosphatase 120 U/L (35-105); Anion Gap 14.1 (5-19); Aspartate Amino Transferase 9 U/L (0-32); Blood Urea Nitrogen 12 mg/dL (8-23); C Reactive Protein 12.3 mg/L (0.0-4.9); Calcium 9.8 mg/dL (8.5-10.5); Carbon Dioxide 29 mmol/L (22-29); Chloride 100 mmol/L (98-107); Globulin 2.6 g/dL (1.3-4.6); Glucose 92 mg/dL (65-115); Lipase 33 U/L (13-60); Osmolality Calculated 287 mOsm/kg (285-295); Potassium 4.1 mmol/L (3.5-5.1); Sodium 139 mmol/L (136-145); Total Bilirubin 0.3 mg/dL (0.15-1.2); Total Protein 6.6 g/dL (6.6-8.7)
[2022-11-06 17:30] VITALS: O2SAT 100
--- NOTE | 2022-11-06 17:57 | CTR_ITS ---
PROCEDURE INFORMATION: Exam: CT Abdomen And Pelvis With Contrast Exam date and time: 11/06/2022 7:04 PM Age: 71 years old Clinical indication: Abdominal pain; Localized; Right; Prior surgery; Surgery date: 6+ months; Surgery type: Josseline; Additional info: Right side abdominal pain, n/v TECHNIQUE: Imaging protocol: Computed tomography of the abdomen and pelvis with contrast. Radiation optimization: All CT scans at this facility use at least one of these dose optimization techniques: automated exposure control; mA and/or kV adjustment per patient size (includes targeted exams where dose is matched to clinical indication); or iterative reconstruction. Contrast material: OMNI 350; Contrast volume: 100 ml; Contrast route: INTRAVENOUS (IV); REPORTING DATA: Count of CT and Cardiac NM exams in prior 12 months: This patient has received 8 known CTs and 0 known cardiac nuclear medicine studies in the 12 months prior to the current study. COMPARISON: CT abdomen pelvis w con* [id number] 07/28/2022 4:51 PM RADIATION DOSE METRICS: Total DLP (mGy-cm): 584 FINDINGS: Lungs: Lung windows demonstrate mild bronchiectasis anterior right lung base. Mild nonspecific posterior pleural thickening. Liver: Liver shows no focal mass. Gallbladder and bile ducts: Surgical clips gallbladder fossa prior cholecystectomy. Pneumobilia, chronic with prior exam. Dilatation of the common hepatic/bile duct of approximally 12 mm is seen post cholecystectomy noted with prior exam. Pancreas: Mild prominence of the pancreatic duct, chronic with prior exam. Pancreas is otherwise unremarkable. Spleen: Normal. No splenomegaly. Adrenal glands: Normal. No mass. Kidneys and ureters: Previous right nephrectomy, as noted with prior exam. Left kidney shows no acute abnormality. Stomach and bowel: Colonic diverticulosis without CT findings of diverticulitis. No dilatation of bowel loops or bowel distention or obstruction. Moderate stool in the colon. No abnormal bowel wall thickening. Appendix: No evidence of appendicitis. Intraperitoneal space: Unremarkable. No free air. No significant fluid collection. Vasculature: Atherosclerotic vascular disease without significant aneurysmal dilatation of the abdominal aorta. Lymph nodes: Unremarkable. No enlarged lymph nodes. Urinary bladder: Partially distended urinary bladder without focal abnormality. Reproductive: Suggestion of prior hysterectomy.. Bones/joints: Spondylotic change lower lumbar spine Soft tissues: Unremarkable. CT/CT abdomen pelvis w con* [id number] IMPRESSION: 1. Previous cholecystectomy with pneumobilia and prominence of the common hepatic/bile duct along with mild prominence of the pancreatic duct, appearing chronic with prior exam. 2. Previous right nephrectomy. 3. Previous hysterectomy. 4. Colonic diverticulosis without CT findings of diverticulitis or other inflammatory change. Moderate stool volume. 5. Atherosclerotic vascular disease without significant aneurysmal dilatation of the abdominal aorta.
--- NOTE | 2022-11-06 17:57 | XRR_ITS ---
PROCEDURE INFORMATION: Exam: XR Chest Exam date and time: 11/06/2022 6:05 PM Age: 71 years old Clinical indication: Shortness of breath; Additional info: Left lower lobe crackles upon auscultation TECHNIQUE: Imaging protocol: Radiologic exam of the chest. Views: 1 view. COMPARISON: CR XR chest 1V portable [id number] 07/28/2022 3:14 PM FINDINGS: Lungs: Suggestion of hyperexpansion or obstructive pulmonary disease as noted with prior exam. No focal infiltrate or consolidation. Pleural spaces: Unremarkable. No pleural effusion. No pneumothorax. Heart/Mediastinum: Mild cardiomegaly. Vasculature: Mild arteriosclerosis of the thoracic aorta. Bones/joints: Visualized osseous structures show no acute abnormality. Soft tissues: Surgical clips in the right axillary region. Other findings: No significant change with prior exam. XR/XR chest 1V portable [id number] IMPRESSION: 1. Mild cardiomegaly. 2. Suggestion of hyperexpansion as noted with prior exam, and without acute findings.
--- NOTE | 2022-11-06 17:59 | W.ED.ABDPA2 ---
HPI - Abdominal Pain General: Chief Complaint: Abdominal Pain Stated Complaint: abd pain Time Seen by Provider: 11/06/22 17:38 History of Present Illness: Patient is a 71-year-old female comes in the ED with abdominal pain. Patient says she has been having on and off abdominal pain now for the past 2 months. Over the last week her abdominal pain is gotten worse. Pain is generalized throughout the abdomen but she says most of her pain is on the right side of her abdomen. She does endorse some pain radiating to the right side of her back. She rates her pain currently a 10 out of 10. Endorses nausea and vomiting as well. Pain worsens after she eats, so she has had decreased appetite over the past couple months. Patient endorses constipation and says her last bowel movement was approximately 2 days ago. She described her last bowel movement small and hard. Denies any diarrhea or blood in the stool. Patient has seen Dr. Frazier for abdominal pain back on August 16, 2022 and he wants to do an elective EGD, pending patient gets a cardiac ablation and pacemaker first. Patient said she went to see cardiology and she had a fever so they have not scheduled an ablation or pacemaker placement yet. Associated Symptoms: Reports constipation, nausea and vomiting; Denies chills, diarrhea, dysuria, fever(s), hematochezia and hematuria Review of Systems Const: Denies: fever(s), chills or fatigue Eyes: Denies: change in vision or eye discomfort ENMT: Denies: throat pain, odynophagia, nasal discharge or nasal congestion Card: Denies: chest pain, palpitations, edema, swelling of feet/ankles, dyspnea on exertion or orthopnea Resp: Denies: dyspnea, productive cough or non-productive cough GI: Reports: abdominal pain, nausea, vomiting and constipation; Denies: diarrhea or hematochezia : Denies: flank pain, dysuria or hematuria Musc: Denies: neck pain, back pain or extremity swelling Skin/Breast: Denies: rash or new lesions Neuro: Denies: headache(s), numbness in extremities or weakness in extremities PFS ED PFSH: Medical History Abdominal pain Abdominal pain Acute blood loss anemia Acute diastolic heart failure Acute kidney injury superimposed on CKD HERBER (acute kidney injury) Anemia Atrial fibrillation Atrial fibrillation Atrial fibrillation Atrial fibrillation with rapid ventricular response Atrial fibrillation with RVR Chronic anticoagulation Chronic kidney disease COPD (chronic obstructive pulmonary disease) Dehydration Diverticulitis Fatigue Generalized weakness GERD (gastroesophageal reflux disease) History of breast cancer History of syncope HTN (hypertension) with goal to be determined Hypokalemia Pneumonia Right heart failure Sinus node dysfunction T2DM (type 2 diabetes mellitus) Volume overload Surgical History History of knee replacement History of lumpectomy of right breast lymph node removal History of radical hysterectomy Hx of cholecystectomy Family History Mother , at age 62 Cancer Cervical Emphysema lung Father , at age 64 Black lung disease Social History Smoking and tobacco status: current every day smoker Alcohol intake: never Substance/Drug Use: never Household members: spouse Marital status: / Current occupational status: retired Physical Exam Const: COMMON NORMALS: no acute distress, patient oriented x3 and alert HENMT: COMMON NORMALS: normocephalic HEAD & SCALP: normocephalic MOUTH: Normal oral and palatal mucosa present THROAT: posterior oropharynx normal and uvula midline Neck/C-Spine: COMMON NORMALS: supple GENERAL: Yes normal visual inspection Resp: COMMON NORMALS: normal respiratory effort, No retractions, No use of accessory muscles and clear to auscultation bilaterally AUSCULTATION: clear to auscultation bilaterally Cardio: COMMON NORMALS: regular rate, regular rhythm, S1 normal heart sound present, S2 normal heart sound present, No gallops present (Cardio), No clicks present (Cardio), No murmurs present (Cardio) and Peripheral pulses 2+ throughout RATE: regular rate RHYTHM: regular rhythm HEART SOUNDS: S1 normal heart sound present and S2 normal heart sound present PERIPHERAL PULSES: Peripheral pulses 2+ throughout GI: COMMON NORMALS: Normal to inspection, nondistended, normoactive bowel sounds present, Soft to palpation and no masses PALPATION: Yes Soft to palpation and Yes Tenderness to palpation present (GI) Details: RLQ and RUQ : COMMON NORMALS: Yes no CVA tenderness BLADDER/KIDNEY EXAM: Yes no CVA tenderness Back/Pelvis: COMMON NORMALS: no CVA tenderness Extremity: COMMON NORMALS: normal to inspection Neuro: COMMON NORMALS: patient oriented x3 SENSORIUM/ORIENTATION: Yes alert GAIT: Yes Normal gait present Skin: GENERAL SKIN EXAM: dry skin Course Vital Signs: Vital signs: Vital Signs Temperature 98.5 F 11/06/22 14:24 Pulse Rate 55 L 11/06/22 20:00 Respiratory Rate 12 11/06/22 18:47 Blood Pressure 97/61 11/06/22 14:24 Pulse Oximetry 97 11/06/22 20:00 Oxygen Delivery Me thod Nasal Cannula 11/06/22 20:00 Oxygen Flow Rate 3 11/06/22 20:00 MDM - Abdominal Pain Medical Decision Making Patient is a 71-year-old female comes in the ED with abdominal pain. Patient says she has been having on and off abdominal pain now for the past 2 months. Over the last week her abdominal pain is gotten worse. Pain is generalized throughout the abdomen but she says most of her pain is on the right side of her abdomen. She does endorse some pain radiating to the right side of her back. She rates her pain currently a 10 out of 10. Endorses nausea and vomiting as well. Pain worsens after she eats, so she has had decreased appetite over the past couple months. Patient endorses constipation and says her last bowel movement was approximately 2 days ago. She described her last bowel movement small and hard. Denies any diarrhea or blood in the stool. Patient has seen Dr. Frazier for abdominal pain back on August 16, 2022 and he wants to do an elective EGD, pending patient gets a cardiac ablation and pacemaker first. Patient said she went to see cardiology and she had a fever so they have not scheduled an ablation or pacemaker placement yet. Vitals are stable. Exam shows some generalized mild right-sided tenderness of the abdomen but no signs of any acute abdomen and the rest of exam is benign. Labs are all unremarkable. Chest x-ray shows no acute findings. CT of abdomen pelvis shows no acute findings. Patient's symptoms were controlled with some IV pain meds and nausea meds. She was stable for discharge home and diagnosed with abdominal pain, which she has been dealing with for the past 3+ months and has seen Dr. Frazier about.. She was told to follow-up with her PCP within the next week for reevaluation. She was told to continue following up with cardiology to get pacemaker and ablation done so she can then follow-up with Dr. Frazier to do an EGD. She was sent home with a prescription for tramadol and nausea med. Return ED precautions given. Patient understood and agreed with plan. Lab Data I reviewed the patient's lab results. 11/06/22 15:10 11/06/22 15:10 Labs/Radiology: Radiology Impressions Abdomen/Pelvis CT 11/06/22 17:57 IMPRESSION: 1. Previous cholecystectomy with pneumobilia and prominence of the common hepatic/bile duct along with mild prominence of the pancreatic duct, appearing chronic with prior exam. 2. Previous right nephrectomy. 3. Previous hysterectomy. 4. Colonic diverticulosis without CT findings of diverticulitis or other inflammatory change. Moderate stool volume. 5. Atherosclerotic vascular disease without significant aneurysmal dilatation of the abdominal aorta. Chest X-Ray 11/06/22 17:57 IMPRESSION: 1. Mild cardiomegaly. 2. Suggestion of hyperexpansion as noted with prior exam, and without acute findings. Laboratory Results WBC 9.7 10^3/uL (4.0-10.0) 11/06/22 15:10 RBC 4.38 10^6/uL (4.1-5.3) 11/06/22 15:10 Hgb 12.5 g/dL (11.5-15.3) 11/06/22 15:10 Hct 39.3 % (37.0-47.0) 11/06/22 15:10 MCV 89.7 fl (81-99) 11/06/22 15:10 MCH 28.5 pg (28.0-34.0) 11/06/22 15:10 MCHC 31.8 g/dL (30.0-36.0) 11/06/22 15:10 RDW 15.6 % (12.1-15.1) H 11/06/22 15:10 Plt Count 385 10^3/cmm (130-400) 11/06/22 15:10 MPV 8.6 fL (7.4-10.4) 11/06/22 15:10 Neut % (Auto) 69.1 % 11/06/22 15:10 Lymph % (Auto) 21.7 % 11/06/22 15:10 [place] % (Auto) 7.1 % 11/06/22 15:10 Eos % (Auto) 1.4 % 11/06/22 15:10 Baso % (Auto) 0.3 % 11/06/22 15:10 Neut # (Auto) 6.73 10^3/uL (1.8-7.7) 11/06/22 15:10 Lymph # (Auto) 2.1 10^3/uL (0.8-4.8) 11/06/22 15:10 [place] # (Auto) 0.7 10^3/uL (0.2-0.9) 11/06/22 15:10 Eos # (Auto) 0.1 10^3/uL (0.0-0.8) 11/06/22 15:10 Baso # (Auto) 0.0 10^3/uL (0.0-0.1) 11/06/22 15:10 Nucleated RBC % (auto) 0 % 11/06/22 15:10 Nucleated RBCs # 0.0 /100WBC 11/06/22 15:10 ESR 21 mm/hr (0-15) H 11/06/22 15:10 Sodium 139 mmol/L (136-145) 11/06/22 15:10 Potassium 4.1 mmol/L (3.5-5.1) 11/06/22 15:10 Chloride 100 mmol/L (98-107) 11/06/22 15:10 Carbon Dioxide 29 mmol/L (22-29) 11/06/22 15:10 Anion Gap 14.1 (5-19) 11/06/22 15:10 BUN 12 mg/dL (8-23) 11/06/22 15:10 Creatinine 0.9 mg/dL (0.5-0.9) 11/06/22 15:10 GFR Calculation Not Reportable 11/06/22 15:10 Glucose 92 mg/dL (65-115) 11/06/22 15:10 Calculated Osmolality 287 mOsm/kg (285-295) 11/06/22 15:10 Calcium 9.8 mg/dL (8.5-10.5) 11/06/22 15:10 Total Bilirubin 0.3 mg/dL (0.15-1.2) 11/06/22 15:10 AST 9 U/L (0-32) 11/06/22 15:10 ALT < 5 U/L (0-33) 11/06/22 15:10 Alkaline Phosphatase 120 U/L (35-105) H 11/06/22 15:10 C-Reactive Protein 12.3 mg/L (0.0-4.9) H 11/06/22 15:10 Total Protein 6.6 g/dL (6.6-8.7) 11/06/22 15:10 Albumin 4.0 g/dL (3.5-5.2) 11/06/22 15:10 Globulin 2.6 g/dL (1.3-4.6) 11/06/22 15:10 Lipase 33 U/L (13-60) 11/06/22 15:10 Urine Color Yellow (Yellow) 11/06/22 18:08 Urine Appearance Clear (CLEAR) 11/06/22 18:08 Urine pH 6 (5-7) 11/06/22 18:08 Ur Specific [place] 1.015 (1.005-1.030) 11/06/22 18:08 Urine Protein Neg (Negative) 11/06/22 18:08 Urine Glucose (UA) Norm (Normal) 11/06/22 18:08 Urine Ketones Negative (Negative) 11/06/22 18:08 Urine Blood Neg (Negative) 11/06/22 18:08 Urine Nitrate Negative (Negative) 11/06/22 18:08 Urine Bilirubin Neg (Negative) 11/06/22 18:08 Urine Urobilinogen Norm mg/dL (Negative) 11/06/22 18:08 Ur Leukocyte Esterase Negative (Negative) 11/06/22 18:08 Discharge Plan Discharge Patient Disposition: Home Clinical Impression: Abdominal pain Qualifiers: Abdominal location: generalized Qualified Code(s): R10.84 - Generalized abdominal pain Condition: Stable Prescriptions: New metoclopramide HCl 10 mg tablet 10 mg PO Q6H PRN (Reason: nausea and vomiting) Qty: 20 0RF sucralfate 1 gram tablet 1 g PO TID 14 Days Qty: 42 0RF No Action peg 3350-electrolytes [Golytely] 236-22.74-6.74 -5.86 gram recon soln 240 ml PO Q10M Qty: 4000 0RF Rx Instructions: until fecal effluent is clear lactulose 10 gram/15 mL solution 10 g PO DAILY PRN (Reason: constipation) Qty: 237 0RF metoprolol tartrate 25 mg tablet 12.5 mg PO DAILY Qty: 90 3RF pantoprazole 40 mg tablet,delayed release (DR/EC) 40 mg PO BID 90 Days Qty: 180 0RF zolpidem 10 mg tablet 10 mg PO BEDTIME Qty: 30 1RF potassium chloride 20 mEq tablet extended release 40 meq PO DAILY Qty: 60 5RF diltiazem HCl 240 mg capsule,extended release 24 hr 240 mg PO QAM Qty: 90 1RF montelukast 10 mg tablet 10 mg PO BEDTIME PRN (Reason: Allergy Symptoms) Qty: 90 0RF Rx Instructions: 340 B hydrocodone-acetaminophen 5-325 mg tablet 1 tab PO DAILY PRN (Reason: pain) 30 Days Qty: 30 0RF Rx Instructions: Must last 30 days alprazolam 0.5 mg tablet 0.5 mg PO BID PRN (Reason: Anxiety) Qty: 60 1RF albuterol sulfate 2.5 mg /3 mL (0.083 %) Solution For Nebulization 2.5 mg INHALATION Q4H PRN (Reason: Shortness Of Breath) albuterol sulfate 90 mcg/actuation Hfa Aerosol Inhaler 1 puff INHALATION QID PRN (Reason: Shortness Of Breath) Anoro Ellipta 62.5-25 mcg/actuation blister with device 1 inh INHALATION BID Qty: 60 5RF gabapentin 300 mg Capsule 300 mg PO BID sennosides-docusate sodium [Stool Softener-Laxative] 8.6-50 mg tablet 1 tab PO DAILY PRN (Reason: Constipation) furosemide [Lasix] 40 mg tablet 40 mg PO DAILY 30 Days Qty: 60 0RF Rx Instructions: 340 B promethazine-DM 6.25-15 mg/5 mL syrup 5 ml PO QID PRN (Reason: Cough) magnesium oxide 400 mg magnesium Tablet 400 mg PO DAILY guaifenesin 400 mg tablet 400 mg PO TID PRN (Reason: Congestion) cholecalciferol (vitamin D3) [Vitamin D3] 25 mcg (1,000 unit) Tablet 25 mcg PO DAILY diltiazem HCl 30 mg tablet 30 mg PO Q8H PRN (Reason: Blood Pressure) Qty: 60 0RF Rx Instructions: TAKE IF BP OVER 110 340 B ondansetron 4 mg tablet,disintegrating 4 mg PO Q6H PRN (Reason: nausea and vomiting) Qty: 14 0RF Discharge Orders: Discharge ED (Routine); Ordered 11/06/22 Ordered By: Ap Lynn Referrals: Ava Fernandez DO [Primary Care Provider] - Discharge Diet: Advance as tolerated and Clear Liquid Discharge Activity: Resume usual activity Patient Instructions: Abdominal Pain (ED) Activity Restrictions/Additional Instructions: Follow-up with medical provider as directed in the next 3-5 days for reevaluation. Clear liquid diet for the next 12 to 24 hours and slowly advance diet as tolerated. Take medications as prescribed. Return to the ER or your medical provider if condition worsens. Please read and understand discharge instructions. Thank you for choosing [facility] for your healthcare needs today. Please realize this is an emergency room and that we are providing you with a medical screening exam and this may not be complete and all inclusive of all the testing and or work up that you may need to determine your ailment or severity of your illness. It is very important that you follow up as instructed or that you return to the Emergency Department should you have concerns or if your condition changes or worsens in any way. Coding Level of Care Code ED Orthotics Prosthetics Technician for Emely Silva
[2022-11-06 18:33] LABS: Add Urine Microscopic? NO
[2022-11-06 18:37] LABS: Bilirubin Urine Neg (Negative); Blood Urine Neg (Negative); Charge for UA Resulting for Rev; Glucose Urine UA Norm (Normal); Ketones Urine Negative (Negative); Leukocyte Esterase Urine Negative (Negative); Nitrate Urine Negative (Negative); Protein Urine Neg (Negative); Specific Gravity, Urine 1.015 (1.005-1.030); Urine Appearance Clear (CLEAR); Urine Color Yellow (Yellow); Urobilinogen Urine Norm (Negative); pH Urine 6 (5-7)
[2022-11-06] MEDS: ondansetron 2 mg/ML SDV 2 mL 4 MG IVP (18:46)
[2022-11-06 18:47] VITALS: RESP 12; O2SAT 99
[2022-11-06] MEDS: HYDROmorphone 1 mg/mL INJ 1 mL IVP (18:47)
[2022-11-06] MEDS: iohexol 350 mg/mL 500 mL Btl (per mL) IV (19:09)
[2022-11-06 20:00] VITALS: PULSE 55; O2SAT 97
[2022-11-06] MEDS: HYDROcodone-acetaminophen 10-325 mg Tablet 1 TAB PO (20:14)
== END 2022-11-06 20:22 | disposition home or self-care (01) ==
PROVIDERS: Physician Assistant; Emergency Provider Physician Assistant; PCP Family Medicine
DX: R10.84 Generalized abdominal pain (principal); F17.210 Nicotine dependence, cigarettes, uncomplicated; I13.0 Hypertensive heart and chronic kidney disease with heart failure and stage 1 through stage 4 chronic kidney disease, or unspecified chronic kidney disease; E11.22 Type 2 diabetes mellitus with diabetic chronic kidney disease; N18.9 Chronic kidney disease, unspecified; I50.31 Acute diastolic (congestive) heart failure; J44.9 Chronic obstructive pulmonary disease, unspecified; Z85.3 Personal history of malignant neoplasm of breast
CPT/HCPCS: 36415; 71045; 74177; 80053; 81003; 83690; 85025; 85651; 86140; 96374; 96375; 99285; J1170; J2405; Q9967

== ENCOUNTER → 2022-11-16 14:14 | Outpatient (BNVA) | payer MEDICARE, BC, SELFPAY | PROVIDERS: PCP Family Medicine; Visit Provider Thoracic Surgery (Cardiothoracic Vascular Surgery) | DX: I48.91 Unspecified atrial fibrillation (principal); F17.200 Nicotine dependence, unspecified, uncomplicated | CPT/HCPCS: 99213 ==

== ENCOUNTER → 2023-01-01 12:47 | Outpatient (BNVA) | payer MEDICARE, BC, SELFPAY | PROVIDERS: PCP Family Medicine; Visit Provider Internal Medicine Cardiovascular Disease | DX: R07.9 Chest pain, unspecified (principal); I44.0 Atrioventricular block, first degree; I49.5 Sick sinus syndrome; I48.91 Unspecified atrial fibrillation; I50.30 Unspecified diastolic (congestive) heart failure; N18.9 Chronic kidney disease, unspecified; E11.9 Type 2 diabetes mellitus without complications; R10.9 Unspecified abdominal pain; E11.22 Type 2 diabetes mellitus with diabetic chronic kidney disease; F17.200 Nicotine dependence, unspecified, uncomplicated | CPT/HCPCS: 93005; 99214 ==

== ENCOUNTER 2023-05-09 13:48 | Emergency (ER) | payer MEDICARE, BC, SELFPAY ==
[2023-05-09 13:53] VITALS: PULSE 56; RESP 16; TEMP 36.9; O2SAT 98; BMI 24.2
[2023-05-09 14:14] LABS: Basophils % 0.5 %; Eosinophils # 0.1 10^3/uL (0.0-0.8); Eosinophils % 1.1 %; Hematocrit 37.7 % (36-47); Lymphocytes # 1.7 10^3/uL (0.8-4.8); Lymphocytes % 28.1 %; Mean Corpuscular HGB Conc 32.1 g/dL (30-55); Mean Corpuscular Hemoglobin 30.9 pg (27-33); Mean Corpuscular Volume 96.4 fl (85-98); Mean Platelet Volume 8.4 fL (7.4-10.4); Monocytes # 0.5 10^3/uL (0.2-0.9); Monocytes % 7.6 %; Neutrophils # 3.86 10^3/uL (1.8-7.7); Neutrophils % 62.4 %; Nucleated Red Blood Cells % 0 %; Platelet Count 376 10^3/cmm (157-399); Red Blood Count 3.91 10^6/uL (3.85-5.65); Red Cell Distribution Width 13.1 % (12.1-15.1); White Blood Count 6.19 10^3/uL (3.29-11.43)
[2023-05-09 14:31] LABS: Alanine Aminotransferase < 5 U/L (0-33); Albumin Level 3.8 g/dL (3.5-5.2); Alkaline Phosphatase 110 U/L (35-105); Anion Gap 12.4 (5-19); Aspartate Amino Transferase 10 U/L (0-32); Blood Urea Nitrogen 10 mg/dL (8-23); Calcium 9.3 mg/dL (8.5-10.5); Carbon Dioxide 30 mmol/L (22-29); Chloride 101 mmol/L (98-107); Globulin 2.8 g/dL (1.3-4.6); Glucose 127 mg/dL (65-115); Lipase 24 U/L (13-60); Osmolality Calculated 289 mOsm/kg (285-295); Potassium 4.4 mmol/L (3.5-5.1); Sodium 139 mmol/L (136-145); Total Bilirubin 0.2 mg/dL (0.15-1.2); Total Protein 6.6 g/dL (6.6-8.7)
--- NOTE | 2023-05-09 15:04 | XRR_ITS ---
PROCEDURE INFORMATION: Exam: XR Chest Exam date and time: 05/09/2023 3:07 PM Age: 72 years old Clinical indication: Dyspnea TECHNIQUE: Imaging protocol: Radiologic exam of the chest. Views: 1 view. COMPARISON: CR XR chest 1V portable [id number] 11/06/2022 6:05 PM FINDINGS: Lungs: Unremarkable. No consolidation. Pleural spaces: Unremarkable. No pleural effusion. No pneumothorax. Heart/Mediastinum: Stable borderline cardiomegaly. Bones/joints: Unremarkable. Soft tissues: There are right-sided chest wall clips. XR/XR chest 1V portable [id number] IMPRESSION: No acute findings.
--- NOTE | 2023-05-09 15:42 | ED_ITS ---
HPI - Abdominal Pain General: Chief Complaint: Shortness of Breath/Dyspnea Stated Complaint: NVD,abd pain Time Seen by Provider: 05/09/23 14:25 History of Present Illness: 72-year-old female presents emergency department with complaints of 3 episodes of nausea and vomiting over the previous 24 hours. She states she is also had intermittent abdominal pain and diarrhea for the previous 2 days. She states she has a history of COPD and is on chronic home oxygen and that her feelings of shortness of breath are no worse than they have been in the past. She denies chest pain dizziness or lightheaded feeling at present. She states she does feel overall generally weak and fatigued and just feels overall ill. She states she did have a history of gastrointestinal bleeding in the past, as well as atrial fibrillation that is rate controlled with metoprolol. Associated Symptoms: Reports nausea and vomiting Review of Systems General: Reports: 10 or more systems reviewed and unremarkable except in HPI and below GI: Reports: abdominal pain, nausea and vomiting PFS ED PFSH: Medical History Abdominal pain Abdominal pain Acute blood loss anemia Acute diastolic heart failure Acute kidney injury superimposed on CKD HERBER (acute kidney injury) Anemia Atrial fibrillation Atrial fibrillation Atrial fibrillation Atrial fibrillation with rapid ventricular response Atrial fibrillation with RVR Chronic anticoagulation Chronic kidney disease COPD (chronic obstructive pulmonary disease) Dehydration Diverticulitis Fatigue Generalized weakness GERD (gastroesophageal reflux disease) History of breast cancer History of syncope HTN (hypertension) with goal to be determined Hypokalemia Pneumonia Right heart failure Sinus node dysfunction T2DM (type 2 diabetes mellitus) Volume overload Surgical History History of knee replacement History of lumpectomy of right breast lymph node removal History of radical hysterectomy Hx of cholecystectomy Family History Mother , at age 62 Cancer Cervical Emphysema lung Father , at age 64 Black lung disease Social History Smoking and tobacco/nicotine status: current every day tobacco/nicotine user Alcohol intake: never Substance/Drug Use: never Household members: spouse Marital status: / Current occupational status: retired Physical Exam Narrative: EXAM NARRATIVE: Constitutional: the patient appears well nourished and with normal development. Vital signs reviewed as documented. HENMT: Normocephalic, atraumatic. Extermal ears with normal appearance without drainage. Nose without drainage, normal appearance. Mucus membranes moist. Neck is supple, No jugular venous distension, trachea is midline, no appreciable carotid bruits. No lymphadenopathy. No meningeal signs. Flexion, extension and lateral rotation is without pain. Eyes: Pupils are equal, round, reactive to light and accommodation. No scleral icterus. Extra-ocular movement are intact. Thorax is symmetrical and with equal rise and fall with respirations. Resp: Lungs are clear to auscultation. No wheezes, rales, crackles or ronchi at present. Cardio: Regular rate and rhythm. Positive S1, S2. No appreciable murmurs, rubs or gallops. GI: Abdominal exam reveals normal bowel sounds to all quadrants. No organomegaly. No obvious palpable masses noted. No hepatomegally appreciated. Soft, nontender to palpation. Extremity: Extremities are non-edematous and both femoral and pedal pulses are 2+ and equal bilaterally. Moves all extremities well, sensation in all extremities. Neuro: Alert and oriented x4, person, place, time and situation. Cranial nerves II through XII are grossly intact, there is no focal neurological deficits that I can appreciate at present. Motor strength in the upper and lower extremities are equal and bilateral 5/5. Psych: Cooperative, calm, normal thought process, appropriate judgment. Skin: No lesions, rashes. No gross abnormalities noted. Back: Symmetrical, no obvious deformity, No CVA tenderness Course Vital Signs: Vital signs: Vital Signs Temperature 98.5 F 05/09/23 13:53 Pulse Rate 56 L 05/09/23 13:53 Respiratory Rate 16 05/09/23 13:53 Pulse Oximetry 98 05/09/23 13:53 Oxygen Delivery Me thod Nasal Cannula 05/09/23 13:53 Oxygen Flow Rate 3 05/09/23 13:53 MDM - Abdominal Pain Medical Decision Making Physical exam completed and documented, CBC CMP and chest x-ray as well as influenza a and B and COVID screen ordered. Given the patient's nausea vomiting and diarrhea I suspect this is most likely secondary to viral gastroenteritis, versus colitis versus diverticulitis/diverticulosis. Medical Records I reviewed the patient's medical records. Lab Data I reviewed the patient's lab results. 05/09/23 14:06 05/09/23 14:06 Labs/Radiology: Radiology Impressions Chest X-Ray 05/09/23 15:04 IMPRESSION: No acute findings. Laboratory Results WBC 6.19 10^3/uL (3.29-11.43) 05/09/23 14:06 RBC 3.91 10^6/uL (3.85-5.65) 05/09/23 14:06 Hgb 12.10 g/dL (11.27-16.99) 05/09/23 14:06 Hct 37.7 % (36-47) 05/09/23 14:06 MCV 96.4 fl (85-98) 05/09/23 14:06 MCH 30.9 pg (27-33) 05/09/23 14:06 MCHC 32.1 g/dL (30-55) 05/09/23 14:06 RDW 13.1 % (12.1-15.1) 05/09/23 14:06 Plt Count 376 10^3/cmm (157-399) 05/09/23 14:06 MPV 8.4 fL (7.4-10.4) 05/09/23 14:06 Neut % (Auto) 62.4 % 05/09/23 14:06 Lymph % (Auto) 28.1 % 05/09/23 14:06 [place] % (Auto) 7.6 % 05/09/23 14:06 Eos % (Auto) 1.1 % 05/09/23 14:06 Baso % (Auto) 0.5 % 05/09/23 14:06 Neut # (Auto) 3.86 10^3/uL (1.8-7.7) 05/09/23 14:06 Lymph # (Auto) 1.7 10^3/uL (0.8-4.8) 05/09/23 14:06 [place] # (Auto) 0.5 10^3/uL (0.2-0.9) 05/09/23 14:06 Eos # (Auto) 0.1 10^3/uL (0.0-0.8) 05/09/23 14:06 Baso # (Auto) 0.0 10^3/uL (0.0-0.1) 05/09/23 14:06 Nucleated RBC % (auto) 0 % 05/09/23 14:06 Nucleated RBCs # 0.0 /100WBC 05/09/23 14:06 Sodium 139 mmol/L (136-145) 05/09/23 14:06 Potassium 4.4 mmol/L (3.5-5.1) 05/09/23 14:06 Chloride 101 mmol/L (98-107) 05/09/23 14:06 Carbon Dioxide 30 mmol/L (22-29) H 05/09/23 14:06 Anion Gap 12.4 (5-19) 05/09/23 14:06 BUN 10 mg/dL (8-23) 05/09/23 14:06 Creatinine 0.8 mg/dL (0.5-0.9) 05/09/23 14:06 GFR Calculation Not Reportable 05/09/23 14:06 Glucose 127 mg/dL (65-115) H 05/09/23 14:06 Calculated Osmolality 289 mOsm/kg (285-295) 05/09/23 14:06 Calcium 9.3 mg/dL (8.5-10.5) 05/09/23 14:06 Total Bilirubin 0.2 mg/dL (0.15-1.2) 05/09/23 14:06 AST 10 U/L (0-32) 05/09/23 14:06 ALT < 5 U/L (0-33) 05/09/23 14:06 Alkaline Phosphatase 110 U/L (35-105) H 05/09/23 14:06 Total Protein 6.6 g/dL (6.6-8.7) 05/09/23 14:06 Albumin 3.8 g/dL (3.5-5.2) 05/09/23 14:06 Globulin 2.8 g/dL (1.3-4.6) 05/09/23 14:06 Lipase 24 U/L (13-60) 05/09/23 14:06 Urine Color Yellow (Yellow) 05/09/23 15:47 Urine Appearance Clear (CLEAR) 05/09/23 15:47 Urine pH 6 (5-7) 05/09/23 15:47 Ur Specific [place] 1.015 (1.005-1.030) 05/09/23 15:47 Urine Protein Neg (Negative) 05/09/23 15:47 Urine Glucose (UA) Norm (Normal) 05/09/23 15:47 Urine Ketones Negative (Negative) 05/09/23 15:47 Urine Blood Neg (Negative) 05/09/23 15:47 Urine Nitrate Negative (Negative) 05/09/23 15:47 Urine Bilirubin Neg (Negative) 05/09/23 15:47 Urine Urobilinogen Norm mg/dL (Negative) 05/09/23 15:47 Ur Leukocyte Esterase Negative (Negative) 05/09/23 15:47 Influenza Type A Ag Negative (Negative) 05/09/23 15:13 Influenza Type B Ag Negative (Negative) 05/09/23 15:13 SARS-CoV-2 Ag (Rapid) negative (Negative) 05/09/23 15:13 All radiology interpretation(s) finalized by discharge Discharge Plan Discharge Patient Disposition: Home Clinical Impression: Viral gastroenteritis, Nausea & vomiting Condition: Stable Prescriptions: New ondansetron 4 mg tablet,disintegrating 4 mg PO Q8H 4 Days Qty: 12 0RF No Action (DME) oxygen-air delivery systems Device See Rx Instructions .Route Rx Instructions: As directed hydrocodone-acetaminophen 10-325 mg tablet 1 tab PO Q6H PRN sucralfate 1 gram tablet 1 g PO TID lactulose 10 gram/15 mL solution 10 g PO DAILY PRN (Reason: constipation) Qty: 237 0RF metoprolol tartrate 25 mg tablet 12.5 mg PO DAILY Qty: 90 3RF pantoprazole 40 mg tablet,delayed release (DR/EC) 40 mg PO BID 90 Days Qty: 180 0RF zolpidem 10 mg tablet 10 mg PO BEDTIME Qty: 30 1RF montelukast 10 mg tablet 10 mg PO BEDTIME PRN (Reason: Allergy Symptoms) Qty: 90 0RF Rx Instructions: 340 B alprazolam 0.5 mg tablet 0.5 mg PO BID PRN (Reason: Anxiety) Qty: 60 1RF diltiazem HCl 240 mg capsule,extended release 24 hr 240 mg PO QAM Qty: 90 1RF albuterol sulfate 2.5 mg /3 mL (0.083 %) Solution For Nebulization 2.5 mg INHALATION Q4H PRN (Reason: Shortness Of Breath) albuterol sulfate 90 mcg/actuation Hfa Aerosol Inhaler 1 puff INHALATION QID PRN (Reason: Shortness Of Breath) Anoro Ellipta 62.5-25 mcg/actuation blister with device 1 inh INHALATION BID Qty: 60 5RF gabapentin 300 mg Capsule 300 mg PO BID sennosides-docusate sodium [Stool Softener-Laxative] 8.6-50 mg tablet 1 tab PO DAILY PRN (Reason: Constipation) promethazine-DM 6.25-15 mg/5 mL syrup 5 ml PO QID PRN (Reason: Cough) guaifenesin 400 mg tablet 400 mg PO TID PRN (Reason: Congestion) cholecalciferol (vitamin D3) [Vitamin D3] 25 mcg (1,000 unit) Tablet 25 mcg PO DAILY diltiazem HCl 30 mg tablet 30 mg PO Q8H PRN (Reason: Blood Pressure) Qty: 60 0RF Rx Instructions: TAKE IF BP OVER 110 340 B ondansetron 4 mg tablet,disintegrating 4 mg PO Q6H PRN (Reason: nausea and vomiting) Qty: 14 0RF metoclopramide HCl 10 mg tablet 10 mg PO Q6H PRN (Reason: nausea and vomiting) Qty: 20 0RF Discharge Orders: Discharge ED (Routine); Ordered 05/09/23 Ordered By: Marshall Blunt Referrals: Sd Vargas [Primary Care Provider] - Discharge Diet: Advance as tolerated Discharge Activity: Resume usual activity Patient Instructions: Opioid Safety, Pain Management Activity Restrictions/Additional Instructions: Activity Restrictions/Additional Instructions: Thank you for choosing [facility] for your healthcare needs today. Please realize that you were seen in the Emergency Department and that we are providing you with an emergency medical screening exam and this may not be complete and all inclusive of all the testing and or medical work-up that you may need to determine your ailment or severity of your illness. It is very important that you follow-up as instructed with your Primary care provider or Specialist for additional evaluation and to discuss your medical treatment plan. You may return to the Emergency Department should you have concerns or if your condition changes or worsens in any way. Coding Level of Care Code ED Pastrycook for Emely Silva
[2023-05-09 15:53] LABS: Add Urine Microscopic? NO; Charge for UA Resulting for Rev
[2023-05-09 15:55] LABS: SARS Covid-2 Antigen negative (Negative)
[2023-05-09 15:57] LABS: Bilirubin Urine Neg (Negative); Blood Urine Neg (Negative); Glucose Urine UA Norm (Normal); Ketones Urine Negative (Negative); Leukocyte Esterase Urine Negative (Negative); Nitrate Urine Negative (Negative); Protein Urine Neg (Negative); Specific Gravity, Urine 1.015 (1.005-1.030); Urine Appearance Clear (CLEAR); Urine Color Yellow (Yellow); Urobilinogen Urine Norm (Negative); pH Urine 6 (5-7)
[2023-05-09 16:23] LABS: Influenza A by IFA Negative (Negative); Influenza B by IFA Negative (Negative)
[2023-05-09] MEDS: ondansetron 2 mg/ML SDV 2 mL 4 MG IM (17:12)
== END 2023-05-09 17:33 | disposition home or self-care (01) ==
PROVIDERS: Emergency Medicine; Emergency Provider Internal Medicine; PCP Family Medicine
DX: A08.4 Viral intestinal infection, unspecified (principal); Z11.52 Encounter for screening for COVID-19; Z72.0 Tobacco use; I13.0 Hypertensive heart and chronic kidney disease with heart failure and stage 1 through stage 4 chronic kidney disease, or unspecified chronic kidney disease; E11.22 Type 2 diabetes mellitus with diabetic chronic kidney disease; N18.9 Chronic kidney disease, unspecified; I50.810 Right heart failure, unspecified; J44.9 Chronic obstructive pulmonary disease, unspecified; Z85.3 Personal history of malignant neoplasm of breast
CPT/HCPCS: 36415; 71045; 80053; 81003; 83690; 85025; 87426; 87804; 96372; 99284; J2405

== ENCOUNTER 2023-05-15 16:43 | Observation (INO) | payer MEDICARE, BC, SELFPAY ==
[2023-05-15] VITALS (22 sets, daily range): BP systolic 101–133; BP diastolic 65–83; PULSE 59–132; RESP 16–22; TEMP 37.1; O2SAT 88–100; BMI 24.7
--- NOTE | 2023-05-15 17:12 | XRR_ITS ---
PROCEDURE INFORMATION: Exam: XR Chest Exam date and time: 05/15/2023 5:45 PM Age: 72 years old Clinical indication: Other: Afib; Prior surgery; Surgery date: 6+ months; Surgery type: Lumpectomy TECHNIQUE: Imaging protocol: Radiologic exam of the chest. Views: 1 view. COMPARISON: CR XR chest 1V portable [id number] 05/09/2023 3:07 PM FINDINGS: Lungs: No consolidation. Minimal biapical pleural-parenchymal thickening is stable. Pleural spaces: No pleural effusion or pneumothorax. Heart/Mediastinum: Unremarkable. No cardiomegaly. Vasculature: Aortic atherosclerotic calcification. Bones/joints: Unremarkable. Soft tissues: Right chest/axillary surgical clips. XR/XR chest 1V portable [id number] IMPRESSION: No acute findings.
--- NOTE | 2023-05-15 17:13 | ECG_ITS ---
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 Measurements Intervals [place] Rate: 137 P: 0 NC: 0 QRS: -36 QRSD: 112 T: 44 QT: 342 QTc: 517 Interpretive Statements ATRIAL FIBRILLATION WITH RAPID VENTRICULAR RESPONSE ST changes suggestive of ischemia Compared to ECG 01/01/2023 12:55:15 Atrial fibrillation is new Electronically Signed On 05-17-2023 16:52:00 LICENSED PESTICIDE APPLICATOR by Regina Swartz M.D. [email or web address] [id number]
--- NOTE | 2023-05-15 17:16 | ED_ITS ---
HPI - Arrhythmia/Palpitations 2 General: Chief Complaint: Arrhythmia/Palpitations Stated Complaint: Chest Pain Time Seen by Provider: 05/15/23 16:48 Source: patient Mode of arrival: ambulatory Limitations: no limitations History of Present Illness: 72-year-old female has a history of A-fi b she states that she has been having palpitations her heart rates been running high she has been taking her Cardizem she has had some slight abdominal pain as well she had nausea denies any vomiting she denies any fevers denies any chest pain. Associated symptoms: Deny nausea or vomiting Review of Systems 2 Const: Denies: fever(s), chills, body aches or change in appetite ENMT: Denies: throat pain or dental pain Card: Reports: palpitations; Denies: chest pain Resp: Denies: dyspnea GI: Reports: abdominal pain; Denies: nausea, vomiting or diarrhea : Denies: dysuria Musc: Denies: neck pain or back pain Skin/Breast: Denies: rash Neuro: Denies: headache(s) PFSH ED 2 PFSH: Medical History Abdominal pain Abdominal pain Acute blood loss anemia Acute diastolic heart failure Acute kidney injury superimposed on CKD HERBER (acute kidney injury) Anemia Atrial fibrillation Atrial fibrillation Atrial fibrillation Atrial fibrillation with rapid ventricular response Atrial fibrillation with RVR Chronic anticoagulation Chronic kidney disease COPD (chronic obstructive pulmonary disease) Dehydration Diverticulitis Fatigue Generalized weakness GERD (gastroesophageal reflux disease) History of breast cancer History of syncope HTN (hypertension) with goal to be determined Hypokalemia Pneumonia Right heart failure Sinus node dysfunction T2DM (type 2 diabetes mellitus) Volume overload Surgical History History of lumpectomy of right breast lymph node removal History of knee replacement History of radical hysterectomy Hx of cholecystectomy Family History Mother , at age 62 Cancer Cervical Emphysema lung Father , at age 64 Black lung disease Social History Smoking and tobacco/nicotine status: current every day tobacco/nicotine user Alcohol intake: never Substance/Drug Use: never Household members: spouse Marital status: / Current occupational status: retired Physical Exam 2 Const: COMMON NORMALS: no acute distress, patient oriented x3 and healthy appearing HENMT: COMMON NORMALS: normocephalic and atraumatic HEAD & SCALP: n ormocephalic and atraumatic Eye: COMMON NORMALS: conjunctivae normal CONJUNCTIVA: Yes conjunctivae normal Neck/C-Spine: COMMON NORMALS: full ROM and supple Chest: COMMONS NORMALS: normal inspection of the chest and normal palpation of entire chest wall Resp: COMMON NORMALS: normal respiratory effort, No retractions, No use of accessory muscles and clear to auscultation bilaterally AUSCULTATION: clear to auscultation bilaterally Cardio: COMMON NORMALS: No murmurs present (Cardio) RATE: tachycardic R HYTHM: abnormal rhythm irregularly irregular Extremity: COMMON NORMALS: normal to inspection and full ROM Neuro: COMMON NORMALS: patient oriented x3, moves all extremities and no focal motor deficits Psych: COMMON NORMALS: mental status grossly normal, Normal thought process present and cooperative THOUGHT PROCESS: Normal thought process present Skin: COMMON NORMALS: no rashes or lesions noted and no wounds GENERAL SKIN EXAM: no rashes or lesions noted Course 2 Vital Signs: Vital signs: Vital Signs Temperature 98.8 F 05/15/23 16:45 Pulse Rate 107 H 05/15/23 19:14 Respiratory Rate 18 05/15/23 19:14 Blood Pressure 102/79 05/15/23 19:14 Pulse Oximetry 99 05/15/23 19:14 Oxygen Delivery Me thod Nasal Cannula 05/15/23 18:35 Oxygen Flow Rate 3 05/15/23 18:35 MDM - Arrhythmia/Palpitations Medical Decision Making Patient presents here with A-fib with RVR patient was given a Cardizem bolus had to start a Cardizem drip she continued to be in the 120s I spoke to the hospitalist will admit at this time. Medical Records I reviewed the patient's medical records. Lab Data I reviewed the patient's lab results. 05/15/23 17:43 05/15/23 17:43 Radiology Impressions Chest X-Ray 05/15/23 17:12 IMPRESSION: No acute findings. Laboratory Results WBC 11.47 10^3/uL (3.29-11.43) H 05/15/23 17:43 RBC 4.56 10^6/uL (3.85-5.65) 05/15/23 17:43 Hgb 14.10 g/dL (11.27-16.99) 05/15/23 17:43 Hct 43.5 % (36-47) 05/15/23 17:43 MCV 95.4 fl (85-98) 05/15/23 17:43 MCH 30.9 pg (27-33) 05/15/23 17:43 MCHC 32.4 g/dL (30-55) 05/15/23 17:43 RDW 12.9 % (12.1-15.1) 05/15/23 17:43 Plt Count 496 10^3/cmm (157-399) H 05/15/23 17:43 MPV 9.1 fL (7.4-10.4) 05/15/23 17:43 Neut % (Auto) 70.7 % 05/15/23 17:43 Lymph % (Auto) 22.1 % 05/15/23 17:43 [place] % (Auto) 6.0 % 05/15/23 17:43 Eos % (Auto) 0.6 % 05/15/23 17:43 Baso % (Auto) 0.3 % 05/15/23 17:43 Neut # (Auto) 8.09 10^3/uL (1.8-7.7) H 05/15/23 17:43 Lymph # (Auto) 2.5 10^3/uL (0.8-4.8) 05/15/23 17:43 [place] # (Auto) 0.7 10^3/uL (0.2-0.9) 05/15/23 17:43 Eos # (Auto) 0.1 10^3/uL (0.0-0.8) 05/15/23 17:43 Baso # (Auto) 0.0 10^3/uL (0.0-0.1) 05/15/23 17:43 Nucleated RBC % (auto) 0 % 05/15/23 17:43 Nucleated RBCs # 0.0 /100WBC 05/15/23 17:43 Sodium 140 mmol/L (136-145) 05/15/23 17:43 Potassium 4.3 mmol/L (3.5-5.1) 05/15/23 17:43 Chloride 101 mmol/L (98-107) 05/15/23 17:43 Carbon Dioxide 28 mmol/L (22-29) 05/15/23 17:43 Anion Gap 15.3 (5-19) 05/15/23 17:43 BUN 10 mg/dL (8-23) 05/15/23 17:43 Creatinine 1.0 mg/dL (0.5-0.9) H 05/15/23 17:43 GFR Calculation Not Reportable 05/15/23 17:43 Glucose 117 mg/dL (65-115) H 05/15/23 17:43 Calculated Osmolality 290 mOsm/kg (285-295) 05/15/23 17:43 Calcium 9.6 mg/dL (8.5-10.5) 05/15/23 17:43 Total Bilirubin 0.4 mg/dL (0.15-1.2) 05/15/23 17:43 AST 11 U/L (0-32) 05/15/23 17:43 ALT < 5 U/L (0-33) 05/15/23 17:43 Alkaline Phosphatase 113 U/L (35-105) H 05/15/23 17:43 Total Protein 6.7 g/dL (6.6-8.7) 05/15/23 17:43 Albumin 4.0 g/dL (3.5-5.2) 05/15/23 17:43 Globulin 2.7 g/dL (1.3-4.6) 05/15/23 17:43 Lipase 22 U/L (13-60) 05/15/23 17:43 No radiology studies performed this visit EKG Data EKG 1: I personally reviewed and interpreted this EKG as follows: EKG interpretation date: 05/15/23 EKG interpretation time: 17:20 Interpretation: afib with rvr hr [address] or t wave abnormalities qrs 112 qtc 422 Other EKG comments: Chest X-Ray 05/15/23 17:12 IMPRESSION: No acute findings. Critical Care Time 2 Critical Care Time: Critical Care Time: Yes Total Critical Care Time: 40 Attestation: The high probability of a clinically significant, sudden or life threatening deterioration of the patient's cv system(s) required my full and direct attention, intervention and personal management. The critical care time is as shown. This time is in addition to time spent performing any reported procedures but includes the following: [x] Data and vital sign review and interpretation [x] Patient assessment, examination and intervention [x] Documentation [x] Medication orders and management Discharge Plan Discharge Patient Disposition: Admitted As Inpatient Admit Provider: Shayy Chavez Clinical Impression: Atrial fibrillation with RVR Condition: Stable Coding Level of Care Code ED Patient Service Rep for Emely Silva
[2023-05-15] MEDS: ondansetron 2 mg/ML SDV 2 mL 4 MG IVP ×2 (17:42→21:08)
[2023-05-15] MEDS: sodium chloride 0.9% 1,000 ML 999 ML IV (17:42)
[2023-05-15] MEDS: dilTIAZem 5 mg/mL SDV 5 mL 10 MG IVP (17:42)
[2023-05-15 19:00] LABS: Basophils % 0.3 %; Eosinophils # 0.1 10^3/uL (0.0-0.8); Eosinophils % 0.6 %; Hematocrit 43.5 % (36-47); Lymphocytes # 2.5 10^3/uL (0.8-4.8); Lymphocytes % 22.1 %; Mean Corpuscular HGB Conc 32.4 g/dL (30-55); Mean Corpuscular Hemoglobin 30.9 pg (27-33); Mean Corpuscular Volume 95.4 fl (85-98); Mean Platelet Volume 9.1 fL (7.4-10.4); Monocytes # 0.7 10^3/uL (0.2-0.9); Neutrophils # 8.09 10^3/uL (1.8-7.7); Neutrophils % 70.7 %; Nucleated Red Blood Cells % 0 %; Platelet Count 496 10^3/cmm (157-399); Red Blood Count 4.56 10^6/uL (3.85-5.65); Red Cell Distribution Width 12.9 % (12.1-15.1); White Blood Count 11.47 10^3/uL (3.29-11.43)
[2023-05-15 19:25] LABS: Alanine Aminotransferase < 5 U/L (0-33); Alkaline Phosphatase 113 U/L (35-105); Anion Gap 15.3 (5-19); Aspartate Amino Transferase 11 U/L (0-32); Blood Urea Nitrogen 10 mg/dL (8-23); Calcium 9.6 mg/dL (8.5-10.5); Carbon Dioxide 28 mmol/L (22-29); Chloride 101 mmol/L (98-107); Globulin 2.7 g/dL (1.3-4.6); Glucose 117 mg/dL (65-115); Lipase 22 U/L (13-60); Osmolality Calculated 290 mOsm/kg (285-295); Potassium 4.3 mmol/L (3.5-5.1); Sodium 140 mmol/L (136-145); Total Bilirubin 0.4 mg/dL (0.15-1.2); Total Protein 6.7 g/dL (6.6-8.7)
--- NOTE | 2023-05-15 19:47 | PM.HP ---
Providers/Chief Complaint Admitting Physician: Shayy Chavez MD Primary Care Provider: Sd Vargas Chief Complaint: Chest Pain History of Present Illness Rebeca Álvarez is a 72 year old female with history of sick sinus syndrome, was referred to review her vascular center at [facility] she has an appointment this with a bioprocess development engineer, takes Cardizem and metoprolol does not take blood thinner because of GI bleed (3 units PRBC in June this year for diverticular bleed )history presented with chief complaint of palpitation. Patient stated that she woke up with chest discomfort with palpitations she knew she was in A-fib RVR that prompted her visit to the ER. She came in the ER around 3 PM. She was given Cardizem push and then started on Cardizem GGTat the time of my evaluation she is on Cardizem 7.5 mg She has history of sinus pauses, sick sinus syndrome, currently hemodynamically stable chest pain-free Son at the bedside Patient is full code Review of Systems Const: Denies: fever(s) Eyes: Denies: change in vision ENMT: Denies: throat pain Card: Reports: palpitations; Denies: chest pain Resp: Reports: dyspnea GI: Denies: abdominal pain : Denies: flank pain Musc: Denies: neck pain Skin/Breast: Denies: rash Neuro: Denies: headache(s) Psych: Reports: anxiety Medications/Allergies Home Medications Medication Instructions Recorded Confirmed Last Taken Type albuterol sulfate 2.5 mg/3 mL 2.5 mg inhalation Q4H PRN 01/29/22 11/16/22 Unknown History (0.083 %) solution for nebulization Shortness Of Breath albuterol sulfate 90 mcg/actuation 1 puff inhalation QID PRN 01/29/22 11/16/22 Unknown History aerosol inhaler Shortness Of Breath cholecalciferol (vitamin D3) 25 25 mcg PO DAILY 03/20/22 11/16/22 1 Week Ago History mcg (1,000 unit) tablet (Vitamin ~07/21/22 D3) guaifenesin 400 mg tablet 400 mg PO TID PRN Congestion 03/20/22 11/16/22 Unknown History diltiazem HCl 30 mg tablet 30 mg PO Q8H PRN Blood Pressure 05/04/22 11/16/22 07/27/22 Rx #60 tabs ondansetron 4 mg disintegrating 4 mg PO Q6H PRN nausea and 05/25/22 11/16/22 Unknown Rx tablet vomiting #14 tabs gabapentin 300 mg capsule 300 mg PO BID 06/18/22 11/16/22 06/17/22 History sennosides 8.6 mg-docusate sodium 1 tab PO DAILY PRN Constipation 06/18/22 11/16/22 06/17/22 History 50 mg tablet (Stool Softener-Laxative) umeclidinium 62.5 mcg-vilanterol 1 inh inhalation BID #60 ea 06/27/22 11/16/22 Unknown Rx 25 mcg/actuation powdr for inhalation (Anoro Ellipta) promethazine-DM 6.25 mg-15 mg/5 mL 5 ml PO QID PRN Cough 07/28/22 11/16/22 07/28/22 History oral syrup lactulose 10 gram/15 mL oral 10 g (15 mL) PO DAILY PRN 09/18/22 11/16/22 Unknown Rx solution constipation #237 mL metoprolol tartrate 25 mg tablet 12.5 mg (1/2 x 25 mg) PO DAILY #90 09/18/22 11/16/22 Unknown Rx tabs pantoprazole 40 mg tablet,delayed 40 mg PO BID 3 months #180 tabs 09/18/22 11/16/22 Unknown Rx release zolpidem 10 mg tablet 10 mg PO BEDTIME #30 tabs 09/18/22 11/16/22 Unknown Rx montelukast 10 mg tablet 10 mg PO BEDTIME PRN Allergy 10/17/22 11/16/22 Unknown Rx Symptoms #90 tabs alprazolam 0.5 mg tablet 0.5 mg PO BID PRN Anxiety #60 tabs 10/19/22 11/16/22 Unknown Rx metoclopramide HCl 10 mg tablet 10 mg PO Q6H PRN nausea and 11/06/22 11/16/22 Unknown Rx vomiting #20 tabs oxygen-air delivery systems 11/16/22 11/16/22 Unknown History hydrocodone 10 mg-acetaminophen 1 tab PO Q6H PRN 01/01/23 Unknown History 325 mg tablet sucralfate 1 gram tablet 1 g PO TID 01/01/23 Unknown History diltiazem HCl 240 mg capsule,24 240 mg PO QAM #90 caps 01/18/23 Unknown Rx hr,extended release Allergies Allergy/AdvReac Type Severity Reaction Status Date / Time morphine Allergy ALGY-Hives Verified 05/15/23 16:45 Penicillins Allergy ALGY-Hives Verified 05/15/23 16:45 PFSH Acute PFSH: Medical History Acute blood loss anemia Atrial fibrillation Anemia Diverticulitis GERD (gastroesophageal reflux disease) History of breast cancer Pneumonia Sinus node dysfunction Atrial fibrillation Abdominal pain Chronic kidney disease Atrial fibrillation with RVR Acute kidney injury superimposed on CKD Generalized weakness Fatigue Atrial fibrillation Acute diastolic heart failure Chronic anticoagulation Right heart failure T2DM (type 2 diabetes mellitus) History of syncope Volume overload HERBER (acute kidney injury) Hypokalemia Dehydration Atrial fibrillation with rapid ventricular response HTN (hypertension) with goal to be determined COPD (chronic obstructive pulmonary disease) Abdominal pain Surgical History History of lumpectomy of right breast lymph node removal History of knee replacement History of radical hysterectomy Hx of cholecystectomy Family History Mother , at age 62 Cancer Cervical Emphysema lung Father , at age 64 Black lung disease Social History Smoking and tobacco/nicotine status: current every day tobacco/nicotine user Alcohol intake: never Substance/Drug Use: never Household members: spouse Marital status: / Current occupational status: retired Vitals/I&O/Wt Last Vital Signs Temp 98.8 F 05/15/23 16:45 Pulse 107 H 05/15/23 19:14 Resp 18 05/15/23 19:14 BP 102/79 05/15/23 19:14 Pulse Ox 99 05/15/23 19:14 O2 Del Method Nasal Cannula 05/15/23 18:35 O2 Flow Rate 3 05/15/23 18:35 05/15/23 05/15/23 05/15/23 06:59 14:59 22:59 Intake Total 1000 / 1000 Balance 1000 / 1000 Weight last 48 hrs Weight 69.4 kg Physical Exam Narrative: Pleasant cooperative Euvolemic A-fib RVR Sinus pauses appreciated Awake and alert GCS 15 Currently on 3 L Abdomen soft Son at the bedside Chest pain-free Data 05/15/23 17:43 05/15/23 17:43 A&P Assessment and plan (1) Atrial fibrillation with RVR: (2) Sick sinus syndrome: (3) T2DM (type 2 diabetes mellitus): Qualifiers: Diabetes mellitus fpc insulin use: without terminal manager use Diabetes mellitus complication status: without complication Qualified Code(s): E11.9 - Type 2 diabetes mellitus without complications (4) GERD (gastroesophageal reflux disease): (5) GI bleed: (6) COPD (chronic obstructive pulmonary disease): Qualifiers: COPD type: emphysema Emphysema type: panlobular Qualified Code(s): J43.1 - Panlobular emphysema Plan Sick sinus syndrome A-fib RVR Cardizem drip at 7.5 mg Continue Cardizem 240 mg extended release I do appreciate 1 second sinus pauses hold off metoprolol Keep magnesium of 2 potassium of 4 Patient has an appointment with bioprocess development engineer this at [facility] for pacemaker placement in consideration for ablation. Full code Cardiac diet/consistent carb Start sliding scale Chronic hypoxia requires 3 L at baseline Not a candidate for anticoagulation because of history of GI bleed hemoglobin has remained stable since June when she required 2 units PRBC for diverticular bleed Attestations Medical Necessity Statement*: Anticipating discharge within 48 hours Diagnoses Atrial fibrillation with RVR I48.91 Sick sinus syndrome I49.5 Type 2 diabetes mellitus without complication, without long-term current use of insulin E11.9 Diabetes mellitus fpc insulin use: without fpc use Diabetes mellitus complication status: without complication GERD (gastroesophageal reflux disease) K21.9 GI bleed K92.2 Panlobular emphysema J43.1 COPD type: emphysema Emphysema type: panlobular
[2023-05-15] MEDS: dilTIAZem 100 MG in sodium chloride 0.9% (add-van) 100 ML IV (19:57)
[2023-05-15] MEDS: enoxaparin 40 mg/0.4 mL Syringe SUBCUT (22:06)
[2023-05-15] MEDS: HYDROcodone-acetaminophen 10-325 mg Tablet 1 TAB PO (22:06)
[2023-05-15] MEDS: dilTIAZem 60 mg Tablet 90 MG PO (22:06)
[2023-05-16] VITALS (59 sets, daily range): BP systolic 88–146; BP diastolic 50–76; PULSE 63–126; RESP 11–34; TEMP 36.6–37.3; O2SAT 94–99
[2023-05-16] MEDS: dilTIAZem 60 mg Tablet 90 MG PO ×4 (04:18→20:36)
[2023-05-16 05:03] LABS: Anion Gap 13.1 (5-19); Blood Urea Nitrogen 9 mg/dL (8-23); Calcium 9.2 mg/dL (8.5-10.5); Carbon Dioxide 30 mmol/L (22-29); Chloride 101 mmol/L (98-107); Glucose 95 mg/dL (65-115); Osmolality Calculated 288 mOsm/kg (285-295); Potassium 4.1 mmol/L (3.5-5.1); Sodium 140 mmol/L (136-145)
[2023-05-16] MEDS: HYDROcodone-acetaminophen 10-325 mg Tablet 1 TAB PO ×3 (07:24→22:14)
--- NOTE | 2023-05-16 07:28 | PC.NURSE ---
patient is requesting something for anxiety- takes alprazolam at home. As soon as the day shift hospitalist is assigned I will ask for some.
[2023-05-16] MEDS: metoprolol tartrate 25 mg Tablet 12.5 MG PO ×2 (08:08→20:38)
--- NOTE | 2023-05-16 10:11 | PC.CHAP ---
Pastoral Care Encounter/Spiritual Assessment Type of Contact [] Declined braid maker visit [] Patient/Family/Request visit [] Outpatient visit [] Follow-up visit [] Physician referral [] Code/Alert [x] Routine visit [] Staff referral [] Actively dying [] Patient sleeping [] Family support [] [] Out of room [] Palliative care [] [] Receiving care in room [] Pre-surgical visit [] Trauma [] Long length of stay [] ICU visit [] Other: Relational/Emotional Strength [] Patient feels connected with others/family/visitors/staff [] Distress [x] Loneliness/isolation [] Abandonment Spirituality of Patient [] Person of Karen [] Attends Holiness of their Karen [] Believes in Prayer [] Reads Bible or Orthodoxy materials [] There are Spiritual issues to be addressed Element Winding Machine Tender Interventions [x] Prayer [x] Active listening [] Non-anxious presence [x] Spiritual/emotional support [] Crisis/trauma care [] Spiritual counseling [] Bereavement support [] Provided bereavement packet [] Provided Bible/devotional materials [] Provided toy/stuffed animal, coloring book to patient or family member [] Provided Communion [] Anointing/[place] [] Salvation [] Completed spiritual assessment [] Other: Impact on Illness or Injury [] Angry [] Fearful [] Anxious [] Often cries [] Exhaustion [] Unable to work [] Unable to attend catholic [] Unable to walk/stand [] Unable to read [] Unable to drive [] Unable to eat/drink [] Unable to sleep [] Unable to be with family [] Patient intubated [] Other: Summary Time spent with patient 20
--- NOTE | 2023-05-16 10:12 | PC.CHAP ---
Pastoral Care Encounter/Spiritual Assessment Type of Contact [] Declined can cutter visit [] Patient/Family/Request visit [] Outpatient visit [] Follow-up visit [] Physician referral [] Code/Alert [x] Routine visit [] Staff referral [] Actively dying [] Patient sleeping [] Family support [] [] Out of room [] Palliative care [] [] Receiving care in room [] Pre-surgical visit [] Trauma [] Long length of stay [] ICU visit [] Other: Relational/Emotional Strength [] Patient feels connected with others/family/visitors/staff [x] Distress [x] Loneliness/isolation [] Abandonment Spirituality of Patient [] Person of Karen [] Attends Yazdanism of their Karen [] Believes in Prayer [] Reads Bible or Gnosticism materials [] There are Spiritual issues to be addressed Financial Planner Interventions [x] Prayer [x] Active listening [] Non-anxious presence [] Spiritual/emotional support [] Crisis/trauma care [] Spiritual counseling [] Bereavement support [] Provided bereavement packet [] Provided Bible/devotional materials [] Provided toy/stuffed animal, coloring book to patient or family member [] Provided Communion [] Anointing/[place] [] Salvation [] Completed spiritual assessment [] Other: Impact on Illness or Injury [] Angry [] Fearful [] Anxious [] Often cries [] Exhaustion [] Unable to work [] Unable to attend mandaeism [] Unable to walk/stand [] Unable to read [] Unable to drive [] Unable to eat/drink [] Unable to sleep [] Unable to be with family [] Patient intubated [] Other: Summary Ms Jose asks for prayeer and guidance with a family situation Time spent with patient 20
[2023-05-16] MEDS: ALPRAZolam 0.5 mg Tablet PO ×2 (11:10→22:14)
[2023-05-16 11:53] LABS: Glucose Point of Care 154 mg/dL (70-110)
--- NOTE | 2023-05-16 12:06 | USCV_ITS ---
Rebeca Álvarez Age: 72 Gender: F : 1950 Exam Date: 05/16/2023 13:09 Ordering Phys: Moses Miranda MD Technologist: Edi Garrett [place] [facility] [place]: [place] pain BP: 134 / 73 HR: 120 Rhythm: Sinus Technical Quality: Adequate MEASUREMENTS (Male / Female) Normal Values 2D ECHO LV Diastolic Diameter PLAX 4.8 cm 4.2 - 5.9 / 3.9 - 5.3 cm LV Systolic Diameter PLAX 2.9 cm IVS Diastolic Thickness 1.1 cm 0.6 - 1.0 / 0.6 - 0.9 cm IVS Systolic Thickness 1.6 cm LVPW Diastolic Thickness 1.5 cm 0.6 - 1.0 / 0.6 - 0.9 cm LVPW Systolic Thickness 1.4 cm LV Ejection Fraction 2D Teich 69.3 % LV Ejection Fraction MOD 2C 67.3 % LV Ejection Fraction 2C AL 67.2 % LA Diameter 4.1 cm IVC Diameter 1.3 cm M-MODE Aortic Annulus Diameter 3.5 cm LA Ao Ratio MM 1.2 MV E Point Septal Separation 1.0 cm DOPPLER AV Peak Velocity 95.0 cm/s LVOT Peak Velocity 91.0 cm/s MV Area PHT 5.0 cm squared Mitral E to A Ratio 1.5 MV E' Velocity 53.5 cm/s Mitral E to MV E' Ratio 9.5 Mitral E to LV E' Lateral Ratio 9.2 Mitral E to LV E' Septal Ratio 9.8 TR Peak Velocity 167.0 cm/s TR Peak Gradient 11.2 mmHg TV Peak E Velocity 55.0 cm/s Right Atrial Pressure 3.0 mmHg Pulmonary Artery Systolic Pressu 14.2 mmHg RV Acceleration Time 0.2 s FINDINGS Left Ventricle Normal left ventricular size, systolic function and wall thickness, with no regional wall motion abnormalities. Left ventricular ejection fraction is estimated at 65 %. Right Ventricle Normal right ventricular size and systolic function. Right Atrium Normal right atrial size. Left Atrium Normal left atrial size. Mitral Valve Mildly thickened mitral valve. Trace mitral valve regurgitation. Aortic Valve Thickened aortic valve. No aortic valve stenosis. Trace aortic valve regurgitation. Tricuspid Valve Tricuspid valve not well visualized. Trace tricuspid valve regurgitation. Pulmonic Valve Pulmonic valve not well visualized. Mild pulmonary valve regurgitation. Pericardium No pericardial effusion. Aorta Normal size aortic root and proximal ascending aorta. IVC Normal IVC dimension with >50% respiratory change of the inferior vena cava. CONCLUSIONS Tachycardia during the study. Normal left ventricle systolic functions. No LVH. Estimated LVEF is normal at 65%. No significant valvular abnormality noted. Normal chamber sizes. Normal right heart and pulmonary pressures. Regina Swartz MD (Electronically Signed) Final Date: 16 May 2023 16:39 S
--- NOTE | 2023-05-16 12:59 | P.DS_ITS ---
Discharge Providers Date of Admission: 05/15/23 19:42 Date of Discharge: May 16, 2023 Attending Provider at Admission: Shayy Chavez MD Attending Provider at Discharge: Moses Miranda MD Primary Care Provider: Sd Vargas Diagnoses at Discharge Discharge Diagnosis (1) Atrial fibrillation with RVR: Status: Acute (2) Sick sinus syndrome: Status: Acute (3) T2DM (type 2 diabetes mellitus): Status: Acute Qualifiers: Diabetes mellitus assisted insulin use: without assisted use Diabetes mellitus complication status: without complication Qualified Code(s): E11.9 - Type 2 diabetes mellitus without complications (4) GERD (gastroesophageal reflux disease): Status: Acute (5) GI bleed: Status: Acute (6) COPD (chronic obstructive pulmonary disease): Status: Acute Qualifiers: COPD type: emphysema Emphysema type: panlobular Qualified Code(s): J43.1 - Panlobular emphysema Reason for Visit Reason for Visit: Chest Pain Hospital Course Hospital Course Rebeca Álvarez is a 72 year old female with history of sick sinus syndrome, was referred to review her vascular center at [facility] she has an appointment this with a funeral home assistant, takes Cardizem and metoprolol does not take blood thinner because of GI bleed (3 units PRBC in June this year for diverticular bleed )history presented with chief complaint of palpitation. Patient stated that she woke up with chest discomfort with palpitations she knew she was in A-fib RVR that prompted her visit to the ER. She came in the ER around 3 PM. She was given Cardizem push and then started on Cardizem GGTat the time of my evaluation she is on Cardizem 7.5 mg She has history of sinus pauses, sick sinus syndrome, currently hemodynamically stable chest pain-free Son at the bedside Patient is full code Patient was admitted to [facility] for A-fib with RVR, managed with Cardizem drip, she was weaned off Cardizem drip, transition to p.o. Cardizem, 90 every 6 hours, Metroprolol 25 mg twice daily, she was clinically monitored, ambulating without significant symptomatology, discharged on Cardizem 360 mg every 24 hours, with metoprolol 12.5 mg twice daily. Patient was advised if she has any recurrent chest pain to go to the emergency room I attempted to transfer patient to [facility], as patient preferred to be transferred to [facility], as she is going to be evaluated by cardiology and electrophysiology, for possible pacemaker placement, possible ablation for her recurrent A-fib. However beds at [facility] not available, so I gave the option to the patient about spending the night at [facility] and trying for transfer tomorrow, or discharge home and she can follow-up with cardiology at [facility] tomorrow. Patient preferred to be discharged home, to follow- up with cardiology tomorrow morning. Physical Exam Const: COMMON NORMALS: no acute distress and patient oriented x3 Resp: COMMON NORMALS: normal respiratory effort, No retractions, No use of accessory muscles and clear to auscultation bilaterally AUSCULTATION: clear to auscultation bilaterally Cardio: COMMON NORMALS: regular rate, regular rhythm, S1 normal heart sound present and S2 normal heart sound present RATE: regular rate RHYTHM: regular rhythm HEART SOUNDS: S1 normal heart sound present and S2 normal heart sound present GI: COMMON NORMALS: Normal to inspection, nondistended, normoactive bowel so unds present and non-tender Extremity: COMMON NORMALS: no pedal edema Neuro: COMMON NORMALS: patient oriented x3 Psych: COMMON NORMALS: mental status grossly normal Discharge Data Studies Completed and Pending Completed Studies During Hospitalization Category Date Time Status XR chest 1V portable [id number] Stat Exams 05/15/23 17:12 Completed Pending at discharge Category Date Time Status Procalcitonin Routine Lab 05/16/23 12:10 Ordered Respiratory Panel 2 Routine Lab 05/16/23 12:10 Uncollected Troponin(5th) 2 Hour. Timed Lab 05/16/23 14:11 Ordered Troponin(5th) 6 hour. Timed Lab 05/16/23 18:11 Ordered Troponin(5th) Baseline Stat Lab 05/16/23 12:11 Ordered CV. echo complete* [id number] Routine Ultrasound 05/16/23 12:06 Ordered Radiology Impressions Chest X-Ray 05/15/23 17:12 IMPRESSION: No acute findings. Laboratory Results WBC 11.47 10^3/uL (3.29-11.43) H 05/15/23 17:43 RBC 4.56 10^6/uL (3.85-5.65) 05/15/23 17:43 Hgb 14.10 g/dL (11.27-16.99) 05/15/23 17:43 Hct 43.5 % (36-47) 05/15/23 17:43 MCV 95.4 fl (85-98) 05/15/23 17:43 MCH 30.9 pg (27-33) 05/15/23 17:43 MCHC 32.4 g/dL (30-55) 05/15/23 17:43 RDW 12.9 % (12.1-15.1) 05/15/23 17:43 Plt Count 496 10^3/cmm (157-399) H 05/15/23 17:43 MPV 9.1 fL (7.4-10.4) 05/15/23 17:43 Neut % (Auto) 70.7 % 05/15/23 17:43 Lymph % (Auto) 22.1 % 05/15/23 17:43 [place] % (Auto) 6.0 % 05/15/23 17:43 Eos % (Auto) 0.6 % 05/15/23 17:43 Baso % (Auto) 0.3 % 05/15/23 17:43 Neut # (Auto) 8.09 10^3/uL (1.8-7.7) H 05/15/23 17:43 Lymph # (Auto) 2.5 10^3/uL (0.8-4.8) 05/15/23 17:43 [place] # (Auto) 0.7 10^3/uL (0.2-0.9) 05/15/23 17:43 Eos # (Auto) 0.1 10^3/uL (0.0-0.8) 05/15/23 17:43 Baso # (Auto) 0.0 10^3/uL (0.0-0.1) 05/15/23 17:43 Nucleated RBC % (auto) 0 % 05/15/23 17:43 Nucleated RBCs # 0.0 /100WBC 05/15/23 17:43 Sodium 140 mmol/L (136-145) 05/16/23 04:20 Potassium 4.1 mmol/L (3.5-5.1) 05/16/23 04:20 Chloride 101 mmol/L (98-107) 05/16/23 04:20 Carbon Dioxide 30 mmol/L (22-29) H 05/16/23 04:20 Anion Gap 13.1 (5-19) 05/16/23 04:20 BUN 9 mg/dL (8-23) 05/16/23 04:20 Creatinine 1.0 mg/dL (0.5-0.9) H 05/16/23 04:20 GFR Calculation Not Reportable 05/16/23 04:20 Glucose 95 mg/dL (65-115) 05/16/23 04:20 POC Glucose 154 mg/dL (70-110) H 05/16/23 11:35 Calculated Osmolality 288 mOsm/kg (285-295) 05/16/23 04:20 Calcium 9.2 mg/dL (8.5-10.5) 05/16/23 04:20 Magnesium 2.0 mg/dL (1.7-2.3) 05/16/23 04:20 Total Bilirubin 0.4 mg/dL (0.15-1.2) 05/15/23 17:43 AST 11 U/L (0-32) 05/15/23 17:43 ALT < 5 U/L (0-33) 05/15/23 17:43 Alkaline Phosphatase 113 U/L (35-105) H 05/15/23 17:43 C-Reactive Protein 3.0 mg/L (0.0-4.9) 05/16/23 04:20 Total Protein 6.7 g/dL (6.6-8.7) 05/15/23 17:43 Albumin 4.0 g/dL (3.5-5.2) 05/15/23 17:43 Globulin 2.7 g/dL (1.3-4.6) 05/15/23 17:43 Lipase 22 U/L (13-60) 05/15/23 17:43 Vitals Last Vital Signs Temp 98.9 F 05/16/23 11:08 Pulse 69 05/16/23 11:08 Resp 17 05/16/23 11:08 BP 109/71 05/16/23 11:08 Pulse Ox 98 05/16/23 11:08 O2 Del Method Nasal Cannula 05/16/23 11:08 O2 Flow Rate 3 05/16/23 08:39 Discharge Plan Discharge Patient Disposition: Home Condition: Stable Prescriptions: New diltiazem HCl [Cardizem CD] 360 mg capsule,extended release 24hr 360 mg PO DAILY 30 Days Qty: 30 0RF Continued (DME) oxygen-air delivery systems Device See Rx Instructions .Route Rx Instructions: As directed hydrocodone-acetaminophen 10-325 mg tablet 1 tab PO Q6H PRN (Reason: Pain) sucralfate 1 gram tablet 1 g PO TID pantoprazole 40 mg tablet,delayed release (DR/EC) 40 mg PO BID 90 Days Qty: 180 0RF zolpidem 10 mg tablet 10 mg PO BEDTIME Qty: 30 1RF montelukast 10 mg tablet 10 mg PO BEDTIME PRN (Reason: Allergy Symptoms) Qty: 90 0RF Rx Instructions: 340 B alprazolam 0.5 mg tablet 0.5 mg PO BID PRN (Reason: Anxiety) Qty: 60 1RF albuterol sulfate 2.5 mg /3 mL (0.083 %) Solution For Nebulization 2.5 mg INHALATION Q4H PRN (Reason: Shortness Of Breath) albuterol sulfate 90 mcg/actuation Hfa Aerosol Inhaler 1 puff INHALATION QID PRN (Reason: Shortness Of Breath) Anoro Ellipta 62.5-25 mcg/actuation blister with device 1 inh INHALATION BID Qty: 60 5RF gabapentin 300 mg Capsule 300 mg PO BID guaifenesin 400 mg tablet 400 mg PO TID PRN (Reason: Congestion) cholecalciferol (vitamin D3) [Vitamin D3] 25 mcg (1,000 unit) Tablet 25 mcg PO DAILY ondansetron 4 mg tablet,disintegrating 4 mg PO Q6H PRN (Reason: nausea and vomiting) Qty: 14 0RF Changed metoprolol tartrate 25 mg tablet 12.5 mg PO BID 30 Days Qty: 30 3RF Discontinued diltiazem HCl 240 mg capsule,extended release 24 hr 240 mg PO QAM Qty: 90 1RF diltiazem HCl 30 mg tablet 30 mg PO Q8H PRN (Reason: Blood Pressure) Qty: 60 0RF Rx Instructions: TAKE IF BP OVER 110 340 B Discharge Orders: Discharge Order (Routine); Ordered 05/16/23 Ordered By: Moses Miranda Referrals: Sd Vargas [Primary Care Provider] - 05/21/23 10:00 am Discharge Diet: Cardiac Discharge Activity: Resume usual activity Patient Instructions: Metoprolol (By mouth) (Lopressor, Toprol XL), Diltiazem (By mouth) (Cardizem, Cardizem CD, Cardizem LA, Cardizem SR), Heart Failure (DC), CHF Stoplight, Opioid Safety Activity Restrictions/Additional Instructions: - If you have recurrent chest palpitations please go to emergency room, ? Please follow-up with cardiology tomorrow, at [facility] Hospital Discharge Attestations Time Spent in Discharge Care*: greater than 30 min Status at Discharge: Cognitive status at discharge: cognitively intact , Behavioral status at discharge: cooperative , Quality Metrics Clinical Quality Measures [ No reported AMI, CVA or VTE this stay] Coding Level of Care Code 13624 Total time (in minutes) for Discharge: 45 Diagnoses Atrial fibrillation with RVR I48.91 Sick sinus syndrome I49.5 Type 2 diabetes mellitus without complication, without long-term current use of insulin E11.9 Diabetes mellitus assisted insulin use: without stock sorter use Diabetes mellitus complication status: without complication GERD (gastroesophageal reflux disease) K21.9 GI bleed K92.2 Panlobular emphysema J43.1 COPD type: emphysema Emphysema type: panlobular
--- NOTE | 2023-05-16 13:12 | PC.SOCIAL ---
IMM Update pg 2 of IMM not updated @ this time as patient is currently in observation status.
--- NOTE | 2023-05-16 15:02 | ECG_ITS ---
[facility] Test Date: 2023-05-16 Pat Name: Rebeca Álvarez Department: Room: 108 Gender: Female Ripsawyer: : 1950 Requested By: Moses Miranda Order Number: [id number] Mohamud MD: Diandra Fall M.D. Measurements Intervals [place] Rate: 125 P: 0 GA: 0 QRS: -13 QRSD: 85 T: 67 QT: 301 QTc: 434 Interpretive Statements ATRIAL FIBRILLATION WITH RAPID VENTRICULAR RESPONSE INFERIOR MYOCARDIAL INFARCTION , PROBABLY OLD [40+ ms Q WAVE AND/OR ST/T ABNORMALITY IN II/aVF] NON SPECIFIC ST CHANGES ARTIFACT Compared to ECG 05/15/2023 17:20:14 Myocardial infarct finding now present Intraventricular conduction delay no longer present ST (T wave) deviation no longer present Electronically Signed On 05-20-2023 21:40:20 SUPERVISOR COREMAK[employer] by Diandra Fall M.D. [email or web address]
[2023-05-16 15:15] LABS: Troponin(5th) Baseline 19 ng/L (0-10)
[2023-05-16 15:28] LABS: Procalcitonin 0.03 ng/mL (0-0.5)
[2023-05-16 15:57] LABS: Adenovirus Not Detected (NOT DETECT); Chlamydia Pneumoniae Not Detected (NOT DETECT); Coronavirus 229E,HKU1,NL63,OC4 Not Detected (NOT DETECT); Human Metapneumovirus Not Detected (NOT DETECT); Human Rhinovirus/Enterovirus Not Detected (NOT DETECT); Influenza A Not Detected (NOT DETECT); Influenza A H1 Not Detected (NOT DETECT); Influenza A H1-2009 Not Detected (NOT DETECT); Influenza A H3 Not Detected (NOT DETECT); Influenza B Not Detected (NOT DETECT); Mycoplasma Pneumoniae Not Detected (NOT DETECT); Parainfluenza Virus Type 1 Not Detected (NOT DETECT); Parainfluenza Virus Type 2 Not Detected (NOT DETECT); Parainfluenza Virus Type 3 Not Detected (NOT DETECT); Parainfluenza Virus Type 4 Not Detected (NOT DETECT); Respiratory Syncytial Virus A Not Detected (NOT DETECT); Respiratory Syncytial Virus B Not Detected (NOT DETECT); SARS-COV-2 Not Detected (NOT DETECT)
[2023-05-16 16:28] LABS: Glucose Point of Care 135 mg/dL (70-110)
--- NOTE | 2023-05-16 18:11 | ECG_ITS ---
[facility] Test Date: 2023-05-16 Pat Name: Rebeca Álvarez Department: Room: 108 Gender: Female Automat Watcher: : 1950 Requested By: Moses Miranda Order Number: [id number] Mohamud MD: Regina Swartz M.D. Measurements Intervals [place] Rate: 82 P: 0 NM: 0 QRS: -15 QRSD: 83 T: 87 QT: 269 QTc: 316 Interpretive Statements ATRIAL FLUTTER/TACHYCARDIA INFERIOR MYOCARDIAL INFARCTION , OF INDETERMINATE AGE [40+ ms Q WAVE AND/OR ST/T ABNORMALITY IN II/aVF] Compared to ECG 05/16/2023 15:02:49 No significant changes Electronically Signed On 05-17-2023 16:58:09 POWER BRAKE OPERATOR by Regina Swartz M.D. [id number]
[2023-05-16 18:39] LABS: Troponin 5 2HR 19.21 ng/L (0-10); Troponin 5 2HR Delta 0.21 ABS# (0-10)
[2023-05-16] MEDS: enoxaparin 40 mg/0.4 mL Syringe SUBCUT (20:39)
[2023-05-16 21:00] LABS: Troponin 5 6HR 18.26 ng/L (0-10)
[2023-05-16 21:02] LABS: Troponin 5 6HR Delta -0.74 ng/L (0-12)
[2023-05-16] MEDS: zolpidem 5 mg Tablet 10 MG PO (23:18)
[2023-05-17] VITALS (7 sets, daily range): BP systolic 96–157; BP diastolic 63–81; PULSE 67–77; RESP 14–18; TEMP 36.6–37.1; O2SAT 92–100
[2023-05-17] MEDS: dilTIAZem 60 mg Tablet 90 MG PO ×3 (03:37→16:41)
[2023-05-17 04:45] LABS: Basophils % 0.5 %; Eosinophils # 0.1 10^3/uL (0.0-0.8); Eosinophils % 1.3 %; Hematocrit 38.1 % (36-47); Lymphocytes # 3.4 10^3/uL (0.8-4.8); Lymphocytes % 41.3 %; Mean Corpuscular Hemoglobin 30.6 pg (27-33); Mean Corpuscular Volume 95.5 fl (85-98); Monocytes # 0.6 10^3/uL (0.2-0.9); Monocytes % 7.6 %; Neutrophils # 4.07 10^3/uL (1.8-7.7); Neutrophils % 49.1 %; Nucleated Red Blood Cells % 0 %; Platelet Count 365 10^3/cmm (157-399); Red Blood Count 3.99 10^6/uL (3.85-5.65); Red Cell Distribution Width 12.8 % (12.1-15.1)
[2023-05-17 05:02] LABS: Alanine Aminotransferase < 5 U/L (0-33); Albumin Level 3.2 g/dL (3.5-5.2); Alkaline Phosphatase 89 U/L (35-105); Aspartate Amino Transferase 8 U/L (0-32); Blood Urea Nitrogen 11 mg/dL (8-23); Calcium 9.1 mg/dL (8.5-10.5); Carbon Dioxide 27 mmol/L (22-29); Chloride 105 mmol/L (98-107); Globulin 2.3 g/dL (1.3-4.6); Glucose 93 mg/dL (65-115); Magnesium 1.9 mg/dL (1.7-2.3); Osmolality Calculated 291 mOsm/kg (285-295); Phosphorus 3.2 mg/dL (2.5-4.5); Sodium 141 mmol/L (136-145); Total Bilirubin 0.3 mg/dL (0.15-1.2); Total Protein 5.5 g/dL (6.6-8.7)
[2023-05-17 05:15] LABS: NT Pro B Type Natriuretic Pept 2763 pg/mL (0-125)
[2023-05-17 05:58] LABS: Glucose Point of Care 137 mg/dL (70-110)
[2023-05-17] MEDS: HYDROcodone-acetaminophen 10-325 mg Tablet 1 TAB PO (09:36)
[2023-05-17] MEDS: metoprolol tartrate 25 mg Tablet 12.5 MG PO (09:36)
[2023-05-17] MEDS: ondansetron 2 mg/ML SDV 2 mL 4 MG IVP (09:41)
[2023-05-17 11:54] LABS: Glucose Point of Care 131 mg/dL (70-110)
--- NOTE | 2023-05-17 14:35 | PM.PN ---
Subjective Subjective: This is a progress note from 05/16/2023, patient was seen in the morning, she is doing well, she has a appointment with [facility] tomorrow, she is wondering if he can transfer her to [facility], she has been waiting for this appointment for the last 2 months, for her A-fib, I spoke to transfer center at [facility], they are currently full, patient was seen in the evening, her heart rates were controlled throughout the afternoon, but she developed A-fib with RVR throughout the afternoon, so we will have to watch her overnight Vitals/I&O/Wt Last Vital Signs Temp 98.8 F 05/17/23 11:27 Pulse 72 05/17/23 11:27 Resp 17 05/17/23 11:27 BP 96/63 05/17/23 11:27 Pulse Ox 95 05/17/23 11:27 O2 Del Method Nasal Cannula 05/17/23 11:27 O2 Flow Rate 3 05/17/23 08:00 05/16/23 05/17/23 05/17/23 22:59 06:59 14:59 Intake Total 640 / 1120 150 / 1270 320 / 320 Output Total 100 / 100 Balance 540 / 1020 150 / 1170 320 / 320 Weight last 48 hrs Weight 54.023 kg Weight 69.4 kg Weight 69.4 kg Weight 69.4 kg Physical Exam Const: COMMON NORMALS: no acute distress Resp: COMMON NORMALS: normal respiratory effort, No retractions, No use of accessory muscles and clear to auscultation bilaterally AUSCULTATION: clear to auscultation bilaterally Cardio: COMMON NORMALS: regular rate, regular rhythm, S1 normal heart sound present and S2 normal heart sound present RATE: regular rate RHYTHM: regular rhythm HEART SOUNDS: S1 normal heart sound present and S2 normal heart sound present GI: COMMON NORMALS: Normal to inspection, nondistended, normoactive bowel sounds present and non-tender Extremity: COMMON NORMALS: no pedal edema Data 05/17/23 04:15 05/17/23 04:15 A&P Assessment and plan (1) Atrial fibrillation with RVR: (2) Sick sinus syndrome: (3) T2DM (type 2 diabetes mellitus): Qualifiers: Diabetes mellitus group home insulin use: without group home use Diabetes mellitus complication status: without complication Qualified Code(s): E11.9 - Type 2 diabetes mellitus without complications (4) GERD (gastroesophageal reflux disease): (5) GI bleed: (6) COPD (chronic obstructive pulmonary disease): Qualifiers: COPD type: emphysema Emphysema type: panlobular Qualified Code(s): J43.1 - Panlobular emphysema Plan Sick sinus syndrome A-fib RVR Cardizem drip at 7.5 mg Continue Cardizem 360 mg extended release Metoprolol 12.5 twice daily Keep magnesium of 2 potassium of 4 Patient has an appointment with nail machine operator this at [facility] for pacemaker placement in consideration for ablation. Full code Cardiac diet/consistent carb Start sliding scale Chronic hypoxia requires 3 L at baseline Not a candidate for anticoagulation because of history of GI bleed hemoglobin has remained stable since June when she required 2 units PRBC for diverticular bleed Attestations Medical Necessity Statement*: Patient requires hospitalization for sick sinus syndrome, A-fib with RVR Diagnoses Atrial fibrillation with RVR I48.91 Sick sinus syndrome I49.5 Type 2 diabetes mellitus without complication, without long-term current use of insulin E11.9 Diabetes mellitus intermodal dispatcher insulin use: without group home use Diabetes mellitus complication status: without complication GERD (gastroesophageal reflux disease) K21.9 GI bleed K92.2 Panlobular emphysema J43.1 COPD type: emphysema Emphysema type: panlobular
[2023-05-18 08:31] LABS: Glucose Point of Care 93 mg/dL (70-110)
== END 2023-05-17 17:13 | disposition home or self-care (01) ==
LOC: ER 17:18 → CSU 19:45
PROVIDERS: Admitting Provider Internal Medicine; Emergency Provider Emergency Medicine; PCP Family Medicine; Visit Provider Family Medicine
DX: I48.91 Unspecified atrial fibrillation (principal); I49.5 Sick sinus syndrome; E11.9 Type 2 diabetes mellitus without complications; K21.9 Gastro-esophageal reflux disease without esophagitis; K92.2 Gastrointestinal hemorrhage, unspecified; J43.1 Panlobular emphysema; R00.0 Tachycardia, unspecified; J44.9 Chronic obstructive pulmonary disease, unspecified; F17.210 Nicotine dependence, cigarettes, uncomplicated; E11.22 Type 2 diabetes mellitus with diabetic chronic kidney disease; I12.9 Hypertensive chronic kidney disease with stage 1 through stage 4 chronic kidney disease, or unspecified chronic kidney disease; N18.9 Chronic kidney disease, unspecified; Z79.01 Long term (current) use of anticoagulants
CPT/HCPCS: 36415; 36416; 71045; 80048; 80053; 82962; 83690; 83735; 83880; 84100; 84145; 84484; 85025; 86140; 87486; 87581; 87633; 93005; 93306; 96365; 96372; 96375; 96376; 99285; G0378; J1650; J2405; J3490; J7030

== ENCOUNTER 2023-05-18 10:36 | Emergency (ER) | payer MEDICARE, BC, SELFPAY ==
[2023-05-18 11:13] VITALS: BP 111/69; PULSE 86; RESP 18; TEMP 36.9; O2SAT 97; BMI 21.7
--- NOTE | 2023-05-18 11:18 | ECG_ITS ---
[facility] Test Date: 2023-05-18 Pat Name: Rebeca Álvarez Department: Room: Gender: Female Spray Machine Operator: : 1950 Requested By: Delano Franco Order Number: [id number] Mohamud MD: Diandra Fall M.D. Measurements Intervals [place] Rate: 88 P: 0 AL: 0 QRS: 17 QRSD: 82 T: 39 QT: 328 QTc: 399 Interpretive Statements ATRIAL FLUTTER ST DEVIATION AND MODERATE T-WAVE ABNORMALITY, CONSIDER ANTERIOR ISCHEMIA [-0.1+ mV T-WAVE IN V3/V4] Compared to ECG 05/16/2023 18:18:35 T-wave abnormality now present Possible ischemia now present Myocardial infarct finding no longer present Electronically Signed On 05-19-2023 6:04:23 STATION REPAIRER by Diandra Fall M.D. [email or web address]™l.[facility]. [facility] hospitalRevcaster[facility] christ hospital.[employer]/store/NU/[id number] saini
--- NOTE | 2023-05-18 11:18 | XR_ITS ---
WS: [id number] Portable AP upright chest, 05/18/2023 Clinical Data: palpitations Comparison: Portable chest, 05/15/2023 Findings: The heart is enlarged. No nodules, masses or effusions are seen. No pneumonia or pneumothor ax is present. The pulmonary vascularity is not increased. The aortic arch and descending thoracic ao rta show atherosclerosis and mild tortuosity. There are monitor leads on the chest wall. There are cl ips in the right axilla from earlier surgery. Impression: Atherosclerosis and cardiomegaly.
--- NOTE | 2023-05-18 11:30 | ED_ITS ---
HPI - Arrhythmia/Palpitations 2 General: Chief Complaint: Arrhythmia/Palpitations Stated Complaint: afib Time Seen by Provider: 05/18/23 11:17 History of Present Illness: Presents to the ER with complaints of tachycardia/atrial fibrillation with RVR. Patient was admitted for the last several days here with A-fib with RVR to the point of being on a Cardizem drip at 1 time. Patient was discharged last night after she went back into a normal rhythm. Throughout the night patient said her heart rate end up getting all the way up to 100 4050 bpm. Patient did take her Cardizem 360 mg p.o. this morning at 6 AM and her heart rate was still in the 140s. Upon arrival to the ER patient's heart rate is down in the 70s and atrial flutter type pattern. Patient says she still does not feel good. And was told to return to the ER if her heart acts up again. MD complaint: rapid heart beat, skipped beats , palpitations and atrial fibrillation Onset (ago): hour(s) (Restarted throughout the night) Duration: constant Severity: moderate Context: occurred during rest Arrhythmia history: atrial fibrillation Associated symptoms: Reports no associated symptoms Review of Systems 2 General: Reports: 10 or more systems reviewed and unremarkable except in HPI and below PFSH ED 2 PFSH: Medical History Acute blood loss anemia Atrial fibrillation Anemia Diverticulitis GERD (gastroesophageal reflux disease) History of breast cancer Pneumonia Sinus node dysfunction Atrial fibrillation Abdominal pain Chronic kidney disease Atrial fibrillation with RVR Acute kidney injury superimposed on CKD Generalized weakness Fatigue Atrial fibrillation Acute diastolic heart failure Chronic anticoagulation Right heart failure T2DM (type 2 diabetes mellitus) History of syncope Volume overload HERBER (acute kidney injury) Hypokalemia Dehydration Atrial fibrillation with rapid ventricular response HTN (hypertension) with goal to be determined COPD (chronic obstructive pulmonary disease) Abdominal pain Surgical History History of lumpectomy of right breast lymph node removal History of knee replacement History of radical hysterectomy Hx of cholecystectomy Family History Mother , at age 62 Cancer Cervical Emphysema lung Father , at age 64 Black lung disease Social History (Reviewed 05/18/23 @ 11:32 by JOESPH Laura Smoking and tobacco/nicotine status: current every day tobacco/nicotine user Alcohol intake: never Substance/Drug Use: never Household members: spouse Marital status: / Current occupational status: retired Physical Exam 2 Const: COMMON NORMALS: no acute distress, average body habitus, patient oriented x3, no limitations, healthy appearing, alert and well nourished HENMT: COMMON NORMALS: normocephalic, atraumatic, hearing grossly normal bilaterally, external ears normal, Normal external nose present, moist oral mucous membranes and oropharynx normal HEAD & SCALP: normocephalic and atraumatic NOSE: Normal external nose present EXTERNAL EAR: Yes external ears normal Eye: COMMON NORMALS: Equal, round and reactive pupils present, EOMs intact bilaterally, conjunctivae normal and no scleral icterus CONJUNCTIVA: Yes conjunctivae normal PUPIL: Yes Equal, round and reactive pupils present Neck/C-Spine: COMMON NORMALS: no JVD Chest: COMMONS NORMALS: normal inspection of the chest and normal palpation of entire chest wall Resp: COMMON NORMALS: normal respiratory effort, No retractions, No use of accessory muscles and clear to auscultation bilaterally AUSCULTATION: clear to auscultation bilaterally Cardio: COMMON NORMALS: no JVD, S1 normal heart sound present and S2 normal heart sound present; negative for regular rate and negative for regular rhythm (Irregularly irregular rhythm) RATE: abnormal rate RHYTHM: abnormal rhythm (Irregularly irregular rhythm) HEART SOUNDS: S1 normal heart sound present and S2 normal heart sound present GI: COMMON NORMALS: Normal to inspection, nondistended, normoactive bowel sounds present, Soft to palpation, non-tender, No hepatosplenomegaly present and no masses PALPATION: Yes Soft to palpation and Yes No hepatosplenomegaly present Neuro: COMMON NORMALS: patient oriented x3 SENSORIUM/ORIENTATION: Yes alert Course 2 Vital Signs: Vital signs: Vital Signs Temperature 98.4 F 05/18/23 11:13 Pulse Rate 57 L 05/18/23 13:55 Respiratory Rate 14 05/18/23 13:55 Blood Pressure 111/69 05/18/23 12:07 Pulse Oximetry 98 05/18/23 13:55 Oxygen Delivery Me thod Room Air 05/18/23 13:55 MDM - Arrhythmia/Palpitations Medical Decision Making Patient was just discharged from the hospital last night from being admitted with A-fib with RVR and being put on a Cardizem drip. She was discharged in a more normal rhythm on Cardizem p.o. Throughout the night patient had an episode of atrial fibrillation with RVR of what it sounds like. Patient said rate was in the 140s. Patient took her Cardizem this morning and by time she come to the ER heart rate was back down in the 80s. EKG shows an atrial flutter type pattern patient is not a candidate for anticoagulation. Patient is on Cardizem currently. Patient has an appointment with a industrial safety and health specialist in [place] on June 19 for consideration of ablation and/or pacemaker. Patient is otherwise stable and atrial flutter type pattern that she has been in previously. Her rate is controlled. Patient be discharged home to follow-up with her industrial safety and health specialist or return on an as-needed basis. Differential Diagnosis Likely palpitations, artial fibrillation and artial flutter; Unlikely anxiety, sinus tachycardia, ventricular premature beats, supraventricular tachycardia, ventricular tachycardia or WPW Medical Records I reviewed the patient's medical records. Lab Data I reviewed the patient's lab results. 05/18/23 11:45 05/18/23 11:45 Laboratory Results WBC 8.67 10^3/uL (3.29-11.43) 05/18/23 11:45 RBC 4.28 10^6/uL (3.85-5.65) 05/18/23 11:45 Hgb 13.30 g/dL (11.27-16.99) 05/18/23 11:45 Hct 40.9 % (36-47) 05/18/23 11:45 MCV 95.6 fl (85-98) 05/18/23 11:45 MCH 31.1 pg (27-33) 05/18/23 11:45 MCHC 32.5 g/dL (30-55) 05/18/23 11:45 RDW 13.2 % (12.1-15.1) 05/18/23 11:45 Plt Count 412 10^3/cmm (157-399) H 05/18/23 11:45 MPV 8.7 fL (7.4-10.4) 05/18/23 11:45 Neut % (Auto) 63.4 % 05/18/23 11:45 Lymph % (Auto) 27.8 % 05/18/23 11:45 [place] % (Auto) 7.3 % 05/18/23 11:45 Eos % (Auto) 0.9 % 05/18/23 11:45 Baso % (Auto) 0.5 % 05/18/23 11:45 Neut # (Auto) 5.50 10^3/uL (1.8-7.7) 05/18/23 11:45 Lymph # (Auto) 2.4 10^3/uL (0.8-4.8) 05/18/23 11:45 [place] # (Auto) 0.6 10^3/uL (0.2-0.9) 05/18/23 11:45 Eos # (Auto) 0.1 10^3/uL (0.0-0.8) 05/18/23 11:45 Baso # (Auto) 0.0 10^3/uL (0.0-0.1) 05/18/23 11:45 Nucleated RBC % (auto) 0 % 05/18/23 11:45 Nucleated RBCs # 0.0 /100WBC 05/18/23 11:45 Sodium 140 mmol/L (136-145) 05/18/23 11:45 Potassium 4.1 mmol/L (3.5-5.1) 05/18/23 11:45 Chloride 101 mmol/L (98-107) 05/18/23 11:45 Carbon Dioxide 30 mmol/L (22-29) H 05/18/23 11:45 Anion Gap 13.1 (5-19) 05/18/23 11:45 BUN 10 mg/dL (8-23) 05/18/23 11:45 Creatinine 1.0 mg/dL (0.5-0.9) H 05/18/23 11:45 GFR Calculation Not Reportable 05/18/23 11:45 Glucose 112 mg/dL (65-115) 05/18/23 11:45 Calculated Osmolality 290 mOsm/kg (285-295) 05/18/23 11:45 Calcium 9.7 mg/dL (8.5-10.5) 05/18/23 11:45 Magnesium 1.9 mg/dL (1.7-2.3) 05/18/23 11:45 Total Bilirubin 0.3 mg/dL (0.15-1.2) 05/18/23 11:45 AST 12 U/L (0-32) 05/18/23 11:45 ALT < 5 U/L (0-33) 05/18/23 11:45 Alkaline Phosphatase 101 U/L (35-105) 05/18/23 11:45 Troponin T Baseline 16 ng/L (0-10) H 05/18/23 11:45 Total Protein 6.4 g/dL (6.6-8.7) L 05/18/23 11:45 Albumin 4.0 g/dL (3.5-5.2) 05/18/23 11:45 Globulin 2.4 g/dL (1.3-4.6) 05/18/23 11:45 All radiology interpretation(s) finalized by discharge EKG Data EKG 1: I personally reviewed and interpreted this EKG as follows: EKG interpretation date: 05/18/23 EKG interpretation time: 10:47 Prior EKG tracings: available for review Interpretation: EKG showed ventricular rate 88 bpm, QRS duration 82, QTc of 374, atrial flutter/tachycardia, ST deviation moderate T wave abnormality EKG 2: I personally reviewed and interpreted this EKG as follows: EKG interpretation date: 05/18/23 EKG interpretation time: 12:37 Prior EKG tracings: available for review Interpretation: EKG shows ventricular rate 60 beats a minute, QRS duration 86, QTc 395, atrial flutter/tachycardia, moderate T wave abnormality Discharge Plan Discharge Patient Disposition: Home Clinical Impression: Palpitations Atrial flutter Qualifiers: Atrial flutter type: unspecified Qualified Code(s): I48.92 - Unspecified atrial flutter Condition: Stable Prescriptions: No Action (DME) oxygen-air delivery systems Device See Rx Instructions .Route Rx Instructions: As directed hydrocodone-acetaminophen 10-325 mg tablet 1 tab PO Q6H MDD 3 tabs PRN (Reason: Pain) sucralfate 1 gram tablet 1 g PO TID PRN (Reason: ulcers) pantoprazole 40 mg tablet,delayed release (DR/EC) 40 mg PO BID 90 Days Qty: 180 0RF zolpidem 10 mg tablet 10 mg PO BEDTIME Qty: 30 1RF alprazolam 0.5 mg tablet 0.5 mg PO BID PRN (Reason: Anxiety) Qty: 60 1RF albuterol sulfate 2.5 mg /3 mL (0.083 %) Solution For Nebulization 2.5 mg INHALATION Q4H PRN (Reason: Shortness Of Breath) albuterol sulfate 90 mcg/actuation Hfa Aerosol Inhaler 1 puff INHALATION QID PRN (Reason: Shortness Of Breath) Anoro Ellipta 62.5-25 mcg/actuation blister with device 1 inh INHALATION BID Qty: 60 5RF gabapentin 300 mg Capsule 300 mg PO BID diltiazem HCl [Cardizem CD] 360 mg capsule,extended release 24hr 360 mg PO DAILY 30 Days Qty: 30 0RF montelukast 10 mg tablet 10 mg PO BEDTIME Rx Instructions: 340 B metoprolol tartrate 25 mg tablet 12.5 mg PO DAILY guaifenesin 400 mg tablet 400 mg PO TID PRN (Reason: Congestion) cholecalciferol (vitamin D3) [Vitamin D3] 25 mcg (1,000 unit) Tablet 25 mcg PO DAILY ondansetron 4 mg tablet,disintegrating 4 mg PO Q6H PRN (Reason: nausea and vomiting) Qty: 14 0RF Discharge Orders: Discharge ED (Routine); Ordered 05/18/23 Ordered By: Delano Franco Referrals: Sd Vargas [Primary Care Provider] - 1 week Patient Instructions: Atrial Flutter (ED) Activity Restrictions/Additional Instructions: Please continue all medications especially your Cardizem as this may keep your heart rate controlled and help you convert to sinus rhythm. Please keep your appointment with the industrial safety and health specialist on June 19. Please follow-up with your family practice physician within the next 7 to 10 days for further evaluation and treatment. If your heart rate seems too fast or too slow or you appear lightheaded dizzy like you are going to pass out please return to the ER for further evaluation. Coding Level of Care Code ED Networking Administrator for Emely Silva
[2023-05-18 11:51] LABS: Basophils % 0.5 %; Eosinophils # 0.1 10^3/uL (0.0-0.8); Eosinophils % 0.9 %; Hematocrit 40.9 % (36-47); Lymphocytes # 2.4 10^3/uL (0.8-4.8); Lymphocytes % 27.8 %; Mean Corpuscular HGB Conc 32.5 g/dL (30-55); Mean Corpuscular Hemoglobin 31.1 pg (27-33); Mean Corpuscular Volume 95.6 fl (85-98); Mean Platelet Volume 8.7 fL (7.4-10.4); Monocytes # 0.6 10^3/uL (0.2-0.9); Monocytes % 7.3 %; Neutrophils % 63.4 %; Nucleated Red Blood Cells % 0 %; Platelet Count 412 10^3/cmm (157-399); Red Blood Count 4.28 10^6/uL (3.85-5.65); Red Cell Distribution Width 13.2 % (12.1-15.1); White Blood Count 8.67 10^3/uL (3.29-11.43)
[2023-05-18 12:07] VITALS: BP 111/69; PULSE 69; PULSE 72; RESP 17; O2SAT 97
[2023-05-18 12:09] LABS: Alanine Aminotransferase < 5 U/L (0-33); Alkaline Phosphatase 101 U/L (35-105); Anion Gap 13.1 (5-19); Aspartate Amino Transferase 12 U/L (0-32); Blood Urea Nitrogen 10 mg/dL (8-23); Calcium 9.7 mg/dL (8.5-10.5); Carbon Dioxide 30 mmol/L (22-29); Chloride 101 mmol/L (98-107); Globulin 2.4 g/dL (1.3-4.6); Glucose 112 mg/dL (65-115); Magnesium 1.9 mg/dL (1.7-2.3); Osmolality Calculated 290 mOsm/kg (285-295); Potassium 4.1 mmol/L (3.5-5.1); Sodium 140 mmol/L (136-145); Total Bilirubin 0.3 mg/dL (0.15-1.2); Total Protein 6.4 g/dL (6.6-8.7); Troponin(5th) Baseline 16 ng/L (0-10)
--- NOTE | 2023-05-18 12:37 | ECG_ITS ---
[facility] Test Date: 2023-05-18 Pat Name: Rebeca Álvarez Department: Room: Gender: Female Traffic Enumerator: : 1950 Requested By: Delano Franco Order Number: [id number] Mohamud MD: Diandra Fall M.D. Measurements Intervals [place] Rate: 60 P: 0 [place]: 0 QRS: 20 QRSD: 86 T: 59 QT: 394 QTc: 395 Interpretive Statements ATRIAL FLUTTER MODERATE T-WAVE ABNORMALITY, CONSIDER ANTERIOR ISCHEMIA [-0.1+ mV T-WAVE IN V3/V4] Compared to ECG 05/16/2023 18:18:35 T-wave abnormality now present Possible ischemia now present Myocardial infarct finding no longer present Electronically Signed On 05-19-2023 6:13:02 SAND MIXER by Diandra Fall M.D. [email or web address] [email or web address] health river oaksBrian Industriesmar[facility] hospital.YogiPlay/store/OM/[id number]
--- NOTE | 2023-05-18 13:39 | PC.PHAR ---
pt states she takes care of her own medications-pt states she was just discharged from the hospital 05/17/23-pt states she uses her anoro ellipta 1p bid ext shows last filled 05/02/23 30d/s 1p daily-pt states she takes gabapentin 300mg bid but states not taken in a week ext med history doesnt show when last filled but was on med list from when pt was admitted 05/14/23-pt states she takes norco 10-325mg 1 tab po q6h prn ext shows last filled 05/03/23 30d/s 1 tab po q8h prn max 3 tabs daily-pts discharge papers from 05/17/23 has metoprolol tartrate 25mg take 12.5mg bid pt states she didnt see the change and was going to continue the 12.5mg daily-pt states she takes pantoprazole 40mg bid ext shows last filled 05/03/23 30d/s 40mg daily-pt states she has sucralfate but isnt taking ext shows last filled 03/05/23 30d/s 1g tid-notes are made in the pharmacy comments
[2023-05-18 13:55] VITALS: PULSE 57; RESP 14; O2SAT 98
== END 2023-05-18 14:54 | disposition home or self-care (01) ==
PROVIDERS: Emergency Provider Emergency Medicine; PCP Family Medicine
DX: I48.92 Unspecified atrial flutter (principal); R00.2 Palpitations; Z72.0 Tobacco use; Z85.3 Personal history of malignant neoplasm of breast; E11.22 Type 2 diabetes mellitus with diabetic chronic kidney disease; I13.0 Hypertensive heart and chronic kidney disease with heart failure and stage 1 through stage 4 chronic kidney disease, or unspecified chronic kidney disease; N18.9 Chronic kidney disease, unspecified; I50.31 Acute diastolic (congestive) heart failure; J44.9 Chronic obstructive pulmonary disease, unspecified
CPT/HCPCS: 36415; 71045; 80053; 83735; 84484; 85025; 93005; 99285

== ENCOUNTER → 2023-05-23 10:07 | Outpatient (BNVA) | payer MEDICARE, BC, SELFPAY | PROVIDERS: PCP Family Medicine; Visit Provider Nurse Practitioner Family | DX: R00.2 Palpitations (principal); I48.92 Unspecified atrial flutter; I48.91 Unspecified atrial fibrillation; I27.20 Pulmonary hypertension, unspecified; F17.200 Nicotine dependence, unspecified, uncomplicated | CPT/HCPCS: 93005 ==

== ENCOUNTER 2023-05-23 10:30 | Emergency (ER) | payer MEDICARE, BC, SELFPAY ==
--- NOTE | 2023-05-23 10:33 | XR_ITS ---
WS: [id number] Portable AP upright chest, 05/23/2023 Clinical Data: cp Comparison: Portable chest, 05/18/2023 Findings: No nodules, masses or effusions are seen. The heart is enlarged. The pulmonary vascularity is not increased. No pneumonia or pneumothorax is seen. The aortic arch and descending thoracic aorta show mild tortuosity. There are monitor leads on the chest wall. There are surgical clips in the rig ht axilla. Impression: Atherosclerosis and cardiomegaly.
--- NOTE | 2023-05-23 10:37 | ECG_ITS ---
[facility] Test Date: 2023-05-23 Pat Name: Rebeca Álvarez Department: Room: Gender: Female Belt Maker: : 1950 Requested By: Roya Bautista Order Number: [id number] Mohamud MD: Harsh Hernandez M.D. Measurements Intervals [place] Rate: 120 P: 0 [place]: 0 QRS: 64 QRSD: 102 T: 127 QT: 324 QTc: 460 Interpretive Statements ATRIAL FLUTTER/TACHYCARDIA WITH RAPID VENTRICULAR RESPONSE NON SPECIFIC ST T WAVE CHANGES Compared to ECG 05/23/2023 10:14:50 Myocardial infarct finding now present Sinus tachycardia no longer present Indeterminate axis no longer present ST (T wave) deviation still present Electronically Signed On 05-23-2023 15:29:55 WATERSHED COORDINATOR by Harsh Hernandez M.D. [email or web address].[facility]par[facility].[employer]/store/[id number]
[2023-05-23 10:41] VITALS: BP 110/78; PULSE 128; RESP 18; TEMP 36.8; O2SAT 100; BMI 24.2
--- NOTE | 2023-05-23 10:54 | ECG_ITS ---
[facility] Test Date: 2023-05-23 Pat Name: Rebeca Álvarez Department: Room: Gender: Female Mica Builder: : 1950 Requested By: Roya Bautista Order Number: [id number] Mohamud MD: Harsh Hernandez M.D. Measurements Intervals [place] Rate: 100 P: 0 NV: 0 QRS: -34 QRSD: 81 T: 8 QT: 329 QTc: 426 Interpretive Statements ATRIAL FIBRILLATION WITH RAPID VENTRICULAR RESPONSE LEFT AXIS DEVIATION [QRS AXIS < -30] PATTERN CONSISTENT WITH PULMONARY DISEASE Compared to ECG 05/23/2023 10:14:50 Left-axis deviation now present Sinus tachycardia no longer present Indeterminate axis no longer present ST (T wave) deviation no longer present Electronically Signed On 05-23-2023 15:29:30 HOTEL ASSISTANT MANAGER by Harsh Hernandez M.D. [email or web address]/store/[id number]
[2023-05-23 11:07] LABS: Basophils % 0.5 %; Eosinophils # 0.2 10^3/uL (0.0-0.8); Eosinophils % 2.1 %; Hematocrit 41.2 % (36-47); Lymphocytes # 2.8 10^3/uL (0.8-4.8); Lymphocytes % 37.1 %; Mean Corpuscular HGB Conc 31.6 g/dL (30-55); Mean Corpuscular Volume 98.1 fl (85-98); Mean Platelet Volume 8.8 fL (7.4-10.4); Monocytes # 0.5 10^3/uL (0.2-0.9); Monocytes % 6.8 %; Neutrophils # 4.09 10^3/uL (1.8-7.7); Neutrophils % 53.4 %; Nucleated Red Blood Cells % 0 %; Platelet Count 389 10^3/cmm (157-399); Red Cell Distribution Width 13.4 % (12.1-15.1); White Blood Count 7.66 10^3/uL (3.29-11.43)
--- NOTE | 2023-05-23 11:11 | PC.PHAR ---
pt sts she has only been taking alprazolam, diltiazem 360mg, and hydrocodone fir the last three days- pt has stopped taking her metoprolol 12.5 mg bid because it makes her bp low last taken 3 weeks ago
[2023-05-23 11:23] LABS: Troponin(5th) Baseline 17 ng/L (0-10)
[2023-05-23 11:28] LABS: Alanine Aminotransferase < 5 U/L (0-33); Albumin Level 4.1 g/dL (3.5-5.2); Alkaline Phosphatase 102 U/L (35-105); Anion Gap 16.6 (5-19); Aspartate Amino Transferase 9 U/L (0-32); Blood Urea Nitrogen 13 mg/dL (8-23); Calcium 9.5 mg/dL (8.5-10.5); Carbon Dioxide 26 mmol/L (22-29); Chloride 104 mmol/L (98-107); Globulin 2.3 g/dL (1.3-4.6); Glucose 90 mg/dL (65-115); Osmolality Calculated 294 mOsm/kg (285-295); Potassium 4.6 mmol/L (3.5-5.1); Sodium 142 mmol/L (136-145); Total Bilirubin 0.3 mg/dL (0.15-1.2); Total Protein 6.4 g/dL (6.6-8.7)
--- NOTE | 2023-05-23 11:30 | ED_ITS ---
HPI - Chest Pain 2 General: Chief Complaint: Chest Pain Stated Complaint: chest pain Time Seen by Provider: 05/23/23 11:07 Source: patient Mode of arrival: ambulatory Limitations: no limitations History of Present Illness: 72-year-old female is well-known to the ER has a chronic history of A-fib she has been seen here multiple times for her A-fib she was sent down here from the cardiology clinic as her heart rate was in the 130s her heart rate now is in the 60s she has had ongoing chest pains. Denies any fevers. She was admitted last week for her A-fib. Associated symptoms: Reports palpitations; Deny abdominal pain, dyspnea, fever(s), nausea or vomiting Review of Systems 2 Const: Denies: fever(s), chills, body aches or change in appetite ENMT: Denies: throat pain or dental pain Card: Reports: chest pain, palpitations and irregular heart rhythm Resp: Denies: dyspnea GI: Denies: abdominal pain, nausea, vomiting or diarrhea Musc: Denies: neck pain or back pain Skin/Breast: Denies: rash Neuro: Denies: headache(s) PFSH ED 2 PFSH: Medical History Acute blood loss anemia Atrial fibrillation Anemia Diverticulitis GERD (gastroesophageal reflux disease) History of breast cancer Pneumonia Sinus node dysfunction Atrial fibrillation Abdominal pain Chronic kidney disease Atrial fibrillation with RVR Acute kidney injury superimposed on CKD Generalized weakness Fatigue Atrial fibrillation Acute diastolic heart failure Chronic anticoagulation Right heart failure T2DM (type 2 diabetes mellitus) History of syncope Volume overload HERBER (acute kidney injury) Hypokalemia Dehydration Atrial fibrillation with rapid ventricular response HTN (hypertension) with goal to be determined COPD (chronic obstructive pulmonary disease) Abdominal pain Surgical History History of lumpectomy of right breast lymph node removal History of knee replacement History of radical hysterectomy Hx of cholecystectomy Family History Mother , at age 62 Cancer Cervical Emphysema lung Father , at age 64 Black lung disease Social History Smoking and tobacco/nicotine status: current every day tobacco/nicotine user Alcohol intake: never Substance/Drug Use: never Household members: spouse Marital status: / Current occupational status: retired Physical Exam 2 Const: COMMON NORMALS: no acute distress, patient oriented x3 and healthy appearing HENMT: COMMON NORMALS: normocephalic and atraumatic HEAD & SCALP: n ormocephalic and atraumatic Neck/C-Spine: COMMON NORMALS: full ROM and supple Chest: COMMONS NORMALS: normal inspection of the chest and normal palpation of entire chest wall Resp: COMMON NORMALS: normal respiratory effort, No retractions, No use of accessory muscles and clear to auscultation bilaterally AUSCULTATION: clear to auscultation bilaterally Cardio: COMMON NORMALS: No murmurs present (Cardio) RATE: tachycardic R HYTHM: abnormal rhythm irregularly irregular GI: COMMON NORMALS: Normal to inspection, nondistended, normoactive bowel sounds present, Soft to palpation, non-tender and no masses PALPATION: Yes Soft to palpation Extremity: COMMON NORMALS: normal to inspection and full ROM Neuro: COMMON NORMALS: patient oriented x3, moves all extremities and no focal motor deficits Psych: COMMON NORMALS: mental status grossly normal, Normal thought process present and cooperative THOUGHT PROCESS: Normal thought process present Skin: COMMON NORMALS: no rashes or lesions noted and no wounds GENERAL SKIN EXAM: no rashes or lesions noted Course 2 Vital Signs: Vital signs: Vital Signs Temperature 98.3 F 05/23/23 10:41 Pulse Rate 66 05/23/23 12:09 Respiratory Rate 24 H 05/23/23 12:09 Blood Pressure 105/53 05/23/23 12:09 Pulse Oximetry 100 05/23/23 12:09 Oxygen Delivery Me thod Nasal Cannula 05/23/23 10:41 Oxygen Flow Rate 3 05/23/23 10:41 MDM - Chest Pain Medical Decision Making Patient presents here with A-fib with RVR heart rate here is much improved it is now in the 70s her first troponin here is at baseline she is feeling improved does not want a wait for second troponin she is stable for discharge no signs of ACS 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 Medical Records I reviewed the patient's medical records. Lab Data I reviewed the patient's lab results. 05/23/23 10:57 05/23/23 10:57 Laboratory Results WBC 7.66 10^3/uL (3.29-11.43) 05/23/23 10:57 RBC 4.20 10^6/uL (3.85-5.65) 05/23/23 10:57 Hgb 13.00 g/dL (11.27-16.99) 05/23/23 10:57 Hct 41.2 % (36-47) 05/23/23 10:57 MCV 98.1 fl (85-98) H 05/23/23 10:57 MCH 31.0 pg (27-33) 05/23/23 10:57 MCHC 31.6 g/dL (30-55) 05/23/23 10:57 RDW 13.4 % (12.1-15.1) 05/23/23 10:57 Plt Count 389 10^3/cmm (157-399) 05/23/23 10:57 MPV 8.8 fL (7.4-10.4) 05/23/23 10:57 Neut % (Auto) 53.4 % 05/23/23 10:57 Lymph % (Auto) 37.1 % 05/23/23 10:57 [place] % (Auto) 6.8 % 05/23/23 10:57 Eos % (Auto) 2.1 % 05/23/23 10:57 Baso % (Auto) 0.5 % 05/23/23 10:57 Neut # (Auto) 4.09 10^3/uL (1.8-7.7) 05/23/23 10:57 Lymph # (Auto) 2.8 10^3/uL (0.8-4.8) 05/23/23 10:57 [place] # (Auto) 0.5 10^3/uL (0.2-0.9) 05/23/23 10:57 Eos # (Auto) 0.2 10^3/uL (0.0-0.8) 05/23/23 10:57 Baso # (Auto) 0.0 10^3/uL (0.0-0.1) 05/23/23 10:57 Nucleated RBC % (auto) 0 % 05/23/23 10:57 Nucleated RBCs # 0.0 /100WBC 05/23/23 10:57 PT 12.60 SECONDS (12.1-14.9) 05/23/23 10:57 INR 0.91 (0.8-1.2) 05/23/23 10:57 Sodium 142 mmol/L (136-145) 05/23/23 10:57 Potassium 4.6 mmol/L (3.5-5.1) 05/23/23 10:57 Chloride 104 mmol/L (98-107) 05/23/23 10:57 Carbon Dioxide 26 mmol/L (22-29) 05/23/23 10:57 Anion Gap 16.6 (5-19) 05/23/23 10:57 BUN 13 mg/dL (8-23) 05/23/23 10:57 Creatinine 0.9 mg/dL (0.5-0.9) 05/23/23 10:57 GFR Calculation Not Reportable 05/23/23 10:57 Glucose 90 mg/dL (65-115) 05/23/23 10:57 Calculated Osmolality 294 mOsm/kg (285-295) 05/23/23 10:57 Calcium 9.5 mg/dL (8.5-10.5) 05/23/23 10:57 Total Bilirubin 0.3 mg/dL (0.15-1.2) 05/23/23 10:57 AST 9 U/L (0-32) 05/23/23 10:57 ALT < 5 U/L (0-33) 05/23/23 10:57 Alkaline Phosphatase 102 U/L (35-105) 05/23/23 10:57 Troponin T Baseline 17 ng/L (0-10) H 05/23/23 10:57 Total Protein 6.4 g/dL (6.6-8.7) L 05/23/23 10:57 Albumin 4.1 g/dL (3.5-5.2) 05/23/23 10:57 Globulin 2.3 g/dL (1.3-4.6) 05/23/23 10:57 All radiology interpretation(s) finalized by discharge Discharge Plan Discharge Patient Disposition: Home Clinical Impression: Atrial fibrillation Condition: Stable Prescriptions: No Action (DME) oxygen-air delivery systems Device See Rx Instructions .Route Rx Instructions: As directed hydrocodone-acetaminophen 10-325 mg tablet 1 tab PO Q6H MDD 3 tabs PRN (Reason: Pain) pantoprazole 40 mg tablet,delayed release (DR/EC) 40 mg PO BID 90 Days Qty: 180 0RF zolpidem 10 mg tablet 10 mg PO BEDTIME Qty: 30 1RF alprazolam 0.5 mg tablet 0.5 mg PO BID PRN (Reason: Anxiety) Qty: 60 1RF albuterol sulfate 2.5 mg /3 mL (0.083 %) Solution For Nebulization 2.5 mg INHALATION Q4H PRN (Reason: Shortness Of Breath) albuterol sulfate 90 mcg/actuation Hfa Aerosol Inhaler 1 puff INHALATION QID PRN (Reason: Shortness Of Breath) Anoro Ellipta 62.5-25 mcg/actuation blister with device 1 inh INHALATION BID Qty: 60 5RF diltiazem HCl [Cardizem CD] 360 mg capsule,extended release 24hr 360 mg PO DAILY 30 Days Qty: 30 0RF montelukast 10 mg tablet 10 mg PO BEDTIME PRN (Reason: Allergy Symptoms) Rx Instructions: 340 B metoprolol tartrate 25 mg tablet 12.5 mg PO DAILY guaifenesin 400 mg tablet 400 mg PO TID PRN (Reason: Congestion) cholecalciferol (vitamin D3) [Vitamin D3] 25 mcg (1,000 unit) Tablet 25 mcg PO DAILY Discharge Orders: Discharge ED (Routine); Ordered 05/23/23 Ordered By: Roya Bautista Referrals: Sd Vargas [Primary Care Provider] - Discharge Diet: Advance as tolerated Discharge Activity: Resume usual activity Patient Instructions: A-fib (Atrial Fibrillation) (ED) Coding Level of Care Code ED Marine Designer for Emely Silva
[2023-05-23 11:41] LABS: INR 0.91 (0.8-1.2)
[2023-05-23 12:09] VITALS: BP 105/53; PULSE 66; RESP 24; O2SAT 100
[2023-05-23 12:44] VITALS: BP 105/53; PULSE 66; RESP 24; O2SAT 100
== END 2023-05-23 12:45 | disposition home or self-care (01) ==
PROVIDERS: Emergency Provider Emergency Medicine; PCP Family Medicine
DX: I48.91 Unspecified atrial fibrillation (principal); Z72.0 Tobacco use; Z85.3 Personal history of malignant neoplasm of breast; I13.0 Hypertensive heart and chronic kidney disease with heart failure and stage 1 through stage 4 chronic kidney disease, or unspecified chronic kidney disease; I50.31 Acute diastolic (congestive) heart failure; E11.22 Type 2 diabetes mellitus with diabetic chronic kidney disease; N18.9 Chronic kidney disease, unspecified; J44.9 Chronic obstructive pulmonary disease, unspecified; R00.2 Palpitations; I48.92 Unspecified atrial flutter; I27.20 Pulmonary hypertension, unspecified; F17.200 Nicotine dependence, unspecified, uncomplicated
CPT/HCPCS: 36415; 71045; 80053; 84484; 85025; 85610; 93005; 99213; 99285

== ENCOUNTER 2023-08-22 14:40 | Emergency (ER) | payer MEDICARE, BC, SELFPAY ==
[2023-08-22 14:42] VITALS: BP 105/59; PULSE 46; RESP 16; TEMP 37.1; O2SAT 97
--- NOTE | 2023-08-22 15:14 | CTR_ITS ---
PROCEDURE INFORMATION: Exam: CT Abdomen And Pelvis With Contrast Exam date and time: 08/22/2023 5:01 PM Age: 72 years old Clinical indication: Abdominal pain; Generalized TECHNIQUE: Imaging protocol: Computed tomography of the abdomen and pelvis with contrast. Radiation optimization: All CT scans at this facility use at least one of these dose optimization techniques: automated exposure control; mA and/or kV adjustment per patient size (includes targeted exams where dose is matched to clinical indication); or iterative reconstruction. Contrast material: OMNI 350; Contrast volume: 100 ml; Contrast route: INTRAVENOUS (IV); COMPARISON: CT abdomen pelvis w con* [id number] 11/06/2022 7:04 PM RADIATION DOSE METRICS: Total DLP (mGy-cm): 473 FINDINGS: Heart: There is unchanged small pericardial fluid collection present. Liver: Unremarkable.No mass. Gallbladder and bile ducts: There has been a cholecystectomy. There is unchanged chronic pneumobilia. Unchanged dilatation of the common hepatic duct with air-fluid level. Pancreas: Unchanged prominent pancreatic duct. Pancreas is otherwise unremarkable. Spleen: The spleen is normal. Adrenal glands: There is multilobulated benign adenomatous enlargement of the left adrenal gland. The right adrenal gland is normal. Kidneys and ureters: There has been a right nephrectomy. The left kidney is normal. There is no evidence of left hydronephrosis. There is no left nephrolithiasis. Stomach and bowel: Extensive diverticulosis is present in the distal colon. There is [id number] diffuse wall thickening of the colon with haziness of the adjacent fat compatible with colitis. There is no evidence of intestinal perforation or obstruction. The loops of small bowel have an appropriate appearance. The stomach is decompressed, preventing meaningful evaluation of wall thickness. Appendix: The appendix is not definitively identified. However, there is no CT evidence of a right lower quadrant inflammatory process. Intraperitoneal space: No fluid collection, abscess or free intraperitoneal air. Vasculature: The aorta demonstrates moderate atherosclerotic calcification. Lymph nodes: Unremarkable.No enlarged lymph nodes. Urinary bladder: The bladder is normal. Reproductive: There has been a hysterectomy. Bones/joints: Unremarkable. No acute fracture. Soft tissues: Unremarkable. CT/CT abdomen pelvis w con* [id number] IMPRESSION: 1. There is [id number] diffuse wall thickening of the colon with haziness of the adjacent fat compatible with colitis. 2. No fluid collection, abscess or free intraperitoneal air. 3. Postoperative cholecystectomy with unchanged pneumobilia and dilated common hepatic duct.
--- NOTE | 2023-08-22 15:14 | W.ED.ABDPA2 ---
HPI - Abdominal Pain General: Chief Complaint: Abdominal Pain Stated Complaint: abd pain, nausea Time Seen by Provider: 08/22/23 14:57 Source: patient and family Mode of arrival: wheelchair Limitations: no limitations History of Present Illness: Patient is a 72-year-old female presents to ED today along with her son for evaluation of abdominal pain. Son states that patient suffers from chronic abdominal pain but over the past 2 to 3 weeks it has been different . Patient states it is more chronic in nature. She is having nausea. Contrary to triage report, patient has not had any vomiting. She is reporting fairly normal bowel movements although has not ate much to form much stool. She has not been running fevers. Patient does have a history of colitis. Also with complaint of a few ulcers in her mouth. MD elicited complaint: abdominal pain Pertinent past history: other (colitis) Onset (ago): day(s) Pain Consistency: constant Location: Diffuse Severity: severe Quality: cramping and aching Radiation: none Migration to: no migration Exacerbating factors: eating Relieving factors: nothing Associated Symptoms: Reports nausea; Denies chills, diarrhea, dysuria, fever(s), heartburn, syncope and vomiting Related Data: Patient : No Review of Systems Const: Denies: fever(s), chills, body aches, fatigue or malaise Eyes: Denies: change in vision, blurry vision or photophobia ENMT: Reports: oral sores; Denies: nasal discharge, nasal congestion or sinus pain Card: Denies: chest pain, palpitations, irregular heart rhythm, lightheadedness, syncope or dyspnea on exertion Resp: Reports: dyspnea (chronic/at baseline; chronically on 3L O2; has not had to increase this); Denies: productive cough or pain on inspiration GI: Reports: abdominal pain and nausea; Denies: vomiting, heartburn or diarrhea : Denies: flank pain or dysuria Musc: Denies: neck pain, back pain, extremity pain, extremity swelling or joint pain Skin/Breast: Denies: rash Neuro: Denies: headache(s), numbness in extremities, weakness in extremities or sensory changes PFS ED PFSH: Medical History Acute blood loss anemia Atrial fibrillation Anemia Diverticulitis GERD (gastroesophageal reflux disease) History of breast cancer Pneumonia Sinus node dysfunction Atrial fibrillation Abdominal pain Chronic kidney disease Atrial fibrillation with RVR Acute kidney injury superimposed on CKD Generalized weakness Fatigue Atrial fibrillation Acute diastolic heart failure Chronic anticoagulation Right heart failure T2DM (type 2 diabetes mellitus) History of syncope Volume overload HERBER (acute kidney injury) Hypokalemia Dehydration Atrial fibrillation with rapid ventricular response HTN (hypertension) with goal to be determined COPD (chronic obstructive pulmonary disease) Abdominal pain Surgical History History of lumpectomy of right breast lymph node removal History of knee replacement History of radical hysterectomy Hx of cholecystectomy Family History Mother , at age 62 Cancer Cervical Emphysema lung Father , at age 64 Black lung disease Social History Smoking and tobacco/nicotine status: current every day tobacco/nicotine user Alcohol intake: never Substance/Drug Use: never Household members: spouse Marital status: / Current occupational status: retired Physical Exam Const: COMMON NORMALS: no acute distress, patient oriented x3, no limitations, alert and well nourished GENERAL APPEARANCE: cooperative ORIENTATION/CONSCIOUSNESS: Yes awake, Yes oriented to person, Yes oriented to place and Yes oriented to time HENMT: MOUTH: Normal oral and palatal mucosa present and lip abnormal (two small aphthous ulcers inner lower lip) Eye: COMMON NORMALS: no scleral icterus GENERAL EYE: appearance normal, both eyes and all related structures Resp: COMMON NORMALS: normal respiratory effort and clear to auscultation bilaterally AUSCULTATION: clear to auscultation bilaterally OTHER: satting normally on her 3L Cardio: COMMON NORMALS: regular rhythm RATE: bradycardic (states her pacemaker is set at 50) RHYTHM: regular rhythm GI: COMMON NORMALS: Soft to palpation, No hepatosplenomegaly present and no masses INSPECTION: Yes normal to inspection AUSCULTATION: Yes Hyperactive bowel sounds present PALPATION: Yes Soft to palpation, Yes Tenderness to palpation present (GI) (diffusely ), No Guarding due to palpation present (GI), No Rigid due to palpation and Yes No hepatosplenomegaly present : COMMON NORMALS: Yes no CVA tenderness BLADDER/KIDNEY EXAM: Yes no CVA tenderness Back/Pelvis: COMMON NORMALS: no CVA tenderness and thoracic and lumbar spine normal to inspection Extremity: GENERAL: Yes normal exam except as noted Neuro: CON COMA SCALE: document GCS findings Con coma scale eye opening: Spontaneous [place] coma scale verbal response: Orientated [place] coma scale motor response: Obey commands Con coma scale total score: 15 COMMON NORMALS: patient oriented x3 SENSORIUM/ORIENTATION: Yes alert, Yes oriented to person, Yes oriented to place and Yes oriented to time Skin: COMMON NORMALS: no rashes or lesions noted GENERAL SKIN EXAM: no rashes or lesions noted Course Vital Signs: Vital signs: Vital Signs Temperature 98.7 F 08/22/23 14:42 Pulse Rate 43 L 08/22/23 15:32 Respiratory Rate 16 08/22/23 14:42 Blood Pressure 92/52 08/22/23 15:32 Pulse Oximetry 98 08/22/23 15:32 Oxygen Delivery Me thod Room Air 08/22/23 15:32 Oxygen Flow Rate 3 08/22/23 14:42 MDM - Abdominal Pain Medical Decision Making Patient appears in no acute distress. She is complaining of acute on chronic abdominal pain. She has a history of colitis. Blood work overall is unremarkable. CT scan showing findings consistent with colitis. Patient's vitals her blood pressure has been soft although looking at previous documentation this is chronic for patient. She is bradycardic but states she had a pacemaker placed back in June and states her rate is set at 50. Patient's not lightheaded or dizzy. I do not have any suspicion that this is infectious colitis. She states she just finished rounds of doxycycline and azithromycin for URI-like symptoms. I feel she would most benefit from steroids over Cipro/Flagyl antibiotic therapy at this time. Return ED precautions given. Otherwise she can follow-up with her primary care provider. Medical Records I reviewed the patient's medical records. Lab Data I reviewed the patient's lab results. 08/22/23 15:35 08/22/23 15:35 Labs/Radiology: Radiology Impressions Abdomen/Pelvis CT 08/22/23 15:14 IMPRESSION: 1. There is [id number] diffuse wall thickening of the colon with haziness of the adjacent fat compatible with colitis. 2. No fluid collection, abscess or free intraperitoneal air. 3. Postoperative cholecystectomy with unchanged pneumobilia and dilated common hepatic duct. Laboratory Results WBC 11.80 10^3/uL (3.29-11.43) H 08/22/23 15:35 RBC 3.73 10^6/uL (3.85-5.65) L 08/22/23 15:35 Hgb 11.80 g/dL (11.27-16.99) 08/22/23 15:35 Hct 37.3 % (36-47) 08/22/23 15:35 MCV 100.0 fl (85-98) H 08/22/23 15:35 MCH 31.6 pg (27-33) 08/22/23 15:35 MCHC 31.6 g/dL (30-55) 08/22/23 15:35 RDW 13.6 % (12.1-15.1) 08/22/23 15:35 Plt Count 378 10^3/cmm (157-399) 08/22/23 15:35 MPV 8.9 fL (7.4-10.4) 08/22/23 15:35 Neut % (Auto) 62.6 % 08/22/23 15:35 Lymph % (Auto) 26.1 % 08/22/23 15:35 [place] % (Auto) 9.2 % 08/22/23 15:35 Eos % (Auto) 1.4 % 08/22/23 15:35 Baso % (Auto) 0.3 % 08/22/23 15:35 Neut # (Auto) 7.37 10^3/uL (1.8-7.7) 08/22/23 15:35 Lymph # (Auto) 3.1 10^3/uL (0.8-4.8) 08/22/23 15:35 [place] # (Auto) 1.1 10^3/uL (0.2-0.9) H 08/22/23 15:35 Eos # (Auto) 0.2 10^3/uL (0.0-0.8) 08/22/23 15:35 Baso # (Auto) 0.0 10^3/uL (0.0-0.1) 08/22/23 15:35 Nucleated RBC % (auto) 0 % 08/22/23 15:35 Nucleated RBCs # 0.0 /100WBC 08/22/23 15:35 Sodium 140 mmol/L (136-145) 08/22/23 15:35 Potassium 3.8 mmol/L (3.5-5.1) 08/22/23 15:35 Chloride 102 mmol/L (98-107) 08/22/23 15:35 Carbon Dioxide 31 mmol/L (22-29) H 08/22/23 15:35 Anion Gap 10.8 (5-19) 08/22/23 15:35 BUN 20 mg/dL (8-23) 08/22/23 15:35 Creatinine 1.0 mg/dL (0.5-0.9) H 08/22/23 15:35 GFR Calculation Not Reportable 08/22/23 15:35 Glucose 104 mg/dL (65-115) 08/22/23 15:35 Calculated Osmolality 293 mOsm/kg (285-295) 08/22/23 15:35 Calcium 8.3 mg/dL (8.5-10.5) L 08/22/23 15:35 Total Bilirubin 0.3 mg/dL (0.15-1.2) 08/22/23 15:35 AST 9 U/L (0-32) 08/22/23 15:35 ALT 6 U/L (0-33) 08/22/23 15:35 Alkaline Phosphatase 68 U/L (35-105) 08/22/23 15:35 Total Protein 5.6 g/dL (6.6-8.7) L 08/22/23 15:35 Albumin 3.4 g/dL (3.5-5.2) L 08/22/23 15:35 Globulin 2.2 g/dL (1.3-4.6) 08/22/23 15:35 Lipase 21 U/L (13-60) 08/22/23 15:35 Urine Color Colorless (Yellow) 08/22/23 16:41 Urine Appearance Clear (CLEAR) 08/22/23 16:41 Urine pH 6.5 (5-7) 08/22/23 16:41 Ur Specific [place] 1.005 (1.005-1.030) 08/22/23 16:41 Urine Protein Neg (Negative) 08/22/23 16:41 Urine Glucose (UA) Norm (Normal) 08/22/23 16:41 Urine Ketones Negative (Negative) 08/22/23 16:41 Urine Blood Neg (Negative) 08/22/23 16:41 Urine Nitrate Negative (Negative) 08/22/23 16:41 Urine Bilirubin Neg (Negative) 08/22/23 16:41 Urine Urobilinogen Norm mg/dL (Negative) 08/22/23 16:41 Ur Leukocyte Esterase Trace (Negative) H 08/22/23 16:41 Urine RBC 0-4 /hpf (0-2) H 08/22/23 16:41 Urine WBC 0-4 /hpf (0-5) H 08/22/23 16:41 Ur Squamous Epith Cells 0-4 /hpf (0-5) H 08/22/23 16:41 Ur Transition Epith Cell 5-10 /hpf 08/22/23 16:41 Amorphous Sediment Not Reportable 08/22/23 16:41 Urine Bacteria None /hpf (NONE) 08/22/23 16:41 Urine Mucus None /hpf 08/22/23 16:41 All radiology interpretation(s) finalized by discharge Discharge Plan Discharge Patient Disposition: Home Clinical Impression: Colitis Condition: Stable Prescriptions: New prednisone 10 mg tablet 10 mg PO DAILY 10 Days Qty: 41 0RF Rx Instructions: Take 6 tabs on days 1-2, 5 tabs on days 3-4, 4 tabs on days 5-6, 3 tabs on day 7-8, 2 tabs on days 9-10, and 1 tab on day 11 No Action (DME) oxygen-air delivery systems Device See Rx Instructions .Route Rx Instructions: As directed hydrocodone-acetaminophen 10-325 mg tablet 1 tab PO Q8H MDD 3 tabs PRN (Reason: Pain) pantoprazole 40 mg tablet,delayed release (DR/EC) 40 mg PO BID 90 Days Qty: 180 0RF zolpidem 10 mg tablet 10 mg PO BEDTIME Qty: 30 1RF alprazolam 0.5 mg tablet 0.5 mg PO BID PRN (Reason: Anxiety) Qty: 60 1RF albuterol sulfate 2.5 mg /3 mL (0.083 %) Solution For Nebulization 2.5 mg INHALATION Q4H PRN (Reason: Shortness Of Breath) albuterol sulfate 90 mcg/actuation Hfa Aerosol Inhaler 1 puff INHALATION QID PRN (Reason: Shortness Of Breath) Anoro Ellipta 62.5-25 mcg/actuation blister with device 1 inh INHALATION BID Qty: 60 5RF montelukast 10 mg tablet 10 mg PO BEDTIME PRN (Reason: Allergy Symptoms) Rx Instructions: 340 B metoprolol tartrate 25 mg tablet 25 mg PO BID guaifenesin 400 mg tablet 400 mg PO TID PRN (Reason: Congestion) cholecalciferol (vitamin D3) [Vitamin D3] 25 mcg (1,000 unit) Tablet 25 mcg PO DAILY promethazine-DM 6.25-15 mg/5 mL syrup 5 ml PO Q6H PRN (Reason: Cough) azithromycin 250 mg tablet See Rx Instructions .ROUTE .COMPLEX Rx Instructions: TAKE 2 TABLETS BY MOUTH ON DAY 1, AND THEN TAKE 1 TABLET BY MOUTH ONCE A DAY ON DAY 2 THROUGH DAY 5 diltiazem HCl 360 mg capsule,extended release 24hr 360 mg PO QAM PreviDent 5000 Booster Plus 1.1 % paste See Rx Instructions .ROUTE .COMPLEX Rx Instructions: USE TO BRUSH TEETH NORMAL ATTEMPT TO LET SIT ON TEETH AN ADDITIONAL 30 SECONDS BEFORE RINSING Xarelto 15 mg Tablet 15 mg PO QAM Rx Instructions: must administer with evening meal Movantik 12.5 mg tablet 12.5 mg PO QAM Gas-X 80 mg Tablet,Chewable 80 mg PO DAILY PRN (Reason: Gastrointestinal Spasms Or Cramping) Discharge Orders: Discharge ED (Routine); Ordered 08/22/23 Ordered By: Laurie Blanton Referrals: Sd Vargas [Primary Care Provider] - Patient Instructions: Colitis (ED) Coding Level of Care Code ED Family Manager for Emely Silva
--- NOTE | 2023-08-22 15:28 | PC.PHAR ---
pt states she takes care of her own medications-pt states she takes xarelto 15mg po qam ext doesnt show when last filled-pt states she finished her zpac on 08/21/23 rx filled 08/17/23 5d/s-notes are made in the pharmacy comments
[2023-08-22] MEDS: sodium chloride 0.9% 1,000 ML 999 ML IV (15:30)
[2023-08-22 15:32] VITALS: BP 92/52; PULSE 43; O2SAT 98
[2023-08-22 15:48] LABS: Basophils % 0.3 %; Eosinophils # 0.2 10^3/uL (0.0-0.8); Eosinophils % 1.4 %; Hematocrit 37.3 % (36-47); Lymphocytes # 3.1 10^3/uL (0.8-4.8); Lymphocytes % 26.1 %; Mean Corpuscular HGB Conc 31.6 g/dL (30-55); Mean Corpuscular Hemoglobin 31.6 pg (27-33); Mean Platelet Volume 8.9 fL (7.4-10.4); Monocytes # 1.1 10^3/uL (0.2-0.9); Monocytes % 9.2 %; Neutrophils # 7.37 10^3/uL (1.8-7.7); Neutrophils % 62.6 %; Nucleated Red Blood Cells % 0 %; Platelet Count 378 10^3/cmm (157-399); Red Blood Count 3.73 10^6/uL (3.85-5.65); Red Cell Distribution Width 13.6 % (12.1-15.1)
[2023-08-22 16:12] LABS: Alanine Aminotransferase 6 U/L (0-33); Albumin Level 3.4 g/dL (3.5-5.2); Alkaline Phosphatase 68 U/L (35-105); Anion Gap 10.8 (5-19); Aspartate Amino Transferase 9 U/L (0-32); Blood Urea Nitrogen 20 mg/dL (8-23); Calcium 8.3 mg/dL (8.5-10.5); Carbon Dioxide 31 mmol/L (22-29); Chloride 102 mmol/L (98-107); Creatinine Clr Calc Pharmacy 48.9282; Globulin 2.2 g/dL (1.3-4.6); Glucose 104 mg/dL (65-115); Lipase 21 U/L (13-60); Osmolality Calculated 293 mOsm/kg (285-295); Potassium 3.8 mmol/L (3.5-5.1); Sodium 140 mmol/L (136-145); Total Bilirubin 0.3 mg/dL (0.15-1.2); Total Protein 5.6 g/dL (6.6-8.7)
[2023-08-22] MEDS: iohexol 350 mg/mL 500 mL Btl (per mL) IV (16:52)
[2023-08-22 17:15] LABS: Add Urine Microscopic? YES; Bilirubin Urine Neg (Negative); Blood Urine Neg (Negative); Glucose Urine UA Norm (Normal); Ketones Urine Negative (Negative); Leukocyte Esterase Urine Trace (Negative); Nitrate Urine Negative (Negative); Protein Urine Neg (Negative); Specific Gravity, Urine 1.005 (1.005-1.030); Urine Appearance Clear (CLEAR); Urine Color Colorless (Yellow); Urobilinogen Urine Norm (Negative); pH Urine 6.5 (5-7)
[2023-08-22 17:33] LABS: Add Urine Culture? No; RBC Urine 0-4 /hpf (0-2); Squamous Epithelial Cell Urine 0-4 /hpf (0-5); WBC Urine 0-4 /hpf (0-5)
== END 2023-08-22 18:12 | disposition home or self-care (01) ==
PROVIDERS: Emergency Medicine; Emergency Provider Physician Assistant; PCP Family Medicine
DX: K52.9 Noninfective gastroenteritis and colitis, unspecified (principal); Z72.0 Tobacco use; Z85.3 Personal history of malignant neoplasm of breast; E11.22 Type 2 diabetes mellitus with diabetic chronic kidney disease; I13.0 Hypertensive heart and chronic kidney disease with heart failure and stage 1 through stage 4 chronic kidney disease, or unspecified chronic kidney disease; N18.9 Chronic kidney disease, unspecified; I50.9 Heart failure, unspecified; J44.9 Chronic obstructive pulmonary disease, unspecified
CPT/HCPCS: 74177; 80053; 81001; 83690; 85025; 99285; J7030; Q9967

== ENCOUNTER 2023-09-05 16:22 | Emergency (ER) | payer MEDICARE, BC, SELFPAY ==
[2023-09-05 16:28] VITALS: BP 114/58; PULSE 84; RESP 18; TEMP 37.1; O2SAT 93
--- NOTE | 2023-09-05 16:35 | XRR_ITS ---
PROCEDURE INFORMATION: Exam: XR Chest Exam date and time: 09/05/2023 3:55 PM Age: 72 years old Clinical indication: Pain; Chest pressure; Prior surgery; Surgery date: 6+ months; Surgery type: Breast; Additional info: Cp TECHNIQUE: Imaging protocol: Radiologic exam of the chest. Views: 1 view. COMPARISON: CR XR chest 1V portable [id number] 05/23/2023 10:56 AM FINDINGS: Lungs: Unremarkable. No consolidation or mass. Pleural spaces: Unremarkable. No pleural effusion. No pneumothorax. Heart/Mediastinum: Mild cardiomegaly is noted. Bones/joints: Unremarkable. XR/XR chest 1V portable [id number] IMPRESSION: No acute findings.
--- NOTE | 2023-09-05 16:35 | ECG_ITS ---
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 Measurements Intervals [place] Rate: 47 P: -48 [place]: 181 QRS: 41 QRSD: 85 T: 63 QT: 413 QTc: 365 Interpretive Statements SINUS BRADYCARDIA POSSIBLE LEFT ATRIAL ENLARGEMENT [-0.1mV P-WAVE IN V1/V2] LOW QRS VOLTAGE IN PRECORDIAL LEADS [QRS DEFLECTION < 1.0 mV IN CHEST LEADS] POSSIBLE ANTERIOR MYOCARDIAL INFARCTION , PROBABLY OLD [30 ms Q WAVE IN V3/V4, OR R < 0.2 mV IN V4] Compared to ECG 05/23/2023 10:54:53 Low QRS voltage now present Myocardial infarct finding now present Atrial fibrillation no longer present Left-axis deviation no longer present Electronically Signed On 09-05-2023 16:47:50 CDT by Harsh Hernandez M.D. [id number]
[2023-09-05 17:10] LABS: Basophils % 0.2 %; Eosinophils # 0.2 10^3/uL (0.0-0.8); Eosinophils % 1.4 %; Hematocrit 39.3 % (36-47); Lymphocytes # 3.7 10^3/uL (0.8-4.8); Lymphocytes % 33.8 %; Mean Platelet Volume 8.3 fL (7.4-10.4); Monocytes # 0.9 10^3/uL (0.2-0.9); Monocytes % 8.5 %; Neutrophils # 6.15 10^3/uL (1.8-7.7); Neutrophils % 55.6 %; Nucleated Red Blood Cells % 0 %; Platelet Count 377 10^3/cmm (157-399); Red Blood Count 3.93 10^6/uL (3.85-5.65); Red Cell Distribution Width 13.6 % (12.1-15.1); White Blood Count 11.05 10^3/uL (3.29-11.43)
[2023-09-05 17:41] LABS: Troponin(5th) Baseline 22 ng/L (0-10)
[2023-09-05 17:44] LABS: INR 0.88 (0.8-1.2)
--- NOTE | 2023-09-05 17:44 | ED_ITS ---
Documented by User: Torres Chairez DO 09/05/23 18:38 HPI - Chest Pain 2 General: Chief Complaint: Chest Pain Stated Complaint: chest pains Time Seen by Provider: 09/05/23 16:56 Source: patient Mode of arrival: ambulatory History of Present Illness: 72 yo female presents to the ER with com plaints of intermittent chest pain that began at night while at rest. Pt denies N/V. Had a hx of atrial fibrilation, CHF, T2DM. She denies fever sweats or chills. No productive cough. She has had myalgias particularlly the legs, with mild swelling. no exacerbating or relieving factors noted. MD complaint: chest pain Timing of current episode: episodic Prior episodes: Yes Onset: during rest Pain location: substernal Relieving factors: nothing Exacerbating factors: nothing Associated symptoms: Reports palpitations; Deny abdominal pain, diaphoresis, dyspnea, fever(s), leg edema, nausea, sense of impending doom, syncope or vomiting Review of Systems 2 Const: Denies: fever(s), chills or diaphoresis Card: Reports: chest pain and palpitations; Denies: syncope Resp: Denies: dyspnea GI: Denies: abdominal pain, nausea or vomiting : Denies: dysuria, urinary frequency or urinary urgency Musc: Denies: neck pain or back pain Skin/Breast: Denies: rash PFSH ED 2 PFSH: Medical History Acute blood loss anemia Atrial fibrillation Anemia Diverticulitis GERD (gastroesophageal reflux disease) History of breast cancer Pneumonia Sinus node dysfunction Atrial fibrillation Abdominal pain Chronic kidney disease Atrial fibrillation with RVR Acute kidney injury superimposed on CKD Generalized weakness Fatigue Atrial fibrillation Acute diastolic heart failure Chronic anticoagulation Right heart failure T2DM (type 2 diabetes mellitus) History of syncope Volume overload HERBER (acute kidney injury) Hypokalemia Dehydration Atrial fibrillation with rapid ventricular response HTN (hypertension) with goal to be determined COPD (chronic obstructive pulmonary disease) Abdominal pain Surgical History History of lumpectomy of right breast lymph node removal History of knee replacement History of radical hysterectomy Hx of cholecystectomy Family History Mother , at age 62 Cancer Cervical Emphysema lung Father , at age 64 Black lung disease Social History Smoking and tobacco/nicotine status: current every day tobacco/nicotine user Alcohol intake: never Substance/Drug Use: never Household members: spouse Marital status: / Current occupational status: retired Physical Exam 2 Const: GENERAL APPEARANCE: cooperative and comfortable O RIENTATION/CONSCIOUSNESS: Yes awake, Yes oriented to person, Yes oriented to place and Yes oriented to time HENMT: COMMON NORMALS: normocephalic, atraumatic and hearing grossly normal bilaterally HEAD & SCALP: normocephalic and atraumatic Resp: COMMON NORMALS: normal respiratory effort, No retractions, No use of accessory muscles and clear to auscultation bilaterally AUSCULTATION: clear to auscultation bilaterally Cardio: COMMON NORMALS: regular rate and No murmurs present (Cardio) RATE: regular rate RHYTHM: abnormal rhythm irregularly irregular GI: COMMON NORMALS: Soft to palpation and No hepatosplenomegaly present A USCULTATION: Yes normoactive bowel sounds PALPATION: Yes Soft to palpation, No Tenderness to palpation present (GI), No Guarding due to palpation present (GI) and Yes No hepatosplenomegaly present Extremity: COMMON NORMALS: normal to inspection, capillary refill normal, no clubbing, cyanosis or edema, no calf tenderness and no pedal edema Neuro: SENSORIUM/ORIENTATION: Yes oriented to person, Yes oriented to place and Yes oriented to time Skin: COMMON NORMALS: no rashes or lesions noted GENERAL SKIN EXAM: no rashes or lesions noted Course 2 Vital Signs: Vital signs: Vital Signs Temperature 98.7 F 09/05/23 16:28 Pulse Rate 66 09/05/23 19:19 Respiratory Rate 18 09/05/23 19:19 Blood Pressure 117/54 09/05/23 19:19 Pulse Oximetry 100 09/05/23 19:19 Oxygen Delivery Me thod Room Air 09/05/23 19:19 Oxygen Flow Rate 3 09/05/23 17:45 MDM - Chest Pain Medical Decision Making Care signed out to Dr. Blunt at change of shift. See final notes for diagnosis and disposition. Lab Data 09/05/23 17:00 09/05/23 17:00 Radiology Impressions Chest X-Ray 09/05/23 16:35 IMPRESSION: No acute findings. Laboratory Results WBC 11.05 10^3/uL (3.29-11.43) 09/05/23 17:00 RBC 3.93 10^6/uL (3.85-5.65) 09/05/23 17:00 Hgb 12.20 g/dL (11.27-16.99) 09/05/23 17:00 Hct 39.3 % (36-47) 09/05/23 17:00 MCV 100.0 fl (85-98) H 09/05/23 17:00 MCH 31.0 pg (27-33) 09/05/23 17:00 MCHC 31.0 g/dL (30-55) 09/05/23 17:00 RDW 13.6 % (12.1-15.1) 09/05/23 17:00 Plt Count 377 10^3/cmm (157-399) 09/05/23 17:00 MPV 8.3 fL (7.4-10.4) 09/05/23 17:00 Neut % (Auto) 55.6 % 09/05/23 17:00 Lymph % (Auto) 33.8 % 09/05/23 17:00 [place] % (Auto) 8.5 % 09/05/23 17:00 Eos % (Auto) 1.4 % 09/05/23 17:00 Baso % (Auto) 0.2 % 09/05/23 17:00 Neut # (Auto) 6.15 10^3/uL (1.8-7.7) 09/05/23 17:00 Lymph # (Auto) 3.7 10^3/uL (0.8-4.8) 09/05/23 17:00 [place] # (Auto) 0.9 10^3/uL (0.2-0.9) 09/05/23 17:00 Eos # (Auto) 0.2 10^3/uL (0.0-0.8) 09/05/23 17:00 Baso # (Auto) 0.0 10^3/uL (0.0-0.1) 09/05/23 17:00 Nucleated RBC % (auto) 0 % 09/05/23 17:00 Nucleated RBCs # 0.0 /100WBC 09/05/23 17:00 PT 12.10 SECONDS (12.1-14.9) 09/05/23 17:00 INR 0.88 (0.8-1.2) 09/05/23 17:00 Sodium 144 mmol/L (136-145) 09/05/23 17:00 Potassium 4.4 mmol/L (3.5-5.1) 09/05/23 17:00 Chloride 105 mmol/L (98-107) 09/05/23 17:00 Carbon Dioxide 32 mmol/L (22-29) H 09/05/23 17:00 Anion Gap 11.4 (5-19) 09/05/23 17:00 BUN 21 mg/dL (8-23) 09/05/23 17:00 Creatinine 1.0 mg/dL (0.5-0.9) H 09/05/23 17:00 GFR Calculation Not Reportable 09/05/23 17:00 Glucose 82 mg/dL (65-115) 09/05/23 17:00 Calculated Osmolality 300 mOsm/kg (285-295) H 09/05/23 17:00 Calcium 8.7 mg/dL (8.5-10.5) 09/05/23 17:00 Total Bilirubin 0.2 mg/dL (0.15-1.2) 09/05/23 17:00 AST 7 U/L (0-32) 09/05/23 17:00 ALT 6 U/L (0-33) 09/05/23 17:00 Alkaline Phosphatase 68 U/L (35-105) 09/05/23 17:00 Troponin T Baseline 22 ng/L (0-10) H 09/05/23 17:00 Troponin T 120 Minute 18.25 ng/L (0-10) H 09/05/23 18:48 Delta Troponin T -3.75 ABS# (0-10) L 09/05/23 18:48 Total Protein 5.3 g/dL (6.6-8.7) L 09/05/23 17:00 Albumin 3.8 g/dL (3.5-5.2) 09/05/23 17:00 Globulin 1.5 g/dL (1.3-4.6) 09/05/23 17:00 Lipase 32 U/L (13-60) 09/05/23 17:00 All radiology interpretation(s) finalized by discharge Discharge Plan Discharge Patient Disposition: Home Clinical Impression: Atypical chest pain Condition: Stable Prescriptions: No Action (DME) oxygen-air delivery systems Device See Rx Instructions .Route Rx Instructions: As directed hydrocodone-acetaminophen 10-325 mg tablet 1 tab PO Q8H MDD 3 tabs PRN (Reason: Pain) pantoprazole 40 mg tablet,delayed release (DR/EC) 40 mg PO BID 90 Days Qty: 180 0RF zolpidem 10 mg tablet 10 mg PO BEDTIME Qty: 30 1RF alprazolam 0.5 mg tablet 0.5 mg PO BID PRN (Reason: Anxiety) Qty: 60 1RF albuterol sulfate 2.5 mg /3 mL (0.083 %) Solution For Nebulization 2.5 mg INHALATION Q4H PRN (Reason: Shortness Of Breath) albuterol sulfate 90 mcg/actuation Hfa Aerosol Inhaler 1 puff INHALATION QID PRN (Reason: Shortness Of Breath) Anoro Ellipta 62.5-25 mcg/actuation blister with device 1 inh INHALATION BID Qty: 60 5RF montelukast 10 mg tablet 10 mg PO BEDTIME PRN (Reason: Allergy Symptoms) Rx Instructions: 340 B metoprolol tartrate 25 mg tablet 25 mg PO BID guaifenesin 400 mg tablet 400 mg PO TID PRN (Reason: Congestion) cholecalciferol (vitamin D3) [Vitamin D3] 25 mcg (1,000 unit) Tablet 25 mcg PO DAILY promethazine-DM 6.25-15 mg/5 mL syrup 5 ml PO Q6H PRN (Reason: Cough) azithromycin 250 mg tablet See Rx Instructions .ROUTE .COMPLEX Rx Instructions: TAKE 2 TABLETS BY MOUTH ON DAY 1, AND THEN TAKE 1 TABLET BY MOUTH ONCE A DAY ON DAY 2 THROUGH DAY 5 diltiazem HCl 360 mg capsule,extended release 24hr 360 mg PO QAM PreviDent 5000 Booster Plus 1.1 % paste See Rx Instructions .ROUTE .COMPLEX Rx Instructions: USE TO BRUSH TEETH NORMAL ATTEMPT TO LET SIT ON TEETH AN ADDITIONAL 30 SECONDS BEFORE RINSING Xarelto 15 mg Tablet 15 mg PO QAM Rx Instructions: must administer with evening meal Movantik 12.5 mg tablet 12.5 mg PO QAM Gas-X 80 mg Tablet,Chewable 80 mg PO DAILY PRN (Reason: Gastrointestinal Spasms Or Cramping) Discharge Orders: Discharge ED (Routine); Ordered 09/05/23 Ordered By: Marshall Blunt Referrals: Sd Vargas [Primary Care Provider] - Discharge Diet: Usual diet Discharge Activity: Resume usual activity Patient Instructions: Opioid Safety, Pain Management Activity Restrictions/Additional Instructions: Activity Restrictions/Additional Instructions: Thank you for choosing [facility] for your healthcare needs today. Please realize that you were seen in the Emergency Department and that we are providing you with an emergency medical screening exam and this may not be a complete and all inclusive of all the testing and or medical work-up that you may need to determine your ailment or severity of your illness. It is very important that you follow-up as instructed with your Primary care provider or Specialist for additional evaluation and to discuss your medical treatment plan. You may return to the Emergency Department should you have concerns or if your condition changes or worsens in any way. Coding Level of Care Code ED Charging Operator for Chg Fwd Documented by User: Marshall Blunt MD 09/06/23 05:40 HPI - Chest Pain 2 General: Chief Complaint: Chest Pain Stated Complaint: chest pains Time Seen by Provider: 09/05/23 16:56 PFS ED 2 PFSH: Medical History Acute blood loss anemia Atrial fibrillation Anemia Diverticulitis GERD (gastroesophageal reflux disease) History of breast cancer Pneumonia Sinus node dysfunction Atrial fibrillation Abdominal pain Chronic kidney disease Atrial fibrillation with RVR Acute kidney injury superimposed on CKD Generalized weakness Fatigue Atrial fibrillation Acute diastolic heart failure Chronic anticoagulation Right heart failure T2DM (type 2 diabetes mellitus) History of syncope Volume overload HERBER (acute kidney injury) Hypokalemia Dehydration Atrial fibrillation with rapid ventricular response HTN (hypertension) with goal to be determined COPD (chronic obstructive pulmonary disease) Abdominal pain Surgical History History of lumpectomy of right breast lymph node removal History of knee replacement History of radical hysterectomy Hx of cholecystectomy Family History Mother , at age 62 Cancer Cervical Emphysema lung Father , at age 64 Black lung disease Social History Smoking and tobacco/nicotine status: current every day tobacco/nicotine user Alcohol intake: never Substance/Drug Use: never Household members: spouse Marital status: / Current occupational status: retired Course 2 Vital Signs: Vital signs: Vital Signs Temperature 98.7 F 09/05/23 16:28 Pulse Rate 66 09/05/23 19:19 Respiratory Rate 18 09/05/23 19:19 Blood Pressure 117/54 09/05/23 19:19 Pulse Oximetry 100 09/05/23 19:19 Oxygen Delivery Me thod Room Air 09/05/23 19:19 Oxygen Flow Rate 3 09/05/23 17:45 MDM - Chest Pain Medical Decision Making Care signed out to Dr. Blunt at change of shift. See final notes for diagnosis and disposition. I have discussed the patient's case with the off going physician <Dr. Chairez > and I have assumed care of the patient. We have discussed the current lab/radiographic results that have been resulted and the pending tests. Medical Records I reviewed the patient's medical records. Lab Data I reviewed the patient's lab results. 09/05/23 17:00 09/05/23 17:00 Radiology Impressions Chest X-Ray 09/05/23 16:35 IMPRESSION: No acute findings. Laboratory Results WBC 11.05 10^3/uL (3.29-11.43) 09/05/23 17:00 RBC 3.93 10^6/uL (3.85-5.65) 09/05/23 17:00 Hgb 12.20 g/dL (11.27-16.99) 09/05/23 17:00 Hct 39.3 % (36-47) 09/05/23 17:00 MCV 100.0 fl (85-98) H 09/05/23 17:00 MCH 31.0 pg (27-33) 09/05/23 17:00 MCHC 31.0 g/dL (30-55) 09/05/23 17:00 RDW 13.6 % (12.1-15.1) 09/05/23 17:00 Plt Count 377 10^3/cmm (157-399) 09/05/23 17:00 MPV 8.3 fL (7.4-10.4) 09/05/23 17:00 Neut % (Auto) 55.6 % 09/05/23 17:00 Lymph % (Auto) 33.8 % 09/05/23 17:00 [place] % (Auto) 8.5 % 09/05/23 17:00 Eos % (Auto) 1.4 % 09/05/23 17:00 Baso % (Auto) 0.2 % 09/05/23 17:00 Neut # (Auto) 6.15 10^3/uL (1.8-7.7) 09/05/23 17:00 Lymph # (Auto) 3.7 10^3/uL (0.8-4.8) 09/05/23 17:00 [place] # (Auto) 0.9 10^3/uL (0.2-0.9) 09/05/23 17:00 Eos # (Auto) 0.2 10^3/uL (0.0-0.8) 09/05/23 17:00 Baso # (Auto) 0.0 10^3/uL (0.0-0.1) 09/05/23 17:00 Nucleated RBC % (auto) 0 % 09/05/23 17:00 Nucleated RBCs # 0.0 /100WBC 09/05/23 17:00 PT 12.10 SECONDS (12.1-14.9) 09/05/23 17:00 INR 0.88 (0.8-1.2) 09/05/23 17:00 Sodium 144 mmol/L (136-145) 09/05/23 17:00 Potassium 4.4 mmol/L (3.5-5.1) 09/05/23 17:00 Chloride 105 mmol/L (98-107) 09/05/23 17:00 Carbon Dioxide 32 mmol/L (22-29) H 09/05/23 17:00 Anion Gap 11.4 (5-19) 09/05/23 17:00 BUN 21 mg/dL (8-23) 09/05/23 17:00 Creatinine 1.0 mg/dL (0.5-0.9) H 09/05/23 17:00 GFR Calculation Not Reportable 09/05/23 17:00 Glucose 82 mg/dL (65-115) 09/05/23 17:00 Calculated Osmolality 300 mOsm/kg (285-295) H 09/05/23 17:00 Calcium 8.7 mg/dL (8.5-10.5) 09/05/23 17:00 Total Bilirubin 0.2 mg/dL (0.15-1.2) 09/05/23 17:00 AST 7 U/L (0-32) 09/05/23 17:00 ALT 6 U/L (0-33) 09/05/23 17:00 Alkaline Phosphatase 68 U/L (35-105) 09/05/23 17:00 Troponin T Baseline 22 ng/L (0-10) H 09/05/23 17:00 Troponin T 120 Minute 18.25 ng/L (0-10) H 09/05/23 18:48 Delta Troponin T -3.75 ABS# (0-10) L 09/05/23 18:48 Total Protein 5.3 g/dL (6.6-8.7) L 09/05/23 17:00 Albumin 3.8 g/dL (3.5-5.2) 09/05/23 17:00 Globulin 1.5 g/dL (1.3-4.6) 09/05/23 17:00 Lipase 32 U/L (13-60) 09/05/23 17:00 Discharge Plan Discharge Patient Disposition: Home Clinical Impression: Atypical chest pain Condition: Stable Prescriptions: No Action (DME) oxygen-air delivery systems Device See Rx Instructions .Route Rx Instructions: As directed hydrocodone-acetaminophen 10-325 mg tablet 1 tab PO Q8H MDD 3 tabs PRN (Reason: Pain) pantoprazole 40 mg tablet,delayed release (DR/EC) 40 mg PO BID 90 Days Qty: 180 0RF zolpidem 10 mg tablet 10 mg PO BEDTIME Qty: 30 1RF alprazolam 0.5 mg tablet 0.5 mg PO BID PRN (Reason: Anxiety) Qty: 60 1RF albuterol sulfate 2.5 mg /3 mL (0.083 %) Solution For Nebulization 2.5 mg INHALATION Q4H PRN (Reason: Shortness Of Breath) albuterol sulfate 90 mcg/actuation Hfa Aerosol Inhaler 1 puff INHALATION QID PRN (Reason: Shortness Of Breath) Anoro Ellipta 62.5-25 mcg/actuation blister with device 1 inh INHALATION BID Qty: 60 5RF montelukast 10 mg tablet 10 mg PO BEDTIME PRN (Reason: Allergy Symptoms) Rx Instructions: 340 B metoprolol tartrate 25 mg tablet 25 mg PO BID guaifenesin 400 mg tablet 400 mg PO TID PRN (Reason: Congestion) cholecalciferol (vitamin D3) [Vitamin D3] 25 mcg (1,000 unit) Tablet 25 mcg PO DAILY promethazine-DM 6.25-15 mg/5 mL syrup 5 ml PO Q6H PRN (Reason: Cough) azithromycin 250 mg tablet See Rx Instructions .ROUTE .COMPLEX Rx Instructions: TAKE 2 TABLETS BY MOUTH ON DAY 1, AND THEN TAKE 1 TABLET BY MOUTH ONCE A DAY ON DAY 2 THROUGH DAY 5 diltiazem HCl 360 mg capsule,extended release 24hr 360 mg PO QAM PreviDent 5000 Booster Plus 1.1 % paste See Rx Instructions .ROUTE .COMPLEX Rx Instructions: USE TO BRUSH TEETH NORMAL ATTEMPT TO LET SIT ON TEETH AN ADDITIONAL 30 SECONDS BEFORE RINSING Xarelto 15 mg Tablet 15 mg PO QAM Rx Instructions: must administer with evening meal Movantik 12.5 mg tablet 12.5 mg PO QAM Gas-X 80 mg Tablet,Chewable 80 mg PO DAILY PRN (Reason: Gastrointestinal Spasms Or Cramping) Discharge Orders: Discharge ED (Routine); Ordered 09/05/23 Ordered By: Marshall Blunt Referrals: Sd Vargas [Primary Care Provider] - Discharge Diet: Usual diet Discharge Activity: Resume usual activity Patient Instructions: Opioid Safety, Pain Management Activity Restrictions/Additional Instructions: Activity Restrictions/Additional Instructions: Thank you for choosing [facility] for your healthcare needs today. Please realize that you were seen in the Emergency Department and that we are providing you with an emergency medical screening exam and this may not be a complete and all inclusive of all the testing and or medical work-up that you may need to determine your ailment or severity of your illness. It is very important that you follow-up as instructed with your Primary care provider or Specialist for additional evaluation and to discuss your medical treatment plan. You may return to the Emergency Department should you have concerns or if your condition changes or worsens in any way. Coding Level of Care Code ED Charging Operator for Emely Silva
[2023-09-05 17:45] VITALS: BP 93/66; PULSE 52; RESP 13; O2SAT 100
[2023-09-05 17:54] LABS: Alanine Aminotransferase 6 U/L (0-33); Albumin Level 3.8 g/dL (3.5-5.2); Alkaline Phosphatase 68 U/L (35-105); Anion Gap 11.4 (5-19); Aspartate Amino Transferase 7 U/L (0-32); Blood Urea Nitrogen 21 mg/dL (8-23); Calcium 8.7 mg/dL (8.5-10.5); Carbon Dioxide 32 mmol/L (22-29); Chloride 105 mmol/L (98-107); Globulin 1.5 g/dL (1.3-4.6); Glucose 82 mg/dL (65-115); Lipase 32 U/L (13-60); Osmolality Calculated 300 mOsm/kg (285-295); Potassium 4.4 mmol/L (3.5-5.1); Sodium 144 mmol/L (136-145); Total Bilirubin 0.2 mg/dL (0.15-1.2); Total Protein 5.3 g/dL (6.6-8.7)
[2023-09-05 18:00] LABS: Creatinine Clr Calc Pharmacy 48.9282
--- NOTE | 2023-09-05 18:35 | ECG_ITS ---
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 Measurements Intervals [place] Rate: 51 P: 0 [place]: 0 QRS: 264 QRSD: 160 T: 67 QT: 486 QTc: 451 Interpretive Statements ELECTRONIC VENTRICULAR PACEMAKER Compared to ECG 09/05/2023 16:25:03 Sinus bradycardia no longer present Myocardial infarct finding no longer present Electronically Signed On 09-06-2023 7:49:37 CDT by Harsh Hernandez M.D. [id number]
--- NOTE | 2023-09-05 18:54 | PC.NURSE ---
received report from Diego SOUSA at this time
[2023-09-05 19:14] LABS: Troponin 5 2HR 18.25 ng/L (0-10)
[2023-09-05 19:15] LABS: Troponin 5 2HR Delta -3.75 ABS# (0-10)
[2023-09-05 19:19] VITALS: BP 117/54; PULSE 66; RESP 18; O2SAT 100
== END 2023-09-05 19:58 | disposition home or self-care (01) ==
PROVIDERS: Emergency Medicine; Emergency Provider Internal Medicine; PCP Family Medicine
DX: R07.89 Other chest pain (principal); Z85.3 Personal history of malignant neoplasm of breast; E11.22 Type 2 diabetes mellitus with diabetic chronic kidney disease; I13.0 Hypertensive heart and chronic kidney disease with heart failure and stage 1 through stage 4 chronic kidney disease, or unspecified chronic kidney disease; N18.9 Chronic kidney disease, unspecified; I50.9 Heart failure, unspecified; J44.9 Chronic obstructive pulmonary disease, unspecified; Z72.0 Tobacco use
CPT/HCPCS: 36415; 71045; 80053; 83690; 84484; 85025; 85610; 93005; 99285

== ENCOUNTER 2023-12-31 10:40 | Outpatient (CLI) | payer MEDICARE, BC, SELFPAY ==
--- NOTE | 2023-12-31 10:47 | MM_ITS ---
WS: [id number] DIAGNOSTIC BILATERAL DIGITAL BREAST TOMOSYNTHESIS MAMMOGRAPHY WITH CAD LEFT breast ultrasound, limited HISTORY: MASS OF AXILLARY TAIL OF L BREAST/HX OF BREAST CA COMPARISON: None available. TECHNIQUE: Bilateral craniocaudad, mediolateral oblique, and mediolateral views are submitted with to mosynthesis and SM. Spot compression LEFT CC and MLO. Computer aided detection utilized. Breast composition: The breasts are heterogeneously dense, which may obscure small masses. There is a spiculated mass in the central LEFT breast near 1:00, best seen on the CC projection with a maximum diameter of 10 mm. There are additional benign scattered calcifications. The palpable marker is plac ed towards the axillary tail and corresponds to a lymph node. This lymph node has a normal fatty hilu m. Numerous calcifications in the RIGHT breast. LEFT breast is smaller than the RIGHT with benign dystro phic calcifications. Surgical clips in the axilla. LEFT breast ultrasound, limited. Hypoechoic spiculated irregular mass LEFT breast at 1:00, 4 cm from the nipple. Mass measures 0.8 x 1 .2 x 0.9 cm. This corresponds to the mammographic abnormality and there is increased vascularity. The re are at least 2 abnormal LEFT axillary lymph nodes. The largest measures 3.1 x 1.2 x 3.1 cm. Displa cement and distortion of the normal fatty hilum with asymmetric thickening of the cortex. Increased v ascularity within each lymph node. MM/[place] [id number] IMPRESSION: BI-RADS: 5-Highly Suggestive of Malignancy FOLLOW UP: Biopsy Recommended 1. Spiculated mass 1:00 LEFT breast at 4 cm to the nipple measures 0.8 x 1.2 x 0.9 cm. Highly suspicious for neoplasm. 2. Abnormal, probable pathologic lymph nodes in the LEFT axilla. 3. Biopsy can be performed by ultrasound of the breast mass and the abnormal l ymph nodes.
== END 2023-12-31 10:41 | disposition home or self-care (01) ==
LOC: RAD 10:41
PROVIDERS: PCP Family Medicine; Visit Provider Family Medicine
DX: N63.32 Unspecified lump in axillary tail of the left breast (principal); Z85.3 Personal history of malignant neoplasm of breast; R92.333 Mammographic heterogeneous density, bilateral breasts; N64.89 Other specified disorders of breast; R59.0 Localized enlarged lymph nodes
CPT/HCPCS: 76642; 77062; G0279

== ENCOUNTER → 2025-02-18 09:14 | Outpatient (BNVA) | payer MEDICARE, BC, SELFPAY | PROVIDERS: PCP Family Medicine; Visit Provider Student in an Organized Health Care Education/Training Program | DX: M25.561 Pain in right knee (principal); M25.569 Pain in unspecified knee | CPT/HCPCS: 20610; 73560; 73565; 99204; J3301; J9999 ==

== ENCOUNTER → 2025-04-21 13:37 | Outpatient (BNVA) | payer MEDICARE, BC, SELFPAY | PROVIDERS: PCP Family Medicine; Visit Provider Student in an Organized Health Care Education/Training Program | DX: M17.11 Unilateral primary osteoarthritis, right knee (principal); M25.569 Pain in unspecified knee | CPT/HCPCS: 20610; 73560; 73565; 99213 ==

== ENCOUNTER 2025-05-25 13:18 | Emergency (ER) | payer MEDICARE, BC, SELFPAY ==
[2025-05-25 13:21] VITALS: BP 108/52; PULSE 50; TEMP 36.9; O2SAT 97; BMI 24.2
--- NOTE | 2025-05-25 13:34 | CT_ITS ---
WS: [id number] CT ABDOMEN AND PELVIS WITH CONTRAST HISTORY: abd pain TECHNIQUE: Imaging performed of the abdomen and pelvis with IV contrast. Single phase imaging of the abdomen. Coronal and sagittal reformats are submitted. All CT scans at [facility] use at least one of these dose optimization techniques: automated exposure control; mA and/or kV adjustment per patient size (includes targeted exams where dose is matched to clinical indication); or iterative reconstruction. IV CONTRAST: Omnipaque 350; 100 mL IV. Oral contrast: No DLP: 609.23 mGy.cm COMPARISON: 08/22/2023 Lower thorax: Lung bases are clear. Mild cardiomegaly. No hiatal hernia. Liver/biliary system: Normal size liver with pneumobilia. No mass. Normal portal vein. Gallbladder: Prior cholecystectomy. Markedly dilated common bile duct similar to prior studies. Pancreas: Diffuse atrophic pancreas. Pancreatic duct is dilated. Spleen: Normal size spleen. No mass or infarct. Adrenal glands: Normal. Right kidney: Absent. Left kidney: Normal. Aorta: Moderate atherosclerosis with no aneurysm. Lymphadenopathy: None. Free fluid: None. GI tract: Nondistended stomach. No small bowel obstruction. There is air along the anterior surface of the liver but this does appear to be within the lumen of the GI tract. Marked fecal retention in the cecum. The cecum is low-lying within the pelvis. There is diffuse constipation. Diverticular disease without acute diverticulitis. No obstructive pattern. Abdominal wall: Unremarkable abdominal wall. No hernia. Pelvis: Nondistended urinary bladder. Absent uterus. Bones: Osteopenia. Sclerotic focus in the RIGHT acetabulum is stable. CT/CT abdomen pelvis w con* [id number] IMPRESSION: 1. Diffuse marked constipation without evidence for an obstruction. 2. Diverticular disease without evidence for acute diverticulitis. 3. No free fluid or free air identified. 4. Pneumobilia. Status post cholecystectomy. 5. Markedly dilated common bile duct is similar to prior studies. 6. Pancreatic atrophy and pancreatic duct dilatation has been previously descr ibed also. 7. Absent RIGHT kidney.
--- NOTE | 2025-05-25 13:35 | ED_ITS ---
HPI - Abdominal Pain 2 General: Chief Complaint: Abdominal Pain Stated Complaint: abdominal cramping and pain Time Seen by Provider: 05/25/25 13:29 Source: patient Mode of arrival: ambulatory Limitations: no limitations History of Present Illness: 74-year-old female states she has been h aving ongoing abdominal pain for over a month. States has been a cramping diffuse pain. She denies any worse or improving factors. She denies any fevers denies any vomiting or diarrhea denies any worse or improving factors. Related Data Home Medications ?Medication ?Instructions ?Recorded ?Confirmed albuterol sulfate 2.5 mg/3 mL 2.5 mg inhalation Q4H DC N 01/29/22 04/21/25 (0.083 %) solution for nebulization Shortness Of Breat h albuterol sulfate 90 mcg/actuation 1 puff inhalation Q ID PRN 01/29/22 04/21/25 aerosol inhaler Shortness Of Breath cholecalciferol (vitamin D3) 25 25 mcg PO DAILY 04/21/25 mcg (1,000 unit) tablet (Vitamin D3) guaifenesin 400 mg tablet 400 mg PO TID PRN Congestion 03/20/22 04/21/25 oxygen-air delivery systems 11/16/22 04/21/25 hydrocodone 10 mg-acetaminophen 1 tab PO Q8H PRN Pain 01/01/23 04/21/25 325 mg tablet metoprolol tartrate 25 mg tablet 25 mg PO BID 05/18/23 04/21/25 montelukast 10 mg tablet 10 mg PO BEDTIME PRN Allergy 05/18/23 04/21/25 Symptoms azithromycin 250 mg tablet See Rx Instructions .Route .COMPLEX 08/22/23 04/21/25 diltiazem HCl 360 mg 360 mg PO QAM 08/22/2304/21 capsule,extended release 24 hr fluoride (sodium) 1.1 % dental See Rx Instructions .Ro jocelyn .COMPLEX 08/22/23 04/21/25 paste (PreviDent 5000 Booster Plus) naloxegol 12.5 mg tablet (Movantik) 12.5 mg PO QAM 12/0904/21/25 promethazine-DM 6.25 mg-15 mg/5 mL 5 ml PO Q6H PRN Cou gh 08/22/23 04/21/25 oral syrup rivaroxaban 15 mg tablet (Xarelto) 15 mg PO QAM 04/21/25 simethicone 80 mg chewable tablet 80 mg PO DAILY PRN 0 08/22/23 04/21/25 Gastrointestinal Spasms Or Cramping Previous Rx's ?Medication ?Instructions ?Recorded umeclidinium 62.5 mcg-vilanterol 1 inh inhalation BID #60 ea 06/27/22 25 mcg/actuation powdr for inhalation (Anoro Ellipta) pantoprazole 40 mg tablet,delayed 40 mg PO BID 3 month s #180 tabs 09/18/22 release zolpidem 10 mg tablet 10 mg PO BEDTIME #30 tabs alprazolam 0.5 mg tablet 0.5 mg PO BID PRN Anxiety #6 0 tabs 10/19/22 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 #1 ea 02/18/25 polyethylene glycol 3350 17 gram 17 g PO DAILY PRN con stipation #14 05/25/25 oral powder packet (Miralax) ea Allergies Allergy/AdvReac Type Severity Reaction Status Date / Time morphine Allergy ALGY-Hives Verified 05/25/25 13:26 Penicillins Allergy ALGY-Hives Verified 05/25/25 13:26 Review of Systems 2 GI: Reports: abdominal pain PFSH ED 2 PFSH: Medical History (Updated 05/25/25 @ 14:29 by Roya Bautista MD) Acute blood loss anemia Atrial fibrillation Anemia Diverticulitis GERD (gastroesophageal reflux disease) History of breast cancer Pneumonia Sinus node dysfunction Atrial fibrillation Abdominal pain Chronic kidney disease Atrial fibrillation with RVR Acute kidney injury superimposed on CKD Generalized weakness Fatigue Atrial fibrillation Acute diastolic heart failure Chronic anticoagulation Right heart failure T2DM (type 2 diabetes mellitus) History of syncope Volume overload HERBER (acute kidney injury) Hypokalemia Dehydration Atrial fibrillation with rapid ventricular response HTN (hypertension) with goal to be determined COPD (chronic obstructive pulmonary disease) Abdominal pain Surgical History History of lumpectomy of right breast lymph node removal History of knee replacement History of radical hysterectomy Hx of cholecystectomy Family History Mother , at age 62 Cancer Cervical Emphysema lung Father , at age 64 Black lung disease Social History Smoking and tobacco/nicotine status: current every day tobacco/nicotine user Alcohol intake: never Substance/Drug Use: never Household members: spouse Marital status: / Current occupational status: retired Physical Exam 2 Const: COMMON NORMALS: no acute distress, patient oriented x3 and healthy appearing HENMT: COMMON NORMALS: normocephalic and atraumatic HEAD & SCALP: n ormocephalic and atraumatic Neck/C-Spine: COMMON NORMALS: full ROM and supple Chest: COMMONS NORMALS: normal inspection of the chest Resp: COMMON NORMALS: normal respiratory effort, No retractions, No use of accessory muscles and clear to auscultation bilaterally AUSCULTATION: clear to auscultation bilaterally Cardio: COMMON NORMALS: regular rate, regular rhythm and No murmurs present (Cardio) RATE: regular rate RHYTHM: regular rhythm GI: COMMON NORMALS: Normal to inspection, nondistended, normoactive bowel sounds present, Soft to palpation and no masses PALPATION: Yes Soft to palpation OTHER: diffuse mild tenderness Extremity: COMMON NORMALS: normal to inspection and full ROM Neuro: COMMON NORMALS: patient oriented x3, moves all extremities and no focal motor deficits Psych: COMMON NORMALS: mental status grossly normal, Normal thought process present and cooperative THOUGHT PROCESS: Normal thought process present Skin: COMMON NORMALS: no rashes or lesions noted and no wounds GENERAL SKIN EXAM: no rashes or lesions noted Course 2 Vital Signs: Vital signs: Vital Signs Temperature 98.5 F 05/25/25 13:21 Pulse Rate 50 L 05/25/25 14:00 Blood Pressure 110/48 05/25/25 14:00 Pulse Oximetry 100 05/25/25 14:00 Oxygen Delivery Me thod Nasal Cannula 05/25/25 14:00 Oxygen Flow Rate 3 05/25/25 14:00 MDM - Abdominal Pain Medical Decision Making 74-year-old female presents here with abdominal pains going on for months. Differential includes constipation, appendicitis, bowel obstruction. Labs here showed no significant abnormality. Did do a CT scan that showed constipation no other findings. Her abdominal exam here is benign with no exquisite tenderness this is likely constipation causing her pain. Will give her a dose of lactulose she is to take MiraLAX she is follow-up with her PCP and return if worsening I did go over all her findings with her she understands agrees to plan. Medical Records I reviewed the patient's medical records. Lab Data I reviewed the patient's lab results. 05/25/25 13:36 05/25/25 13:36 Labs/Radiology: Radiology Impressions Abdomen/Pelvis CT 05/25/25 13:34 IMPRESSION: 1. Diffuse marked constipation without evidence for an obstruction. 2. Diverticular disease without evidence for acute diverticulitis. 3. No free fluid or free air identified. 4. Pneumobilia. Status post cholecystectomy. 5. Markedly dilated common bile duct is similar to prior studies. 6. Pancreatic atrophy and pancreatic duct dilatation has been previously described also. 7. Absent RIGHT kidney. Laboratory Results WBC 7.37 10^3/uL (3.29-11.43) 05/25/25 13:36 RBC 3.98 10^6/uL (3.85-5.65) 05/25/25 13:36 Hgb 12.70 g/dL (11.27-16.99) 05/25/25 13:36 Hct 39.4 % (36-47) 05/25/25 13:36 MCV 99.0 fl (85-98) H 05/25/25 13:36 MCH 31.9 pg (27-33) 05/25/25 13:36 MCHC 32.2 g/dL (30-55) 05/25/25 13:36 RDW 14.0 % (12.1-15.1) 05/25/25 13:36 Plt Count 270 10^3/cmm (157-399) 05/25/25 13:36 MPV 8.3 fL (7.4-10.4) 05/25/25 13:36 Neut % (Auto) 73.1 % 05/25/25 13:36 Lymph % (Auto) 16.3 % 05/25/25 13:36 [place] % (Auto) 8.7 % 05/25/25 13:36 Eos % (Auto) 1.4 % 05/25/25 13:36 Baso % (Auto) 0.4 % 05/25/25 13:36 Neut # (Auto) 5.39 10^3/uL (1.8-7.7) 05/25/25 13:36 Lymph # (Auto) 1.2 10^3/uL (0.8-4.8) 05/25/25 13:36 [place] # (Auto) 0.6 10^3/uL (0.2-0.9) 05/25/25 13:36 Eos # (Auto) 0.1 10^3/uL (0.0-0.8) 05/25/25 13:36 Baso # (Auto) 0.0 10^3/uL (0.0-0.1) 05/25/25 13:36 Nucleated RBC % (auto) 0 % 05/25/25 13:36 Nucleated RBCs # 0.0 /100WBC 05/25/25 13:36 Sodium 137 mmol/L (136-145) 05/25/25 13:36 Potassium 4.7 mmol/L (3.5-5.1) 05/25/25 13:36 Chloride 99 mmol/L (98-107) 05/25/25 13:36 Carbon Dioxide 35 mmol/L (22-29) H 05/25/25 13:36 Anion Gap 7.7 (5-19) 05/25/25 13:36 BUN 14 mg/dL (8-23) 05/25/25 13:36 Creatinine 0.9 mg/dL (0.5-0.9) 05/25/25 13:36 GFR Calculation Not Reportable 05/25/25 13:36 Glucose 97 mg/dL (65-115) 05/25/25 13:36 Calculated Osmolality 284 mOsm/kg (285-295) L 05/25/25 13:36 Calcium 9.4 mg/dL (8.5-10.5) 05/25/25 13:36 Total Bilirubin 0.4 mg/dL (0.15-1.2) 05/25/25 13:36 AST 13 U/L (0-32) 05/25/25 13:36 ALT 9 U/L (0-33) 05/25/25 13:36 Alkaline Phosphatase 70 U/L (35-105) 05/25/25 13:36 Total Protein 6.2 g/dL (6.6-8.7) L 05/25/25 13:36 Albumin 3.9 g/dL (3.5-5.2) 05/25/25 13:36 Globulin 2.3 g/dL (1.3-4.6) 05/25/25 13:36 Lipase 18 U/L (13-60) 05/25/25 13:36 All radiology interpretation(s) finalized by discharge Discharge Plan Discharge Patient Disposition: Home Clinical Impression: Constipation Condition: Stable Prescriptions: New polyethylene glycol 3350 [Miralax] 17 gram powder in packet 17 g PO DAILY PRN (Reason: constipation) Qty: 14 0RF No Action (DME) oxygen-air delivery systems Device See Rx Instructions .Route Rx Instructions: As directed hydrocodone-acetaminophen 10-325 mg tablet 1 tab PO Q8H MDD 3 tabs PRN (Reason: Pain) pantoprazole 40 mg tablet,delayed release (DR/EC) 40 mg PO BID 90 Days Qty: 180 0RF zolpidem 10 mg tablet 10 mg PO BEDTIME Qty: 30 1RF (DME) 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 Knee Brace See Rx Instructions .Route .MEDSUPPLY Qty: 1 0RF Rx Instructions: As directed alprazolam 0.5 mg tablet 0.5 mg PO BID PRN (Reason: Anxiety) Qty: 60 1RF albuterol sulfate 2.5 mg /3 mL (0.083 %) Solution For Nebulization 2.5 mg INHALATION Q4H PRN (Reason: Shortness Of Breath) albuterol sulfate 90 mcg/actuation Hfa Aerosol Inhaler 1 puff INHALATION QID PRN (Reason: Shortness Of Breath) Anoro Ellipta 62.5-25 mcg/actuation blister with device 1 inh INHALATION BID Qty: 60 5RF montelukast 10 mg tablet 10 mg PO BEDTIME PRN (Reason: Allergy Symptoms) Rx Instructions: 340 B metoprolol tartrate 25 mg tablet 25 mg PO BID guaifenesin 400 mg tablet 400 mg PO TID PRN (Reason: Congestion) cholecalciferol (vitamin D3) [Vitamin D3] 25 mcg (1,000 unit) Tablet 25 mcg PO DAILY promethazine-DM 6.25-15 mg/5 mL syrup 5 ml PO Q6H PRN (Reason: Cough) azithromycin 250 mg tablet See Rx Instructions .ROUTE .COMPLEX Rx Instructions: TAKE 2 TABLETS BY MOUTH ON DAY 1, AND THEN TAKE 1 TABLET BY MOUTH ONCE A DAY ON DAY 2 THROUGH DAY 5 diltiazem HCl 360 mg capsule,extended release 24hr 360 mg PO QAM PreviDent 5000 Booster Plus 1.1 % paste See Rx Instructions .ROUTE .COMPLEX Rx Instructions: USE TO BRUSH TEETH NORMAL ATTEMPT TO LET SIT ON TEETH AN ADDITIONAL 30 SECONDS BEFORE RINSING Xarelto 15 mg Tablet 15 mg PO QAM Rx Instructions: must administer with evening meal Movantik 12.5 mg tablet 12.5 mg PO QAM Gas-X 80 mg Tablet,Chewable 80 mg PO DAILY PRN (Reason: Gastrointestinal Spasms Or Cramping) Discharge Orders: Discharge ED (Routine); Ordered 05/25/25 Ordered By: Roya Bautista Referrals: Sd Vargas [Primary Care Provider, Family Practice] - 4-7 days Discharge Diet: Advance as tolerated Discharge Activity: Resume usual activity Patient Instructions: Constipation (ED) Print Language: [place] Irish Coding Level of Care Code ED Intraoperative Neuro Tech for Emely Silva
[2025-05-25 13:41] LABS: Hematocrit 39.4 % (36-47); Hemoglobin 12.70 g/dL (11.27-16.99); Mean Corpuscular HGB Conc 32.2 g/dL (30-55); Mean Corpuscular Hemoglobin 31.9 pg (27-33); Mean Corpuscular Volume 99.0 fl (85-98); Nucleated Red Blood Cells % 0 %; Platelet Count 270 10^3/cmm (157-399); Red Blood Count 3.98 10^6/uL (3.85-5.65); White Blood Count 7.37 10^3/uL (3.29-11.43)
[2025-05-25] MEDS: ondansetron 2 mg/ML SDV 2 mL 4 MG IVP (13:47)
[2025-05-25] MEDS: iohexol 350 mg/mL 500 mL Btl (per mL) IV (13:57)
[2025-05-25 13:58] LABS: Alanine Aminotransferase 9 U/L (0-33); Albumin Level 3.9 g/dL (3.5-5.2); Alkaline Phosphatase 70 U/L (35-105); Anion Gap 7.7 (5-19); Aspartate Amino Transferase 13 U/L (0-32); Blood Urea Nitrogen 14 mg/dL (8-23); Calcium 9.4 mg/dL (8.5-10.5); Carbon Dioxide 35 mmol/L (22-29); Chloride 99 mmol/L (98-107); Globulin 2.3 g/dL (1.3-4.6); Glucose 97 mg/dL (65-115); Lipase 18 U/L (13-60); Osmolality Calculated 284 mOsm/kg (285-295); Potassium 4.7 mmol/L (3.5-5.1); Sodium 137 mmol/L (136-145); Total Protein 6.2 g/dL (6.6-8.7)
[2025-05-25 14:00] VITALS: BP 110/48; PULSE 50; O2SAT 100
[2025-05-25] MEDS: lactulose oral liq 20 gm/30 mL UDC 30 GM PO (14:34)
[2025-05-25 14:44] VITALS: BP 122/52; PULSE 51; O2SAT 100
== END 2025-05-25 14:45 | disposition home or self-care (01) ==
PROVIDERS: Emergency Provider Emergency Medicine; PCP Family Medicine
DX: K59.00 Constipation, unspecified (principal); Z72.0 Tobacco use; J44.9 Chronic obstructive pulmonary disease, unspecified; Z85.3 Personal history of malignant neoplasm of breast; E11.22 Type 2 diabetes mellitus with diabetic chronic kidney disease; I13.0 Hypertensive heart and chronic kidney disease with heart failure and stage 1 through stage 4 chronic kidney disease, or unspecified chronic kidney disease; N18.9 Chronic kidney disease, unspecified; I50.31 Acute diastolic (congestive) heart failure
CPT/HCPCS: 36415; 74177; 80053; 83690; 85025; 96374; 99285; J2405; J9999

== ENCOUNTER → 2025-06-02 13:56 | Outpatient (BNVA) | payer MEDICARE, BC, SELFPAY | PROVIDERS: PCP Family Medicine; Visit Provider Student in an Organized Health Care Education/Training Program | DX: M17.11 Unilateral primary osteoarthritis, right knee (principal) | CPT/HCPCS: 20610; 99213; J3301; J9999 ==